=== PATIENT | male | born 1940 | race Caucasian/White ===

== ENCOUNTER 2022-08-07 09:10 | Outpatient (OUT) | payer MEDICARE, SELFPAY ==
--- NOTE | 2022-08-07 09:14 | CT_ITS ---
[address] [address] Patient Name: SUNNI JACKSON MRN: [id number] date: 1940 Sex: M Assigned Patient Location: CT Current Patient Location: CT Accession/Order Number: [id number] Exam Date: 08/07/2022 09:45 Report Date: 08/08/2022 07:39 At the request of: KATARINA RAMEY Procedure: CT chest wo con EXAMINATION: CT chest wo con HISTORY: Chronic Cough R05.3, Tobacco User Z72.0 COMPARISON: No relevant comparison available. TECHNIQUE: Multi-planar CT images were obtained without and/or with IV contrast as indicated by examination type. Axial, Coronal, and Sagittal images. Dose reduction techniques were achieved by using automated exposure control and/or adjustment of mA and/or kV according to patient size and/or use of iterative reconstruction technique. FINDINGS: LUNGS: Numerous blebs and small bulla throughout the lungs. Mild emphysematous changes. No acute infiltrates or mass. PLEURA: No mass, effusion, or pneumothorax. VASCULATURE: No abnormality. HERNAN: No mass or adenopathy. MEDIASTINUM: No mass or adenopathy. CARDIAC: No enlargement, pericardial thickening, or significant calcification. AORTA: No aneurysm or dissection. CHEST WALL: 8 mm hypodense nodule within right thyroid lobe. No axillary mass or lymphadenopathy. BONES: Marked degenerative disc disease of the visible lower cervical spine. L1 mild anterior wedging from remote compression fracture versus developmental, and mild grade 1 retrolisthesis of L1 on 2. LIMITED ABDOMEN: No suspicious findings Limited images of the upper abdomen. OTHER: Negative. IMPRESSION: 1. Mild emphysematous changes along with numerous chronic blebs and small bulla; grossly stable. 2. No acute infiltrates or mass. 3. Additional stable chronic changes detailed above. Electronically authenticated by: ARTEM MIRANDA Date: 08/08/2022 07:39
== END 2022-08-07 09:11 ==
LOC: CT 09:10
PROVIDERS: PCP Nurse Practitioner; Visit Provider Nurse Practitioner
DX: R05.3 Chronic cough (principal); Z72.0 Tobacco use
CPT/HCPCS: 71250

== ENCOUNTER 2022-09-21 08:59 | Outpatient (OUT) | payer MEDICARE, SELFPAY ==
[2022-09-21 09:07] LABS: Hemoglobin 11.9 g/dL (14.0-18.0)
--- NOTE | 2022-09-21 10:17 | RT_ITS ---
[facility] Test Date: 2022-09-21 Pat Name: SUNNI JACKSON Department: Room: - Gender: Male Mat Repairer: Cricket Dutta RRT : 1940 Requested By: KATARINA RAMEY Order Number: [id number] Reading MD: Salo England Interpretive Statements Pulmonary function testing was completed according to ATS criteria. Findings were considered accurate and reproducible. Both pre- and post-bronchodilator values utilized for spirometry. No prior studies available for comparison. Spirometry (based on pre-bronchodilator values): -FEV1/FVC: Reduced @ 66% -FEV1: Moderately reduced @ 75% -FVC: Reduced @ 78% -There is no significant bronchodilator response. Lung volumes by plethysmography (based on pre-bronchodilator values): -RV: Normal @ 112% -TLC: Normal @ 94% Diffusion capacity: -DLCO: Moderate reduction @ 69% when corrected for Hb 11.9g/dL Flow-volume loop: -Moderate obstructive pattern Impressions: -Moderate obstruction in spirometry without a bronchodilator response, normal lung volumes, moderate diffusion impairment. Overall study is compatible with COPD/emphysema. Clinical correlation required. Clinical correlation required. Electronically Signed On 09-21-2022 14:07:43 EDT by Salo England
[2022-09-21] MEDS: ALBUTEROL SULFATE 2.5 MG/3 ML VIAL NEB IH (10:18)
== END 2022-09-21 09:00 | disposition home or self-care (01) ==
LOC: CARD 08:59
PROVIDERS: PCP Nurse Practitioner; Visit Provider Nurse Practitioner
DX: J43.9 Emphysema, unspecified (principal); R94.2 Abnormal results of pulmonary function studies
CPT/HCPCS: 36415; 85018; 94060; 94726; 94729

== ENCOUNTER 2022-11-07 13:35 | Outpatient (OUT) | payer MEDICARE, SELFPAY ==
--- NOTE | 2022-11-07 13:49 | US_ITS ---
[place] [id number] Patient Name: SUNNI JACKSON MRN: [id number] date: 1940 Sex: M Assigned Patient Location: Current Patient Location: Accession/Order Number: [id number] Exam Date: 11/07/2022 13:45 Report Date: 11/08/2022 07:20 At the request of: KEITH DURHAM Procedure: US carotid duplex BI EXAMINATION: US carotid duplex BI HISTORY: Shortness Of Breath, Stenosis Of Carotid Artery COMPARISON: No relevant comparison available. TECHNIQUE: Duplex Doppler ultrasound analysis of carotid and vertebral arteries. . Bilateral carotid arterial duplex examination was performed using B-mode, color flow and spectral analysis. Carotid stenosis is reported according to validated velocity parameters, similar to NASCET criteria. FINDINGS: RIGHT CAROTID ARTERY Mild atherosclerotic plaque Subclavian: PSV: 197.6 cm/s cm/s EDV: 0.0 cm/s cm/s CCA: Prox: PSV: 70.8 cm/s cm/s EDV: 15.6 cm/s cm/s Mid: PSV: 52.9 cm/s cm/s EDV: 12.8 cm/s cm/s Distal: PSV: 47.8 cm/s cm/s EDV: 8.9 cm/s cm/s BULB: PSV: 42.6 cm/s cm/s EDV: 8.9 cm/s cm/s ICA: Prox: PSV: 63.3 cm/s cm/s EDV: 15.4 cm/s cm/s Mid: PSV: 69.7 cm/s cm/s EDV: 21.9 cm/s cm/s Distal: PSV: 95.0 cm/s cm/s EDV: 25.3 cm/s cm/s ECA: PSV: 155.4 cm/s cm/s EDV: 13.7 cm/s cm/s VERTEBRAL: PSV: 54.2 cm/s cm/s EDV: 15.4 cm/s cm/s, antegrade ICA/CCA ratio: PSV: 2.0 EDV: 2.8 LEFT CAROTID ARTERY Mild atherosclerotic plaque Subclavian: PSV: 91.8 cm/s cm/s EDV: 0.0 cm/s CCA: Prox: PSV: 59.4 cm/s cm/s EDV: 15.4 cm/s Mid: PSV: 52.9 cm/s cm/s EDV: 15.4 cm/s Distal: PSV: 54.2 cm/s cm/s EDV: 16.7 cm/s BULB: PSV: 41.3 cm/s cm/s EDV: 11.5 cm/s ICA: Prox: PSV: 92.7 cm/s cm/s EDV: 23.0 cm/s Mid: PSV: 92.7 cm/s cm/s EDV: 30.0 cm/s Distal: PSV: 88.1 cm/s cm/s EDV: 25.3 cm/s ECA: PSV: 82.2 cm/s cm/s EDV: 11.1 cm/s VERTEBRAL: PSV: 82.2 cm/s cm/s EDV: 22.5 cm/s antegrade ICA/CCA ratio: PSV: 1.7 EDV: 1.4 US/US carotid duplex BI IMPRESSION: 0-49% flow stenosis bilateral internal carotid arteries Spectral Doppler US Thresholds (Reference: Koby EG, et al. Radiology 2000; 214:247-252) Stenosis (%) PSV (cm/sec) VICA/VCCA 0-49 <150 <2.5 50-69 150-225 2.5-4.0 >70 >225 >4.0 Electronically authenticated by: SAVAGE OATES Date: 11/08/2022 07:20
== END 2022-11-07 13:36 | disposition home or self-care (01) ==
LOC: US 13:36
PROVIDERS: PCP Nurse Practitioner
DX: I73.9 Peripheral vascular disease, unspecified (principal); I65.29 Occlusion and stenosis of unspecified carotid artery; R06.02 Shortness of breath; R09.89 Other specified symptoms and signs involving the circulatory and respiratory systems
CPT/HCPCS: 93880

== ENCOUNTER 2022-11-10 08:29 | Outpatient (OUT) | payer MEDICARE, SELFPAY ==
--- NOTE | 2022-11-10 08:37 | MR_ITS ---
[address] [address] Patient Name: SUNNI JACKSON MRN: [id number] date: 1940 Sex: M Assigned Patient Location: MRI Current Patient Location: MRI Accession/Order Number: [id number] Exam Date: 11/10/2022 09:00 Report Date: 11/10/2022 14:55 At the request of: DELMY MENA Procedure: MR lumbar spine wo con EXAMINATION: MR lumbar spine wo con HISTORY: Spinal Stenosis M48.061 COMPARISON: No relevant comparison available. TECHNIQUE: A variety of imaging planes and parameters were utilized for visualization of suspected pathology. FINDINGS: For the purposes of numbering, sagittal T2 image # 8 extends from the T10-T11 vertebral body superiorly to the S3 level inferiorly. PARASPINAL AREA: Ectasia of the distal abdominal aorta measuring 2.5 cm in diameter BONES: Mild anterior wedging at T12 and L1 vertebral bodies, chronic. Moderate degenerative spondylosis. 2 mm retrolisthesis of L1 on L2 CORD/CAUDA EQUINA: Normal caliber, contour, and signal intensity. DISC LEVELS: 12-L1: Moderate degenerative disc disease is present without visible neural impingement. L1-L2: Moderate degenerative disc disease is present without visible neural impingement. L2-L3: Moderate degenerative disc disease is present without visible neural impingement. L3-L4: Disc desiccation. Left foraminal disc herniation the protrusion type extending posteriorly up to 3.5 mm sagittal image #6. No central or foraminal stenosis L4-L5: Early degenerative disc disease is present without focal protrusion or neural impingement. L5-S1: Moderate disc space narrowing and disc desiccation. Moderate diffuse disc bulge with right foraminal disc herniation of the protrusion type extending posteriorly up to 3 mm. No central canal or left foraminal stenosis. Moderate narrowing of the right neural foramen MR/MR lumbar spine wo con IMPRESSION: Degenerative changes most significant at L5-S1 where there is moderate right foraminal stenosis Electronically authenticated by: SAVAGE OATES Date: 11/10/2022 14:55
== END 2022-11-10 08:30 | disposition home or self-care (01) ==
LOC: MRI 08:29
PROVIDERS: PCP Nurse Practitioner; Visit Provider Psychiatry & Neurology Neurology
DX: M48.061 Spinal stenosis, lumbar region without neurogenic claudication (principal)
CPT/HCPCS: 72148

== ENCOUNTER 2022-12-26 07:15 | Outpatient (RCR) | payer MEDICARE, SELFPAY | END 2023-01-10 16:27 | disposition home or self-care (01) | LOC: PT 07:15 | PROVIDERS: PCP Nurse Practitioner; Visit Provider Psychiatry & Neurology Neurology | DX: M50.30 Other cervical disc degeneration, unspecified cervical region (principal); M48.02 Spinal stenosis, cervical region; R29.3 Abnormal posture | CPT/HCPCS: 97012; 97110; 97161 ==

== ENCOUNTER 2023-04-10 08:41 | Outpatient (OUT) | payer MEDICARE, SELFPAY ==
--- OUTSIDE RECORDS SUMMARY | 2023-04-10 08:50 | XMS_ITS | CCD ---
Author Name Unknown Address [address] [place] [address] Organization [facility] Care Team Providers Care [employer] Ramp Attendant Name Role Phone AICHHOLZ, WEAVING SUPERVISOR KATARINA Attending Unavailable AICHHOLZ, WEAVING SUPERVISOR KATARINA Consulting Unavailable AICHHOLZ, WEAVING SUPERVISOR KATARINA Primary Care Unavailable AICHHOLZ, WEAVING SUPERVISOR KATARINA Admitting Unavailable AICHHOLZ, WEAVING SUPERVISOR KATARINA Attending Unavailable AICHHOLZ, WEAVING SUPERVISOR KATARINA Consulting Unavailable AICHHOLZ, WEAVING SUPERVISOR KATARINA Primary Care Unavailable AICHHOLZ, WEAVING SUPERVISOR KATARINA Admitting Unavailable DR SAVAGE OATES V Consulting Unavailable ALINE, YULIYA Admitting Unavailable ALINE, YULIYA Attending Unavailable AICHHOLZ, WEAVING SUPERVISOR KATARINA Primary Care Unavailable ALINE, YULIYA Consulting Unavailable AICHHOLZ, WEAVING SUPERVISOR KATARINA Admitting Unavailable AICHHOLZ, WEAVING SUPERVISOR KATARINA Consulting Unavailable AICHHOLZ, WEAVING SUPERVISOR KATARINA Attending Unavailable AICHHOLZ, WEAVING SUPERVISOR KATARINA Primary Care Unavailable DR ARTEM MIRANDA Consulting Unavailable AICHHOLZ, WEAVING SUPERVISOR KATARINA Attending Unavailable AICHHOLZ, WEAVING SUPERVISOR KATARINA Consulting Unavailable AICHHOLZ, WEAVING SUPERVISOR KATARINA Primary Care Unavailable AICHHOLZ, WEAVING SUPERVISOR KATARINA Admitting Unavailable DR BART AL Admitting Unavailabl e SERVANDO, DR BART Craig Attending Unavailabl e DR BART AL Consulting Unavailabl e AICHHOLZ, WEAVING SUPERVISOR KATARINA Primary Care Unavailable CHRISTEN ARREDONDO Consulting Unavailable SOPHIE SLATER Consulting Unavailable GISELLE GORDILLO Consulting Unavailable DR SAVAGE OATES V Consulting Unavailable AICHHOLZ, WEAVING SUPERVISOR KATARINA Attending Unavailable AICHHOLZ, WEAVING SUPERVISOR KATARINA Primary Care Unavailable AICHHOLZ, WEAVING SUPERVISOR KATARINA Admitting Unavailable AICHHOLZ, WEAVING SUPERVISOR KATARINA Consulting Unavailable AICHHOLZ, WEAVING SUPERVISOR KATARINA Attending Unavailable AICHHOLZ, WEAVING SUPERVISOR KATARINA Consulting Unavailable AICHHOLZ, WEAVING SUPERVISOR KATARINA Primary Care Unavailable AICHHOLZ, WEAVING SUPERVISOR KATARINA Admitting Unavailable DELMY MENA Attending Unavailable KATARINA RAMEY Attending Unavailable Allergies Allergy Classification Reported Allergen(s) Allergy Type Date of Onset Reaction(s) Facility (1 source) Bacitracin / Neomycin / Polymyxin B Drug Allergy 09-23-2013 [facility] Repository (1 source) black walnut pollen extract Drug Allergy [facility] Problems Active Problems Problem Classification Problem Date Documented Da te Episodic/Chronic E Codes: Fall (1 source) Fall (on)(from) sidewalk curb, initial encounter; Translations: [FALL ON FROM SIDEWALK CURB INITIAL] Onset: 06-13-2022 Episodic Essential hypertension (4 sources) Essential (primary) hypertension; Translations: [ESSENTIAL PRIMARY HYPERTENSION] Onset: 07-20-2022 Chronic Occlusion or stenosis of precerebral arteries (4 sources) Occlusion and stenosis of left carotid artery; Translations: [OCCLUSION AND STENOSIS LT CAROTID ART] Onset: 10-29-2021 Chronic Other aftercare (1 source) long-term (current) use of aspirin; Translations: [LONG-TERM CURRENT USE OF ASPIRIN] Onset: 06-13-2022 Episodic Other aftercare (1 source) Other predatory animal exterminator (current) drug therapy; Translations: [OTH SOLAR ENERGY SALES SPECIALIST CURRENT DRUG THERAPY] Onset: 06-13-2022 Episodic Substance-related disorders (1 source) Nicotine dependence, cigarettes, uncomplicated; Translations: [NICOTINE DEPEND CIGARETTES UNCOMP] Onset: 06-13-2022 Chronic Superficial injury; contusion (4 sources) Contusion of other part of head, initial encounter; Translations: [Abrasion of other part of head, initial encounter] Onset: 06-11-2022 Episodic Thyroid disorders (5 sources) Nontoxic single thyroid nodule; Translations: [NONTOXIC SINGLE THYROID NODULE] Onset: 01-07-2022 Chronic Unclassified (3 sources) COUGH, UNSPECIFIED; Translations: [COUGH, UNSPECIFIED] Onset: 05-31-2022 Past or Other Problems Problem Classification Problem Date Documented Date Episodic/Chronic Deficiency and other anemia (5 sources) Anemia, unspecified; Translations: [ANEMIA UNSPECIFIED] Onset: 01-07-2022 Episodic Other screening for suspected conditions (not mental disorders or infectious disease) (6 sources) Abnormal finding of blood chemistry, unspecified; Translations: [Encounter for screening for malignant neoplasm of prostate] Onset: 01-07-2022 Episodic Residual codes; unclassified (1 source) Other specified postprocedural states; Translations: [OTH SPECIFIED POSTPROCEDURAL STATES] Onset: 11-01-2021 Episodic Unclassified (1 source) COUGH, UNSPECIFIED; Translations: [COUGH, UNSPECIFIED] Onset: 05-24-2022 Results Test Name Value Interpretation Reference Range Facil ity US THYROIDon 07-26-2022 US THYROID EXAMINATION: US THYROID HISTORY: Non-toxic uninodular goiter COMPARISON: Ultrasound thyroid 07/05/2021 FINDINGS: RIGHT LOBE: 1.1 x 0.8 x 0.7 cm TR 2 nodule within mid-inferior pole. 1.3 x 1.1 x 1.2 cm TR 1 nodular within inferior pole. Lobe size: 3.6 x 1.8 x 1.4 cm LEFT LOBE: 1.1 cm TR 4 nodule within mid body, and 0.7 cm TR 3 nodule within inferior pole. Lobe size: 3.9 x 2.0 x 1.2 cm ISTHMUS: Normal size and echotexture. Thickness: 3 mm IMPRESSION: 1. Grossly stable thyroid nodules. TR4 (moderately suspicious): If > 1.0 cm Follow-up ultrasound in 1, 2, 3, and 5 years. If > 1.5 cm fine needle aspiration (FNA). TR3 (mildly suspicious): > 1.5 cm, follow-up ultrasound in 1, 3, and 5 years. > 2.5 cm, fine needle aspiration. TI-RADS 1 and 2: Benign nodules. Noticeably benign pattern (0% risk of malignancy) Electronically authenticated by: ARTEM MIRANDA Date: 2022-07-26 09:12 Normal [facility] [place] [facility] PROF CHEM 8 (BAS METB)on Anion gap [Moles/Vol] 11.5 mmol/L Normal [facility] [place] [facility] Comment on above: Performed By: #### B MP #### [facility] [address], [place] [address] Dr. Bethany Killian Calcium [Mass/Vol] 8.5 mg/dL Normal 8.5-10.1 [facility] Comment on above: Performed By: #### B MP #### [facility] [address] [place] [address] [address] Bethany Killian Chloride [Moles/Vol] 109 mmol/L Critically high 98-107 [facility] Comment on above: Performed By: #### B MP #### [facility] [address] [address] [address] Bethany Killian CO2 [Moles/Vol] 26.2 mmol/L Normal 21.0-32.0 [facility] Comment on above: Performed By: #### B MP #### [facility] [address] [address] [address] Bethany Killian Creatinine [Mass/Vol] 1.06 mg/dL Normal 0.70-1.30 [facility] Comment on above: Performed By: #### B MP #### [facility] [address] [place] [address] Dr. Bethany Killian EGFR-AF NAURUAN >60 Normal >=60 [facility] Comment on above: Performed By: #### B MP #### [facility] [address] [address] [address] Bethany Killian EGFR-NON AF NAURUAN >60 Normal >=60 [facility] Comment on above: Performed By: #### B MP #### [facility] [address] [place] [address] Dr. Bethany Killian Glucose [Mass/Vol] 80 mg/dL Normal 74-106 [facility] Comment on above: Performed By: #### B MP #### [facility] [address] [place] [address] Dr. Bethany Killian Potassium [Moles/Vol] 4.7 mmol/L Normal 3.5-5.1 [facility] Comment on above: Performed By: #### B MP #### [facility] [address] [address] [address] Bethany Killian Sodium [Moles/Vol] 142 mmol/L Normal 136-145 [facility] Comment on above: Performed By: #### B MP #### [facility] [address] [address] [address] Bethany Killian Urea nitrogen [Mass/Vol] 26.0 mg/dL Critically high 7.0-18.0 [facility] [place] [facility] Comment on above: Performed By: #### B MP #### [facility] [address] [place], [place] [address] Dr. Bethany Killian Urea nitrogen/Creatinine [Mass ratio] 24.5 mg/mg Normal [facility] [place] [facility] Comment on above: Performed By: #### B MP #### [facility] [address], [place] [address] CSPINE WO CONon 3 CT CSPINE WO CON EXAMINATION: CT CSPINE WO CON HISTORY: UNSPECIFIED INJURY OF HEAD, INITIAL ENCOUNTER COMPARISON: None. TECHNIQUE: CT Cervical spine without IV contrast. Coronal and sagittal reformations were performed. Dose reduction techniques were achieved by using automated exposure control and/or adjustment of mA and/or kV according to patient size and/or use of iterative reconstruction technique. EXAMINATION: CT CSPINE WO CON HISTORY: UNSPECIFIED INJURY OF HEAD, INITIAL ENCOUNTER COMPARISON: None. TECHNIQUE: CT Cervical spine without IV contrast. Coronal and sagittal reformations were performed. Dose reduction techniques were achieved by using automated exposure control and/or adjustment of mA and/or kV according to patient size and/or use of iterative reconstruction technique. FINDINGS: CV JUNCTION: Normal foramen magnum with no Chiari malformation. PARASPINAL: Normal with no visible mass. BONES: No fracture, pars defect, or osseous lesion. OTHER: None. DISC LEVELS: C1-C2: Within normal limits for age. C2-C3: Early degenerative disc disease is present. The central canal and neural foramina are satisfactorily maintained. C3-C4: Early degenerative disc disease is present. The central canal is satisfactorily maintained. There is right foraminal stenosis by uncovertebral osteophytosis. The left foramen is satisfactorily maintained. C4-C5: Moderate degenerative disc disease is present. Mild central canal stenosis. There is bilateral foraminal stenosis by uncovertebral osteophytosis.. C5-C6: Moderate degenerative disc disease is present. The central canal is satisfactorily maintained. There is bilateral frontal stenosis by uncovertebral osteophytosis, greater on the left than on the right. C6-C7: Moderate degenerative disc disease is present. The central canal is satisfactorily maintained. There is mild bilateral foraminal stenosis by uncovertebral osteophytosis. C7-T1: Moderate degenerative disc disease is present. The central canal is satisfactorily maintained. There is mild bilateral foraminal stenosis. C7 shows a mild degenerative anterolisthesis upon T1. CONCLUSION: 1. Multilevel cervical spondylosis. 2. No evidence for acute fracture. Electronically authenticated by: Lam GORDILLO Date: 2022-06-11 19:49 Normal [facility] CT HEAD WO CONon 06-11-2022 CT HEAD WO CON EXAM: CT HEAD WO CON COMPARISON: 03/17/2021. CLINICAL INFORMATION: Trauma, pain. TECHNIQUE: Axial noncontrast images were obtained through the brain and reconstructed using brain and bone algorithms with sagittal and coronal reconstructions. Dose reduction techniques were achieved by using automated exposure control and/or adjustment of mA and/or kV according to patient size and/or use of iterative reconstruction technique. FINDINGS: BRAIN: No intracranial hemorrhage. No extra-axial collection. No mass or mass effect. No midline shift. Basurto-white matter differentiation is preserved. Low-lying cerebellar tonsils again noted. Mild chronic microvascular ischemic change better seen on prior brain MRI from 03/17/2021. CSF: Ventricles and sulci appropriate for age. Basal cisterns are patent. ORBITS: Prior cataract surgery. SINUSES AND MASTOID AIR CELLS: Paranasal sinuses are clear. Postsurgical change of bilateral mastoid. Bilateral mastoid/middle ears clear. BONES: No acute osseous abnormality. SOFT TISSUES: Unremarkable. IMPRESSION: No acute intracranial abnormality. Electronically authenticated by: CHRISTEN ARREDONDO Date: 2022-06-11 19:24 Normal [facility] XR CHEST 2 Von 05-25-2022 XR CHEST 2 V EXAMINATION: XR CHES T 2 V HISTORY: Cough COMPARISON: 04/04/2018 TECHNIQUE: PA and lateral FINDINGS: LUNGS: No significant pulmonary parenchymal abnormalities. VASCULATURE: No increased pulmonary vasculature. PLEURA: No pneumothorax, effusion, or pleural thickening. CARDIAC: No cardiomegaly or cardiac silhouette abnormality. MEDIASTINUM: No visible mass or adenopathy. Aortic atherosclerosis BONES: Moderate degenerative disc disease and spondylosis without visible acute abnormalities. OTHER: Negative. IMPRESSION: No acute disease. Electronically authenticated by: SAVAGE OATES Date: 2022-05-25 07:20 Normal [facility] PROF CHEM 8 (BAS METB)on 01- 19-2023 Anion gap [Moles/Vol] 12.2 mmol/L Normal [facility] Comment on above: Performed By: #### B MP ####[facility] [address] [address]Dr. Bethany Killian Calcium [Mass/Vol] 8.7 mg/dL Normal 8.5-10.1 [facility] Comment on above: Performed By: #### B MP ####[facility] [address] [address]Dr. Bethany Killian Chloride [Moles/Vol] 106 mmol/L Normal 98-107 [facility] Comment on above: Performed By: #### B MP ####[facility] [address] [place], [place] [address]Dr. Bethany Constantin CO2 [Moles/Vol] 26.0 mmol/L Normal 21.0-32.0 [facility] Comment on above: Performed By: #### B MP ####[facility] [address] [place], [place] [address]Dr. Bethany Constantin Creatinine [Mass/Vol] 1.04 mg/dL Normal 0.70-1.30 [facility] Comment on above: Performed By: #### B MP ####[facility] [address] [place], [place] [address]Dr. Bethany Constantin EGFR-AF NAURUAN >60 Normal >=60 [facility] Comment on above: Performed By: #### B MP ####[facility] [address] [place], [place] [address]Dr. Bethany Killian EGFR-NON AF NAURUAN >60 Normal >=60 [facility] Comment on above: Performed By: #### B MP ####[facility] [address] [place], [place] [address]Dr. Bethany Killian Glucose [Mass/Vol] 85 mg/dL Normal 74-106 [facility] Comment on above: Performed By: #### B MP ####[facility] [address] [place], [place] [address]Dr. Bethany Killian Potassium [Moles/Vol] 4.2 mmol/L Normal 3.5-5.1 [facility] Comment on above: Performed By: #### B MP ####[facility] [address] [id number] Killian Sodium [Moles/Vol] 140 mmol/L Normal 136-145 [facility] Comment on above: Performed By: #### B MP ####[facility] [address] [address]DrBhavin Killian Urea nitrogen [Mass/Vol] 29.0 mg/dL Critically high 7.0-18.0 [facility] [place] [facility] Comment on above: Performed By: #### B MP ####[facility] [address] [address]DrBhavin Killian Urea nitrogen/Creatinine [Mass ratio] 27.9 mg/mg Normal [facility] [place] [facility] Comment on above: Performed By: #### B MP ####[facility] [address] [address]DrBhavin Killian CBC AUTO DIFFon 02-24-2022 BASO # 0.0 103/ul Normal 0.0-0.1 [facility] [place] [facility] Comment on above: Performed By: #### C BC #### [facility] [address] [place] [address] [address] Bethany Killian Basophils/100 WBC (Bld) 0.3 % Normal 0.2-2.0 [facility] [place] [facility] Comment on above: Performed By: #### C BC #### [facility] [address] [address] [address] Bethany Killian EO # 0.2 103/ul Normal 0.0-0.7 [facility] [place] [facility] Comment on above: Performed By: #### C BC #### [facility] [address] [place] [address] [address] Bethany Killian Eosinophils/100 WBC (Bld) 1.8 % Normal 0.9-7.0 [facility] [place] [facility] Comment on above: Performed By: #### C BC #### [facility] [address] [address] [address] Bethany Killian Erythrocyte distribution width (RBC) [Ratio] 14.8 % Normal 11.0-15.0 [facility] [place] [facility] Comment on above: Performed By: #### C BC #### [facility] [address] [address] [address] Bethany Killian Hematocrit (Bld) [Volume fraction] 38.3 % Critically low 42.0-54.0 [facility] [place] [facility] Comment on above: Performed By: #### C BC #### [facility] [address] [place] [address] Dr. Bethany Killian Hemoglobin (Bld) [Mass/Vol] 12.6 g/dL Critically low 14.0-18.0 [facility] [place] [facility] Comment on above: Performed By: #### C BC #### [facility] [address] [place] [address] Dr. Bethany Killian IG # 0.05 10e3/ul Critically high 0.00-0.03 [facility] [place] Comment on above: Performed By: #### C BC #### [facility] [address] [place] [address] Dr. Bethany Killian IG % 0.6 % Critically high 0.0-0.5 [facility] Comment on above: Performed By: #### C BC #### [facility] [address] [place] [address] Dr. Bethany Killian LYMPH # 1.8 103/ul Normal 1.2-3.8 [facility] [place] [facility] Comment on above: Performed By: #### C BC #### [facility] [address] [place] [address] Dr. Bethany Killian Lymphocytes/100 WBC (Bld) 20.2 % Critically low 20.5-60.0 [facility] [place] [facility] Comment on above: Performed By: #### C BC #### [facility] [address] [place] [address] Dr. Bethany Killian MANUAL DIFF REQ NO Normal [facility] Comment on above: Performed By: #### C BC #### [facility] [address] [place] [address] Dr. Bethany Killian MCH (RBC) [Entitic mass] 29.9 pg Normal 25.9-34.0 [facility] [place] [facility] Comment on above: Performed By: #### C BC #### [facility] [address] [place] [address] [address] Bethany Killian MCHC (RBC) [Mass/Vol] 32.9 g/dL Normal 29.9-35.2 [facility] [place] [facility] Comment on above: Performed By: #### C BC #### [facility] [address] [place] [address] [address] Bethany Killian MCV (RBC) [Entitic vol] 90.8 fL Normal 80.0-94.0 [facility] [place] [facility] Comment on above: Performed By: #### C BC #### [facility] [address] [place] [address] [address] Bethany Killian MONO # 0.9 103/ul Critically high 0.3-0.8 [facility] Comment on above: Performed By: #### C BC #### [facility] [address] [place] [address] [address] Bethany Killian Monocytes/100 WBC (Bld) 9.9 % Normal 1.7-12.0 [facility] [place] [facility] Comment on above: Performed By: #### C BC #### [facility] [address] [place] [address] [address] Bethany Killian NEUT # 5.9 103/ul Normal 1.4-6.5 [facility] [place] [facility] Comment on above: Performed By: #### C BC #### [facility] [address] [place] [address] [address] Bethany Killian Neutrophils/100 WBC (Bld) 67.2 % Normal 43.0-75.0 [facility] Comment on above: Performed By: #### C BC #### [facility] [address] [place] [address] [address] Bethany Killian Platelet mean volume (Bld) [Entitic vol] 11.8 fL Normal 9.5-13.5 [facility] Comment on above: Performed By: #### C BC #### [facility] [address] [place] [address] [address] Bethany Killian PLT 242 103/ul Normal 150-450 [facility] Comment on above: Performed By: #### C BC #### [facility] [address] [place] [address] [address] Bethany Killian RBC 4.22 106/ul Critically low 4.70-6.10 [facility] Comment on above: Performed By: #### C BC #### [facility] [address] [place] [address] [address] Bethany Killian WBC 8.8 103/ul Normal 4.0-11.0 [facility] Comment on above: Performed By: #### C BC #### [facility] [address] [place] [address] [address] Bethany Killian FERRITINon 02-24-2022 Ferritin [Mass/Vol] 156.0 ng/mL Normal 26.0-388.0 [facility] [place] [facility] Comment on above: Performed By: #### I BRAYAN, FERR #### [facility] [address] [place] [address] Dr. Bethany Killian IRONon 02-24-2022 Iron [Mass/Vol] 99.0 ug/dL Normal 65.0-175.0 [facility] Comment on above: Performed By: #### I BRAYAN, FERR #### [facility] [address] [place] [address] [address] Bethany Killian PROF CHEM 8 (BAS METB)on Anion gap [Moles/Vol] 12.9 mmol/L Normal [facility] [place] [facility] Comment on above: Result Comment: Prev iously reported as: 0.3 On 02/24/2022 13:42 By DM9 Performed By: #### B MP ####[facility] [address] [address]Dr. Bethany Killian Calcium [Mass/Vol] 8.9 mg/dL Normal 8.5-10.1 [facility] Comment on above: Performed By: #### B MP ####[facility] [address] [address]Dr. Bethany Killian Chloride [Moles/Vol] 102 mmol/L Normal 98-107 [facility] Comment on above: Result Comment: Prev iously reported as: 108 On 02/24/2022 13:42 By DM9 Performed By: #### B MP ####[facility] [address] [place], [place] [address]Dr. Bethany Killian CO2 [Moles/Vol] 27.4 mmol/L Normal 21.0-32.0 [facility] Comment on above: Result Comment: Prev iously reported as: 27.8 On 02/24/2022 13:42 By DM9 Performed By: #### B MP ####[facility] [address] [place], [place] [address]Dr. Bethany Killian Creatinine [Mass/Vol] 1.21 mg/dL Normal 0.70-1.30 [facility] Comment on above: Performed By: #### B MP ####[facility] [address] [place], [place] [address]Dr. Bethany Killian EGFR-AF NAURUAN >60 Normal >=60 [facility] Comment on above: Performed By: #### B MP ####[facility] [address] [place], [place] [address]Dr. Bethany Killian EGFR-NON AF NAURUAN 58 mL/min/1.73m2 Critically low >=60 [facility] Comment on above: Performed By: #### B MP ####[facility] [address] [place], [place] [address]Dr. Bethany Killian Glucose [Mass/Vol] 98 mg/dL Normal 74-106 [facility] Comment on above: Performed By: #### B MP ####[facility] [address] [place], [place] [address]Dr. Bethany Killian Potassium [Moles/Vol] 4.3 mmol/L Normal 3.5-5.1 [facility] Comment on above: Result Comment: Prev iously reported as: 4.1 On 02/24/2022 13:42 By DM9 Performed By: #### B MP ####[facility] [address] [place], [place] [address]Dr. Bethany Killian Sodium [Moles/Vol] 138 mmol/L Normal 136-145 [facility] Comment on above: Result Comment: Prev iously reported as: 132 On 02/24/2022 13:42 By DM9 Performed By: #### B MP ####[facility] [address] [address]Dr. Bethany Killian Urea nitrogen [Mass/Vol] 37.0 mg/dL Critically high 7.0-18.0 [facility] [place] [facility] Comment on above: Performed By: #### B MP ####[facility] [address] [address]Dr. Bethany Killian Urea nitrogen/Creatinine [Mass ratio] 30.6 mg/mg Normal [facility] [place] [facility] Comment on above: Performed By: #### B MP ####[facility] [address] [address]Dr. Bethany Killian CBC AUTO DIFFon 01-02-2022 BASO # 0.0 103/ul Normal 0.0-0.1 [facility] [place] [facility] Comment on above: Performed By: #### C BC #### [facility] [address] [place] [address] Dr. Bethany Killian Basophils/100 WBC (Bld) 0.5 % Normal 0.2-2.0 [facility] [place] [facility] Comment on above: Performed By: #### C BC #### [facility] [address] [place] [address] Dr. Bethany Killian EO # 0.1 103/ul Normal 0.0-0.7 [facility] [place] [facility] Comment on above: Performed By: #### C BC #### [facility] [address] [place] [address] Dr. Bethany Killian Eosinophils/100 WBC (Bld) 1.7 % Normal 0.9-7.0 [facility] [place] [facility] Comment on above: Performed By: #### C BC #### [facility] [address] [place] [address] Dr. Bethany Killian Erythrocyte distribution width (RBC) [Ratio] 14.6 % Normal 11.0-15.0 [facility] [place] [facility] Comment on above: Performed By: #### C BC #### [facility] [address] [place] [address] Dr. Bethany Killian Hematocrit (Bld) [Volume fraction] 37.8 % Critically low 42.0-54.0 [facility] [place] [facility] Comment on above: Performed By: #### C BC #### [facility] [address] [place] [address] Dr. Bethany Killian Hemoglobin (Bld) [Mass/Vol] 12.0 g/dL Critically low 14.0-18.0 [facility] [place] [facility] Comment on above: Performed By: #### C BC #### [facility] [address] [place] [address] Dr. Bethany Killian IG # 0.04 10e3/ul Critically high 0.00-0.03 [facility] [place] Comment on above: Performed By: #### C BC #### [facility] [address] [place] [address] Dr. Bethany Killian IG % 0.5 % Normal 0.0-0.5 [facility] [place] [facility] Comment on above: Performed By: #### C BC #### [facility] [address] [place] [address] Dr. Bethany Killian LYMPH # 1.2 103/ul Normal 1.2-3.8 [facility] [place] [facility] Comment on above: Performed By: #### C BC #### [facility] [address] [place] [address] Dr. Bethany Killian Lymphocytes/100 WBC (Bld) 15.1 % Critically low 20.5-60.0 [facility] [place] [facility] Comment on above: Performed By: #### C BC #### [facility] [address] [place] [address] Dr. Bethany Killian MANUAL DIFF REQ NO Normal [facility] Comment on above: Performed By: #### C BC #### [facility] [address] [place] [address] Dr. Bethany Killian MCH (RBC) [Entitic mass] 29.8 pg Normal 25.9-34.0 [facility] [place] [facility] Comment on above: Performed By: #### C BC #### [facility] [address] [place] [address] Dr. Bethany Killian MCHC (RBC) [Mass/Vol] 31.7 g/dL Normal 29.9-35.2 [facility] [place] [facility] Comment on above: Performed By: #### C BC #### [facility] [address] [address] [address] Bethany Killian MCV (RBC) [Entitic vol] 93.8 fL Normal 80.0-94.0 [facility] [place] [facility] Comment on above: Performed By: #### C BC #### [facility] [address] [address] [address] Bethany Killian MONO # 0.8 103/ul Normal 0.3-0.8 [facility] [place] [facility] Comment on above: Performed By: #### C BC #### [facility] [address] [place] [address] Dr. Bethany Killian Monocytes/100 WBC (Bld) 10.3 % Normal 1.7-12.0 [facility] [place] [facility] Comment on above: Performed By: #### C BC #### [facility] [address] [place] [address] Dr. Bethany Killian NEUT # 5.8 103/ul Normal 1.4-6.5 [facility] [place] [facility] Comment on above: Performed By: #### C BC #### [facility] [address] [place] [address] Dr. Bethany Killian Neutrophils/100 WBC (Bld) 71.9 % Normal 43.0-75.0 [facility] [place] [facility] Comment on above: Performed By: #### C BC #### [facility] [address] [place] [address] Dr. Bethany Killian Platelet mean volume (Bld) [Entitic vol] 12.2 fL Normal 9.5-13.5 [facility] [place] [facility] Comment on above: Performed By: #### C BC #### [facility] [address] [place] [address] Dr. Bethany Killian PLT 241 103/ul Normal 150-450 [facility] Comment on above: Performed By: #### C BC #### [facility] [address] [place] [address] Dr. Bethany Killian RBC 4.03 106/ul Critically low 4.70-6.10 [facility] Comment on above: Performed By: #### C BC #### [facility] [address] [address] [address] Bethany Killian WBC 8.1 103/ul Normal 4.0-11.0 [facility] [place] [facility] Comment on above: Performed By: #### C BC #### [facility] [address] [address] [address] Bethany Killian FREE T4on 01-02-2022 Free T4 [Mass/Vol] 1.00 ng/dL Normal 0.76-1.46 [facility] Comment on above: Performed By: #### F T4, PSASC ####[facility] [address] [address]DrBhavin Killian PROF 14(COMP METB)on 022 Albumin [Mass/Vol] 3.1 g/dL Critically low 3.4-5.0 [facility] Comment on above: Performed By: #### C MP, TSH ####[facility] [address] [address]Dr. Bethany Killian Albumin/Globulin [Mass ratio] 0.9 {ratio} Normal [facility] [place] [facility] Comment on above: Performed By: #### C MP, TSH ####[facility] [address] [address]Dr. Bethany Killian ALP [Catalytic activity/Vol] 78 U/L Normal 46-116 [facility] [place] [facility] Comment on above: Performed By: #### C MP, TSH ####[facility] [address] [address]Dr. Bethany Killian ALT [Catalytic activity/Vol] 19 U/L Normal 16-63 [facility] [place] [facility] Comment on above: Performed By: #### C MP, TSH ####[facility] [address] [address]Dr. Bethany Killian Anion gap [Moles/Vol] 9.0 mmol/L Normal [facility] [place] [facility] Comment on above: Performed By: #### C MP, TSH ####[facility] [address] [address]Dr. Bethany Killian AST [Catalytic activity/Vol] 12 U/L Critically low 15-37 [facility] [place] [facility] Comment on above: Performed By: #### C MP, TSH ####[facility] [address] [place], [place] [address]Dr. Bethany Killian Bilirubin [Mass/Vol] 0.4 mg/dL Normal 0.2-1.0 [facility] [place] [facility] Comment on above: Performed By: #### C MP, TSH ####[facility] [address] [place], [place] [address]Dr. Bethany Killian Calcium [Mass/Vol] 8.6 mg/dL Normal 8.5-10.1 [facility] Comment on above: Performed By: #### C MP, TSH ####[facility] [address] [place], [place] [address]Dr. Bethany Killian Chloride [Moles/Vol] 105 mmol/L Normal 98-107 [facility] Comment on above: Performed By: #### C MP, TSH ####[facility] [address] [place], [place] [address]Dr. Bethany Killian CO2 [Moles/Vol] 28.6 mmol/L Normal 21.0-32.0 [facility] Comment on above: Performed By: #### C MP, TSH ####[facility] [address] [place], [place] [address]Dr. Bethany Killian Creatinine [Mass/Vol] 0.99 mg/dL Normal 0.70-1.30 [facility] Comment on above: Performed By: #### C MP, TSH ####[facility] [address] [place], [place] [address]Dr. Bethany Constantin EGFR-AF NAURUAN >60 Normal >=60 [facility] Comment on above: Performed By: #### C MP, TSH ####[facility] [address] [place], [place] [address]Dr. Felicitawalker Constantin EGFR-NON AF NAURUAN >60 Normal >=60 [facility] Comment on above: Performed By: #### C MP, TSH ####[facility] [address] [place], [place] [address]Dr. Bethany Killian Globulin (S) [Mass/Vol] 3.5 g/dL Normal [facility] [place] [facility] Comment on above: Performed By: #### C MP, TSH ####[facility] [address] [address]Dr. Bethany Killian Glucose [Mass/Vol] 85 mg/dL Normal 74-106 [facility] Comment on above: Performed By: #### C MP, TSH ####[facility] [address] [place], [place] [address]Dr. Bethany Killian Potassium [Moles/Vol] 4.6 mmol/L Normal 3.5-5.1 [facility] Comment on above: Performed By: #### C MP, TSH ####[facility] [address] [place], [place] [address]Dr. Bethany Killian Protein [Mass/Vol] 6.6 g/dL Normal 6.4-8.2 [facility] Comment on above: Performed By: #### C MP, TSH ####[facility] [address] [place], [place] [address]Dr. Bethany Killian Sodium [Moles/Vol] 138 mmol/L Normal 136-145 [facility] Comment on above: Performed By: #### C MP, TSH ####[facility] [address] [place], [place] [address]Dr. Bethany Killian Urea nitrogen [Mass/Vol] 30.0 mg/dL Critically high 7.0-18.0 [facility] [place] [facility] Comment on above: Performed By: #### C MP, TSH ####[facility] [address] [place], [place] [address]Dr. Bethany Killian Urea nitrogen/Creatinine [Mass ratio] 30.3 mg/mg Normal [facility] Comment on above: Performed By: #### C MP, TSH ####[facility] [address] [place], [place] [address]Dr. Bethany Killian TSHon 01-02-2022 TSH 1.411 uIU/mL Normal 0.358-3.740 [facility] Comment on above: Performed By: #### C MP, TSH ####[facility] [address] [address]Dr. Bethany Killian UA RANDOM W/MICROSCOPICon BACTERIA NONE SEEN Normal NONE SEEN [facility] Comment on above: Performed By: #### U AMIC #### [facility] [address] [address] [address] Bethany Killian Bilirubin Ql (U) Negative Normal NEGATIVE [facility] Comment on above: Performed By: #### U AMIC #### [facility] [address] [address] [address] Bethany Killian CAST NONE SEEN Normal NONE SEEN [facility] [place] [facility] Comment on above: Performed By: #### U AMIC #### [facility] [address] [address] [address] Bethany Killian Clarity (U) CLEAR Normal CLEAR [facility] Comment on above: Performed By: #### U AMIC #### [facility] [address] [address] [address] Bethany Killian Color (U) LT. YELLOW Normal YELLOW [facility] Comment on above: Performed By: #### U AMIC #### [facility] [address] [address] [address] Bethany Killian Crystals LM Nom (Urine sed) NONE SEEN Normal NONE SEEN [facility] [place] [facility] Comment on above: Performed By: #### U AMIC #### [facility] [address] [address] [address] Bethany Killian Epithelial cells LM Ql (Urine sed) NONE SEEN Normal NONE SEEN /RARE [facility] Comment on above: Performed By: #### U AMIC #### [facility] [address] [address] [address] Bethany Killian Glucose Ql (U) Negative Normal NEGATIVE [facility] Comment on above: Performed By: #### U AMIC #### [facility] [address] [address] [address] Bethany Killian Hemoglobin Ql (U) Negative Normal NEGATIVE [facility] Comment on above: Performed By: #### U AMIC #### [facility] [address] [address] [address] Bethany Killian Ketones Ql (U) Negative Normal NEGATIVE [facility] Comment on above: Performed By: #### U AMIC #### [facility] [address] [place] [address] Dr. Bethany Killian LEUKOCYTES Negative Normal NEGATIVE [facility] Comment on above: Performed By: #### U AMIC #### [facility] [address] [place] [address] Dr. Bethany Killian MUCOUS NONE SEEN Normal NONE SEEN [facility] Comment on above: Performed By: #### U AMIC #### [facility] [address] [place] [address] Dr. Bethany Killian Nitrite Ql (U) Negative Normal NEGATIVE [facility] Comment on above: Performed By: #### U AMIC #### [facility] [address] [place] [address] Dr. Bethany Killian pH (U) 6.5 [pH] Normal 5-9 [facility] Comment on above: Performed By: #### U AMIC #### [facility] [address] [place] [address] Dr. Bethany Killian RBC 0-2 Normal 0-2 [facility] Comment on above: Performed By: #### U AMIC #### [facility] [address] [place] [address] Dr. Bethany Killian SPEC GRAVITY 1.020 Normal 1.005-<=1.025 [facility] Comment on above: Performed By: #### U AMIC #### [facility] [address] [place] [address] Dr. Bethany Killian UA PROTEIN Negative Normal NEGATIVE/ TRACE [facility] Comment on above: Performed By: #### U AMIC #### [facility] [address] [place] [address] Dr. Bethany Killian Urobilinogen Qn (U) 0.2 {Ian'U}/dL Normal 0.2 - 1. 0 [facility] [place] [facility] Comment on above: Performed By: #### U AMIC #### [facility] [address] [place] [address] Dr. Bethany Killian WBC 0-2 Abnormal NONE SEEN [facility] Comment on above: Performed By: #### U [facility] #### [facility] [address] [address] [address] Bethany Killian US CAROTID ART BILon 022 US CAROTID ART MASTER EXAMINATION: US CAROTID ART MASTER HISTORY: Left carotid artery occlusion COMPARISON: No relevant comparison available. TECHNIQUE: Duplex Doppler ultrasound analysis of carotid and vertebral arteries. . Bilateral carotid arterial duplex examination was performed using B-mode, color flow and spectral analysis. Carotid stenosis is reported according to validated velocity parameters, similar to NASCET criteria. FINDINGS: RIGHT CAROTID ARTERY Mild atherosclerotic plaque Subclavian: PSV: 290.9 cm/s cm/s EDV: 0.0 cm/s cm/s CCA: Prox: PSV: 85.4 cm/s cm/s EDV: 19.2 cm/s cm/s Mid: PSV: 60.3 cm/s cm/s EDV: 16.3 cm/s cm/s Distal: PSV: 68.1 cm/s cm/s EDV: 18.9 cm/s cm/s BULB: PSV: 49.0 cm/s cm/s EDV: 14.1 cm/s cm/s ICA: Prox: PSV: 70.7 cm/s cm/s EDV: 18.9 cm/s cm/s Mid: PSV: 79.7 cm/s cm/s EDV: 24.1 cm/s cm/s Distal: PSV: 96.5 cm/s cm/s EDV: 31.8 cm/s cm/s ECA: PSV: 174.2 cm/s cm/s EDV: 10.0 cm/s cm/s VERTEBRAL: PSV: 55.1 cm/s cm/s EDV: 20.2 cm/s cm/s ICA/CCA ratio: PSV: 1.4 EDV: 1.7 LEFT CAROTID ARTERY Mild atherosclerotic plaque Subclavian: PSV: 136.8 cm/s cm/s EDV: 0.0 cm/s CCA: Prox: PSV: 78.4 cm/s cm/s EDV: 20.2 cm/s Mid: PSV: 74.5 cm/s cm/s EDV: 22.8 cm/s Distal: PSV: 84.9 cm/s cm/s EDV: 25.4 cm/s BULB: PSV: 71.9 cm/s cm/s EDV: 20.2 cm/s ICA: Prox: PSV: 88.7 cm/s cm/s EDV: 17.6 cm/s Mid: PSV: 136.1 cm/s cm/s EDV: 43.2 cm/s Distal: PSV: 108.2 cm/s cm/s EDV: 31.6 cm/s ECA: PSV: 103.5 cm/s cm/s EDV: 10.7 cm/s VERTEBRAL: PSV: 78.5 cm/s cm/s EDV: 22.0 cm/s ICA/CCA ratio: PSV: 1.6 EDV: 1.7 IMPRESSION: 0-49% flow stenosis in the internal carotid arteries Spectral Doppler US Thresholds (Reference: Christen EG, et al. Radiology 2000; 214:247-252) Stenosis (%) PSV (cm/sec) VICA/VCCA 0-49 <150 <2.5 50-69 150-225 2.5-4.0 >70 >225 >4.0 Electronically authenticated by: SAVAGE OATES Date: 2021-11-01 07:08 Normal [facility] [place]: SUNNI JACKSON LOCATION: [facility] BILL#: [id number] : 42 AGE: SEX: M ORDERED BY: DARNELL PELLETIER: [facility] [place]LECTED: 10/19/16 00:00ANTIBIOTICS AT [place]OR[place].: RECEIVED : 10/19/16 21:47SITE: R E S U L T S FUNGAL SMEAR FINAL 10/20/16 10:08 FLUORESCENT FUNGAL STAIN: NEGATIVE FUNGAL CULTURE/, [facility] [place] 11/06/16 10:46 NO FUNGI ISOLATED. Normal [facility] MISCELLANEOUS CULT./SM.BACT. on 10-19-2016 MISCELLANEOUS CULT./SM.BACT. PATIENT: SUNNI JACKSON LOCATION: [address] [place] [address]#: [id number] : 42 AGE: SEX: M ORDERED BY: DARNELL PELLETIER: IV[facility] COLLECTED: 10/19/16 00:00ANTIBIOTICS AT [place]ORNA.: RECEIVED : 10/19/16 22:24SITE: R E S U L T S GRAM STAIN FINAL 10/20/16 00:59 NO GRANULOCYTES OR ORGANISMS SEEN. MISCELLANEOUS CULT./SM.BACT. FINAL 10/22/16 11:43 2+ MIXED SKIN PAVITHRA Normal [facility] Encounters Encounter Date Encounter Type Care Provider Facility Start: 04-03-2023 End: 04-03-2023 ambulatory KATARINA RAMEY Not Available Start: 03-26-2023 End: 03-26-2023 ambulatory DELMY MENA Not Available Start: 07-25-2022 End: 07-26-2022 ambulatory VENITA RAMEY Facility:[facility] Start: 07-20-2022 End: 07-21-2022 ambulatory VENITA RAMEY Facility:[facility] Start: 06-11-2022 End: 06-11-[address] BART AL Facility:[facility] Start: 05-24-2022 End: 05-25-[address] SAVAGE OATES Facility:[facility] Start: 03-16-2022 End: 03-17-2022 ambulatory VENITA RAMEY Facility:[facility] Start: 02-24-2022 End: 02-25-2022 ambulatory VENITA RAMEY Facility:[facility] Start: 01-02-2022 End: 01-03-2022 ambulatory VENITA RAMEY Facility:[facility] Start: 10-29-2021 End: 10-30-[address] SAVAGE OATES Facility:[facility] Procedures Date Procedure Procedure Detail Performing Clinician Start: 01-02-2022 PSA screening VENITA RAMEY Comment on above: Performed By: #### F T4, PSASC ####[id number] [place], [place] [address]RuBhavin Killian Payers Date Payer Category Payer Medicare [id number] 1958 Unknown [id number] 1940 Unknown [id number] 2.16.84 [id number] 1940 Unknown [id number] 2.16.84 [id number] 1941 Unknown [id number] 2.16.84 [id number] 1941 Unknown [id number] 2.16.84 [id number] 1941 Unknown [id number] 2.16.84 [id number] 1941 Unknown [id number] 2.16.84 [id number] 1941 Unknown [id number] 2.16.84 [id number] 1941 Unknown [id number] 2.16.84 [id number] 1941 Unknown [id number] 2.16.84 [id number] 1941 Unknown [id number] 2.16.84 [id number] Summary Purpose Family History No Family History Records FoundNo Family History Records FoundNo Family History Records Found Advance Directives No Advanced Directives Records FoundNo Advanced Directives Records FoundNo Advanced Directives Records Found Additional Source Comments (unrecognized sect ion and content) No Status Records FoundNo Status Records FoundNo Status Records Found INFORMATION SOURCE (unrecogn ized section and content) DATE CREATED AUTHOR 08/22/2017 [facility] DATE CREATED AUTHOR AUTHOR'S ORGANIZ ATION 08/04/2022 [facility] DATE CREATED AUTHOR AUTHOR'S ORGANIZ ATION 04/04/2023 [facility] EPIC FOR RECORDS PERTAINING TO PATIENTS WHO ARE OR HAVE BEEN ENROLLED IN A CHEMICAL DEPENDENCY/SUBSTANCEABUSE PROGRAM, SOME INFORMATION MAY BE OMITTED. This clinical summary was aggregated from multiple sources. Caution should be exercised in using it in the provision of clinical care. This summary normalizes information from multiple sources, and as a consequence, information in this document may materially change the coding, format and clinical context of patient data. In addition, data may be omitted in some cases. CLINICAL DECISIONS SHOULD BE BASED ON THE PRIMARY CLINICAL RECORDS. [facility] [employer] [facility]. provides no warranty or guarantee of the accuracy or completeness of information in this document.
[2023-04-10 09:23] LABS: Basophils Absolute Auto 0.1 10^3/uL (0.0-0.1); Basophils Percent Auto 0.5 % (0.2-2.0); Eosinophils Absolute Auto 0.2 10^3/uL (0.0-0.7); Eosinophils Percent Auto 1.7 % (0.9-7.0); Hematocrit 37.2 % (42.0-54.0); Immature Granulocytes Abs Auto 0.25 10^3/uL (0.00-0.03); Immature Granulocytes Pct Auto 2.1 % (0.0-0.5); Lymphocytes Absolute Auto 2.5 10^3/uL (1.2-3.8); Lymphocytes Percent Auto 20.7 % (20.5-60.0); Mean Corpuscular HGB Conc 32.3 g/dL (29.9-35.2); Mean Corpuscular Hemoglobin 29.9 pg (25.9-34.0); Mean Corpuscular Volume 92.5 fL (80.0-94.0); Mean Platelet Volume 11.1 fL (9.5-13.5); Monocytes Percent Auto 8.6 % (1.7-12.0); Neutrophils Absolute Auto 7.8 10^3/uL (1.4-6.5); Neutrophils Percent Auto 66.4 % (43.0-75.0); Platelet Count 236 10^3/uL (150-450); Red Blood Count 4.02 10^6/uL (4.70-6.10); Red Cell Distribution Width 14.9 % (11.0-15.0); White Blood Count 11.8 10^3/uL (4.0-11.0)
[2023-04-10 10:18] LABS: Bilirubin Urine NEGATIVE (NEGATIVE); Blood Urine NEGATIVE (NEGATIVE); Clarity Urine CLEAR (CLEAR); Color Urine LT. YELLOW (YELLOW); Glucose Urine UA NEGATIVE (NEGATIVE); Ketones Urine NEGATIVE (NEGATIVE); Leukocyte Esterase Urine NEGATIVE (NEGATIVE); Nitrite Urine NEGATIVE (NEGATIVE); Protein Urine NEGATIVE (NEG/TRACE); Specific Gravity Urine >=1.030 (1.005-1.025); Urobilinogen Urine 0.2 EU/dL (0.2-1.0)
[2023-04-10 10:21] LABS: Urine Microscopic Indicated NO
[2023-04-10 10:24] LABS: Creatinine Urine Random 110.08 mg/dL (20.00-300.00); Microalbum Creatinine Ratio Ur 11.8 mg/g (0.0-29.9); Microalbumin Urine Random <1.3 mg/dL (<=30.0)
[2023-04-10 10:38] LABS: Alanine Aminotransferase 19 U/L (16-63); Albumin Globulin Ratio 0.8; Albumin Level 2.7 g/dL (3.4-5.0); Alkaline Phosphatase 83 U/L (46-116); Anion Gap 9.8; Aspartate Amino Transferase 9 U/L (15-37); BUN Creatinine Ratio 29.2; Bilirubin Total 0.3 mg/dL (0.2-1.0); Calcium 8.1 mg/dL (8.5-10.1); Carbon Dioxide 28.3 mmol/L (21.0-32.0); Chloride 108 mmol/L (98-107); Chol HDL Ratio 3.2; Cholesterol 204 mg/dL (<=200); Estimated GFR (African America >60 (>=60); Estimated GFR (Non-African Ame >60 (>=60); Globulin 3.3 g/dL; Glucose 87 mg/dL (74-106); HDL Cholesterol 64 mg/dL (40-60); Potassium 4.1 mmol/L (3.5-5.1); Sodium 142 mmol/L (136-145); TSH W/ REFLEX FT4 1.809 uIU/mL (0.358-3.740); Triglycerides 50 mg/dL (<=150)
[2023-04-10 11:04] LABS: Prostate Specific Antigen Dx 0.37 ng/mL (<=4.00)
== END 2023-04-10 08:42 | disposition home or self-care (01) ==
LOC: LAB 08:43
PROVIDERS: PCP Nurse Practitioner; Visit Provider Nurse Practitioner
DX: E04.1 Nontoxic single thyroid nodule (principal); I10 Essential (primary) hypertension; E78.2 Mixed hyperlipidemia; Z12.5 Encounter for screening for malignant neoplasm of prostate
CPT/HCPCS: 36415; 80053; 80061; 81003; 82043; 82570; 84153; 84443; 85025

== ENCOUNTER 2023-05-04 09:11 | Outpatient (OUT) | payer MEDICARE, SELFPAY ==
--- OUTSIDE RECORDS SUMMARY | 2023-05-04 09:19 | XMS_ITS | CCD ---
Author Name Unknown Address [id number] [place] [address] Organization [facility] Care Team Providers Care Leaf Sticker Name Role Phone AICHHOLZ, COUNTY OR CITY AUDITOR DEVI Attending Unavailable AICHHOLZ, COUNTY OR CITY AUDITOR DEVI Consulting Unavailable AICHHOLZ, [place] OR CITY AUDITOR DEVI Primary Care Unavailable AICHHOLZ, COUNTY OR CITY AUDITOR DEVI Admitting Unavailable AICHHOLZ, COUNTY OR CITY AUDITOR DEVI Attending Unavailable AICHHOLZ, COUNTY OR CITY AUDITOR DEVI Consulting Unavailable AICHHOLZ, COUNTY OR CITY AUDITOR DEVI Primary Care Unavailable AICHHOLZ, COUNTY OR CITY AUDITOR DEVI Admitting Unavailable DR SAVAGE OATES V Consulting Unavailable ALINE, YULIYA Admitting Unavailable ALINE, YULIYA Attending Unavailable AICHHOLZ, [place] OR CITY AUDITOR DEVI Primary Care Unavailable ALINE, YULIYA Consulting Unavailable AICHHOLZ, COUNTY OR CITY AUDITOR DEVI Admitting Unavailable AICHHOLZ, COUNTY OR CITY AUDITOR DEVI Consulting Unavailable AICHHOLZ, COUNTY OR CITY AUDITOR DEVI Attending Unavailable AICHHOLZ, COUNTY OR CITY AUDITOR DEVI Primary Care Unavailable DR ARTEM MIRANDA Consulting Unavailable AICHHOLZ, COUNTY OR CITY AUDITOR DEVI Attending Unavailable AICHHOLZ, COUNTY OR CITY AUDITOR DEVI Consulting Unavailable AICHHOLZ, COUNTY OR CITY AUDITOR DEVI Primary Care Unavailable AICHHOLZ, COUNTY OR CITY AUDITOR DEVI Admitting Unavailable DR BART AL Admitting Unavailabl e SERVANDO, DR BART Craig Attending Unavailabl e SERVANDO, DR BART Craig Consulting Unavailabl e AICHHOLZ, [place] OR CITY AUDITOR DEVI Primary Care Unavailable CHRISTEN ARREDONDO Consulting Unavailable SOPHIE SLATER Consulting Unavailable GISELLE GORDILLO Consulting Unavailable DR SAVAGE OATES V Consulting Unavailable AICHHOLZ, COUNTY OR CITY AUDITOR DEVI Attending Unavailable AICHHOLZ, COUNTY OR CITY AUDITOR DEVI Primary Care Unavailable AICHHOLZ, COUNTY OR CITY AUDITOR DEVI Admitting Unavailable AICHHOLZ, COUNTY OR CITY AUDITOR DEVI Consulting Unavailable AICHHOLZ, COUNTY OR CITY AUDITOR DEVI Attending Unavailable AICHHOLZ, COUNTY OR CITY AUDITOR DEVI Consulting Unavailable AICHHOLZ, VENITA QUINONEZ Primary Care Unavailable FÁTIMADARIN, VENITA QUINONEZ Admitting [facility] Unavailable DELMY MENA Attending Unavailable DEVI MONTEIRO Attending Unavailable DEVI MONTEIRO Attending Unavailable Allergies Allergy Classification Reported Allergen(s) Allergy Type Date of Onset Reaction(s) Facility (1 source) Bacitracin / Neomycin / Polymyxin B Drug Allergy 4 [facility] (1 source) black walnut pollen extract Drug Allergy [facility] (1 source) Amoxicillin Drug Allergy 3 Nausea Only [facility] (1 source) Bacitracin Drug Allergy 3 [facility] (1 source) Bacitracin / Polymyxin B Drug Allergy 3 Swelling [facility] (1 source) HMG-CoA reductase inhibitor Drug Intolerance 1 [facility] (1 source) montelukast Drug Allergy 3 [facility] (1 source) Neomycin Drug Allergy 3 [facility] (1 source) Polymyxin B Drug Allergy 3 [facility] (1 source) Amoxicillin-Pot Clavulanate Drug Allergy 3 GI intolerance [facility] (1 source) Other Propensity to adverse reactions 9 [facility] Medications Current Medications Medication Drug Class(es) Dates Sig (Normalized) Sig (Original) [id number] 200 actuat albuterol 0.09 mg/actuat metered dose inhaler (1 source) beta2-Adrenergic Agonist Start: 04-03-19 24 End: 05-03-19 24 take 2 puff(s) by inhalation every six hours for wheezing albuterol HFA 90 mcg/act inhaler Indications: COPD exacerbation ([facility]) Inhale 2 puffs every 6 (six) hours if needed for wheezing 18 g 1 04/03/2023 05/03/2023 Active amLODIPine 5 mg oral tablet (1 source) Dihydropyridine Calcium Channel Usama amLODIPine (Norvasc) 5 MG tablet 1 (one) time each day at the same time. 0 Active ascorbic acid 113 mg / copper gluconate 0.4 mg / docosahexaenoic acid 87.5 mg / eicosapentaenoic acid 163 mg / lutein 2.5 mg / tocopherol acetate 100 unt / zeaxanthin 0.5 mg / zinc oxide 17.4 mg oral capsule (1 source) Vitamin C Multiple Vitamins-Minerals (PreserVision AREDS 2) capsule as directed Orally 0 Active aspirin 81 mg delayed release oral tablet (1 source) Platelet Aggregation Inhibitor, Nonsteroidal Anti-inflammatory Drug take 1 tablet by mouth in the morning aspirin 81 MG EC tablet Take 81 mg by mouth in the morning. 0 Active 120 actuat budesonide 0.16 mg/actuat / formoterol fumarate 0.0048 mg/actuat / glycopyrrolate 0.009 mg/actuat metered dose inhaler (1 source) Corticosteroid, beta2-Adrenergic Agonist take 2 puff(s) by mouth in the morning Yaokdaq-Xeferylickb-Fn rmoterol (Breztri Aerosphere) 160-9-4.8 MCG/ACT aerosol Indications: Chronic Obstructive Pulmonary Disease Inhale 2 puffs in the morning and 2 puffs before bedtime. Rinse mouth after use. 0 Active doxycycline hyclate 100 mg oral tablet (1 source) Tetracycline-class Drug Start: 04-03-19 24 End: 04-13-19 24 doxycycline (Vibra-Tabs) 100 MG tablet Indications: COPD exacerbation (CMS/HCC) Take 1 tablet (100 mg) by mouth in the morning and 1 tablet (100 mg) before bedtime. Do all this for 10 days. Take with a full glass of water and do not lie down for at least 30 minutes after.. 20 tablet 0 04/03/2023 04/13/2023 Active hydroCHLOROthiazide 25 mg oral tablet (1 source) Thiazide Diuretic Start: 10-03-19 23 take 0.5 tablet by mouth in the morning hydroCHLOROthiazide (HYDRODiuril) 25 MG tablet Indications: HTN (hypertension), benign (CMS/HCC) Take 0.5 tablets (12.5 mg) by mouth in the morning. 15 tablet 3 10/02/2022 Active lisinopril 40 mg oral tablet (1 source) Angiotensin Converting Enzyme Inhibitor take 1 tablet by mouth in the morning lisinopril 40 MG tablet Take 40 mg by mouth in the morning. 0 Active montelukast 10 mg oral tablet (1 source) Leukotriene Receptor Antagonist Start: 11-28-19 23 End: 11-27-19 24 take 1 tablet by mouth at bedtime montelukast (Singulair) 10 MG tablet Indications: Bronchiectasis with acute exacerbation (CMS/HCC) Take 1 tablet (10 mg) by mouth at bedtime. 30 tablet 11 11/27/2022 11/27/2023 Active piroxicam 10 mg oral capsule (1 source) Nonsteroidal Anti-inflammatory Drug Start: 12-26-19 23 End: 12-25-19 24 take 1 capsule by mouth in the morning piroxicam (Feldene) 10 MG capsule Indications: Degenerative disc disease, cervical , Cervical spinal stenosis Take 1 capsule (10 mg) by mouth in the morning. 30 capsule 11 12/25/2022 12/25/2023 Active predniSONE 20 mg oral tablet (1 source) Start: 04-03-19 24 End: 04-13-19 24 take 1 tablet by mouth in the morning predniSONE (Deltasone) 20 MG tablet Indications: COPD exacerbation (CMS/HCC) Take 1 tablet (20 mg) by mouth in the morning for 10 days. 10 tablet 0 04/03/2023 04/13/2023 Active thiamine 100 mg oral tablet (1 source) Start: 11-28-19 End: 11-27-19 24 take 1 tablet by mouth in the morning thiamine (Vitamin B-1) 100 MG tablet Indications: Numbness and tingling Take 1 tablet (100 mg) by mouth in the morning. 30 tablet 11 11/27/2022 11/27/2023 Active triamcinolone acetonide 0.055 mg/actuat metered dose nasal spray (1 source) Corticosteroid Start: 04-09-19 End: 05-09-19 24 take 2 spray(s) nasal route in the morning triamcinolone (Nasacort) 55 MCG/ACT nasal inhaler Indications: Chronic rhinitis Administer 2 sprays into each nostril in the morning. 16.5 g 5 04/09/2023 05/09/2023 Active Problems Active Problems Problem Classification Problem Date Documented Date Episodic/Chronic Chronic obstructive pulmonary disease and bronchiectasis (3 sources) Bronchiectasis; Translations: [Bronchiectasis, uncomplicated] Onset: 10-31-2022 10-31-2022 Chronic Disorders of lipid metabolism (2 sources) Mixed hyperlipidemia; Translations: [Mixed hyperlipidemia] Onset: 07-27-2020 Resolved: 10-31-2022 04-03-2023 Chronic E Codes: Fall (1 source) Fall (on)(from) sidewalk curb, initial encounter; Translations: [FALL ON FROM SIDEWALK CURB INITIAL] Onset: 06-13-2022 Episodic Esophageal disorders (1 source) Laryngopharyngeal reflux; Translations: [Gastro-esophageal reflux disease without esophagitis] Onset: 10-31-2022 10-31-2022 Chronic Occlusion or stenosis of precerebral arteries (5 sources) Occlusion and stenosis of left carotid artery; Translations: [Carotid artery stenosis] Onset: 08-23-2020 Chronic Other aftercare (1 source) ad terminal makeup operator (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) use of aspirin; Translations: [SENIOR LIVING CURRENT USE OF ASPIRIN] Onset: 06-13-2022 Episodic Other aftercare (1 source) Other emt intermediate (current) drug therapy; Translations: [OTH SENIOR LIVING CURRENT DRUG THERAPY] Onset: 06-13-2022 Episodic Other ear and sense organ disorders (1 source) Decreased hearing ; Translations: [Unspecified hearing loss, bilateral] Onset: 09-05-2022 09-05-2022 Chronic Other ear and sense organ disorders (1 source) Chronic left myringitis; 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, left ear] Onset: 10-31-2022 Resolved: 10-31-2022 10-31-2022 Chronic Other male genital disorders (1 source) Balanitis xerotica obliterans; 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] Onset: 12-09-2018 10-31-2022 Chronic Other nutritional; endocrine; and metabolic disorders (1 source) Overweight in adulthood with body mass index of 25 or more but less than 30; Translations: [Body mass index (BMI) 29.0-29.9, adult] Onset: 04-03-2023 04-03-2023 Episodic Other screening for suspected conditions (not mental disorders or infectious disease) (7 sources) Abnormal finding of blood chemistry, unspecified; Translations: [Encounter for screening for malignant neoplasm of prostate] Onset: 01-07-2022 Episodic Other upper respiratory disease (1 source) Chronic rhinitis; Translations: [Chronic rhinitis] Onset: 04-09-2023 04-09-2023 Chronic Spondylosis; intervertebral disc disorders; other back problems (1 source) Degeneration of cervical intervertebral disc; Translations: [Other cervical disc degeneration, unspecified cervical region] Onset: 12-12-2022 12-12-2022 Chronic Substance-related disorders (1 source) Nicotine dependence, cigarettes, uncomplicated; Translations: [NICOTINE DEPEND CIGARETTES UNCOMP] Onset: 06-13-2022 Chronic Superficial injury; contusion (4 sources) Contusion of other part of head, initial encounter; Translations: [Abrasion of other part of head, initial encounter] Onset: 06-11-2022 Episodic Thyroid disorders (6 sources) Nontoxic single thyroid nodule; Translations: [Thyroid nodule] Onset: 01-07-2022 Chronic Unclassified (3 sources) COUGH, UNSPECIFIED; Translations: [COUGH, UNSPECIFIED] Onset: 05-31-2022 Past or Other Problems Problem Classification Problem Date Documented Da te Episodic/Chronic Deficiency and other anemia (5 sources) Anemia, unspecified; Translations: [ANEMIA UNSPECIFIED] Onset: 01-07-2022 Episodic Essential hypertension (5 sources) Essential (primary) hypertension; Translations: [Essential hypertension] Onset: 07-27-2020 Resolved: 10-31-2022 Chronic Immunizations and screening for infectious disease (1 source) 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; Translations: [Other specified abnormal immunological findings in serum] Onset: 10-31-2022 10-31-2022 Episodic Malaise and fatigue (1 source) Asthenia; Translations: [Weakness] Onset: 10-03-2022 10-03-2022 Episodic Other connective tissue disease (1 source) Bilateral trochanteric bursitis; Translations: [Trochanteric bursitis, right hip] Onset: 11-28-2022 11-28-2022 Episodic Other ear and sense organ disorders (1 source) Mixed conductive AND sensorineural hearing loss; Translations: [Mixed conductive and sensorineural hearing loss, unspecified] Onset: 10-31-2022 Resolved: 10-31-2022 10-31-2022 Chronic Other ear and sense organ disorders (1 source) Sudden hearing loss; Translations: [Sudden idiopathic hearing loss, left ear] Onset: 10-31-2022 Resolved: 10-31-2022 10-31-2022 Episodic Other lower respiratory disease (1 source) Dyspnea; Translations: [Shortness of breath] Onset: 07-27-2020 Resolved: 10-31-2022 10-31-2022 Episodic Other nervous system disorders (1 source) Numbness and tingling sensation of skin; Translations: [Anesthesia of skin] Onset: 10-03-2022 10-03-2022 Episodic Otitis media and related conditions (2 sources) Dysfunction of eustachian tube; Translations: [Unspecified Eustachian tube disorder, unspecified ear] Onset: 09-05-2022 Resolved: 10-31-2022 09-05-2022 Episodic Peripheral and visceral atherosclerosis (1 source) Peripheral vascular disease; Translations: [Peripheral vascular disease, unspecified] Onset: 07-27-2020 Resolved: 10-31-2022 10-31-2022 Chronic Residual codes; unclassified (1 source) Other specified postprocedural states; Translations: [OTH SPECIFIED POSTPROCEDURAL STATES] Onset: 11-01-2021 Episodic Spondylosis; intervertebral disc disorders; other back problems (2 sources) Spinal stenosis in cervical region; Translations: [Spinal stenosis, cervical region] Onset: 09-05-2022 09-05-2022 Episodic Unclassified (1 source) COUGH, UNSPECIFIED; Translations: [COUGH, UNSPECIFIED] Onset: 05-24-2022 Results Test Name Value Interpretation Reference Range Facility ALL CBC WITH AUTO DIFFon BASOPHILS ABSOLUTE AUTO 0.1 [facility] Basophils/100 WBC (Bld) 0.5 % 0.2 - 2.0 % [facility] Eosinophils/100 WBC (Bld) 1.7 % 0.9 - 7.0 % [facility] Erythrocyte distribution width (RBC) [Ratio] 14.9 % 11.0 - 15.0 % [facility] Hematocrit (Bld) [Volume fraction] 37.2 % Low 42.0 - 54.0 % [facility] ([facility] [Mass/Vol] 12.0 g/dL Low 14.0 - 18.0 g/dL [facility] IMMATURE GRANULOCYTES ABS AUTO 0.25 High [facility] Immature granulocytes/100 WBC (Bld) 2.1 % High 0.0 - 0.5 % [facility] Interpretation and review of laboratory results Abnormal [facility] LYMPHOCYTES ABSOLUTE AUTO 2.5 [facility] Lymphocytes/100 WBC (Bld) 20.7 % 20.5 - 60.0 % [facility] MCH (RBC) [Entitic mass] 29.9 pg 25.9 - 34.0 pg [facility] MCHC (RBC) [Mass/Vol] 32.3 g/dL 29.9 - 35.2 g/dL [facility] MCV (RBC) [Entitic vol] 92.5 fL 80.0 - 94.0 fL [facility] MONOCYTES ABSOLUTE AUTO 1.0 High [facility] Monocytes/100 WBC (Bld) 8.6 % 1.7 - 12.0 % [facility] NEUTROPHILS ABSOLUTE AUTO 7.8 High [facility] Neutrophils/100 WBC (Bld) 66.4 % 43.0 - 75.0 % [facility] Platelet mean volume (Bld) [Entitic vol] 11.1 fL 9.5 - 13.5 fL [facility] Healthc are [facility] EO # 0.2 [facility] PLT 236 [facility] RBC 4.02 Low [facility] WBC 11.8 High [facility] e [facility] US THYROIDon 07-26-2022 US THYROID EXAMINATION: US [...] by: ARTEM MIRANDA Date: 2022-07-26 09:12 Normal [facility] PROF CHEM 8 (BAS METB)on Anion gap [Moles/Vol] 11.5 mmol/L Normal [facility] Comment on above: Performed By: #### B MP #### [facility] [address] [address] [address] Bethany Killian Calcium [Mass/Vol] 8.5 mg/dL Normal 8.5-10.1 [facility] Comment on above: Performed By: #### B MP #### [facility] [address] [address] [address] Bethany Killian Chloride [Moles/Vol] 109 mmol/L Critically high 98-107 [facility] Comment on above: Performed By: #### B MP #### [facility] [address] [address] [address] Bethany Killian CO2 [Moles/Vol] 26.2 mmol/L Normal 21.0-32.0 [facility] Comment on above: Performed By: #### B MP #### [facility] [address] [address] [address] Bethany Killian Creatinine [Mass/Vol] 1.06 mg/dL Normal 0.70-1.30 [facility] Comment on above: Performed By: #### B MP #### [facility] [address] [place] [address] Dr. Bethany Killian EGFR-AF TRISTANIAN >60 Normal >=60 [facility] Comment on above: Performed By: #### B MP #### [facility] [address] [address] [address] Bethany Killian EGFR-NON AF TRISTANIAN >60 Normal >=60 [facility] Comment on above: Performed By: #### B MP #### [facility] [address] [address] [address] Bethany Killian Glucose [Mass/Vol] 80 mg/dL Normal 74-106 [facility] Comment on above: Performed By: #### B MP #### [facility] [address] [address] [address] Bethany Killian Potassium [Moles/Vol] 4.7 mmol/L Normal 3.5-5.1 [facility] Comment on above: Performed By: #### B MP #### [facility] [address] [address] [address] Bethany Killian Sodium [Moles/Vol] 142 mmol/L Normal 136-145 [facility] Comment on above: Performed By: #### B MP #### [facility] [address] [address] [address] Bethany Killian Urea nitrogen [Mass/Vol] 26.0 mg/dL Critically high 7.0-18.0 [facility] Comment on above: Performed By: #### B MP #### [facility] [address] [address] [address] Bethany Killian Urea nitrogen/Creatinine [Mass ratio] 24.5 mg/mg Normal [facility] Comment on above: Performed By: #### B MP #### [facility] [address] [address] [address] CSPINE WO CONon [...] by: Lam GORDILLO Date: 2022-06-11 19:49 Normal [facility] CT HEAD WO CONon 06-11-2022 CT HEAD [...] CHRISTEN ARREDONDO Date: 2022-06-11 19:24 Normal [facility] XR CHEST 2 Von 05-25-2022 XR CHEST 2 V EXAMINATION: XR CHEST 2 V HISTORY: Cough COMPARISON: 04/04/2018 TECHNIQUE: [...] SAVAGE OATES Date: 2022-05-25 07:20 Normal [facility] PROF CHEM 8 (BAS METB)on Anion gap [Moles/Vol] 12.2 mmol/L Normal [facility] Comment on above: Performed By: #### B MP ####[facility] [address] [place], [place] [address]Dr. Bethany Killian Calcium [Mass/Vol] 8.7 mg/dL Normal 8.5-10.1 [facility] Comment on above: Performed By: #### B MP ####[facility] [address] [place], [place] [address]Dr. Bethany Killian Chloride [Moles/Vol] 106 mmol/L Normal 98-107 [facility] Comment on above: Performed By: #### B MP ####[facility] [address] [place], [place] [address]Dr. Bethany Killian CO2 [Moles/Vol] 26.0 mmol/L Normal 21.0-32.0 [facility] Comment on above: Performed By: #### B MP ####[facility] [address] [place], [place] [address]Dr. Bethany Killian Creatinine [Mass/Vol] 1.04 mg/dL Normal 0.70-1.30 [facility] Comment on above: Performed By: #### B MP ####[facility] [address] [place], [place] [address]Dr. Bethany Killian EGFR-AF TRISTANIAN >60 Normal >=60 [facility] Comment on above: Performed By: #### B MP ####[facility] [address] [place], [place] [address]DrBhavin Killian EGFR-NON AF TRISTANIAN >60 Normal >=60 [facility] Comment on above: Performed By: #### B MP ####[facility] [address] [id number] Killian Glucose [Mass/Vol] 85 mg/dL Normal 74-106 [facility] Comment on above: Performed By: #### B MP ####[facility] [address] [address]DrBhavin Killian Potassium [Moles/Vol] 4.2 mmol/L Normal 3.5-5.1 [facility] Comment on above: Performed By: #### B MP ####[facility] [address] [place], [place] [address]DrBhavin Killian Sodium [Moles/Vol] 140 mmol/L Normal 136-145 [facility] Comment on above: Performed By: #### B MP ####[facility] [address] [place], [place] [address]Dr. Bethany Killian Urea nitrogen [Mass/Vol] 29.0 mg/dL Critically high 7.0-18.0 [facility] Comment on above: Performed By: #### B MP ####[facility] [address] [place], [place] [address]DrBhavin Killian Urea nitrogen/Creatinine [Mass ratio] 27.9 mg/mg Normal [facility] Comment on above: Performed By: #### B MP ####[facility] [address] [place], [place] [address]Dr. Bethany Killian CBC AUTO DIFFon 02-24-2022 BASO # 0.0 103/ul Normal 0.0-0.1 [facility] Comment on above: Performed By: #### C BC #### [facility] [address] [place] [address] Dr. Bethany Killian Basophils/100 WBC (Bld) 0.3 % Normal 0.2-2.0 [facility] Comment on above: Performed By: #### C BC #### [facility] [address] [place] [address] Dr. Bethany Killian EO # 0.2 103/ul Normal 0.0-0.7 [facility] Comment on above: Performed By: #### C BC #### [facility] [address] [place] [address] Dr. Bethany Killian Eosinophils/100 WBC (Bld) 1.8 % Normal 0.9-7.0 [facility] Comment on above: Performed By: #### C BC #### [facility] [address] [place] [address] Dr. Bethany Killian Erythrocyte distribution width (RBC) [Ratio] 14.8 % Normal 11.0-15.0 [facility] Comment on above: Performed By: #### C BC #### [facility] [address] [place] [address] Dr. Bethany Killian Hematocrit (Bld) [Volume fraction] 38.3 % Critically low 42.0-54.0 [facility] Comment on above: Performed By: #### C BC #### [facility] [address] [place] [address] Dr. Bethany Killian Hemoglobin (Bld) [Mass/Vol] 12.6 g/dL Critically low 14.0-18.0 [facility] Comment on above: Performed By: #### C BC #### [facility] [address] [place] [address] Dr. Bethany Killian IG # 0.05 10e3/ul Critically high 0.00-0.03 [facility] Comment on above: Performed By: #### C BC #### [facility] [address] [place] [address] Dr. Bethany Killian IG % 0.6 % Critically high 0.0-0.5 [facility] Comment on above: Performed By: #### C BC #### [facility] [address] [place] [address] Dr. Bethany Killian LYMPH # 1.8 103/ul Normal 1.2-3.8 [facility] Comment on above: Performed By: #### C BC #### [facility] [address] [place] [address] Dr. Bethany Killian Lymphocytes/100 WBC (Bld) 20.2 % Critically low 20.5-60.0 [facility] Comment on above: Performed By: #### C BC #### [facility] [address] [place] [address] Dr. Bethany Killian MANUAL DIFF REQ NO Normal [facility] Comment on above: Performed By: #### C BC #### [facility] [address] [place] [address] Dr. Bethany Killian MCH (RBC) [Entitic mass] 29.9 pg Normal 25.9-34.0 [facility] Comment on above: Performed By: #### C BC #### [facility] [address] [place] [address] Dr. Bethany Killian MCHC (RBC) [Mass/Vol] 32.9 g/dL Normal 29.9-35.2 [facility] Comment on above: Performed By: #### C BC #### [facility] [address] [place] [address] Dr. Bethany Killian MCV (RBC) [Entitic vol] 90.8 fL Normal 80.0-94.0 [facility] Comment on above: Performed By: #### C BC #### [facility] [address] [place] [address] Dr. Bethany Killian MONO # 0.9 103/ul Critically high 0.3-0.8 [facility] Comment on above: Performed By: #### C BC #### [facility] [address] [place] [address] Dr. Bethany Killian Monocytes/100 WBC (Bld) 9.9 % Normal 1.7-12.0 [facility] Comment on above: Performed By: #### C BC #### [facility] [address] [place] [address] Dr. Bethany Killian NEUT # 5.9 103/ul Normal 1.4-6.5 [facility] Comment on above: Performed By: #### C BC #### [facility] [address] [place] [address] Dr. Bethany Killian Neutrophils/100 WBC (Bld) 67.2 % Normal 43.0-75.0 [facility] Comment on above: Performed By: #### C BC #### [facility] [address] [place] [address] Dr. Bethany Killian Platelet mean volume (Bld) [Entitic vol] 11.8 fL Normal 9.5-13.5 [facility] Comment on above: Performed By: #### C BC #### [facility] [address] [place] [address] Dr. Bethany Killian PLT 242 103/ul Normal 150-450 [facility] Comment on above: Performed By: #### C BC #### [facility] [address] [place] [address] Dr. Bethany Killian RBC 4.22 106/ul Critically low 4.70-6.10 [facility] Comment on above: Performed By: #### C BC #### [facility] [address] [place] [address] Dr. Bethany Killian WBC 8.8 103/ul Normal 4.0-11.0 [facility] Comment on above: Performed By: #### C BC #### [facility] [address] [place] [address] Dr. Bethany Killian FERRITINon 02-24-2022 Ferritin [Mass/Vol] 156.0 ng/mL Normal 26.0-388.0 [facility] Comment on above: Performed By: #### I BRAYAN FERR #### [facility] [address] [place] [address] Dr. Bethany Killian IRONon 02-24-2022 Iron [Mass/Vol] 99.0 ug/dL Normal 65.0-175.0 [facility] Comment on above: Performed By: #### I BRAYAN FERR #### [facility] [address] [place] [address] Dr. Bethany Killian PROF CHEM 8 (BAS METB)on Anion gap [Moles/Vol] 12.9 mmol/L Normal [facility] Comment on above: Result Comment: Prev iously reported as: 0.3 On 02/24/2022 13:42 By DM9 Performed By: #### B MP ####[facility] [address] [place] [address]Dr. Bethany Killian Calcium [Mass/Vol] 8.9 mg/dL Normal 8.5-10.1 [facility] Comment on above: Performed By: #### B MP ####[facility] [address] [place] [address]Dr. Bethany Killian Chloride [Moles/Vol] 102 mmol/L Normal 98-107 [facility] Comment on above: Result Comment: Prev iously reported as: 108 On 02/24/2022 13:42 By DM9 Performed By: #### B MP ####[facility] [address] [place], [place] [address]Dr. Bethany Killian CO2 [Moles/Vol] 27.4 mmol/L Normal 21.0-32.0 [facility] Comment on above: Result Comment: Prev iously reported as: 27.8 On 02/24/2022 13:42 By DM9 Performed By: #### B MP ####[facility] [address] [place], [place] [address]Dr. Bethany Killian Creatinine [Mass/Vol] 1.21 mg/dL Normal 0.70-1.30 [facility] Comment on above: Performed By: #### B MP ####[facility] [address] [place], [place] [address]Dr. Bethany Constantin EGFR-AF TRISTANIAN >60 Normal >=60 [facility] Comment on above: Performed By: #### B MP ####[facility] [address] [place], [place] [address]Dr. Felicitawalker Constantin EGFR-NON AF TRISTANIAN 58 mL/min/1.73m2 Critically low >=60 [facility] Comment on above: Performed By: #### B MP ####[facility] [address] [place], [place] [address]Dr. Felicitawalker Killian Glucose [Mass/Vol] 98 mg/dL Normal 74-106 [facility] Comment on above: Performed By: #### B MP ####[facility] [address] [place] [address]Dr. Bethany Killian Potassium [Moles/Vol] 4.3 mmol/L Normal 3.5-5.1 [facility] Comment on above: Result Comment: Prev iously reported as: 4.1 On 02/24/2022 13:42 By DM9 Performed By: #### B MP ####[facility] [address] [place], [place] [address]Dr. Bethany Killian Sodium [Moles/Vol] 138 mmol/L Normal 136-145 [facility] Comment on above: Result Comment: Prev iously reported as: 132 On 02/24/2022 13:42 By DM9 Performed By: #### B MP ####[facility] [address] [place], [place] [address]Dr. Bethany Killian Urea nitrogen [Mass/Vol] 37.0 mg/dL Critically high 7.0-18.0 [facility] Comment on above: Performed By: #### B MP ####[facility] [address] [place], [place] [address]Dr. Bethany Killian Urea nitrogen/Creatinine [Mass ratio] 30.6 mg/mg Normal [facility] Comment on above: Performed By: #### B MP ####[facility] [address] [place], [place] [address]Dr. Bethany Killian CBC AUTO DIFFon 01-02-2022 BASO # 0.0 103/ul Normal 0.0-0.1 [facility] Comment on above: Performed By: #### C BC #### [facility] [address] [place] [address] Dr. Bethany Killian Basophils/100 WBC (Bld) 0.5 % Normal 0.2-2.0 [facility] Comment on above: Performed By: #### C BC #### [facility] [address] [place] [address] Dr. Bethany Killian EO # 0.1 103/ul Normal 0.0-0.7 [facility] Comment on above: Performed By: #### C BC #### [facility] [address] [place] [address] Dr. Bethany Killian Eosinophils/100 WBC (Bld) 1.7 % Normal 0.9-7.0 [facility] Comment on above: Performed By: #### C BC #### [facility] [address] [place] [address] Dr. Bethany Killian Erythrocyte distribution width (RBC) [Ratio] 14.6 % Normal 11.0-15.0 [facility] Comment on above: Performed By: #### C BC #### [facility] [address] [place] [address] Dr. Bethany Killian Hematocrit (Bld) [Volume fraction] 37.8 % Critically low 42.0-54.0 [facility] Comment on above: Performed By: #### C BC #### [facility] [address] [place] [address] Dr. Bethany Killian Hemoglobin (Bld) [Mass/Vol] 12.0 g/dL Critically low 14.0-18.0 [facility] Comment on above: Performed By: #### C BC #### [facility] [address] [place] [address] Dr. Bethany Killian IG # 0.04 10e3/ul Critically high 0.00-0.03 [facility] Comment on above: Performed By: #### C BC #### [facility] [address] [place] [address] Dr. Bethany Killian IG % 0.5 % Normal 0.0-0.5 [facility] Comment on above: Performed By: #### C BC #### [facility] [address] [place] [address] Dr. Bethany Killian LYMPH # 1.2 103/ul Normal 1.2-3.8 [facility] Comment on above: Performed By: #### C BC #### [facility] [address] [place] [address] Dr. Bethany Killian Lymphocytes/100 WBC (Bld) 15.1 % Critically low 20.5-60.0 [facility] Comment on above: Performed By: #### C BC #### [facility] [address] [place] [address] Dr. Bethany Killian MANUAL DIFF REQ NO Normal [facility] Comment on above: Performed By: #### C BC #### [facility] [address] [place] [address] Dr. Bethany Killian MCH (RBC) [Entitic mass] 29.8 pg Normal 25.9-34.0 [facility] Comment on above: Performed By: #### C BC #### [facility] [address] [place] [address] Dr. Bethany Killian MCHC (RBC) [Mass/Vol] 31.7 g/dL Normal 29.9-35.2 [facility] Comment on above: Performed By: #### C BC #### [facility] [address] [place] [address] Dr. Bethany Killian MCV (RBC) [Entitic vol] 93.8 fL Normal 80.0-94.0 [facility] Comment on above: Performed By: #### C BC #### [facility] [address] [place] [address] Dr. Bethany Killian MONO # 0.8 103/ul Normal 0.3-0.8 [facility] Comment on above: Performed By: #### C BC #### [facility] [address] [place] [address] Dr. Bethany Killian Monocytes/100 WBC (Bld) 10.3 % Normal 1.7-12.0 [facility] Comment on above: Performed By: #### C BC #### [facility] [address] [place] [address] Dr. Bethany Killian NEUT # 5.8 103/ul Normal 1.4-6.5 [facility] Comment on above: Performed By: #### C BC #### [facility] [address] [place] [address] Dr. Bethany Killian Neutrophils/100 WBC (Bld) 71.9 % Normal 43.0-75.0 [facility] Comment on above: Performed By: #### C BC #### [facility] [address] [place] [address] Dr. Bethany Killian Platelet mean volume (Bld) [Entitic vol] 12.2 fL Normal 9.5-13.5 [facility] Comment on above: Performed By: #### C BC #### [facility] [address] [address] [address] Bethany Killian PLT 241 103/ul Normal 150-450 [facility] Comment on above: Performed By: #### C BC #### [facility] [address] [address] [address] Bethany Killian RBC 4.03 106/ul Critically low 4.70-6.10 [facility] Comment on above: Performed By: #### C BC #### [facility] [address] [address] [address] Bethany Killian WBC 8.1 103/ul Normal 4.0-11.0 [facility] Comment on above: Performed By: #### C BC #### [facility] [address] [address] [address] Bethany Killian FREE T4on 01-02-2022 Free T4 [Mass/Vol] 1.00 ng/dL Normal 0.76-1.46 [facility] Comment on above: Performed By: #### F T4, PSASC ####[facility] [address] [place] [address]Dr. Bethany Killian PROF 14(COMP METB)on 022 Albumin [Mass/Vol] 3.1 g/dL Critically low 3.4-5.0 [facility] Comment on above: Performed By: #### C MP, TSH ####[facility] [address] [place] [address]DrBhavin Killian Albumin/Globulin [Mass ratio] 0.9 {ratio} Normal [facility] Comment on above: Performed By: #### C MP, TSH ####[facility] [address] [place] [address]DrBhavin Killian ALP [Catalytic activity/Vol] 78 U/L Normal 46-116 [facility] Comment on above: Performed By: #### C MP, TSH ####[facility] [address] [place] [address]Dr. Bethany Killian ALT [Catalytic activity/Vol] 19 U/L Normal 16-63 [facility] Comment on above: Performed By: #### C MP, TSH ####[facility] [address] [place], [place] [address]Dr. Bethany Killian Anion gap [Moles/Vol] 9.0 mmol/L Normal [facility] Comment on above: Performed By: #### C MP, TSH ####[facility] [address] [place], [place] [address]Dr. Bethany Killian AST [Catalytic activity/Vol] 12 U/L Critically low 15-37 [facility] Comment on above: Performed By: #### C SALEEM, TSH ####[facility] [address] [place], [place] [address]Dr. Bethany Killian Bilirubin [Mass/Vol] 0.4 mg/dL Normal 0.2-1.0 [facility] Comment on above: Performed By: #### C SALEEM, TSH ####[facility] [address] [place], [place] [address]Dr. Bethany Killian Calcium [Mass/Vol] 8.6 mg/dL Normal 8.5-10.1 [facility] Comment on above: Performed By: #### C SALEEM, TSH ####[facility] [address] [place], [place] [address]Dr. Bethany Killian Chloride [Moles/Vol] 105 mmol/L Normal 98-107 [facility] Comment on above: Performed By: #### C MP, TSH ####[facility] [address] [place], [place] [address]Dr. Bethany Killian CO2 [Moles/Vol] 28.6 mmol/L Normal 21.0-32.0 [facility] Comment on above: Performed By: #### C MP, TSH ####[facility] [address] [place], [place] [address]Dr. Bethany Killian Creatinine [Mass/Vol] 0.99 mg/dL Normal 0.70-1.30 [facility] Comment on above: Performed By: #### C MP, TSH ####[facility] [address] [place] [id number]. Yilan Killian EGFR-AF TRISTANIAN >60 Normal >=60 [facility] Comment on above: Performed By: #### C MP, TSH ####[facility] [address] [place] [id number]. Yilan Killian EGFR-NON AF TRISTANIAN >60 Normal >=60 [facility] Comment on above: Performed By: #### C MP, TSH ####[facility] [address] [place] [id number]. Felicitalan Killian Globulin (S) [Mass/Vol] 3.5 g/dL Normal [facility] Comment on above: Performed By: #### C MP, TSH ####[facility] [address] [place] [address]Dr. Felicitalan Killian Glucose [Mass/Vol] 85 mg/dL Normal 74-106 [facility] Comment on above: Performed By: #### C MP, TSH ####[facility] [address] [place] [address]Dr. Felicitalan Killian Potassium [Moles/Vol] 4.6 mmol/L Normal 3.5-5.1 [facility] Comment on above: Performed By: #### C MP, TSH ####[facility] [address] [place] [id number]. Felicitalan Killian Protein [Mass/Vol] 6.6 g/dL Normal 6.4-8.2 [facility] Comment on above: Performed By: #### C MP, TSH ####[facility] [address] [place] [address]Dr. Felicitalan Killian Sodium [Moles/Vol] 138 mmol/L Normal 136-145 [facility] Comment on above: Performed By: #### C MP, TSH ####[facility] [address] [place] [address]Dr. Felicitalan Killian Urea nitrogen [Mass/Vol] 30.0 mg/dL Critically high 7.0-18.0 [facility] Comment on above: Performed By: #### C MP, TSH ####[facility] [address] [place] [id number]. Bethany Killian Urea nitrogen/Creatinine [Mass ratio] 30.3 mg/mg Normal [facility] Comment on above: Performed By: #### C MP, TSH ####[facility] [address] [place] [id number]. Bethany Killian TSHon 01-02-2022 TSH 1.411 uIU/mL Normal 0.358-3.740 [facility] Comment on above: Performed By: #### C MP, TSH ####[facility] [address] [place] [id number] Killian UA RANDOM W/MICROSCOPICon BACTERIA NONE SEEN Normal NONE SEEN [facility] Comment on above: Performed By: #### U AMIC #### [facility] [address] [place] [address] Dr. Bethany Killian Bilirubin Ql (U) Negative Normal NEGATIVE [facility] Comment on above: Performed By: #### U AMIC #### [facility] [address] [place] [address] Dr. Bethany Killian CAST NONE SEEN Normal NONE SEEN [facility] Comment on above: Performed By: #### U AMIC #### [facility] [address] [place] [address] Dr. Bethany iKllian Clarity (U) CLEAR Normal CLEAR [facility] Comment on above: Performed By: #### U AMIC #### [facility] [address] [address] [address] Bethany Killian Color (U) LT. YELLOW Normal YELLOW [facility] Comment on above: Performed By: #### U AMIC #### [facility] [address] [place] [address] Dr. Bethany Killian Crystals LM Nom (Urine sed) NONE SEEN Normal NONE SEEN [facility] Comment on above: Performed By: #### U AMIC #### [facility] [address] [place] [address] Dr. Bethany Killian Epithelial cells LM Ql (Urine sed) NONE SEEN Normal NONE SEEN /RARE [facility] Comment on above: Performed By: #### U AMIC #### [facility] [address] [address] [address] Bethany Killian Glucose Ql (U) Negative Normal NEGATIVE [facility] Comment on above: Performed By: #### U AMIC #### [facility] [address] [address] [address] Bethany Killian Hemoglobin Ql (U) Negative Normal NEGATIVE [facility] Comment on above: Performed By: #### U AMIC #### [facility] [address] [address] [address] Bethany Killian Ketones Ql (U) Negative Normal NEGATIVE [facility] Comment on above: Performed By: #### U AMIC #### [facility] [address] [address] [address] Bethany Killian LEUKOCYTES Negative Normal NEGATIVE [facility] Comment on above: Performed By: #### U AMIC #### [facility] [address] [address] [address] Bethany Killian MUCOUS NONE SEEN Normal NONE SEEN [facility] Comment on above: Performed By: #### U AMIC #### [facility] [address] [address] [address] Bethany Killian Nitrite Ql (U) Negative Normal NEGATIVE [facility] Comment on above: Performed By: #### U AMIC #### [facility] [address] [address] [address] Bethany Killian pH (U) 6.5 [pH] Normal 5-9 [facility] Comment on above: Performed By: #### U AMIC #### [facility] [address] [address] [address] Bethany Killian RBC 0-2 Normal 0-2 [facility] Comment on above: Performed By: #### U AMIC #### [facility] [address] [address] [address] Bethany Killian SPEC GRAVITY 1.020 Normal 1.005-<=1.025 [facility] Comment on above: Performed By: #### U AMIC #### [facility] [address] [address] [address] Bethany Killian UA PROTEIN Negative Normal NEGATIVE/ TRACE [facility] Comment on above: Performed By: #### U AMIC #### [facility] [address] [address] [address] Bethany Killian Urobilinogen Qn (U) 0.2 {Ian'U}/dL Normal 0.2 - 1. 0 [facility] Comment on above: Performed By: #### U AMIC #### [facility] [address] [address] [address] Bethany Killian WBC 0-2 Abnormal NONE SEEN [facility] Comment on above: Performed By: #### U AMIC #### [facility] [address] [address] [address] Bethany Killian US CAROTID ART BILon [...] by: SAVAGE OATES Date: 2021-11-01 07:08 Normal [facility] FUNGAL CULTURE/SM, MISCon FUNGAL CULTURE/SM, [facility] PATIENT: SUNNI JACKSON LOCATION: [address] BILL#: [id number] : 42 AGE: SEX: M ORDERED BY: DARNELL PELLETIER: MISC COLLECTED: 10/19/16 00:00ANTIBIOTICS AT [place].: RECEIVED : 10/19/16 21:47SITE: R E S U L T S FUNGAL SMEAR FINAL 10/20/16 10:08 FLUORESCENT FUNGAL STAIN: NEGATIVE FUNGAL CULTURE/, MISC FINAL 11/06/16 10:46 NO FUNGI ISOLATED. Normal [facility] MISCELLANEOUS CULT./SM.BACT. on 10-19-2016 MISCELLANEOUS CULT./SM.BACT. PATIENT: SUNNI JACKSON LOCATION: [facility] BILL#: [id number] : 42 AGE: SEX: M ORDERED BY: DARNELL PELLETIER: [facility] COLLECTED: 10/19/16 00:00ANTIBIOTICS AT [place].: RECEIVED : 10/19/16 22:24SITE: R E S U L T S GRAM STAIN FINAL 10/20/16 00:59 NO GRANULOCYTES OR ORGANISMS SEEN. MISCELLANEOUS CULT./SM.BACT. FINAL 10/22/16 11:43 2+ MIXED SKIN PAVITHRA Normal [facility] Encounters Encounter Date Encounter Type Care Provider Facility Start: 04-18-2023 End: 04-18-2023 ambulatory DEVI THANIA Not Available Start: 04-10-2023 Clinisync Result Encounter Devi Thania 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 Work Phone: [facility] Unsolicited Start: 04-10-2023 Clinisync Result Encounter Devi Thania 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 Work Phone: [facility] Unsolicited Start: 04-03-2023 End: 04-03-2023 ambulatory DEVI THANIA Not Available Start: 03-26-2023 End: 03-26-2023 ambulatory DELMY MENA Not Available Start: 07-25-2022 End: 07-26-2022 ambulatory [place] [facility] DEVI THANIA Facility:[facility] Start: 07-20-2022 End: 07-21-2022 ambulatory [place] [employer] DEVI THANIA Facility:[facility] Start: 06-11-2022 End: 06-11-[address] BART AL Facility:[facility] Start: 05-24-2022 End: 05-25-[address] SAVAGE OATES Facility:[facility] Start: 03-16-2022 End: 03-17-2022 ambulatory VENITA QUINONEZ FÁTIMAChuyDARIN Facility:[facility] Start: 02-24-2022 End: 02-25-2022 ambulatory VENITA QUINONEZ FÁTIMAChuyDARIN Facility:[facility] Start: 01-02-2022 End: 01-03-2022 ambulatory VENITA QUINONEZ THANIA Facility:[facility] Start: 10-29-2021 End: 10-30-[address] SAVAGE OATES Facility:[facility] Start: 07-27-2020 End: 10-31-2022 Patient encounter status 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 Work 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: [facility] Healthcare Procedures Date Procedure Procedure Detail Performing Clinician Start: 04-10-2023 ALL CBC WITH AUTO DIFF 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 Work Phone: Start: 01-02-2022 PSA screening VENITA QUINONEZ FÁTIMAChuyDARIN Comment on above: Performed By: #### F T4, PSASC ####[place] [id number] Killian Plan of Treatment Date Care Activity Detail Author Start: 05-03-2023 End: 05-03-2023 Patient encounter procedure 05/03/2023 9:15 AM EST Office Visit [facility] [address] [place] [address] Jovany Mdcaniel S, DO [address] [place] [address] [facility] Immunizations Immunization Date Immunization Notes Care Provider Fa cility 08-15-2022 Pneumococcal Conjuga te PCV 20 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 Work Phone: [facility] 12-26-2021 Influenza, High-dose Seasonal, Quadrivalent, Preservative Free 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 Work Phone: [facility] 12-21-2020 influenza, injectabl e, quadrivalent, preservative free Devi Aichholz 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 Work Phone: [facility] 12-01-2020 Influenza, Seasonal, Quadrivalent, Adjuvanted Devi Aichholz 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 Work Phone: [facility] 11-16-2019 influenza, high dose seasonal, preservative-free Devi Aichholz 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 Work Phone: [facility] 09-06-2019 hepatitis A vaccine, adult dosage Devi Aichholz 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 Work Phone: [facility] 07-04-2019 zoster vaccine recombinant L evelia Aichholz 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 Work Phone: [facility] 04-08-2019 zoster vaccine recombinant L evelia Aichholz 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 Work Phone: [facility] 02-17-2019 hepatitis A vaccine, adult dosage Devi Aichholz 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 Work Phone: [facility] 02-17-2019 tetanus toxoid, redu renan diphtheria toxoid, and acellular pertussis vaccine, adsorbed Devi Aichholz 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 Work Phone: [facility] 12-03-2018 Seasonal trivalent influenza vaccine, adjuvanted, preservative free Devi Aichholz 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 Work Phone: [facility] 08-14-2016 tetanus toxoid, redu renan diphtheria toxoid, and acellular pertussis vaccine, adsorbed Devi Aichholz 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 Work Phone: [facility] 12-13-2015 pneumococcal polysaccharide vaccine, 23 valent Devi Aichholz 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 Work Phone: [facility] 12-08-2015 influenza, injectabl e, quadrivalent, preservative free Devi Aichholz 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 Work Phone: [facility] 12-09-2014 influenza, injectabl e, quadrivalent, preservative free Devi Aichholz 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 Work Phone: [facility] 10-07-2014 pneumococcal conjuga te vaccine, 13 valent Devi Aichholz 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 Work Phone: [facility] 08-11-2014 pneumococcal conjuga te vaccine, 13 valvarun Quinonez Fátimachuydarin 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 Work Phone: [facility] Healthcare Payers Date Payer Category Payer Unknown AARP AARP [id number] 2022-Present [address] [place] [address] [id number] 2006 Medicare MEDICARE MEDICAR E PART B [id number] 2006-[place] [address] [place] [address] Medicare [id number] 1959 Medicare [id number] 1959 Unknown [id number] 1941 Unknown [id number] 1941 Unknown [id number] 1941 Unknown [id number] 1941 Unknown [id number] 1941 Unknown [id number] 1941 Unknown [id number] 1941 Unknown [id number] 1941 Unknown [id number] 1941 Unknown [id number] 1941 Unknown [id number] 1941 Unknown [id number] Social History Date Type Detail Facility Start: 09[facility]19[facility]2022 [facility] History of tobacco use Cigarette Smoker [facility] Start: 09-19-2022 End: 04-03-2023 Cigarettes smoked current (pack per day) - Reported 0.5 [facility] Start: 09-19-2022 Tobacco use and exposure Smoke less tobacco non-user [facility] Start: 03-26-2023 Alcohol intake Lifetime non-d jad (finding) [facility] Start: 03-26-2023 End: 04-03-2023 Tobacco use panel [facility] Start: 09-19-2022 Tobacco Comment 11-20 cigarettes/day [facility] Start: 09-19-2022 Alcohol Comment Caffeine 3-4 cups pe r day [facility] Start: 1940 Sex Assigned At Male [facility] Start: 08-30-2022 Gender identity Identifies as male gender (finding) [facility] Summary Purpose Family History No Family History Records FoundNo Family History Records FoundNo Family History Records Found Advance Directives No Advanced Directives Records FoundNo Advanced Directives Records FoundNo Advanced Directives Records Found Additional Source Comments (unrecognized sect ion and content) No Status Records FoundNo Status Records FoundNo Status Records Found INFORMATION SOURCE (unrecogn ized section and content) DATE CREATED AUTHOR 08/22/2017 [facility] DATE CREATED AUTHOR AUTHOR'S ORGANIZ ATION 08/04/2022 [facility] DATE CREATED AUTHOR AUTHOR'S ORGANIZ ATION 04/26/2023 [facility] EPIC Care Teams (unrecognized sec tion and content) Leaf Sticker Relationship Specialty Start Date End Date 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 NP [address] [facility] [place] [address] Nurse Practitioner Family Medicine 02/26/22 FOR RECORDS PERTAINING TO PATIENTS WHO ARE [...] BE BASED ON THE PRIMARY CLINICAL RECORDS. [facility] provides no warranty or guarantee of the accuracy or completeness of information in this document.
[2023-05-04 11:17] LABS: Alanine Aminotransferase 21 U/L (16-63); Albumin Globulin Ratio 0.8; Albumin Level 2.8 g/dL (3.4-5.0); Alkaline Phosphatase 83 U/L (46-116); Aspartate Amino Transferase 12 U/L (15-37); BUN Creatinine Ratio 22.7; Bilirubin Total 0.4 mg/dL (0.2-1.0); Calcium 8.5 mg/dL (8.5-10.1); Chloride 102 mmol/L (98-107); Estimated GFR (African America >60 (>=60); Estimated GFR (Non-African Ame 59 (>=60); Globulin 3.7 g/dL; Glucose 87 mg/dL (74-106); Sodium 136 mmol/L (136-145); Total Protein 6.5 g/dL (6.4-8.2)
== END 2023-05-04 09:12 | disposition home or self-care (01) ==
LOC: LAB 09:12
PROVIDERS: PCP Nurse Practitioner; Visit Provider Nurse Practitioner
DX: E83.51 Hypocalcemia (principal)
CPT/HCPCS: 36415; 80053; 82306

== ENCOUNTER 2023-05-18 09:17 | Outpatient (OUT) | payer MEDICARE, SELFPAY ==
--- NOTE | 2023-05-18 09:21 | MR_ITS ---
The [address] [address] Patient Name: SUNNI JACKSON MRN: [facility]:[id number] date: 1940 Sex: M Assigned Patient Location: MRI Current Patient Location: MRI Accession/Order Number: [id number] Exam Date: 05/18/2023 09:35 Report Date: 05/18/2023 12:26 At the request of: KATARINA RAMEY Procedure: MR cervical spine wo con EXAM: MR cervical spine wo con REASON FOR EXAM: Cervical Spinal Stenosis. TECHNIQUE: Multiplanar, multisequence imaging of the cervical spine was performed without contrast COMPARISON: CT scan 06/11/2022. FINDINGS: Study mildly dated by motion. Limited evaluation the posterior fossa is without acute or suspicious abnormality. Mild low-lying cerebellar tonsils. The visualized spinal cord demonstrates normal caliber. Signal abnormality within the spinal cord at the C4-C5 and C5-C6 level with overlying stenosis favors to represent myelomalacia. Unchanged alignment of the cervical spine. Unchanged mild anterolisthesis of C3-C4. Vertebral body heights and facet alignments are maintained. No acute or aggressive osseous abnormality identified. Limited evaluation of the paravertebral soft tissues is unremarkable. C2-C3: No focal disc herniation identified. No severe spinal canal stenosis. Mild bilateral neural foraminal stenosis secondary to uncovertebral degeneration and facet arthropathy. C3-C4: Broad-based disc bulge without severe spinal canal stenosis. Moderate bilateral neural foraminal stenosis, right greater than left secondary to disc osteophyte complex, uncovertebral degeneration and facet arthropathy. C4-C5: Diffuse broad-based disc bulge with severe spinal canal stenosis. Severe bilateral neural foraminal stenosis secondary to disc osteophyte complex, uncovertebral degeneration and facet arthropathy. C5-C6: Broad-based disc bulge with severe spinal canal stenosis. Severe bilateral neural foraminal stenosis secondary to disc osteophyte complex, uncovertebral degeneration and facet arthropathy. C6-C7: Broad-based disc bulge with moderate spinal canal stenosis. Moderate to severe bilateral neural foraminal stenosis secondary to disc osteophyte complex, uncovertebral degeneration and facet arthropathy. C7-T1: No focal disc herniation identified. No significant spinal canal stenosis. Mild to moderate bilateral neural foraminal stenosis, right greater than left secondary to uncovertebral degeneration and facet arthropathy. MR/MR cervical spine wo con IMPRESSION: 1. Moderate to severe multilevel degenerative disc disease and facet arthropathy, most significant at the C4-C5 through C6-C7 levels as described above. 2. 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 Electronically authenticated by: AYSE FRIEDMAN Date: 05/18/2023 12:26
--- OUTSIDE RECORDS SUMMARY | 2023-05-18 09:21 | XMS_ITS | CCD ---
Author Organization [facility] Care Team Providers Care Stations Superintendent Name Role Phone AICHHOLZ, WIRE WHEELER DEVI Attending Unavailable AICHHOLZ, WIRE WHEELER DEVI Consulting Unavailable AICHHOLZ, WIRE WHEELER DEVI Primary Care Unavailable AICHHOLZ, WIRE WHEELER DEVI Admitting Unavailable AICHHOLZ, WIRE WHEELER DEVI Attending Unavailable AICHHOLZ, WIRE WHEELER DEVI Consulting Unavailable AICHHOLZ, WIRE WHEELER DEVI Primary Care Unavailable AICHHOLZ, WIRE WHEELER DEVI Admitting Unavailable DR SAVAGE OATES V Consulting Unavailable ALINE, YULIYA Admitting Unavailable YULIYA MIRELES Attending Unavailable AICHHOLZ, WIRE WHEELER DEVI Primary Care Unavailable ALINE, YULIYA Consulting Unavailable AICHHOLZ, WIRE WHEELER DEVI Admitting Unavailable AICHHOLZ, WIRE WHEELER DEVI Consulting Unavailable AICHHOLZ, WIRE WHEELER DEVI Attending Unavailable AICHHOLZ, WIRE WHEELER DEVI Primary Care Unavailable DR ARTEM MIRANDA Consulting Unavailable AICHHOLZ, WIRE WHEELER DEVI Attending Unavailable AICHHOLZ, WIRE WHEELER DEVI Consulting Unavailable AICHHOLZ, WIRE WHEELER DEVI Primary Care Unavailable AICHHOLZ, WIRE WHEELER DEVI Admitting Unavailable DR BART AL Admitting Unavailabl e SERVANDO, DR BART Craig Attending Unavailabl e REINANAMARIA, DR BART Craig Consulting Unavailabl e AICHHOLZ, WIRE WHEELER DEVI Primary Care Unavailable CHRISTEN ARREDONDO Consulting Unavailable SOPHIE SLATER Consulting Unavailable GISELLE GORDILLO Consulting Unavailable DR SAVAGE OATES V Consulting Unavailable AICHHOLZ, WIRE WHEELER DEVI Attending Unavailable AICHHOLZ, WIRE WHEELER DEVI Primary Care Unavailable AICHHOLZ, WIRE WHEELER DEVI Admitting Unavailable AICHHOLZ, WIRE WHEELER DEVI Consulting Unavailable AICHHOLZ, WIRE WHEELER DEVI Attending Unavailable AICHHOLZ, WIRE WHEELER DEVI Consulting Unavailable AICHHOLZ, WIRE WHEELER DEVI Primary Care Unavailable AICHHOLZ, WIRE WHEELER DEVI Admitting Unavailable Aichholz Jessica ORTEGAa Unavailable DELMY MENA Attending Unavailable DEVI MONTEIRO Attending Unavailable DEVI MONTEIRO Attending Unavailable JOVANY OVALLE Attending Unavailable DEVI MONTEIRO Attending Unavailable Allergies Allergy Classification Reported Allergen(s) Allergy Type Date of Onset Reaction(s) Facility (1 source) Bacitracin / Neomycin / Polymyxin B Drug Allergy 4 [facility] Repository (1 source) black walnut pollen extract Drug Allergy [facility]ository (1 source) Amoxicillin Drug Allergy 3 Nausea Only [facility] (1 source) Bacitracin Drug Allergy 3 [facility] (1 source) Bacitracin / Polymyxin B Drug Allergy 3 Swelling [facility] (1 source) HMG-CoA reductase inhibitor Drug Intolerance 1 [facility] (1 source) montelukast Drug Allergy 3 [facility] (1 source) Neomycin Drug Allergy 3 [facility] (1 source) Polymyxin B Drug Allergy 3 [facility] (1 source) Amoxicillin-Pot Clavulanate Drug Allergy 3 GI intolerance [facility] (1 source) Other Propensity to adverse reactions 9 [facility] Medications Current Medications Medication Drug Class(es) Dates Sig (Normalized) Sig (Original) [id number] actuat albuterol 0.09 mg/actuat metered dose inhaler (1 source) beta2-Adrenergic Agonist Start: 04-03-19 24 End: 05-03-19 24 take 2 puff(s) by inhalation every six hours for wheezing albuterol HFA 90 mcg/act inhaler Indications: COPD exacerbation ([facility]) Inhale 2 puffs every 6 (six) hours [...] 2 puff(s) by mouth in the morning Yolrkzn-Okxnwinvpka-Um rmoterol (Breztri Aerosphere) 160-9-4.8 MCG/ACT aerosol Indications: [...] (1 source) Nonsteroidal Anti-inflammatory Drug Start: 12-26-19 End: 12-25-19 24 take 1 capsule by mouth in the morning piroxicam (Feldene) 10 MG capsule Indications: Degenerative disc disease, cervical , Cervical spinal stenosis Take 1 capsule (10 mg) by mouth in the morning. 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] Onset: 06-13-2022 Episodic Other [...] and screening for infectious disease (1 source) [employer] OFFICER antibody positive; Translations: [Other specified abnormal immunological [...] WITH AUTO DIFFon BASOPHILS ABSOLUTE AUTO 0.1 [facility] Basophils/100 WBC (Bld) 0.5 % 0.2 - 2.0 % [facility] Eosinophils/100 WBC (Bld) 1.7 % 0.9 - 7.0 % [facility] Erythrocyte distribution width (RBC) [Ratio] 14.9 % 11.0 - 15.0 % [facility] Hematocrit (Bld) [Volume fraction] 37.2 % Low 42.0 - 54.0 % [facility] [Mass/Vol] 12.0 g/dL Low 14.0 - 18.0 g/dL [facility] IMMATURE GRANULOCYTES ABS AUTO 0.25 High [facility] Immature granulocytes/100 WBC (Bld) 2.1 % High 0.0 - 0.5 % [facility] Interpretation and review of laboratory results Abnormal [facility] LYMPHOCYTES ABSOLUTE AUTO 2.5 [facility] Lymphocytes/100 WBC (Bld) 20.7 % 20.5 - 60.0 % [facility] MCH (RBC) [Entitic mass] 29.9 pg 25.9 - 34.0 pg [facility] MCHC (RBC) [Mass/Vol] 32.3 g/dL 29.9 - 35.2 g/dL [facility] MCV (RBC) [Entitic vol] 92.5 fL 80.0 - 94.0 fL [facility] MONOCYTES ABSOLUTE AUTO 1.0 High [facility] Monocytes/100 WBC (Bld) 8.6 % 1.7 - 12.0 % [facility] NEUTROPHILS ABSOLUTE AUTO 7.8 High [facility] Neutrophils/100 WBC (Bld) 66.4 % 43.0 - 75.0 % [facility] Platelet mean volume (Bld) [Entitic vol] 11.1 [...] ARTEM MIRANDA Date: 2022-07-26 09:12 Normal [facility] PROF CHEM 8 (BAS METB)on Anion gap [Moles/Vol] 11.5 mmol/L Normal [facility] Comment on above: Performed By: #### B MP #### [facility] [address] [address] [address] Bethany Killian Calcium [Mass/Vol] 8.5 mg/dL Normal 8.5-10.[address] [facility] Comment on above: Performed By: #### B MP #### [facility] [address] [address] [address] Bethany Killian Chloride [Moles/Vol] 109 mmol/L Critically high 98-107 [facility] Comment on above: Performed By: #### B MP #### [facility] [address] [address] [address] Bethany Killian CO2 [Moles/Vol] 26.2 mmol/L Normal 21.0-32.0 [facility] Comment on above: Performed By: #### B MP #### [facility] [address] [address] [address] Bethany Killian Creatinine [Mass/Vol] 1.06 mg/dL Normal 0.70-1.30 [facility] Comment on above: Performed By: #### B MP #### [facility] [address] [place] [address] Dr. Bethany Killian EGFR-AF CUBAN >60 Normal >=60 [facility] Comment on above: Performed By: #### B MP #### [facility] [address] [address] [address] Bethany Killian EGFR-NON AF CUBAN >60 Normal >=60 [facility] Comment on above: Performed By: #### B MP #### [facility] [address] [address] [address] Bethany Killian Glucose [Mass/Vol] 80 mg/dL Normal 74-[address] [facility] Comment on above: Performed By: #### B MP #### [facility] [address] [address] [address] Bethany Killian Potassium [Moles/Vol] 4.7 mmol/L Normal 3.5-5.[address] [facility] Comment on above: Performed By: #### B MP #### [facility] [address] [address] [address] Bethany Killian Sodium [Moles/Vol] 142 mmol/L Normal 136-145 [facility] Comment on above: Performed By: #### B MP #### [facility] [address] [address] [address] Bethany Killian Urea nitrogen [Mass/Vol] 26.0 mg/dL Critically high 7.0-18.[address] [facility] Comment on above: Performed By: #### B MP #### [facility] [address] [address] [address] Bethany Killian Urea nitrogen/Creatinine [Mass ratio] 24.5 mg/mg Normal [facility] Comment on above: Performed By: #### B MP #### [facility] [address] [place] [address] CSPINE WO CONon [...] Lam GORDILLO Date: 2022-06-11 19:49 Normal [facility] CT HEAD WO CONon 06-11-2022 CT HEAD [...] CHRISTEN ARREDONDO Date: 2022-06-11 19:24 Normal [facility] XR CHEST 2 Von 05-25-2022 XR CHEST [...] SAVAGE OATES Date: 2022-05-25 07:20 Normal [facility] PROF CHEM 8 (BAS METB)on Anion gap [Moles/Vol] 12.2 mmol/L Normal [facility] Comment on above: Performed By: #### B MP ####[facility] [address] [place], [place] [address]Dr. Bethany Killian Calcium [Mass/Vol] 8.7 mg/dL Normal 8.5-10.1 [facility] Comment on above: Performed By: #### B MP ####[facility] [address] [place], [place] [address]Dr. Bethany Killian Chloride [Moles/Vol] 106 mmol/L Normal 98-107 [facility] Comment on above: Performed By: #### B MP ####[facility] [address] [place], [place] [address]Dr. Bethany Killian CO2 [Moles/Vol] 26.0 mmol/L Normal 21.0-32.0 [facility] Comment on above: Performed By: #### B MP ####[facility] [address] [place], [place] [address]Dr. Bethany Killian Creatinine [Mass/Vol] 1.04 mg/dL Normal 0.70-1.30 [facility] Comment on above: Performed By: #### B MP ####[facility] [address] [place], [place] [address]Dr. Bethany Killian EGFR-AF CUBAN >60 Normal >=60 [facility] Comment on above: Performed By: #### B MP ####[facility] [address] [place], [place] [address]Dr. Bethany Killian EGFR-NON AF CUBAN >60 Normal >=[address] [facility] Comment on above: Performed By: #### B MP ####[facility] [address] [address]Dr. Bethany Killian Glucose [Mass/Vol] 85 mg/dL Normal 74-[address] [facility] Comment on above: Performed By: #### B MP ####[facility] [address] [id number][address] Bethany Killian Potassium [Moles/Vol] 4.2 mmol/L Normal 3.5-5.[address] [facility] Comment on above: Performed By: #### B MP ####[facility] [address] [address]Dr. Bethany Killian Sodium [Moles/Vol] 140 mmol/L Normal 136-[address] [facility] Comment on above: Performed By: #### B MP ####[facility] [address] [address]Dr. Bethany Killian Urea nitrogen [Mass/Vol] 29.0 mg/dL Critically high 7.0-18.[address] [facility] Comment on above: Performed By: #### B MP ####[facility] [address] [address]Dr. Bethany Killian Urea nitrogen/Creatinine [Mass ratio] 27.9 mg/mg Normal [facility] Comment on above: Performed By: #### B MP ####[facility] [address] [address]DrBhavin Killian CBC AUTO DIFFon 02-24-2022 BASO # 0.0 103/ul Normal 0.0-0.[address] [facility] Comment on above: Performed By: #### C BC #### [facility] [address] [address] [address] Bethany Killian Basophils/100 WBC (Bld) 0.3 % Normal 0.2-2.[address] [facility] Comment on above: Performed By: #### C BC #### [facility] [address] [address] [address] Bethany Killian EO # 0.2 103/ul Normal 0.0-0.[address] [facility] Comment on above: Performed By: #### C BC #### [facility] [address] [place] [address] Dr. Bethany Killian Eosinophils/100 WBC (Bld) 1.8 % Normal 0.9-7.[address] [facility] Comment on above: Performed By: #### C BC #### [facility] [address] [place] [address] Dr. Bethany Killian Erythrocyte distribution width (RBC) [Ratio] 14.8 % Normal 11.0-15.[address] [facility] Comment on above: Performed By: #### C BC #### [facility] [address] [place] [address] Dr. Bethany Killian Hematocrit (Bld) [Volume fraction] 38.3 % Critically low 42.0-54.[address] [facility] Comment on above: Performed By: #### C BC #### [facility] [address] [place] [address] Dr. Bethany Killian Hemoglobin (Bld) [Mass/Vol] 12.6 g/dL Critically low 14.0-18.[address] [facility] Comment on above: Performed By: #### C BC #### [facility] [address] [place] [address] Dr. Bethany Killian IG # 0.05 10e3/ul Critically high 0.00-0.03 [facility] Comment on above: Performed By: #### C BC #### [facility] [address] [place] [address] Dr. Bethany Killian IG % 0.6 % Critically high 0.0-0.5 [facility] Comment on above: Performed By: #### C BC #### [facility] [address] [place] [address] Dr. Bethany Killian LYMPH # 1.8 103/ul Normal 1.2-3.[address] [facility] Comment on above: Performed By: #### C BC #### [facility] [address] [place] [address] Dr. Bethany Killian Lymphocytes/100 WBC (Bld) 20.2 % Critically low 20.5-60.[address] [facility] Comment on above: Performed By: #### C BC #### [facility] [address] [place] [address] Dr. Bethany Killian MANUAL DIFF REQ NO Normal [facility] Comment on above: Performed By: #### C BC #### [facility] [address] [place] [address] Dr. Bethany Killian MCH (RBC) [Entitic mass] 29.9 pg Normal 25.9-34.[address] [facility] Comment on above: Performed By: #### C BC #### [facility] [address] [place] [address] Dr. Bethany Killian MCHC (RBC) [Mass/Vol] 32.9 g/dL Normal 29.9-35.[address] [facility] Comment on above: Performed By: #### C BC #### [facility] [address] [place] [address] Dr. Bethany Killian MCV (RBC) [Entitic vol] 90.8 fL Normal 80.0-94.[address] [facility] Comment on above: Performed By: #### C BC #### [facility] [address] [place] [address] Dr. Bethany Killian MONO # 0.9 103/ul Critically high 0.3-0.8 [facility] Comment on above: Performed By: #### C BC #### [facility] [address] [place] [address] Dr. Bethany Killian Monocytes/100 WBC (Bld) 9.9 % Normal 1.7-12.[address] [facility] Comment on above: Performed By: #### C BC #### [facility] [address] [place] [address] Dr. Bethany Killian NEUT # 5.9 103/ul Normal 1.4-6.5 [facility] Comment on above: Performed By: #### C BC #### [facility] [address] [place] [address] Dr. Bethany Killian Neutrophils/100 WBC (Bld) 67.2 % Normal 43.0-75.0 [facility] Comment on above: Performed By: #### C BC #### [facility] [address] [place] [address] Dr. Bethany Killian Platelet mean volume (Bld) [Entitic vol] 11.8 fL Normal 9.5-13.[address] [facility] Comment on above: Performed By: #### C BC #### [facility] [address] [place] [address] Dr. Bethany Killian PLT 242 103/ul Normal 150-450 [facility] Comment on above: Performed By: #### C BC #### [facility] [address] [place] [address] Dr. Bethany Killian RBC 4.22 106/ul Critically low 4.70-6.10 [facility] Comment on above: Performed By: #### C BC #### [facility] [address] [place] [address] Dr. Bethany Killian WBC 8.8 103/ul Normal 4.0-11.0 [facility] Comment on above: Performed By: #### C BC #### [facility] [address] [place] [address] Dr. Bethany Killian FERRITINon 02-24-2022 Ferritin [Mass/Vol] 156.0 ng/mL Normal 26.0-388.[address] [facility] Comment on above: Performed By: #### I BRAYAN FERR #### [facility] [address] [place] [address] Dr. Bethany Killian IRONon 02-24-2022 Iron [Mass/Vol] 99.0 ug/dL Normal 65.0-175.0 [facility] Comment on above: Performed By: #### I BRAYAN FERR #### [facility] [address] [place] [address] Dr. Bethany Killian PROF CHEM 8 (BAS METB)on Anion gap [Moles/Vol] 12.9 mmol/L Normal [facility] Comment on above: Result Comment: Prev iously reported as: 0.3 On 02/24/2022 13:42 By DM9 Performed By: #### B MP ####[facility] [address] [address]Dr. Bethany Killian Calcium [Mass/Vol] 8.9 mg/dL Normal 8.5-10.[address] [facility] Comment on above: Performed By: #### B MP ####[facility] [address] [address]Dr. Bethany Killian Chloride [Moles/Vol] 102 mmol/L Normal 98-107 [facility] Comment on above: Result Comment: Prev iously reported as: 108 On 02/24/2022 13:42 By DM9 Performed By: #### B MP ####[facility] [address] [address]Dr. Bethany Killian CO2 [Moles/Vol] 27.4 mmol/L Normal 21.0-32.0 [facility] Comment on above: Result Comment: Prev iously reported as: 27.8 On 02/24/2022 13:42 By DM9 Performed By: #### B MP ####[facility] [address] [place], [place] [address]Dr. Bethany Killian Creatinine [Mass/Vol] 1.21 mg/dL Normal 0.70-1.30 [facility] Comment on above: Performed By: #### B MP ####[facility] [address] [place], [place] [address]Dr. Felicitawalker Constantin EGFR-AF CUBAN >60 Normal >=60 [facility] Comment on above: Performed By: #### B MP ####[facility] [address] [address]Dr. Felicitawalker Constantin EGFR-NON AF CUBAN 58 mL/min/1.73m2 Critically low >=60 [facility] Comment on above: Performed By: #### B MP ####[facility] [address] [place], [place] [address]Dr. Felicitawalker Killian Glucose [Mass/Vol] 98 mg/dL Normal 74-[address] [facility] Comment on above: Performed By: #### B MP ####[facility] [address] [place], [place] [address]Dr. Bethany Killian Potassium [Moles/Vol] 4.3 mmol/L Normal 3.5-5.1 [facility] Comment on above: Result Comment: Prev iously reported as: 4.1 On 02/24/2022 13:42 By DM9 Performed By: #### B MP ####[facility] [address] [address]Dr. Bethany Killian Sodium [Moles/Vol] 138 mmol/L Normal 136-[address] [facility] Comment on above: Result Comment: Prev iously reported as: 132 On 02/24/2022 13:42 By DM9 Performed By: #### B MP ####[facility] [address] [place], [place] [address]Dr. Bethany Killian Urea nitrogen [Mass/Vol] 37.0 mg/dL Critically high 7.0-18.[address] [facility] Comment on above: Performed By: #### B MP ####[facility] [address] [place], [place] [address]DrBhavin Killian Urea nitrogen/Creatinine [Mass ratio] 30.6 mg/mg Normal [facility] Comment on above: Performed By: #### B MP ####[facility] [address] [place], [place] [address]Dr. Bethany Killian CBC AUTO DIFFon 01-02-2022 BASO # 0.0 103/ul Normal 0.0-0.[address] [facility] Comment on above: Performed By: #### C BC #### [facility] [address] [place] [address] Dr. Bethany Killian Basophils/100 WBC (Bld) 0.5 % Normal 0.2-2.0 [facility] Comment on above: Performed By: #### C BC #### [facility] [address] [place] [address] Dr. Bethany Killian EO # 0.1 103/ul Normal 0.0-0.[address] [facility] Comment on above: Performed By: #### C BC #### [facility] [address] [place] [address] Dr. Bethany Killian Eosinophils/100 WBC (Bld) 1.7 % Normal 0.9-7.[address] [facility] Comment on above: Performed By: #### C BC #### [facility] [address] [place] [address] Dr. Bethany Killian Erythrocyte distribution width (RBC) [Ratio] 14.6 % Normal 11.0-15.[address] [facility] Comment on above: Performed By: #### C BC #### [facility] [address] [place] [address] Dr. Bethany Killian Hematocrit (Bld) [Volume fraction] 37.8 % Critically low 42.0-54.[address] [facility] Comment on above: Performed By: #### C BC #### [facility] [address] [place] [address] Dr. Bethany Killian Hemoglobin (Bld) [Mass/Vol] 12.0 g/dL Critically low 14.0-18.[address] [facility] Comment on above: Performed By: #### C BC #### [facility] [address] [place] [address] Dr. Bethany Killian IG # 0.04 10e3/ul Critically high 0.00-0.03 [facility] Comment on above: Performed By: #### C BC #### [facility] [address] [place] [address] Dr. Bethany Killian IG % 0.5 % Normal 0.0-0.[address] [facility] Comment on above: Performed By: #### C BC #### [facility] [address] [place] [address] Dr. Bethany Killian LYMPH # 1.2 103/ul Normal 1.2-3.8 [facility] Comment on above: Performed By: #### C BC #### [facility] [address] [place] [address] Dr. Bethany Killian Lymphocytes/100 WBC (Bld) 15.1 % Critically low 20.5-60.[address] [facility] Comment on above: Performed By: #### C BC #### [facility] [address] [place] [address] Dr. Bethany Killian MANUAL DIFF REQ NO Normal [facility] Comment on above: Performed By: #### C BC #### [facility] [address] [place] [address] Dr. Bethany Killian MCH (RBC) [Entitic mass] 29.8 pg Normal 25.9-34.[address] [facility] Comment on above: Performed By: #### C BC #### [facility] [address] [place] [address] Dr. Bethany Killian MCHC (RBC) [Mass/Vol] 31.7 g/dL Normal 29.9-35.[address] [facility] Comment on above: Performed By: #### C BC #### [facility] [address] [place] [address] Dr. Bethany Killian MCV (RBC) [Entitic vol] 93.8 fL Normal 80.0-94.[address] [facility] Comment on above: Performed By: #### C BC #### [facility] [address] [place] [address] Dr. Bethany Killian MONO # 0.8 103/ul Normal 0.3-0.[address] [facility] Comment on above: Performed By: #### C BC #### [facility] [address] [place] [address] Dr. Bethany Killian Monocytes/100 WBC (Bld) 10.3 % Normal 1.7-12.[address] [facility] Comment on above: Performed By: #### C BC #### [facility] [address] [place] [address] Dr. Bethany Killian NEUT # 5.8 103/ul Normal 1.4-6.5 [facility] Comment on above: Performed By: #### C BC #### [facility] [address] [place] [address] Dr. Bethany Killian Neutrophils/100 WBC (Bld) 71.9 % Normal 43.0-75.[address] [facility] Comment on above: Performed By: #### C BC #### [facility] [address] [place] [address] Dr. Bethany Killian Platelet mean volume (Bld) [Entitic vol] 12.2 fL Normal 9.5-13.[address] [facility] Comment on above: Performed By: #### C BC #### [facility] [address] [address] [address] Bethany Killian PLT 241 103/ul Normal 150-[address] [facility] Comment on above: Performed By: #### C BC #### [facility] [address] [address] [address] Bethany Killian RBC 4.03 106/ul Critically low 4.70-6.10 [facility] [facility] Comment on above: Performed By: #### C BC #### [facility] [address] [address] [address] Bethany Killian WBC 8.1 103/ul Normal 4.0-11.[address] [facility] Comment on above: Performed By: #### C BC #### [facility] [address] [address] [address] Bethany Killian FREE T4on 01-02-2022 Free T4 [Mass/Vol] 1.00 ng/dL Normal 0.76-1.46 [facility] Comment on above: Performed By: #### F T4, PSASC ####[facility] [address] [place], [place] [address]Dr. Bethany Killian PROF 14(COMP METB)on 022 Albumin [Mass/Vol] 3.1 g/dL Critically low 3.4-5.0 [facility] Comment on above: Performed By: #### C MP, TSH ####[facility] [address] [address]DrBhavin Killian Albumin/Globulin [Mass ratio] 0.9 {ratio} Normal [facility] Comment on above: Performed By: #### C MP, TSH ####[facility] [address] [address]DrBhavin Killian ALP [Catalytic activity/Vol] 78 U/L Normal 46-[address] [facility] Comment on above: Performed By: #### C MP, TSH ####[facility] [address] [address]Dr. Bethany Killian ALT [Catalytic activity/Vol] 19 U/L Normal 16-63 [facility] Comment on above: Performed By: #### C MP, TSH ####[facility] [address] [address]Dr. Bethany Killian Anion gap [Moles/Vol] 9.0 mmol/L Normal [facility] Comment on above: Performed By: #### C MP, TSH ####[facility] [address] [address]Dr. Bethany Killian AST [Catalytic activity/Vol] 12 U/L Critically low 15-37 [facility] Comment on above: Performed By: #### C SALEEM, TSH ####[facility] [address] [place], [place] [address]Dr. Bethany Killian Bilirubin [Mass/Vol] 0.4 mg/dL Normal 0.2-1.[address] [facility] Comment on above: Performed By: #### C SALEEM, TSH ####[facility] [address] [place], [place] [address]Dr. Bethany Killian Calcium [Mass/Vol] 8.6 mg/dL Normal 8.5-10.1 [facility] Comment on above: Performed By: #### C SALEEM, TSH ####[facility] [address] [place], [place] [address]Dr. Bethany Killian Chloride [Moles/Vol] 105 mmol/L Normal 98-107 [facility] Comment on above: Performed By: #### C SALEEM, TSH ####[facility] [address] [address]Dr. Bethany Killian CO2 [Moles/Vol] 28.6 mmol/L Normal 21.0-32.0 [facility] Comment on above: Performed By: #### C MP, TSH ####[facility] [address] [address]Dr. Bethany Killian Creatinine [Mass/Vol] 0.99 mg/dL Normal 0.70-1.[address] [facility] Comment on above: Performed By: #### C SALEEM, TSH ####[facility] [address] [id number]. Bethany Killian EGFR-AF CUBAN >60 Normal >=60 [facility] Comment on above: Performed By: #### C MP, TSH ####[facility] [address] [address]Dr. Bethany Killian EGFR-NON AF CUBAN >60 Normal >=60 [facility] Comment on above: Performed By: #### C MP, TSH ####[facility] [address] [address]Dr. Bethany Killian Globulin (S) [Mass/Vol] 3.5 g/dL Normal [facility] Comment on above: Performed By: #### C MP, TSH ####[facility] [address] [address]Dr. Bethany Killian Glucose [Mass/Vol] 85 mg/dL Normal 74-[address] [facility] Comment on above: Performed By: #### C MP, TSH ####[facility] [address] [place], [place] [address]Dr. Bethany Killian Potassium [Moles/Vol] 4.6 mmol/L Normal 3.5-5.1 [facility] Comment on above: Performed By: #### C MP, TSH ####[facility] [address] [place], [place] [address]Dr. Bethany Killian Protein [Mass/Vol] 6.6 g/dL Normal 6.4-8.[address] [facility] Comment on above: Performed By: #### C MP, TSH ####[facility] [address] [address]Dr. Bethany Killian Sodium [Moles/Vol] 138 mmol/L Normal 136-[address] [facility] Comment on above: Performed By: #### C MP, TSH ####[facility] [address] [address]Dr. Bethany Killian Urea nitrogen [Mass/Vol] 30.0 mg/dL Critically high 7.0-18.0 [facility] Comment on above: Performed By: #### C MP, TSH ####[facility] [address] [id number]. Bethany Killian Urea nitrogen/Creatinine [Mass ratio] 30.3 mg/mg Normal [facility] Comment on above: Performed By: #### C MP, TSH ####[facility] [address] [id number]. Bethany Killian TSHon 01-02-2022 TSH 1.411 uIU/mL Normal 0.358-3.740 [facility] Comment on above: Performed By: #### C MP, TSH ####[facility] [address] [id number] Killian UA RANDOM W/MICROSCOPICon BACTERIA NONE SEEN Normal NONE SEEN [facility] Comment on above: Performed By: #### U AMIC #### [facility] [address] [place] [address] Dr. Bethany Killian Bilirubin Ql (U) Negative Normal NEGATIVE [facility] Comment on above: Performed By: #### U AMIC #### [facility] [address] [place] [address] Dr. Bethany Killian CAST NONE SEEN Normal NONE SEEN [facility] Comment on above: Performed By: #### U AMIC #### [facility] [address] [place] [address] Dr. Bethany Killian Clarity (U) CLEAR Normal CLEAR [facility] Comment on above: Performed By: #### U AMIC #### [facility] [address] [place] [address] Dr. Bethany Killian Color (U) LT. YELLOW Normal YELLOW [facility] Comment on above: Performed By: #### U AMIC #### [facility] [address] [address] [address] Bethany Killian Crystals LM Nom (Urine sed) NONE SEEN Normal NONE SEEN [facility] Comment on above: Performed By: #### U AMIC #### [facility] [address] [place] [address] Dr. Bethany Killian Epithelial cells LM Ql (Urine sed) NONE SEEN Normal NONE SEEN /RARE [facility] Comment on above: Performed By: #### U AMIC #### [facility] [address] [address] [address] Bethany Killian Glucose Ql (U) Negative Normal NEGATIVE [facility] Comment on above: Performed By: #### U AMIC #### [facility] [address] [address] [address] Bethany Killian Hemoglobin Ql (U) Negative Normal NEGATIVE [facility] Comment on above: Performed By: #### U AMIC #### [facility] [address] [address] [address] Bethany Killian Ketones Ql (U) Negative Normal NEGATIVE [facility] Comment on above: Performed By: #### U AMIC #### [facility] [address] [address] [address] Bethany Killian LEUKOCYTES Negative Normal NEGATIVE [facility] Comment on above: Performed By: #### U AMIC #### [facility] [address] [address] [address] Bethany Killian MUCOUS NONE SEEN Normal NONE SEEN [facility] Comment on above: Performed By: #### U AMIC #### [facility] [address] [address] [address] Bethany Killian Nitrite Ql (U) Negative Normal NEGATIVE [facility] Comment on above: Performed By: #### U AMIC #### [facility] [address] [address] [address] Bethany Killian pH (U) 6.5 [pH] Normal 5-[address] [facility] Comment on above: Performed By: #### U AMIC #### [facility] [address] [address] [address] Bethany Killian RBC 0-2 Normal 0-2 [facility] Comment on above: Performed By: #### U AMIC #### [facility] [address] [address] [address] Bethany Killian SPEC GRAVITY 1.020 Normal 1.005-<=1.025 [facility] Comment on above: Performed By: #### U AMIC #### [facility] [address] [place] [address] Dr. Bethany Killian UA PROTEIN Negative Normal NEGATIVE/ TRACE [facility] Comment on above: Performed By: #### U AMIC #### [facility] [address] [place] [address] Dr. Bethany Killian Urobilinogen Qn (U) 0.2 {Ian'U}/dL Normal 0.2 - 1. [address] [facility] Comment on above: Performed By: #### U AMIC #### [facility] [address] [place] [address] Dr. Bethany Killian WBC 0-2 Abnormal NONE SEEN [facility] Comment on above: Performed By: #### U AMIC #### [facility] [address] [place] [address] Dr. Bethany Killian US CAROTID ART BILon [...] by: SAVAGE OATES Date: 2021-11-01 07:[address] [facility] FUNGAL CULTURE/SM, MISCon FUNGAL CULTURE/SM, [facility] PATIENT: SUNNI JACKSON LOCATION: [address] BILL#: [id number] : 42 AGE: SEX: M ORDERED BY: DARNELL [facility]TI[facility]: 10/19/16 00:00ANTIBIOTICS AT [place]OR[place].: RECEIVED : 10/19/16 21:47SITE: R E S U L T S FUNGAL SMEAR FINAL 10/20/16 10:08 FLUORESCENT FUNGAL STAIN: NEGATIVE FUNGAL CULTURE/, MISC FINAL 11/06/16 10:46 NO FUNGI ISOLATED. Normal [facility] MISCELLANEOUS CULT./SM.BACT. on 10-19-2016 MISCELLANEOUS CULT./SM.BACT. PATIENT: SUNNI JACKSON LOCATION: [facility] BILL#: [id number] : 42 AGE: SEX: M ORDERED BY: DARNELL PELLETIER: [facility] COLLECTED: 10/19/16 00:00ANTIBIOTICS AT [place]OR[place].: RECEIVED : 10/19/16 22:24SITE: R E S U L T S GRAM STAIN FINAL 10/20/16 00:59 NO GRANULOCYTES OR ORGANISMS SEEN. MISCELLANEOUS CULT./SM.BACT. FINAL 10/22/16 11:43 2+ MIXED SKIN PAVITHRA Normal [facility] Encounters Encounter Date Encounter Type Care Provider Facility Start: 05-14-2023 End: 05-14-2023 ambulatory DEVI THANIA Not Available Start: 05-03-2023 End: 05-03-2023 ambulatory JOVANY OVALLE Not Available Start: 04-18-2023 End: 04-18-2023 ambulatory DEVI THANIA Not Available Start: 04-10-2023 Clinisync Result Encounter Devi Thania [employer] DESK WORKER Work Phone: [facility] Unsolicited Start: 04-10-2023 Clinisync Result Encounter Devi Thania [employer] DES[employer] WORKER Work Phone: [facility] Unsolicited Start: 04-03-2023 End: 04-03-2023 ambulatory DEVI AIMEEZ Not Available Start: 03-26-2023 End: 03-26-2023 ambulatory DELMY MENA Not Available Start: 07-25-2022 End: 07-26-2022 ambulatory VENITA VIEYRADARIN Facility:[facility] Start: 07-20-2022 End: 07-21-2022 ambulatory VENITA MONTEIRO Facility:[facility] Start: 06-11-2022 End: 06-11-[address] BART AL Facility:[facility] Start: 05-24-2022 End: 05-25-[address] SAVAGE OATES Facility:[facility] Start: 03-16-2022 End: 03-17-2022 ambulatory VENITA VIEYRADARIN Facility:[facility] Start: 02-24-2022 End: 02-25-2022 ambulatory VENITA VIEYRASUSANNAClau Facility:[facility] Start: 01-02-2022 End: 01-03-2022 ambulatory VENITA VIEYRASUSANNAClau Facility:[facility] Start: 10-29-2021 End: 10-30-[address] SAVAGE OATES Facility:[facility] Start: 07-27-2020 End: 10-31-2022 Patient encounter status Devi Vieyradarin [employer] DESK WORKER Work Phone: [facility] Procedures Date Procedure Procedure Detail Performing Clinician Start: 04-10-2023 ALL CBC WITH AUTO DIFF Devi Vieyrasusannaclau [employer] DESK WORKER Work Phone: Start: 01-02-2022 PSA screening VENITA VIEYRASUSANNAClau Comment on above: Performed By: #### F T4, PSASC ####[facility] [address] [address]DrBhavin Killian Plan of Treatment Date Care Activity Detail Author Start: 05-03-2023 End: 05-03-2023 Patient encounter procedure 05/03/2023 9:15 AM EST Office Visit [facility] [place] [address] [place] [id number] Jovany Ovalle S, DO [address] [place] [address] [facility] [place] Immunizations Immunization Date Immunization Notes Care Provider Fa cility 08-15-2022 Pneumococcal Conjuga te PCV 20 Devi Thania FR[employer] DESK WORKER Work Phone: [facility] 12-26-2021 Influenza, High-dose Seasonal, Quadrivalent, Preservative Free Devi Aichholz [employer] DESK WORKER Work Phone: [facility] 12-21-2020 influenza, injectabl e, quadrivalent, preservative free Devi Aichholz [employer] DESK WORKER Work Phone: [facility] 12-01-2020 Influenza, Seasonal, Quadrivalent, Adjuvanted Devi Aichholz FR[employer] DESK WORKER Work Phone: [facility] 11-16-2019 influenza, high dose seasonal, preservative-free Devi Aichholz [employer] DESK WORKER Work Phone: [facility] 09-06-2019 hepatitis A vaccine, adult dosage Devi Aichholz [employer] DESK WORKER Work Phone: [facility] 07-04-2019 zoster vaccine recombinant L evelia Aichholz FR[employer] DESK WORKER Work Phone: [facility] 04-08-2019 zoster vaccine recombinant L evelia Aichholz FR[employer] DESK WORKER Work Phone: [facility] 02-17-2019 hepatitis A vaccine, adult dosage Devi Aichholz [employer] DESK WORKER Work Phone: [facility] 02-17-2019 tetanus toxoid, redu renan diphtheria toxoid, and acellular pertussis vaccine, adsorbed Devi Aichholz [employer] DESK WORKER Work Phone: [facility] 12-03-2018 Seasonal trivalent influenza vaccine, adjuvanted, preservative free Devi Aichholz FR[employer] DESK WORKER Work Phone: [facility] 08-14-2016 tetanus toxoid, redu renan diphtheria toxoid, and acellular pertussis vaccine, adsorbed Devi Aichholz [employer] DES[employer] WORKER Work Phone: [facility] 12-13-2015 pneumococcal polysaccharide vaccine, 23 valent Devi Aichholz [employer] DESK WORKER Work Phone: [facility] 12-08-2015 influenza, injectabl e, quadrivalent, preservative free Devi Aichholz [employer] DESK WORKER Work Phone: [facility] 12-09-2014 influenza, injectabl e, quadrivalent, preservative free Deiv Aichholz FR[employer] DESK WORKER Work Phone: [facility] 10-07-2014 pneumococcal conjuga te vaccine, 13 valent Devi Aichholz [employer] DESK WORKER Work Phone: [facility] 08-11-2014 pneumococcal conjuga te vaccine, 13 valent Devi Aichholz FR[employer] DESK WORKER Work Phone: [facility] Healthcare Payers Date Payer Category Payer Unknown AARP AARP [id number] 2022-Present [address] [place] [address] [id number] 2006 Medicare MEDICARE MEDICAR E PART B [id number] 2006-Present [address] [address] [place] [address] Medicare [id number] 1959 Medicare [id number] 1959 Unknown [id number] 1941 Unknown [id number] 1941 Unknown [id number] 2.16.840.1.952645.3.579.2.59 1941 Unknown [id number] 2.16.840.1.570341.3.579.2.59 1941 Unknown [id number] 2.16.840.1.136680.3.579.2.593 1941 Unknown [id number] 2.16.840.1.907955.3.579.2.593 1941 Unknown [id number] 2.16.840.1.828697.3.579.2.593 1941 Unknown [id number] 2.16.840.1.387266.3.579.2.593 1941 Unknown [id number] 2.16.840.1.385610.3.579.2.593 1941 Unknown [id number] 2.16.840.1.421958.3.579.2.1259 1941 Unknown [id number] 2.16.840.1.394296.3.579.2.9 1941 Unknown [id number] 2.16.840.1.248979.3.579.2.9 1941 Unknown [id number] 2.16.840.1.760467.3.579.2.9 1941 Unknown [id number] 2.16.840.1.036726.3.579.2.1259 Social History Date Type Detail Facility Start: 09-19-2022 Tobacco smoking stat [facility] Smokes tobacco daily [facility] History of tobacco use [facility]igarette [facility] Start: 09-19-2022 End: 04-03-2023 Cigarettes smoked [...] Start: 1940 Sex Assigned At Male [facility] Start: 08-30-2022 Gender identity Identifies as [...] section and content) DATE CREATED AUTHOR 08/22/2017 [facility] DATE CREATED AUTHOR AUTHOR'S ORGANIZ ATION 08/04/2022 [facility] DATE CREATED AUTHOR AUTHOR'S ORGANIZ ATION 05/15/2023 [facility] Care Teams (unrecognized sec tion and content) Stations Superintendent Relationship Specialty Start Date End Date 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 NP [address] [place] [address] Nurse Practitioner Family Medicine 02/26/22 FOR RECORDS [...] BE BASED ON THE PRIMARY CLINICAL RECORDS. [employer] provides no warranty or guarantee of the accuracy or completeness of information in this document.
== END 2023-05-18 09:18 | disposition home or self-care (01) ==
LOC: MRI 09:17
PROVIDERS: PCP Nurse Practitioner; Visit Provider Nurse Practitioner
DX: M48.02 Spinal stenosis, cervical region (principal); M50.321 Other cervical disc degeneration at C4-C5 level; M50.323 Other cervical disc degeneration at C6-C7 level; M50.322 Other cervical disc degeneration at C5-C6 level
CPT/HCPCS: 72141

== ENCOUNTER 2023-09-03 12:35 | Outpatient (RCR) | payer MEDICARE, SELFPAY | END 2023-09-11 11:52 | disposition home or self-care (01) | LOC: PT 12:35 | PROVIDERS: PCP Nurse Practitioner | DX: M43.22 Fusion of spine, cervical region (principal); R29.3 Abnormal posture | CPT/HCPCS: 97110; 97112; 97161 ==

== ENCOUNTER 2023-09-13 16:19 | Outpatient (RCR) | payer MEDICARE, SELFPAY | END 2023-10-03 17:18 | disposition home or self-care (01) | LOC: ST 16:19 | PROVIDERS: PCP Nurse Practitioner; Visit Provider Nurse Practitioner | DX: R13.10 Dysphagia, unspecified (principal) | CPT/HCPCS: 92526; 92610 ==

== ENCOUNTER 2023-12-11 09:41 | Outpatient (OUT) | payer MEDICARE, SELFPAY ==
--- OUTSIDE RECORDS SUMMARY | 2023-12-11 09:54 | XMS_ITS | CCD ---
Author Organization [facility] Care Team Providers Care Lean Sensei Name Role Phone AICHHOLZ, HOME CARE SCHEDULER DEVI Attending Unavailable AICHHOLZ, HOME CARE SCHEDULER DEVI Consulting Unavailable AICHHOLZ, HOME CARE SCHEDULER DEVI Primary Care Unavailable AICHHOLZ, HOME CARE SCHEDULER DEVI Admitting Unavailable AICHHOLZ, HOME CARE SCHEDULER DEVI Attending Unavailable AICHHOLZ, HOME CARE SCHEDULER DEVI Consulting Unavailable AICHHOLZ, HOME CARE SCHEDULER DEVI Primary Care Unavailable AICHHOLZ, HOME CARE SCHEDULER DEVI Admitting Unavailable DR SAVAGE OATES V Consulting Unavailable ALINE, YULIYA Admitting Unavailable ALINE, YULIYA Attending Unavailable AICHHOLZ, HOME CARE SCHEDULER DEVI Primary Care Unavailable ALINE, YULIYA Consulting Unavailable AICHHOLZ, HOME CARE SCHEDULER DEVI Admitting Unavailable AICHHOLZ, HOME CARE SCHEDULER DEVI Consulting Unavailable AICHHOLZ, HOME CARE SCHEDULER DEVI Attending Unavailable AICHHOLZ, HOME CARE SCHEDULER DEVI Primary Care Unavailable DR ARTEM MIRANDA Consulting Unavailable AICHHOLZ, HOME CARE SCHEDULER DEVI Attending Unavailable AICHHOLZ, HOME CARE SCHEDULER DEVI Consulting Unavailable AICHHOLZ, HOME CARE SCHEDULER DEVI Primary Care Unavailable AICHHOLZ, HOME CARE SCHEDULER DEVI Admitting Unavailable DR BART AL Admitting Unavailramon e SERVANDO, DR BART Craig Attending Unavailabl e REINDR BART CONRAD Consulting Unavailabl e AICHHOLZ, HOME CARE SCHEDULER DEVI Primary Care Unavailable CHRISTEN ARREDONDO Consulting Unavailable SOPHIE SLATER Consulting Unavailable GISELLE GORDILLO Consulting Unavailable DR SAVAGE OATES V Consulting Unavailable AICHHOLZ, HOME CARE SCHEDULER DEVI Attending Unavailable AICHHOLZ, HOME CARE SCHEDULER DEVI Primary Care Unavailable AICHHOLZ, HOME CARE SCHEDULER DEVI Admitting Unavailable AICHHOLZ, HOME CARE SCHEDULER DEVI Consulting Unavailable AICHHOLZ, HOME CARE SCHEDULER DEVI Attending Unavailable AICHHOLZ, HOME CARE SCHEDULER DEVI Consulting Unavailable AICHHOLZ, HOME CARE SCHEDULER DEVI Primary Care Unavailable AICHHOLZ, HOME CARE SCHEDULER DEVI Admitting Unavailable Aichholz DIAGNOSTIC TECHNOLOGIST, Devi Unavailable Aichholz HOME CARE SCHEDULERDevi Jess Unavailable Aichholz VENITA Devi Mercado Primary Care Provider MICHELLE, GANDHIVARMA Attending Unavail able AICHHOLDEVI Olguin Primary Care Unavailable AICHHOLDEVI Olguin Primary Care Unavailable CLOVIS DONIS Referring Unavailable AICHHOLZDEVI Primary Care Unavailable MICHELLE, GANDHIVARMA Referring Unavail able MICHELLE, GANDHIVARMA Attending Unavail able AICHHOLClau, DEVI JESS Referring Unavailable MICHELLE, GANDHIVARMA Referring Unavail able DELMY MENA Attending Unavailable AICHHOLZ, DEVI Attending Unavailable AICHHOLZ, DEVI Attending Unavailable BIEDJOVANY FLOWERS Attending Unavailable AICHHOLZ, DEVI Attending Unavailable AICHHOLZ, DEVI Attending Unavailable AICHHOLZ, DEVI Attending Unavailable AICHHOLZ, DEVI Attending Unavailable JOÃOEDJOVANY FLOWERS Attending Unavailable AICHHOLZ, DEVI Referring Unavailable Allergies Allergy Classification Reported Allergen(s) Allergy Type Date of Onset Reaction(s) Facility Benzalkonium (1 source) Benzalkonium Drug Allergy 4 Rash [facility] (1 source) Bacitracin / Neomycin / Polymyxin B Drug Allergy 4 [facility] (1 source) black walnut pollen extract Drug Allergy [facility] (1 source) Amoxicillin Drug Allergy 3 Nausea Only [facility] (2 sources) Bacitracin Drug Allergy 1 rash, swelling [facility] (1 source) Bacitracin / Polymyxin B Drug Allergy 3 Swelling [facility] (1 source) HMG-CoA reductase inhibitor Drug Intolerance 1 [facility] (1 source) montelukast Drug Allergy 3 [facility] (2 sources) Neomycin Drug Allergy 1 rash, swelling [facility] (2 sources) Polymyxin B Drug Allergy 1 rash, swelling [facility] (1 source) Amoxicillin-Pot Clavulanate Drug Allergy 3 GI intolerance [facility] (1 source) Other Propensity to adverse reactions 10-14-201 9 [facility] (7 sources) Benzalkonium; Translations: [BENZALKONIUM CHLORIDE] Drug Allergy 4 Rash [facility] Medications Current Medications Medication Drug Class(es) Dates Sig (Normalized) Sig (Original) [id number] 200 actuat albuterol 0.09 mg/actuat metered dose inhaler (11 sources) beta2-Adrenergic Agonist Start: 04-03-2023 take 2 puff(s) by mouth every six hours for wheezing albuterol HFA (PROVENTIL HFA, VENTOLIN HFA) 90 mcg/actuation inhaler inhale 2 puffs by mouth and INTO THE LUNGS every 6 hours if needed for wheezing 04/03/2023 Active Start: 04-03-2023 End: 05-03-2023 take 2 puff(s) by inhalation every six hours for wheezing albuterol HFA 90 mcg/act inhaler Indications: COPD exacerbation (CMS/[facility]) Inhale 2 puffs every 6 (six) hours if needed for wheezing 18 g 1 04/03/2023 05/03/2023 Active ascorbic acid 113 mg / beta carotene 7160 mg / cuprous oxide 0.4 mg / dl-alpha tocopheryl acetate 100 unt / zinc oxide 17.4 mg oral tablet (6 sources) Vitamin C take 1 tablet by mouth once daily at breakfast vit A,C,S-Aoeo-Fetkix (PRESERVISION AREDS) 2,148 mcg-113 mg-45 mg-17.4mg tab Take 1 tablet by mouth daily with breakfast. Active ascorbic acid 113 mg / copper gluconate 0.4 mg / docosahexaenoic acid 87.5 mg / eicosapentaenoic acid 163 mg / lutein 2.5 mg / tocopherol acetate 100 unt / zeaxanthin 0.5 mg / zinc oxide 17.4 mg oral capsule (1 source) Vitamin C Multiple Vitamins-Minerals (PreserVision AREDS 2) capsule as directed Orally 0 Active aspirin 81 mg delayed release oral tablet (11 sources) Platelet Aggregation Inhibitor, Nonsteroidal Anti-inflammatory Drug aspirin, enteric coa marcie (ASPIRIN, ENTERIC COATED) 81 mg EC tablet Take 81 mg by mouth. Active 120 actuat budesonide 0.16 mg/actuat / formoterol fumarate 0.0048 mg/actuat / glycopyrrolate 0.009 mg/actuat metered dose inhaler (11 sources) Corticosteroid, beta2-Adrenergic Agonist budesonide-glycopyr- for moterol (BREZTRI AEROSPHERE) 160-9-4.8 mcg/actuation HFA aerosol inhaler Inhale 2 Puffs as instructed. Active doxycycline hyclate 100 mg oral tablet (1 source) Tetracycline-class Drug Start : 04-03 End: 04-13 doxycycline (Vibra-Tabs) 100 MG tablet Indications: COPD [...] mg oral tablet (1 source) Thiazide Diuretic Start : 10-02 take 0.5 tablet by mouth in the morning hydroCHLOROthiazide (HYDRODiuril) 25 MG tablet Indications: HTN (hypertension), benign (CMS/HCC) Take 0.5 tablets (12.5 mg) by mouth in the morning. 15 tablet 3 10/02/2022 Active hydrOXYzine hydrochloride 25 mg oral tablet (1 source) Antihistamine Start : 10-18 take 25 mg by mouth twice daily Hydroxyzine Hcl Active 25 MG PO Twice daily 14 October 19, 2023 12:00am lisinopril 40 mg oral tablet (11 sources) Angiotensin Converting Enzyme Inhibitor Start : 10-10 End: 08-25 lisinopril (ZESTRIL) 40 mg tablet Take 40 mg by mouth. 10/10/2018 Active mupirocin 0.02 mg/mg topical ointment (4 sources) RNA Synthetase Inhibitor Antibacterial Start : 06-18 End: 08-05 mupirocin (BACTROBAN) 2 % ointment Apply 1/2 ointment with a cotton swab in each nostril 2x daily for five days preop 22 g 0 06/19/2023 08/06/2023 Active piroxicam 10 mg oral capsule (1 source) Nonsteroidal Anti-inflammatory Drug Start : 12-25 End: 12-24 take 1 capsule by mouth in the morning piroxicam (Feldene) 10 MG capsule Indications: Degenerative disc disease, cervical , Cervical spinal stenosis Take 1 capsule (10 mg) by mouth in the morning. 30 capsule 11 12/25/2022 12/25/2023 Active predniSONE 20 mg oral tablet (1 source) Start : 04-03 End: 04-13 take 1 tablet by mouth in the morning predniSONE (Deltasone) 20 MG tablet Indications: COPD exacerbation (CMS/HCC) Take 1 tablet (20 mg) by mouth in the morning for 10 days. 10 tablet 0 04/03/2023 04/13/2023 Active triamcinolone acetonide 0.001 mg/mg topical ointment (6 sources) Corticosteroid Start : 10-18 Triamcinolone Acetonide Active 1 APPLIC TOPICAL Twice daily October 19, 2023 12:00am Start: 04-09-2023 End: 07-12-2023 take 2 spray(s) nasal route in the morning NASACORT 55 mcg nasal inhaler INSTILL 2 SPRAYS INTO EACH NOSTRIL IN THE MORNING 0 04/09/2023 07/12/2023 Discontinued (Course of therapy completed) Start: 04-09-2023 End: 05-09-2023 take 2 spray(s) nasal route in the morning triamcinolone (Nasacort) 55 MCG/ACT nasal inhaler Indications: Chronic rhinitis Administer 2 sprays into each nostril in the morning. 16.5 g 5 04/09/2023 05/09/2023 Active Completed/Discontinued Medications Medication Drug Class(es) Dates Sig (Normalized) Sig (Original) amLODIPine 5 mg oral tablet (11 sources) Dihydropyridine Calcium Channel Usama Start: 03-25-2023 End: 07-12-2023 take 1 tablet by mouth once amLODIPine (NORVASC) 5 mg tablet Take 1 tablet by mouth every afternoon. 0 03/25/2023 07/12/2023 Discontinued (Dosage adjustment) take 1 tablet by mouth once edy y amLODIPine (NORVASC) 10 mg tablet Take 10 mg by mouth once daily. Active montelukast 10 mg oral tablet (5 sources) Leukotriene Receptor Antagonist Start: 11-27-2022 End: 11-27-2023 montelukast (SINGULAIR) 10 mg tablet Take 10 mg by mouth. 0 11/27/2022 07/12/2023 Discontinued (Course of therapy completed) thiamine 100 mg oral tablet (5 sources) Start: 11-27-2022 End: 11-27-2023 take 1 tablet by mouth once daily in the morning thiamine (VITAMIN B1) 100 mg tablet Take 100 mg by mouth every morning. 0 03/25/2023 07/12/2023 Discontinued (Course of therapy completed) Problems Active Problems Problem Classification Problem Date Documented Date Episodic/Chronic Chronic kidney disease (2 sources) Chronic kidney disease; Translations: [Chronic kidney disease, unspecified] Onset: 4 07-04-2023 Chronic Chronic obstructive pulmonary disease and bronchiectasis (14 sources) Bronchiectasis; Translations: [Bronchiectasis, uncomplicated] Onset: 3 10-31-2022 Chronic Deficiency and other anemia (6 sources) Anemia, unspecified; Translations: [ANEMIA UNSPECIFIED] Onset: 2 Episodic Disorders of lipid metabolism (2 sources) Mixed hyperlipidemia; Translations: [Mixed hyperlipidemia] Onset: 1 Resolved: 3 04-03-2023 Chronic E Codes: Fall (1 source) Fall (on)(from) sidewalk curb, initial encounter; Translations: [FALL ON FROM SIDEWALK CURB INITIAL] Onset: 3 Episodic Esophageal disorders (1 source) Laryngopharyngeal reflux; Translations: [Gastro-esophageal reflux disease without esophagitis] Onset: 3 10-31-2022 Chronic Essential hypertension (16 sources) Essential (primary) hypertension; Translations: [Essential hypertension] Onset: 1 Resolved: 3 Chronic Occlusion or stenosis of precerebral arteries (14 sources) Occlusion and stenosis of left carotid artery; Translations: [Carotid artery stenosis] Onset: 1 Chronic Other aftercare (1 source) terminologist (current) use of aspirin; Translations: [LAYER UP CURRENT USE OF ASPIRIN] Onset: 3 Episodic Other aftercare (1 source) Other terminal block assembler (current) drug therapy; Translations: [OTH USP CURRENT DRUG THERAPY] Onset: 3 Episodic Other ear and sense organ disorders (1 source) Decreased hearing ; Translations: [Unspecified hearing loss, bilateral] Onset: 3 09-05-2022 Chronic Other ear and sense organ disorders (1 source) Chronic left myringitis; 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, left ear] Onset: 3 Resolved: 3 10-31-2022 Chronic Other male genital disorders (1 source) Balanitis xerotica obliterans; 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] Onset: 9 10-31-2022 Chronic Other nervous system disorders (11 sources) Myelomalacia; Translations: [Other specified diseases of spinal cord] Onset: 4 06-19-2023 Chronic Other nervous system disorders (1 source) Other specified diseases of spinal cord; Translations: [Cervical cord myelomalacia (HCC)] Onset: 4 Chronic Other nutritional; endocrine; and metabolic disorders (1 source) Other obesity due to excess calories; Translations: [Class 1 obesity due to excess calories with serious comorbidity and body mass index (BMI) of 30.0 to 30.9 in adult] Onset: 4 Chronic Other nutritional; endocrine; and metabolic disorders (1 source) Body mass index (BMI) 30.0-30.9, adult; Translations: [Class 1 obesity due to excess calories with serious comorbidity and body mass index (BMI) of 30.0 to 30.9 in adult] Onset: 4 Chronic Other nutritional; endocrine; and metabolic disorders (1 source) Overweight in adulthood with body mass index of 25 or more but less than 30; Translations: [Body mass index (BMI) 29.0-29.9, adult] Onset: 4 04-03-2023 Episodic Other screening for suspected conditions (not mental disorders or infectious disease) (7 sources) Abnormal finding of blood chemistry, unspecified; Translations: [Encounter for screening for malignant neoplasm of prostate] Onset: 2 Episodic Other upper respiratory disease (1 source) Chronic rhinitis; Translations: [Chronic rhinitis] Onset: 4 04-09-2023 Chronic Peripheral and visceral atherosclerosis (10 sources) Peripheral vascular disease; Translations: [Peripheral vascular disease, unspecified] Onset: 1 Resolved: 3 10-31-2022 Chronic Residual codes; unclassified (4 sources) H/O Spinal surgery; Translations: [Other specified postprocedural states] Onset: 4 08-06-2023 Episodic Residual codes; unclassified (1 source) Tobacco use; Translations: [Tobacco user] Onset: 4 Episodic Spondylosis; intervertebral disc disorders; other back problems (5 sources) Degeneration of cervical intervertebral disc; Translations: [Other cervical disc degeneration, unspecified cervical region] Onset: 3 12-12-2022 Chronic Spondylosis; intervertebral disc disorders; other back problems (3 sources) Spinal stenosis in cervical region; Translations: [Spinal stenosis, cervical region] Onset: 3 09-05-2022 Episodic Substance-related disorders (1 source) Nicotine dependence, cigarettes, uncomplicated; Translations: [NICOTINE DEPEND CIGARETTES UNCOMP] Onset: 3 Chronic Superficial injury; contusion (4 sources) Contusion of other part of head, initial encounter; Translations: [Abrasion of other part of head, initial encounter] Onset: 3 Episodic Thyroid disorders (6 sources) Nontoxic single thyroid nodule; Translations: [Thyroid nodule] Onset: 2 Chronic Unclassified (3 sources) COUGH, UNSPECIFIED; Translations: [COUGH, UNSPECIFIED] Onset: 3 Past or Other Problems Problem Classification Problem Date Documented Date Episodic/Chronic Deficiency and other anemia (8 sources) Anemia; Translations: [Anemia, unspecified] Onset: 05-14-2023 07-12-2023 Episodic Immunizations and screening for infectious disease (1 source) 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; Translations: [Other specified abnormal immunological [...] ear] Onset: 09-05-2022 Resolved: 10-31-2022 09-05-2022 Episodic Residual codes; unclassified (1 source) Other specified postprocedural states; Translations: [OTH SPECIFIED POSTPROCEDURAL STATES] Onset: 11-01-2021 Episodic Residual codes; unclassified (8 sources) Tobacco user; Translations: [Tobacco use] Onset: 05-14-2023 07-12-2023 Episodic Unclassified (1 source) COUGH, UNSPECIFIED; Translations: [COUGH, UNSPECIFIED] Onset: 05-24-2022 Results Test Name Value Interpretation Reference Range Facility [facility] 10-18-2023 [facility] Telephone (NSFRVW) SUNNI JACKSON ([id number]) 1940 M Date Time Provider Department 10/18/23 REBECA MARTINEZ [facility] During your visit today, we recorded the following information about you: Isaías Bonilla 10/18/2023 11:22 AM Signed Received outside medical records from [facility], discharge notes, in chart for review. Jerry George RN 10/18/2023 11:41 AM Signed noted Allergies As of Date: 10/18/2023 Noted Allergy Reaction NEOSPORIN (BENZALKONIUM CHLORIDE) 07/12/2023 2 - Rash Comments: Blisters/scarring on skin. Date Reviewed: 08/23/2023 Reviewed by: Nilsa Nguyen OCCA - Fully Assessed Reason for Visit: Received Outside Medical Records [[id number]] Prescriptions as of 10/18/2023 - vit A,C,C-Hvxp-Pcwbxg (PRESERVISION AREDS) 2,148 mcg-113 mg-45 mg-17.4mg tab Take 1 tablet by mouth daily with breakfast. - amLODIPine (NORVASC) 10 mg tablet Take 10 mg by mouth once daily. - albuterol HFA (PROVENTIL HFA, VENTOLIN HFA) 90 mcg/actuation inhaler inhale 2 puffs by mouth and INTO THE LUNGS every 6 hours if needed for wheezing - aspirin, enteric coated (ASPIRIN, ENTERIC COATED) 81 mg EC tablet Take 81 mg by mouth. - budesonide-glycopyr- formoterol (BREZTRI AEROSPHERE) 160-9-4.8 mcg/actuation HFA aerosol inhaler Inhale 2 Puffs as instructed. - lisinopril (ZESTRIL) 40 mg tablet Take 40 mg by mouth. 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] 06/19/2023 Anemia [D64.9] 05/14/2023 Carotid stenosis [I65.29] 08/23/2020 Essential (primary) hypertension [I10] 07/27/2020 Tobacco user [Z72.0] 05/14/2023 COPD (chronic obstructive pulmonary disease) (H*04/03/2023 Peripheral vascular disease (HCC) [I73.9] 07/27/2020 S/P spinal surgery [Z98.890] 08/06/2023 Encounter Status:Closed by JERRY GEORGE on 10/18/23 [facility] 09-03-2023 CNPN Telephone (NEADFV) RENETTASUNNI WALTERS ([id number]) 1940 M Date Time Provider Department 09/03/23 REBECA MARTINEZ [facility] During your visit today, we recorded the following information about you: Danay Rayo 09/03/2023 2:42 PM Signed [facility] PT Initial Exam report scanned to [employer] for review and completion Jerry George RN 09/03/2023 2:49 PM Signed Printed for review AND signature Allergies As of Date: 09/03/2023 Noted Allergy Reaction NEOSPORIN (BENZALKONIUM CHLORIDE) 07/12/2023 2 - Rash Comments: Blisters/scarring on skin. 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 - amLODIPine (NORVASC) 10 mg tablet Take 10 mg by mouth once daily. - albuterol HFA (PROVENTIL HFA, VENTOLIN HFA) 90 mcg/actuation inhaler inhale 2 puffs by mouth and INTO THE LUNGS every 6 hours if needed for wheezing - aspirin, enteric coated (ASPIRIN, ENTERIC COATED) 81 mg EC tablet Take 81 mg by mouth. - budesonide-glycopyr- formoterol (BREZTRI AEROSPHERE) 160-9-4.8 mcg/actuation HFA aerosol inhaler Inhale 2 Puffs as instructed. - lisinopril (ZESTRIL) 40 mg tablet Take 40 mg by mouth. 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] 06/19/2023 Anemia [D64.9] 05/14/2023 Carotid stenosis [I65.29] 08/23/2020 Essential (primary) hypertension [I10] 07/27/2020 Tobacco user [Z72.0] 05/14/2023 COPD (chronic obstructive pulmonary disease) (H*04/03/2023 Peripheral vascular disease (HCC) [I73.9] 07/27/2020 S/P spinal surgery [Z98.890] 08/06/2023 Encounter Status:Closed by JERRY GEORGE on 09/03/23 [facility] 08-27-2023 CNPN Telephone (NEADFV) SUNNI JACKSON ([id number]) 1940 M Date Time Provider Department 08/27/23 REBECA MARTINEZ [facility] During your visit today, we recorded the following information about you: Danay Rayo 08/27/2023 8:38 AM Signed Pt phoned asking if there were any restrictions he should follow. Please call and advise Pt phone [phone] Jermaine Granado, ARIEL 08/27/2023 9:46 AM Signed Called and spoke with patient. Answered all questions. Patient stated he was unaware that PT was ordered for him. [facility]. PT fax number [phone]. Faxed to number with confirmation fax. Allergies As of Date: 08/27/2023 Noted Allergy Reaction NEOSPORIN (BENZALKONIUM CHLORIDE) 07/12/2023 2 - Rash Comments: Blisters/scarring on skin. Date Reviewed: 08/23/2023 Reviewed by: Nilsa Nguyen OCCA - Fully Assessed Reason for Visit: Patient Question [2265] Prescriptions as of 08/27/2023 - vit A,C,U-Pnbq-Rdmdxi (PRESERVISION AREDS) 2,148 mcg-113 mg-45 mg-17.4mg tab Take 1 tablet by mouth daily with breakfast. - amLODIPine (NORVASC) 10 mg tablet Take 10 mg by mouth once daily. - albuterol HFA (PROVENTIL HFA, VENTOLIN HFA) 90 mcg/actuation inhaler inhale 2 puffs by mouth and INTO THE LUNGS every 6 hours if needed for wheezing - aspirin, enteric coated (ASPIRIN, ENTERIC COATED) 81 mg EC tablet Take 81 mg by mouth. - budesonide-glycopyr- formoterol (BREZTRI AEROSPHERE) 160-9-4.8 mcg/actuation HFA aerosol inhaler Inhale 2 Puffs as instructed. - lisinopril (ZESTRIL) 40 mg tablet Take 40 mg by mouth. 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] 06/19/2023 Anemia [D64.9] 05/14/2023 Carotid stenosis [I65.29] 08/23/2020 Essential (primary) hypertension [I10] 07/27/2020 Tobacco user [Z72.0] 05/14/2023 COPD (chronic obstructive pulmonary disease) (H*04/03/2023 Peripheral vascular disease (HCC) [I73.9] 07/27/2020 S/P spinal surgery [Z98.890] 08/06/2023 Encounter Status:[facility] Office Visit (SPSNAV) SUNNI JACKSON ([id number]) 1940 M Date Time Provider Department 08/23/23 11:40 AM REBECA MARTINEZ SPSNAV During your visit today, we recorded the following information about you: Rebeca Martinez MD 08/23/2023 11:42 AM Signed SPINE SURGERY FOLLOW UP This is an in-person visit. SERVICE DATE: 08/23/2023 SURGERY DATE: 08/06/2023 Sunni Jackson is a pleasant 89-year-old gentleman is here in spine surgery clinic for 2 weeks postoperative follow-up visit. He underwent a C4-5, C5-6 anterior cervical discectomy, allograft and instrumented fusion on 08/06/2023. Prior to surgery he was complaining of shocklike sensation in bilateral upper extremity for a year. He also noticed diffuse sensory disturbance up to fingers. 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 Since surgery his shocklike sensation is significantly improved. Numbness is improving. Imbalance is improving. He notices swallowing difficulty after surgery which is significantly improved with the steroid. He was also evaluated with a barium swallow during postoperative time. Still has minimal swallowing problem for big pills. Denies drainage from the incision. Denies hoarseness of voice. Denies fever PAIN EVALUATION No data found in the last 1 encounters. ANTIPLATELET OR ANTICOAGULATION STATUS: No Patient Entered Questionnaires PROMIS Score Percentiles Percentiles provide an indication of how the patient's score ranks in relation to the general population. Higher percentile rankings indicate better function/quality of life. 50th percentile is the average of the general population and indicates half of respondents had a worse score. Depression Screening: PHQ-9 Self-Harm (Item 9) response options: 0 Not at all 1 Several days 2 More than half the days 3 Nearly every day PHQ-9 Levels: 0-4 No to mild depression 5-9 Mild depression 10-14 Moderate depression 15-19 Moderately severe depression 20-27 Severe depression PHYSICAL EXAM: There were no vitals taken for this visit. GENERAL APPEARANCE: Well nourished, well developed, and no apparent distress. NEURO PSYCH: Patient oriented to person, place, and time. Mood pleasant. Benign affect. MUSCULOSKELETAL VISUAL INSPECTION CERVICAL: Anterior cervical incision is healing well. No signs of infection. THORACIC: WNL LUMBAR: WNL MOTOR: 5/5 in all muscle groups. SENSORY: Normal sensory exam GAIT: Stable gait. REFLEXES: +2 to bilateral U/L extremities. PROPRIOCEPTION: Normal. LONG TRACT SIGNS: No clonus. No Hoffmans. STRAIGHT LEG TEST: Ipsilateral: Negative. Contralateral: Negative. L'HERMITTES SIGN: Negative. SPURLING'S TEST: Not tested. DATA REVIEW [facility] records independently reviewed Images independently reviewed with the patient ASSESSMENT/PLAN Sunni Jackson is a pleasant 89-year-old gentleman is here in spine surgery clinic for 2 weeks postoperative follow-up visit. He underwent a C4-5, C5-6 anterior cervical discectomy, allograft and instrumented fusion on 08/06/2023. Prior to surgery he was complaining of shocklike sensation in bilateral upper extremity for a year. He also noticed diffuse sensory disturbance up to fingers. 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 Since surgery his shocklike sensation is significantly improved. Numbness is improving. Imbalance is improving. He notices swallowing difficulty after surgery which is significantly improved with the steroid. He was also evaluated with a barium swallow during postoperative time. Still has minimal swallowing problem for big pills. Denies drainage from the incision. Denies hoarseness of voice. Denies fever Examination showed well-healing anterior cervical incision, no signs of infection. No motor weakness. Stable gait. Discussed clinical finding. Recommended physical therapy, which is ordered. Recommended to increase his activities as tolerated, avoid lifting weight more than 15 to 20 pounds for another 4 weeks. Follow-up in spine surgery clinic at 6 months with x-ray cervical spine. X-ray cervical spine ordered for follow-up visit. The majority of the visit was spent counseling and/or coordinating care for the patient. The patient was counseled regarding shocklike sensation in upper extremity, cervical spondylosis, cervical myelopathy, cervical discectomy and fusion, swallowing difficulty, neck exercises, physical therapy. Total face to face time was 20 minutes. SIGNATURE: Rebeca Martinez MD PATIENT NAME: Sunni Jackson DATE: August 23, 2023 TIME: 11:32 AM PAGER: Allergies As of Date: 08/23/2023 Noted Allergy Reaction NEOSPORIN (BENZALKONIUM CHLORIDE) 07/12/2023 2 - Rash Comments: Blisters/scarring on skin. Date Reviewed: 08/23/2023 Reviewed by: Nilsa Nguyen OCC (more content not included)... [facility] Telephone (ORS[place]) SUNNI JACKSON ([id number]) 1940 M Date Time Provider Department 07/13/23 CLOVIS DONIS During your visit today, we recorded the following information about you: Clovis Donis APRN.CNP 07/13/2023 7:58 AM Signed Patient was seen 07/11 in [facility] regarding upcoming surgery C4-5, C5-6 ACDF / C5 corpectomy scheduled on 08/05. Patient is currently on ASA for left carotid endarterectomy, he follows with [facility] and carotids are stable at this time. He was recently taken off of Plavix, would you prefer he go off of ASA for surgery, or is patient ok to stay on ASA 81 mg for surgery. Thank you Clovis Donis DIAGNOSTIC TECHNOLOGIST-C Allergies As of Date: 07/13/2023 Noted Allergy Reaction NEOSPORIN (BENZALKONIUM CHLORIDE) 07/12/2023 2 - Rash Comments: Blisters/scarring on skin. Date Reviewed: 07/12/2023 Reviewed by: Clovis Donis, KAT.HOME CARE SCHEDULER - Fully Assessed Reason for Visit: Medication Problem [65] Prescriptions as of 07/13/2023 - vit A,C,F-Yhza-Gklgol (PRESERVISION AREDS) 2,148 mcg-113 mg-45 mg-17.4mg tab Take 1 tablet by mouth daily with breakfast. - amLODIPine (NORVASC) 10 mg tablet Take 10 mg by mouth once daily. - albuterol HFA (PROVENTIL HFA, VENTOLIN HFA) 90 mcg/actuation inhaler inhale 2 puffs by mouth and INTO THE LUNGS every 6 hours if needed for wheezing - aspirin, enteric coated (ASPIRIN, ENTERIC COATED) 81 mg EC tablet Take 81 mg by mouth. - budesonide-glycopyr- formoterol (BREZTRI AEROSPHERE) 160-9-4.8 mcg/actuation HFA aerosol inhaler Inhale 2 Puffs as instructed. - lisinopril (ZESTRIL) 40 mg tablet Take 40 mg by mouth. 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] 06/19/2023 Anemia [D64.9] 05/14/2023 Carotid stenosis [I65.29] 08/23/2020 Essential (primary) hypertension [I10] 07/27/2020 Tobacco user [Z72.0] 05/14/2023 COPD exacerbation (HCC) [J44.1] 04/03/2023 Peripheral vascular disease (HCC) [I73.9] 07/27/2020 Encounter Status:Closed by CLOVIS DONIS on 07/13/23 Normal [facility] ACTIVATED PARTIAL THROMBOPLA STIN TIMEOrdered By: Cata Miranda on 07-12-2023 aPTT Coag (PPP) [Time] 31.9 s [facility] Comment on above: Frozen Plasma Aliquo t CBC W Auto Differential pane l (Bld)on 07-12-2023 Basophils (Bld) [#/Vol] 0.04 10*3/uL [facility] Basophils/100 WBC (Bld) 0.5 % [facility] Differential cell count method Nom (Bld) Auto [facility] Eosinophils (Bld) [#/Vol] 0.21 10*3/uL [facility] Eosinophils/100 WBC (Bld) 2.4 % [facility] Erythrocyte distribution width (RBC) [Ratio] 15.0 % 11.5 - 15.0 % [facility] Hematocrit (Bld) [Volume fraction] 41.3 % 39.0 - 51.0 % [facility] Hemoglobin (Bld) [Mass/Vol] 13.5 g/dL 13.0 - 17.0 g/dL [facility] Immature granulocytes (Bld) [#/Vol] 0.05 10*3/uL [facility] Immature granulocytes/100 WBC (Bld) 0.6 % [facility] Lymphocytes (Bld) [#/Vol] 1.53 10*3/uL [facility] Lymphocytes/100 WBC (Bld) 17.4 % [facility] MCH (RBC) [Entitic mass] 30.1 pg 26.0 - 34.0 pg [facility] MCHC (RBC) [Mass/Vol] 32.7 g/dL 30.5 - 36.0 g/dL [facility] MCV (RBC) [Entitic vol] 92.0 fL 80.0 - 100.0 fL [facility] Monocytes (Bld) [#/Vol] 0.63 10*3/uL [facility] Monocytes/100 WBC (Bld) 7.2 % [facility] Neutrophils (Bld) [#/Vol] 6.33 10*3/uL [facility] Neutrophils/100 WBC (Bld) 71.9 % [facility] Nucleated RBC (Bld) [#/Vol] NINF [facility] Nucleated RBC/100 WBC (Bld) [Ratio] 0.0 % /100 WBC [facility] Platelet mean volume (Bld) [Entitic vol] 12.2 fL 9.0 - 12.7 fL [facility] Platelets (Bld) [#/Vol] 230 10*3/uL [facility] RBC (Bld) [#/Vol] 4.49 10*6/uL 4.20 - 6.0 0 m/uL [facility] WBC (Bld) [#/Vol] 8.79 10*3/uL [facility] Basophils (Bld) [#/Vol] 0.04 10*3/uL Normal <0.11 [facility] Comment on above: Order Comment: Speci men Type: BLOOD SPECIMEN Ordering Facility: [facility] Address: [address] [place] [address] Performed By: #### 3 4528-0, 75959-7 #### [facility] CLIA [id number] [address] [place] [address] [place] Basophils/100 WBC (Bld) 0.5 % Normal [facility] Comment on above: Order Comment: Speci men Type: BLOOD SPECIMEN Ordering Facility: [facility] Address: [address] [place], [place] [id number] Performed By: #### 3 4528-0, 73052-7 #### [facility] CLIA [id number] [address] [place] [address] [place] Differential cell count method Nom (Bld) Auto Normal [facility] Comment on above: Order Comment: Speci men Type: BLOOD SPECIMEN Ordering Facility: [facility] Address: [address] [place] [address] Performed By: #### 3 4528-0, 17510-7 #### [facility] CLIA [id number] [address] [place] [address] [place] Eosinophils (Bld) [#/Vol] 0.21 10*3/uL Normal <0.46 [facility] Comment on above: Order Comment: Speci men Type: BLOOD SPECIMEN Ordering Facility: [facility] Address: [address] [place] [address] Performed By: #### 3 4528-0, 84643-1 #### [facility] CLIA [id number] [address] [place] [address] [place] Eosinophils/100 WBC (Bld) 2.4 % Normal [facility] Comment on above: Order Comment: Speci men Type: BLOOD SPECIMEN Ordering Facility: [facility] Address: [address] [place] [address] Performed By: #### 3 4528-0, 75185-5 #### [facility] CLIA [id number] [address] [place] [address] [place] Erythrocyte distribution width (RBC) [Ratio] 15.0 % Normal 11.5-15.0 [facility] Comment on above: Order Comment: Speci men Type: BLOOD SPECIMEN Ordering Facility: [facility] Address: [address] [place] [address] Performed By: #### 3 4528-0, 44992-5 #### [facility] CLIA [id number] [address] [place] [address] [place] Hematocrit (Bld) [Volume fraction] 41.3 % Normal 39.0-51.0 [facility] Comment on above: Order Comment: Speci men Type: BLOOD SPECIMEN Ordering Facility: [facility] Address: [address] [place] [address] Performed By: #### 3 4528-0, 66196-6 #### [facility] CLIA [id number] [address] [place] [address] [place] Hemoglobin (Bld) [Mass/Vol] 13.5 g/dL Normal 13.0-17.0 [facility] Comment on above: Order Comment: Speci men Type: BLOOD SPECIMEN Ordering Facility: [facility] Address: [address] [place] [address] Performed By: #### 3 4528-0, 43927-9 #### [facility] CLIA [id number] [address] [place] [address] [place] Immature granulocytes (Bld) [#/Vol] 0.05 10*3/uL Normal <0.10 [facility] Comment on above: Order Comment: Speci men Type: BLOOD SPECIMEN Ordering Facility: [facility] Address: [address] [place] [address] Performed By: #### 3 4528-0, 84270-7 #### [facility] CLIA [id number] [address] [place] [address] [place] Immature granulocytes/100 WBC (Bld) 0.6 % Normal [facility] Comment on above: Order Comment: Speci men Type: BLOOD SPECIMEN Ordering Facility: [facility] Address: [address] [place] [address] Performed By: #### 3 4528-0, 70336-3 #### [facility] CLIA [id number] [address] [place] [address] [place] Lymphocytes (Bld) [#/Vol] 1.53 10*3/uL Normal 1.00-4.00 [facility] Comment on above: Order Comment: Speci men Type: BLOOD SPECIMEN Ordering Facility: [facility] Address: [address] [place] [address] Performed By: #### 3 4528-0, 93897-5 #### [facility] CLIA [id number] [address] [place] [address] [place] Lymphocytes/100 WBC (Bld) 17.4 % Normal [facility] Comment on above: Order Comment: Speci men Type: BLOOD SPECIMEN Ordering Facility: [facility] Address: [address] [place] [address] Performed By: #### 3 4528-0, 70917-7 #### [facility] CLIA [id number] [address] [place] [address] [place] MCH (RBC) [Entitic mass] 30.1 pg Normal 26.0-34.0 [facility] Comment on above: Order Comment: Speci men Type: BLOOD SPECIMEN Ordering Facility: [facility] Address: [address] [place] [address] Performed By: #### 3 4528-0, 52304-3 #### [facility] CLIA [id number] [address] [place] [address] [place] MCHC (RBC) [Mass/Vol] 32.7 g/dL Normal 30.5-36.0 [facility] Comment on above: Order Comment: Speci men Type: BLOOD SPECIMEN Ordering Facility: [facility] Address: [address] [place] [address] Performed By: #### 3 4528-0, 22445-0 #### [facility] CLIA [id number] [address] [place] [address] [place] MCV (RBC) [Entitic vol] 92.0 fL Normal 80.0-100.0 [facility] Comment on above: Order Comment: Speci men Type: BLOOD SPECIMEN Ordering Facility: [facility] Address: [address] [place] [address] Performed By: #### 3 4528-0, 93009-6 #### [facility] CLIA [id number] [address] [place] [address] [place] Monocytes (Bld) [#/Vol] 0.63 10*3/uL Normal <0.87 [facility] Comment on above: Order Comment: Speci men Type: BLOOD SPECIMEN Ordering Facility: [facility] Address: [address] [place] [address] Performed By: #### 3 4528-0, 45313-5 #### [facility] CLIA [id number] [address] [place] [address] [place] Monocytes/100 WBC (Bld) 7.2 % Normal [facility] Comment on above: Order Comment: Speci men Type: BLOOD SPECIMEN Ordering Facility: [facility] Address: [address] [place] [address] Performed By: #### 3 4528-0, 80564-8 #### [facility] CLIA [id number] [address] [place] [address] [place] Neutrophils (Bld) [#/Vol] 6.33 10*3/uL Normal 1.45-7.50 [facility] Comment on above: Order Comment: Speci men Type: BLOOD SPECIMEN Ordering Facility: [facility] Address: [address] [place] [address] Performed By: #### 3 4528-0, 61830-6 #### [facility] CLIA [id number] [address] [place] [address] [place] Neutrophils/100 WBC (Bld) 71.9 % Normal [facility] Comment on above: Order Comment: Speci men Type: BLOOD SPECIMEN Ordering Facility: [facility] Address: [address] [place] [address] Performed By: #### 3 4528-0, 26737-0 #### [facility] CLIA [id number] [address] [place] [address] [place] Nucleated RBC (Bld) [#/Vol] 10*3/uL Normal <0.01 [facility] Comment on above: Order Comment: Speci men Type: BLOOD SPECIMEN Ordering Facility: [facility] Address: [address] [place] [address] Performed By: #### 3 4528-0, 26730-9 #### [facility] CLIA [id number] [address] [place] [address] [place] Nucleated RBC/100 WBC (Bld) [Ratio] 0.0 /100 WBC Normal [facility] Comment on above: Order Comment: Speci men Type: BLOOD SPECIMEN Ordering Facility: [facility] Address: [address] [place] [address] Performed By: #### 3 4528-0, 45013-1 #### [facility] CLIA [id number] [address] [place] [address] [place] Platelet mean volume (Bld) [Entitic vol] 12.2 fL Normal 9.0-12.7 [facility] Comment on above: Order Comment: Speci men Type: BLOOD SPECIMEN Ordering Facility: [facility] Address: [address] [place] [address] Performed By: #### 3 4528-0, 19057-7 #### [facility] CLIA [id number] [address] [place] [address] [place] Platelets (Bld) [#/Vol] 230 10*3/uL Normal 150-400 [facility] Comment on above: Order Comment: Speci men Type: BLOOD SPECIMEN Ordering Facility: [facility] Address: [address] [place] [address] Performed By: #### 3 4528-0, 80613-2 #### [facility] CLIA [id number] [address] [place] [address] [place] RBC (Bld) [#/Vol] 4.49 10*6/uL Normal 4.20-6.[address] [facility] Comment on above: Order Comment: Speci men Type: BLOOD SPECIMEN Ordering Facility: [facility] Address: [address] [place] [address] Performed By: #### 3 4528-0, 06013-7 #### [facility] CLIA [id number] [address] [place] [address] [place] WBC (Bld) [#/Vol] 8.79 10*3/uL Normal 3.70-11.[address] [facility] Comment on above: Order Comment: Speci men Type: BLOOD SPECIMEN Ordering Facility: [facility] Address: [address] [place] [address] Performed By: #### 3 4528-0, 24568-5 #### [facility] CLIA [id number] [address] [place] [address] [place] CONFIRM BLOOD TYPEon 024 ABO group Nom (Bld) A [facility] Rh Nom (Bld) Positive [facility] ABO A Normal [facility] Comment on above: Order Comment: Speci men Type: BLOOD SPECIMEN Ordering Facility: [facility] Address: [address] [place] [address] Performed By: #### 3 4528-0, 67855-4 #### [facility] CLIA [id number] [address] [place] [address] [place] Rh Nom (Bld) Positive Normal [facility] Comment on above: Order Comment: Speci men Type: BLOOD SPECIMEN Ordering Facility: [facility] Address: [address] [place] [address] Performed By: #### 3 4528-0, 29532-4 #### [facility] CLIA [id number] [address] [place] [address] [place] Comprehensive metabolic 2000 panelon 07-12-2023 Albumin [Mass/Vol] 3.9 g/dL 3.9 - 4.9 g/dL [facility] ALP [Catalytic activity/Vol] 90 U/L 38 - 113 U/L [facility] ALT [Catalytic activity/Vol] 12 U/L 10 - 54 U/L [facility] Anion gap [Moles/Vol] 11 mmol/L 9 - 18 mmol/L [facility] AST [Catalytic activity/Vol] 17 U/L 14 - 40 U/L [facility] Bilirubin [Mass/Vol] 0.2 mg/dL 0.2 - 1 .3 mg/dL [facility] Calcium [Mass/Vol] 9.0 mg/dL 8.5 - 10. 2 mg/dL [facility] Chloride [Moles/Vol] 106 mmol/L High 97 - 10 5 mmol/L [facility] CO2 [Moles/Vol] 23 mmol/L 22 - 30 mmol/L [facility] Creatinine [Mass/Vol] 0.90 mg/dL 0.73 - 1.22 mg/dL [facility] GFR/1.73 sq M.predicted among non-blacks MDRD (S/P/Bld) [Vol rate/Area] 85 mL/min/{1.73_m2} - PINF [facility] Comment on above: Estimated Glomerular Filtration Rate (eGFR) is calculated using the 2020 CKD-EPI creatinine equation. This equation utilizes serum creatinine, sex, and age as parameters. The creatinine assay has traceable calibration to isotope dilution-mass spectrometry. Refer to KDIGO guidelines for clinical interpretation. In patients with unstable renal function, e.g. those with acute kidney injury, the eGFR may not accurately reflect actual GFR. Glucose [Mass/Vol] 99 mg/dL 74 - 99 mg/dL [facility] Comment on above: The [place] Di[employer] Association (ADA) provides guidance for cutoff values for fasting glucose and random glucose. The ADA defines fasting as no caloric intake for at least 8 hours. Fasting plasma glucose results between 100 to 125 mg/dL indicate increased risk for diabetes (prediabetes). Fasting plasma glucose results greater than or equal to 126 mg/dL meet the criteria for diagnosis of diabetes. In the absence of unequivocal hyperglycemia, results should be confirmed by repeat testing. In a patient with classic symptoms of hyperglycemia or hyperglycemic crisis, random plasma glucose results greater than or equal to 200 mg/dL meet the criteria for diagnosis of diabetes. Reference: Standards of Medical Care in Diabetes 2016, [place] [employer]. Diabetes Care. 2016.39(Suppl 1). Interpretation and review of laboratory results Abnormal [facility] Potassium [Moles/Vol] 4.3 mmol/L 3.7 - 5.1 mmol/L [facility] Protein [Mass/Vol] 6.5 g/dL 6.3 - 8.0 g/dL [facility] Sodium [Moles/Vol] 140 mmol/L 136 - 144 mmol/L [facility] Urea nitrogen [Mass/Vol] 24 mg/dL 9 - 24 mg/dL [facility] Albumin [Mass/Vol] 3.9 g/dL Normal 3.9-4.9 [facility] Comment on above: Order Comment: [place] duke Type: BLOOD SPECIMEN Ordering Facility: [facility] Address: [address] [place] [address] Performed By: #### 5 0190-8, 51861-1, 2275-4 #### [facility] CLIA [id number] [address] [place] [address] [place] ALP [Catalytic activity/Vol] 90 U/L Normal 38-113 [facility] Comment on above: Order Comment: [place] duke Type: BLOOD SPECIMEN Ordering Facility: [facility] Address: [address] [place] [address] Performed By: #### 5 0190-8, 74061-7, 2275-4 #### [facility] CLIA [id number] [address] [place] [address] [place] ALT [Catalytic activity/Vol] 12 U/L Normal 10-54 [facility] Comment on above: Order Comment: [place] duke Type: BLOOD SPECIMEN Ordering Facility: [facility] Address: [address] [place] [address] Performed By: #### 5 0190-8, 35139-7, 2275-4 #### [facility] CLIA [id number] [address] [address] [place] Anion gap [Moles/Vol] 11 mmol/L Normal 9-18 [facility] Comment on above: Order Comment: Speci men Type: BLOOD SPECIMEN Ordering Facility: [facility] Address: [address] [place] [address] Performed By: #### 5 0190-8, 37565-4, 2275-4 #### [facility] CLIA [id number] [address] [place] [address] [place] AST [Catalytic activity/Vol] 17 U/L Normal 14-40 [facility] Comment on above: Order Comment: Speci men Type: BLOOD SPECIMEN Ordering Facility: [facility] Address: [address] [place] [address] Performed By: #### 5 0190-8, 04915-7, 4 #### [facility] CLIA [id number] [address] [place] [address] [place] Bilirubin [Mass/Vol] 0.2 mg/dL Normal 0.2-1.3 [facility] Comment on above: Order Comment: Speci men Type: BLOOD SPECIMEN Ordering Facility: [facility] Address: [address] [place] [address] Performed By: #### 5 0190-8, 67601-3, 4 #### [facility] CLIA [id number] [address] [place] [address] [place] Calcium [Mass/Vol] 9.0 mg/dL Normal 8.5-10.2 [facility] Comment on above: Order Comment: Speci men Type: BLOOD SPECIMEN Ordering Facility: [facility] Address: [address] [place] [address] Performed By: #### 5 0190-8, 47438-7, 2275-4 #### [facility] CLIA [id number] [address] [place], [place] [address] [place] Chloride [Moles/Vol] 106 mmol/L High 97-105 [facility] Comment on above: Order Comment: Speci men Type: BLOOD SPECIMEN Ordering Facility: [facility] Address: [address] [place] [address] Performed By: #### 5 0190-8, 78951-5, 2275-4 #### [facility] CLIA [id number] [address] [place] [address] [place] CO2 [Moles/Vol] 23 mmol/L Normal 22-30 [facility] Comment on above: Order Comment: Speci men Type: BLOOD SPECIMEN Ordering Facility: [facility] Address: [address] [place] [address] Performed By: #### 5 0190-8, 41786-7, 4 #### [facility] CLIA [id number] [address] [place] [address] [place] Creatinine [Mass/Vol] 0.90 mg/dL Normal 0.73-1.22 [facility] Comment on above: Order Comment: Speci men Type: BLOOD SPECIMEN Ordering Facility: [facility] Address: [address] [place] [address] Performed By: #### 5 0190-8, 84011-2, 4 #### [facility] CLIA [id number] [address] [place] [address] [place] Creatinine and Glomerular filtration rate.predicted panel (S/P/Bld) 85 mL/min/1.73m??? Normal >=60 [facility] Comment on above: Order Comment: Speci men Type: BLOOD SPECIMEN Ordering Facility: [facility] Address: [address] [place] [address] Result Comment: Kirsty mated Glomerular Filtration Rate (eGFR) is calculated using the 2020 CKD-EPI creatinine equation. This equation utilizes serum creatinine, sex, and age as parameters. The creatinine assay has traceable calibration to isotope dilution-mass spectrometry. Refer to KDIGO guidelines for clinical interpretation. In patients with unstable renal function, e.g. those with acute kidney injury, the eGFR may not accurately reflect actual GFR. Performed By: #### 5 0190-8, 00294-9, 2275-05 #### [facility] CLIA [id number] [address] [place] [address] [place] Glucose [Mass/Vol] 99 mg/dL Normal 74-99 [facility] Comment on above: Order Comment: Juana duke Type: BLOOD SPECIMEN Ordering Facility: [facility] Address: [address] [place] [address] Result Comment: The [place] [employer] (ADA) provides guidance for cutoff values for fasting glucose and random glucose. The ADA defines fasting as no caloric intake for at least 8 hours. Fasting plasma glucose results between 100 to 125 mg/dL indicate increased risk for diabetes (prediabetes). Fasting plasma glucose results greater than or equal to 126 mg/dL meet the criteria for diagnosis of diabetes. In the absence of unequivocal hyperglycemia, results should be confirmed by repeat testing. In a patient with classic symptoms of hyperglycemia or hyperglycemic crisis, random plasma glucose results greater than or equal to 200 mg/dL meet the criteria for diagnosis of diabetes. Reference: Standards of Medical Care in Diabetes 2016, [place] [employer]. Diabetes Care. 2016.39(Suppl 1). Performed By: #### 5 0190-8, 52528-4, 2275-05 #### [facility] CLIA [id number] [address] [place] [address] [place] Potassium [Moles/Vol] 4.3 mmol/L Normal 3.7-5.1 [facility] Comment on above: Order Comment: Juana duke Type: BLOOD SPECIMEN Ordering Facility: [facility] Address: [address] [place] [address] Performed By: #### 5 0190-8, 92582-7, 2275-05 #### [facility] CLIA [id number] [address] [place] [address] [place] Protein [Mass/Vol] 6.5 g/dL Normal 6.3-8.0 [facility] Comment on above: Order Comment: Juana duke Type: BLOOD SPECIMEN Ordering Facility: [facility] Address: [address] [place] [address] Performed By: #### 5 0190-8, 47962-5, 2276-4 #### [facility] CLIA [id number] [address] [place] [address] [place] Sodium [Moles/Vol] 140 mmol/L Normal 136-144 [facility] Comment on above: Order Comment: Speci men Type: BLOOD SPECIMEN Ordering Facility: [facility] Address: [address] [place] [address] Performed By: #### 5 0190-8, 81424-2, 2276-4 #### [facility] CLIA [id number] [address] [place] [address] [place] Urea nitrogen [Mass/Vol] 24 mg/dL Normal 9-24 [facility] Comment on above: Order Comment: Speci men Type: BLOOD SPECIMEN Ordering Facility: [facility] Address: [address] [place] [address] Performed By: #### 5 0190-8, 32538-7, 2276-4 #### [facility] CLIA [id number] [address] [place] [address] [place] ECG COMPLETEon 07-12-2023 Atrial Rate 69 BPM [facility] Calculated P Voltaire 68 degrees [facility] Calculated R Voltaire 29 degrees [facility] Calculated T Voltaire 42 degrees [facility] P-R Interval 172 ms [facility] QRS Duration 82 ms [facility] QT Interval 420 ms [facility] QTC Calculation (Bazett) 450 ms [facility] Ventricular Rate 69 BPM [facility] NORMAL SINUS RHYTHM NORMAL ECG Confirmed by EUNICE COYLE M.D. ([id number]) on 07/12/2023 9:12:33 PM [facility] NAME : SUNNI JACKSON PID : [id number] : 1940 Gender : Male Race : ORD : [id number] Procedure Date : Jul 12 2023 10:37:29 Edit Date : Jul 12 2023 21:12:34 Diagnosis: NORMAL SINUS RHYTHM NORMAL ECG Confirmed by EUNICE COYLE M.D. ([id number]) on 07/12/2023 9:12:33 PM Test Reason : Location : 145 : [place] Overread By : EUNICE COYLE M.D. Edited By : EUNICE COYLE M.D. Referred By : CAROLYN MARTINEZ Acquired by : santosh, [facility] ECG COMPLETE Ventricular Rate : 69 BPM Atrial Rate : 69 BPM P-R Interval : 172 ms QRS Duration : 82 ms Q-T Interval : 420 ms QTC Calculation(Bazett) : 450 ms Calculated P Voltaire : 68 degrees Calculated R Voltaire : 29 degrees Calculated T Voltaire : 42 degrees NORMAL SINUS RHYTHM NORMAL ECG Confirmed by EUNICE COYLE M.D. ([id number]) on 07/12/2023 9:12:33 PM NAME : SUNNI JACKSON PID : [id number] : 1940 Gender : Male Race : ORD : [id number] Procedure Date : Jul 12 2023 10:37:29 Edit Date : Jul 12 2023 21:12:34 Diagnosis: NORMAL SINUS RHYTHM NORMAL ECG Confirmed by EUNICE COYLE M.D. ([id number]) on 07/12/2023 9:12:33 PM Test Reason : Location : 145 : [place] Overread By : EUNICE COYLE M.D. Edited By : EUNICE COYLE M.D. Referred By : CAROLYN MARTINEZ Acquired by : santosh, Normal [facility] FERRITINon 07-12-2023 Ferritin [Mass/Vol] 151.0 ng/mL 30.3 - 5 65.7 ng/mL [facility] Ferritin SerPl-mCncon 2023 Ferritin [Mass/Vol] 151.0 ng/mL Normal 30.3-565.7 [facility] Comment on above: Order Comment: Speci men Type: BLOOD SPECIMEN Ordering Facility: [facility] Address: [address] [place] [address] Performed By: #### 5 0190-8, 59451-6, 2276-4 #### [facility] CLIA [id number] [address] [place], [place] [address] [place] Ferritin [Mass/Vol]on 2023 Interpretation and review of laboratory results Normal [facility] HISTORY PHYSICALon HISTORY PHYSICAL HNO ID: [id number] Author: CLOVIS DONIS APRN.HOME CARE SCHEDULER Service: ? Author Type: Nurse Practitioner Type: H&P Filed: 07/26/2023 07:55 Note Text: HISTORY AND PHYSICAL EXAMINATION SERVICE DATE: 07/12/2023 SERVICE TIME: 10:10 AM PRIMARY CARE PHYSICIAN: No primary care provider on file. REASON FOR VISIT: Sunni Jackson is a 83 year old male who is scheduled for ARTHRODESIS ANTERIOR DISC PREP DISCECTOMY OSTEOPHYTECTOMY AND DECOMPRESS NERVE ROOTS C' BELOW C2 ARTHRODESIS ANT DISC PREP DISCECTOMY OSTEOPHYTECTOMY DECOM S CORD/NERVE ROOTS C' BELOW C2 EACH + ANTERIOR INSTRUMENTATION 2 VERTEBRAL SEGMENTS SPINE ALLOGRAFT CERVICAL CORPECTOMY ANT. APPROACH W/ DECOMPRESSION SPINAL CORD, 1 SEGMENT at the request of Dr. Rebeca Martinez for consultation. My final recommendation will be communicated back to the requesting physician by way of shared medical record or letter. Assessment Patient has the following medical conditions which may affect mariano-operative course: Essential (primary) hypertension Assessment: Stable on medication Today BP: 156/73 Amlodipine was recently increased by PCP To take medication morning of surgery Tobacco user Assessment: Current Smoker 0.5 ppd x 50 years Carotid stenosis Assessment: History of Left Carotid Enterectomy in 2020 Follows with vascular most recent OV 10/2022 Patient has what appears to be stable claudications. He is on aspirin and Plavix. I reviewed his carotid duplex that was done recently. Patient has no significant disease in the carotid arteries that would require intervention at this point. Continue with following him up. I will see him back in 1 year with a follow-up carotid duplex and arterial Dopplers. Continue with antiplatelets therapy and statins. Anemia Assessment: stable to get updated labs COPD exacerbation (HCC) Assessment: stable following with PCP rBunilda ocampo, gave him a spacer to trial To use inhaler morning of surgery Per note on 06/21/2023 Peripheral vascular disease (HCC) Assessment: stable per Vascular OV note Patient has what appears to be stable claudications. He is on aspirin and Plavix. I reviewed his carotid duplex that was done recently. Patient has no significant disease in the carotid arteries that would require intervention at this point. Continue with following him up. I will see him back in 1 year with a follow-up carotid duplex and arterial Dopplers. Continue with antiplatelets therapy and statins. Essential (primary) hypertension Assessment: Stable on medication Today BP: 156/73 Amlodipine was recently increased by PCP To take medication morning of surgery Tobacco user Assessment: Current Smoker 0.5 ppd x 50 years Carotid stenosis Assessment: History of Left Carotid Enterectomy in 2020 Follows with vascular most recent OV 10/2022 Patient has what appears to be stable claudications. He is on aspirin and Plavix. I reviewed his carotid duplex that was done recently. Patient has no significant disease in the carotid arteries that would require intervention at this point. Continue with following him up. I will see him back in 1 year with a follow-up carotid duplex and arterial Dopplers. Continue with antiplatelets therapy and statins. Anemia Assessment: stable to get updated labs COPD exacerbation (HCC) Assessment: stable following with PCP Brunilda ocampo, gave him a spacer to trial To use inhaler morning of surgery Per note on 06/21/2023 Peripheral vascular disease (HCC) Assessment: stable per Vascular OV note Patient has what appears to be stable claudications. He is on aspirin and Plavix. I reviewed his carotid duplex that was done recently. Patient has no significant disease in the carotid arteries that would require intervention at this point. Continue with following him up. I will see him back in 1 year with a follow-up carotid duplex and arterial Dopplers. Continue with antiplatelets therapy and statins. Barragan Activity Status Index: METS: Walk indoors, such as around the house (1.75 METs) Do light work around the house, such as dusting or washing dishes (2.70 METs) Take care of self; that is eating, dressing, bathing, using the toilet (2.75 METs) Walk a block or two on level ground (2.75 METs) Do moderate work around the house, such as vacuuming, sweeping floors, or carrying in groceries (3.50 METs) Do yardwork, such as raking leaves, weeding, or pushing a power mower (4.50 METs) Climb a flight of stairs or walk up a hill (5.50 METs) Do heavy work around the house, such as scrubbing floors, lifting or moving heavy furniture (8.00 METs) DASI Score: 31.45 Patient denies any chest pain or undue shortness of breath with the above physical activity. Patient is totally dependent. Clinical Frailty Scale: 3. Well, with treated comorbid disease STOP-Bang Score: Has or is being treated for high blood pressure Patient over 50 (more content not included)... Normal [facility] Iron and Iron binding capaci ty panelon 07-12-2023 Interpretation and review of laboratory results Normal [facility] Iron [Mass/Vol] 88 ug/dL 41 - 186 ug/dL [facility] Iron binding capacity [Mass/Vol] 237 ug/dL 232 - 386 ug/dL [facility] Iron/TIBC [Molar ratio] 37.1 % 15.0 - 57.0 % [facility] Iron [Mass/Vol] 88 ug/dL Normal 41-186 [facility] Comment on above: Order Comment: Margareti leilani Type: BLOOD SPECIMEN Ordering Facility: [facility] Address: [address] [place] [address] Performed By: #### 5 0190-8, 50844-3, 2275-05 #### [facility] CLIA [id number] [address] [place] [address] [place] Iron binding capacity [Mass/Vol] 237 ug/dL Normal 232-386 [facility] Comment on above: Order Comment: Margareti leilani Type: BLOOD SPECIMEN Ordering Facility: [facility] Address: [address] [place] [address] Performed By: #### 5 0190-8, 44783-3, 2275-05 #### [facility] CLIA [id number] [address] [place] [address] [place] Iron/TIBC [Molar ratio] 37.1 % Normal 15.0-57.0 [facility] Comment on above: Order Comment: Margareti men Type: BLOOD SPECIMEN Ordering Facility: [facility] Address: [address] [place] [address] Performed By: #### 5 0190-8, 35272-4, 2275-4 #### [facility] CLIA [id number] [address] [place] [address] [id number] [place] [address] [place] No Panel Informationon 07-11 [facility] No Panel InformationOrdered By: Cata Miranda on 07-12-2023 Interpretation and review of laboratory results Normal [facility] PT panel Coag (PPP)on 2023 INR Coag (PPP) [Relative time] 1.0 {INR} 0.9 - 1.3 [facility] Comment on above: Vitamin K Antagonist (VKA) Therapeutic Range: INR 2 to 3 (Target INR of 2.5) Note: For patients treated with VKA drugs, such as warfarin, the [place] [employer] 2012 Guideline recommends a therapeutic INR range of 2 to 3 (target INR of 2.5). This recommendation includes high-risk patients with antiphospholipid syndrome with previous arterial or venous thromboembolism, current-generation mechanical or bioprosthetic aortic heart valve replacement. Note: Patients with mechanical aortic valve replacement and additional risk factors for thromboembolic events (atrial fibrillation, previous thromboembolism, LV dysfunction, hypercoagulable conditions) or an older generation mechanical AVR (i.e., ball in-Cage) or any mechanical MVR should have a INR therapeutic range of 2.5 to 3.5 (target INR of 3). Andria GH, et al. Chest 2012, 141:7S-47S Alicia RA, et al. [facility] 2017, 70: 252-289 PT Coag (PPP) [Time] 10.5 s [facility] INR Coag (PPP) [Relative time] 1.0 {INR} Normal 0.9-1.3 [facility] Comment on above: Order Comment: Speci men Type: BLOOD SPECIMEN Ordering Facility: [facility] Address: [address] [place] [address] Result Comment: Ronit min K Antagonist (VKA) Therapeutic Range: INR 2 to 3 (Target INR of 2.5) Note: For patients treated with VKA drugs, such as warfarin, the [place] [employer] 2012 Guideline recommends a therapeutic INR range of 2 to 3 (target INR of 2.5). This recommendation includes high-risk patients with antiphospholipid syndrome with previous arterial or venous thromboembolism, current-generation mechanical or bioprosthetic aortic heart valve replacement. Note: Patients with mechanical aortic valve replacement and additional risk factors for thromboembolic events (atrial fibrillation, previous thromboembolism, LV dysfunction, hypercoagulable conditions) or an older generation mechanical AVR (i.e., ball in-Cage) or any mechanical MVR should have a INR therapeutic range of 2.5 to 3.5 (target INR of 3). Andria GH, et al. Chest 2012, 141:7S-47S Alicia RA, et al. [facility] 2017, 70: 252-289 Performed By: #### 3 4528-0, 25952-6 #### [facility] CLIA [id number] [address] [place] [address] [place] PT Coag (PPP) [Time] 10.5 s Normal 9.7-13.0 [facility] Comment on above: Order Comment: Speci men Type: BLOOD SPECIMEN Ordering Facility: [facility] Address: [address] [place] [address] Performed By: #### 3 4528-0, 67025-8 #### [facility] CLIA [id number] [address] [place] [address] [place] TYPE AND SCREEN,30 DAYon ABO A Normal [facility] Comment on above: Order Comment: Juana duke Type: BLOOD SPECIMEN Ordering Facility: [facility] Address: [address] [place] [address] Performed By: #### 3 4528-0, 12135-0 #### [facility] CLIA [id number] [address] [place] [address] [place] HISTORICAL AB SCR STATUS Negative Normal [facility] Comment on above: Order Comment: Speci men Type: BLOOD SPECIMEN Ordering Facility: [facility] Address: [address] [place] [address] Performed By: #### 3 4528-0, 94902-0 #### [facility] CLIA [id number] [address] [place] [address] [place] Rh Nom (Bld) Positive Normal [facility] Comment on above: Order Comment: Juana duke Type: BLOOD SPECIMEN Ordering Facility: [facility] Address: [address] [place] [address] Performed By: #### 3 4528-0, 64584-9 #### [facility] CLIA [id number] [address] [place] [address] OF [facility] aPTT Coag (PPP) [Time]Ordere d By: Cata Miranda on 07-12-2023 Unfractionated Heparin Therapeutic Ranges: Standard Heparin Nomogram: 53 to 78 seconds (anti-Xa level of 0.3 to 0.7 U/ml) Low Dose/ACS Nomogram: 49 to 67 seconds (anti-Xa level of 0.2 to 0.5 U/ml) Stroke Treatment Nomogram: 49 to 67 seconds (anti-Xa level of 0.2 to 0.5 U/ml) Note: The APTT therapeutic range has been determined for the current lot of laboratory APTT reagent in use throughout the [facility]. [facility] aPTT PPPon 07-12-2023 aPTT Coag (PPP) [Time] 31.9 s Normal 23.0-32.4 Cl [facility] Comment on above: Order Comment: Juana duke Type: BLOOD SPECIMEN Ordering Facility: [facility] Address: [address] [place] [address] Result Comment: Samia en Plasma Aliquot Performed By: #### 3 4528-0, 57434-5 #### [facility] CLIA [id number] [address] [place] [address] [place] CNPKalpana 06-20-2023 VENITAN Telephone (SRINIVASAN) SUNNI JACKSON ([id number]) 1940 M Date Time Provider Department 06/20/23 REBECA MARTINEZ During your visit today, we recorded the following information about you: Liliam Pichardo 06/20/2023 9:50 AM Signed Received Ultrasound of the Carotid report by fax from [facility]. Scanned fax to chart for review. Allergies As of Date: 06/20/2023 (Not on File) Date Reviewed: 06/19/2023 Reviewed by: Kala Horta MA - Fully Assessed Reason for Visit: Received Outside Medical Records [[id number]] Prescriptions as of 07/24/2023 - vit A,C,T-Brmp-Cosnbs (PRESERVISION AREDS) 2,148 mcg-113 mg-45 mg-17.4mg tab Take 1 tablet by mouth daily with breakfast. - amLODIPine (NORVASC) 10 mg tablet Take 10 mg by mouth once daily. - albuterol HFA (PROVENTIL HFA, VENTOLIN HFA) 90 mcg/actuation inhaler inhale 2 puffs by mouth and INTO THE LUNGS every 6 hours if needed for wheezing - aspirin, enteric coated (ASPIRIN, ENTERIC COATED) 81 mg EC tablet Take 81 mg by mouth. - budesonide-glycopyr- formoterol (BREZTRI AEROSPHERE) 160-9-4.8 mcg/actuation HFA aerosol inhaler Inhale 2 Puffs as instructed. - lisinopril (ZESTRIL) 40 mg tablet Take 40 mg by mouth. 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 CNOVon 06-19-2023 CNOV Office Visit (NSFRVW) SUNNI JACKSON ([id number]) 1940 M Date Time Provider Department 06/19/23 9:00 AM REBECA MATRINEZ NSFRVW During your visit today, we recorded the following information about you: Temperature Pulse Blood pressure Weight 98 degrees 101/minute 178/77 85.7 kg Height 1.676 m Rebeca Martinez MD 06/19/2023 9:48 AM Signed SPINE SURGERY NEW PATIENT This is an in-person visit. PCP: No primary care provider on file. 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 Mr. Jackson is a pleasant 82-year-old gentleman is in surgery clinic with a history of shocklike sensation in bilateral upper extremity for the past 1 year. Shocklike sensation happen sporadically. Occasionally associated with neck movements. Sensation radiates up to all fingers. Mild posterior neck soreness. Denies sharp pain in upper extremity. He also noticed numbness over bilateral hand. 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 Noticed minimal imbalance while walking. Also complains of diffuse lower extremity subjective weakness. Denies frequent falls. Denies bowel or bladder dysfunction. Known hypertension. On aspirin 81 mg. Underwent left-sided carotid endarterectomy in the past. He is following with vascular surgery. Not taking regular pain medications. No recent cervical epidural injections No previous spine surgeries PRECIPITATING EVENT: None DURATION OF SYMPTOMS: Greater Than 1 Year PAIN EVALUATION No data found in the last 1 encounters. Pain Radiation: Shocklike sensation in bilateral upper extremity up to fingers Aggravating Factors: None Alleviating Factors: None Pain Ratio: Pain in the arm is greater than in the neck DERMATOMAL DISTRIBUTION: Not applicable AMBULATORY STATUS: Independent Community Distances ANTIPLATELET OR ANTICOAGULATION STATUS: Aspirin 81 mg PREVIOUS CONSERVATIVE TREATMENTS: Pain medication as needed PREVIOUS SPINAL SURGERY: None There is no problem list on file for this patient. No past medical history on file. No past surgical history on file. No family history on file. Social History Tobacco Use Smoking status: Every Day Types: Cigarettes Smokeless tobacco: Never ALLERGIES Not on File MEDICATIONS: lisinopril (ZESTRIL) 40 mg tablet Take 40 mg by mouth. montelukast (SINGULAIR) 10 mg tablet Take 10 mg by mouth. albuterol HFA (PROVENTIL HFA, VENTOLIN HFA) 90 mcg/actuation inhaler inhale 2 puffs by mouth and INTO THE LUNGS every 6 hours if needed for wheezing amLODIPine (NORVASC) 5 mg tablet Take 1 tablet by mouth every afternoon. aspirin, enteric coated (ASPIRIN, ENTERIC COATED) 81 mg EC tablet Take 81 mg by mouth. budesonide-glycopyr- formoterol (BREZTRI AEROSPHERE) 160-9-4.8 mcg/actuation HFA aerosol inhaler Inhale 2 Puffs as instructed. thiamine (VITAMIN B1) 100 mg tablet Take 100 mg by mouth every morning. NASACORT 55 mcg nasal inhaler INSTILL 2 SPRAYS INTO EACH NOSTRIL IN THE MORNING REVIEW OF SYSTEMS: PAIN ASSESSMENT: See HPI. GENERAL: Denies fever, chills malaise and weight loss. HEENT: No recent change in vision or hearing. CARDIOVASCULAR: Denies chest pain, history of A-fib, valvular disease, or pacemaker/ICD. RESPIRATORY: Denies SOB, sputum production, and hemoptysis. GI: Denies GI ulcers, inflammatory disease, or liver disease. : Denies change in frequency or urgency, kidney disease, and burning with urination. MUSCULOSKELETAL: Negative for joint pain or swelling, back pain or muscle pain. SKIN: Denies rash or itching. PSYCHOLOGICAL: Denies uncontrolled depression or anxiety. NEURO: Denies CVA, seizures, headaches. ENDOCRINE: Denies diabetes, thyroid disease. HEMATOLOGY/LYMPHOLOG Y: Denies cancer, bleeding or clotting disorders, anemia,and DVT's. ALLERGIC/IMMUNOLOGIC AL: Denies risks for infection, or recent MRSA infections. Patient Entered Questionnaires PROMIS Score Percentiles Percentiles provide an indication of how the patient's score ranks in relation to the general population. Higher percentile rankings indicate better function/quality of life. 50th percentile is the average of the general population and indicates half of respondents had a worse score. Depression Screening: PHQ-9 Self-Harm (Item 9) response options: 0 Not at all 1 Several days 2 More than half the days 3 Nearly every day PHQ-9 Levels: 0-4 No to mild depression 5-9 Mild depression 10-14 Moderate depression 15-19 Moderately severe depression 20-27 Severe depression OBJECTIVE: PHYSICAL EXAM BP 178/77 Pulse 101 Temp 36.7 ?C (98 ?F) Ht 167.6 cm (5' 6 ) Wt 85.7 kg (189 lb) SpO2 99% (more content not included)... [facility] XR CERVICAL 4V AP/LAT/FLX/EX Ton 06-19-2023 XR CERVICAL 4V AP/LAT/FLX/EXT * * *Final Report* * * DATE OF EXAM: Jun 19 2023 10:19AM FVX [id number] - XR CERVICAL 4V AP/LAT/FLX/EXT / PROCEDURE REASON: Cervical disc disorder with myelopathy of mid-cervical region * * * * Physician Interpretation * * * * EXAMINATION: XR CERVICAL 4V AP/LAT/FLX/EXT CLINICAL HISTORY: Cervical disc disorder Technique: XR CERVICAL 4V AP/LAT/FLX/EXT -- with 4 views on 4 images Comparison: None RESULT: Vertebral body heights are maintained without acute fracture. Mild retrolisthesis of C4 on C5 and C5 on C6. No significant change with flexion or extension Moderate-severe degenerative changes at the C4-C5, C5-C6, and C6-C7 levels with disc height loss and osteophyte formation. Facet arthropathy. IMPRESSION: 1. No acute fracture 2. Degenerative changes. Change Management Administrator: GREER Transcribe Date/Time: Jun 21 2023 3:35P Dictated by : DAKOTA CORONA MD This examination was interpreted and the report reviewed and electronically signed by: DAKOTA CORONA MD on Jun 21 2023 3:38PM EST [id number] CN [facility] ALL CBC WITH AUTO DIFFon BASOPHILS ABSOLUTE AUTO 0.1 [facility] Basophils/100 WBC (Bld) 0.5 % 0.2 - 2.0 % [facility] Eosinophils/100 WBC (Bld) 1.7 % 0.9 - 7.0 % [facility] Erythrocyte distribution width (RBC) [Ratio] 14.9 % 11.0 - 15.0 % [facility] Hematocrit (Bld) [Volume fraction] 37.2 % Low 42.0 - 54.0 % [facility] Hemoglobin (Bld) [Mass/Vol] 12.0 g/dL Low 14.0 - 18.0 g/dL [facility] IMMATURE GRANULOCYTES ABS AUTO 0.25 High [facility] Immature granulocytes/100 WBC (Bld) 2.1 % High 0.0 - 0.5 % [facility] Interpretation and review of laboratory results Abnormal [facility] LYMPHOCYTES ABSOLUTE AUTO 2.5 [facility] Lymphocytes/100 WBC (Bld) 20.7 % 20.5 - 60.0 % [facility] MCH (RBC) [Entitic mass] 29.9 pg 25.9 - 34.0 pg [facility] MCHC (RBC) [Mass/Vol] 32.3 g/dL 29.9 - 35.2 g/dL [facility] MCV (RBC) [Entitic vol] 92.5 fL 80.0 - 94.0 fL [facility] MONOCYTES ABSOLUTE AUTO 1.0 High [facility] Monocytes/100 WBC (Bld) 8.6 % 1.7 - 12.0 % [facility] NEUTROPHILS ABSOLUTE AUTO 7.8 High [facility] Neutrophils/100 WBC (Bld) 66.4 % 43.0 - 75.0 % [facility] Platelet mean volume (Bld) [Entitic vol] 11.1 fL 9.5 - 13.5 fL [facility] TBH EO # 0.2 [facility] PLT 236 [facility] RBC 4.02 Low [facility] WBC 11.8 High [facility] US THYROIDon 07-26-2022 US THYROID EXAMINATION: US [...] by: ARTEM MIRANDA Date: 2022-07-26 09:12 Normal [facility] PROF CHEM 8 (BAS METB)on Anion gap [Moles/Vol] 11.5 mmol/L Normal [facility] Comment on above: Performed By: #### B MP #### [facility] [address] [place] [address] Dr. Bethany Killian Calcium [Mass/Vol] 8.5 mg/dL Normal 8.5-10.1 [facility] Comment on above: Performed By: #### B MP #### [facility] [address] [place] [address] Dr. Bethany Killian Chloride [Moles/Vol] 109 mmol/L Critically high 98-107 [facility] Comment on above: Performed By: #### B MP #### [facility] [address] [place] [address] Dr. Bethany Killian CO2 [Moles/Vol] 26.2 mmol/L Normal 21.0-32.0 [facility] Comment on above: Performed By: #### B MP #### [facility] [address] [address] [address] Bethany Killian Creatinine [Mass/Vol] 1.06 mg/dL Normal 0.70-1.30 [facility] Comment on above: Performed By: #### B MP #### [facility] [address] [place] [address] Dr. Bethany Killian EGFR-AF PAPUA NEW GUINEAN >60 Normal >=60 [facility] Comment on above: Performed By: #### B MP #### [facility] [address] [place] [address] Dr. Bethany Killian EGFR-NON AF PAPUA NEW GUINEAN >60 Normal >=60 [facility] Comment on above: Performed By: #### B MP #### [facility] [address] [address] [address] Bethany Killian Glucose [Mass/Vol] 80 mg/dL Normal 74-106 [facility] Comment on above: Performed By: #### B MP #### [facility] [address] [address] [address] Bethany Killian Potassium [Moles/Vol] 4.7 mmol/L Normal 3.5-5.1 [facility] Comment on above: Performed By: #### B MP #### [facility] [address] [address] [address] Bethany Killian Sodium [Moles/Vol] 142 mmol/L Normal 136-145 [facility] Comment on above: Performed By: #### B MP #### [facility] [address] [address] [address] Bethany Killian Urea nitrogen [Mass/Vol] 26.0 mg/dL Critically high 7.0-18.0 [facility] Comment on above: Performed By: #### B MP #### [facility] [address] [address] [address] Bethany Killian Urea nitrogen/Creatinine [Mass ratio] 24.5 mg/mg Normal [facility] Comment on above: Performed By: #### B MP #### [facility] [address] [address] [address] CSPINE WO CONon [...] by: Lam GORDILLO Date: 2022-06-11 19:49 Normal [facility] CT HEAD WO CONon 06-11-2022 CT HEAD [...] by: CHRISTEN ARREDONDO Date: 2022-06-11 19:24 Normal [facility] XR CHEST 2 Von 05-25-2022 XR CHEST [...] SAVAGE OATES Date: 2022-05-25 07:20 Normal [facility] PROF CHEM 8 (BAS METB)on Anion gap [Moles/Vol] 12.2 mmol/L Normal [facility] Comment on above: Performed By: #### B MP ####[facility] [address] [address]Dr. Bethany Killian Calcium [Mass/Vol] 8.7 mg/dL Normal 8.5-10.1 [facility] Comment on above: Performed By: #### B MP ####[facility] [address] [address]Dr. Bethany Killian Chloride [Moles/Vol] 106 mmol/L Normal 98-107 [facility] Comment on above: Performed By: #### B MP ####[facility] [address] [id number]. Bethany Killian CO2 [Moles/Vol] 26.0 mmol/L Normal 21.0-32.0 [facility] Comment on above: Performed By: #### B MP ####[facility] [address] [id number]. Bethany Killian Creatinine [Mass/Vol] 1.04 mg/dL Normal 0.70-1.30 [facility] Comment on above: Performed By: #### B MP ####[facility] [address] [address]Dr. Felicitawalker Constantin EGFR-AF PAPUA NEW GUINEAN >60 Normal >=60 [facility] Comment on above: Performed By: #### B MP ####[facility] [address] [address]Dr. Felicitawalker Constantin EGFR-NON AF PAPUA NEW GUINEAN >60 Normal >=60 [facility] Comment on above: Performed By: #### B MP ####[facility] [address] [address]Dr. Bethany Killian Glucose [Mass/Vol] 85 mg/dL Normal 74-106 [facility] Comment on above: Performed By: #### B MP ####[facility] [address] [place], [place] [address]Dr. Bethany Killian Potassium [Moles/Vol] 4.2 mmol/L Normal 3.5-5.1 [facility] Comment on above: Performed By: #### B MP ####[facility] [address] [place], [place] [address]Dr. Bethany Killian Sodium [Moles/Vol] 140 mmol/L Normal 136-145 [facility] Comment on above: Performed By: #### B MP ####[facility] [address] [address]Dr. Bethany Killian Urea nitrogen [Mass/Vol] 29.0 mg/dL Critically high 7.0-18.0 [facility] Comment on above: Performed By: #### B MP ####[facility] [address] [address]Dr. Bethany Killian Urea nitrogen/Creatinine [Mass ratio] 27.9 mg/mg Normal [facility] Comment on above: Performed By: #### B MP ####[facility] [address] [address]Dr. Bethany Killian CBC AUTO DIFFon 02-24-2022 BASO # 0.0 103/ul Normal 0.0-0.1 [facility] Comment on above: Performed By: #### C BC #### [facility] [address] [address] [address] Bethany Killian Basophils/100 WBC (Bld) 0.3 % Normal 0.2-2.0 [facility] Comment on above: Performed By: #### C BC #### [facility] [address] [address] [address] Bethany Killian EO # 0.2 103/ul Normal 0.0-0.7 [facility] Comment on above: Performed By: #### C BC #### [facility] [address] [address] [address] Bethany Killian Eosinophils/100 WBC (Bld) 1.8 % Normal 0.9-7.0 [facility] Comment on above: Performed By: #### C BC #### [facility] [address] [address] [address] Bethany Killian Erythrocyte distribution width (RBC) [Ratio] 14.8 % Normal 11.0-15.0 [facility] Comment on above: Performed By: #### C BC #### [facility] [address] [address] [address] Bethany Killian Hematocrit (Bld) [Volume fraction] 38.3 % Critically low 42.0-54.0 [facility] Comment on above: Performed By: #### C BC #### [facility] [address] [address] [address] Bethany Killian Hemoglobin (Bld) [Mass/Vol] 12.6 g/dL Critically low 14.0-18.0 [facility] Comment on above: Performed By: #### C BC #### [facility] [address] [address] [address] Bethany Killian IG # 0.05 10e3/ul Critically high 0.00-0.03 [facility] Comment on above: Performed By: #### C BC #### [facility] [address] [address] [address] Bethany Killian IG % 0.6 % Critically high 0.0-0.5 [facility] Comment on above: Performed By: #### C BC #### [facility] [address] [address] [address] Bethany Killian LYMPH # 1.8 103/ul Normal 1.2-3.8 [facility] Comment on above: Performed By: #### C BC #### [facility] [address] [place] [address] Dr. Bethany Killian Lymphocytes/100 WBC (Bld) 20.2 % Critically low 20.5-60.0 [facility] Comment on above: Performed By: #### C BC #### [facility] [address] [place] [address] Dr. Bethany Killian MANUAL DIFF REQ NO Normal [facility] Comment on above: Performed By: #### C BC #### [facility] [address] [place] [address] Dr. Bethany Killian MCH (RBC) [Entitic mass] 29.9 pg Normal 25.9-34.0 [facility] Comment on above: Performed By: #### C BC #### [facility] [address] [place] [address] Dr. Bethany Killian MCHC (RBC) [Mass/Vol] 32.9 g/dL Normal 29.9-35.2 [facility] Comment on above: Performed By: #### C BC #### [facility] [address] [place] [address] Dr. Bethany Killian MCV (RBC) [Entitic vol] 90.8 fL Normal 80.0-94.0 [facility] Comment on above: Performed By: #### C BC #### [facility] [address] [place] [address] Dr. Bethany Killian MONO # 0.9 103/ul Critically high 0.3-0.8 [facility] Comment on above: Performed By: #### C BC #### [facility] [address] [place] [address] Dr. Bethany Killian Monocytes/100 WBC (Bld) 9.9 % Normal 1.7-12.0 [facility] Comment on above: Performed By: #### C BC #### [facility] [address] [place] [address] Dr. Bethany Killian NEUT # 5.9 103/ul Normal 1.4-6.5 [facility] Comment on above: Performed By: #### C BC #### [facility] [address] [place] [address] Dr. Bethany Killian Neutrophils/100 WBC (Bld) 67.2 % Normal 43.0-75.0 [facility] Comment on above: Performed By: #### C BC #### [facility] [address] [place] [address] Dr. Bethany Killian Platelet mean volume (Bld) [Entitic vol] 11.8 fL Normal 9.5-13.5 [facility] Comment on above: Performed By: #### C BC #### [facility] [address] [place] [address] Dr. Bethany Killian PLT 242 103/ul Normal 150-450 [facility] Comment on above: Performed By: #### C BC #### [facility] [address] [place] [address] Dr. Bethany Killian RBC 4.22 106/ul Critically low 4.70-6.10 [facility] Comment on above: Performed By: #### C BC #### [facility] [address] [place] [address] Dr. Bethany Killian WBC 8.8 103/ul Normal 4.0-11.0 [facility] Comment on above: Performed By: #### C BC #### [facility] [address] [place] [address] Dr. Bethany Killian FERRITINon 02-24-2022 Ferritin [Mass/Vol] 156.0 ng/mL Normal 26.0-388.0 [facility] Comment on above: Performed By: #### I BRAYAN, FERR #### [facility] [address] [place] [address] Dr. Bethany Killian IRONon 02-24-2022 Iron [Mass/Vol] 99.0 ug/dL Normal 65.0-175.0 [facility] Comment on above: Performed By: #### I BRAYAN, FERR #### [facility] [address] [address] [address] Bethany Killian PROF CHEM 8 (BAS METB)on Anion gap [Moles/Vol] 12.9 mmol/L Normal [facility] Comment on above: Result Comment: Prev iously reported as: 0.3 On 02/24/2022 13:42 By DM9 Performed By: #### B MP ####[facility] [address] [address]Dr. Bethany Killian Calcium [Mass/Vol] 8.9 mg/dL Normal 8.5-10.1 [facility] Comment on above: Performed By: #### B MP ####[facility] [address] [address]DrBhavin Killian Chloride [Moles/Vol] 102 mmol/L Normal 98-107 [facility] Comment on above: Result Comment: Prev iously reported as: 108 On 02/24/2022 13:42 By DM9 Performed By: #### B MP ####[facility] [address] [place], [place] [address]DrBhavin Killian CO2 [Moles/Vol] 27.4 mmol/L Normal 21.0-32.0 [facility] Comment on above: Result Comment: Prev iously reported as: 27.8 On 02/24/2022 13:42 By DM9 Performed By: #### B MP ####[facility] [address] [address]DrBhavin Killian Creatinine [Mass/Vol] 1.21 mg/dL Normal 0.70-1.30 [facility] Comment on above: Performed By: #### B MP ####[facility] [address] [address]DrBhavin Killian EGFR-AF PAPUA NEW GUINEAN >60 Normal >=60 [facility] Comment on above: Performed By: #### B MP ####[facility] [address] [address]DrBhavin Killian EGFR-NON AF PAPUA NEW GUINEAN 58 mL/min/1.73m2 Critically low >=60 [facility] Comment on above: Performed By: #### B MP ####[facility] [address] [address]DrBhavin Killian Glucose [Mass/Vol] 98 mg/dL Normal 74-106 [facility] Comment on above: Performed By: #### B MP ####[facility] [address] [address]DrBhavin Killian Potassium [Moles/Vol] 4.3 mmol/L Normal 3.5-5.1 [facility] Comment on above: Result Comment: Prev iously reported as: 4.1 On 02/24/2022 13:42 By DM9 Performed By: #### B MP ####[facility] [address] [address]Dr. Bethany Killian Sodium [Moles/Vol] 138 mmol/L Normal 136-145 [facility] Comment on above: Result Comment: Prev iously reported as: 132 On 02/24/2022 13:42 By DM9 Performed By: #### B MP ####[facility] [address] [address]Dr. Bethany Killian Urea nitrogen [Mass/Vol] 37.0 mg/dL Critically high 7.0-18.0 [facility] Comment on above: Performed By: #### B MP ####[facility] [address] [address]DrBhavin Killian Urea nitrogen/Creatinine [Mass ratio] 30.6 mg/mg Normal [facility] Comment on above: Performed By: #### B MP ####[facility] [address] [id number]. Bethany Killian CBC AUTO DIFFon 01-02-2022 BASO # 0.0 103/ul Normal 0.0-0.1 [facility] Comment on above: Performed By: #### C BC #### [facility] [address] [address] [address] Bethany Killian Basophils/100 WBC (Bld) 0.5 % Normal 0.2-2.0 [facility] Comment on above: Performed By: #### C BC #### [facility] [address] [place] [address] Dr. Bethany Killian EO # 0.1 103/ul Normal 0.0-0.7 [facility] Comment on above: Performed By: #### C BC #### [facility] [address] [place] [address] Dr. Bethany Killian Eosinophils/100 WBC (Bld) 1.7 % Normal 0.9-7.0 [facility] Comment on above: Performed By: #### C BC #### [facility] [address] [place] [address] Dr. Bethany Killian Erythrocyte distribution width (RBC) [Ratio] 14.6 % Normal 11.0-15.0 [facility] Comment on above: Performed By: #### C BC #### [facility] [address] [place] [address] Dr. Bethany Killian Hematocrit (Bld) [Volume fraction] 37.8 % Critically low 42.0-54.0 [facility] Comment on above: Performed By: #### C BC #### [facility] [address] [place] [address] Dr. Bethany Killian Hemoglobin (Bld) [Mass/Vol] 12.0 g/dL Critically low 14.0-18.0 [facility] Comment on above: Performed By: #### C BC #### [facility] [address] [place] [address] Dr. Bethany Killian IG # 0.04 10e3/ul Critically high 0.00-0.03 [facility] Comment on above: Performed By: #### C BC #### [facility] [address] [place] [address] Dr. Bethany Killian IG % 0.5 % Normal 0.0-0.5 [facility] Comment on above: Performed By: #### C BC #### [facility] [address] [place] [address] Dr. Bethany Killian LYMPH # 1.2 103/ul Normal 1.2-3.8 [facility] Comment on above: Performed By: #### C BC #### [facility] [address] [place] [address] Dr. Bethany Killian Lymphocytes/100 WBC (Bld) 15.1 % Critically low 20.5-60.0 [facility] Comment on above: Performed By: #### C BC #### [facility] [address] [place] [address] Dr. Bethany Killian MANUAL DIFF REQ NO Normal [facility] Comment on above: Performed By: #### C BC #### [facility] [address] [place] [address] Dr. Bethany Killian MCH (RBC) [Entitic mass] 29.8 pg Normal 25.9-34.0 [facility] Comment on above: Performed By: #### C BC #### [facility] [address] [place] [address] Dr. Bethany Killian MCHC (RBC) [Mass/Vol] 31.7 g/dL Normal 29.9-35.2 [facility] Comment on above: Performed By: #### C BC #### [facility] [address] [place] [address] Dr. Bethany Killian MCV (RBC) [Entitic vol] 93.8 fL Normal 80.0-94.0 [facility] Comment on above: Performed By: #### C BC #### [facility] [address] [place] [address] Dr. Bethany Killian MONO # 0.8 103/ul Normal 0.3-0.8 [facility] Comment on above: Performed By: #### C BC #### [facility] [address] [place] [address] Dr. Bethany Killian Monocytes/100 WBC (Bld) 10.3 % Normal 1.7-12.0 [facility] Comment on above: Performed By: #### C BC #### [facility] [address] [place] [address] Dr. Bethany Killian NEUT # 5.8 103/ul Normal 1.4-6.5 [facility] Comment on above: Performed By: #### C BC #### [facility] [address] [place], [place] [address] Dr. Bethany Killian Neutrophils/100 WBC (Bld) 71.9 % Normal 43.0-75.0 [facility] Comment on above: Performed By: #### C BC #### [facility] [address] [address] [address] Bethany Killian Platelet mean volume (Bld) [Entitic vol] 12.2 fL Normal 9.5-13.5 [facility] Comment on above: Performed By: #### C BC #### [facility] [address] [address] [address] Bethany Killian PLT 241 103/ul Normal 150-450 [facility] Comment on above: Performed By: #### C BC #### [facility] [address] [address] [address] Bethany Killian RBC 4.03 106/ul Critically low 4.70-6.10 [facility] Comment on above: Performed By: #### C BC #### [facility] [address] [place], [place] [address] Dr. Bethany Killian WBC 8.1 103/ul Normal 4.0-11.0 [facility] Comment on above: Performed By: #### C BC #### [facility] [id number] Bethany Killian FREE T4on 01-02-2022 Free T4 [Mass/Vol] 1.00 ng/dL Normal 0.76-1.46 [facility] Comment on above: Performed By: #### F T4, PSASC ####[facility] [address] [id number]. Bethany Killian PROF 14(COMP METB)on 022 Albumin [Mass/Vol] 3.1 g/dL Critically low 3.4-5.0 [facility] Comment on above: Performed By: #### C MP, TSH ####[facility] [address] [id number]. Bethany Killian Albumin/Globulin [Mass ratio] 0.9 {ratio} Normal [facility] Comment on above: Performed By: #### C MP, TSH ####[facility] [address] [address]Dr. Bethany Constantin ALP [Catalytic activity/Vol] 78 U/L Normal 46-116 [facility] Comment on above: Performed By: #### C MP, TSH ####[facility] [address] [address]Dr. Bethany Killian ALT [Catalytic activity/Vol] 19 U/L Normal 16-63 [facility] Comment on above: Performed By: #### C MP, TSH ####[facility] [address] [address]Dr. Bethany Killian Anion gap [Moles/Vol] 9.0 mmol/L Normal [facility] Comment on above: Performed By: #### C MP, TSH ####[facility] [address] [place], [place] [address]Dr. Bethany Killian AST [Catalytic activity/Vol] 12 U/L Critically low 15-37 [facility] Comment on above: Performed By: #### C MP, TSH ####[facility] [address] [place], [place] [address]Dr. Bethany Killian Bilirubin [Mass/Vol] 0.4 mg/dL Normal 0.2-1.0 [facility] Comment on above: Performed By: #### C MP, TSH ####[facility] [address] [place], [place] [address]Dr. Bethany Killian Calcium [Mass/Vol] 8.6 mg/dL Normal 8.5-10.1 [facility] Comment on above: Performed By: #### C MP, TSH ####[facility] [address] [address]Dr. Bethany Killian Chloride [Moles/Vol] 105 mmol/L Normal 98-107 [facility] Comment on above: Performed By: #### C MP, TSH ####[facility] [address] [place], [place] [address]Dr. Bethany Killian CO2 [Moles/Vol] 28.6 mmol/L Normal 21.0-32.0 [facility] Comment on above: Performed By: #### C MP, TSH ####[facility] [address] [address]Dr. Felicitawalker Killian Creatinine [Mass/Vol] 0.99 mg/dL Normal 0.70-1.30 [facility] Comment on above: Performed By: #### C MP, TSH ####[facility] [address] [id number]. Bethany Constantin EGFR-AF PAPUA NEW GUINEAN >60 Normal >=60 [facility] Comment on above: Performed By: #### C MP, TSH ####[facility] [address] [address]Dr. Bethany Killian EGFR-NON AF PAPUA NEW GUINEAN >60 Normal >=60 [facility] Comment on above: Performed By: #### C MP, TSH ####[facility] [address] [address]Dr. Bethany Killian Globulin (S) [Mass/Vol] 3.5 g/dL Normal [facility] Comment on above: Performed By: #### C MP, TSH ####[facility] [address] [place], [place] [address]Dr. Bethany Killian Glucose [Mass/Vol] 85 mg/dL Normal 74-106 [facility] Comment on above: Performed By: #### C MP, TSH ####[facility] [address] [address]Dr. Bethany Killian Potassium [Moles/Vol] 4.6 mmol/L Normal 3.5-5.1 [facility] Comment on above: Performed By: #### C MP, TSH ####[facility] [address] [address]Dr. Bethany Killian Protein [Mass/Vol] 6.6 g/dL Normal 6.4-8.2 [facility] Comment on above: Performed By: #### C MP, TSH ####[facility] [address] [address]DrBhavin Killian Sodium [Moles/Vol] 138 mmol/L Normal 136-145 [facility] Comment on above: Performed By: #### C SALEEM, TSH ####[facility] [address] [address]DrBhavin Killian Urea nitrogen [Mass/Vol] 30.0 mg/dL Critically high 7.0-18.0 [facility] Comment on above: Performed By: #### C SALEEM, TSH ####[facility] [address] [address]DrBhavin Killian Urea nitrogen/Creatinine [Mass ratio] 30.3 mg/mg Normal [facility] Comment on above: Performed By: #### C SALEEM, TSH ####[facility] [address] [address]Dr. Bethany Killian TSHon 01-02-2022 TSH 1.411 uIU/mL Normal 0.358-3.740 [facility] Comment on above: Performed By: #### C SALEEM, TSH ####[facility] [address] [place] [address]DrBhavin Killian UA RANDOM W/MICROSCOPICon BACTERIA NONE SEEN Normal NONE SEEN [facility] Comment on above: Performed By: #### U AMIC #### [facility] [address] [place] [address] Dr. Bethany Killian Bilirubin Ql (U) Negative Normal NEGATIVE [facility] Comment on above: Performed By: #### U AMIC #### [facility] [address] [address] [address] Bethany Killian CAST NONE SEEN Normal NONE SEEN [facility] Comment on above: Performed By: #### U AMIC #### [facility] [address] [address] [address] Bethany Killian Clarity (U) CLEAR Normal CLEAR [facility] Comment on above: Performed By: #### U AMIC #### [facility] [address] [place] [address] Dr. Bethany Killian Color (U) LT. YELLOW Normal YELLOW [facility] Comment on above: Performed By: #### U AMIC #### [facility] [address] [address] [address] Bethany Killian Crystals LM Nom (Urine sed) NONE SEEN Normal NONE SEEN [facility] Comment on above: Performed By: #### U AMIC #### [facility] [address] [address] [address] Bethany Killian Epithelial cells LM Ql (Urine sed) NONE SEEN Normal NONE SEEN /RARE [facility] Comment on above: Performed By: #### U AMIC #### [facility] [address] [address] [address] Bethany Killian Glucose Ql (U) Negative Normal NEGATIVE [facility] Comment on above: Performed By: #### U AMIC #### [facility] [address] [place] [address] Dr. Bethany Killian Hemoglobin Ql (U) Negative Normal NEGATIVE [facility] Comment on above: Performed By: #### U AMIC #### [facility] [address] [address] [address] Bethany Killian Ketones Ql (U) Negative Normal NEGATIVE [facility] Comment on above: Performed By: #### U AMIC #### [facility] [address] [address] [address] Bethany Killian LEUKOCYTES Negative Normal NEGATIVE [facility] Comment on above: Performed By: #### U AMIC #### [facility] [address] [address] [address] Bethany Killian MUCOUS NONE SEEN Normal NONE SEEN [facility] Comment on above: Performed By: #### U AMIC #### [facility] [address] [address] [address] Bethany Killian Nitrite Ql (U) Negative Normal NEGATIVE [facility] Comment on above: Performed By: #### U AMIC #### [facility] [address] [place] [address] Dr. Bethany Killian pH (U) 6.5 [pH] Normal 5-9 [facility] Comment on above: Performed By: #### U AMIC #### [facility] [address] [place] [address] Dr. Bethany Killian RBC 0-2 Normal 0-2 [facility] Comment on above: Performed By: #### U AMIC #### [facility] [address] [place] [address] Dr. Bethany Killian SPEC GRAVITY 1.020 Normal 1.005-<=1.025 [facility] Comment on above: Performed By: #### U AMIC #### [facility] [address] [place] [address] Dr. Bethany Killian UA PROTEIN Negative Normal NEGATIVE/ TRACE [facility] Comment on above: Performed By: #### U AMIC #### [facility] [address] [place] [address] Dr. Bethany Killian Urobilinogen Qn (U) 0.2 {Ian'U}/dL Normal 0.2 - 1. 0 [facility] Comment on above: Performed By: #### U AMIC #### [facility] [address] [place] [address] Dr. Bethany Killian WBC 0-2 Abnormal NONE SEEN [facility] Comment on above: Performed By: #### U AMIC #### [facility] [address] [place] [address] Dr. Bethany Killian US CAROTID ART BILon [...] by: SAVAGE OATES Date: 2021-11-01 07:08 Normal [facility] PATIENT: SUNNI JACKSON LOCATION: [address] BILL#: [id number] : 42 AGE: SEX: M ORDERED BY: DARNELL PELLETIER: [facility] COLLECTED: 10/19/16 00:00ANTIBIOTICS AT LORNA.: RECEIVED : 10/19/16 21:47SITE: R E S U L T S FUNGAL SMEAR FINAL 10/20/16 10:08 FLUORESCENT FUNGAL STAIN: NEGATIVE FUNGAL CULTURE/, MIS FINAL 11/06/16 10:46 NO FUNGI ISOLATED. Normal [facility] MISCELLANEOUS CULT./SM.BACT. on 10-19-2016 MISCELLANEOUS CULT./SM.BACT. PATIENT: SUNNI JACKSON LOCATION: [address] BILL#: [id number] : 42 AGE: SEX: M ORDERED BY: DARNELL PELLETIER: [facility] COLLECTED: 10/19/16 00:00ANTIBIOTICS AT LORNA.: RECEIVED : 10/19/16 22:24SITE: R E S U L T S GRAM STAIN FINAL 10/20/16 00:59 NO GRANULOCYTES OR ORGANISMS SEEN. MISCELLANEOUS CULT./SM.BACT. FINAL 10/22/16 11:43 2+ MIXED SKIN PAVITHRA Normal [facility] Vital Signs Date Time Vital Sign Value Performing Clinician Faci lity 10-19-2023 11:060400 Body height 168.91 cm [facility] 10-19-2023 11:060400 Body mass index (BMI) [Ratio] 28.6 kg/m2 [facility] 10-19-2023 11:060400 Body temperature 97.7 [degF] [facility] 10-19-2023 11:06040 Body weight 81.7 kg [facility] 10-19-2023 11:06-0400 Diastolic blood pressure 81 mm[Hg] [facility] 10-19-2023 11:06-0400 Heart rate 68 /min [facility] 10-19-2023 11:06-0400 Respiratory rate 16 /min [facility] 10-19-2023 11:06-0400 SaO2% (BldA) [Mass fraction] 95 % [facility] 10-19-2023 11:06-0400 Systolic blood pressure 132 mm[Hg] [facility] 07-12-2023 10:20-0400 Body height 167.6 cm Pacc 2 Work Phone: [facility] 07-12-2023 10:20-0400 Body mass index (BMI) [Ratio] 29.53 kg/m2 Pacc 2 Work Phone: [facility] 07-12-2023 10:20-0400 Body temperature 97.39 [degF] Pacc 2 Work Phone: [facility] 07-12-2023 10:20-0400 Body weight 83 kg Pacc 2 Work Phone: [facility] 07-12-2023 10:20-0400 Diastolic blood pressure 73 mm[Hg] Pacc 2 Work Phone: [facility] 07-12-2023 10:20-0400 Heart rate 75 /min Pacc 2 Work Phone: [facility] 07-12-2023 10:20-0400 Respiratory rate 16 /min Pacc 2 Work Phone: [facility] 07-12-2023 10:20-0400 SaO2% (BldA) [Mass fraction] 99 % Pacc 2 Work Phone: [facility] 07-12-2023 10:20-0400 Systolic blood pressure 156 mm[Hg] Pacc 2 Work Phone: [facility] 06-19-2023 08:23-0400 Body height 167.6 cm Rebeca Martinez MD Work Phone: [facility] 06-19-2023 08:23-0400 Body mass index (BMI) [Ratio] 30.51 kg/m2 Rebeca Martinez MD Work Phone: [facility] 06-19-2023 08:23-0400 Body temperature 98.01 [degF] Rebeca Martinez MD Work Phone: [facility] 06-19-2023 08:23-0400 Body weight 85.73 kg Rebeca Martinez MD Work Phone: [facility] 06-19-2023 08:23-0400 Diastolic blood pressure 77 mm[Hg] Rebeca Martinez MD Work Phone: [facility] 06-19-2023 08:23-0400 Heart rate 101 /min Rebeca Martinez MD Work Phone: [facility] 06-19-2023 08:23-0400 SaO2% (BldA) [Mass fraction] 99 % Rebeca Martinez MD Work Phone: [facility] 06-19-2023 08:23-0400 Systolic blood pressure 178 mm[Hg] Rebeca Martinez MD Work Phone: [facility] Encounters Encounter Date Encounter Type Care Provider Facility Start: 11-08-2023 End: 11-08-2023 ambulatory JOVANY OVALLE Not Available Start: 10-19-2023 End: 10-19-2023 ambulatory [facility] Work Phone: Start: 10-19-2023 End: 10-19-2023 Patient encounter procedure [facility] Work Phone: Start: 10-18-2023 End: 10-18-2023 Telephone encounter Rebeca Martinez MD Work Phone: Neurosurgery Comment on above: Received Outside Med [facility] Records Start: 09-03-2023 Telephone encounter Berny Martinez MD Work Phone: Neurology Comment on above: [employer] Start: 08-27-2023 Telephone encounter Berny Martinez MD Work Phone: Neurology Comment on above: Patient Question Start: 08-23-2023 End: 08-23-2023 ambulatory REBECA MARTINEZ Facility:[facility] Start: 08-23-2023 End: 08-23-2023 Patient encounter procedure Rebeca Martinez MD Work Phone: [facility] Comment on above: Cervical vertebral f usion (Primary Dx) Start: 07-30-2023 End: 07-30-2023 ambulatory DEVI JESS YUZ Facility:[facility] Start: 07-24-2023 End: 07-24-2023 ambulatory DEVI AICHHOLZ Not Available Start: 07-16-2023 End: 07-16-2023 ambulatory DEVI AICHHOLZ Not Available Start: 07-13-2023 Telephone encounter Clovis Donis APRN.CNP Work Phone: Ambulatory Surgery Comment on above: Medication Problem Start: 07-12-2023 End: 07-12-2023 Admission to establishment [facility] Work Phone: Pre Anesthesia Start: 07-12-2023 End: 07-12-2023 ambulatory CLOVIS DONIS Facility:[facility] Start: 07-12-2023 End: 07-12-2023 Anesthesia consultation [facility] Work Phone: Pre Anesthesia Comment on above: Pre-op examination ( Primary Dx); Chronic obstructive pulmonary disease, unspecified COPD type (HCC); Primary hypertension; Chronic kidney disease, unspecified CKD stage; Essential (primary) hypertension; Tobacco user; Stenosis of left carotid artery; Anemia, unspecified type; COPD exacerbation (HCC); Peripheral vascular disease (HCC) Start: 07-12-2023 Encounter for other preprocedural examination REBECA MARTINEZ [facility] Start: 07-12-2023 End: 07-12-2023 Preprocedural examination done P[facility] 2 Work Phone: [facility] Work Phone: Start: 06-21-2023 End: 06-21-2023 ambulatory DEVI MONTEIRO Not Available Start: 06-20-2023 Telephone encounter Berny Martinez MD Work Phone: Neurology Comment on above: Received Outside Med ical Records Start: 06-19-2023 Admission to [facility] Rebeca Martinez MD Work Phone: Neurosurgery Start: 06-19-2023 End: 06-19-2023 ambulatory Rebeca Martinez MD Work Phone: Neurosurgery Start: 06-19-2023 Patient encounter status Satya Martinez MD Work Phone: [facility] Start: 06-19-2023 End: 06-19-2023 Subsequent hospital visit by physician Marit[facility] Radiology Comment on above: 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] Start: 06-19-2023 End: 06-19-2023 Patient encounter procedure Rebeca Martinez MD Work Phone: Neurosurgery Comment on above: 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 (Primary Dx); Cervical cord myelomalacia (HCC) Start: 05-14-2023 End: 05-14-2023 ambulatory DEVI VLADIMIRHHOLZ Not Available Start: 05-03-2023 End: 05-03-2023 ambulatory JOVANY OVALLE Not Available Start: 04-18-2023 End: 04-18-2023 ambulatory DEVI AICHHOLZ Not Available Start: 04-10-2023 Clinisync Result Encounter 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 DIAGNOSTIC TECHNOLOGIST Work Phone: [facility] Unsolicited Start: 04-10-2023 Clinisync Result Encounter 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 DIAGNOSTIC TECHNOLOGIST Work Phone: [facility] Unsolicited Start: 04-03-2023 End: 04-03-2023 ambulatory DEVI TANVIR Not Available Start: 03-26-2023 End: 03-26-2023 ambulatory DELMY MENA Not Available Start: 07-25-2022 End: 07-26-2022 ambulatory VENITA MCCORMACKLizz MONTEIRO Facility:[facility] Start: 07-20-2022 End: 07-21-2022 ambulatory VENITA MONTEIRO Facility:[facility] Start: 06-11-2022 End: 06-11-[address] BART AL Facility:[facility] Start: 05-24-2022 End: 05-25-[address] SAVAGE OATES Facility:[facility] Start: 03-16-2022 End: 03-17-2022 ambulatory VENITA MONTEIRO Facility:[facility] Start: 02-24-2022 End: 02-25-2022 ambulatory VENITA MONTEIRO Facility:[facility] Start: 01-02-2022 End: 01-03-2022 ambulatory VENITA MONTEIRO Facility:[facility] Start: 10-29-2021 End: 10-30-[address] SAVAGE OATES Facility:[facility] Start: 07-27-2020 End: 10-31-2022 Patient encounter status 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 DIAGNOSTIC TECHNOLOGIST Work Phone: [facility] Procedures Date Procedure Procedure Detail Performing Clinician Start: 07-12-2023 Antibody screen DIXON MARTINEZ Comment on above: Order Comment: Speci men Type: BLOOD SPECIMEN Ordering Facility: [facility] Address: [address] [place] [address] Performed By: #### 3 [id number], [id number] #### [facility] CLIA [id number] [address] [place] [address] [place] Start: 07-12-2023 Ecg routine ecg w/le ast 12 lds i&r only Clovis Donis APRN.HOME CARE SCHEDULER Work Phone: Start: 04-10-2023 ALL CBC WITH AUTO DIFF Devilizz Monteiro DIAGNOSTIC TECHNOLOGIST Work Phone: Start: 01-02-2022 PSA screening VENITA MONTEIRO Comment on above: Performed By: #### F T4, PSASC ####[facility] [address] [place], [place] [address]PtBhavin Bethany Constantin Plan of Treatment Date Care Activity Detail Author Start: 02-17-2029 Urine microalbumin profile DTaP,Tdap,Td Vaccine (3 - Td or Tdap) [facility] Start: 08-07-2026 Diabetes Screening Diabetes Screenin [facility] Start: 07-11-2026 Diabetes Screening Diabetes Screenin [facility] Start: 02-21-2024 End: 02-21-2024 Patient encounter procedure [facility] Radiology General Comment on above: Cervical vertebral f usion [M43.22] 6 MONTH FOLLOW UP Start: 10-28-2023 Influenza vaccination Influenza Vacc ine (#1) [facility] Start: 08-25-2023 [facility] Start: 08-23-2023 End: 08-23-2023 Patient encounter procedure 08/23/2023 11:40 AM EDT Office Visit [facility] [address] [place] [address] [place] [address] [place] [address] post op- 6/10 ARTHRODESIS ANTERIOR DISC PREP DISCECTOMY OSTEOPHYTECTOMY & DECOMPRESS NERVE ROOTS C' BELOW C2 [facility] Comment on above: post op- 6/10 ARTHRO DESIS ANTERIOR DISC PREP DISCECTOMY OSTEOPHYTECTOMY & DECOMPRESS NERVE ROOTS C' BELOW C2 Start: 08-06-2023 End: 08-06-2023 Admission to same day surgery center 08/06/2023 1:00 PM EDT - 08/06/2023 4:25 PM EDT Surgery [facility] Operating Room [address] [address] [place] [address] [place] [address] ARTHRODESIS ANTERIOR DISC PREP DISCECTOMY OSTEOPHYTECTOMY & DECOMPRESS NERVE ROOTS C' BELOW C2 [facility] Operating Room Comment on above: ARTHRODESIS ANTERIOR DISC PREP DISCECTOMY OSTEOPHYTECTOMY & DECOMPRESS NERVE ROOTS C' BELOW C2 Start: 08-06-2023 End: 08-06-2023 Allograft for spine surgery only structural [facility] Cervical disc disorder with myelopathy of mid-cervical region 08/06/2023 1:00 PM EDT [facility] Start: 08-06-2023 End: 08-06-2023 Anterior instrumentation 2-3 vertebral segments ANTERIOR INSTRUMENTATION 2 VERTEBRAL SEGMENTS Cervical disc disorder with myelopathy of mid-cervical region 08/06/2023 1:00 PM EDT [facility] Start: 08-06-2023 End: 08-06-2023 Arthrd ant interbody decompress cervical belw c2 ARTHRODESIS ANTERIOR DISC PREP DISCECTOMY OSTEOPHYTECTOMY & DECOMPRESS NERVE ROOTS C' BELOW C2 Cervical disc disorder with myelopathy of mid-cervical region 08/06/2023 1:00 PM EDT [facility] Start: 08-06-2023 End: 08-06-2023 Arthrd ant interdy cervcl belw c2 ea addl ntrspc ARTHRODESIS ANT DISC PREP DISCECTOMY OSTEOPHYTECTOMY DECOM S CORD/NERVE ROOTS C' BELOW C2 EACH + Cervical disc disorder with myelopathy of mid-cervical region 08/06/2023 1:00 PM EDT [facility] Start: 08-06-2023 Subsequent hospital visit by physician 08/06/2023 1:00 PM EDT Hospital Encounter [facility] Operating Room [address] [address] [place] [address] [place] [address] 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.020] [facility] Operating Room Comment on above: 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] Start: 08-06-2023 End: 08-06-2023 Vertebral corpectomy ant dcmprn cervical 1 seg CERVICAL CORPECTOMY ANT. APPROACH W/ DECOMPRESSION SPINAL CORD, 1 SEGMENT Cervical disc disorder with myelopathy of mid-cervical region 08/06/2023 1:00 PM EDT [facility] Start: 07-30-2023 End: 07-30-2023 Patient encounter procedure 07/30/2023 9:00 AM EDT Office [place] [address] SURGICAL REGISTRATION APPT [phone] [facility] Comment on above: SURGICAL REGISTRATIO N APPT [phone] Start: 07-12-2023 End: 10-11-2023 TYPE AND SCREEN,30 DAY [facility] Work Phone: Comment on above: Expected: 07/12/2023 , Expires: 10/11/2023 Start: 07-12-2023 End: 07-12-2023 Admission to establishment 07/12/2023 11:00 AM EDT PAT Pre [facility] [address] [place] [address] 2, [facility] [address] [place] [address] Pre admission testing surgery 08/05 Pre Anesthesia Comment on above: Pre admission testin g surgery 08/05 Start: 05-03-2023 End: 05-03-2023 Patient encounter procedure 05/03/2023 9:15 AM EST Office Visit [facility] [address] [place] [id number] Jovany Ovalle S, DO [address] [place] [address] [facility] Start: 04-24-2023 Covid-19 Vaccine () Covid-19 Vaccine () [facility] Start: 02-26-2023 Advance Directive Discussion Advance Directive Discussion [facility] Start: 02-26-2023 Behavioral Health Screening Behavioral Health Screening [facility] Start: 2001 RSV Vaccine (1 - 1-d ose 60+ series) RSV Vaccine (1 - 1-dose 60+ series) [facility] Start: 07-09-1959 Anxiety Screening Anxiety Screening [facility] Start: 07-09-1959 Depression Screening Depression Scre ening [facility] Start: 07-09-1959 Spirometry Spirometry [facility] ECG COMPLETE ECG COMPLETE ECG 07/12/2023 10:37 AM EDT [facility] End: 07-18-2024 XR CERV OTHER 4V AP/LAT/FLX/EXT XR CERV OTHER 4V AP/LAT/FLX/EXT Radiology Routine Cervical disc disorder with myelopathy of mid-cervical region 1 Occurrences starting 06/19/2023 until 07/18/2024 [facility] Work Phone: Comment on above: 1 Occurrences starti ng 06/19/2023 until 07/18/2024 XR CERV OTHER 4V AP/LAT/FLX/EXT XR CERV OTHER 4V AP/LAT/FLX/EXT Radiology Routine Cervical disc disorder with myelopathy of mid-cervical region 06/19/2023 10:23 AM EDT [facility] End: 09-21-2024 XR Cervical spine AP and Lateral XR CERV GENERAL 2V AP/LAT Radiology Routine Cervical vertebral fusion 1 Occurrences starting 08/23/2023 until 09/21/2024 [facility] Work Phone: Comment on above: 1 Occurrences starti ng 08/23/2023 until 09/21/2024 Immunizations Immunization Date Immunization Notes Care Provider [facility] 12-22-2022 influenza virus vacc ine, unspecified formulation Rebeca Martinez MD Work Phone: [facility] 08-15-2022 Pneumococcal Conjuga te PCV 20 Devi Aichholz DIAGNOSTIC TECHNOLOGIST Work Phone: [facility] 12-26-2021 Influenza, High-dose Seasonal, Quadrivalent, Preservative Free Devi Aichholz DIAGNOSTIC TECHNOLOGIST Work Phone: [facility] 12-21-2020 influenza, injectabl e, quadrivalent, preservative free Devi Aichholz DIAGNOSTIC TECHNOLOGIST Work Phone: [facility] 12-01-2020 Influenza, Seasonal, Quadrivalent, Adjuvanted Devi Aichholz DIAGNOSTIC TECHNOLOGIST Work Phone: [facility] 11-16-2019 influenza, high dose seasonal, preservative-free Devi Aichholz DIAGNOSTIC TECHNOLOGIST Work Phone: [facility] 09-06-2019 hepatitis A vaccine, adult dosage Devi Aichholz DIAGNOSTIC TECHNOLOGIST Work Phone: [facility] 07-04-2019 zoster vaccine recombinant Devi Aichholz DIAGNOSTIC TECHNOLOGIST Work Phone: [facility] 04-08-2019 zoster vaccine recombinant Devi Aichholz DIAGNOSTIC TECHNOLOGIST Work Phone: [facility] 02-17-2019 hepatitis A vaccine, adult dosage Devi Aichholz DIAGNOSTIC TECHNOLOGIST Work Phone: [facility] 02-17-2019 tetanus toxoid, redu renan diphtheria toxoid, and acellular pertussis vaccine, adsorbed Devi Aichholz DIAGNOSTIC TECHNOLOGIST Work Phone: [facility] 12-03-2018 Seasonal trivalent influenza vaccine, adjuvanted, preservative free Devi Aichholz DIAGNOSTIC TECHNOLOGIST Work Phone: [facility] 08-14-2016 tetanus toxoid, redu renan diphtheria toxoid, and acellular pertussis vaccine, adsorbed Devi Aichholz DIAGNOSTIC TECHNOLOGIST Work Phone: [facility] 12-13-2015 pneumococcal polysaccharide vaccine, 23 valent Devi Aichholz DIAGNOSTIC TECHNOLOGIST Work Phone: [facility] 12-08-2015 influenza, injectabl e, quadrivalent, preservative free Devi Aichholz DIAGNOSTIC TECHNOLOGIST Work Phone: [facility] 12-09-2014 influenza, injectabl e, quadrivalent, preservative free Devi Aichholz DIAGNOSTIC TECHNOLOGIST Work Phone: [facility] 10-07-2014 pneumococcal conjuga te vaccine, 13 valent Devi Aichholz DIAGNOSTIC TECHNOLOGIST Work Phone: [facility] 08-11-2014 pneumococcal conjuga te vaccine, 13 valent Devi Aichholz DIAGNOSTIC TECHNOLOGIST Work Phone: [facility] Payers Date Payer Category Payer Private Health Insurance [facility] AARP SUPPLEMENT [id number] 2023-Present [phone] [address] [place] [address] [facility] [id number] 2022 Unknown AARP AARP [id number] 2022-Present [address] [place] [address] [id number] 2006 Medicare [id number] 1959 Medicare [id number] 1959 Unknown [id number] 1941 Unknown [id number] 2.16.840.1.393018.3.579.2 .593 1941 Unknown [id number] 2.16.840.1.440001.3.579.2 .593 1941 Unknown [id number] 2.16.840.1.203041.3.579.2 .593 1941 Unknown [id number] 2.16.840.1.870066.3.579.2 .593 1941 Unknown [id number] 2.16.840.1.693421.3.579.2 .593 1941 Unknown [id number] 2.16.840.1.072484.3.579.2 .593 1941 Unknown [id number] 2.16.840.1.487797.3.579.2 .593 1941 Unknown [id number] 2.16.840.1.111847.3.579.2 .593 1941 Unknown [id number] 2.16.840.1.186997.3.579.2 .1259 1941 Unknown [id number] 2.16.840.1.288297.3.579.2 .1259 1941 Unknown [id number] 2.16.840.1.789410.3.579.2 .1259 1941 Unknown [id number] 2.16.840.1.369269.3.579.2 .1259 1941 Unknown [id number] 2.16.840.1.360862.3.579.2 .9 1941 Unknown [id number] 2.16.840.1.124731.3.579.2 .9 1941 Unknown [id number] 2.16.840.1.273066.3.579.2 .9 1941 Unknown [id number] 2.16.840.1.262672.3.579.2 .9 1941 Unknown [id number] 2.16.840.1.791913.3.579.2 .1259 Social History Date Type Detail Facility Start: 02-26-1957 End: 07-12-2023 Tobacco smoking status PAIS Smokes tobacco daily [facility] Start: 02-26-1957 History of tobacco use Cigarette Smo ker [facility] Start: 09-19-2022 End: 06-19-2023 Cigarettes smoked current (pack per day) - Reported 0.5 [facility] Start: 09-19-2022 End: 07-12-2023 Tobacco use and exposure Smokeless tobacco non-user [facility] Start: 03-26-2023 Alcohol intake Lifetime non-d ajd (finding) [facility] Start: 03-26-2023 End: 06-19-2023 Tobacco use panel [facility] Start: 09-19-2022 Tobacco Comment 11-20 cigarettes/day [facility] Start: 09-19-2022 Alcohol Comment Caffeine 3-4 cups pe r day [facility] Start: 1940 Sex Assigned At Male N [facility] Start: 08-30-2022 Gender identity Identifies as male gender (finding) [facility] National Score (1-10 0), lower number is lower risk 63 [facility] Start: 1940 Sex Assigned At Not on file [facility] Start: 07-12-2023 End: 08-23-2023 Alcohol intake Ex-drinker (finding) [facility] Medical Equipment Procedure Code Equipment Code Equipment Origin al Text Equipment Identifier Dates Spacer Avs 4d 7m m Spinal Bone Plug - [id number] Start: 08-06-2023 Spacer Avs 4d 7m m Spinal Bone Plug - [id number] Start: 08-06-2023 Plate Aviator Titanium 28x17.4x2.5mm Bone Level 2 Automatic Lock System - [id number] Start: 08-06-2023 Screw Aviator 4m m Titanium 14mm Bone Variable Angle Self Drill Nonsterile - [id number] Start: 08-06-2023 Clinical Notes 05-17-2023 to 10-18-2023 Telephone Encounter - Jerry George RN - 10/18/2023 11:41 AM EDTTelephone Encounter - Jerry George RN - 10/18/2023 11:41 AM EDTTelephone Encounter - Jerry George RN - 09/03/2023 2:49 PM EDT Note Date & Type Note Facility 10-18-2023 Telephone encounter Note noted [facility] 10-18-2023 Miscellaneous Notes noted Received outside medical records from [facility], discharge notes, in chart for review. documented in this encounter [facility] 10-18-2023 Telephone encounter Note Received outside medical records from [facility], discharge notes, in chart for review. [facility] 09-03-2023 Telephone encounter Note Printed for review & signature [facility] 09-03-2023 Miscellaneous Notes Printed for review & signature [facility] PT Initial Exam report scanned to [facility] for review and completion documented in this encounter [facility] 09-03-2023 Telephone encounter Note [facility] PT Initial Exam report scanned to [facility] for review and completion [facility] 08-27-2023 Miscellaneous Notes Called and spoke with patient. Answered all questions. Patient stated he was unaware that PT was ordered for him. Wants to complete PT at [facility]. PT fax number [phone]. Faxed to number with confirmation fax. Pt phoned asking if there were any restrictions he should follow. Please call and advise Pt phone [phone] documented in this encounter [facility] 08-27-2023 Telephone encounter Note Called and spoke with patient. Answered all questions. Patient stated he was unaware that PT was ordered for him. Wants to complete PT at [facility]. PT fax number [phone]. Faxed to number with confirmation fax. [facility] 08-27-2023 Telephone encounter Note Pt phoned asking if there were any restrictions he should follow. Please call and advise Pt phone [phone] [facility] 08-23-2023 Note HNO ID: [id number] Author: REBECA MARTINEZ MD Service: ? Author Type: Physician Type: Progress Notes Filed: 08/23/2023 11:42 Note Text: SPINE SURGERY FOLLOW UP This is an in-person visit. SERVICE DATE: 08/23/2023 SURGERY DATE: 08/06/2023 Sunni Jackson is a pleasant 89-year-old gentleman is here in spine surgery clinic for 2 weeks postoperative follow-up visit. He underwent a C4-5, C5-6 anterior cervical discectomy, allograft and instrumented fusion on 08/06/2023. Prior to surgery he was complaining of shocklike sensation in bilateral upper extremity for a year. He also noticed diffuse sensory disturbance up to fingers. 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 Since surgery his shocklike sensation is significantly improved. Numbness is improving. Imbalance is improving. He notices swallowing difficulty after surgery which is significantly improved with the steroid. He was also evaluated with a barium swallow during postoperative time. Still has minimal swallowing problem for big pills. Denies drainage from the incision. Denies hoarseness of voice. Denies fever PAIN EVALUATION No data found in the last 1 encounters. ANTIPLATELET OR ANTICOAGULATION STATUS: No Patient Entered Questionnaires PROMIS Score Percentiles Percentiles provide an indication of how the patient's score ranks in relation to the general population. Higher percentile rankings indicate better function/quality of life. 50th percentile is the average of the general population and indicates half of respondents had a worse score. Depression Screening: PHQ-9 Self-Harm (Item 9) response options: 0 Not at all 1 Several days 2 More than half the days 3 Nearly every day PHQ-9 Levels: 0-4 No to mild depression 5-9 Mild depression 10-14 Moderate depression 15-19 Moderately severe depression 20-27 Severe depression PHYSICAL EXAM: There were no vitals taken for this visit. GENERAL APPEARANCE: Well nourished, well developed, and no apparent distress. NEURO PSYCH: Patient oriented to person, place, and time. Mood pleasant. Benign affect. MUSCULOSKELETAL VISUAL INSPECTION CERVICAL: Anterior cervical incision is healing well. No signs of infection. THORACIC: WNL LUMBAR: WNL MOTOR: 5/5 in all muscle groups. SENSORY: Normal sensory exam GAIT: Stable gait. REFLEXES: +2 to bilateral U/L extremities. PROPRIOCEPTION: Normal. LONG TRACT SIGNS: No clonus. No Hoffmans. STRAIGHT LEG TEST: Ipsilateral: Negative. Contralateral: Negative. L'HERMITTES SIGN: Negative. SPURLING'S TEST: Not tested. DATA REVIEW [facility] records independently reviewed Images independently reviewed with the patient ASSESSMENT/PLAN Sunni Jackson is a pleasant 89-year-old gentleman is here in spine surgery clinic for 2 weeks postoperative follow-up visit. He underwent a C4-5, C5-6 anterior cervical discectomy, allograft and instrumented fusion on 08/06/2023. Prior to surgery he was complaining of shocklike sensation in bilateral upper extremity for a year. He also noticed diffuse sensory disturbance up to fingers. 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 Since surgery his shocklike sensation is significantly improved. Numbness is improving. Imbalance is improving. He notices swallowing difficulty after surgery which is significantly improved with the steroid. He was also evaluated with a barium swallow during postoperative time. Still has minimal swallowing problem for big pills. Denies drainage from the incision. Denies hoarseness of voice. Denies fever Examination showed well-healing anterior cervical incision, no signs of infection. No motor weakness. Stable gait. Discussed clinical finding. Recommended physical therapy, which is ordered. Recommended to increase his activities as tolerated, avoid lifting weight more than 15 to 20 pounds for another 4 weeks. Follow-up in spine surgery clinic at 6 months with x-ray cervical spine. X-ray cervical spine ordered for follow-up visit. The majority of the visit was spent counseling and/or coordinating care for the patient. The patient was counseled regarding shocklike sensation in upper extremity, cervical spondylosis, cervical myelopathy, cervical discectomy and fusion, swallowing difficulty, neck exercises, physical therapy. Total face to face time was 20 minutes. SIGNATURE: Rebeca Martinez MD PATIENT NAME: Sunni Jackson DATE: August 23, 2023 TIME: 11:32 AM PAGER: [facility] 08-23-2023 History of Presen t illness Narrative SPINE SURGERY FOLLOW UP This is an in-person visit. SERVICE DATE: 08/23/2023 SURGERY DATE: 08/06/2023 Sunni Jackson is a pleasant 89-year-old gentleman is here in spine surgery clinic for 2 weeks postoperative follow-up visit. He underwent a C4-5, C5-6 anterior cervical discectomy, allograft and instrumented fusion on 08/06/2023. Prior to surgery he was complaining of shocklike sensation in bilateral upper extremity for a year. He also noticed diffuse sensory disturbance up to fingers. 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 Since surgery his shocklike sensation is significantly improved. Numbness is improving. Imbalance is improving. He notices swallowing difficulty after surgery which is significantly improved with the steroid. He was also evaluated with a barium swallow during postoperative time. Still has minimal swallowing problem for big pills. Denies drainage from the incision. Denies hoarseness of voice. Denies fever PAIN EVALUATION No data found in the last 1 encounters. ANTIPLATELET OR ANTICOAGULATION STATUS: No Patient Entered Questionnaires PROMIS Score Percentiles Percentiles provide an indication of how the patient's score ranks in relation to the general population. Higher percentile rankings indicate better function/quality of life. 50th percentile is the average of the general population and indicates half of respondents had a worse score. Depression Screening: PHQ-9 Self-Harm (Item 9) response options: 0 Not at all 1 Several days 2 More than half the days 3 Nearly every day PHQ-9 Levels: 0-4 No to mild depression 5-9 Mild depression 10-14 Moderate depression 15-19 Moderately severe depression 20-27 Severe depression PHYSICAL EXAM: There were no vitals taken for this visit. GENERAL APPEARANCE: Well nourished, well developed, and no apparent distress. NEURO PSYCH: Patient oriented to person, place, and time. Mood pleasant. Benign affect. MUSCULOSKELETAL VISUAL INSPECTION CERVICAL: Anterior cervical incision is healing well. No signs of infection. THORACIC: WNL LUMBAR: WNL MOTOR: 5/5 in all muscle groups. SENSORY: Normal sensory exam GAIT: Stable gait. REFLEXES: +2 to bilateral U/L extremities. PROPRIOCEPTION: Normal. LONG TRACT SIGNS: No clonus. No Hoffmans. STRAIGHT LEG TEST: Ipsilateral: Negative. Contralateral: Negative. L'HERMITTES SIGN: Negative. SPURLING'S TEST: Not tested. DATA REVIEW [facility] records independently reviewed Images independently reviewed with the patient ASSESSMENT/PLAN Sunni Jackson is a pleasant 89-year-old gentleman is here in spine surgery clinic for 2 weeks postoperative follow-up visit. He underwent a C4-5, C5-6 anterior cervical discectomy, allograft and instrumented fusion on 08/06/2023. Prior to surgery he was complaining of shocklike sensation in bilateral upper extremity for a year. He also noticed diffuse sensory disturbance up to fingers. 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 Since surgery his shocklike sensation is significantly improved. Numbness is improving. Imbalance is improving. He notices swallowing difficulty after surgery which is significantly improved with the steroid. He was also evaluated with a barium swallow during postoperative time. Still has minimal swallowing problem for big pills. Denies drainage from the incision. Denies hoarseness of voice. Denies fever Examination showed well-healing anterior cervical incision, no signs of infection. No motor weakness. Stable gait. Discussed clinical finding. Recommended physical therapy, which is ordered. Recommended to increase his activities as tolerated, avoid lifting weight more than 15 to 20 pounds for another 4 weeks. Follow-up in spine surgery clinic at 6 months with x-ray cervical spine. X-ray cervical spine ordered for follow-up visit. The majority of the visit was spent counseling and/or coordinating care for the patient. The patient was counseled regarding shocklike sensation in upper extremity, cervical spondylosis, cervical myelopathy, cervical discectomy and fusion, swallowing difficulty, neck exercises, physical therapy. Total face to face time was 20 minutes. SIGNATURE: Rebeca Martinez MD PATIENT NAME: Sunni Jackson DATE: August 23, 2023 TIME: 11:32 AM PAGER: documented in this encounter [facility] 07-13-2023 Telephone encounter Note Patient was seen 07/11 in [facility] regarding upcoming surgery C4-5, C5-6 ACDF / C5 corpectomy scheduled on 08/05. Patient is currently on ASA for left carotid endarterectomy, he follows with Vascular and carotids are stable at this time. He was recently taken off of Plavix, would you prefer he go off of ASA for surgery, or is patient ok to stay on ASA 81 mg for surgery. Thank you Clovis Donis DIAGNOSTIC TECHNOLOGIST-C [facility] 07-13-2023 Miscellaneous Notes Patient was seen 07/11 in [facility] regarding upcoming surgery C4-5, C5-6 ACDF / C5 corpectomy scheduled on 08/05. Patient is currently on ASA for left carotid endarterectomy, he follows with [facility]ascular and carotids are stable at this time. He was recently taken off of Plavix, would you prefer he go off of ASA for surgery, or is patient ok to stay on ASA 81 mg for surgery. Thank you Clovis Donis DIAGNOSTIC TECHNOLOGISTLondonC documented in this encounter [facility] 07-12-2023 History and physical note Images from the original note were not included. HISTORY AND PHYSICAL EXAMINATION SERVICE DATE: 07/12/2023 SERVICE TIME: 10:10 AM PRIMARY CARE PHYSICIAN: No primary care provider on file. REASON FOR VISIT: Sunni Jackson is a 83 year old male who is scheduled for ARTHRODESIS ANTERIOR DISC PREP DISCECTOMY OSTEOPHYTECTOMY & DECOMPRESS NERVE ROOTS C' BELOW C2 ARTHRODESIS ANT DISC PREP DISCECTOMY OSTEOPHYTECTOMY DECOM S CORD/NERVE ROOTS C' BELOW C2 EACH + ANTERIOR INSTRUMENTATION 2 VERTEBRAL SEGMENTS SPINE ALLOGRAFT CERVICAL CORPECTOMY ANT. APPROACH W/ DECOMPRESSION SPINAL CORD, 1 SEGMENT at the request of Dr. Rebcea Martinez for consultation. My final recommendation will be communicated back to the requesting physician by way of shared medical record or letter. Assessment Patient has the following medical conditions which may affect mariano-operative course: Essential (primary) hypertension Assessment: Stable on medication Today BP: 156/73 Amlodipine was recently increased by PCP To take medication morning of surgery Tobacco user Assessment: Current Smoker 0.5 ppd x 50 years Carotid stenosis Assessment: History of Left Carotid Enterectomy in 2020 Follows with vascular most recent OV 10/2022 Patient has what appears to be stable claudications. He is on aspirin and Plavix. I reviewed his carotid duplex that was done recently. Patient has no significant disease in the carotid arteries that would require intervention at this point. Continue with following him up. I will see him back in 1 year with a follow-up carotid duplex and arterial Dopplers. Continue with antiplatelets therapy and statins. Anemia Assessment: stable to get updated labs COPD exacerbation (HCC) Assessment: stable following with PCP Continue terrence, gave him a spacer to trial To use inhaler morning of surgery Per note on 06/21/2023 Peripheral vascular disease (HCC) Assessment: stable per Vascular OV note Patient has what appears to be stable claudications. He is on aspirin and Plavix. I reviewed his carotid duplex that was done recently. Patient has no significant disease in the carotid arteries that would require intervention at this point. Continue with following him up. I will see him back in 1 year with a follow-up carotid duplex and arterial Dopplers. Continue with antiplatelets therapy and statins. Essential (primary) hypertension Assessment: Stable on medication Today BP: 156/73 Amlodipine was recently increased by PCP To take medication morning of surgery Tobacco user Assessment: Current Smoker 0.5 ppd x 50 years Carotid stenosis Assessment: History of Left Carotid Enterectomy in 2020 Follows with vascular most recent OV 10/2022 Patient has what appears to be stable claudications. He is on aspirin and Plavix. I reviewed his carotid duplex that was done recently. Patient has no significant disease in the carotid arteries that would require intervention at this point. Continue with following him up. I will see him back in 1 year with a follow-up carotid duplex and arterial Dopplers. Continue with antiplatelets therapy and statins. Anemia Assessment: stable to get updated labs COPD exacerbation (HCC) Assessment: stable following with PCP Continue terrence, gave him a spacer to trial To use inhaler morning of surgery Per note on 06/21/2023 Peripheral vascular disease (HCC) Assessment: stable per [facility] OV note Patient has what appears to be stable claudications. He is on aspirin and Plavix. I reviewed his carotid duplex that was done recently. Patient has no significant disease in the carotid arteries that would require intervention at this point. Continue with following him up. I will see him back in 1 year with a follow-up carotid duplex and arterial Dopplers. Continue with antiplatelets therapy and statins. Barragan Activity Status Index: METS: Walk indoors, such as around the house (1.75 METs) Do light work around the house, such as dusting or washing dishes (2.70 METs) Take care of self; that is eating, dressing, bathing, using the toilet (2.75 METs) Walk a block or two on level ground (2.75 METs) Do moderate work around the house, such as vacuuming, sweeping floors, or carrying in groceries (3.50 METs) Do yardwork, such as raking leaves, weeding, or pushing a power mower (4.50 METs) Climb a flight of stairs or walk up a hill (5.50 METs) Do heavy work around the house, such as scrubbing floors, lifting or moving heavy furniture (8.00 METs) DASI Score: 31.45 Patient denies any chest pain or undue shortness of breath with the above physical activity. Patient is totally dependent. Clinical Frailty Scale: 3. Well, with treated comorbid disease STOP-Bang Score: Has or is being treated for high blood pressure Patient over 50 years old Male patient Denies snoring loudly Denies feeling tired, fatigued, or sleepy during the daytime Has not been observed to stop breathing or choking/gasping during sleep BMI less than or equal to 35 kg/m^2 Does not have a large neck STOP-Bang Score: 3 [id number] Score: Age: >=75 Sex: male CHF history: No Hypertension history: Yes Stroke/TIA/thromboembolism history: No Vascular disease history: Yes Diabetes history: No [id number] Score: 4 ARISCAT Score: Age: >80 Preoperative SpO2: >=96% Preoperative anemia: Yes Duration of surgery: >3 hrs Emergency procedure: No ARISCAT Score: ANESTHESIA FINDINGS: Intubation History: No history of difficult intubation. No abnormal airway history Significant Anesthesia Considerations: none Airway History: No history of difficult airway No abnormal airway history I - PHYSICAL EVALUATION AIRWAY Patient intubated: No. Tracheostomy tube not present Mallampati: III. TM distance: >3 FB. Neck ROM: full ROM without neurological symptoms. Mouth opening: adequate. Short neck: no. Thick neck: no Duran present: no Lip Bite Test: II Microretrognathia/Micronagthia/R ecessed Chin: No DENTAL Dentures, upper: complete. Dentures, lower: complete. II - ANESTHESIA PLAN Anesthetic plan additional comments: *[facility]/TCI - anesthesia choice. Beta Usama Monitoring Plan Post Procedure Analgesic Plan Prepared for surgery: This patient is optimally prepared for surgery pending LABS and EKG. CONSULTS: Patient does not require consults for optimization at this time. The Following Tests/Procedures Have Been Initiated: Orders Placed This Encounter Comprehensive Metabolic Panel Standing Status: Future Standing Expiration Date: 10/11/2023 Complete Blood Count and Differential Standing Status: Future Standing Expiration Date: 10/11/2023 Iron and TIBC Standing Status: Future Standing Expiration Date: 10/11/2023 Ferritin Standing Status: Future Standing Expiration Date: 10/11/2023 PTT Standing Status: Future Standing Expiration Date: 10/11/2023 Prothrombin Time Standing Status: Future Standing Expiration Date: 10/11/2023 Confirm Blood Type Standing Status: Future Standing Expiration Date: 10/11/2023 Order Specific Question: Did Blood Bank direct you to place this order: Answer: No - Presurgical Workflow Type and Screen, 30 day Standing Status: Future Standing Expiration Date: 10/11/2023 vit A,C,J-Lkjm-Cryion (PRESERVISION AREDS) 2,148 mcg-113 mg-45 mg-17.4mg tab Sig: Take 1 tablet by mouth daily with breakfast. amLODIPine (NORVASC) 10 mg tablet Sig: Take 10 mg by mouth once daily. ECG (IN OFFICE) Planned Anesthetic: Per anesthesia choice Subjective CHIEF COMPLAINT: bilateral upper extremity shocklike sensations HPI: 82-year-old gentleman is in surgery clinic with a history of shocklike sensation in bilateral upper extremity for the past 1 year. Shocklike sensation happen sporadically. Occasionally associated with neck movements. Sensation radiates up to all fingers. Mild posterior neck soreness. Denies sharp pain in upper extremity. He also noticed numbness over bilateral hand. 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 Noticed minimal imbalance while walking. Also complains of diffuse lower extremity subjective weakness. Denies frequent falls. Denies bowel or bladder dysfunction. PAST MEDICAL HISTORY Diagnosis Date Carotid stenosis COPD (chronic obstructive pulmonary disease) (HCC) Hypertension PAST SURGICAL HISTORY Procedure Laterality Date CAROTID ENDARTERECTOMY Left 2020 EAR SURGERY HX 1989 cysts removed from ear EAR SURGERY HX 2016 MASTOIDECTOMY x2 TYPANOPLASTY W/OTOENDOSCOPES FAMILY HISTORY Problem Relation Age of Onset Prostate Cancer Father Hyperlipidemia Father Heart Attack Father Diabetes Brother Heart Attack Brother SOCIAL HISTORY: Social History Tobacco Use Smoking status: Every Day Packs/day: .5 Types: Cigarettes Start date: 1957 Smokeless tobacco: Never Substance Use Topics Alcohol use: Not Currently Drug use: Not Currently Prior to Admission medications as of 07/12/23 1024 Medication Sig Last Dose Taking vit A,C,M-Lavc-Bwfnti (PRESERVISION AREDS) 2,148 mcg-113 mg-45 mg-17.4mg tab Take 1 tablet by mouth daily with breakfast. Yes amLODIPine (NORVASC) 10 mg tablet Take 10 mg by mouth once daily. Yes albuterol HFA (PROVENTIL HFA, VENTOLIN HFA) 90 mcg/actuation inhaler inhale 2 puffs by mouth and INTO THE LUNGS every 6 hours if needed for wheezing Yes aspirin, enteric coated (ASPIRIN, ENTERIC COATED) 81 mg EC tablet Take 81 mg by mouth. Yes zkmsgrlxpf-asbndepj-arhlldstua (BREZTRI AEROSPHERE) 160-9-4.8 mcg/actuation HFA aerosol inhaler Inhale 2 Puffs as instructed. Yes lisinopril (ZESTRIL) 40 mg tablet Take 40 mg by mouth. Yes mupirocin (BACTROBAN) 2 % ointment Apply 1/2 ointment with a cotton swab in each nostril 2x daily for five days preop Yes No medication comments found. ALLERGIES Allergen Reactions Neosporin [Benzalko* Rash Blisters/scarring on skin. Covid Immunization Dates Overdue - Covid-19 Vaccine (2022- season) Overdue since 04/24/2023 12/22/2022 Imm Admin: COVID-19 vaccine, age 12+ yr, season (PFIZER-BIONTECH) 12/30/2021 Imm Admin: COVID-19 vaccine, age 12+ yr, bivalent (PFIZER-BIONTECH) 09/13/2021 Imm Admin: COVID-19 original vaccine, age 12+ yr, monovalent (Awareness Card-[employer] - LOUISE TOP) 02/12/2021 Imm Admin: COVID-19 original vaccine, age 12+ yr, monovalent (PFIZER-BIONTECH - PURPLE TOP) 05/13/2020 Imm Admin: COVID-19 original vaccine, age 12+ yr, monovalent ([employer] - PURPLE TOP) Only the first 5 history entries have been loaded, but more history exists. REVIEW OF SYSTEMS: PAIN ASSESSMENT: Pain Pain Location: Generalized Description: Other: See comment ( shocking feeling in fingertips, feet, leg weakness. ) Duration Amount of Time: 1 Duration Units: Years Frequency: Continuous Intervention/Comfort measure: Declined General: No weight loss, malaise or fevers. Neuro: No history of TIA's, stroke, BUSINESS SERVICES ANALYST tumor, impaired sensorium, hemiplegia, paraplegia or quadraplegia. No neurological symptoms or problems. Respiratory: Positive for Moderate COPD, Daily bronchodilator use for previous 3 months, Tobacco Use Current Smoker 0.5 ppd , Negative for No history of current cough or dyspnea, or pneumonia in the past 6 weeks. No history of respiratory/pulmonary symptoms or problems Cardiovascular: Positive for: HLD, Hypertension + History of Carotid Stenosis s/p LeftCarotid Enterectomy no history of angina, CHF, [place], cardiac surgery or stents. Denies rest pain, gangrene or revascularization/amputation for PVD GI: No history of GI symptoms or problems. No history of esophageal varices, recent ascites, or ETOH greater than 2 drinks per day. : No history of dysuria, frequency or incontinence,, stones or chronic kidney disease, No difficulty urinating, nocturia > 1 time per night or hematuria Endocrine: No history of diabetes. Has not taken steroids within the past 30 days. No history of endocrinological symptoms or problems. Hematology: Chronic anti-coagulation / platelet meds (Aspirin), Iron deficiency anemia stable no supplement Oncology: No history of CA metastasis, chemo within 30 days, or radiotherapy within 90 days. Has not lost 10% of body wt in 6 months. No history of oncological symptoms or problems. Psych: No history of psychiatric symptoms or problems. Musculoskeletal: See HPI Skin: Negative for lesions, rash and itching. Objective PHYSICAL EXAM: VITALS: BP 156/73 Pulse 75 Temp (Src) 97.4 (Temporal) Resp 16 Ht 5' 6 (1.68m) Wt 182 lb 15.7 oz (83.0kg) SpO2 99% BMI 29.55 kg/(m^2). General: Alert and oriented, No acute distress, Healthy appearance Skin: Normal color, no rash, no lesions. HEENT: EOM, pupils equal, round and reactive. Cardiovascular: Normal S1 & S2, no rubs, murmurs or gallops. No JVD. Pulse regular. Lungs: Normal breath sounds, no wheezes or crackles. Abdomen: Soft, non-tender, no rigidity., Positive bowel sounds Extremities: No deformity, no edema or tenderness, no joint swelling or clubbing. Neurological: Normal cognition and motor skills. Gait normal. No weakness or sensory deficit. Pulses: Carotid and radial pulses normal +2. Diagnostic tests reviewed for today's visit: Lab Value Units Date High Low HB No results within date range. HCT No results within date range. WBC No results within date range. PLT No results within date range. NA No results within date range. K No results within date range. GLUC No results within date range. BUN No results within date range. CREAT No results within date range. PTSEC No results within date range. INR No results within date range. APTT No results within date range. ALT No results within date range. AST No results within date range. TBILI No results within date range. TSH No results within date range. Lab Value Units Date High Low HCGQT No results within date range. UHCG No results within date range. HCG, BODY* No results within date range. Lab Value Units Date High Low ABORHD No results within date range. ABSCREEN No results within date range. No results found for: HBA1C Nuc stress Lexiscan 08/05/2020 Anatomical Region Laterality Modality Chest -- Nuclear Medicine -- -- Nuclear Medicine Narrative 1. Lexiscan nuclear stress study was performed. 2. No significant ECG changes noted with stress. 3. Normal left ventricular ejection fraction and wall motion on gated images. Calculated LVEF more than 70%. 4. Mild transient ischemic dilatation calculated at 1.38. 5. There is a perfusion defect noted on both rest and stress images with no associated wall motion abnormality in the inferior wall which suggest subdiaphragmatic attenuation artifact. No significant reversible defects noted. 6. Overall, low risk for cardiovascular events. However, mild transient ischemic dilatation may represent significant coronary artery disease versus longstanding hypertensive heart disease. Please correlate clinically. Stress Findings A pharmacological stress test was performed using regadenoson. Patient achieved a maximal heart rate of 80 bpm (57% of maximum predicted heart rate). Patient achieved 1.00 METS. The patient experienced no angina during the test. The patient reached the end of the protocol. The patient reported dizziness and nausea during the stress test. Onset of symptoms occurred at stage 1 of the protocol. Symptoms began at minute 1 during stress and ended at minute 4 during recovery. The one minute heart rate recovery was 80 bpm. The two minute heart rate recovery was 78 bpm. Isotope Administration Time between isotope injection and imaging was 45 minutes. Imaging was performed at rest after an injection on 08/05/2020 at 08:45 EDT of 10.4 mCi. Imaging was performed at peak stress after an injection on 08/05/2020 at 10:03 EDT of 30.4 mCi. Perfusion Defect Conclusion TID ratio is 1.38. Stress Function Comments Post-stress ejection fraction is 75 %. All Measurements Exam End: 08/05/20 11:13 AM Last Resulted: 08/05/20 1:51 PM Received From: [employer] Result Received: 05/17/23 9:43 AM Most recent labs All in Epic Instructions Given to Patient: Instructions located in the after visit summary. Patient given verbal and written preop instructions and voices comprehension and compliance. SIGNATURE: Clovis Donis APRN.CNP PATIENT NAME: Sunni Jackson DATE: 07/12/2023 TIME: 11:06 AM [facility] 07-12-2023 History and physical note Images from the original note were not included. HISTORY AND PHYSICAL EXAMINATION SERVICE DATE: 07/12/2023 SERVICE TIME: 10:10 AM PRIMARY CARE PHYSICIAN: No primary care provider on file. REASON FOR VISIT: Sunni Jackson is a 83 year old male who is scheduled for ARTHRODESIS ANTERIOR DISC PREP DISCECTOMY OSTEOPHYTECTOMY & DECOMPRESS NERVE ROOTS C' BELOW C2 ARTHRODESIS ANT DISC PREP DISCECTOMY OSTEOPHYTECTOMY DECOM S CORD/NERVE ROOTS C' BELOW C2 EACH + ANTERIOR INSTRUMENTATION 2 VERTEBRAL SEGMENTS SPINE ALLOGRAFT CERVICAL CORPECTOMY ANT. APPROACH W/ DECOMPRESSION SPINAL CORD, 1 SEGMENT at the request of Dr. Rebeca Martinez for consultation. My final recommendation will be communicated back to the requesting physician by way of shared medical record or letter. Assessment Patient has the following medical conditions which may affect mariano-operative course: Essential (primary) hypertension Assessment: Stable on medication Today BP: 156/73 Amlodipine was recently increased by PCP To take medication morning of surgery Tobacco user Assessment: Current Smoker 0.5 ppd x 50 years Carotid stenosis Assessment: History of Left Carotid Enterectomy in 2020 Follows with vascular most recent OV 10/2022 Patient has what appears to be stable claudications. He is on aspirin and Plavix. I reviewed his carotid duplex that was done recently. Patient has no significant disease in the carotid arteries that would require intervention at this point. Continue with following him up. I will see him back in 1 year with a follow-up carotid duplex and arterial Dopplers. Continue with antiplatelets therapy and statins. Anemia Assessment: stable to get updated labs COPD exacerbation (HCC) Assessment: stable following with PCP Brunilda ocampo, gave him a spacer to trial To use inhaler morning of surgery Per note on 06/21/2023 Peripheral vascular disease (HCC) Assessment: stable per Vascular OV note Patient has what appears to be stable claudications. He is on aspirin and Plavix. I reviewed his carotid duplex that was done recently. Patient has no significant disease in the carotid arteries that would require intervention at this point. Continue with following him up. I will see him back in 1 year with a follow-up carotid duplex and arterial Dopplers. Continue with antiplatelets therapy and statins. Essential (primary) hypertension Assessment: Stable on medication Today BP: 156/73 Amlodipine was recently increased by PCP To take medication morning of surgery Tobacco user Assessment: Current Smoker 0.5 ppd x 50 years Carotid stenosis Assessment: History of Left Carotid Enterectomy in 2020 Follows with vascular most recent OV 10/2022 Patient has what appears to be stable claudications. He is on aspirin and Plavix. I reviewed his carotid duplex that was done recently. Patient has no significant disease in the carotid arteries that would require intervention at this point. Continue with following him up. I will see him back in 1 year with a follow-up carotid duplex and arterial Dopplers. Continue with antiplatelets therapy and statins. Anemia Assessment: stable to get updated labs COPD exacerbation (HCC) Assessment: stable following with PCP Brunilda carpiotrru, gave him a spacer to trial To use inhaler morning of surgery Per note on 06/21/2023 Peripheral vascular disease (HCC) Assessment: stable per Vascular OV note Patient has what appears to be stable claudications. He is on aspirin and Plavix. I reviewed his carotid duplex that was done recently. Patient has no significant disease in the carotid arteries that would require intervention at this point. Continue with following him up. I will see him back in 1 year with a follow-up carotid duplex and arterial Dopplers. Continue with antiplatelets therapy and statins. Barragan Activity Status Index: METS: Walk indoors, such as around the house (1.75 METs) Do light work around the house, such as dusting or washing dishes (2.70 METs) Take care of self; that is eating, dressing, bathing, using the toilet (2.75 METs) Walk a block or two on level ground (2.75 METs) Do moderate work around the house, such as vacuuming, sweeping floors, or carrying in groceries (3.50 METs) Do yardwork, such as raking leaves, weeding, or pushing a power mower (4.50 METs) Climb a flight of stairs or walk up a hill (5.50 METs) Do heavy work around the house, such as scrubbing floors, lifting or moving heavy furniture (8.00 METs) DASI Score: 31.45 Patient denies any chest pain or undue shortness of breath with the above physical activity. Patient is totally dependent. Clinical Frailty Scale: 3. Well, with treated comorbid disease STOP-Bang Score: Has or is being treated for high blood pressure Patient over 50 years old Male patient Denies snoring loudly Denies feeling tired, fatigued, or sleepy during the daytime Has not been observed to stop breathing or choking/gasping during sleep BMI less than or equal to 35 kg/m^2 Does not have a large neck STOP-Bang Score: 3 [id number] Score: Age: >=75 Sex: male CHF history: No Hypertension history: Yes Stroke/TIA/thromboembolism history: No Vascular disease history: Yes Diabetes history: No [id number] Score: 4 ARISCAT Score: Age: >80 Preoperative SpO2: >=96% Preoperative anemia: Yes Duration of surgery: >3 hrs Emergency procedure: No ARISCAT Score: ANESTHESIA FINDINGS: Intubation History: No history of difficult intubation. No abnormal airway history Significant Anesthesia Considerations: none Airway History: No history of difficult airway No abnormal airway history I - PHYSICAL EVALUATION AIRWAY Patient intubated: No. Tracheostomy tube not present Mallampati: III. TM distance: >3 FB. Neck ROM: full ROM without neurological symptoms. Mouth opening: adequate. Short neck: no. Thick neck: no Duran present: no Lip Bite Test: II Microretrognathia/Micronagthia/R ecessed Chin: No DENTAL Dentures, upper: complete. Dentures, lower: complete. II - ANESTHESIA PLAN Anesthetic plan additional comments: *PACC/TCI - anesthesia choice. Beta Usama Monitoring Plan Post Procedure Analgesic Plan Prepared for surgery: This patient is optimally prepared for surgery pending LABS and EKG. CONSULTS: Patient does not require consults for optimization at this time. The Following Tests/Procedures Have Been Initiated: Orders Placed This Encounter Comprehensive Metabolic Panel Standing Status: Future Standing Expiration Date: 10/11/2023 Complete Blood Count and Differential Standing Status: Future Standing Expiration Date: 10/11/2023 Iron and TIBC Standing Status: Future Standing Expiration Date: 10/11/2023 Ferritin Standing Status: Future Standing Expiration Date: 10/11/2023 PTT Standing Status: Future Standing Expiration Date: 10/11/2023 Prothrombin Time Standing Status: Future Standing Expiration Date: 10/11/2023 Confirm Blood Type Standing Status: Future Standing Expiration Date: 10/11/2023 Order Specific Question: Did Blood Bank direct you to place this order: Answer: No - Presurgical Workflow Type and Screen, 30 day Standing Status: Future Standing Expiration Date: 10/11/2023 vit A,C,Y-Ckho-Mltoal (PRESERVISION AREDS) 2,148 mcg-113 mg-45 mg-17.4mg tab Sig: Take 1 tablet by mouth daily with breakfast. amLODIPine (NORVASC) 10 mg tablet Sig: Take 10 mg by mouth once daily. ECG (IN OFFICE) Planned Anesthetic: Per anesthesia choice Subjective CHIEF COMPLAINT: bilateral upper extremity shocklike sensations HPI: 82-year-old gentleman is in surgery clinic with a history of shocklike sensation in bilateral upper extremity for the past 1 year. Shocklike sensation happen sporadically. Occasionally associated with neck movements. Sensation radiates up to all fingers. Mild posterior neck soreness. Denies sharp pain in upper extremity. He also noticed numbness over bilateral hand. 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 Noticed minimal imbalance while walking. Also complains of diffuse lower extremity subjective weakness. Denies frequent falls. Denies bowel or bladder dysfunction. PAST MEDICAL HISTORY Diagnosis Date Carotid stenosis COPD (chronic obstructive pulmonary disease) (HCC) Hypertension PAST SURGICAL HISTORY Procedure Laterality Date CAROTID ENDARTERECTOMY Left 2020 EAR SURGERY HX 1989 cysts removed from ear EAR SURGERY HX 2015 MASTOIDECTOMY x2 TYPANOPLASTY W/OTOENDOSCOPES FAMILY HISTORY Problem Relation Age of Onset Prostate Cancer Father Hyperlipidemia Father Heart Attack Father Diabetes Brother Heart Attack Brother SOCIAL HISTORY: Social History Tobacco Use Smoking status: Every Day Packs/day: .5 Types: Cigarettes Start date: 1957 Smokeless tobacco: Never Substance Use Topics Alcohol use: Not Currently Drug use: Not Currently Prior to Admission medications as of 07/12/23 1024 Medication Sig Last Dose Taking vit A,C,I-Xhns-Auzmgl (PRESERVISION AREDS) 2,148 mcg-113 mg-45 mg-17.4mg tab Take 1 tablet by mouth daily with breakfast. Yes amLODIPine (NORVASC) 10 mg tablet Take 10 mg by mouth once daily. Yes albuterol HFA (PROVENTIL HFA, VENTOLIN HFA) 90 mcg/actuation inhaler inhale 2 puffs by mouth and INTO THE LUNGS every 6 hours if needed for wheezing Yes aspirin, enteric coated (ASPIRIN, ENTERIC COATED) 81 mg EC tablet Take 81 mg by mouth. Yes vclzevpnkg-iuaupixl-pyubnebsfv (BREZTRI AEROSPHERE) 160-9-4.8 mcg/actuation HFA aerosol inhaler Inhale 2 Puffs as instructed. Yes lisinopril (ZESTRIL) 40 mg tablet Take 40 mg by mouth. Yes mupirocin (BACTROBAN) 2 % ointment Apply 1/2 ointment with a cotton swab in each nostril 2x daily for five days preop Yes No medication comments found. ALLERGIES Allergen Reactions Neosporin [Benzalko* Rash Blisters/scarring on skin. Covid Immunization Dates Overdue - Covid-19 Vaccine ( season) Overdue since 04/24/2023 12/22/2022 Imm Admin: COVID-19 vaccine, age 12+ yr, season (PFIZER-BIONTECH) 12/30/2021 Imm Admin: COVID-19 vaccine, age 12+ yr, bivalent (PFIZER-BIONTECH) 09/13/2021 Imm Admin: COVID-19 original vaccine, age 12+ yr, monovalent (PFIZER-BIONTECH - LOUISE TOP) 02/12/2021 Imm Admin: COVID-19 original vaccine, age 12+ yr, monovalent (PFIZER-BIONTECH - PURPLE TOP) 05/13/2020 Imm Admin: COVID-19 original vaccine, age 12+ yr, monovalent (PFIZER-BIONTECH - PURPLE TOP) Only the first 5 history entries have been loaded, but more history exists. REVIEW OF SYSTEMS: PAIN ASSESSMENT: Pain Pain Location: Generalized Description: Other: See comment ( shocking feeling in fingertips, feet, leg weakness. ) Duration Amount of Time: 1 Duration Units: Years Frequency: Continuous Intervention/Comfort measure: Declined General: No weight loss, malaise or fevers. Neuro: No history of TIA's, stroke, BUSINESS SERVICES ANALYST tumor, impaired sensorium, hemiplegia, paraplegia or quadraplegia. No neurological symptoms or problems. Respiratory: Positive for Moderate COPD, Daily bronchodilator use for previous 3 months, Tobacco Use Current Smoker 0.5 ppd , Negative for No history of current cough or dyspnea, or pneumonia in the past 6 weeks. No history of respiratory/pulmonary symptoms or problems Cardiovascular: Positive for: HLD, Hypertension + History of Carotid Stenosis s/p LeftCarotid Enterectomy no history of angina, CHF, IN, cardiac surgery or stents. Denies rest pain, gangrene or revascularization/amputation for PVD GI: No history of GI symptoms or problems. No history of esophageal varices, recent ascites, or ETOH greater than 2 drinks per day. : No history of dysuria, frequency or incontinence,, stones or chronic kidney disease, No difficulty urinating, nocturia > 1 time per night or hematuria Endocrine: No history of diabetes. Has not taken steroids within the past 30 days. No history of endocrinological symptoms or problems. Hematology: Chronic anti-coagulation / platelet meds (Aspirin), Iron deficiency anemia stable no supplement Oncology: No history of CA metastasis, chemo within 30 days, or radiotherapy within 90 days. Has not lost 10% of body wt in 6 months. No history of oncological symptoms or problems. Psych: No history of psychiatric symptoms or problems. Musculoskeletal: See HPI Skin: Negative for lesions, rash and itching. Objective PHYSICAL EXAM: VITALS: BP 156/73 Pulse 75 Temp (Src) 97.4 (Temporal) Resp 16 Ht 5' 6 (1.68m) Wt 182 lb 15.7 oz (83.0kg) SpO2 99% BMI 29.55 kg/(m^2). General: Alert and oriented, No acute distress, Healthy appearance Skin: Normal color, no rash, no lesions. HEENT: EOM, pupils equal, round and reactive. Cardiovascular: Normal S1 & S2, no rubs, murmurs or gallops. No JVD. Pulse regular. Lungs: Normal breath sounds, no wheezes or crackles. Abdomen: Soft, non-tender, no rigidity., Positive bowel sounds Extremities: No deformity, no edema or tenderness, no joint swelling or clubbing. Neurological: Normal cognition and motor skills. Gait normal. No weakness or sensory deficit. Pulses: Carotid and radial pulses normal +2. Diagnostic tests reviewed for today's visit: Lab Value Units Date High Low HB No results within date range. HCT No results within date range. WBC No results within date range. PLT No results within date range. NA No results within date range. K No results within date range. GLUC No results within date range. BUN No results within date range. CREAT No results within date range. PTSEC No results within date range. INR No results within date range. APTT No results within date range. ALT No results within date range. AST No results within date range. TBILI No results within date range. TSH No results within date range. Lab Value Units Date High Low HCGQT No results within date range. UHCG No results within date range. HCG, BODY* No results within date range. Lab Value Units Date High Low ABORHD No results within date range. ABSCREEN No results within date range. No results found for: HBA1C Nuc stress Lexiscan 08/05/2020 Anatomical Region Laterality Modality Chest -- Nuclear Medicine -- -- Nuclear Medicine Narrative 1. Lexiscan nuclear stress study was performed. 2. No significant ECG changes noted with stress. 3. Normal left ventricular ejection fraction and wall motion on gated images. Calculated LVEF more than 70%. 4. Mild transient ischemic dilatation calculated at 1.38. 5. There is a perfusion defect noted on both rest and stress images with no associated wall motion abnormality in the inferior wall which suggest subdiaphragmatic attenuation artifact. No significant reversible defects noted. 6. Overall, low risk for cardiovascular events. However, mild transient ischemic dilatation may represent significant coronary artery disease versus longstanding hypertensive heart disease. Please correlate clinically. Stress Findings A pharmacological stress test was performed using regadenoson. Patient achieved a maximal heart rate of 80 bpm (57% of maximum predicted heart rate). Patient achieved 1.00 METS. The patient experienced no angina during the test. The patient reached the end of the protocol. The patient reported dizziness and nausea during the stress test. Onset of symptoms occurred at stage 1 of the protocol. Symptoms began at minute 1 during stress and ended at minute 4 during recovery. The one minute heart rate recovery was 80 bpm. The two minute heart rate recovery was 78 bpm. Isotope Administration Time between isotope injection and imaging was 45 minutes. Imaging was performed at rest after an injection on 08/05/2020 at 08:45 EDT of 10.4 mCi. Imaging was performed at peak stress after an injection on 08/05/2020 at 10:03 EDT of 30.4 mCi. Perfusion Defect Conclusion TID ratio is 1.38. Stress Function Comments Post-stress ejection fraction is 75 %. All Measurements Exam End: 08/05/20 11:13 AM Last Resulted: 08/05/20 1:51 PM Received From: [employer] Result Received: 05/17/23 9:43 AM Most recent labs All in [facility] Instructions Given to Patient: Instructions located in the after visit summary. Patient given verbal and written preop instructions and voices comprehension and compliance. SIGNATURE: Clovis Donis APRN.CNP PATIENT NAME: Sunni Jackson DATE: 07/12/2023 TIME: 11:06 AM documented in this encounter [facility] 07-04-2023 Instructions Clovis Donis APRN.CNP - 07/04/2023 12:47 PM EDT PATIENT PREOPERATIVE INSTRUCTIONS Berny Martinez* has scheduled you for your procedure at this surgery center: [facility]: [phone] --[address] [place] [address]. On your scheduled day of surgery, please report to Patient Registration, ground floor - Start using your Mupirocin nasal ointment twice daily for 5 days prior to surgery including the morning of surgery. Arrival Time for Surgery: - The Surgery Center or hospital where you are having surgery will call the afternoon before surgery (or Sunday for Sunday surgery) with a scheduled arrival time. - If you have not heard by 4 pm, please contact the surgery center above. Please be aware that emergency situations arise, which may delay or change your surgical time. If this happens, we will notify you as soon as possible and regret any inconvenience. Please read below carefully for your personalized instructions. Dietary Restrictions: - No solid food after midnight. - You may have 12 ounces of clear liquids (water, clear juices such as apple juice or gatorade, carbonated beverages, clear tea, black coffee, jello) until 2 hours before scheduled arrival at facility. - Do not drink any alcohol after midnight the night before your surgery. - No Milk/Dairy - No Pulp Juices Medications: Bactroban Ointment (Mupirocin Calcium 2%) Please Apply using a cotton tipped applicator to bilateral nares, twice daily for five days prior to surgery Remember to: 1. Avoid contact of the medication with your eyes. 2. Once the ointment has been instilled into the nostrils, press the sides of your nose together and gently massage after application of the ointment. This will help to spread the ointment throughout the inside of the nostrils. 3. If you develop a rash, itching or irritation of the nostrils please discontinue using and notify your surgeon. 4. Do not use any other intranasal medications while using this ointment. - If you are prescribed inhalers for breathing, continue using them. Unless instructed differently below, stay on all of your medications until your surgery. Approved medications to take the morning of surgery with a sip of water: NONE DO NOT TAKE YOUR LISINOPRIL THE NIGHT BEFORE OR MORNING OF SURGERY If you take any medications for erectile dysfunction-Cialis (Tadalafil), Levitra, Staxyn (Vardenafil) Viagra (Sildenenafil please do not take these for 48 hours before surgery. If you start any new medications after today's visit, please contact the surgeon's office. Blood Thinning Medications: - Stop NSAIDS (Ibuprofen, Advil, Aleve, Motrin, Celebrex, Mobic, etc.) 7 days before surgery, as directed by your surgeon. - Stop Aspirin 7 days before surgery, as directed by your surgeon. - Stop Vitamin E, ALL multi-vitamins, herbals and dietary supplements 14 days before surgery. - You may take Tylenol (Acetaminophen) or any of your pain medications that do not contain aspirin or NSAIDS as needed. Important Reminders: - If you use CPAP/BIPAP, and will be staying over night, bring the machine with you to the surgery center. - Candy, mints, and tobacco products are NOT permitted the morning of surgery. - Hearing aids, dentures and glasses may be worn the morning of surgery. - NO jewelry, body piercings, makeup, hairpins or contacts are to be worn the day of surgery. If you develop symptoms such as a fever, cold, or flu, or have other changes to your health within TWO DAYS of scheduled surgery or the morning of surgery, please contact the surgery center above. Personal Belongings: -Please have photo ID and insurance cards. -If you do not have a copy of advance directives on file with us, please bring a copy with you on the day of surgery. - Leave ALL valuables and money at home or with family members. For Outpatient Procedures: - YOU MUST HAVE A RESPONSIBLE INSTRUMENT/CONTROL TECHNICIAN TAKE YOU HOME. A ROLLER PRINTING SUPERVISOR OR SENIOR INVESTMENT MANAGER CANNOT BE MADE A RESPONSIBLE INSTRUMENT/CONTROL TECHNICIAN. - We recommend that a responsible person stays with you overnight to take care of you. - You cannot stay in a hotel alone after outpatient surgery. You will not be permitted to have your surgery, if you do not have someone to take care of you. If you already have an Advance Directive, please fax a copy to [phone] or email to for it to be added to your chart. If you do not have an Advance Directive, you can find the appropriate form and more information at [email or web address]. We recommend that you complete the Advance Directive form found on the website and bring it with you the day of your surgery. It can be witnessed and scanned into your chart that day. Clovis Donis DIAGNOSTIC TECHNOLOGISTLondonC documented in this encounter [facility] 06-20-2023 Telephone encounter Note Received Ultrasound of the Carotid report by fax from [facility]. Scanned fax to chart for review. [facility] 06-20-2023 Miscellaneous Notes Received Ultrasound of the Carotid report by fax from [facility]. Scanned fax to chart for review. documented in this encounter [facility] 06-19-2023 History of Presen t illness Narrative Radiology Service Progress Note PATIENT NAME: Sunni Jackson DATE OF SERVICE: June 19, 2023 TIME: 10:16 AM PATIENT IDENTITY VERIFICATION COMPLETED USING TWO (2) IDENTIFIERS: Name and Date of confirmed by patient verbally and Name and Date of confirmed by identification band. FALL SCREENING: Has the patient had 2 falls in the last year or 1 fall with injury or currently using an Ambulatory Assistive Device (Walker, Cane, Wheelchair, Crutches, etc.)? Yes, Patient High Risk for Falls What interventions were put in place to prevent falls during this visit? Yellow Falls Risk Wristband Applied PATIENT GENDER DATA: Male PATIENT RELEVANT IMPLANT DATA REVIEWED: Not Applicable PATIENT PRESENTS WITH AN IMPLANTABLE OR ATTACHED ASSEMBLER ADJUSTER: No RADIOLOGY DEPARTMENT: General X-ray: Exam(s) Completed: Spine X-Ray(s): Cervical AP / LAT / FLEX-EXT PERIPHERAL IV DATA: Not applicable SIGNED BY: RT Jacob(R) June 19, 2023 10:16 AM documented in this encounter [facility] 06-19-2023 Note HNO ID: [id number] Author: MITRA PAL RT(R) Service: ? Author Type: Technologist Type: Progress Notes Filed: 06/19/2023 10:16 Note Text: Radiology Service Progress Note PATIENT NAME: Sunni Jackson DATE OF SERVICE: June 19, 2023 TIME: 10:16 AM PATIENT IDENTITY VERIFICATION COMPLETED USING TWO (2) IDENTIFIERS: Name and Date of confirmed by patient verbally and Name and Date of confirmed by identification band. FALL SCREENING: Has the patient had 2 falls in the last year or 1 fall with injury or currently using an Ambulatory Assistive Device (Walker, Cane, Wheelchair, Crutches, etc.)? Yes, Patient High Risk for Falls What interventions were put in place to prevent falls during this visit? Yellow Falls Risk Wristband Applied PATIENT GENDER DATA: Male PATIENT RELEVANT IMPLANT DATA REVIEWED: Not Applicable PATIENT PRESENTS WITH AN IMPLANTABLE OR ATTACHED ASSEMBLER ADJUSTER: No RADIOLOGY DEPARTMENT: General X-ray: Exam(s) Completed: Spine X-Ray(s): Cervical AP / LAT / FLEX-EXT PERIPHERAL IV DATA: Not applicable SIGNED BY: RT Jacob(R) June 19, 2023 10:16 AM [facility] 06-19-2023 Note HNO ID: [id number] Author: JERRY GEORGE RN Service: ? Author Type: Registered Nurse Type: Progress Notes Filed: 06/19/2023 10:26 Note Text: Neuro SPINE CARE COORDINATION PRE-OP VISIT Met with patient in office for pre op education. Given both written and verbal instructions re : Skin prep, wound care, pain management and post op restrictions. Provided to patient: [facility] Surgery Guide, skin prep supplies, Spine Surgery Pre/post op education packet. Yes Reviewed with patient to report to desk for surgery ? Yes. Reviewed with the patient to call [phone] the day before to get surgery report time? Yes. Patient aware eat nothing after midnight prior to surgery, clear liquids only until 2 hours before report time. Yes. Patient aware surgery will be OUTPATIENT: extended recovery. Discussed care post discharge : Self care. Does patient have transportation to and from surgery ? Yes. Falls Education provided ? Yes Nasal swab obtained ? Yes. Patient instructed in mupirocin treatment : Prescription called to pharmacy. Questions answered and patient did voice(s) understanding via teach back. Physical Therapy : YES Additional Comments : Post -op Support yes Spoke to Dr Newton office(vascular) received carotid ultrasound. Copy to onbase. Jerry George RN [facility] 06-19-2023 History of Presen t illness Narrative Neuro SPINE CARE COORDINATION PRE-OP VISIT Met with patient in office for pre op education. Given both written and verbal instructions re : Skin prep, wound care, pain management and post op restrictions. Provided to patient: [facility] Surgery Guide, skin prep supplies, Spine Surgery Pre/post op education packet. Yes Reviewed with patient to report to desk for surgery ? Yes. Reviewed with the patient to call [phone] the day before to get surgery report time? Yes. Patient aware eat nothing after midnight prior to surgery, clear liquids only until 2 hours before report time. Yes. Patient aware surgery will be OUTPATIENT: extended recovery. Discussed care post discharge : Self care. Does patient have transportation to and from surgery ? Yes. Falls Education provided ? Yes Nasal swab obtained ? Yes. Patient instructed in mupirocin treatment : Prescription called to pharmacy. Questions answered and patient did voice(s) understanding via teach back. Physical Therapy : YES Additional Comments : Post -op Support yes Spoke to Dr Newton office(vascular) received carotid ultrasound. Copy to onbase. Jerry George RN SPINE SURGERY NEW PATIENT This is an in-person visit. PCP: No primary care provider on file. 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 Mr. Jackson is a pleasant 82-year-old gentleman is in surgery clinic with a history of shocklike sensation in bilateral upper extremity for the past 1 year. Shocklike sensation happen sporadically. Occasionally associated with neck movements. Sensation radiates up to all fingers. Mild posterior neck soreness. Denies sharp pain in upper extremity. He also noticed numbness over bilateral hand. 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 Noticed minimal imbalance while walking. Also complains of diffuse lower extremity subjective weakness. Denies frequent falls. Denies bowel or bladder dysfunction. Known hypertension. On aspirin 81 mg. Underwent left-sided carotid endarterectomy in the past. He is following with vascular surgery. Not taking regular pain medications. No recent cervical epidural injections No previous spine surgeries PRECIPITATING EVENT: None DURATION OF SYMPTOMS: Greater Than 1 Year PAIN EVALUATION No data found in the last 1 encounters. Pain Radiation: Shocklike sensation in bilateral upper extremity up to fingers Aggravating Factors: None Alleviating Factors: None Pain Ratio: Pain in the arm is greater than in the neck DERMATOMAL DISTRIBUTION: Not applicable AMBULATORY STATUS: [facility] ANTIPLATELET OR ANTICOAGULATION STATUS: Aspirin 81 mg PREVIOUS CONSERVATIVE TREATMENTS: Pain medication as needed PREVIOUS SPINAL SURGERY: None There is no problem list on file for this patient. No past medical history on file. No past surgical history on file. No family history on file. Social History Tobacco Use Smoking status: Every Day Types: Cigarettes Smokeless tobacco: Never ALLERGIES Not on File MEDICATIONS: lisinopril (ZESTRIL) 40 mg tablet Take 40 mg by mouth. montelukast (SINGULAIR) 10 mg tablet Take 10 mg by mouth. albuterol HFA (PROVENTIL HFA, VENTOLIN HFA) 90 mcg/actuation inhaler inhale 2 puffs by mouth and INTO THE LUNGS every 6 hours if needed for wheezing amLODIPine (NORVASC) 5 mg tablet Take 1 tablet by mouth every afternoon. aspirin, enteric coated (ASPIRIN, ENTERIC COATED) 81 mg EC tablet Take 81 mg by mouth. exfvhsqxxs-utustbkr-fruwrgguga (BREZTRI AEROSPHERE) 160-9-4.8 mcg/actuation HFA aerosol inhaler Inhale 2 Puffs as instructed. thiamine (VITAMIN B1) 100 mg tablet Take 100 mg by mouth every morning. NASACORT 55 mcg nasal inhaler INSTILL 2 SPRAYS INTO EACH NOSTRIL IN THE MORNING REVIEW OF SYSTEMS: PAIN ASSESSMENT: See HPI. GENERAL: Denies fever, chills malaise and weight loss. HEENT: No recent change in vision or hearing. CARDIOVASCULAR: Denies chest pain, history of A-fib, valvular disease, or pacemaker/ICD. RESPIRATORY: Denies SOB, sputum production, and hemoptysis. GI: Denies GI ulcers, inflammatory disease, or liver disease. : Denies change in frequency or urgency, kidney disease, and burning with urination. MUSCULOSKELETAL: Negative for joint pain or swelling, back pain or muscle pain. SKIN: Denies rash or itching. PSYCHOLOGICAL: Denies uncontrolled depression or anxiety. NEURO: Denies CVA, seizures, headaches. ENDOCRINE: Denies diabetes, thyroid disease. HEMATOLOGY/LYMPHOLOGY: Denies cancer, bleeding or clotting disorders, anemia,and DVT's. ALLERGIC/IMMUNOLOGICAL: Denies risks for infection, or recent MRSA infections. Patient Entered Questionnaires PROMIS Score Percentiles Percentiles provide an indication of how the patient's score ranks in relation to the general population. Higher percentile rankings indicate better function/quality of life. 50th percentile is the average of the general population and indicates half of respondents had a worse score. Depression Screening: PHQ-9 Self-Harm (Item 9) response options: 0 Not at all 1 Several days 2 More than half the days 3 Nearly every day PHQ-9 Levels: 0-4 No to mild depression 5-9 Mild depression 10-14 Moderate depression 15-19 Moderately severe depression 20-27 Severe depression OBJECTIVE: PHYSICAL EXAM BP 178/77 Pulse 101 Temp 36.7 C (98 F) Ht 167.6 cm (5' 6 ) Wt 85.7 kg (189 lb) SpO2 99% BMI 30.51 kg/m GENERAL APPEARANCE: Well nourished, well developed, and no apparent distress. NEURO PSYCH: Patient oriented to person, place, and time. Mood pleasant. Benign affect. CARDIOVASCULAR: Palpable pulses. No edema noted. No varicosities. SKIN: Head, neck, trunk, and extremities dry, intact and without lesions. LYMPHATICS: No palpable nodes in cervical or axillae areas. Groin exam deferred. MUSCULOSKELETAL VISUAL INSPECTION CERVICAL: WNL THORACIC: WNL LUMBAR: WNL PALPATION: SPINOUS PROCESS: No pain. PARASPINALS: No pain. MUSCLE BULK: Normal and symmetrical in the upper & lower extremities. MUSCLE TONE: Normal. MOTOR: 5/5 in all muscle groups. Except right hand analyst sales weakness SENSORY: Normal sensory exam GAIT: Stable gait, tandem walk is difficult REFLEXES: +3 to bilateral U/L extremities. PROPRIOCEPTION: Not tested. LONG TRACT SIGNS: Guevara's present bilaterally. Ill sustained ankle clonus is present STRAIGHT LEG TEST: Ipsilateral: Negative. Contralateral: Negative. L'HERMITTES SIGN: Not tested. SPURLING'S TEST: Not tested. NEURO TESTS: Cranial Nerves: Normal mood and affect. CNII-XII grossly intact. DATA REVIEW [facility] records independently reviewed Images independently reviewed with the patient EXAM: MR cervical spine wo con REASON FOR EXAM: Cervical Spinal Stenosis. TECHNIQUE: Multiplanar, multisequence imaging of the cervical spine was performed without contrast COMPARISON: CT scan 06/11/2022. FINDINGS: Study mildly dated by motion. Limited evaluation the posterior fossa is without acute or suspicious abnormality. Mild low-lying cerebellar tonsils. The visualized spinal cord demonstrates normal caliber. Signal abnormality within the spinal cord at the C4-C5 and C5-C6 level with overlying stenosis favors to represent myelomalacia. Unchanged alignment of the cervical spine. Unchanged mild anterolisthesis of C3-C4. Vertebral body heights and facet alignments are maintained. No acute or aggressive osseous abnormality identified. Limited evaluation of the paravertebral soft tissues is unremarkable. C2-C3: No focal disc herniation identified. No severe spinal canal stenosis. Mild bilateral neural foraminal stenosis secondary to uncovertebral degeneration and facet arthropathy. C3-C4: Broad-based disc bulge without severe spinal canal stenosis. Moderate bilateral neural foraminal stenosis, right greater than left secondary to disc osteophyte complex, uncovertebral degeneration and facet arthropathy. C4-C5: Diffuse broad-based disc bulge with severe spinal canal stenosis. Severe bilateral neural foraminal stenosis secondary to disc osteophyte complex, uncovertebral degeneration and facet arthropathy. C5-C6: Broad-based disc bulge with severe spinal canal stenosis. Severe bilateral neural foraminal stenosis secondary to disc osteophyte complex, uncovertebral degeneration and facet arthropathy. C6-C7: Broad-based disc bulge with moderate spinal canal stenosis. Moderate to severe bilateral neural foraminal stenosis secondary to disc osteophyte complex, uncovertebral degeneration and facet arthropathy. C7-T1: No focal disc herniation identified. No significant spinal canal stenosis. Mild to moderate bilateral neural foraminal stenosis, right greater than left secondary to uncovertebral degeneration and facet arthropathy. MR/MR cervical spine wo con IMPRESSION: 1. Moderate to severe multilevel degenerative disc disease and facet arthropathy, most significant at the C4-C5 through C6-C7 levels as described above. 2. 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 Procedure: MR lumbar spine wo con EXAMINATION: MR lumbar spine wo con HISTORY: Spinal Stenosis M48.061 COMPARISON: No relevant comparison available. TECHNIQUE: A variety of imaging planes and parameters were utilized for visualization of suspected pathology. FINDINGS: For the purposes of numbering, sagittal T2 image # 8 extends from the T10-T11 vertebral body superiorly to the S3 level inferiorly. PARASPINAL AREA: Ectasia of the distal abdominal aorta measuring 2.5 cm in diameter BONES: Mild anterior wedging at T12 and L1 vertebral bodies, chronic. Moderate degenerative spondylosis. 2 mm retrolisthesis of L1 on L2 CORD/CAUDA EQUINA: Normal caliber, contour, and signal intensity. DISC LEVELS: 12-L1: Moderate degenerative disc disease is present without visible neural impingement. L1-L2: Moderate degenerative disc disease is present without visible neural impingement. L2-L3: Moderate degenerative disc disease is present without visible neural impingement. L3-L4: Disc desiccation. Left foraminal disc herniation the protrusion type extending posteriorly up to 3.5 mm sagittal image #6. No central or foraminal stenosis L4-L5: Early degenerative disc disease is present without focal protrusion or neural impingement. L5-S1: Moderate disc space narrowing and disc desiccation. Moderate diffuse disc bulge with right foraminal disc herniation of the protrusion type extending posteriorly up to 3 mm. No central canal or left foraminal stenosis. Moderate narrowing of the right neural foramen ASSESSMENT/PLAN Mr. Jackson is a pleasant 82-year-old gentleman is in surgery clinic with a history of shocklike sensation in bilateral upper extremity for the past 1 year. Shocklike sensation happen sporadically. Occasionally associated with neck movements. Sensation radiates up to all fingers. Mild posterior neck soreness. Denies sharp pain in upper extremity. He also noticed numbness over bilateral hand. 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 Noticed minimal imbalance while walking. Also complains of diffuse lower extremity subjective weakness. Denies frequent falls. Denies bowel or bladder dysfunction. Known hypertension. On aspirin 81 mg. Underwent left-sided carotid endarterectomy in the past. He is following with vascular surgery. Not taking regular pain medications. No recent cervical epidural injections No previous spine surgeries Neurological examination showed stable gait, tandem walk is a difficulty. Right hand analyst sales is weak. No sensory deficit. Guevara's present bilaterally. Ill sustained ankle clonus is present. CT cervical spine done on May 2022 showed loss of disc height at the C4-5, C5-6, C6-7 levels with posterior osteophyte. MRI cervical spine done on 05/18/2023 showed loss of disc height at the C4-5, C5-6 level with posterior osteophyte/disc herniation causing significant compression of the cord. Myelomalacia change at C4-5, C5-6 levels. MRI lumbar spine showed degenerative changes without significant canal stenosis. Varying degree of foraminal stenosis. Discussed clinical, imaging finding. Showed images and explained detail. Discussed treatment options for cervical spondylosis with myelopathy which includes continued conservative treatment with neck exercise, physical therapy, pain medication, membrane stabilizers, epidural injection and surgical intervention. Considering myelopathy, I think surgery is a better option. Discussed in detail about C4-5, C5-6 anterior cervical discectomy/C5 corpectomy surgical procedure, its advantages and risks. Risks of surgery includes infection, bleeding, hematoma formation, nonhealing of wound, wound dehiscence, superficial wound infection, CSF leak, nerve damage, nonimprovement of her pain, nonimprovement of numbness, bowel/bladder dysfunction, screw malposition, vertebral body fracture, screw loosening, screw pullout, screw fracture, pseudoarthrosis/nonhealing of bone graft, adjacent segment disc disease, requirement of further surgery in the future, swallowing difficulty, hoarseness of voice, carotid injury, tracheoesophageal injury, stroke, visual dysfunction, vision loss, vocal cord paralysis, pneumonia, DVT, heart attack, pulmonary embolism and . All his questions were answered. He underwent carotid endarterectomy on the left side in the past. He is following with vascular surgeon. He underwent carotid Doppler on October 2022. We will review carotid Doppler results prior to scheduling for surgical intervention. If there is significant carotid disease on the right side, we will plan surgical intervention through a posterior approach. Sunni Jackson is clinically indicated and wishes to pursue C4-5, C5-6 anterior cervical discectomy/C5 corpectomy The risks, benefits, and anticipated outcomes of the procedure/treatment/test, the alternatives to the procedure/treatment/test and their risks and benefits, and the roles and tasks of the personnel to be involved were discussed with the patient or the patient s personal uniforms sales representative. The patient has elected to schedule surgery at this time or intends to call the office with a surgical date. Shared decision making occurred while obtaining informed consent. The majority of the visit was spent counseling and/or coordinating care for the patient. The patient was counseled regarding shocklike sensation bilateral upper extremity, hand numbness, walking difficulty, imbalance, cervical spondylosis, cervical myelopathy, cervical discectomy and fusion. Total face to face time was 45 minutes. SIGNATURE: Rebeca Martinez MD PATIENT NAME: Sunni Jackson DATE: June 19, 2023 TIME: 8:50 AM PAGER: documented in this encounter [facility] 06-19-2023 Note HNO ID: [id number] Author: REBECA MARTINEZ MD Service: ? Author Type: Physician Type: Progress Notes Filed: 06/19/2023 09:48 Note Text: SPINE SURGERY NEW PATIENT This is an in-person visit. PCP: No primary care provider on file. 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 Mr. Jackson is a pleasant 82-year-old gentleman is in surgery clinic with a history of shocklike sensation in bilateral upper extremity for the past 1 year. Shocklike sensation happen sporadically. Occasionally associated with neck movements. Sensation radiates up to all fingers. Mild posterior neck soreness. Denies sharp pain in upper extremity. He also noticed numbness over bilateral hand. 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 Noticed minimal imbalance while walking. Also complains of diffuse lower extremity subjective weakness. Denies frequent falls. Denies bowel or bladder dysfunction. Known hypertension. On aspirin 81 mg. Underwent left-sided carotid endarterectomy in the past. He is following with vascular surgery. Not taking regular pain medications. No recent cervical epidural injections No previous spine surgeries PRECIPITATING EVENT: None DURATION OF SYMPTOMS: Greater Than 1 Year PAIN EVALUATION No data found in the last 1 encounters. Pain Radiation: Shocklike sensation in bilateral upper extremity up to fingers Aggravating Factors: None Alleviating Factors: None Pain Ratio: Pain in the arm is greater than in the neck DERMATOMAL DISTRIBUTION: Not applicable AMBULATORY STATUS: [facility] ANTIPLATELET OR ANTICOAGULATION STATUS: Aspirin 81 mg PREVIOUS CONSERVATIVE TREATMENTS: Pain medication as needed PREVIOUS SPINAL SURGERY: None There is no problem list on file for this patient. No past medical history on file. No past surgical history on file. No family history on file. Social History Tobacco Use Smoking status: Every Day Types: Cigarettes Smokeless tobacco: Never ALLERGIES Not on File MEDICATIONS: lisinopril (ZESTRIL) 40 mg tablet Take 40 mg by mouth. montelukast (SINGULAIR) 10 mg tablet Take 10 mg by mouth. albuterol HFA (PROVENTIL HFA, VENTOLIN HFA) 90 mcg/actuation inhaler inhale 2 puffs by mouth and INTO THE LUNGS every 6 hours if needed for wheezing amLODIPine (NORVASC) 5 mg tablet Take 1 tablet by mouth every afternoon. aspirin, enteric coated (ASPIRIN, ENTERIC COATED) 81 mg EC tablet Take 81 mg by mouth. psjfzoxbve-ahqbfcwe-kvpskzxckx (BREZTRI AEROSPHERE) 160-9-4.8 mcg/actuation HFA aerosol inhaler Inhale 2 Puffs as instructed. thiamine (VITAMIN B1) 100 mg tablet Take 100 mg by mouth every morning. NASACORT 55 mcg nasal inhaler INSTILL 2 SPRAYS INTO EACH NOSTRIL IN THE MORNING REVIEW OF SYSTEMS: PAIN ASSESSMENT: See HPI. GENERAL: Denies fever, chills malaise and weight loss. HEENT: No recent change in vision or hearing. CARDIOVASCULAR: Denies chest pain, history of A-fib, valvular disease, or pacemaker/ICD. RESPIRATORY: Denies SOB, sputum production, and hemoptysis. GI: Denies GI ulcers, inflammatory disease, or liver disease. : Denies change in frequency or urgency, kidney disease, and burning with urination. MUSCULOSKELETAL: Negative for joint pain or swelling, back pain or muscle pain. SKIN: Denies rash or itching. PSYCHOLOGICAL: Denies uncontrolled depression or anxiety. NEURO: Denies CVA, seizures, headaches. ENDOCRINE: Denies diabetes, thyroid disease. HEMATOLOGY/LYMPHOLOGY: Denies cancer, bleeding or clotting disorders, anemia,and DVT's. ALLERGIC/IMMUNOLOGICAL: Denies risks for infection, or recent MRSA infections. Patient Entered Questionnaires PROMIS Score Percentiles Percentiles provide an indication of how the patient's score ranks in relation to the general population. Higher percentile rankings indicate better function/quality of life. 50th percentile is the average of the general population and indicates half of respondents had a worse score. Depression Screening: PHQ-9 Self-Harm (Item 9) response options: 0 Not at all 1 Several days 2 More than half the days 3 Nearly every day PHQ-9 Levels: 0-4 No to mild depression 5-9 Mild depression 10-14 Moderate depression 15-19 Moderately severe depression 20-27 Severe depression OBJECTIVE: PHYSICAL EXAM BP 178/77 Pulse 101 Temp 36.7 ?C (98 ?F) Ht 167.6 cm (5' 6 ) Wt 85.7 kg (189 lb) SpO2 99% BMI 30.51 kg/m? GENERAL APPEARANCE: Well nourished, well developed, and no apparent distress. NEURO PSYCH: Patient oriented to person, place, and time. Mood pleasant. Benign affect. CARDIOVASCULAR: Palpable pulses. No edema noted. No varicosities. SKIN: Head, neck, trunk, and extremities dry, in (more content not included)... [facility] 05-23-2023 Note HNO ID: [id number] Author: NIKKIE NG APRN.HOME CARE SCHEDULER Service: ? Author Type: Nurse Practitioner Type: Progress Notes Filed: 05/23/2023 16:15 Note Text: Per Triage: Sunni Jackson is a 82 year old male that reports symptoms of leg pain when crossing legs, difficulty walking at times, tingling in hands and feet, as well as subjective weakness in the legs. Out of state: No BMI: 29.57 A1C: n/a Previous Spine Surgery: No CMT: Physical therapy NSAIDs Studies (Reports unless indicated) MRI Cervical 05/18/23: -Moderate to severe multilevel degenerative disc disease and facet arthropathy, most significant at the C4-C5 through C6-C7 - Severe BL foraminal stenosis at C4-C5, C5-C6 - Diffuse broad-based disc bulge with severe spinal canal stenosis @ C4-C5, C5-C6 - Moderate central canal stenosis and moderate foraminal stenosis at C6-C7 - Probable myelomalacia of the spinal cord at the C4-C5 and C5-C6 levels. XR Cervical 09/04/2022: - Cervical vertebral bodies normal in height. 2.2 mm anterolisthesis C3 on C4. 2.3 mm retrolisthesis C4 on C5. 1.8 mm retrolisthesis C5 on C6. 1.7 mm retrolisthesis C6 on C7. 3.2 mm anterolisthesis C7 on T1. Diffuse disc space narrowing C4-5 C5-6 and C6-7. Anterior osteophytes C4-C6. MRI Lumbar 11/10/2022: - Degenerative changes most significant at L5-S1 where there is moderate right foraminal stenosis Disposition: Please schedule in person with first available cervical spine surgeon, in the setting of severe central canal and foraminal stenosis at 2 levels and reported symptoms. Patient should hand carry imaging disc. [facility] 05-17-2023 Note HNO ID: [id number] Author: ?, ?, ? Service: ? Author Type: ? Type: Progress Notes Filed: 05/23/2023 16:15 Note Text: Patient name: Sunni Jackson Are you being referred by a [facility] Spine Health Provider or Pain Management Provider at [facility]? No If answer is YES please schedule directly with surgeon, triage does not need to be completed. Is this a self-referral No If not, who is the Referring Provider 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 NP Is this a 2nd opinion from another spine surgeon? No Were you offered surgery? No MRI/CT/myelogram within 12 months? Yes If NO , please refer to medical spine or PCP to complete above imaging, triage does not need to be completed If YES,? please ask for the name/address of the facility where the MRI/CT/myelogram was completed: [place] [address] MRI/CT/myelogram viewable in Epic: No If not, please provide [phone] to fax in imaging reports for review. Also, please inform patient to hand carry imaging disc to appointment. XR (spine) within 12 months: Yes If YES,? please ask for the name/address of the facility where the XR was completed: [place] [address] Dr. Ramirez's patients: Have you had previous EMG/Nerve Conduction Study, Ultrasound, or MRI for these same symptoms? If YES,? please ask for the name/address of the facility where they were completed: Requested provider (First and Last name): andrea Are you interested in a virtual visit if offered? 1. Where are you having symptoms related to this visit? Cervical/lumbar spine Back pain No Leg pain No pain when I cross my legs Arm pain No Neck pain No 2. Are you having any of the following symptoms: Difficulty walking Yes at times Numbness Yes tingling hands and feet Weakness Yes legs Trouble using your hands? No 3. Have you had any injections or physical therapy in the last 12 months? Yes If YES then please ask for the name/address of the facility where the injections and/or physical therapy was completed Injections [facility] [address] [place] [address] PT [facility] [address] [place] [address] Have you tried any other kinds of non-surgical treatments in the last 12 months? (For example: NSAIDS, muscle relaxants, analgesics, oral steroids, Chiropractor, Acupuncture): NSAIDS 4. Are you currently taking daily prescribed narcotic medications for your current symptoms (For example Oxycodone, Hydrocodone, Tramadol, Morphine, Other)? No 5. Have you had previous spinal surgery for this same symptoms? No If YES? please ask for the name of facility/address of where the surgery was completed: Additional Comments [phone] [facility] Evaluation note Diagnosis Cervical disc disorder with myelopathy of mid-cervical region- Primary Intervertebral cervical disc disorder with myelopathy, cervical region Cervical cord myelomalacia (HCC) Other myelopathy 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, cervical region [facility] Pre-op testing- Primary Preoperative examination, unspecified 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, 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, cervical region [facility] Diagnosis 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, 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, cervical region [facility] Diagnosis Pre-op examination- Primary Preoperative examination, unspecified Chronic obstructive pulmonary disease, unspecified COPD type (HCC) Primary hypertension Unspecified essential hypertension Chronic kidney disease, unspecified CKD stage Essential (primary) hypertension Unspecified essential hypertension Tobacco user Tobacco use disorder Stenosis of left carotid artery Occlusion and stenosis of carotid artery without mention of cerebral infarction Anemia, unspecified type COPD exacerbation (HCC) Obstructive chronic bronchitis with exacerbation Peripheral vascular disease (HCC) Peripheral vascular disease, unspecified 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 He is on aspirin and Plavix. I reviewed his carotid duplex that was done recently. Patient has no significant disease in the carotid arteries that would require intervention at this point. Continue with following him up. I will see him back in 1year with a follow-up carotid duplex and arterial Dopplers. Continue with antiplatelets therapy andstatins. * Assessment & Plan Note - Clovis Donis APRN.CNP - 07/12/2023 10:32 AM EDTAssociated Problem(s): COPD exacerbation (HCC) Assessment: stable following with PCP Brunilda ocampo, gave him a spacer to trial To use inhaler morning of surgery Per note on 06/21/2023 * Assessment & Plan Note - Clovis Donis APRN.CNP - 07/12/2023 10:30 AM EDTAssociated Problem(s): Anemia Assessment: stable to get updated labs * Assessment & Plan Note - Clovis Donis APRN.CNP - 07/12/2023 10:30 AM EDTAssociated Problem(s): Carotid stenosis Assessment: History of Left Carotid Enterectomy in 2020 Follows with vascular most recent OV 10/2022 Patient has what appears to be stable claudications. He is on aspirin and Plavix. I reviewed his carotid duplex that was done recently. Patient has no significant disease in the carotid arteries thatwould require intervention at this point. Continue with following him up. I will see him back in 1 year with a follow-up carotid duplex and arterial Dopplers. Continue with antiplatelets therapy and statins. * Assessment & Plan Note - Clovis Donis APRN.CNP - 07/12/2023 10:30 AM EDTAssociated Problem(s): Tobacco user Assessment: Current Smoker 0.5 ppd x 50 years * Assessment & Plan Note - Clovis Donis APRN.CNP - 07/12/2023 10:17 AM EDTAssociated Problem(s): Essential (primary) hypertension Assessment: Stable on medication Today BP: 156/73 Amlodipine was recently increased by PCP To take medication morning of surgery [facility] Diagnosis Cervical vertebral fusion- Primary Other unspecified back disorder documented in this [facility] [place] noteNo assessment information availableAs[facility]ab[facility] Work Phone: Reason for referral (narrative)* Diagnostic Procedure Only (Routine) - Closed Specialty Diagnoses / Procedures Referred By Contac t Referred To Contact XR IMAGING Diagnoses Cervical disc disorder with myelopathy of mid-cervical region Procedures XR CERV OTHER 4V AP/LAT/FLX/EXT RADEX SPINE CERVICAL 4 [place] [address] [place] [address] [place] [address] Referral ID Status Reason Start Date Expiration Date V isits Requested Visits Authorized [id number] Closed Auto-Generate d Referral 06/19/2023 07/18/2024 1 1 [facility] for referral (narrative)* Outpatient Procedure (Routine) - Pending Review Specialty Diagnoses / Procedures Referred By Contac t Referred To Contact [facility] Diagnoses Pre-op examination Chronic obstructive pulmonary disease, unspecified COPD type (HCC) Primary hypertension Chronic kidney disease, unspecified CKD stage Essential (primary) hypertension Tobacco user Stenosis of left carotid artery Anemia, unspecified type COPD exacerbation (HCC) Peripheral vascular disease (HCC) Procedures ECG COMPLETE ECG ROUTINE ECG W/LEAST 12 LDS W/I&R Clovis Donis APRN.HOME CARE SCHEDULER [address] [place] [address] [facility] [place] [address] [place] [address] Referral ID Status Reason Start Date Expiration Date Visits Requested Visits Authorized [id number] Pending Review Auto-Generat ed Referral 07/12/2023 07/11/2024 1 1 [facility] for referral (narrative)* Diagnostic Procedure Only (Routine) - Authorized Specialty Diagnoses / Procedures Referred By Contac t Referred To Contact XR IMAGING Diagnoses Cervical vertebral fusion Procedures XR CERV GENERAL 2V AP/LAT RADEX SPINE CERVICAL 2 OR 3 [place] [address] [place] [address] [place] [address] Referral ID Status Reason Start Date Expiration Date Visits Requested Visits Authorized [id number] Authorized Auto-Generat ed Referral 08/23/2023 09/21/2024 1 1 * Physical Therapy (Routine) - Authorized Specialty Diagnoses / Procedures Referred By Contac t Referred To Contact [facility] Diagnoses Cervical vertebral fusion Procedures CONSULT TO PHYSICAL THERAPY PHYSICAL THERAPY EVALUATION HIGH COMPLEX [address] [place] [address] [place] [address] [facility] [place] [address] [place] [address] Referral ID Status Reason Start Date Expiration Date Visits Requested Visits Authorized [id number] Authorized PCP Requested Referral Auto-Generate d Referral 08/23/2023 08/22/2024 99 99 [facility] for visit Narrative* Diagnostic Procedure Only (Routine) - Closed Specialty Diagnoses / Procedures Referred By Contac t Referred To Contact XR IMAGING Diagnoses Cervical disc disorder with myelopathy of mid-cervical region Procedures XR CERV OTHER 4V AP/LAT/FLX/EXT RADEX SPINE CERVICAL 4 [place] [address] [facility] [place] [id number] [place] [address] Referral ID Status Reason Start Date Expiration Date V isits Requested Visits Authorized [id number] Closed Auto-Generate d Referral 06/19/2023 07/18/2024 1 1 [facility] Summary Purpose Family History No Family History Records Found Relationship Condition Age at Onset Recorded Date/T kiarra father Unknown Heart disease Unknown mother Unknown Advance Directives No Advanced Directives Records Found Advance Directive Response Recorded Date/ Time Advance Directives No October 19, 2023 10:58am Reason for Referral Specialty Diagnoses / Procedures Referred By Contac t Referred To Contact Diagnoses Pre-op testing Procedures REFER TO PACC - PRE ANESTHESIA CONSULTATION CLINIC OFFICE/OUTPATIENT [facility] 60 MINUTES Rufina Wiggins PA-C [id number] [place] [address] Referral ID Status Reason Start Date Expiration Date Visits Requested Visits Authorized [id number] Authorized PCP Requested Referral 06/19/2023 06/18/2024 1 1 Chief Complaint and Reason for Visit Chief Complaint Skin irritation Additional Source Comments (unrecognized sect ion and content) No Status Records FoundNo Status Records FoundNo Status Records FoundNo Status Records FoundNo Status Records Found INFORMATION SOURCE (unrecogn ized section and content) DATE CREATED AUTHOR 08/22/2017 [facility] DATE CREATED AUTHOR AUTHOR'S ORGANIZ ATION 08/04/2022 [facility] DATE CREATED AUTHOR AUTHOR'S ORGANIZ ATION 08/24/2023 [facility] DATE CREATED AUTHOR AUTHOR'S ORGANIZ ATION 10/20/2023 [facility] DATE CREATED AUTHOR AUTHOR'S ORGANIZ ATION 11/10/2023 [facility] dical Specialists [facility] Care Teams (unrecognized sec tion and content) Lean Sensei Relationship Specialty Start Date End Date 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 NP [address] [place] [address] Nurse Practitioner Family Medicine 02/26/22 Lean Sensei Relationship Specialty Start Date End Date 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 CNP [address] [place] [address] Family Medicine 05/17/23 Lean Sensei Relationship Specialty Start Date End Date 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 CNP [address] [place] [address] Family Medicine 05/17/23 Lean Sensei Relationship Specialty Start Date End Date 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 CNP [address] [place] [address] Family Medicine 05/17/23 Lean Sensei Relationship Specialty Start Date End Date 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 HOME CARE SCHEDULER [address] [place] [address] PCP - General Family Medicine 07/12/23 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, HOME CARE SCHEDULER [address] [place] [address] Family Medicine 05/17/23 Lean Sensei Relationship Specialty Start Date End Date 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, HOME CARE SCHEDULER [address] [place] [address] PCP - General Family Medicine 07/12/23 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, HOME CARE SCHEDULER [address] [place] [address] Family Medicine 05/17/23 Lean Sensei Relationship Specialty Start Date End Date 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, HOME CARE SCHEDULER [address] [place] [address] PCP - General Family Medicine 07/12/23 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, HOME CARE SCHEDULER [address] [place] [address] Family Medicine 05/17/23 Lean Sensei Relationship Specialty Start Date End Date 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, HOME CARE SCHEDULER [address] [place] [address] PCP - General Family Medicine 07/12/23 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, HOME CARE SCHEDULER [address] [place] [address] Family Medicine 05/17/23 Lean Sensei Relationship Specialty Start Date End Date 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, HOME CARE SCHEDULER [address] [place] [address] PCP - General Family Medicine 07/12/23 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, HOME CARE SCHEDULER [address] [place] [address] Family Medicine 05/17/23 Lean Sensei Relationship Specialty Start Date End Date 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 HOME CARE SCHEDULER [address] [place] [address] PCP - General Family Medicine 07/12/23 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, HOME CARE SCHEDULER [address] [place] [address] Family [facility] 05/17/23 Team Status: Active Member Role Status Dates Nannette Long APRN DIAGNOSTIC TECHNOLOGIST-C Primary Care Provider Active Team Status: Inactive Member Role Status Dates Nannette Long APRN DIAGNOSTIC TECHNOLOGIST-C Primary Care Provider Active Start: October 19, 2023 End: October 19, 2023 Jyoti Mendoza APRN Attending Provider Active Start: October 19, 2023 End: October 19, 2023 Source Comments (unrecognize d section and content) In the event this informatio n is protected by the Federal Confidentiality of Alcohol and Drug Abuse Patient Records regulations: The Federal rules restrict any use of the information to criminally investigate or prosecute any alcohol or drug abuse patient.[facility] the event this information is protected by the Federal Confidentiality of Alcohol and Drug Abuse Patient Records regulations: The Federal rules restrict any use of the information to criminally investigate or prosecute any alcohol or drug abuse patient.[facility] the event this information is protected by the Federal Confidentiality of Alcohol and Drug Abuse Patient Records regulations: The Federal rules restrict any use of the information to criminally investigate or prosecute any alcohol or drug abuse patient.[facility] the event this information is protected by the Federal Confidentiality of Alcohol and Drug Abuse Patient Records regulations: The Federal rules restrict any use of the information to criminally investigate or prosecute any alcohol or drug abuse patient.[facility] the event this information is protected by the Federal Confidentiality of Alcohol and Drug Abuse Patient Records regulations: The Federal rules restrict any use of the information to criminally investigate or prosecute any alcohol or drug abuse patient.[facility] the event this information is protected by the Federal Confidentiality of Alcohol and Drug Abuse Patient Records regulations: The Federal rules restrict any use of the information to criminally investigate or prosecute any alcohol or drug abuse patient.[facility] the event this information is protected by the Federal Confidentiality of Alcohol and Drug Abuse Patient Records regulations: The Federal rules restrict any use of the information to criminally investigate or prosecute any alcohol or drug abuse patient.[facility] the event this information is protected by the Federal Confidentiality of Alcohol and Drug Abuse Patient Records regulations: The Federal rules restrict any use of the information to criminally investigate or prosecute any alcohol or drug abuse patient.[facility] the event this information is protected by the Federal Confidentiality of Alcohol and Drug Abuse Patient Records regulations: The Federal rules restrict any use of the information to criminally investigate or prosecute any alcohol or drug abuse patient.[facility] the event this information is protected by the Federal Confidentiality of Alcohol and Drug Abuse Patient Records regulations: The Federal rules restrict any use of the information to criminally investigate or prosecute any alcohol or drug abuse patient.[facility] Reason for Visit (unrecogniz ed section and content) Reason Comments New Patient Numbness/Tingling Numbness Tingling kaur nds and feet Specialty Diagnoses / Procedures Referred By Contac t Referred To Contact [facility] Diagnoses Spinal stenosis at L4-L5 level Cervical spinal stenosis Procedures AMB REFERRAL TO NEUROSURGERY 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, HOME CARE SCHEDULER [address] [id number] Lewis Hernandez MD [facility] [address] [place] [address] Referral ID Status Reason Start Date Expiration Date V isits Requested Visits Authorized [id number] Outside PCP 05/14/2023 11/10/2023 1 1 Specialty Diagnoses / Procedures Referred By Contac t Referred To Contact Diagnoses Pre-op testing Procedures REFER TO PACC - PRE ANESTHESIA CONSULTATION CLINIC OFFICE/OUTPATIENT [facility] 60 MINUTES Rufina Wiggins PA-C [address] 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 [facility] [employer] [facility]. provides no warranty or guarantee of the accuracy or completeness of information in this document.
[2023-12-11 10:09] LABS: Basophils Percent Auto 0.4 % (0.2-2.0); Eosinophils Absolute Auto 0.2 10^3/uL (0.0-0.7); Eosinophils Percent Auto 1.7 % (0.9-7.0); Hematocrit 41.5 % (42.0-54.0); Hemoglobin 13.4 g/dL (14.0-18.0); Immature Granulocytes Abs Auto 0.04 10^3/uL (0.00-0.03); Immature Granulocytes Pct Auto 0.4 % (0.0-0.5); Lymphocytes Absolute Auto 0.7 10^3/uL (1.2-3.8); Lymphocytes Percent Auto 7.7 % (20.5-60.0); Mean Corpuscular HGB Conc 32.3 g/dL (29.9-35.2); Mean Corpuscular Hemoglobin 30.2 pg (25.9-34.0); Mean Corpuscular Volume 93.5 fL (80.0-94.0); Mean Platelet Volume 11.1 fL (9.5-13.5); Monocytes Absolute Auto 0.6 10^3/uL (0.3-0.8); Monocytes Percent Auto 6.9 % (1.7-12.0); Neutrophils Absolute Auto 7.5 10^3/uL (1.4-6.5); Neutrophils Percent Auto 82.9 % (43.0-75.0); Platelet Count 216 10^3/uL (150-450); Red Blood Count 4.44 10^6/uL (4.70-6.10); Red Cell Distribution Width 14.6 % (11.0-15.0); White Blood Count 9.1 10^3/uL (4.0-11.0)
[2023-12-11 11:33] LABS: Anion Gap 15.5; BUN Creatinine Ratio 19.8; Calcium 9.1 mg/dL (8.5-10.1); Chloride 106 mmol/L (98-107); Estimated GFR (African America >60 (>=60 mL/min/1.73m^2); Estimated GFR (Non-African Ame 57 (>=60 mL/min/1.73m^2); Glucose 93 mg/dL (74-106); Potassium 4.5 mmol/L (3.5-5.1); Sodium 142 mmol/L (136-145)
[2023-12-11 12:22] LABS: Percent Iron Saturation 20.2 %
[2023-12-12 05:07] LABS: Transferrin 202 mg/dL (149-313)
== END 2023-12-11 09:42 | disposition home or self-care (01) ==
LOC: LAB 09:44
PROVIDERS: PCP Nurse Practitioner; Visit Provider Nurse Practitioner
DX: D64.9 Anemia, unspecified (principal); I10 Essential (primary) hypertension
CPT/HCPCS: 36415; 80048; 83540; 83550; 84466; 85025

== ENCOUNTER 2023-12-24 07:31 | Outpatient (RCR) | payer MEDICARE, SELFPAY ==
[2023-12-24 07:55] VITALS: BP 166/71; PULSE 73; TEMP 36.6
[2023-12-24] MEDS: IRON SUCROSE COMPLEX 200 MG in 0.9 % SODIUM CHLORIDE 100 ML 220 MG IV (08:00)
== END 2023-12-27 23:59 | disposition home or self-care (01) ==
LOC: INF 07:31
PROVIDERS: PCP Nurse Practitioner; Visit Provider Nurse Practitioner
DX: D50.9 Iron deficiency anemia, unspecified (principal)
CPT/HCPCS: 96365; J1756

== ENCOUNTER 2024-02-13 10:29 | Outpatient (OUT) | payer MEDICARE, SELFPAY ==
--- NOTE | 2024-02-13 10:32 | VEIN_ITS ---
The [place] [id number] Patient Name: SUNNI JACKSON MRN: [id number] date: 1940 Sex: M Assigned Patient Location: Current Patient Location: Accession/Order Number: [id number] Exam Date: 02/13/2024 10:35 Report Date: 02/14/2024 09:52 At the request of: BERENICE HERRING Procedure: VC US Carotid EXAM: VC US Carotid HISTORY: I65.23 COMPARISON: None. TECHNIQUE: Grayscale, color and Doppler FINDINGS: Right carotid PSV/EDV centimeters per second CCA: 73/93 ICA: 106/22 Bulb: 45/9 ECA: 204/33 with maximum area reduction measured 57% Vertebral: 27/10, antegrade ICA/CCA ratio: 1.5 Left carotid PSV/EDV centimeters per second: CCA: 102/22 ICA: 119/27 Bulb: 63/40 ECA: 121/13 Vertebral: 84/21, antegrade ICA/CCA ratio: 1.2 VEIN/VC US Carotid IMPRESSION: 0-49% flow stenosis bilateral internal carotid arteries 57% flow stenosis identified in the right external carotid artery. Electronically authenticated by: SAVAGE OATES Date: 02/14/2024 09:52
--- NOTE | 2024-02-13 10:32 | VEIN_ITS ---
The [address] [address] Patient Name: SUNNI JACKSON MRN: [id number] date: 1940 Sex: M Assigned Patient Location: Current Patient Location: Accession/Order Number: [id number] Exam Date: 02/13/2024 10:35 Report Date: 02/13/2024 18:47 At the request of: BERENICE HERRING Procedure: VC SEGMENTAL PRESSURES EXAM: VC SEGMENTAL PRESSURES HISTORY: I73.9 History of carotid endarterectomy. Peripheral vascular disease. COMPARISON: None. TECHNIQUE: Resting ABIs and segmental pressures were obtained. FINDINGS: Right resting NASIR 0.7. Left resting NASIR 0.76. On the right there is a pressure gradient from the brachial cuff to the upper thigh cuff suggesting iliac disease. On the left there is a pressure gradient from the distal thigh cuff to the proximal calf cuff suggesting distal superficial femoral artery/popliteal arterial disease. 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 Electronically authenticated by: Jessica GOODMAN Date: 02/13/2024 18:47
--- OUTSIDE RECORDS SUMMARY | 2024-02-13 10:50 | XMS_ITS | CCD ---
Author Organization [facility] Care Team Providers Care Science Education Professor Name Role Phone AICHHOLZ, GRAVEL INSPECTOR DEVI Attending Unavailable AICHHOLZ, GRAVEL INSPECTOR DEVI Consulting Unavailable AICHHOLZ, GRAVEL INSPECTOR DEVI Primary Care Unavailable AICHHOLZ, GRAVEL INSPECTOR DEVI Admitting Unavailable AICHHOLZ, GRAVEL INSPECTOR DEVI Attending Unavailable AICHHOLZ, GRAVEL INSPECTOR DEVI Consulting Unavailable AICHHOLZ, GRAVEL INSPECTOR DEVI Primary Care Unavailable AICHHOLZ, GRAVEL INSPECTOR DEVI Admitting Unavailable DR SAVAGE OATES V Consulting Unavailable ALINE, YULIYA Admitting Unavailable ALINE, YULIYA Attending Unavailable AICHHOLZ, GRAVEL INSPECTOR DEVI Primary Care Unavailable ALINE, YULIYA Consulting Unavailable AICHHOLZ, GRAVEL INSPECTOR DEVI Admitting Unavailable AICHHOLZ, GRAVEL INSPECTOR DEVI Consulting Unavailable AICHHOLZ, GRAVEL INSPECTOR DEVI Attending Unavailable AICHHOLZ, GRAVEL INSPECTOR DEVI Primary Care Unavailable DR ARTEM MIRANDA Consulting Unavailable AICHHOLZ, GRAVEL INSPECTOR DEVI Attending Unavailable AICHHOLZ, GRAVEL INSPECTOR DEVI Consulting Unavailable AICHHOLZ, GRAVEL INSPECTOR DEVI Primary Care Unavailable AICHHOLZ, GRAVEL INSPECTOR DEVI Admitting Unavailable DR BART AL Admitting Unavailabl e SERVANDO, DR BART Craig Attending Unavailabl e DR BART AL Consulting Unavailabl e AICHHOLZ, GRAVEL INSPECTOR DEVI Primary Care Unavailable CHRISTEN ARREDONDO Consulting Unavailable SOPHIE SLATER Consulting Unavailable GISELLE GORDILLO Consulting Unavailable DR SAVAGE OATES V Consulting Unavailable AICHHOLZ, GRAVEL INSPECTOR DEVI Attending Unavailable AICHHOLZ, GRAVEL INSPECTOR DEVI Primary Care Unavailable AICHHOLZ, GRAVEL INSPECTOR DEVI Admitting Unavailable AICHHOLZ, GRAVEL INSPECTOR DEVI Consulting Unavailable AICHHOLZ, GRAVEL INSPECTOR DEVI Attending Unavailable AICHHOLZ, GRAVEL INSPECTOR DEVI Consulting Unavailable AICHHOLZ, GRAVEL INSPECTOR DEVI Primary Care Unavailable AICHHOLZ, GRAVEL INSPECTOR DEVI Admitting Unavailable Aichholz INFORMATION SYSTEMS COORDINATOR, Devi Unavailable Aichholz GRAVEL INSPECTOR, Devi Jess Unavailable Aichholz GRAVEL INSPECTOR, Devi Jess Primary Care Provider MICHELLE, GANDHIVARMA Attending Unavail able AICHHOLZ, DEVI JESS Primary Care Unavailable AICHHOLZ, DEVI JESS Primary Care Unavailable CLOVIS GUNDERSON Referring Unavailable AICHHOLZ, DEVI JESS Primary Care Unavailable MICHELLE, GANDHIVARMA Referring Unavail able MICHELLE, GANDHIVARMA Attending Unavail able AICHHOLZ, DEVI JESS Referring Unavailable MICHELLE, GANDHIVARMA Referring Unavail able Aichholz INFORMATION SYSTEMS COORDINATOR, Devi Unavailable Netta GONZALES, Víctor Primary Care Provider Jovany Ovalle DO Unavailable [phone] Víctor Chadwick MD Primary Care Provider Jovany Ovalle DO Attending Provider [phone] 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 Primary Care Provider Jovany Ovalle Attending Unavailable Jovany Ovalle Admitting Unavailable Aichholz, Devi Lopez Primary Care Unavailable Mercedes KEITH, Nannette Cooper Primary Care Provider DELMY MENA Attending Unavailable AICHHOLZ, DEVI Attending Unavailable AICHHOLZ, DEVI Attending Unavailable BIJOVANY PAREDES S Attending Unavailable AICHHOLZ, DEVI Attending Unavailable AICHHOLZ, DEVI Attending Unavailable AICHHOLZ, DEVI Attending Unavailable AICHHOLZ, DEVI Attending Unavailable BIEDENZANDRA, JOVANY S Attending Unavailable AICHHOLZ, DEVI Referring Unavailable AICHHOLZ, DEVI Attending Unavailable BIEDENZANDRA, JOVANY S Attending Unavailable AICHHOLZ, DEVI Referring Unavailable BIEDENBACH, JOVANY S Attending Unavailable AICHHOLZ, DEVI Referring Unavailable BIEDENBACHJOVANY S Attending Unavailable Allergies Allergy Classification Reported Allergen(s) Allergy Type Date of Onset Reaction(s) Facility Benzalkonium (1 source) Benzalkonium Drug Allergy 4 Rash [facility] (1 source) Bacitracin / Neomycin / Polymyxin B Drug Allergy 4 [facility] (1 source) black walnut pollen extract Drug Allergy [facility] (16 sources) Amoxicillin Drug Allergy 3 Nausea Only [facility] (18 sources) Bacitracin Drug Allergy 1 rash, swelling [facility] (16 sources) Bacitracin / Polymyxin B Drug Allergy 3 Swelling [facility] (16 sources) HMG-CoA reductase inhibitor Drug Intolerance 1 [facility] (16 sources) montelukast Drug Allergy 3 [facility] (18 sources) Neomycin Drug Allergy 1 rash, swelling [facility] (18 sources) Polymyxin B Drug Allergy 1 rash, swelling [facility] (16 sources) Amoxicillin-Pot Clavulanate Drug Allergy 3 GI intolerance [facility] (16 sources) Other Propensity to adverse reactions 9 [facility] (7 sources) Benzalkonium; Translations: [BENZALKONIUM CHLORIDE] Drug Allergy 4 Rash [facility] (15 sources) Benzalkonium Drug Allergy 4 Rash [facility] (1 source) Bacitracin Drug Allergy 1 [facility] (1 source) Neomycin Drug Allergy 1 [facility] (1 source) polymyxin B Drug allergy (disorder) 1 [facility] (1 source) bacitracin / neomycin / polymyxin b Drug Allergy 9 [facility] (1 source) HMG-CoA reductase inhibitor Propensity to adverse reactions to drug 1 [facility] Medications Current Medications Medication Drug Class(es) Dates Sig (Normalized) Sig (Original) [id number] 200 actuat albuterol 0.09 mg/actuat metered dose inhaler (20 sources) beta2-Adrenergic Agonist Start: 04-03-2023 End: 05-03-2023 take 2 puff(s) by inhalation every six hours for wheezing albuterol HFA 90 mcg/act inhaler Indications: COPD exacerbation (CMS/HCC) Inhale 2 puffs every 6 (six) hours if needed for wheezing 18 g 1 04/03/2023 Active Start: 04-03-2023 take 2 puff(s) by mo uth every six hours for wheezing albuterol HFA (PROVENTIL HFA, VENTOLIN HFA) 90 mcg/actuation inhaler inhale 2 puffs by mouth and INTO THE LUNGS every 6 hours if needed for wheezing 04/03/2023 Active amLODIPine 10 mg oral tablet (20 sources) Dihydropyridine Calcium Channel Usama Start: 09-24-2023 End: 03-17-2024 take 1 tablet by mouth once daily amLODIPine (Norvasc) 10 MG tablet Indications: Primary hypertension (CMS/HCC) Take 1 tablet (10 mg) by mouth Daily 90 tablet 1 12/18/2023 03/17/2024 Active Start: 12-02-2018 End: 07-12-2023 take 1 tablet by mouth once amLODIPine (NORVASC) 5 mg tablet Take 1 tablet by mouth every afternoon. 0 03/25/2023 07/12/2023 Discontinued (Dosage adjustment) ascorbic acid 113 mg / beta carotene 7160 mg / cuprous oxide 0.4 mg / dl-alpha tocopheryl acetate 100 unt / zinc oxide 17.4 mg oral tablet (6 sources) Vitamin C take 1 tablet by mouth once daily at breakfast vit A,C,F-Vcoj-Xsueeo (PRESERVISION AREDS) 2,148 mcg-113 mg-45 mg-17.4mg tab Take 1 tablet by mouth daily with breakfast. Active ascorbic acid 113 mg / copper gluconate 0.4 mg / docosahexaenoic acid 87.5 mg / eicosapentaenoic acid 163 mg / lutein 2.5 mg / tocopherol acetate 100 unt / zeaxanthin 0.5 mg / zinc oxide 17.4 mg oral capsule (16 sources) Vitamin C Multiple Vitamins-Minerals (PreserVision AREDS 2) capsule as directed Orally Active aspirin 81 mg delayed release oral tablet (20 sources) Platelet Aggregation Inhibitor, Nonsteroidal Anti-inflammatory Drug Start : 09-23 End: 12-22 take 1 tablet by mouth in the morning aspirin 81 MG EC tablet Indications: Primary hypertension (CMS/HCC) Take 1 tablet (81 mg) by mouth in the morning. 90 tablet 1 09/24/2023 12/23/2023 Active benzonatate 200 mg oral capsule (8 sources) Non-narcotic Antitussive Start : 09-10 End: 12-17 take 1 capsule by mouth three times daily for cough benzonatate (Tessalon) 200 MG capsule TAKE 1 CAPSULE BY MOUTH THREE TIMES DAILY FOR COUGH FOR 30 DAYS 09/11/2023 12/18/2023 Discontinued (Therapy completed) 120 actuat budesonide 0.16 mg/actuat / formoterol fumarate 0.0048 mg/actuat / glycopyrrolate 0.009 mg/actuat metered dose inhaler (11 sources) Corticosteroid, beta2-Adrenergic Agonist budesonide-glycopyr- form oterol (BREZTRI AEROSPHERE) 160-9-4.8 mcg/actuation HFA aerosol inhaler Inhale 2 Puffs as instructed. Active clopidogrel 75 mg oral tablet (1 source) P2Y12 Platelet Inhibitor Start : 07-22 take 1 tablet by mouth in the morning clopidogreL (PLAVIX) 75 mg tablet Take 1 tablet (75 mg total) by mouth in the morning. 07/22/2020 Active cyclobenzaprine hydrochloride 10 mg oral tablet (8 sources) Muscle Relaxant Start : 08-06 End: 12-17 take 1 tablet by mouth every eight hours as needed cyclobenzaprine (Flexeril) 10 MG tablet Take 10 mg by mouth every 8 (eight) hours if needed 08/07/2023 12/18/2023 Discontinued (Therapy completed) docusate sodium 100 mg oral capsule (8 sources) Start : 08-06 End: 12-17 take 1 capsule by mouth in the morning docusate sodium (Colace) 100 MG capsule Take 100 mg by mouth in the morning and 100 mg before bedtime. 08/07/2023 12/18/2023 Discontinued (Therapy completed) doxycycline hyclate 100 mg oral tablet (1 source) Tetracycline-clas s Drug Start : 04-03 End: 04-13 doxycycline (Vibra-Tabs) 100 MG tablet Indications: COPD exacerbation (CMS/HCC) Take 1 tablet (100 mg) by mouth in the morning and 1 tablet (100 mg) before bedtime. Do all this for 10 days. Take with a full glass of water and do not lie down for at least 30 minutes after.. 20 tablet 0 04/03/2023 04/13/2023 Active fluorouracil 50 mg/ml topical cream (15 sources) Nucleoside Metabolic Inhibitor Start : 04-05 fluorouracil (Efudex) 5 % cream Apply 1 application topically at bedtime HS to Forehead ,temples, scalp and part line 3 times a week. 04/05/2023 Active hydroCHLOROthiazide 25 mg oral tablet (2 sources) Thiazide Diuretic Start : 10-02 take 0.5 tablet by mouth in the morning hydroCHLOROthiazide (HYDRODiuril) 25 MG tablet Indications: HTN (hypertension), benign (CMS/HCC) Take 0.5 tablets (12.5 mg) by mouth in the morning. 15 tablet 3 10/02/2022 Active Start: 10-10-2018 take 1 capsule by mo [facility] once daily hydroCHLOROthiazide (MICROZIDE) 12.5 mg capsule Take 1 capsule (12.5 mg total) by mouth daily. 0 10/10/2018 Active hydrOXYzine hydrochloride 25 mg oral tablet (10 sources) Antihistamine Start: 10-19-2023 End: 12-18-2023 hydrOXYzine HCl (Atarax) 25 MG tablet Twice daily 10/19/2023 Active lisinopril 40 mg oral tablet (20 sources) Angiotensin Converting Enzyme Inhibitor Start: 10-10-2018 End: 03-17-2024 take 1 tablet by mouth once daily lisinopril 40 MG tablet Indications: Primary hypertension (CMS/HCC) Take 1 tablet (40 mg) by mouth Daily 90 tablet 1 12/18/2023 03/17/2024 Active mupirocin 0.02 mg/mg topical ointment (4 sources) RNA Synthetase Inhibitor Antibacterial Start: 06-19-2023 End: 08-06-2023 mupirocin (BACTROBAN) 2 % ointment Apply 1/2 ointment with a cotton swab in each nostril 2x daily for five days preop 22 g 0 06/19/2023 08/06/2023 Active omeprazole 40 mg delayed release oral capsule (3 sources) Proton Pump Inhibitor Start: 01-18-2024 End: 01-17-2025 take 1 capsule by mouth before mealtime omeprazole (PriLOSEC) [address] capsule Indications: Dysphagia, unspecified type Take 1 capsule (40 mg) by mouth in the morning. Take before meals. Do not crush or chew.. 30 capsule 1 01/18/2024 01/17/2025 Active oxyCODONE hydrochloride 5 mg oral tablet (8 sources) Opioid Agonist Start: 08-07-2023 End: 12-18-2023 take 1 tablet by mouth every six hours as needed oxyCODONE (Roxicodone) 5 MG immediate release tablet Take 5 mg by mouth every 6 (six) hours if needed 08/07/2023 12/18/2023 Discontinued (Therapy completed) piroxicam 10 mg oral capsule (1 source) Nonsteroidal Anti-inflammatory Drug Start: 12-25-2022 End: 12-25-2023 take 1 capsule by mouth in the morning piroxicam (Feldene) 10 MG capsule Indications: Degenerative disc disease, cervical , Cervical spinal stenosis Take 1 capsule (10 mg) by mouth in the morning. 30 capsule 11 12/25/2022 12/25/2023 Active predniSONE 20 mg oral tablet (1 source) Start: 04-03-2023 End: 04-13-2023 take 1 tablet by mouth in the morning predniSONE (Deltasone) 20 MG tablet Indications: COPD exacerbation (CMS/HCC) Take 1 tablet (20 mg) by mouth in the morning for 10 days. 10 tablet 0 04/03/2023 04/13/2023 Active triamcinolone acetonide 0.001 mg/mg topical ointment (7 sources) Corticosteroid Start: 10-19-2023 Triamcinolone Acetonide 0.1 % ointment Active 1 APPLIC TOPICAL Twice daily October 18, 2023 11:00pm Start: 04-09-2023 End: 07-12-2023 take 2 spray(s) [...] morning. 16.5 g 5 04/09/2023 05/09/2023 Active vit C/E/Zn/coppr/lutein/zeax an (PRESERVISION AREDS-2 ORAL) (1 source) take 1 tablet by mouth once daily vit C/E/Zn/coppr/lutein/zeaxan (PRESERVISION AREDS-2 ORAL) Take 1 tablet by mouth daily. Active Completed/Discontinued Medications Medication Drug Class(es) Dates Sig (Normalized) Sig (Original) montelukast 10 mg oral tablet (5 sources) [...] Classification Problem Date Documented Da te Episodic/Chronic Chronic kidney disease (2 sources) Chronic kidney disease; Translations: [Chronic kidney disease, unspecified] Onset: 4 07-04-2023 Chronic Chronic obstructive pulmonary disease and bronchiectasis (20 sources) Bronchiectasis; Translations: [Bronchiectasis, uncomplicated] Onset: 3 10-31-2022 Chronic Deficiency and other anemia (6 sources) Anemia, unspecified; Translations: [ANEMIA UNSPECIFIED] Onset: 2 Episodic Deficiency and other anemia (11 sources) Iron deficiency anemia; Translations: [Iron deficiency anemia, unspecified] Onset: 4 12-18-2023 Episodic Disorders of lipid metabolism (20 sources) Mixed hyperlipidemia; Translations: [Mixed hyperlipidemia] Onset: 1 Resolved: 3 04-03-2023 Chronic E Codes: Fall (1 source) Fall (on)(from) sidewalk curb, initial encounter; Translations: [FALL ON FROM SIDEWALK CURB INITIAL] Onset: 3 Episodic Esophageal disorders (18 sources) Laryngopharyngeal reflux; Translations: [Gastro-esophageal reflux disease without esophagitis] Onset: 3 10-31-2022 Chronic Essential hypertension (20 sources) Essential (primary) hypertension; Translations: [Essential hypertension] Onset: 1 Resolved: 3 Chronic Occlusion or stenosis of precerebral arteries (20 sources) Occlusion and stenosis of left carotid artery; Translations: [Carotid artery stenosis] Onset: 1 Chronic Other aftercare (1 source) detention (current) use of aspirin; Translations: [LONG-TERM CURRENT USE OF ASPIRIN] Onset: 3 Episodic Other aftercare (1 source) Other intermediate (current) drug therapy; Translations: [OTH LONG-TERM CURRENT DRUG THERAPY] Onset: 3 Episodic Other ear and sense organ disorders (18 sources) Decreased hearing ; Translations: [Unspecified hearing loss, bilateral] Onset: 3 09-05-2022 Chronic Other ear and sense organ disorders (16 sources) Chronic left myringitis; 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, left ear] Onset: 3 Resolved: 3 10-31-2022 Chronic Other gastrointestinal disorders (1 source) Dysphagia, unspecified; Translations: [Dysphagia, unspecified] Onset: 4 Episodic Other male genital disorders (17 sources) Balanitis xerotica obliterans; 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] Onset: 9 10-31-2022 Chronic Other nervous system disorders (20 sources) Myelomalacia; Translations: [Other specified diseases of [...] Chronic Other nutritional; endocrine; and metabolic disorders (15 sources) Hypocalcemia; Translations: [Hypocalcemia] Onset: 4 04-10-2023 Chronic Other upper respiratory disease (16 sources) Chronic rhinitis; Translations: [Chronic rhinitis] Onset: 4 04-09-2023 Chronic Other upper respiratory disease (15 sources) Allergic rhinitis; Translations: [Allergic rhinitis, unspecified] Onset: 4 05-14-2023 Chronic Residual codes; unclassified (1 source) Tobacco use; Translations: [Tobacco user] Onset: 4 Episodic Spondylosis; intervertebral disc disorders; other back problems (20 sources) Degeneration of cervical intervertebral disc; Translations: [Other cervical disc degeneration, unspecified cervical region] Onset: 3 12-12-2022 Chronic Substance-related disorders (6 sources) Nicotine dependence, cigarettes, uncomplicated; Translations: [Cigarette smoker ] Onset: 3 01-31-2024 Chronic Superficial injury; contusion (4 sources) Contusion of other part of head, initial encounter; Translations: [Abrasion of other part of head, initial encounter] Onset: 3 Episodic Thyroid disorders (20 sources) Nontoxic single thyroid nodule; Translations: [Thyroid nodule] Onset: 2 Chronic Unclassified (3 sources) COUGH, UNSPECIFIED; Translations: [COUGH, UNSPECIFIED] Onset: 3 Past or Other Problems Problem Classification Problem Date Documented Da te Episodic/Chronic Allergic reactions (5 sources) Inflammatory dermatosis; Translations: [Dermatitis, unspecified] Onset: 01-18-2024 Resolved: 01-18-2024 10-19-2023 Episodic Deficiency and other anemia (20 sources) Anemia; Translations: [Anemia, unspecified] Onset: 05-14-2023 07-12-2023 Episodic Immunizations and screening for infectious disease (16 sources) [employer] antibody positive; Translations: [Other specified abnormal immunological findings in serum] Onset: 10-31-2022 10-31-2022 Episodic Malaise and fatigue (16 sources) Asthenia; Translations: [Weakness] Onset: 10-03-2022 10-03-2022 Episodic Mood disorders (9 sources) Mood disorders Onset: 12-18-2023 12-18-2023 Other connective tissue disease (16 sources) Bilateral trochanteric bursitis; Translations: [Trochanteric bursitis, right hip] Onset: 11-28-2022 11-28-2022 Episodic Other ear and sense organ disorders (16 sources) Mixed conductive AND sensorineural hearing loss; Translations: [Mixed conductive and sensorineural hearing loss, unspecified] Onset: 10-31-2022 Resolved: 10-31-2022 10-31-2022 Chronic Other ear and sense organ disorders (16 sources) Sudden hearing loss; Translations: [Sudden idiopathic hearing loss, left ear] Onset: 10-31-2022 Resolved: 10-31-2022 10-31-2022 Episodic Other gastrointestinal disorders (20 sources) Dysphagia; Translations: [Dysphagia, unspecified] Onset: 08-16-2023 08-16-2023 Episodic Other lower respiratory disease (17 sources) Dyspnea; Translations: [Shortness of breath] Onset: 07-27-2020 Resolved: 10-31-2022 10-31-2022 Episodic Other nervous system disorders (16 sources) Numbness and tingling sensation of skin; Translations: [Anesthesia of skin] Onset: 10-03-2022 10-03-2022 Episodic Other nervous system disorders (15 sources) H/O: ear disorder; Translations: [Personal history of other diseases of the nervous system and sense organs] Onset: 05-14-2023 05-14-2023 Episodic Other nutritional; endocrine; and metabolic disorders (16 sources) Overweight in adulthood with body mass index of 25 or more but less than 30; Translations: [Body mass index (BMI) 29.0-29.9, adult] Onset: 04-03-2023 04-03-2023 Episodic Other screening for suspected conditions (not mental disorders or infectious disease) (20 sources) Abnormal finding of blood chemistry, unspecified; Translations: [Encounter for screening for malignant neoplasm of prostate] Onset: 01-07-2022 Episodic Otitis media and related conditions (20 sources) Dysfunction of eustachian tube; Translations: [Unspecified Eustachian tube disorder, unspecified ear] Onset: 09-05-2022 Resolved: 10-31-2022 09-05-2022 Episodic Peripheral and visceral atherosclerosis (20 sources) Peripheral vascular disease; Translations: [Peripheral vascular disease, unspecified] Onset: 07-27-2020 Resolved: 10-31-2022 10-31-2022 Chronic Residual codes; unclassified (1 source) Other specified postprocedural states; Translations: [OTH SPECIFIED POSTPROCEDURAL STATES] Onset: 11-01-2021 Episodic Residual codes; unclassified (20 sources) Tobacco user; Translations: [Tobacco use] Onset: 05-14-2023 07-12-2023 Episodic Residual codes; unclassified (19 sources) H/O Spinal surgery; Translations: [Other specified postprocedural states] Onset: 08-06-2023 08-06-2023 Episodic Spondylosis; intervertebral disc disorders; other back problems (20 sources) Spinal stenosis in cervical region; Translations: [Spinal stenosis, cervical region] Onset: 09-05-2022 09-05-2022 Episodic Unclassified (1 source) COUGH, UNSPECIFIED; Translations: [COUGH, UNSPECIFIED] Onset: 05-24-2022 Results Test Name Value Interpretation Reference Range Facility [place] esophaguson 01-10-2024 FL esophagus [facility] [place] [address] Fluoroscopy Report Signed Patient: Sunni Blackburn MR#: [id number] : 1940 Acct:[id number] Age/Sex: 83 / M ADM Date: 01/10/24 Loc: XD Room: Type: [facility] Attending Dr: Jovany Ovalle DO Copies to: Jovany Ovalle DO Ordering Provider: Jovany Ovalle DO Date of Service: 01/10/24 FL/FL esophagus: dysphagia FL esophagus 01/10/2024 8:27 AM SIGNS AND SYMPTOMS: Dysphagia after cervical fusion PROTOCOL: Fluoroscopic images of the esophagus were obtained after oral gas crystals administration and moderate dilatation. There is contrast material. COMPARISON: None FINDINGS: Similar to the modified barium swallow study foramen on the same date there is stasis within the vallecula. There is otherwise adequate transit of contrast through the esophagus with tertiary contractions in the distal third of the esophagus suggesting esophageal dysmotility. Mild mucosal thickening is noted in the distal esophagus suggesting reflux esophagitis. Active gastroesophageal reflux is demonstrated during the exam. There is no evidence of hiatal hernia. No evidence of mass, stricture, or occlusion. Cumulative Air Kerma in mGy: 85.80 mGy FL/FL esophagus IMPRESSION: Esophageal dysmotility is noted. Mild mucosal thickening is noted in the distal esophagus with active gastroesophageal reflux suggesting reflux esophagitis. No evidence of mass, stricture, ulceration, or diverticula. Impression dictated by: Jonah Edmonds M.D.01/10/2024 10:38 AM Dictation Location: [facility]-- Transcribed By: [facility] 01/10/24 1038 Dictated By: Jonah Edmonds II, MD 01/10/24 1035 Signed By: 01/10/24 1038 Normal [facility] Fluoroscopy reportOrdered By : Jonah Edmonds on 01-10-2024 RF Unspecified body region Views [facility] Main [place] [address] [place] [address] Fluoroscopy Report Signed Patient: Sunni Blackburn MR#: [id number] : 1940 Acct:[id number] Age/Sex: 83 / M ADM Date: 4 Loc: XD Room: Type: [facility] Attending Dr: Jovany Ovalle DO Copies to: Jovany Ovalle DO~ Ordering Provider: Jovany Ovalle DO Date of Service: 01/10/24 FL/FL esophagus: dysphagia [place] esophagus 01/10/2024 8:27 AM SIGNS AND SYMPTOMS: Dysphagia after cervical fusion PROTOCOL: Fluoroscopic images of the esophagus were obtained after oral gas crystals administration and moderate dilatation. There is contrast material. COMPARISON: None FINDINGS: Similar to the modified barium swallow study foramen on the same date there is stasis within the vallecula. There is otherwise adequate transit of contrast through the esophagus with tertiary contractions in the distal third of the esophagus suggesting esophageal dysmotility. Mild mucosal thickening is noted in the distal esophagus suggesting reflux esophagitis. Active gastroesophageal reflux is demonstrated during the exam. There is no evidence of hiatal hernia. No evidence of mass, stricture, or occlusion. Cumulative Air Kerma in mGy: 85.80 mGy FL/FL esophagus IMPRESSION: Esophageal dysmotility is noted. Mild mucosal thickening is noted in the distal esophagus with active gastroesophageal reflux suggesting reflux esophagitis. No evidence of mass, stricture, ulceration, or diverticula. Impression dictated by: Jonah Edmonds M.D.01/10/2024 10:38 AM Dictation Location: [facility]-24 Transcribed By: [facility] 01/10/24 1038 Dictated By: Jonah Edmonds II, MD 01/10/24 1035 Signed By: 01/10/24 1038 [facility] Work Phone: ALL CBC WITH AUTO DIFFon BASOPHILS ABSOLUTE AUTO 0 [facility] Basophils/100 WBC (Bld) 0.4 % 0.2 - 2.0 % [facility] Eosinophils/100 WBC (Bld) 1.7 % 0.9 - 7.0 % [facility] Erythrocyte distribution width (RBC) [Ratio] 14.6 % 11.0 - 15.0 % [facility] Hematocrit (Bld) [Volume fraction] 41.5 % Low 42.0 - 54.0 % [facility] Hemoglobin (Bld) [Mass/Vol] 13.4 g/dL Low 14.0 - 18.0 g/dL [facility] IMMATURE GRANULOCYTES ABS AUTO 0.04 High [facility] Immature granulocytes/100 WBC (Bld) 0.4 % 0.0 - 0.5 % [facility] Interpretation and review of laboratory results Abnormal [facility] LYMPHOCYTES ABSOLUTE AUTO 0.7 Low [facility] Lymphocytes/100 WBC (Bld) 7.7 % Low 20.5 - 60.0 % [facility] MCH (RBC) [Entitic mass] 30.2 pg 25.9 - 34.0 pg [facility] MCHC (RBC) [Mass/Vol] 32.3 g/dL 29.9 - 35.2 g/dL [facility] MCV (RBC) [Entitic vol] 93.5 fL 80.0 - 94.0 fL [facility] MONOCYTES ABSOLUTE AUTO 0.6 [facility] Monocytes/100 WBC (Bld) 6.9 % 1.7 - 12.0 % [facility] NEUTROPHILS ABSOLUTE AUTO 7.5 High [facility] Neutrophils/100 WBC (Bld) 82.9 % High 43.0 - 75.0 % [facility] Platelet mean volume (Bld) [Entitic vol] 11.1 fL 9.5 - 13.5 fL [facility] [facility] PLT [address] [facility] RBC 4.[address] [facility] WBC 9.1 [facility] CNPNon 10-18-2023 CNPN Telephone (NSFRVW) SUNNI BLACKBURN ([id number]) 1940 M Date Time Provider Department 10/18/23 REBECA MARTINEZ NSFRVW During your visit today, we recorded the following information about you: Isaías Bonilla 10/18/2023 11:22 AM Signed Received outside medical records from [facility], discharge notes, in chart for review. Jerry Delvalle, ARIEL 10/18/2023 11:41 AM Signed noted Allergies As of Date: 10/18/2023 Noted Allergy Reaction NEOSPORIN (BENZALKONIUM CHLORIDE) 07/12/2023 2 - Rash Comments: Blisters/scarring on skin. Date Reviewed: 08/23/2023 Reviewed by: Nilsa Nguyen OCCA - Fully Assessed Reason for Visit: Received Outside Medical Records [8566] Prescriptions as of 10/18/2023 - vit A,C,A-Sdqi-Dozaod (PRESERVISION AREDS) 2,148 mcg-113 mg-45 mg-17.4mg tab [...] surgery [Z98.890] 08/06/2023 Encounter Status:Closed by JERRY DELVALLE on 10/18/23 [facility] 09-03-2023 [facility] Telephone (NENewsrepsFV) SUNNI BLACKBURN ([id number]) 1940 M Date Time Provider Department 09/03/23 REBECA MARTINEZ [facility] During your visit today, we recorded the following information about you: Danay Rayo 09/03/2023 2:42 PM Signed [facility] PT Initial Exam report scanned to ORDISSIMO for review and completion Jerry Delvalle RN 09/03/2023 2:49 PM Signed Printed for review AND signature Allergies As of Date: 09/03/2023 Noted Allergy Reaction NEOSPORIN (BENZALKONIUM CHLORIDE) 07/12/2023 2 - Rash Comments: Blisters/scarring on skin. 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 Please call and advise Pt phone [phone] Jermaine Granado, RN 08/27/2023 9:46 AM Signed Called and spoke with patient. Answered all questions. Patient stated he was unaware that PT was ordered for him. Wants to complete PT at [facility]. PT fax number [phone]. Faxed to number with confirmation fax. Allergies As of Date: 08/27/2023 Noted Allergy Reaction NEOSPORIN (BENZALKONIUM CHLORIDE) 07/12/2023 2 - Rash Comments: Blisters/scarring on skin. Date Reviewed: 08/23/2023 Reviewed by: Nilsa Nguyen OCCA - Fully Assessed Reason for Visit: Patient Question [5171] Prescriptions as of 08/27/2023 - vit A,C,G-Fuur-Mxcplr (PRESERVISION AREDS) 2,148 mcg-113 mg-45 mg-17.4mg tab [...] Encounter Status:Closed by JERMAINE GRANADO on 08/27/23 [facility] CNOVon 08-23-2023 CNOV Office Visit (SPSNAV) RENETTASUNNI WALTERS ([id number]) 1940 M Date Time Provider Department 08/23/23 11:40 AM REBECA MARTINEZ SPSNAV During your visit today, we recorded the following information about you: Rebeca Martinez MD 08/23/2023 11:42 AM Signed SPINE SURGERY FOLLOW UP This is an in-person visit. SERVICE DATE: 08/23/2023 SURGERY DATE: 08/06/2023 Sunni Blackburn is a pleasant 89-year-old gentleman is here in spine surgery clinic for 2 weeks postoperative follow-up visit. He underwent a C4-5, C5-6 anterior cervical discectomy, allograft and instrumented fusion on 08/06/2023. Prior to surgery he was complaining of shocklike sensation in bilateral upper extremity for a year. He also noticed diffuse sensory disturbance up to fingers. 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 Since surgery [...] independently reviewed with the patient ASSESSMENT/PLAN Sunni Blackburn is a pleasant 89-year-old gentleman is here in spine surgery clinic for 2 weeks postoperative follow-up visit. He underwent a C4-5, C5-6 anterior cervical discectomy, allograft and instrumented fusion on 08/06/2023. Prior to surgery he was complaining of shocklike sensation in bilateral upper extremity for a year. He also noticed diffuse sensory disturbance up to fingers. 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 Since surgery [...] SIGNATURE: Rebeca Martinez MD PATIENT NAME: Sunni Blackburn DATE: August 23, 2023 TIME: 11:32 AM PAGER: Allergies As of Date: 08/23/2023 Noted Allergy Reaction NEOSPORIN (BENZALKONIUM CHLORIDE) 07/12/2023 2 - Rash Comments: Blisters/scarring on skin. Date Reviewed: 08/23/2023 Reviewed by: iNlsa Nguyen OCC (more content not included)... Normal [facility] RENETTASUNNI Trejo ([id number]) 1940 M Date Time Provider Department 07/13/23 CLOVIS GUNDERSON During your visit today, we recorded the following information about you: Clovis Gunderson, KAT.GRAVEL INSPECTOR 07/13/2023 7:58 AM Signed Patient was seen [...] 81 mg for surgery. Thank you Clovis Gunderson INFORMATION SYSTEMS COORDINATOR-C Allergies As of Date: 07/13/2023 Noted Allergy Reaction NEOSPORIN (BENZALKONIUM CHLORIDE) 07/12/2023 2 - Rash Comments: Blisters/scarring on skin. Date Reviewed: 07/12/2023 Reviewed by: Clovis Gunderson APRN.GRAVEL INSPECTOR - Fully Assessed Reason for Visit: Medication Problem [65] Prescriptions as of 07/13/2023 - vit A,C,A-Zahj-Mwzsjt (PRESERVISION AREDS) 2,148 mcg-113 mg-45 mg-17.4mg tab [...] (HCC) [I73.9] 07/27/2020 Encounter Status:Closed by CLOVIS GUNDERSON on 07/13/23 Normal [facility] ACTIVATED PARTIAL THROMBOPLA STIN TIMEOrdered By: Cata Miranda on 07-12-2023 aPTT Coag (PPP) [Time] 31.9 s [facility] Comment on above: Frozen Plasma Aliquo t CBC W Auto Differential pane l (Bld)on 07-12-2023 Basophils (Bld) [#/Vol] 0.04 10*3/uL [facility] Basophils/100 WBC (Bld) 0.5 % [facility] Differential cell count method Nom (Bld) Auto [facility] Eosinophils (Bld) [#/Vol] 0.21 10*3/uL [facility] Eosinophils/100 WBC (Bld) 2.4 % [facility] Erythrocyte distribution width (RBC) [Ratio] 15.0 % 11.5 - 15.0 % [facility] Hematocrit (Bld) [Volume fraction] 41.3 % 39.0 - 51.0 % [facility] Hemoglobin (Bld) [Mass/Vol] 13.5 g/dL 13.0 - 17.0 g/dL [facility] Immature granulocytes (Bld) [#/Vol] 0.05 10*3/uL [facility] Immature granulocytes/100 WBC (Bld) 0.6 % [facility] Lymphocytes (Bld) [#/Vol] 1.53 10*3/uL [facility] Lymphocytes/100 WBC (Bld) 17.4 % [facility] MCH (RBC) [Entitic mass] 30.1 pg 26.0 - 34.0 pg [facility] MCHC (RBC) [Mass/Vol] 32.7 g/dL 30.5 - 36.0 g/dL [facility] MCV (RBC) [Entitic vol] 92.0 fL 80.0 - 100.0 fL [facility] Monocytes (Bld) [#/Vol] 0.63 10*3/uL [facility] Monocytes/100 WBC (Bld) 7.2 % [facility] Neutrophils (Bld) [#/Vol] 6.33 10*3/uL [facility] Neutrophils/100 WBC (Bld) 71.9 % [facility] Nucleated RBC (Bld) [#/Vol] [facility] Nucleated RBC/100 WBC (Bld) [Ratio] 0.0 % /100 WBC [facility] Platelet mean volume (Bld) [Entitic vol] 12.2 fL 9.0 - 12.7 fL [facility] Platelets (Bld) [#/Vol] 230 10*3/uL [facility] RBC (Bld) [#/Vol] 4.49 10*6/uL 4.20 - 6.0 0 m/uL [facility] WBC (Bld) [#/Vol] 8.79 10*3/uL [facility] Basophils (Bld) [#/Vol] 0.04 10*3/uL Normal <0.11 [facility] Comment on above: Order Comment: Speci men Type: BLOOD SPECIMEN Ordering Facility: [facility] Address: [address] [place] [address] Performed By: #### 3 4528-0, 43554-0 #### [facility] CLIA [id number] [address] [place] [address] [place] Basophils/100 WBC (Bld) 0.5 % Normal [facility] Comment on above: Order Comment: Speci men Type: BLOOD SPECIMEN Ordering Facility: [facility] Address: [address] [place] [address] Performed By: #### 3 4528-0, 61674-9 #### [facility] CLIA [id number] [address] [place] [address] [place] Differential cell count method Nom (Bld) Auto Normal [facility] Comment on above: Order Comment: Speci men Type: BLOOD SPECIMEN Ordering Facility: [facility] Address: [address] [place] [address] Performed By: #### 3 4528-0, 86226-9 #### [facility] CLIA [id number] [address] [place] [address] [place] Eosinophils (Bld) [#/Vol] 0.21 10*3/uL Normal <0.46 [facility] Comment on above: Order Comment: Speci men Type: BLOOD SPECIMEN Ordering Facility: [facility] Address: [address] [place] [address] Performed By: #### 3 4528-0, 00183-1 #### [facility] CLIA [id number] [address] [place] [address] [place] Eosinophils/100 WBC (Bld) 2.4 % Normal [facility] Comment on above: Order Comment: Speci men Type: BLOOD SPECIMEN Ordering Facility: [facility] Address: [address] [place] [address] Performed By: #### 3 4528-0, 47885-3 #### [facility] CLIA [id number] [address] [place] [address] [place] Erythrocyte distribution width (RBC) [Ratio] 15.0 % Normal 11.5-15.0 [facility] Comment on above: Order Comment: Speci men Type: BLOOD SPECIMEN Ordering Facility: [facility] Address: [address] [place] [address] Performed By: #### 3 4528-0, 53161-7 #### [facility] CLIA [id number] [address] [place] [address] [place] Hematocrit (Bld) [Volume fraction] 41.3 % Normal 39.0-51.0 [facility] Comment on above: Order Comment: Speci men Type: BLOOD SPECIMEN Ordering Facility: [facility] Address: [address] [place] [address] Performed By: #### 3 4528-0, 02353-6 #### [facility] CLIA [id number] [address] [place] [address] [place] Hemoglobin (Bld) [Mass/Vol] 13.5 g/dL Normal 13.0-17.0 [facility] Comment on above: Order Comment: Speci men Type: BLOOD SPECIMEN Ordering Facility: [facility] Address: [address] [place] [address] Performed By: #### 3 4528-0, 08106-8 #### [facility] CLIA [id number] [address] [place] [address] [place] Immature granulocytes (Bld) [#/Vol] 0.05 10*3/uL Normal <0.10 [facility] Comment on above: Order Comment: Speci men Type: BLOOD SPECIMEN Ordering Facility: [facility] Address: [address] [place] [address] Performed By: #### 3 4528-0, 90623-6 #### [facility] CLIA [id number] [address] [place] [address] [place] Immature granulocytes/100 WBC (Bld) 0.6 % Normal [facility] Comment on above: Order Comment: Speci men Type: BLOOD SPECIMEN Ordering Facility: [facility] Address: [address] [place] [address] Performed By: #### 3 4528-0, 96630-3 #### [facility] CLIA [id number] [address] [place] [address] [place] Lymphocytes (Bld) [#/Vol] 1.53 10*3/uL Normal 1.00-4.00 [facility] Comment on above: Order Comment: Speci men Type: BLOOD SPECIMEN Ordering Facility: [facility] Address: [address] [place] [address] Performed By: #### 3 4528-0, 92691-1 #### [facility] CLIA [id number] [address] [place] [address] [place] Lymphocytes/100 WBC (Bld) 17.4 % Normal [facility] Comment on above: Order Comment: Speci men Type: BLOOD SPECIMEN Ordering Facility: [facility] Address: [address] [place] [address] Performed By: #### 3 4528-0, 36645-9 #### [facility] CLIA [id number] [address] [place] [address] [place] MCH (RBC) [Entitic mass] 30.1 pg Normal 26.0-34.0 [facility] Comment on above: Order Comment: Speci men Type: BLOOD SPECIMEN Ordering Facility: [facility] Address: [address] [place] [address] Performed By: #### 3 4528-0, 72436-3 #### [facility] CLIA [id number] [address] [place] [address] [place] MCHC (RBC) [Mass/Vol] 32.7 g/dL Normal 30.5-36.0 [facility] Comment on above: Order Comment: Speci men Type: BLOOD SPECIMEN Ordering Facility: [facility] Address: [address] [place] [address] Performed By: #### 3 4528-0, 64960-0 #### [facility] CLIA [id number] [address] [place] [address] [place] MCV (RBC) [Entitic vol] 92.0 fL Normal 80.0-100.0 [facility] Comment on above: Order Comment: Speci men Type: BLOOD SPECIMEN Ordering Facility: [facility] Address: [address] [place] [address] Performed By: #### 3 4528-0, 33793-7 #### [facility] CLIA [id number] [address] [place] [address] [place] Monocytes (Bld) [#/Vol] 0.63 10*3/uL Normal <0.87 [facility] Comment on above: Order Comment: Speci men Type: BLOOD SPECIMEN Ordering Facility: [facility] Address: [address] [place] [address] Performed By: #### 3 4528-0, 39461-0 #### [facility] CLIA [id number] [address] [place] [address] [place] Monocytes/100 WBC (Bld) 7.2 % Normal [facility] Comment on above: Order Comment: Speci men Type: BLOOD SPECIMEN Ordering Facility: [facility] Address: [address] [place] [address] Performed By: #### 3 4528-0, 78621-8 #### [facility] CLIA [id number] [address] [place] [address] [place] Neutrophils (Bld) [#/Vol] 6.33 10*3/uL Normal 1.45-7.50 [facility] Comment on above: Order Comment: Speci men Type: BLOOD SPECIMEN Ordering Facility: [facility] Address: [address] [place] [address] Performed By: #### 3 4528-0, 18634-9 #### [facility] CLIA [id number] [address] [place] [address] [place] Neutrophils/100 WBC (Bld) 71.9 % Normal [facility] Comment on above: Order Comment: Speci men Type: BLOOD SPECIMEN Ordering Facility: [facility] Address: [address] [place] [address] Performed By: #### 3 4528-0, 22850-5 #### [facility] CLIA [id number] [address] [place] [address] [place] Nucleated RBC (Bld) [#/Vol] 10*3/uL Normal <0.01 [facility] Comment on above: Order Comment: Speci men Type: BLOOD SPECIMEN Ordering Facility: [facility] Address: [address] [place] [address] Performed By: #### 3 4528-0, 07074-6 #### [facility] CLIA [id number] [address] [place] [address] [place] Nucleated RBC/100 WBC (Bld) [Ratio] 0.0 /100 WBC Normal [facility] Comment on above: Order Comment: Speci men Type: BLOOD SPECIMEN Ordering Facility: [facility] Address: [address] [place] [address] Performed By: #### 3 4528-0, 50805-0 #### [facility] CLIA [id number] [address] [place] [address] [place] Platelet mean volume (Bld) [Entitic vol] 12.2 fL Normal 9.0-12.7 [facility] Comment on above: Order Comment: Speci men Type: BLOOD SPECIMEN Ordering Facility: [facility] Address: [address] [place] [address] Performed By: #### 3 4528-0, 44409-0 #### [facility] CLIA [id number] [address] [place] [address] [place] Platelets (Bld) [#/Vol] 230 10*3/uL Normal 150-400 [facility] Comment on above: Order Comment: Speci men Type: BLOOD SPECIMEN Ordering Facility: [facility] Address: [address] [place] [address] Performed By: #### 3 4528-0, 29282-9 #### [facility] CLIA [id number] [address] [place] [address] [place] RBC (Bld) [#/Vol] 4.49 10*6/uL Normal 4.20-6.00 [facility] Comment on above: Order Comment: Speci men Type: BLOOD SPECIMEN Ordering Facility: [facility] Address: [address] [place] [address] Performed By: #### 3 4528-0, 79258-6 #### [facility] CLIA [id number] [address] [place] [address] [place] WBC (Bld) [#/Vol] 8.79 10*3/uL Normal 3.70-11.00 [facility] Comment on above: Order Comment: Speci men Type: BLOOD SPECIMEN Ordering Facility: [facility] Address: [address] [place] [address] Performed By: #### 3 4528-0, 36906-9 #### [facility] CLIA [id number] [address] [place] CONFIRM BLOOD TYPEon 024 ABO group Nom (Bld) A [facility] Rh Nom (Bld) Positive [facility] ABO A Normal [facility] Comment on above: Order Comment: Speci men Type: BLOOD SPECIMEN Ordering Facility: [facility] Address: [address] [place] [address] Performed By: #### 3 4528-0, 12378-9 #### [facility] CLIA [id number] [address] [place] [address] [place] [facility] Rh Nom (Bld) Positive Normal [facility] Comment on above: Order Comment: Speci men Type: BLOOD SPECIMEN Ordering Facility: [facility] Address: [address] [place] [address] Performed By: #### 3 4528-0, 32428-9 #### [facility] CLIA [id number] [address] [place] [address] [place] Comprehensive metabolic 2000 panelon 07-12-2023 Albumin [Mass/Vol] 3.9 g/dL 3.9 - 4.9 g/dL [facility] ALP [Catalytic activity/Vol] 90 U/L 38 - 113 U/L [facility] ALT [Catalytic activity/Vol] 12 U/L 10 - 54 U/L [facility] Anion gap [Moles/Vol] 11 mmol/L 9 - 18 mmol/L [facility] AST [Catalytic activity/Vol] 17 U/L 14 - 40 U/L [facility] Bilirubin [Mass/Vol] 0.2 mg/dL 0.2 - 1 .3 mg/dL [facility] Calcium [Mass/Vol] 9.0 mg/dL 8.5 - 10. 2 mg/dL [facility] Chloride [Moles/Vol] 106 mmol/L High 97 - 10 5 mmol/L [facility] CO2 [Moles/Vol] 23 mmol/L 22 - 30 mmol/L [facility] Creatinine [Mass/Vol] 0.90 mg/dL 0.73 - 1.22 mg/dL [facility] GFR/1.73 sq M.predicted among non-blacks MDRD (S/P/Bld) [Vol rate/Area] 85 mL/min/{1.73_m2} - PINF [facility] Comment on above: Estimated Glomerular Filtration [...] [Mass/Vol] 99 mg/dL 74 - 99 mg/dL [facility] Comment on above: The [place] Diab[employer] Association (ADA) provides guidance for [...] Standards of Medical Care in Diabetes 2016, [place] [employer] Association. Diabetes Care. 2016.39(Suppl 1). Interpretation and review of laboratory results Abnormal [facility] Potassium [Moles/Vol] 4.3 mmol/L 3.7 - 5.1 mmol/L [facility] Protein [Mass/Vol] 6.5 g/dL 6.3 - 8.0 g/dL [facility] Sodium [Moles/Vol] 140 mmol/L 136 - 144 mmol/L [facility] Urea nitrogen [Mass/Vol] 24 mg/dL 9 - 24 mg/dL [facility] Albumin [Mass/Vol] 3.9 g/dL Normal 3.9-4.9 [facility] Comment on above: Order Comment: Speci men Type: BLOOD SPECIMEN Ordering Facility: [facility] Address: [address] [place] [address] Performed By: #### 5 0190-8, 23923-4, 2276-4 #### [facility] CLIA [id number] [address] [place] [address] [place] ALP [Catalytic activity/Vol] 90 U/L Normal 38-113 [facility] Comment on above: Order Comment: Speci men Type: BLOOD SPECIMEN Ordering Facility: [facility] Address: [address] [place] [address] Performed By: #### 5 0190-8, 54779-1, 2275-4 #### [facility] CLIA [id number] [address] [place] [address] [place] ALT [Catalytic activity/Vol] 12 U/L Normal 10-54 [facility] Comment on above: Order Comment: Speci men Type: BLOOD SPECIMEN Ordering Facility: [facility] Address: [address] [place] [address] Performed By: #### 5 0190-8, 79035-9, 2275-4 #### [facility] CLIA [id number] [address] [place] [address] [place] Anion gap [Moles/Vol] 11 mmol/L Normal 9-18 [facility] Comment on above: Order Comment: Speci men Type: BLOOD SPECIMEN Ordering Facility: [facility] Address: [address] [place] [address] Performed By: #### 5 0190-8, 15670-2, 2275-4 #### [facility] CLIA [id number] [address] [place] [address] [place] AST [Catalytic activity/Vol] 17 U/L Normal 14-40 [facility] Comment on above: Order Comment: Speci men Type: BLOOD SPECIMEN Ordering Facility: [facility] Address: [address] [place] [address] Performed By: #### 5 0190-8, 53405-2, 2275-4 #### [facility] CLIA [id number] [address] [place] [address] [place] Bilirubin [Mass/Vol] 0.2 mg/dL Normal 0.2-1.3 [facility] Comment on above: Order Comment: Speci men Type: BLOOD SPECIMEN Ordering Facility: [facility] Address: [address] [place] [address] Performed By: #### 5 0190-8, 81857-6, 2275-05 #### [facility] CLIA [id number] [address] [place] [address] [place] [place] Calcium [Mass/Vol] 9.0 mg/dL Normal 8.5-10.2 [facility] Comment on above: Order Comment: Speci men Type: BLOOD SPECIMEN Ordering Facility: [facility] Address: [address] [place] [address] Performed By: #### 5 0190-8, 90270-0, 2275-05 #### [facility] CLIA [id number] [address] [place] [address] [place] Chloride [Moles/Vol] 106 mmol/L High 97-105 [facility] Comment on above: Order Comment: Speci men Type: BLOOD SPECIMEN Ordering Facility: [facility] Address: [address] [place] [address] Performed By: #### 5 0190-8, 91054-4, 2275-05 #### [facility] CLIA [id number] [address] [place] [address] [place] CO2 [Moles/Vol] 23 mmol/L Normal 22-30 [facility] Comment on above: Order Comment: Speci men Type: BLOOD SPECIMEN Ordering Facility: [facility] Address: [address] [place] [address] Performed By: #### 5 0190-8, 42261-5, 2275-05 #### [facility] CLIA [id number] [address] [place], [place] [id number] [place] Creatinine [Mass/Vol] 0.90 mg/dL Normal 0.73-1.22 [facility] Comment on above: Order Comment: Juana duke Type: BLOOD SPECIMEN Ordering Facility: [facility] Address: [address] [place] [address] Performed By: #### 5 0190-8, 30874-5, 2276-4 #### [facility] CLIA [id number] [address] [place] [address] [place] Creatinine and Glomerular filtration rate.predicted panel (S/P/Bld) 85 mL/min/1.73m??? Normal >=60 [facility] Comment on above: Order Comment: Juana duke Type: BLOOD SPECIMEN Ordering Facility: [facility] Address: [address] [place] [address] Result Comment: Kirsty mated Glomerular Filtration Rate [...] actual GFR. Performed By: #### 5 0190-8, 25901-4, 2276-4 #### [facility] CLIA [id number] [address] [place] [address] [place] Glucose [Mass/Vol] 99 mg/dL Normal 74-99 [facility] Comment on above: Order Comment: Juana duke Type: BLOOD SPECIMEN Ordering Facility: [facility] Address: [address] [place] [address] Result Comment: The [place] Diabetes Association (ADA) provides guidance for cutoff [...] Standards of Medical Care in Diabetes 2016, [place] [employer]. Diabetes Care. 2016.39(Suppl 1). Performed By: #### 5 0190-8, 93971-4, 6-4 #### [facility] CLIA [id number] [address] [place] [address] [place] Potassium [Moles/Vol] 4.3 mmol/L Normal 3.7-5.1 [facility] Comment on above: Order Comment: Speci men Type: BLOOD SPECIMEN Ordering Facility: [facility] Address: [address] [place] [address] Performed By: #### 5 0190-8, 61144-9, 2275-4 #### [facility] CLIA [id number] [address] [place] [address] [place] Protein [Mass/Vol] 6.5 g/dL Normal 6.3-8.0 [facility] Comment on above: Order Comment: Speci men Type: BLOOD SPECIMEN Ordering Facility: [facility] Address: [address] [place] [address] Performed By: #### 5 0190-8, 07951-0, 2275-4 #### [facility] CLIA [id number] [address] [place] [address] [place] Sodium [Moles/Vol] 140 mmol/L Normal 136-144 [facility] Comment on above: Order Comment: Speci men Type: BLOOD SPECIMEN Ordering Facility: [facility] Address: [address] [place] [address] Performed By: #### 5 0190-8, 94669-2, 2275-4 #### [facility] CLIA [id number] [address] [place] [address] [place] Urea nitrogen [Mass/Vol] 24 mg/dL Normal 9-24 [facility] Comment on above: Order Comment: Speci men Type: BLOOD SPECIMEN Ordering Facility: [facility] Address: [address] [place] [address] Performed By: #### 5 0190-8, 25758-4, 2276-4 #### [facility] CLIA [id number] [address] [facility] [place] [address] [place] ECG COMPLETEon 07-12-2023 Atrial Rate 69 BPM [facility] Calculated P [place] 68 degrees [facility] Calculated R [place] 29 degrees [facility] Calculated T [place] 42 degrees [facility] P-R Interval 172 ms [facility] QRS Duration 82 ms [facility] QT Interval 420 ms [facility] QTC Calculation (Bazett) 450 ms [facility] Ventricular Rate 69 BPM [facility] NORMAL SINUS RHYTHM NORMAL ECG Confirmed by ENUICE COYLE M.D. ([id number]) on 07/12/2023 9:12:33 PM [facility] NAME : RENETTASUNNI PID : [id number] : 1940 Gender : Male Race : ORD : [id number] Procedure Date : Jul 12 2023 10:37:29 Edit Date : Jul 12 2023 21:12:34 Diagnosis: NORMAL SINUS RHYTHM NORMAL ECG Confirmed by EUNICE COYLE M.D. ([id number]) on 07/12/2023 9:12:33 PM Test Reason : Location : 145 : [place] Overread By : EUNICE COYLE M.D. Edited By : EUNICE COYLE M.D. Referred By : CAROLYN MARTINEZ Acquired by : , HEART AND VASCULAR [facility] ECG COMPLETE Ventricular Rate : 69 BPM Atrial Rate : 69 BPM P-R Interval : 172 ms QRS Duration : 82 ms Q-T Interval : 420 ms QTC Calculation(Bazett) : 450 ms Calculated P [place] : 68 degrees Calculated R [place] : 29 degrees Calculated T [place] : 42 degrees NORMAL SINUS RHYTHM NORMAL ECG Confirmed by EUNICE COYLE M.D. ([id number]) on 07/12/2023 9:12:33 PM NAME : SUNNI BLACKBURN PID : [id number] : 1940 Gender : Male Race : ORD : [id number] Procedure Date : Jul 12 2023 10:37:29 Edit Date : Jul 12 2023 21:12:34 Diagnosis: NORMAL SINUS RHYTHM NORMAL ECG Confirmed by EUNICE COYLE M.D. ([id number]) on 07/12/2023 9:12:33 PM Test Reason : Location : 145 : [place] Overread By : EUNICE COYLE M.D. Edited By : EUNICE COYLE M.D. Referred By : CAROLYN MARTINEZ Acquired by : am, Normal [facility] FERRITINon 07-12-2023 Ferritin [Mass/Vol] 151.0 ng/mL 30.3 - 5 65.7 ng/mL [facility] Ferritin SerPl-mCncon 2023 Ferritin [Mass/Vol] 151.0 ng/mL Normal 30.3-565.7 [facility] Comment on above: Order Comment: Speci men Type: BLOOD SPECIMEN Ordering Facility: [facility] Address: [address] [place] [address] Performed By: #### 5 0190-8, 66540-3, 2276-4 #### [facility] CLIA [id number] [address] [place] [address] [place] Ferritin [Mass/Vol]on 2023 Interpretation and review of laboratory results Normal [facility] [place] [facility] HISTORY PHYSICALon HISTORY PHYSICAL HNO ID: [id number] Author: CLOVIS GUNDERSON APRN.GRAVEL INSPECTOR Service: ? Author Type: Nurse Practitioner Type: H&P Filed: 07/26/2023 07:55 Note Text: HISTORY AND PHYSICAL EXAMINATION SERVICE DATE: 07/12/2023 SERVICE TIME: 10:10 AM PRIMARY CARE PHYSICIAN: No primary care provider on file. REASON FOR VISIT: Sunni Blackburn is a 83 year old male who [...] (HCC) Assessment: stable following with PCP Continue shirintrru, gave him a spacer to trial To [...] (HCC) Assessment: stable following with PCP Continue shirintri, gave him a spacer to trial To [...] over 50 (more content not included)... Normal [facility] Iron and Iron binding capaci ty panelon 07-12-2023 Interpretation and review of laboratory results Normal [facility] Iron [Mass/Vol] 88 ug/dL 41 - 186 ug/dL [facility] Iron binding capacity [Mass/Vol] 237 ug/dL 232 - 386 ug/dL [facility] Iron/TIBC [Molar ratio] 37.1 % 15.0 - 57.0 % [facility] Iron [Mass/Vol] 88 ug/dL Normal 41-186 [facility] Comment on above: Order Comment: Speci men Type: BLOOD SPECIMEN Ordering Facility: [facility] Address: [address] [place] [address] Performed By: #### 5 0190-8, 93915-8, 2276-4 #### [facility] CLIA [id number] [address] [place] [address] [place] Iron binding capacity [Mass/Vol] 237 ug/dL Normal 232-386 [facility] Comment on above: Order Comment: Speci men Type: BLOOD SPECIMEN Ordering Facility: [facility] Address: [address] [place] [address] Performed By: #### 5 0190-8, 46511-7, 2276-4 #### [facility] CLIA [id number] [address] [place] [address] [place] Iron/TIBC [Molar ratio] 37.1 % Normal 15.0-57.0 [facility] Comment on above: Order Comment: Speci men Type: BLOOD SPECIMEN Ordering Facility: [facility] Address: [address] [place] [address] Performed By: #### 5 0190-8, 09429-7, 2276-4 #### [facility] CLIA [id number] [address] [place] [address] [place] No Panel Informationon 07-11 [facility] No Panel InformationOrdered By: Cata Miranda on 07-12-2023 Interpretation and review of laboratory results Normal [facility] [place] [facility] PT panel Coag (PPP)on 2023 INR Coag (PPP) [Relative time] 1.0 {INR} 0.9 - 1.3 [facility] Comment on above: Vitamin K Antagonist (VKA) Therapeutic Range: INR 2 to 3 (Target INR of 2.5) Note: For patients treated with VKA drugs, such as warfarin, the [place] [employer] 2012 Guideline recommends [...] to 3.5 (target INR of 3). Andria JAMES et al. Chest 2012, 141:7S-47S Alicia ENAMORADO et dav. [facility] 2017, 70: 252-289 PT Coag (PPP) [Time] 10.[address] [facility] INR Coag (PPP) [Relative time] 1.0 {INR} Normal 0.9-1.3 [facility] Comment on above: Order Comment: Speci men Type: BLOOD SPECIMEN Ordering Facility: [facility] Address: [address] [place] [address] Result Comment: Ronit min K Antagonist (VKA) Therapeutic Range: INR 2 to 3 (Target INR of 2.5) Note: For patients treated with VKA drugs, such as warfarin, the [place] [employer] 2012 Guideline recommends [...] to 3.5 (target INR of 3). Andria JAMES et al. Chest 2012, 141:7S-47S Alicia ENAMORADO et al. [facility] 2017, 70: 252-289 Performed By: #### 3 4528-0, 47300-9 #### [facility] CLIA [id number] [address] [place], [place] [address] [id number] [place] [id number] [place] [address] [place] PT Coag (PPP) [Time] 10.5 s Normal 9.7-13.0 [facility] Comment on above: Order Comment: Juana men Type: BLOOD SPECIMEN Ordering Facility: [facility] Address: [address] [place] [address] Performed By: #### 3 4528-0, 66651-5 #### [facility] CLIA [id number] [address] [place] [address] [place] TYPE AND SCREEN,30 DAYon ABO A Normal [facility] Comment on above: Order Comment: Speci men Type: BLOOD SPECIMEN Ordering Facility: [facility] Address: [address] [place] [address] Performed By: #### 3 4528-0, 35222-3 #### [facility] CLIA [id number] [address] [place] [address] [place] HISTORICAL AB SCR STATUS Negative Normal [facility] Comment on above: Order Comment: Speci men Type: BLOOD SPECIMEN Ordering Facility: [facility] Address: [address] [place] [address] Performed By: #### 3 4528-0, 56805-5 #### [facility] CLIA [id number] [address] [place] [address] [place] Rh Nom (Bld) Positive Normal [facility] Comment on above: Order Comment: Speci men Type: BLOOD SPECIMEN Ordering Facility: [facility] Address: [address] [place] [address] Performed By: #### 3 4528-0, 79547-9 #### [facility] CLIA [id number] [address] [place] [address] [place] aPTT Coag (PPP) [Time]Ordere d By: Cata [...] laboratory APTT reagent in use throughout the [facility]. [facility] aPTT PPPon 07-12-2023 aPTT Coag (PPP) [Time] 31.9 s Normal 23.0-32.4 [facility] Comment on above: Order Comment: Speci men Type: BLOOD SPECIMEN Ordering Facility: [facility] Address: [address] [place] [address] Result Comment: Froz en Plasma Aliquot Performed By: #### 3 4528-0, 41556-5 #### [facility] CLIA [id number] [address] [place] [address] STATES OF [facility] CNPNon 06-20-2023 CNPN Telephone (NIQ) SUNNI BLACKBURN ([id number]) 1940 M Date Time Provider Department 06/20/23 REBECA MARTINEZ During your visit today, we recorded the following information about you: Liliam Clayton 06/20/2023 9:50 AM Signed Received Ultrasound of the Carotid report by fax from [facility]. Scanned fax to chart for review. Allergies As of Date: 06/20/2023 (Not on File) Date Reviewed: 06/19/2023 Reviewed by: Kala Horta MA - Fully Assessed Reason for Visit: Received Outside Medical Records [8200] Prescriptions as of 07/24/2023 - vit A,C,H-Jpjf-Qfyjlf (PRESERVISION AREDS) 2,148 mcg-113 mg-45 mg-17.4mg tab [...] (HCC) [G95.89] 06/19/2023 Encounter Status:Closed by LILIAM CLAYTON on 07/24/23 [facility] CNOVon 06-19-2023 CNOV Office Visit (NSFRVW) SUNNI BLACKBURN ([id number]) 1940 M Date Time Provider Department 06/19/23 9:00 AM REBECA MARTINEZ NSFRVW During your visit today, we recorded [...] in bilateral upper extremity Walking difficulty 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 Mr. Blackburn is a pleasant 82-year-old gentleman is in surgery clinic with a history of shocklike sensation in bilateral upper extremity for the past 1 year. Shocklike sensation happen sporadically. Occasionally associated with neck movements. Sensation radiates up to all fingers. Mild posterior neck soreness. Denies sharp pain in upper extremity. He also noticed numbness over bilateral hand. 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 Noticed minimal imbalance [...] lb) SpO2 99% (more content not included)... Normal [facility] XR CERVICAL 4V AP/LAT/FLX/EX Ton 06-19-2023 [...] 1. No acute fracture 2. Degenerative changes. Division Chair: GREER Transcribe Date/Time: Jun 21 2023 3:35P Dictated by : DAKOTA CORONA MD This examination was interpreted and the report reviewed and electronically signed by: DAKOTA CORONA MD on Jun 21 2023 3:38PM EST [id number] CN Normal [facility] ALL CBC WITH AUTO DIFFon BASOPHILS ABSOLUTE AUTO 0.1 [facility] Basophils/100 WBC (Bld) 0.5 % 0.2 - 2.0 % [facility] Eosinophils/100 WBC (Bld) 1.7 % 0.9 - 7.0 % [facility] Erythrocyte distribution width (RBC) [Ratio] 14.9 % 11.0 - 15.0 % [facility] Hematocrit (Bld) [Volume fraction] 37.2 % Low 42.0 - 54.0 % [facility] Hemoglobin (Bld) [Mass/Vol] 12.0 g/dL Low 14.0 - 18.0 g/dL [facility] IMMATURE GRANULOCYTES ABS AUTO 0.25 High [facility] Immature granulocytes/100 WBC (Bld) 2.1 % High 0.0 - 0.5 % [facility] Interpretation and review of laboratory results Abnormal [facility] LYMPHOCYTES ABSOLUTE AUTO 2.5 [facility] Lymphocytes/100 WBC (Bld) 20.7 % 20.5 - 60.0 % [facility] MCH (RBC) [Entitic mass] 29.9 pg 25.9 - 34.0 pg [facility] MCHC (RBC) [Mass/Vol] 32.3 g/dL 29.9 - 35.2 g/dL [facility] MCV (RBC) [Entitic vol] 92.5 fL 80.0 - 94.0 fL [facility] MONOCYTES ABSOLUTE AUTO 1.0 High [facility] Monocytes/100 WBC (Bld) 8.6 % 1.7 - 12.0 % [facility] NEUTROPHILS ABSOLUTE AUTO 7.8 High [facility] Neutrophils/100 WBC (Bld) 66.4 % 43.0 - 75.0 % [facility] Platelet mean volume (Bld) [Entitic vol] 11.1 fL 9.5 - 13.5 fL [facility] TB EO # 0.2 [facility] TB PLT [address] [facility] RBC 4.[address] [facility] WBC 11.8 High [facility] US THYROIDon 07-26-2022 US THYROID EXAMINATION: US [...] by: ARTEM MIRANDA Date: 2022-07-26 09:12 Normal [facility] PROF CHEM 8 (BAS METB)on Anion gap [Moles/Vol] 11.5 mmol/L Normal [facility] Comment on above: Performed By: #### B MP #### [facility] [address] [address] [address] Bethany Killian Calcium [Mass/Vol] 8.5 mg/dL Normal 8.5-10.1 [facility] Comment on above: Performed By: #### B MP #### [facility] [address] [place], [place] [address] Dr. Bethany Killian Chloride [Moles/Vol] 109 mmol/L Critically high 98-107 [facility] Comment on above: Performed By: #### B MP #### [facility] [address] [address] [address] Bethany Killian CO2 [Moles/Vol] 26.2 mmol/L Normal 21.0-32.0 [facility] Comment on above: Performed By: #### B MP #### [facility] [address] [address] [address] Bethany Killian Creatinine [Mass/Vol] 1.06 mg/dL Normal 0.70-1.30 [facility] Comment on above: Performed By: #### B MP #### [facility] [address] [place] [address] Dr. Bethany Killian EGFR-AF AUSTRALIAN >60 Normal >=60 [facility] Comment on above: Performed By: #### B MP #### [facility] [address] [address] [address] Bethany Killian EGFR-NON AF AUSTRALIAN >60 Normal >=60 [facility] Comment on above: Performed By: #### B MP #### [facility] [address] [place] [address] Dr. Bethany Killian Glucose [Mass/Vol] 80 mg/dL Normal 74-106 [facility] Comment on above: Performed By: #### B MP #### [facility] [address] [address] [address] Bethany Killian Potassium [Moles/Vol] 4.7 mmol/L Normal 3.5-5.1 [facility] Comment on above: Performed By: #### B MP #### [facility] [address] [address] [address] Bethany Killian Sodium [Moles/Vol] 142 mmol/L Normal 136-145 [facility] Comment on above: Performed By: #### B MP #### [facility] [address] [address] [address] Bethany Killian Urea nitrogen [Mass/Vol] 26.0 mg/dL Critically high 7.0-18.0 [facility] Comment on above: Performed By: #### B MP #### [facility] [address] [place], [place] [address] Dr. Bethany Killian Urea nitrogen/Creatinine [Mass ratio] 24.5 mg/mg Normal [facility] Comment on above: Performed By: #### B MP #### [facility] [address] [place], [place] [address] CSPINE WO CONon [...] Lam GORDILLO Date: 2022-06-11 19:49 Normal [facility] CT HEAD WO CONon 06-11-2022 CT HEAD [...] CHRISTEN ARREDONDO Date: 2022-06-11 19:24 Normal [facility] XR CHEST 2 Von 05-25-2022 XR CHEST [...] SAVAGE OATES Date: 2022-05-25 07:20 Normal [facility] PROF CHEM 8 (BAS METB)on Anion gap [Moles/Vol] 12.2 mmol/L Normal [facility] Comment on above: Performed By: #### B MP ####[facility] [address] [address]Dr[address] Bethany Killian Calcium [Mass/Vol] 8.7 mg/dL Normal 8.5-10.1 [facility] Comment on above: Performed By: #### B MP ####[facility] [address] [address]Dr[address] Bethany Killian Chloride [Moles/Vol] 106 mmol/L Normal 98-107 [facility] Comment on above: Performed By: #### B MP ####[facility] [address] [place], [place] [address]Dr. Bethany Killian CO2 [Moles/Vol] 26.0 mmol/L Normal 21.0-32.0 [facility] Comment on above: Performed By: #### B MP ####[facility] [address] [place], [place] [address]Dr. Bethany Killian Creatinine [Mass/Vol] 1.04 mg/dL Normal 0.70-1.30 [facility] Comment on above: Performed By: #### B MP ####[facility] [address] [place], [place] [address]Dr. Bethany Killian EGFR-AF AUSTRALIAN >60 Normal >=60 [facility] Comment on above: Performed By: #### B MP ####[facility] [address] [place], [place] [address]Dr. Bethany Killian EGFR-NON AF AUSTRALIAN >60 Normal >=60 [facility] Comment on above: Performed By: #### B MP ####[facility] [address] [place], [place] [address]Dr. Bethany Killian Glucose [Mass/Vol] 85 mg/dL Normal 74-106 [facility] Comment on above: Performed By: #### B MP ####[facility] [address] [place], [place] [address]Dr. Felicitawalker Killian Potassium [Moles/Vol] 4.2 mmol/L Normal 3.5-5.1 [facility] Comment on above: Performed By: #### B MP ####[facility] [address] [address]DrBhavin Killian Sodium [Moles/Vol] 140 mmol/L Normal 136-145 [facility] Comment on above: Performed By: #### B MP ####[facility] [address] [address]Dr[address] Bethany Killian Urea nitrogen [Mass/Vol] 29.0 mg/dL Critically high 7.0-18.0 [facility] Comment on above: Performed By: #### B MP ####[facility] [address] [address]Dr. Bethany Killian Urea nitrogen/Creatinine [Mass ratio] 27.9 mg/mg Normal [facility] Comment on above: Performed By: #### B MP ####[facility] [address] [address]DrBhavin Killian CBC AUTO DIFFon 02-24-2022 BASO # 0.0 103/ul Normal 0.0-0.1 [facility] Comment on above: Performed By: #### C BC #### [facility] [address] [address] [address] Bethany Killian Basophils/100 WBC (Bld) 0.3 % Normal 0.2-2.0 [facility] Comment on above: Performed By: #### C BC #### [facility] [address] [address] [address] Bethany Killian EO # 0.2 103/ul Normal 0.0-0.7 [facility] Comment on above: Performed By: #### C BC #### [facility] [address] [address] [address] Bethany Killian Eosinophils/100 WBC (Bld) 1.8 % Normal 0.9-7.0 [facility] Comment on above: Performed By: #### C BC #### [facility] [address] [address] [address] Bethany Killian Erythrocyte distribution width (RBC) [Ratio] 14.8 % Normal 11.0-15.0 [facility] Comment on above: Performed By: #### C BC #### [facility] [address] [address] [address] Bethany Killian Hematocrit (Bld) [Volume fraction] 38.3 % Critically low 42.0-54.0 [facility] Comment on above: Performed By: #### C BC #### [facility] [address] [address] [address] Bethany Killian Hemoglobin (Bld) [Mass/Vol] 12.6 g/dL Critically low 14.0-18.0 [facility] Comment on above: Performed By: #### C BC #### [facility] [address] [address] [address] Bethany Killian IG # 0.05 10e3/ul Critically high 0.00-0.03 [facility] Comment on above: Performed By: #### C BC #### [facility] [address] [address] [address] Bethany Killian IG % 0.6 % Critically high 0.0-0.5 [facility] Comment on above: Performed By: #### C BC #### [facility] [address] [address] [address] Bethany Killian LYMPH # 1.8 103/ul Normal 1.2-3.8 [facility] Comment on above: Performed By: #### C BC #### [facility] [address] [address] [address] Bethany Killian Lymphocytes/100 WBC (Bld) 20.2 % Critically low 20.5-60.0 [facility] Comment on above: Performed By: #### C BC #### [facility] [address] [address] [address] Bethany Killian MANUAL DIFF REQ NO Normal [facility] Comment on above: Performed By: #### C BC #### [facility] [address] [place] [address] Dr. Bethany Killian MCH (RBC) [Entitic mass] 29.9 pg Normal 25.9-34.0 [facility] Comment on above: Performed By: #### C BC #### [facility] [address] [address] [address] Bethany Killian MCHC (RBC) [Mass/Vol] 32.9 g/dL Normal 29.9-35.2 [facility] Comment on above: Performed By: #### C BC #### [facility] [address] [address] [address] Bethany Killian MCV (RBC) [Entitic vol] 90.8 fL Normal 80.0-94.0 [facility] Comment on above: Performed By: #### C BC #### [facility] [address] [address] [address] Bethany Killian MONO # 0.9 103/ul Critically high 0.3-0.8 [facility] Comment on above: Performed By: #### C BC #### [facility] [address] [place] [address] Dr. Bethany Killian Monocytes/100 WBC (Bld) 9.9 % Normal 1.7-12.0 [facility] Comment on above: Performed By: #### C BC #### [facility] [address] [address] [address] Bethany Killian NEUT # 5.9 103/ul Normal 1.4-6.5 [facility] Comment on above: Performed By: #### C BC #### [facility] [address] [place] [address] Dr. Bethany Killian Neutrophils/100 WBC (Bld) 67.2 % Normal 43.0-75.0 [facility] Comment on above: Performed By: #### C BC #### [facility] [address] [address] [address] Bethany Killian Platelet mean volume (Bld) [Entitic vol] 11.8 fL Normal 9.5-13.5 [facility] Comment on above: Performed By: #### C BC #### [facility] [address] [address] [address] Bethany Killian PLT 242 103/ul Normal 150-450 [facility] Comment on above: Performed By: #### C BC #### [facility] [address] [address] [address] Bethany Killian RBC 4.22 106/ul Critically low 4.70-6.10 [facility] Comment on above: Performed By: #### C BC #### [facility] [address] [address] [address] Bethany Killian WBC 8.8 103/ul Normal 4.0-11.0 [facility] Comment on above: Performed By: #### C BC #### [facility] [address] [address] [address] Bethany Killian FERRITINon 02-24-2022 Ferritin [Mass/Vol] 156.0 ng/mL Normal 26.0-388.0 [facility] Comment on above: Performed By: #### I BRAYAN, FERR #### [facility] [address] [place] [address] Dr. Bethany Killian IRONon 02-24-2022 Iron [Mass/Vol] 99.0 ug/dL Normal 65.0-175.0 [facility] Comment on above: Performed By: #### I BRAYAN, FERR #### [facility] [address] [address] [address] Bethany Killian PROF CHEM 8 (BAS METB)on Anion gap [Moles/Vol] 12.9 mmol/L Normal [facility] Comment on above: Result Comment: Prev iously reported as: 0.3 On 02/24/2022 13:42 By DM9 Performed By: #### B MP ####[facility] [address] [address]Dr. Bethany Killian Calcium [Mass/Vol] 8.9 mg/dL Normal 8.5-10.1 [facility] Comment on above: Performed By: #### B MP ####[facility] [address] [address]Dr. Bethany Killian Chloride [Moles/Vol] 102 mmol/L Normal 98-107 [facility] Comment on above: Result Comment: Prev iously reported as: 108 On 02/24/2022 13:42 By DM9 Performed By: #### B MP ####[facility] [address] [address]Dr. Bethany Killian CO2 [Moles/Vol] 27.4 mmol/L Normal 21.0-32.0 [facility] Comment on above: Result Comment: Prev iously reported as: 27.8 On 02/24/2022 13:42 By DM9 Performed By: #### B MP ####[facility] [address] [place], [place] [address]Dr. Bethany Killian Creatinine [Mass/Vol] 1.21 mg/dL Normal 0.70-1.30 [facility] Comment on above: Performed By: #### B MP ####[facility] [address] [place], [place] [address]Dr. Bethany Killian EGFR-AF AUSTRALIAN >60 Normal >=60 [facility] Comment on above: Performed By: #### B MP ####[facility] [address] [place], [place] [address]Dr. Bethany Killian EGFR-NON AF AUSTRALIAN 58 mL/min/1.73m2 Critically low >=60 [facility] Comment on above: Performed By: #### B MP ####[facility] [address] [place], [place] [address]Dr. Bethany Killian Glucose [Mass/Vol] 98 mg/dL Normal 74-106 [facility] Comment on above: Performed By: #### B MP ####[facility] [address] [place], [place] [address]Dr. Bethany Killian Potassium [Moles/Vol] 4.3 mmol/L Normal 3.5-5.1 [facility] Comment on above: Result Comment: Prev iously reported as: 4.1 On 02/24/2022 13:42 By DM9 Performed By: #### B MP ####[facility] [address] [place], [place] [address]Dr. Bethany Killian Sodium [Moles/Vol] 138 mmol/L Normal 136-145 [facility] Comment on above: Result Comment: Prev iously reported as: 132 On 02/24/2022 13:42 By DM9 Performed By: #### B MP ####[facility] [address] [id number]. Bethany Killian Urea nitrogen [Mass/Vol] 37.0 mg/dL Critically high 7.0-18.0 [facility] Comment on above: Performed By: #### B MP ####[facility] [address] [id number]. Bethany Killian Urea nitrogen/Creatinine [Mass ratio] 30.6 mg/mg Normal [facility] Comment on above: Performed By: #### B MP ####[facility] [address] [address]Dr. Bethany Killian CBC AUTO DIFFon 01-02-2022 BASO # 0.0 103/ul Normal 0.0-0.1 [facility] Comment on above: Performed By: #### C BC #### [facility] [address] [place] [address] Dr. Bethany Killian Basophils/100 WBC (Bld) 0.5 % Normal 0.2-2.0 [facility] Comment on above: Performed By: #### C BC #### [facility] [address] [place] [address] Dr. Bethany Killian EO # 0.1 103/ul Normal 0.0-0.7 [facility] Comment on above: Performed By: #### C BC #### [facility] [address] [place] [address] Dr. Bethany Killian Eosinophils/100 WBC (Bld) 1.7 % Normal 0.9-7.0 [facility] Comment on above: Performed By: #### C BC #### [facility] [address] [place] [address] Dr. Bethany Killian Erythrocyte distribution width (RBC) [Ratio] 14.6 % Normal 11.0-15.0 [facility] Comment on above: Performed By: #### C BC #### [facility] [address] [place] [address] Dr. Bethany Killian Hematocrit (Bld) [Volume fraction] 37.8 % Critically low 42.0-54.0 [facility] Comment on above: Performed By: #### C BC #### [facility] [address] [place] [address] Dr. Bethany Killian Hemoglobin (Bld) [Mass/Vol] 12.0 g/dL Critically low 14.0-18.0 [facility] Comment on above: Performed By: #### C BC #### [facility] [address] [place] [address] Dr. Bethany Killian IG # 0.04 10e3/ul Critically high 0.00-0.03 [facility] Comment on above: Performed By: #### C BC #### [facility] [address] [place] [address] Dr. Bethany Killian IG % 0.5 % Normal 0.0-0.5 [facility] Comment on above: Performed By: #### C BC #### [facility] [address] [place] [address] Dr. Bethany Killian LYMPH # 1.2 103/ul Normal 1.2-3.8 [facility] Comment on above: Performed By: #### C BC #### [facility] [address] [place] [address] Dr. Bethany Killian Lymphocytes/100 WBC (Bld) 15.1 % Critically low 20.5-60.0 [facility] Comment on above: Performed By: #### C BC #### [facility] [address] [place] [address] Dr. Bethany Killian MANUAL DIFF REQ NO Normal [facility] Comment on above: Performed By: #### C BC #### [facility] [address] [place] [address] Dr. Bethany Killian MCH (RBC) [Entitic mass] 29.8 pg Normal 25.9-34.0 [facility] Comment on above: Performed By: #### C BC #### [facility] [address] [place] [address] Dr. Bethany Killian MCHC (RBC) [Mass/Vol] 31.7 g/dL Normal 29.9-35.2 [facility] Comment on above: Performed By: #### C BC #### [facility] [address] [address] [address] Bethany Killian MCV (RBC) [Entitic vol] 93.8 fL Normal 80.0-94.0 [facility] Comment on above: Performed By: #### C BC #### [facility] [address] [address] [address] Bethany Killian MONO # 0.8 103/ul Normal 0.3-0.8 [facility] Comment on above: Performed By: #### C BC #### [facility] [address] [address] [address] Bethany Killian Monocytes/100 WBC (Bld) 10.3 % Normal 1.7-12.0 [facility] Comment on above: Performed By: #### C BC #### [facility] [address] [address] [address] Bethany Killian NEUT # 5.8 103/ul Normal 1.4-6.5 [facility] Comment on above: Performed By: #### C BC #### [facility] [address] [address] [address] Bethany Killian Neutrophils/100 WBC (Bld) 71.9 % Normal 43.0-75.0 [facility] Comment on above: Performed By: #### C BC #### [facility] [address] [address] [address] Bethany Killian Platelet mean volume (Bld) [Entitic vol] 12.2 fL Normal 9.5-13.5 [facility] Comment on above: Performed By: #### C BC #### [facility] [address] [address] [address] Bethany Killian PLT 241 103/ul Normal 150-450 [facility] Comment on above: Performed By: #### C BC #### [facility] [address] [address] [address] Bethany Killian RBC 4.03 106/ul Critically low 4.70-6.10 [facility] Comment on above: Performed By: #### C BC #### [facility] [address] [address] [address] Bethany Killian WBC 8.1 103/ul Normal 4.0-11.0 [facility] Comment on above: Performed By: #### C BC #### [facility] [address] [address] [address] Bethany Killian FREE T4on 01-02-2022 Free T4 [Mass/Vol] 1.00 ng/dL Normal 0.76-1.46 [facility] Comment on above: Performed By: #### F T4, PSASC ####[facility] [address] [address]DrBhavin Killian PROF 14(COMP METB)on 022 Albumin [Mass/Vol] 3.1 g/dL Critically low 3.4-5.0 [facility] Comment on above: Performed By: #### C MP, TSH ####[facility] [address] [address]Dr. Bethany Killian Albumin/Globulin [Mass ratio] 0.9 {ratio} Normal [facility] Comment on above: Performed By: #### C MP, TSH ####[facility] [address] [address]Dr. Bethany Killian ALP [Catalytic activity/Vol] 78 U/L Normal 46-116 [facility] Comment on above: Performed By: #### C MP, TSH ####[facility] [address] [address]Dr. Bethany Killian ALT [Catalytic activity/Vol] 19 U/L Normal 16-63 [facility] Comment on above: Performed By: #### C MP, TSH ####[facility] [address] [address]Dr. Bethany Killian Anion gap [Moles/Vol] 9.0 mmol/L Normal [facility] Comment on above: Performed By: #### C MP, TSH ####[facility] [address] [address]Dr. Bethany Killian AST [Catalytic activity/Vol] 12 U/L Critically low 15-37 [facility] Comment on above: Performed By: #### C MP, TSH ####[facility] [address] [place], [place] [address]Dr. Bethany Killian Bilirubin [Mass/Vol] 0.4 mg/dL Normal 0.2-1.0 [facility] Comment on above: Performed By: #### C MP, TSH ####[facility] [address] [place], [place] [address]Dr. Bethany Killian Calcium [Mass/Vol] 8.6 mg/dL Normal 8.5-10.1 [facility] Comment on above: Performed By: #### C MP, TSH ####[facility] [address] [place], [place] [address]Dr. Bethany Killian Chloride [Moles/Vol] 105 mmol/L Normal 98-107 [facility] Comment on above: Performed By: #### C MP, TSH ####[facility] [address] [place], [place] [address]Dr. Bethany Killian CO2 [Moles/Vol] 28.6 mmol/L Normal 21.0-32.0 [facility] Comment on above: Performed By: #### C MP, TSH ####[facility] [address] [place], [place] [address]Dr. Bethany Killian Creatinine [Mass/Vol] 0.99 mg/dL Normal 0.70-1.30 [facility] Comment on above: Performed By: #### C MP, TSH ####[facility] [address] [place], [place] [address]Dr. Bethany Constantin EGFR-AF AUSTRALIAN >60 Normal >=60 [facility] Comment on above: Performed By: #### C MP, TSH ####[facility] [address] [place], [place] [address]Dr. Felicitawalker Constantin EGFR-NON AF AUSTRALIAN >60 Normal >=60 [facility] Comment on above: Performed By: #### C MP, TSH ####[facility] [address] [place], [place] [address]Dr. Bethany Killian Globulin (S) [Mass/Vol] 3.5 g/dL Normal [facility] Comment on above: Performed By: #### C MP, TSH ####[facility] [address] [address]Dr. Bethany Killian Glucose [Mass/Vol] 85 mg/dL Normal 74-106 [facility] Comment on above: Performed By: #### C MP, TSH ####[facility] [address] [address]Dr. Bethany Killian Potassium [Moles/Vol] 4.6 mmol/L Normal 3.5-5.1 [facility] Comment on above: Performed By: #### C SALEEM, TSH ####[facility] [address] [place], [place] [address]Dr. Bethany Killian Protein [Mass/Vol] 6.6 g/dL Normal 6.4-8.2 [facility] Comment on above: Performed By: #### C SALEEM, TSH ####[facility] [address] [place], [place] [address]Dr. Bethany Killian Sodium [Moles/Vol] 138 mmol/L Normal 136-145 [facility] Comment on above: Performed By: #### C MP, TSH ####[facility] [address] [place], [place] [address]Dr. Bethany Killian Urea nitrogen [Mass/Vol] 30.0 mg/dL Critically high 7.0-18.0 [facility] Comment on above: Performed By: #### C MP, TSH ####[facility] [address] [place], [place] [address]Dr. Bethany Killian Urea nitrogen/Creatinine [Mass ratio] 30.3 mg/mg Normal [facility] Comment on above: Performed By: #### C MP, TSH ####[facility] [address] [place], [place] [address]Dr. Bethany Killian TSHon 01-02-2022 TSH 1.411 uIU/mL Normal 0.358-3.740 [facility] Comment on above: Performed By: #### C MP, TSH ####[facility] [address] [address]Dr. Bethany Killian UA RANDOM W/MICROSCOPICon BACTERIA NONE SEEN Normal NONE SEEN [facility] Comment on above: Performed By: #### U AMIC #### [facility] [address] [address] [address] Bethany Killian Bilirubin Ql (U) Negative Normal NEGATIVE [facility] Comment on above: Performed By: #### U AMIC #### [facility] [address] [address] [address] Bethany Killian CAST NONE SEEN Normal NONE SEEN [facility] Comment on above: Performed By: #### U AMIC #### [facility] [address] [address] [address] Bethany Killian Clarity (U) CLEAR Normal CLEAR [facility] Comment on above: Performed By: #### U AMIC #### [facility] [address] [address] [address] Bethany Killian Color (U) LT. YELLOW Normal YELLOW [facility] Comment on above: Performed By: #### U AMIC #### [facility] [address] [address] [address] Bethany Killian Crystals LM Nom (Urine sed) NONE SEEN Normal NONE SEEN [facility] Comment on above: Performed By: #### U AMIC #### [facility] [address] [address] [address] Bethany Killian Epithelial cells LM Ql (Urine sed) NONE SEEN Normal NONE SEEN /RARE [facility] Comment on above: Performed By: #### U AMIC #### [facility] [address] [address] [address] Bethany Killian Glucose Ql (U) Negative Normal NEGATIVE [facility] Comment on above: Performed By: #### U AMIC #### [facility] [address] [address] [address] Bethany Killian Hemoglobin Ql (U) Negative Normal NEGATIVE [facility] Comment on above: Performed By: #### U AMIC #### [facility] [address] [address] [address] Bethany Killian Ketones Ql (U) Negative Normal NEGATIVE [facility] Comment on above: Performed By: #### U AMIC #### [facility] [address] [place] [address] Dr. Bethany Killian LEUKOCYTES Negative Normal NEGATIVE [facility] Comment on above: Performed By: #### U AMIC #### [facility] [address] [place] [address] Dr. Bethany Killian MUCOUS NONE SEEN Normal NONE SEEN [facility] Comment on above: Performed By: #### U AMIC #### [facility] [address] [place] [address] Dr. Bethany Killian Nitrite Ql (U) Negative Normal NEGATIVE [facility] Comment on above: Performed By: #### U AMIC #### [facility] [address] [place] [address] Dr. Bethany Killian pH (U) 6.5 [pH] Normal 5-9 [facility] Comment on above: Performed By: #### U AMIC #### [facility] [address] [place] [address] Dr. Bethany Killian RBC 0-2 Normal 0-2 [facility] Comment on above: Performed By: #### U AMIC #### [facility] [address] [place] [address] Dr. Bethany Killian SPEC GRAVITY 1.020 Normal 1.005-<=1.025 [facility] Comment on above: Performed By: #### U AMIC #### [facility] [address] [place] [address] Dr. Bethany Killian UA PROTEIN Negative Normal NEGATIVE/ TRACE [facility] Comment on above: Performed By: #### U AMIC #### [facility] [address] [place] [address] Dr. Bethany Killian Urobilinogen Qn (U) 0.2 {Ian'U}/dL Normal 0.2 - 1. 0 [facility] Comment on above: Performed By: #### U AMIC #### [facility] [address] [place] [address] Dr. Bethany Killian WBC 0-2 Abnormal NONE SEEN [facility] Comment on above: Performed By: #### U [facility] #### [facility] [address] [address] [address] Bethany Killian US CAROTID ART BILon [...] by: SAVAGE OATES Date: 2021-11-01 07:08 Normal [facility] FUNGAL CULTURE/SM, MISPending Sale To [facility] FUNGAL CULTURE/SM, [facility] [place] PATIENT: SUNNI BLACKBURN LOCATION: [id number] BILL#: [id number] : 42 AGE: SEX: M ORDERED BY: DARNELL PELLETIER: [facility] [place] COLLECTED: 10/19/16 00:00ANTIBIOTICS AT [place].: RECEIVED : 10/19/16 21:47SITE: R E S U L T S FUNGAL SMEAR FINAL 10/20/16 10:08 FLUORESCENT FUNGAL STAIN: NEGATIVE FUNGAL CULTURE/SM, MIS FINAL 11/06/16 10:46 NO FUNGI ISOLATED. Normal [facility] MISCELLANEOUS CULT./SM.BACT. on 10-19-2016 MISCELLANEOUS CULT./SM.BACT. PATIENT: SUNNI BLACKBURN LOCATION: [facility] BILL#: [id number] : 42 AGE: SEX: M ORDERED BY: DARNELL PELLETIER: MIS COLLECTED: 10/19/16 00:00ANTIBIOTICS AT [place].: RECEIVED : 10/19/16 22:24SITE: R E S U L T S GRAM STAIN FINAL 10/20/16 00:59 NO GRANULOCYTES OR ORGANISMS SEEN. MISCELLANEOUS CULT./SM.BACT. FINAL 10/22/16 11:43 2+ MIXED SKIN PAVITHRA Normal [facility] Vital Signs Date Time Vital Sign Value Performing Clinician Faci lity 01-31-2024 11:25-0500 Body height 170.2 cm Erlinda Chopra MD Work Phone: [facility] 01-31-2024 11:25-0500 Body mass index (BMI) [Ratio] 28.5 kg/m2 Erlinda Chopra MD Work Phone: [facility] 01-31-2024 11:25-0500 Body temperature 98.01 [degF] Erlinda Chopra MD Work Phone: [facility] 01-31-2024 11:25-0500 Body weight 82.56 kg Erlinda Chopra MD Work Phone: [facility] 01-31-2024 11:25-0500 Diastolic blood pressure 72 mm[Hg] Erlinda Chopra MD Work Phone: [facility] 01-31-2024 11:25-0500 Heart rate 67 /min Erlinda Chopra MD Work Phone: [facility] 01-31-2024 11:25-0500 Respiratory rate 18 /min Erlinda Chopra MD Work Phone: [facility] 01-31-2024 11:25-0500 SaO2% (BldA) [Mass fraction] 93 % Erlinda Chopra MD Work Phone: [facility] 01-31-2024 11:25-0500 Systolic blood pressure 172 mm[Hg] Erlinda Chopra MD Work Phone: [facility] 01-18-2024 13:41-0500 Body height 168.3 cm Jovany Biedenbach DO Work Phone: [facility] 01-18-2024 13:41-0500 Body mass index (BMI) [Ratio] 28.67 kg/m2 Jovany Biedenbach DO Work Phone: [facility] 01-18-2024 13:41-0500 Body weight 81.19 kg Jovany Biedenbach DO Work Phone: [facility] 01-04-2024 13:51-0500 Body height 168.3 cm Jovany Biedenbach DO Work Phone: [facility] 01-04-2024 13:51-0500 Body mass index (BMI) [Ratio] 28.67 kg/m2 Jovany Biedenbach DO Work Phone: [facility] 01-04-2024 13:51-0500 Body weight 81.19 kg Jovany Biedenbach DO Work Phone: [facility] 12-18-2023 10:53-0400 Body height 168.3 cm 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 INFORMATION SYSTEMS COORDINATOR Work Phone: [facility] 12-18-2023 10:53-0400 Body mass index (BMI) [Ratio] 28.8 kg/m2 Devi Thania INFORMATION SYSTEMS COORDINATOR Work Phone: [facility] 12-18-2023 10:53-0400 Body temperature 97.11 [degF] Devi Thania INFORMATION SYSTEMS COORDINATOR Work Phone: [facility] 12-18-2023 10:53-0400 Body weight 81.56 kg Devi Thania INFORMATION SYSTEMS COORDINATOR Work Phone: [facility] 12-18-2023 10:53-0400 Diastolic blood pressure 72 mm[Hg] Devi Thania INFORMATION SYSTEMS COORDINATOR Work Phone: [facility] 12-18-2023 10:53-0400 Heart rate 71 /min Devi Thania INFORMATION SYSTEMS COORDINATOR Work Phone: [facility] 12-18-2023 10:53-0400 Respiratory rate 18 /min 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 INFORMATION SYSTEMS COORDINATOR Work Phone: [facility] 12-18-2023 10:53-0400 SaO2% (BldA) [Mass fraction] 99 % 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 INFORMATION SYSTEMS COORDINATOR Work Phone: [facility] 12-18-2023 10:53-0400 Systolic blood pressure 132 mm[Hg] 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 INFORMATION SYSTEMS COORDINATOR Work Phone: [facility] 11-08-2023 10:19-0400 Body height 168.3 cm Jovany [employer] DO Work Phone: [facility] 11-08-2023 10:19-0400 Body mass index (BMI) [Ratio] 29.31 kg/m2 Jovany [employer] DO Work Phone: [facility] 11-08-2023 10:19-0400 Body weight 83.01 kg Jovany Tailoredzandra DO Work Phone: [facility] 10-19-2023 11:06-0400 Body height 168.91 cm [facility] 10-19-2023 11:06-0400 Body mass index (BMI) [Ratio] 28.6 kg/m2 [facility] 10-19-2023 11:06-0400 Body temperature 97.7 [degF] [facility] 10-19-2023 11:06-0400 Body weight 81.7 kg [facility] 10-19-2023 11:06-0400 Diastolic blood pressure 81 mm[Hg] [facility] 10-19-2023 11:06-0400 Heart rate 68 /min [facility] 10-19-2023 11:06-0400 Respiratory rate 16 /min [facility] 10-19-2023 11:06-0400 SaO2% (BldA) [Mass fraction] 95 % [facility] 10-19-2023 11:06-0400 Systolic blood pressure 132 mm[Hg] [facility] 07-12-2023 10:20-0400 Body height 167.6 cm Pacc 2 Work Phone: [facility] 07-12-2023 10:20-0400 Body mass index (BMI) [Ratio] 29.53 kg/m2 Pacc 2 Work Phone: [facility] 07-12-2023 10:20-0400 Body temperature 97.39 [degF] Pacc 2 Work Phone: [facility] 07-12-2023 10:20-0400 Body weight 83 kg Pacc 2 Work Phone: [facility] 07-12-2023 10:20-0400 Diastolic blood pressure 73 mm[Hg] Pacc 2 Work Phone: [facility] 07-12-2023 10:20-0400 Heart rate 75 /min Pacc 2 Work Phone: [facility] 07-12-2023 10:20-0400 Respiratory rate 16 /min Pacc 2 Work Phone: [facility] 07-12-2023 10:20-0400 SaO2% (BldA) [Mass fraction] 99 % Pacc 2 Work Phone: [facility] 07-12-2023 10:20-0400 Systolic blood pressure 156 mm[Hg] Pacc 2 Work Phone: [facility] 06-19-2023 08:23-0400 Body height 167.6 cm Rebeca Martinez MD Work Phone: [facility] 06-19-2023 08:23-0400 Body mass index (BMI) [Ratio] 30.51 kg/m2 Rebeca Martinez MD Work Phone: [facility] 06-19-2023 08:23-0400 Body temperature 98.01 [degF] Rebeca Martinez MD Work Phone: [facility] 06-19-2023 08:23-0400 Body weight 85.73 kg Rebeca Martinez MD Work Phone: [facility] 06-19-2023 08:23-0400 Diastolic blood pressure 77 mm[Hg] Rebeca Martinez MD Work Phone: [facility] 06-19-2023 08:23-0400 Heart rate 101 /min Rebeca Martinez MD Work Phone: [facility] 06-19-2023 08:23-0400 SaO2% (BldA) [Mass fraction] 99 % Rebeca Martinez MD Work Phone: [facility] 06-19-2023 08:23-0400 Systolic blood pressure 178 mm[Hg] Rebeca Martinez MD Work Phone: [facility] Encounters Encounter Date Encounter Type Care Provider Facility Start: 02-08-2024 End: 02-08-2024 Bamboo flowsheet Jovany Ovalle DO Work Phone: [facility] Start: 02-08-2024 End: 02-08-2024 Bamboo flowsheet Jovany Ovalle DO Work Phone: [facility] Start: 02-08-2024 End: 02-08-2024 ambulatory JOVANY OVALLE Not Available Start: 01-31-2024 End: 01-31-2024 Office outpatient visit 25 minutes [facility] MD [facility] Comment on above: Peripheral vascular disease ([facility]) (Primary Dx); Bilateral carotid artery stenosis; Cigarette smoker Start: 01-18-2024 End: 01-18-2024 Bamboo flowsheet Jovany Ovalle DO Work Phone: [facility] Start: 01-18-2024 End: 01-18-2024 Bamboo flowsheet Jovany Ovalle DO Work Phone: [facility] Start: 01-18-2024 End: 01-18-2024 Office outpatient visit 25 minutes Jovany Maya Biedenbach DO Work Phone: [facility] Comment on above: Gastroesophageal ref lux disease with esophagitis, unspecified whether hemorrhage (Primary Dx); Dysphagia, unspecified type Start: 01-18-2024 End: 01-18-2024 ambulatory JOVANY Trejo BIEDENBACH Not Available Start: 01-10-2024 End: 01-10-2024 Patient encounter procedure 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 Work Phone: [facility] Work Phone: Start: 01-10-2024 End: 01-10-2024 ambulatory 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 Work Phone: [facility] Work Phone: Start: 01-04-2024 End: 01-04-2024 Bamboo flowsheet Jovany Trejo Biedenbach DO Work Phone: [facility] Start: 01-04-2024 End: 01-04-2024 Bamboo flowsheet Jovany S Biedenbach DO Work Phone: [facility] Start: 01-04-2024 End: 01-04-2024 Office outpatient visit 15 minutes Jovany S Biedenbach DO Work Phone: [facility] Comment on above: Dysphagia, unspecifi ed type (Primary Dx); History of mastoidectomy Start: 01-04-2024 End: 01-04-2024 ambulatory JOVANY S BIEDENBACH Not Available Start: 12-18-2023 End: 12-18-2023 Bamboo flowsheet 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 INFORMATION SYSTEMS COORDINATOR Work Phone: [facility] Start: 12-18-2023 End: 12-18-2023 Bamboo flowsheet 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 INFORMATION SYSTEMS COORDINATOR Work Phone: [facility] Start: 12-18-2023 End: 12-18-2023 Patient encounter procedure 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 INFORMATION SYSTEMS COORDINATOR Work Phone: [facility] Comment on above: Encounter for subseq uent annual wellness visit (AWV) in Medicare patient (Primary Dx); Tobacco user; Primary hypertension (CMS/HCC); Pulmonary emphysema, unspecified emphysema type (CMS/HCC); Asymptomatic bilateral carotid artery stenosis; Dysphagia, unspecified type; Iron deficiency anemia, unspecified iron deficiency anemia type Start: 12-18-2023 End: 12-18-2023 ambulatory DEVI MONTEIRO Not Available Start: 12-11-2023 End: 12-11-2023 Clinisync Result Encounter 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 INFORMATION SYSTEMS COORDINATOR Work Phone: [facility] Unsolicited Start: 12-11-2023 End: 12-11-2023 Clinisync Result Encounter Devi Thania INFORMATION SYSTEMS COORDINATOR Work Phone: [facility] Unsolicited Start: 12-10-2023 End: 12-10-2023 Orders Only 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 INFORMATION SYSTEMS COORDINATOR Work Phone: [facility] Comment on above: Primary hypertension (CMS/HCC) (Primary Dx); Anemia, unspecified type Start: 11-08-2023 End: 11-08-2023 Bamboo flowsheet Jovany Ovalle DO Work Phone: [facility] Start: 11-08-2023 End: 11-08-2023 Bamboo flowsheet Jovany Ovalle DO Work Phone: [facility] Start: 11-08-2023 End: 11-08-2023 Office outpatient visit 25 minutes Jovany Ovalle DO Work Phone: [facility] Comment on above: History of mastoidec michael (Primary Dx); Decreased hearing of both ears; Dysfunction of Eustachian tube, unspecified laterality; Tobacco abuse Start: 11-08-2023 End: 11-08-2023 ambulatory JOVANY OVALLE Not Available Start: 10-19-2023 End: 10-19-2023 ambulatory [facility] Work Phone: Start: 10-19-2023 End: 10-19-2023 Patient encounter procedure [facility] Work Phone: Start: 10-18-2023 End: 10-18-2023 Telephone encounter Rebeca Martinez MD Work Phone: Neurosurgery Comment on above: Received Outside Med ical Records Start: 09-03-2023 Telephone encounter Berny Martinez MD Work Phone: Neurology Comment on above: 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 Start: 08-27-2023 Telephone encounter Berny Martinez MD Work Phone: Neurology Comment on above: Patient Question Start: 08-23-2023 End: 08-23-2023 ambulatory REBECA MARTINEZ Facility:[facility] Start: 08-23-2023 End: 08-23-2023 Patient encounter procedure Rebeca Martinez MD Work Phone: [facility] Comment on above: Cervical vertebral f usion (Primary Dx) Start: 07-30-2023 End: 07-30-2023 ambulatory DEVI JESS AICHHOLZ Facility:[facility] Start: 07-24-2023 End: 07-24-2023 ambulatory DEVI AICHHOLZ Not Available Start: 07-16-2023 End: 07-16-2023 ambulatory DEVI AICHHOLZ Not Available Start: 07-13-2023 Telephone encounter Clovis Gunderson APRN.CNP Work Phone: Ambulatory Surgery Comment on above: Medication Problem Start: 07-12-2023 End: 07-12-2023 Admission to establishment [facility] [place] [facility] Work Phone: Pre Anesthesia Start: 07-12-2023 End: 07-12-2023 ambulatory CLOVIS GUNDERSON Facility:[facility] Start: 07-12-2023 End: 07-12-2023 Anesthesia consultation [facility] [place] [facility] Work Phone: Pre Anesthesia Comment on above: Pre-op examination ( Primary Dx); Chronic obstructive pulmonary disease, unspecified COPD type (HCC); Primary hypertension; Chronic kidney disease, unspecified CKD stage; Essential (primary) hypertension; Tobacco user; Stenosis of left carotid artery; Anemia, unspecified type; COPD exacerbation (HCC); Peripheral vascular disease (HCC) Start: 07-12-2023 Encounter for other preprocedural examination REBECA MARTINEZ [facility] Start: 07-12-2023 End: 07-12-2023 Preprocedural examination done [place] [address] Work Phone: [facility] Work Phone: Start: 06-21-2023 End: 06-21-2023 ambulatory DEVI AICHHOLZ Not Available Start: 06-20-2023 Telephone encounter Berny Martinez MD Work Phone: Neurology Comment on above: Received Outside Med ical Records Start: 06-19-2023 Admission to [facility] Rebeca Martinez MD Work Phone: Neurosurgery Start: 06-19-2023 End: 06-19-2023 ambulatory Rebeca Martinez MD Work Phone: Neurosurgery Start: 06-19-2023 Patient encounter status Satya Martinez MD Work Phone: [facility] Start: 06-19-2023 End: 06-19-2023 Subsequent hospital visit by physician [facility] Radiology Comment on above: 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] Start: 06-19-2023 End: 06-19-2023 Patient encounter procedure Rebeca Martinez MD Work Phone: Neurosurgery Comment on above: 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 (Primary Dx); Cervical cord myelomalacia (HCC) Start: 05-14-2023 End: 05-14-2023 ambulatory DEVI AICHHOLZ Not Available Start: 05-03-2023 End: 05-03-2023 ambulatory JOVANY OVALLE Not Available Start: 04-18-2023 End: 04-18-2023 ambulatory DEVI AICHHOLZ Not Available Start: 04-10-2023 Clinisync Result Encounter Jessica Monteiro INFORMATION SYSTEMS COORDINATOR Work Phone: [facility] Unsolicited Start: 04-10-2023 Clinisync Result Encounter Jessica Monteiro INFORMATION SYSTEMS COORDINATOR Work Phone: [facility] Unsolicited Start: 04-03-2023 End: 04-03-2023 ambulatory DEVI FÁTIMAGavinoVASILEClau Not Available Start: 03-26-2023 End: 03-26-2023 ambulatory DELMY Maryam CALDWELLMENA Not Available Start: 07-25-2022 End: 07-26-2022 ambulatory GRAVEL INSPECTOR DEVI THANIA Facility:[facility] Start: 07-20-2022 End: 07-21-2022 ambulatory GRAVEL INSPECTOR DEVI THANIA Facility:[facility] Start: 06-11-2022 End: 06-11-[address] BART AL Facility:[facility] Start: 05-24-2022 End: 05-25-[address] SAVAGE OATES Facility:[facility] Start: 03-16-2022 End: 03-17-2022 ambulatory GRAVEL INSPECTOR DEVI THANIA Facility:[facility] Start: 02-24-2022 End: 02-25-2022 ambulatory GRAVEL INSPECTOR DEVI THANIA Facility:[facility] Start: 01-02-2022 End: 01-03-2022 ambulatory GRAVEL INSPECTOR DEVI THANIA Facility:[facility] Start: 10-29-2021 End: 10-30-[address] SAVAGE OATES Facility:[facility] Start: 07-27-2020 End: 10-31-2022 Patient encounter status 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 INFORMATION SYSTEMS COORDINATOR Work Phone: [facility] Procedures Date Procedure Procedure Detail Performing Clinician Start: 12-11-2023 ALL CBC WITH AUTO DIFF Devi Fátimagavinodarin INFORMATION SYSTEMS COORDINATOR Work Phone: Start: 07-12-2023 Antibody screen DIXON MARTINEZ Comment on above: Order Comment: Speci men Type: BLOOD SPECIMEN Ordering Facility: [facility] Address: [address] [place] [address] Performed By: #### 3 [id number], [id number] #### [facility] CLIA [id number] [address] [place] [address] [place] Start: 07-12-2023 Ecg routine ecg w/least 12 lds i&r only Clovismani Hydethea BROWNEGRAVEL INSPECTOR Work Phone: Start: 04-10-2023 ALL CBC WITH AUTO DIFF 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 INFORMATION SYSTEMS COORDINATOR Work Phone: Start: 01-02-2022 PSA screening VENITA MONTEIRO Comment on above: Performed By: #### F T4, PSASC ####[place] [address]Dr. Bethany Killian H/O: surgery History of mastoidectomy Linda Ovalle DO Work Phone: H/O: surgery History of mastoidectomy Linda Ovalle DO Work Phone: Plan of Treatment Date Care Activity Detail Author Start: 02-17-2029 DTaP,Tdap and Td Vac cines (3 - Td or Tdap) DTaP,Tdap and Td Vaccines (3 - Td or Tdap) [employer] Start: 02-17-2029 Urine microalbumin profile DTaP,Tdap,Td Vaccine (3 - Td or Tdap) [facility] Start: 08-07-2026 Diabetes Screening Diabetes Screenin [facility] Start: 07-11-2026 Diabetes Screening Diabetes Screenin [facility] Start: 01-30-2025 End: 01-30-2025 US Carotid arteries - bilateral Vas carotid duplex bilateral Vascular Ultrasound Routine Peripheral vascular disease ([facility]) Bilateral carotid artery stenosis Cigarette smoker Expected: 01/30/2025 (Approximate), Expires: 01/30/2025 [employer] Work Phone: Comment on above: Expected: 01/30/2025 (Approximate), Expires: 01/30/2025 Start: 05-09-2024 End: 05-09-2024 Patient encounter procedure [facility] Start: 03-18-2024 End: 03-18-2024 Patient encounter procedure 03/18/2024 9:20 AM EST Office Visit [facility] [address] [place] [address] 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 NP [address] [place] [address] [facility] Start: 02-21-2024 End: 02-21-2024 Patient encounter procedure [facility] General Comment on above: Cervical vertebral f usion [M43.22] 6 MONTH FOLLOW UP Start: 02-08-2024 End: 02-08-2024 Patient encounter procedure [facility] Comment on above: Arrived Start: 01-31-2024 End: 01-30-2025 US.doppler Extremity arteries - bilateral for physiologic artery study Vas art doppler lwr bilat mult lev/PVR Vascular Ultrasound Routine Peripheral vascular disease ([facility]) Bilateral carotid artery stenosis Cigarette smoker Expected: 01/31/2024, Expires: 01/30/2025 [facility] Comment on above: Expected: 01/31/2024 , Expires: 01/30/2025 Start: 01-18-2024 End: 01-18-2024 Patient encounter procedure [facility] Comment on above: Arrived Start: 01-05-2024 Tobacco Screening Tobacco Screening [facility] Start: 01-04-2024 End: 01-04-2024 Patient encounter procedure 01/04/2024 2:00 PM EST Office Visit [facility] [address] [place] [address] Jovany Ovalle DO [address] [place] [address] Dysphagia, unspecified type [facility] Comment on above: Dysphagia, unspecifi ed type Start: 01-04-2024 End: 01-03-2025 RF Esophagus Views W barium contrast PO FL MODIFIED BARIUM SWALLOW Imaging STAT Dysphagia, unspecified type Expected: 01/04/2024, Expires: 01/03/2025 [facility] Comment on above: Expected: 01/04/2024 , Expires: 01/03/2025 Start: 01-04-2024 End: 01-03-2025 RF Pharynx and Cervical esophagus Views W barium contrast PO FL esophagus pharynx Imaging STAT Dysphagia, unspecified type Expected: 01/04/2024 (Approximate), Expires: 01/03/2025 [facility] Work Phone: Comment on above: Expected: 01/04/2024 (Approximate), Expires: 01/03/2025 Start: 12-18-2023 End: 12-18-2023 Patient encounter procedure [facility] Comment on above: Tobacco user (Primar y Dx) Start: 12-10-2023 End: 12-09-2024 Basic metabolic 1998 panel - Serum or Plasma Basic metabolic panel Lab Routine Primary hypertension (CMS/HCC) Expected: 12/10/2023 (Approximate), Expires: 12/09/2024 [facility] Comment on above: Expected: 12/10/2023 (Approximate), Expires: 12/09/2024 Start: 12-10-2023 End: 12-09-2024 CBC W Auto Differential panel - Blood CBC and differential Lab Routine Anemia, unspecified type Expected: 12/10/2023 (Approximate), Expires: 12/09/2024 [facility] Work Phone: Comment on above: Expected: 12/10/2023 (Approximate), Expires: 12/09/2024 Start: 12-10-2023 End: 12-09-2024 Iron + transferrin + TIBC Iron + transferrin + TIBC Lab Routine Anemia, unspecified type Expected: 12/10/2023 (Approximate), Expires: 12/09/2024 [facility] Comment on above: Expected: 12/10/2023 (Approximate), Expires: 12/09/2024 Start: 11-08-2023 End: 11-08-2023 Patient encounter procedure 11/08/2023 10:15 AM EDT Office Visit [facility] [address] [place] [id number] Jovany Ovalle DO [address] [place] [address] Arrived [facility] Comment on above: Arrived Start: 10-28-2023 Influenza vaccination Influenza Vacc ine (#1) [facility] Start: 08-25-2023 Diabetes Screening Diabetes Screenin g [facility] Start: 08-23-2023 End: 08-23-2023 Patient encounter procedure 08/23/2023 11:40 AM EDT Office Visit [facility] [address] [place] [address] [place] [address] [place] [address] post op- 10 ARTHRODESIS ANTERIOR DISC PREP DISCECTOMY OSTEOPHYTECTOMY & DECOMPRESS NERVE ROOTS C' BELOW C2 [facility] Comment on above: post op- /10 ARTHRO DESIS ANTERIOR DISC PREP DISCECTOMY OSTEOPHYTECTOMY & DECOMPRESS NERVE ROOTS C' BELOW C2 Start: 08-06-2023 End: 08-06-2023 Admission to same day surgery center 08/06/2023 1:00 PM EDT - 08/06/2023 4:25 PM EDT Surgery [facility] Operating Room [address] [address] [place] [address] [place] [address] ARTHRODESIS ANTERIOR DISC PREP DISCECTOMY OSTEOPHYTECTOMY & DECOMPRESS NERVE ROOTS C' BELOW C2 [facility] Operating Room Comment on above: ARTHRODESIS ANTERIOR [...] physician 08/06/2023 1:00 PM EDT Hospital Encounter [facility] Operating Room [address] [address] [place] [address] [place] [place] [id number] 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.020] [facility] Operating Room Comment on above: Cervical disc [...] EDT Office [place] [address] SURGICAL REGISTRATION APPT [phone] [facility] Scre[facility] Comment on above: SURGICAL REGISTRATIO N APPT [phone] Start: 07-12-2023 End: 10-11-2023 TYPE AND SCREEN,30 DAY [facility] Work Phone: Comment on above: Expected: 07/12/2023 , Expires: 10/11/2023 Start: 07-12-2023 End: 07-12-2023 Admission to establishment 07/12/2023 11:00 AM EDT PAT Pre Anesthesia [address] [place] [address] 2, [facility] [place] [address] [place] [address] Pre admission testing surgery 08/05 Pre Anesthesia Comment on above: Pre admission testin g surgery 08/05 Start: 05-03-2023 End: 05-03-2023 Patient encounter procedure 05/03/2023 9:15 AM EST Office Visit [facility] [address] [place] [address] Jovany Ovalle, [address] [place] [address] [facility] Start: 04-24-2023 Covid-19 Vaccine () Covid-19 Vaccine () [facility] Start: 02-26-2023 Advance Directive Discussion Advance Directive Discussion [facility] Start: 02-26-2023 Behavioral Health Screening Behavioral Health Screening [facility] Start: 2006 Fall Risk Screening Fall Risk Screen [facility] Start: 2001 RSV Vaccine (1 - 1-d ose 60+ series) RSV Vaccine (1 - 1-dose 60+ series) [facility] Start: 07-09-1959 Anxiety Screening Anxiety Screening [facility] Start: 07-09-1959 Depression Screening Depression Scre ing [facility] Start: 07-09-1959 Spirometry Spirometry [facility] Start: 1953 Depression Screening Depression Scre [facility] ECG COMPLETE ECG COMPLETE ECG 07/12/2023 10:37 AM EDT [facility] End: 07-18-2024 XR CERV OTHER 4V AP/LAT/FLX/EXT XR CERV OTHER 4V AP/LAT/FLX/EXT Radiology Routine Cervical disc disorder with myelopathy of mid-cervical region 1 Occurrences starting 06/19/2023 until 07/18/2024 [facility] Work Phone: Comment on above: 1 Occurrences starti ng 06/19/2023 until 07/18/2024 XR CERV OTHER 4V AP/LAT/FLX/EXT XR CERV OTHER 4V AP/LAT/FLX/EXT Radiology Routine Cervical disc disorder with myelopathy of mid-cervical region 06/19/2023 10:23 AM EDT [facility] End: 09-21-2024 XR Cervical spine AP and Lateral XR CERV GENERAL 2V AP/LAT Radiology Routine Cervical vertebral fusion 1 Occurrences starting 08/23/2023 until 09/21/2024 [facility] Work Phone: Comment on above: 1 Occurrences starti ng 08/23/2023 until 09/21/2024 Immunizations Immunization Date Immunization Notes Care Provider [facility] 12-10-2023 influenza, high dose seasonal, preservative-free Jovany Biedenbach DO Work Phone: [facility] 12-10-2023 influenza virus vacc ine, unspecified formulation Devi Aichholz INFORMATION SYSTEMS COORDINATOR Work Phone: [facility] 12-22-2022 Influenza, Seasonal, Quadrivalent, Adjuvanted Jovany Bigreggenzandra DO Work Phone: [facility] 12-22-2022 influenza virus vacc ine, unspecified formulation Rebeca Martinez MD Work Phone: [facility] 08-15-2022 Pneumococcal Conjuga te PCV 20 Devi Aichholz INFORMATION SYSTEMS COORDINATOR Work Phone: [facility] 12-26-2021 Influenza, High-dose Seasonal, Quadrivalent, Preservative Free Devi Aichholz INFORMATION SYSTEMS COORDINATOR Work Phone: [facility] 12-21-2020 influenza, injectabl e, quadrivalent, preservative free Devi Aichholz INFORMATION SYSTEMS COORDINATOR Work Phone: [facility] 12-01-2020 Influenza, Seasonal, Quadrivalent, Adjuvanted Devi Aichholz INFORMATION SYSTEMS COORDINATOR Work Phone: [facility] 11-16-2019 influenza, high dose seasonal, preservative-free Devi Aichholz INFORMATION SYSTEMS COORDINATOR Work Phone: [facility] 09-06-2019 hepatitis A vaccine, adult dosage Devi Aichholz INFORMATION SYSTEMS COORDINATOR Work Phone: [facility] 07-04-2019 zoster vaccine recombinant Devi Aichholz INFORMATION SYSTEMS COORDINATOR Work Phone: [facility] 04-08-2019 zoster vaccine recombinant Devi Aichholz INFORMATION SYSTEMS COORDINATOR Work Phone: [facility] 02-17-2019 hepatitis A vaccine, adult dosage Devi Aichholz INFORMATION SYSTEMS COORDINATOR Work Phone: [facility] [facility] tetanus toxoid, redu renan diphtheria toxoid, and acellular pertussis vaccine, adsorbed Devi Aichholz INFORMATION SYSTEMS COORDINATOR Work Phone: [facility] 12-03-2018 Seasonal trivalent influenza vaccine, adjuvanted, preservative free Devi Aichholz INFORMATION SYSTEMS COORDINATOR Work Phone: [facility] 08-14-2016 tetanus toxoid, redu renan diphtheria toxoid, and acellular pertussis vaccine, adsorbed Devi Aichholz INFORMATION SYSTEMS COORDINATOR Work Phone: [facility] 12-13-2015 pneumococcal polysaccharide vaccine, 23 valent Devi Aichholz INFORMATION SYSTEMS COORDINATOR Work Phone: [facility] 12-08-2015 influenza, injectabl e, quadrivalent, preservative free Devi Aichholz INFORMATION SYSTEMS COORDINATOR Work Phone: [facility] 12-09-2014 influenza, injectabl e, quadrivalent, preservative free Devi Aichholz INFORMATION SYSTEMS COORDINATOR Work Phone: [facility] 10-07-2014 pneumococcal conjuga te vaccine, 13 valent Devi Aichholz INFORMATION SYSTEMS COORDINATOR Work Phone: [facility] 08-11-2014 pneumococcal conjuga te vaccine, 13 valent Devi Aichholz INFORMATION SYSTEMS COORDINATOR Work Phone: [facility] Payers Date Payer Category Payer Self-pay 2022 Private Health Insurance [id number] 2022 Unknown AARP AARP [id number] 2022-Present [address] [place] [address] [id number] 2018 Managed Care Other (unspecified) [place] [id number] 2006 Medicare [id number] .[id number] 1959 Medicare [id number] 1959 Unknown [id number] 1941 Unknown [id number] 2.16.840.1.780888.3.579.2 .593 1941 Unknown [id number] 2.16.840.1.158123.3.579.2 .59 1941 Unknown [id number] 2.16.840.1.583820.3.579.2 .593 1941 Unknown [id number] 2.16.840.1.770849.3.579.2 .59 1941 Unknown [id number] 2.16.840.1.899353.3.579.2 .593 1941 Unknown [id number] 2.16.840.1.950676.3.579.2 .59 1941 Unknown [id number] 2.16.840.1.326561.3.579.2 .593 1941 Unknown [id number] 2.16.840.1.480190.3.579.2 .593 1941 Unknown [id number] 2.16.840.1.331731.3.579.2 .1258 1941 Unknown [id number] 2.16.840.1.707707.3.579.2 .125 1941 Unknown [id number] 2.16.840.1.123761.3.579.2 .1258 1941 Unknown [id number] 2.16.840.1.325144.3.579.2 .1258 1941 Unknown [id number] 2.16.840.1.801559.3.579.2 .1258 1941 Unknown [id number] 2.16.840.1.922127.3.579.2 .1258 1941 Unknown [id number] 2.16.840.1.758852.3.579.2 .1258 1941 Unknown [id number] 2.16.840.1.760948.3.579.2 .1258 1941 Unknown [id number] 2.16.840.1.397191.3.579.2 .1258 1941 Unknown [id number] 2.16.840.1.509812.3.579.2 .1258 1941 Unknown [id number] 2.16.840.1.869999.3.579.2 .1258 1941 Unknown [id number] 2.16.840.1.768870.3.579.2 .1258 1941 Unknown [id number] 2.16.840.1.882715.3.579.2 .1259 Unknown [id number] 2.16.840.1.888838.3.579.2 .531 Social History Date Type Detail Facility Start: 09-19-2022 End: 11-08-2023 Tobacco smoking status NHIS Smokes tobacco daily [facility] Start: 02-26-1957 History of tobacco use Cigarette Smo ker [facility] Start: 09-19-2022 End: 12-18-2023 Cigarettes smoked current (pack per day) - Reported 0.5 [facility] Start: 09-19-2022 End: 11-08-2023 Tobacco use and exposure Smokeless tobacco non-user [facility] Start: 03-26-2023 End: 02-07-2024 Alcohol intake Lifetime non-drinker (finding) [facility] Start: 03-26-2023 End: 12-18-2023 Tobacco use panel [facility] Start: 09-19-2022 Tobacco Comment 11-20 cigarettes/day [facility] Start: 09-19-2022 Alcohol Comment Caffeine 3-4 c ups per day [facility] Start: 1940 Sex Assigned At Male [facility] Start: 08-30-2022 Gender identity Identifies as male gender (finding) [facility] National Score (1-10 0), lower number is lower risk [facility] Start: 1940 Sex Assigned At Not on file [facility] Start: 07-12-2023 End: 08-23-2023 Alcohol intake Ex-drinker (finding) [facility] Work Phone: Start: 10-01-2014 End: 01-11-2024 Sex Male (finding) [facility] Start: 11-18-2020 [facility]asional tobacco smoker [facility] Start: 11-18-2020 Tobacco Comment half pack a day [facility] Medical Equipment Procedure Code Equipment Code Equipment Origin al Text Equipment Identifier Dates Spacer Avs 4d 7m m Spinal Bone Plug - [id number] Start: 08-06-2023 Spacer Avs 4d 7m m Spinal Bone Plug - [id number] Start: 08-06-2023 Plate Aviator Titanium 28x17.4x2.5mm Bone Level 2 Automatic Lock System - [id number] Start: 08-06-2023 Screw Aviator 4m m Titanium 14mm Bone Variable Angle Self Drill Nonsterile - [id number] Start: 08-06-2023 Ptc Photofix 0.8x8cm [facility] [id number] - [id number] Start: 08-23-2020 Comment on above: Description: LEFT CA ROTID ARTERY Clinical Notes 05-17-2023 to 01-31-2024 Assessment & Plan Note - Erlinda Chopra MD - 01/31/2024 11:49 AM ESTAssessment & Plan Note - Erlinda Chopra MD - 01/31/2024 11:49 AM ESTMootmasz Chopra MD - 01/31/2024 11:30 AM EST Note Date & Type Note Facility 01-31-2024 Evaluation + Plan note Associated Problem(s): Cigarette smoker Counseled him smoking cessation for 3 minutes. [facility] 01-31-2024 Miscellaneous Notes Associated Problem(s): Cigarette smoker Counseled him smoking cessation for 3 minutes. Associated Problem(s): Peripheral vascular disease (CMS-HCC) We will get PVR. Aspirin and Plavix. Counseled him on smoking cessation as well. Associated Problem(s): Carotid stenosis Carotid duplex ultrasound. Continue aspirin Plavix and statin. documented in this encounter [facility] 01-31-2024 Evaluation + Plan note Associated Problem(s): Peripheral vascular disease (CMS-HCC) We will get PVR. Aspirin and Plavix. Counseled him on smoking cessation as well. [facility] 01-31-2024 Evaluation + Plan note Associated Problem(s): Carotid stenosis Carotid duplex ultrasound. Continue aspirin Plavix and statin. [facility] 01-31-2024 History of Presen t illness Narrative Images from the original note were not included. To: Nannette Long, TICKET TAKER FERRYBOAT-GRAVEL INSPECTOR HPI: Sunni Blackburn is a 83 y.o. male with Known history of carotid stenosis status post left carotid endarterectomy. No recent testing. No stroke or mini stroke. He has bilateral lower extremity claudication with no recent lower extremity testing. There is concern about rest pain he says at night he feels discomfort in his leg he wakes up walks a little bit and that helps with his leg. It seems like there is improvement with dependency.. Review of Systems: Review of Systems Constitutional: Negative. HENT: Negative. Respiratory: Negative. Cardiovascular: Negative. Gastrointestinal: Negative. Endocrine: Negative. Genitourinary: Negative. Musculoskeletal: Negative. Skin: Negative. Neurological: Negative. Hematological: Negative. Medications: Current Outpatient Medications on File Prior to Visit Medication Sig Dispense Refill amLODIPine (NORVASC) 5 mg tablet Take 1 tablet (5 mg total) by mouth in the morning. 0 aspirin 81 mg Take 1 tablet (81 mg total) by mouth in the morning. lisinopril (PRINIVIL,ZESTRIL) 40 mg tablet Take 1 tablet (40 mg total) by mouth in the morning. 0 vit C/E/Zn/coppr/lutein/zeaxan (PRESERVISION AREDS-2 ORAL) Take 1 tablet by mouth daily. clopidogreL (PLAVIX) 75 mg tablet Take 1 tablet (75 mg total) by mouth in the morning. (Patient not taking: Reported on 01/31/2024) hydroCHLOROthiazide (MICROZIDE) 12.5 mg capsule Take 1 capsule (12.5 mg total) by mouth daily. (Patient not taking: Reported on 01/31/2024) 0 No current facility-administered medications on file prior to visit. Past Medical History: Past Medical History: Diagnosis Date Cataracts, bilateral Hearing loss Hyperlipidemia Hypertension Past Surgical History: Past Surgical History: Procedure Laterality Date COLONOSCOPY ENDARTERECTOMY CAROTID Left 08/23/2020 Performed by Jamie Newton MD at [facility] EXTERNAL EAR SURGERY 2 EYE SURGERY PATCH ANGIOPLASTY CAROTID Left 08/23/2020 Performed by Jamie Newton MD at [facility] TONSILLECTOMY VASECTOMY Social and Family History: Social History Socioeconomic History Marital status: Spouse name: Not on file Number of children: Not on file Years of education: Not on file Highest education level: Not on file Occupational History Not on file Tobacco Use Smoking status: Some Days Current packs/day: 0.50 Types: Cigarettes Smokeless tobacco: Never Tobacco comments: half pack a day Vaping Use Vaping status: Never Used Substance and Sexual Activity Alcohol use: Never Drug use: Never Sexual activity: Not Currently Other Topics Concern Caffeine Use Yes Comment: 3 cups of coffee daily Social History Narrative Not on file Social Drivers of Health Financial Resource Strain: Not on file Food Insecurity: Not on file Transportation Needs: Not on file Physical Activity: Not on file Stress: Not on file Social Connections: Not on file Interpersonal Safety: Not on file Housing Instability: Not on file Family History Problem Relation Age of Onset Hyperlipidemia Father Prostate cancer Father Hyperlipidemia Mother No Known Problems Sister Recent Labs: Recent and relative labs were reviewed and interpreted and contributed to the assessment and plan below. Vitals: BP 172/72 (BP Site: Left Arm, BP Postition: Sitting, BP CUFF SIZE: M (9-13 inches)) Pulse 67 Temp 36.7 C (98 F) (Temporal) Resp 18 Ht 170.2 cm (5' 7.01 ) Wt 82.6 kg (182 lb) SpO2 93% BMI 28.50 kg/m Body mass index is 28.5 kg/m . Physical Exam: Physical Exam Constitutional: Appearance: Normal appearance. HENT: Head: Normocephalic and atraumatic. Mouth/Throat: Mouth: Mucous membranes are moist. Eyes: Extraocular Movements: Extraocular movements intact. Pupils: Pupils are equal, round, and reactive to light. Cardiovascular: Rate and Rhythm: Normal rate and regular rhythm. Pulmonary: Effort: Pulmonary effort is normal. Breath sounds: Normal breath sounds. Abdominal: General: Abdomen is flat. Bowel sounds are normal. Palpations: Abdomen is soft. Musculoskeletal: General: Normal range of motion. Cervical back: Normal range of motion. Skin: General: Skin is warm and dry. Neurological: General: No focal deficit present. Mental Status: He is alert and oriented to person, place, and time. Mental status is at baseline. Psychiatric: Mood and Affect: Mood normal. Behavior: Behavior normal. Thought Content: Thought content normal. Judgment: Judgment normal. Recent testing: Assessment and Plan: Problem List Peripheral vascular disease (CMS-HCC) - Primary Current Assessment & Plan We will get PVR. Aspirin and Plavix. Counseled him on smoking cessation as well. Carotid stenosis Current Assessment & Plan Carotid duplex ultrasound. Continue aspirin Plavix and statin. Cigarette smoker Current Assessment & Plan Counseled him smoking cessation for 3 minutes. Sunni was seen today for 1year follow up testing vas art doppler lwr bilat ashlie lev/. Diagnoses and all orders for this visit: Peripheral vascular disease ([facility]-HCC) Bilateral carotid artery stenosis Cigarette smoker Erlinda Chopra MD, FLY, RPVI, FSVS, FACS [facility] [employer] [facility] This note was created with the assistance of a speech recognition program. While intending to generate a timely document that accurately reflects the content of the visit, no guarantee can be provided that every grammatical or spelling mistake has been or will be identified or corrected. Thank you for your understanding. documented in this encounter [facility] 01-31-2024 Instructions Erlinda Chopra MD - 01/31/2024 11:30 AM EST Are You Ready To Kick The Habit? Free Tobacco Cessation Resources [facility] Services [facility] Centers provide all employees with free tobacco cessation services that include: Counseling to understand nicotine addiction Education about medications that can help you successfully quit Assistance with developing a plan to quit Call to set up an individual appointment or find out when group classes will be held: [facility]: [phone] [facility]: [phone] [facility]: [phone] [facility]: [phone] Quit Smoking Action Plan and Resources [facility] offers an eight-week, online smoking cessation plan to all [facility] employees, regardless of whether [place] is your medical insurance provider. Go to www.SafeTool.org/employeewell ness and click the Health Risk Assessment and Resources link to get started. In the Hbopz1Xkgdjb menu, click Action Plans instead of Health Risk Assessment to access the Quit Smoking Action Plan. Additional smoking cessation resources are also available to all [facility] employees on the Tdrra5Vvwtcr web page at www.YooLotto/quit smoking. [place] Tobacco Cessation Program If [place] is your medical insurance provider, there are more free resources available to you, including: No copays or deductibles on local tobacco cessation counseling services to help you quit Prescription assistance for tobacco cessation medications to help you quit For details about the tobacco cessation program available to [place] members, go to www.[employer]ooLotto (Search: Tobacco Cessation Program). [place] Tobacco Quit Line 5-249-XDSO-NOW ( ) is a toll-free, telephonic service that helps [place] residents quit smoking and using tobacco. It is staffed by experts who tailor a quit plan for you and provide you with advice. [place] Tobacco Quit Line 3-844-OUMX-NOW ( ) is a toll-free, telephonic service that helps [place] residents quit smoking and using tobacco. It is staffed by experts who tailor a quit plan for you and provide you with advice. Two weeks of nicotine replacement therapy may be provided at no charge, if needed. Additional Resources These national organizations also offer free information and resources to help you quit tobacco: [place] [employer]--www.cancer.org/healthy/ stayawayfromtobacco [place] [employer]--www.heart.org (Search: Quit Smoking) Centers for Disease Control and Prevention--www.cdc.gov/tobacco [place] [employer]--www.lungusa.org documented in this encounter [facility] 01-18-2024 History of Presen t illness Narrative Subjective Patient ID: Sunni Blackburn is a 83 y.o. male who presents for Dysphagia (MBS / Esoph results) HPI This patient presents for recheck of dysphagia. Patient has had symptoms with solid foods and pills getting stuck in his throat ever since undergoing cervical fusion surgery. Recently underwent modified barium swallow. Continues to have symptoms. Able to drink without difficulties. Review of Systems Patient denies any pain or fever. Continues to have difficulties with food getting stuck in his throat. The rest of his review of systems is negative. 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 Dermatitis 01/18/2024 Dyslipidemia ([facility]) 07/27/2020 Elevated BUN Elevated serum creatinine Emphysema/COPD ([facility]) 05/14/2023 Essential hypertension ([facility]) 07/27/2020 Hand injury right History of cholesteatoma 05/14/2023 Hx R cholesteatoma Leg cramps Mixed hearing loss 10/31/2022 Peripheral vascular disease ([facility]) 07/27/2020 Sudden left hearing loss 10/31/2022 Thyroid nodule ([facility]) 07/19/20=reviewed findings with pt./benign, follow up 1 year. 07/17: stable nodules Tobacco user 05/14/2023 Current Outpatient Medications: amLODIPine (Norvasc) 10 MG tablet, Take 1 tablet (10 mg) by mouth Daily, Disp: 90 tablet, Rfl: 1 fluorouracil (Efudex) 5 % cream, Apply 1 application topically at bedtime HS to Forehead ,temples, scalp and part line 3 times a week., Disp: , Rfl: lisinopril 40 MG tablet, Take 1 tablet (40 mg) by mouth Daily, Disp: 90 tablet, Rfl: 1 Multiple Vitamins-Minerals (PreserVision AREDS 2) capsule, as directed Orally, Disp: , Rfl: albuterol HFA 90 mcg/act inhaler, Inhale 2 puffs every 6 (six) hours if needed for wheezing, Disp: 18 g, Rfl: 1 omeprazole (PriLOSEC) [address] capsule, Take 1 capsule (40 mg) by mouth in the morning. Take before meals. Do not crush or chew.., Disp: 30 capsule, Rfl: 1 Past Surgical History: Procedure Laterality Date CAROTID ENDARTERECTOMY Left 08/23/2020 CERVICAL FUSION 08/06/2023 INNER EAR SURGERY 1989 had two inner ear surgeries cysts inside INNER EAR SURGERY 2015 eardrum repair MASTOID SURGERY Right Right mastoidectomy x 2 - Dr Granados TYMPANOPLASTY Left 10/2015 Dr Oswald Social History Socioeconomic History Marital status: Spouse name: Not on file Number of children: Not on file Years of education: Not on file Highest education level: Not on file Occupational History Not on file Tobacco Use Smoking status: Every Day Current packs/day: 0.50 Types: Cigarettes Smokeless tobacco: Never Tobacco comments: 11-20 cigarettes/day Substance and Sexual Activity Alcohol use: Never Comment: Caffeine 3-4 cups per day Drug use: Never Sexual activity: Defer Other Topics Concern Not on file Social History Narrative Not on file Social Drivers of Health Financial Resource Strain: Not on file Food Insecurity: Not on file Transportation Needs: Not on file Physical Activity: Not on file Stress: Not on file Social Connections: Not on file Intimate Partner Violence: Not on file Housing Stability: Not on file Objective ENT Physical Exam General Examination: General overview: Normal, age-appropriate, no evidence of distress Head: Normocephalic, atraumatic Eyes: Pupils are equally round and reactive to light and accommodation, extraocular muscles are intact Ears: External ear architecture within normal limits, ear canals are patent, tympanic membranes are intact. Nose: External nose unremarkable, nares patent, septum intact, no evidence of congestion. Oral cavity: Mucosa moist, no evidence of ulcer, mass, or lesion Throat: Clear, review of his modified barium swallow does reveal evidence of esophageal spasms with evidence of reflux. No evidence of physical occlusion. Neck/thyroid: Neck supple, decreased range of motion, no cervical lymphadenopathy, no evidence of thyromegaly Lymph nodes: No cervical lymphadenopathy Skin: Warm and dry, no evidence of suspicious lesions, no rash Heart: No jugular venous distention, point of maximal impulse normal Lungs: Good air movement, no audible wheezing, no shortness of breath Chest: Normal shape and expansion Abdomen: Normal, soft, nontender, nondistended Musculoskeletal: Cervical spine normal, full range of motion Extremities: No clubbing, cyanosis, or edema Peripheral pulses: 2+ radial, 2+ carotid Neurologic: Alert and oriented, cranial nerves 2-12 are grossly intact Psych: Alert and oriented, normal affect, no evidence of distress Assessment/Plan Diagnoses and all orders for this visit: Gastroesophageal reflux disease with esophagitis, unspecified whether hemorrhage Comments: We will start this patient on omeprazole for treatment of his evidence of reflux esophagitis. Observe for improvement Dysphagia, unspecified type Comments: Do recommend direct esophagoscopy with dilation to look for improvement of his swallowing difficulties. Orders: - omeprazole (PriLOSEC) [address] capsule; Take 1 capsule (40 mg) by mouth in the morning. Take before meals. Do not crush or chew.. Esophagoscopy with/ without biopsy and or dilation is recommended. All of the risks, aspects, options, indications and reasonable expectations are reviewed. Risks include but are not limited to bleeding, infection, perforation, injury to the esophagus, need for further surgery, breathing difficulty, dental injury, poor healing, serous disability and . documented in this encounter [facility] 01-04-2024 History of Presen t illness Narrative Subjective Patient ID: Sunni Blackburn is a 83 y.o. male who presents for Dysphagia (New Problem : Dysphagia) HPI 83-year-old white male presents today for evaluation of dysphagia. Patient has had significant difficulty since undergoing anterior cervical fusion surgery. Was told that he was having some difficulties as result of postoperative swelling. This has not improved. Surgery was in July of this year. Review of Systems Patient denies any fever or pain. Does describe significant difficulties with swallowing. Most significant when trying to swallow a large pill. Denies any difficulties with voice. The rest of his review of systems is negative. 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 10/31/2022 Chronic myringitis of left ear 10/31/2022 Dyslipidemia ([facility]) 07/27/2020 Elevated BUN Elevated serum creatinine Emphysema/COPD ([facility]) 05/14/2023 Essential hypertension ([facility]) 07/27/2020 Hand injury right History of cholesteatoma 05/14/2023 Hx R cholesteatoma Leg cramps Mixed hearing loss 10/31/2022 Peripheral vascular disease ([facility]) 07/27/2020 Sudden left hearing loss 10/31/2022 Thyroid nodule ([facility]) 07/19/20=reviewed findings with pt./benign, follow up 1 year. 07/17: stable nodules Tobacco user 05/14/2023 Current Outpatient Medications: amLODIPine (Norvasc) 10 MG tablet, Take 1 tablet (10 mg) by mouth Daily, Disp: 90 tablet, Rfl: 1 fluorouracil (Efudex) 5 % cream, Apply 1 application topically at bedtime HS to Forehead ,temples, scalp and part line 3 times a week., Disp: , Rfl: lisinopril 40 MG tablet, Take 1 tablet (40 mg) by mouth Daily, Disp: 90 tablet, Rfl: 1 Multiple Vitamins-Minerals (PreserVision AREDS 2) capsule, as directed Orally, Disp: , Rfl: albuterol HFA 90 mcg/act inhaler, Inhale 2 puffs every 6 (six) hours if needed for wheezing, Disp: 18 g, Rfl: 1 Past Surgical History: Procedure Laterality Date CAROTID ENDARTERECTOMY Left 08/23/2020 CERVICAL FUSION 08/06/2023 INNER EAR SURGERY 1989 had two inner ear surgeries cysts inside INNER EAR SURGERY 2015 eardrum repair MASTOID SURGERY Right Right mastoidectomy x 2 - Dr Granados TYMPANOPLASTY Left 10/2015 Dr Oswald Social History Socioeconomic History Marital status: Spouse name: Not on file Number of children: Not on file Years of education: Not on file Highest education level: Not on file Occupational History Not on file Tobacco Use Smoking status: Every Day Current packs/day: 0.50 Types: Cigarettes Smokeless tobacco: Never Tobacco comments: 11-20 cigarettes/day Substance and Sexual Activity Alcohol use: Never Comment: Caffeine 3-4 cups per day Drug use: Never Sexual activity: Defer Other Topics Concern Not on file Social History Narrative Not on file Social Drivers of Health Financial Resource Strain: Not on file Food Insecurity: Not on file Transportation Needs: Not on file Physical Activity: Not on file Stress: Not on file Social Connections: Not on file Intimate Partner Violence: Not on file Housing Stability: Not on file Objective ENT Physical Exam General Examination: General overview: Normal, age-appropriate, no evidence of distress Head: Normocephalic, atraumatic Eyes: Pupils are equally round and reactive to light and accommodation, extraocular muscles are intact Ears: External ear architecture within normal limits, ear canals are patent, tympanic membranes are intact. Obvious evidence of prior ear surgery. Nose: External nose unremarkable, nares patent, septum intact, no evidence of congestion. Oral cavity: Mucosa moist, no evidence of ulcer, mass, or lesion Throat: Clear Neck/thyroid: Neck supple, full range of motion, no cervical lymphadenopathy, no evidence of thyromegaly Evidence of prior surgical intervention. Lymph nodes: No cervical lymphadenopathy Skin: Warm and dry, no evidence of suspicious lesions, no rash Heart: No jugular venous distention, point of maximal impulse normal Lungs: Good air movement, no audible wheezing, no shortness of breath Chest: Normal shape and expansion Abdomen: Normal, soft, nontender, nondistended Musculoskeletal: Cervical spine normal, full range of motion Extremities: No clubbing, cyanosis, or edema Peripheral pulses: 2+ radial, 2+ carotid Neurologic: Alert and oriented, cranial nerves 2-12 are grossly intact Psych: Alert and oriented, normal affect, no evidence of distress Assessment/Plan Diagnoses and all orders for this visit: Dysphagia, unspecified type Comments: will check modified barium swallow and esophagram Orders: - Ambulatory referral to ENT - FL esophagus pharynx; Future - [place] MODIFIED BARIUM SWALLOW; Future History of mastoidectomy Comments: recommend mastoid cavity care on a regular basis documented in this encounter [facility] 12-18-2023 History of Presen t illness Narrative Associated Problem(s): DONNA (iron deficiency anemia) Pt does report that he does have fatigue, is unable to tolerate oral iron supplement He would like to trial an IV iron infusion Associated Problem(s): Dysphagia, unspecified Will refer to ENT Associated Problem(s): Asymptomatic bilateral carotid artery stenosis Cont with vascular Associated Problem(s): Primary hypertension (CMS/HCC) Stable no dose changes Associated Problem(s): Emphysema/COPD (CMS/HCC) Stable Associated Problem(s): Encounter for subsequent annual wellness visit (AWV) in Medicare patient Reviewed Ht/Wt/BMI Recommend eye exam yearly Recommend dental exams twice a year Balance work/leisure activities Exercises is recommended most days of the week (appropriate as chronic conditions allow) Follow up yearly and prn Images from the original note were not included. Britzak Blackburn is a 83 y.o. male presents with chief complaint of No chief complaint on file. 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 The current episode started more than 1 year ago. The problem is unchanged. The problem is controlled. Pertinent negatives include no blurred vision, chest pain, headaches, neck pain, orthopnea, palpitations, peripheral edema or shortness of breath. There are no associated agents to hypertension. Risk factors for coronary artery disease include obesity. Past treatments include calcium channel blockers and MONIKA inhibitors. The current treatment provides significant improvement. There are no compliance problems. SUBJECTIVE: MEDICATIONS: Current Outpatient Medications Medication Instructions albuterol HFA 90 mcg/act inhaler 2 puffs, Inhalation, Every 6 hours PRN amLODIPine (NORVASC) 10 mg, Oral, Daily aspirin 81 mg, Oral, Daily RT benzonatate (Tessalon) 200 MG capsule TAKE 1 CAPSULE BY MOUTH THREE TIMES DAILY FOR COUGH FOR 30 DAYS cyclobenzaprine (FLEXERIL) 10 mg, Oral, Every 8 hours PRN docusate sodium (COLACE) 100 mg, Oral, 2 times daily fluorouracil (Efudex) 5 % cream 1 application , Topical, Nightly, HS to Forehead ,temples, scalp and part line 3 times a week. hydrOXYzine HCl (Atarax) 25 MG tablet Twice daily lisinopril 40 mg, Oral, Daily Multiple Vitamins-Minerals (PreserVision AREDS 2) capsule as directed Orally oxyCODONE (ROXICODONE) 5 mg, Oral, Every 6 hours PRN ALLERGIES: Allergies Allergen Reactions Amoxicillin Nausea Only Amoxicillin-Pot Clavulanate GI intolerance Bacitracin Other Reaction(s): Unknown Bacitracin-Polymyxin B Swelling Montelukast Other Reaction(s): facial swelling Neomycin Other Reaction(s): Unknown Other other Polymyxin B Other Reaction(s): Unknown Statins MUSCLE WEAKNESS Benzalkonium Chloride Rash Blisters/scarring on skin. REVIEW OF SYMPTOMS: Review of Systems Constitutional: Negative for activity change, appetite change and unexpected weight change. HENT: Negative for ear pain, nosebleeds, sneezing, trouble swallowing and voice change. Dysphagia Eyes: Negative for blurred vision, pain, discharge and visual disturbance. Respiratory: Positive for cough. Negative for apnea, chest tightness, shortness of breath and wheezing. Cardiovascular: Negative for chest pain, palpitations, orthopnea and leg swelling. Gastrointestinal: Negative for abdominal distention, blood in stool, constipation and diarrhea. Genitourinary: Negative for decreased urine volume, difficulty urinating, dysuria and hematuria. Musculoskeletal: Positive for arthralgias and back pain. Negative for neck pain. Skin: Negative for color change. Neurological: Negative for dizziness, tremors, seizures and headaches. Psychiatric/Behavioral: Negative for agitation, decreased concentration, hallucinations, self-injury and suicidal ideas. The patient is not nervous/anxious. Hematological: Negative for adenopathy. Does not bruise/bleed easily. Endocrine: Negative for cold intolerance, heat intolerance, polydipsia and polyuria. Allergic/Immunologic: Negative for environmental allergies and food allergies. 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 10/31/2022 Dyslipidemia ([facility]) 07/27/2020 Elevated BUN Elevated serum creatinine Emphysema/COPD ([facility]) 05/14/2023 Essential hypertension ([facility]) 07/27/2020 Hand injury right History of cholesteatoma 05/14/2023 Hx R cholesteatoma Leg cramps Mixed hearing loss 10/31/2022 Peripheral vascular disease ([facility]) 07/27/2020 Sudden left hearing loss 10/31/2022 Thyroid nodule ([facility]) 07/19/20=reviewed findings with pt./benign, follow up 1 year. 07/17: stable nodules Tobacco user 05/14/2023 Past Surgical History: Procedure Laterality Date CAROTID ENDARTERECTOMY Left 08/23/2020 CERVICAL FUSION 08/06/2023 INNER EAR SURGERY 1989 had two inner ear surgeries cysts inside INNER EAR SURGERY 2016 eardrum repair MASTOID SURGERY Right Right mastoidectomy x 2 - Dr Granados TYMPANOPLASTY Left 10/2015 Dr Oswald family history includes Cancer in his father; Diabetes in his brother; Heart attack in his brother and father; Heart disease in his father, mother, and sister; Hyperlipidemia in his sister; Hypertension in his father and sister; Pancreatic cancer in his brother; Prostate cancer in his father; brain tumor in his brother. OBJECTIVE: Visit Vitals BP 132/72 (BP Location: Left arm, Patient Position: Sitting, BP Cuff Size: Adult long) Pulse 71 Temp 97.1 F (Temporal) Resp 18 Ht 5' 6.25 Wt 179 lb 12.8 oz SpO2 99% BMI 28.80 kg/m Smoking Status Every Day BSA 1.95 m Physical Exam Vitals and nursing note reviewed. Constitutional: General: He is not in acute distress. Appearance: Normal appearance. He is not ill-appearing or toxic-appearing. HENT: Head: Normocephalic. Right Ear: Tympanic membrane, ear canal and external ear normal. Left Ear: Tympanic membrane, ear canal and external ear normal. Nose: Nose normal. No congestion or rhinorrhea. Mouth/Throat: Mouth: Mucous membranes are moist. Pharynx: Oropharynx is clear. No oropharyngeal exudate or posterior oropharyngeal erythema. Eyes: General: No scleral icterus. Extraocular Movements: Extraocular movements intact. Conjunctiva/sclera: Conjunctivae normal. Neck: Vascular: No carotid bruit. Cardiovascular: Rate and Rhythm: Normal rate and regular rhythm. Pulses: Normal pulses. Heart sounds: Normal heart sounds. Pulmonary: Effort: Pulmonary effort is normal. No respiratory distress. Breath sounds: Normal breath sounds. No stridor. No wheezing, rhonchi or rales. Abdominal: General: Bowel sounds are normal. There is no distension. Palpations: Abdomen is soft. There is no mass. Tenderness: There is no abdominal tenderness. There is no guarding or rebound. Hernia: No hernia is present. Musculoskeletal: Cervical back: Neck supple. Right lower leg: No edema. Left lower leg: No edema. Lymphadenopathy: Cervical: No cervical adenopathy. Skin: General: Skin is warm and dry. Capillary Refill: Capillary refill takes 2 to 3 seconds. Neurological: General: No focal deficit present. Mental Status: He is alert. Psychiatric: Mood and Affect: Mood normal. Behavior: Behavior normal. Thought Content: Thought content normal. Judgment: Judgment normal. ASSESSMENT AND PLAN: No follow-ups on file. Problem List Items Addressed This Visit Tobacco user The patient has been advised of the risks of continued smoking: stroke, AK, all forms of cancer, lung disease, and . Options for quitting smoking include: cold turkey, hypnosis, acupuncture, nicotine replacement meds (gum, lozenges, and patches), Buproprion, and Varenicline. At this time pt is encouraged to evaluate their goals for wanting to quit smoking, and reach out to provider when ready to start this process Asymptomatic bilateral carotid artery stenosis Cont with vascular Emphysema/COPD (CMS/HCC) Stable Primary hypertension (CMS/HCC) Stable no dose changes Relevant Medications amLODIPine (Norvasc) 10 MG tablet lisinopril 40 MG tablet Dysphagia, unspecified Will refer to ENT Relevant Orders Ambulatory referral to ENT Encounter for subsequent annual wellness visit (AWV) in Medicare patient - Primary Reviewed Ht/Wt/BMI Recommend eye exam yearly Recommend dental exams twice a year Balance work/leisure activities Exercises is recommended most days of the week (appropriate as chronic conditions allow) Follow up yearly and prn DONNA (iron deficiency anemia) Pt does report that he does have fatigue, is unable to tolerate oral iron supplement He would like to trial an IV iron infusion Associated Problem(s): Tobacco user The patient has been advised of the risks of continued smoking: stroke, AK, all forms of cancer, lung disease, and . Options for quitting smoking include: cold turkey, hypnosis, acupuncture, nicotine replacement meds (gum, lozenges, and patches), Buproprion, and Varenicline. At this time pt is encouraged to evaluate their goals for wanting to quit smoking, and reach out to provider when ready to start this process documented in this encounter [facility] 11-08-2023 History of Presen t illness Narrative Subjective Patient ID: Sunni Blackburn is a 83 y.o. male who presents for Mastoid Cleaning (6 month evelyne ) HPI This patient presents for recheck of his ears. He is status post canal wall down mastoidectomy on the right and tympanoplasty on the left. Does describe occasional popping of his left ear with improvement of hearing. Denies any pain. Does describe occasional watery drainage from his left ear. Review of Systems Patient denies any dizziness. Continues have decreased hearing in both ears. Has noticed some occasional watery drainage on the left. Denies any difficulties with nasal congestion. Does continue to smoke cigarettes. The rest of his review of systems is unchanged. Objective ENT Physical Exam General Examination: General overview: Normal, age-appropriate, no evidence of distress Head: Normocephalic, atraumatic Eyes: Pupils are equally round and reactive to light and accommodation, extraocular muscles are intact Ears: External ear architecture within normal limits, Ear canal and mastoid cavity are cleaned on the right side under binocular microscopy. Examination of the left ear does reveal evidence of some mild retraction. No evidence of infection. Nose: External nose unremarkable, nares patent, septum intact, There is evidence of smoking. Oral cavity: Mucosa moist, no evidence of ulcer, mass, or lesion Throat: Clear Neck/thyroid: Neck supple, full range of motion, no cervical lymphadenopathy, no evidence of thyromegaly Lymph nodes: No cervical lymphadenopathy Skin: Warm and dry, no evidence of suspicious lesions, no rash Heart: No jugular venous distention, point of maximal impulse normal Lungs: Good air movement, no audible wheezing, no shortness of breath Chest: Normal shape and expansion Abdomen: Normal, soft, nontender, nondistended Musculoskeletal: Cervical spine normal, full range of motion Extremities: No clubbing, cyanosis, or edema Peripheral pulses: 2+ radial, 2+ carotid Neurologic: Alert and oriented, cranial nerves 2-12 are grossly intact Psych: Alert and oriented, normal affect, no evidence of distress Assessment/Plan Diagnoses and all orders for this visit: History of mastoidectomy Comments: recheck in 6 months for mastoid cleaning Decreased hearing of both ears Comments: do not recommend any surgical intervention. Continue hearing aids Dysfunction of Eustachian tube, unspecified laterality Tobacco abuse Comments: patient is encouraged to quit smoking. documented in this encounter [facility] 10-19-2023 Evaluation note Diagnosis Onset Date Resolution Dermatitis acute October 18, 2 024 11:00am [facility] Work Phone: 1(265) 591-347608-22-2024 Telephone encounter Note* Telephone Encounter - Jerry Delvalle RN - 10/18/2023 11:41 AM EDT noted [facility]08-22-2024 Miscellaneous Notes* Telephone Encounter - Jerry Delvalle RN - 10/18/2023 11:41 AM EDT noted * Telephone Encounter - Isaías Bonilla - 10/18/2023 11:20 AM EDT Received outside medical records from [facility], discharge notes, in chart for review. [facility] Telephone encounter Note * Telephone Encounter - Isaías Bonilla - 10/18/2023 11:20 AM EDT Received outside medical records from [facility], discharge notes, in chart for review. [facility]2024 Telephone encounter Note* Telephone Encounter - Jerry Delvalle RN - 09/03/2023 2:49 PM EDT Printed for review & signature [facility]2024 Miscellaneous Notes* Telephone Encounter - Jerry Delvalle RN - 09/03/2023 2:49 PM EDT Printed for review & signature * Telephone Encounter - Danay Rayo - 09/03/2023 2:42 PM EDT [facility] PT Initial Exam report scanned to [facility] for review and completion [facility] * Telephone Encounter - Danay Rayo - 09/03/2023 2:42 PM EDT [facility] PT Initial Exam report scanned to [facility] for review and completion [facility]07-01-2024 Miscellaneous Notes* Telephone Encounter - Jermaine Granado RN - 08/27/2023 9:45 AM EDT Called and spoke with patient. Answered all questions. Patient stated he was unaware that PT was ordered for him. Wants to complete PT at [facility]. PT fax number [phone]. Faxed to number with confirmation fax. * Telephone Encounter - Danay Rayo - 08/27/2023 8:36 AM EDT Pt phoned asking if there were any restrictions he should follow. Please call and advise Pt phone [phone] [facility] Telephone encounter Note * Telephone Encounter - Jermaine Granado RN - 08/27/2023 9:45 AM EDT Called and spoke with patient. Answered all questions. Patient stated he was unaware that PT was ordered for him. Wants to complete PT at [facility]. PT fax number [phone]. Faxed to number with confirmation fax. [facility]07-01-2024 Telephone encounter Note* Telephone Encounter - Pau Danay - 08/27/2023 8:36 AM EDT Pt phoned asking if there were any restrictions he should follow. Please call and advise Pt phone [phone] [facility]06-27-2024 NoteHNO ID: [id number] Author: REBECA MARTINEZ MD Service: ? Author Type: Physician Type: Progress Notes Filed: 08/23/2023 11:42 Note Text: SPINE SURGERY FOLLOW UP This is an in-person visit. SERVICE DATE: 08/23/2023 SURGERY DATE: 08/06/2023 Sunni Blackburn is a pleasant 89-year-old gentleman is here in spine surgery clinic for 2 weeks postoperative follow-up visit. He underwent a C4-5, C5-6 anterior cervical discectomy, allograft and instrumented fusion on 08/06/2023. Prior to surgery he was complaining of shocklike sensation in bilateral upper extremity for a year. He also noticed diffuse sensory disturbance up to fingers. 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 Since surgery [...] independently reviewed with the patient ASSESSMENT/PLAN Sunni Blackburn is a pleasant 89-year-old gentleman is here in spine surgery clinic for 2 weeks postoperative follow-up visit. He underwent a C4-5, C5-6 anterior cervical discectomy, allograft and instrumented fusion on 08/06/2023. Prior to surgery he was complaining of shocklike sensation in bilateral upper extremity for a year. He also noticed diffuse sensory disturbance up to fingers. 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 Since surgery [...] SIGNATURE: Rebeca Martinez MD PATIENT NAME: Sunni Blackburn DATE: August 23, 2023 TIME: 11:32 AM PAGER:[facility]06-27-2024 History of Present illness Narrative* Rebeca Martinez MD - 08/23/2023 11:32 AM EDT SPINE SURGERY FOLLOW UP This is an in-person visit. SERVICE DATE: 08/23/2023 SURGERY DATE: 08/06/2023 Sunni Blackburn is a pleasant 89-year-old gentleman is here in spine surgery clinic for 2 weeks postoperative follow-up visit. He underwent a C4-5, C5-6 anterior cervical discectomy, allograft andinstrumented fusion on 08/06/2023. Prior to surgery he was complaining of shocklike sensation in bilateral upper extremity for a year. He also noticed diffuse sensory disturbance up to fingers. 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 Since surgery his shocklike sensation is significantly improved. Numbness is improving. Imbalance is improving. He notices swallowing difficulty after surgery which is significantly improved with thesteroid. He was also evaluated with a barium [...] independently reviewed with the patient ASSESSMENT/PLAN Sunni Blackburn is a pleasant 89-year-old gentleman is here in spine surgery clinic for 2 weeks postoperative follow-up visit. He underwent a C4-5, C5-6 anterior cervical discectomy, allograft andinstrumented fusion on 08/06/2023. Prior to surgery he was complaining of shocklike sensation in bilateral upper extremity for a year. He also noticed diffuse sensory disturbance up to fingers. 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 Since surgery his shocklike sensation is significantly improved. Numbness is improving. Imbalance is improving. He notices swallowing difficulty after surgery which is significantly improved with thesteroid. He was also evaluated with a barium swallow during postoperative time. Still has minimal swallowing problem for big pills. Denies drainage from the incision. Denies hoarseness of voice. Denies fever Examination showed well-healing anterior cervical incision, no signs of infection. No motor weakness. Stable gait. Discussed clinical finding. Recommended physical therapy, which is ordered. Recommended to increasehis activities as tolerated, avoid lifting weight more [...] SIGNATURE: Rebeca Martinez MD PATIENT NAME: Sunni Blackburn DATE: August 23, 2023 TIME: 11:32 AM PAGER: [facility] Telephone encounter Note * Telephone Encounter - Clovis Gunderson APRN.CNP - 07/13/2023 7:53 AM EDT Patient was seen 07/11 in [facility] regarding [...] 81 mg for surgery. Thank you Clovis VELASCO [facility]05-17-2024 Miscellaneous Notes* Telephone Encounter - Clovis Gunderson APRN.CNP - 07/13/2023 7:53 AM EDT Patient was seen 07/11 in [facility] regarding [...] 81 mg for surgery. Thank you Clovis VEALSCO documented in this encounterPro[facility]05-16-2024 History and physical note * Clovis Gunderson APRN.CNP - 07/12/2023 11:00 AM EDT Images from the original note were not included. HISTORY AND PHYSICAL EXAMINATION SERVICE DATE: 07/12/2023 SERVICE TIME: 10:10 AM PRIMARY CARE PHYSICIAN: No primary care provider on file. REASON FOR VISIT: Sunni Blackburn is a 83 year old male who [...] arterial Dopplers. Continue with antiplatelets therapy andstatins. Essential (primary) hypertension Assessment: Stable on medication [...] arterial Dopplers. Continue with antiplatelets therapy andstatins. [place] Activity Status Index: METS: Walk indoors, [...] have a large neck STOP-Bang Score: 3 [id number] Score: Age: >=75 Sex: male CHF history: No Hypertension history: Yes Stroke/TIA/thromboembolism history: No Vascular disease history: Yes Diabetes history: No [id number] Score: 4 ARISCAT Score: Age: >80 Preoperative [...] Duran present: no Lip Bite Test: II Microretrognathia/Micronagthia/Recessed Chin: No DENTAL Dentures, upper: complete. Dentures, [...] Status: Future Standing Expiration Date: 10/11/2023 vit A,C,Y-Pvwk-Whuyuq (PRESERVISION AREDS) 2,148 mcg-113 mg-45 mg-17.4mg tab [...] over bilateral hand. 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 Noticed minimal imbalance [...] 1024 Medication Sig Last Dose Taking vit A,C,C-Jvsi-Tgmusd (PRESERVISION AREDS) 2,148 mcg-113 mg-45 mg-17.4mg tab Take 1 tablet by mouthdaily with breakfast. Yes amLODIPine (NORVASC) 10 mg tablet Take 10 mg by mouth once daily. Yes albuterol HFA (PROVENTIL HFA, VENTOLIN HFA) 90 mcg/actuation inhaler inhale 2 puffs by mouth and INTO THE LUNGS every 6 hours if needed for wheezing Yes aspirin, enteric coated (ASPIRIN, ENTERIC COATED) 81 mg EC tablet Take 81 mg by mouth. Yes ykveouqdcg-rinnfxtj-oevxnxhxtf (BREZTRI AEROSPHERE) 160-9-4.8 mcg/actuation HFA aerosol inhaler [...] COVID-19 original vaccine, age 12+ yr, monovalent (PFIZER- BIONTECH - LOUISE TOP) 02/12/2021 Imm Admin: COVID-19 original vaccine, age 12+ yr, monovalent (PFIZER- BIONTECH - PURPLE TOP) 05/13/2020 Imm Admin: COVID-19 original vaccine, age 12+ yr, monovalent (PFIZER- BIONTECH - PURPLE TOP) Only the first 5 [...] fevers. Neuro: No history of TIA's, stroke, MERCHANDISE PRESENTATION MANAGER tumor, impaired sensorium, hemiplegia, paraplegia or quadraplegia. [...] LeftCarotid Enterectomy no history of angina, CHF, [place], cardiac surgery or stents. Denies rest pain, [...] Last Resulted: 08/05/20 1:51 PM Received From: [employer] Result Received: 05/17/23 9:43 AM Most recent labs All in Epic Instructions Given to Patient: Instructions located in the after visit summary. Patient given verbal and written preop instructions and voices comprehension and compliance. SIGNATURE: Clovis Gunderson APRN.CNP PATIENT NAME: Sunni Blackburn DATE: 07/12/2023 TIME: 11:06 AM [facility]05-16-2024 History and physical note* Clovis Gunderson APRN.CNP - 07/12/2023 11:00 AM EDT Images from the original note were not included. HISTORY AND PHYSICAL EXAMINATION SERVICE DATE: 07/12/2023 SERVICE TIME: 10:10 AM PRIMARY CARE PHYSICIAN: No primary care provider on file. REASON FOR VISIT: Sunni Blackburn is a 83 year old male who [...] arterial Dopplers. Continue with antiplatelets therapy andstatins. Essential (primary) hypertension Assessment: Stable on medication [...] arterial Dopplers. Continue with antiplatelets therapy andstatins. Barragan Activity Status Index: METS: Walk indoors, [...] have a large neck STOP-Bang Score: 3 [id number] Score: Age: >=75 Sex: male CHF history: No Hypertension history: Yes Stroke/TIA/thromboembolism history: No Vascular disease history: Yes Diabetes history: No [id number] Score: 4 ARISCAT Score: Age: >80 Preoperative [...] Duran present: no Lip Bite Test: II Microretrognathia/Micronagthia/Recessed Chin: No DENTAL Dentures, upper: complete. Dentures, [...] Status: Future Standing Expiration Date: 10/11/2023 vit A,C,U-Jbqu-Cajscb (PRESERVISION AREDS) 2,148 mcg-113 mg-45 mg-17.4mg tab [...] over bilateral hand. 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 Noticed minimal imbalance [...] 1024 Medication Sig Last Dose Taking vit A,C,R-Toia-Gisqae (PRESERVISION AREDS) 2,148 mcg-113 mg-45 mg-17.4mg tab Take 1 tablet by mouthdaily with breakfast. Yes amLODIPine (NORVASC) 10 mg tablet Take 10 mg by mouth once daily. Yes albuterol HFA (PROVENTIL HFA, VENTOLIN HFA) 90 mcg/actuation inhaler inhale 2 puffs by mouth and INTO THE LUNGS every 6 hours if needed for wheezing Yes aspirin, enteric coated (ASPIRIN, ENTERIC COATED) 81 mg EC tablet Take 81 mg by mouth. Yes jbuoqahnnc-abeqcrxq-xmpkdkdwkf (BREZTRI AEROSPHERE) 160-9-4.8 mcg/actuation HFA aerosol inhaler [...] COVID-19 original vaccine, age 12+ yr, monovalent (PFIZER- BIONTECH - LOUISE TOP) 02/12/2021 Imm Admin: COVID-19 original vaccine, age 12+ yr, monovalent (PFIZER- BIONTECH - PURPLE TOP) 05/13/2020 Imm Admin: COVID-19 original vaccine, age 12+ yr, monovalent (PFIZER- BIONTECH - PURPLE TOP) Only the first 5 [...] fevers. Neuro: No history of TIA's, stroke, MERCHANDISE PRESENTATION MANAGER tumor, impaired sensorium, hemiplegia, paraplegia or quadraplegia. [...] LeftCarotid Enterectomy no history of angina, CHF, AK, cardiac surgery or stents. Denies rest pain, [...] Last Resulted: 08/05/20 1:51 PM Received From: [employer] Result Received: 05/17/23 9:43 AM Most recent labs All in Epic Instructions Given to Patient: Instructions located in the after visit summary. Patient given verbal and written preop instructions and voices comprehension and compliance. SIGNATURE: Clovis Gunderson APRN.CNP PATIENT NAME: Sunni Blackburn DATE: 07/12/2023 TIME: 11:06 AM [facility] Instructions* Patient Instructions* Clovis Gunderson APRN.CNP - 07/04/2023 12:47 PM EDT PATIENT PREOPERATIVE INSTRUCTIONS Berny Martinez* has scheduled you for your procedure at this surgery center: [facility]: [phone] --[address] [place] [address]. On your scheduled day of surgery, please [...] This will help to spread the ointment throughoutthe inside of the nostrils. 3. If you develop a rash, itching or irritation of the nostrils please discontinue using and notifyyour surgeon. 4. Do not use any other [...] Procedures: - YOU MUST HAVE A RESPONSIBLE TV PRODUCTION ASSISTANT TAKE YOU HOME. A MEDICAL RECORD TRANSCRIBER OR CHIEF ENGINEER PRODUCTION CANNOT BE MADE A RESPONSIBLE TV PRODUCTION ASSISTANT. - We recommend that a responsible person stays with you overnight to take care of you. - You cannot stay in a hotel alone after outpatient surgery. You will not be permitted to have yoursurgery, if you do not have someone to take care of you. If you already have an Advance Directive, please fax a copy to [phone] or email to for it to be added to your chart. If you do not have an Advance Directive, you can find the appropriate form and more information at [email or web address]. We recommend that youcomplete the Advance Directive form found on the website and bring it with you the day of your surgery. It can be witnessed and scanned into your chart that day. Clovis VELASCO documented in this encounter[facility]04[facility] Telephone encounter Note * Telephone Encounter - Liliam Clayton - 06/20/2023 9:49 AM EDT Received Ultrasound of the Carotid report by fax from [facility]. Scanned fax to chart for review. [facility]04-24-2024 Miscellaneous Notes* Telephone Encounter - Liliam Clayton - 06/20/2023 9:49 AM EDT Received Ultrasound of the Carotid report by fax from [facility]. Scanned fax to chart for review. documented in this encounterProtestant Hospital04-23-2024 History of Present illness Narrative* Mitra Pal RT(R) - 06/19/2023 4:20 PM EDT Radiology Service Progress Note PATIENT NAME: Sunni Blackburn DATE OF SERVICE: June 19, 2023 TIME: 10:16 AM PATIENT IDENTITY VERIFICATION COMPLETED USING TWO (2) IDENTIFIERS: Name and Date of confirmedby patient verbally and Name and Date of confirmed by identification band. FALL SCREENING: Has the patient had 2 falls in the last year or 1 fall with injury or currently using an Ambulatory Assistive Device (Walker, Cane, Wheelchair, Crutches, etc.)? Yes, Patient High Riskfor Falls What interventions were put in place to prevent falls during this visit? Yellow Falls Risk Wristband Applied PATIENT GENDER DATA: Male PATIENT RELEVANT IMPLANT DATA REVIEWED: Not Applicable PATIENT PRESENTS WITH AN IMPLANTABLE OR ATTACHED MOSAIC FLOOR LAYER: No RADIOLOGY DEPARTMENT: General X-ray: Exam(s) Completed: Spine X-Ray(s): Cervical AP / LAT / FLEX-EXT PERIPHERAL IV DATA: Not applicable SIGNED BY: RT Jacob(Allison) June 19, 2023 10:16 AM documented in this encounterProtestant Hospital04-23-2024 NoteHNO ID: [id number] Author: MITRA PAL RT(R) Service: ? Author Type: Technologist Type: Progress Notes Filed: 06/19/2023 10:16 Note Text: Radiology Service Progress Note PATIENT NAME: Sunni Blackburn DATE OF SERVICE: June 19, 2023 TIME: [...] PATIENT PRESENTS WITH AN IMPLANTABLE OR ATTACHED MOSAIC FLOOR LAYER: No RADIOLOGY DEPARTMENT: General X-ray: Exam(s) Completed: Spine X-Ray(s): Cervical AP / LAT / FLEX-EXT PERIPHERAL IV DATA: Not applicable SIGNED BY: RT Jacob(R) June 19, 2023 10:16 [facility]04-23-2024 NoteHNO ID: [id number] Author: JERRY DELVALLE RN Service: ? Author Type: Registered Nurse Type: Progress Notes Filed: 06/19/2023 10:26 Note Text: Neuro SPINE CARE COORDINATION PRE-OP VISIT Met with patient in office for pre op education. Given both written and verbal instructions re : Skin prep, wound care, pain management and post op restrictions. Provided to patient: [facility] Surgery Guide, skin prep supplies, Spine Surgery Pre/post op education packet. Yes Reviewed with patient to report to desk for surgery ? Yes. Reviewed with the patient to call [phone] the day before to get surgery report [...] received carotid ultrasound. Copy to onbase. Jerry Delvalle, [facility]04-23-2024 History of Present illness Narrative* Jerry Delvalle, RN - 06/19/2023 9:49 AM EDT Neuro SPINE CARE COORDINATION PRE-OP VISIT Met with patient in office for pre op education. Given both written and verbal instructions re : Skin prep, wound care, pain management and post op restrictions. Provided to patient: [facility] Surgery Guide, skin prep supplies, Spine Surgery Pre/post op education packet. Yes Reviewed with patient to report to desk for surgery ? Yes. Reviewed with the patient to call [phone] the day before to get surgery report [...] Post -op Support yes Spoke to Dr Nweton office(vascular) received carotid ultrasound. Copy to onbase. Jerry Delvalle RN * Rebeca Martinez MD - 06/19/2023 8:50 AM EDT SPINE SURGERY NEW PATIENT This is an in-person visit. PCP: No primary care provider on file. REFERRING PROVIDER: Ms.Pacenta STEPHENS SUBJECTIVE CHIEF COMPLAINT: Shocklike sensation in bilateral upper extremity Walking difficulty 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 Mr. Blackburn is a pleasant 82-year-old gentleman is in surgery clinic with a history of shocklike sensation in bilateral upper extremity for the past 1 year. Shocklike sensation happen sporadically.Occasionally associated with neck movements. Sensation radiates up to all fingers. Mild posterior neck soreness. Denies sharp pain in upper extremity. He also noticed numbness over bilateral hand. 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 Noticed minimal imbalance while walking.Also complains of diffuse lower extremity subjective weakness. [...] DISTRIBUTION: Not applicable AMBULATORY STATUS: [facility] ANTIPLATELET OR ANTICOAGULATION STATUS: Aspirin 81 mg [...] EC tablet Take 81 mg by mouth. ssvesxjgud-uclzdolq-zjfokwvehb (BREZTRI AEROSPHERE) 160-9-4.8 mcg/actuation HFA aerosol inhaler [...] in all muscle groups. Except right hand animation artist weakness SENSORY: Normal sensory exam GAIT: Stable [...] of the right neural foramen ASSESSMENT/PLAN Mr. Blackburn is a pleasant 82-year-old gentleman is in surgery clinic with a history of shocklike sensation in bilateral upper extremity for the past 1 year. Shocklike sensation happen sporadically.Occasionally associated with neck movements. Sensation radiates up to all fingers. Mild posterior neck soreness. Denies sharp pain in upper extremity. He also noticed numbness over bilateral hand. 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 Noticed minimal imbalance while walking.Also complains of diffuse lower extremity subjective weakness. Denies frequent falls. Denies bowel or bladder dysfunction. Known hypertension. On aspirin 81 mg. Underwent left-sided carotid endarterectomy in the past. He is following with vascular surgery. Not taking regular pain medications. No recent cervical epidural injections No previous spine surgeries Neurological examination showed stable gait, tandem walk is a difficulty. Right hand animation artist is weak. No sensory deficit. Guevara's present bilaterally. Ill sustained ankle clonus is present. CT cervical spine done on May 2022 showed loss of disc height at the C4-5, C5- 6, C6-7 levels withposterior osteophyte. MRI cervical spine done on 05/18/2023 showed loss of disc height at the C4-5, C5-6 level with posterior osteophyte/disc herniation causing significant compression of the cord. Mye lomalacia change at C4-5, C5-6 levels. MRI lumbar spine showed degenerative changes without significant canal stenosis. Varying degree of foraminal stenosis. Discussed clinical, imaging finding. Showed images and explained detail. Discussed treatment options for cervical spondylosis with myelopathy which includes continued conservative treatment with neckexercise, physical therapy, pain medication, membrane stabilizers, epidural injection and surgical i ntervention. Considering myelopathy, I think surgery is a [...] surgical intervention through a posterior approach. Sunni Blackburn is clinically indicated and wishes to pursue C4-5, C5-6 anterior cervical discectomy/C5 corpectomy The risks, benefits, and anticipated outcomes of the procedure/treatment/test, the alternatives to the procedure/treatment/test and their risks and benefits, and the roles and tasks of the personnel to be involved were discussed with the patient or the patient s personal medical detail representative. The patient has elected to schedule [...] SIGNATURE: Rebeca Martinez MD PATIENT NAME: Sunni Blackburn DATE: June 19, 2023 TIME: 8:50 AM PAGER: documented in this encounterProtestant Hospital04-23-2024 NoteHNO ID: [id number] Author: REBECA MARTINEZ MD Service: ? Author Type: Physician Type: Progress Notes Filed: 06/19/2023 09:48 Note Text: SPINE SURGERY NEW PATIENT This is an in-person visit. PCP: No primary care provider on file. REFERRING PROVIDER: Ms.Pacenta STEPHENS SUBJECTIVE CHIEF COMPLAINT: Shocklike sensation in bilateral upper extremity Walking difficulty 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 Mr. Blackburn is a pleasant 82-year-old gentleman is in surgery clinic with a history of shocklike sensation in bilateral upper extremity for the past 1 year. Shocklike sensation happen sporadically. Occasionally associated with neck movements. Sensation radiates up to all fingers. Mild posterior neck soreness. Denies sharp pain in upper extremity. He also noticed numbness over bilateral hand. 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 Noticed minimal imbalance [...] EC tablet Take 81 mg by mouth. vbjjeqokzb-iowucvjw-jgacnqumne (BREZTRI AEROSPHERE) 160-9-4.8 mcg/actuation HFA aerosol inhaler [...] extremities dry, in (more content not included)... [id number] NoteHNO ID: [id number] Author: NIKKIE NG APRN.GRAVEL INSPECTOR Service: ? Author Type: Nurse Practitioner Type: Progress Notes Filed: 05/23/2023 16:15 Note Text: Per Triage: Sunni Blackburn is a 82 year old male that [...] reported symptoms. Patient should hand carry imaging disc.[facility]03-21-2024 NoteHNO ID: [id number] Author: ?, ?, ? Service: ? Author Type: ? Type: Progress Notes Filed: 05/23/2023 16:15 Note Text: Patient name: Sunni Blackburn Are you being referred by a Lane for Spine Health Provider or Pain Management Provider at [facility]? No If answer is YES [...] where the MRI/CT/myelogram was completed: [place] [address] MRI/CT/myelogram viewable in Epic: No If not, please provide [phone] to fax in imaging reports for review. Also, please inform patient to hand carry imaging disc to appointment. XR (spine) within 12 months: Yes If YES,? please ask for the name/address of the facility where the XR was completed: [facility] [address] [place] [address] Dr. Ramirez's patients: Have you had previous EMG/Nerve Conduction Study, Ultrasound, or MRI for these same symptoms? If YES,? 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 Intervertebral cervical disc disorder with myelopathy, cervical region Cervical cord myelomalacia (HCC) Other myelopathy 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, cervical region documented [facility]* Diagnosis Pre-op testing- Primary Preoperative examination, unspecified 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, 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, cervical region documented [facility] this encounter [facility]* Diagnosis 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, 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, cervical region [facility]* Diagnosis Pre-op examination- Primary Preoperative examination, [...] * Assessment & Plan Note - Clovis Gunderson APRN.CNP - 07/12/2023 10:34 AM EDTAssociated Problem(s): [...] * Assessment & Plan Note - Clovis Gunderson APRN.CNP - 07/12/2023 10:32 AM EDTAssociated Problem(s): COPD exacerbation (HCC) Assessment: stable following with PCP Brunilda ocampo, gave him a spacer to trial To use inhaler morning of surgery Per note on 06/21/2023 * Assessment & Plan Note - Clovis Gunderson APRN.CNP - 07/12/2023 10:30 AM EDTAssociated Problem(s): Anemia Assessment: stable to get updated labs * Assessment & Plan Note - Clovis Gunderson APRN.CNP - 07/12/2023 10:30 AM EDTAssociated Problem(s): [...] * Assessment & Plan Note - Clovis Gunderson APRN.CNP - 07/12/2023 10:30 AM EDTAssociated Problem(s): Tobacco user Assessment: Current Smoker 0.5 ppd x 50 years * Assessment & Plan Note - Clovis Gunderson APRN.CNP - 07/12/2023 10:17 AM EDTAssociated Problem(s): Essential (primary) hypertension Assessment: Stable on medication Today BP: 156/73 Amlodipine was recently increased by PCP To take medication morning of surgery documented in this [facility]* Diagnosis Cervical vertebral fusion- Primary Other unspecified back disorder documented in this encounter [facility] healthcare noteNo assessment information availableWadsworth-Rittman Hospital Work Phone: Evaluation note* Diagnosis COPD exacerbation (CMS/HCC)- Primary Obstructive chronic bronchitis with exacerbation Centrilobular emphysema (CMS/HCC) Cervical spinal stenosis- Primary Spinal stenosis in cervical region Centrilobular emphysema (CMS/HCC) Tobacco user Tobacco use disorder Spinal stenosis at L4-L5 level Chronic rhinitis Primary hypertension (CMS/HCC)- Primary Unspecified essential hypertension Cervical cord myelomalacia (CMS/HCC) Cervical spinal stenosis Spinal stenosis in cervical region Numbness and tingling Disturbance of skin sensation Pulmonary emphysema, unspecified emphysema type (CMS/HCC) BMI 29.0-29.9,adult Tobacco user Tobacco use disorder COPD exacerbation (CMS/HCC)- Primary Obstructive chronic bronchitis with exacerbation Pulmonary emphysema, unspecified emphysema type (CMS/HCC) Tobacco user Tobacco use disorder BMI 29.0-29.9,adult COPD exacerbation (CMS/HCC)- Primary Obstructive chronic bronchitis with exacerbation BMI 29.0-29.9,adult Tobacco user Tobacco use disorder Primary hypertension (CMS/HCC)- Primary Unspecified essential hypertension Anemia, unspecified type [facility]* Diagnosis COPD exacerbation (CMS/HCC)- Primary Obstructive chronic bronchitis with exacerbation Centrilobular emphysema (CMS/HCC) Cervical spinal stenosis- Primary Spinal stenosis in cervical region Centrilobular emphysema (CMS/HCC) Tobacco user Tobacco use disorder Spinal stenosis at L4-L5 level Chronic rhinitis Primary hypertension (CMS/HCC)- Primary Unspecified essential hypertension Cervical cord myelomalacia (CMS/HCC) Cervical spinal stenosis Spinal stenosis in cervical region Numbness and tingling Disturbance of skin sensation Pulmonary emphysema, unspecified emphysema type (CMS/HCC) BMI 29.0-29.9,adult Tobacco user Tobacco use disorder COPD exacerbation ([facility]/HCC)- Primary Obstructive chronic bronchitis with exacerbation Pulmonary emphysema, unspecified emphysema type (CMS/HCC) Tobacco user Tobacco use disorder BMI 29.0-29.9,adult COPD exacerbation (CMS/HCC)- Primary Obstructive chronic bronchitis with exacerbation BMI 29.0-29.9,adult Tobacco user Tobacco use disorder Encounter for subsequent annual wellness visit (AWV) in Medicare patient- Primary Tobacco user Tobacco use disorder Primary hypertension ([facility]) Unspecified essential hypertension Pulmonary emphysema, unspecified emphysema type (CMS/HCC) Asymptomatic bilateral carotid artery stenosis Dysphagia, unspecified type Iron deficiency anemia, unspecified iron deficiency anemia type [facility]* Diagnosis COPD exacerbation (CMS/HCC)- Primary Obstructive chronic bronchitis with exacerbation Centrilobular emphysema (CMS/HCC) Cervical spinal stenosis- Primary Spinal stenosis in cervical region Centrilobular emphysema (CMS/HCC) Tobacco user Tobacco use disorder Spinal stenosis at L4-L5 level Chronic rhinitis Primary hypertension (CMS/HCC)- Primary Unspecified essential hypertension Cervical cord myelomalacia (CMS/HCC) Cervical spinal stenosis Spinal stenosis in cervical region Numbness and tingling Disturbance of skin sensation Pulmonary emphysema, unspecified emphysema type (CMS/HCC) BMI 29.0-29.9,adult Tobacco user Tobacco use disorder COPD exacerbation (CMS/HCC)- Primary Obstructive chronic bronchitis with exacerbation Pulmonary emphysema, unspecified emphysema type (CMS/HCC) Tobacco user Tobacco use disorder BMI 29.0-29.9,adult COPD exacerbation ([facility])- Primary Obstructive chronic bronchitis with exacerbation BMI 29.0-29.9,adult Tobacco user Tobacco use disorder Encounter for subsequent annual wellness visit (AWV) in Medicare patient- Primary Tobacco user Tobacco use disorder Primary hypertension ([facility]) Unspecified essential hypertension Pulmonary emphysema, unspecified emphysema type ([facility]) Asymptomatic bilateral carotid artery stenosis Dysphagia, unspecified type Iron deficiency anemia, unspecified iron deficiency anemia type Dysphagia, unspecified type- Primary History of mastoidectomy Other postprocedural status documented in [facility] encounter [facility]* Diagnosis COPD exacerbation ([facility])- Primary Obstructive chronic bronchitis with exacerbation Centrilobular emphysema ([facility]) Cervical spinal stenosis- Primary Spinal stenosis in cervical region Centrilobular emphysema ([facility]) Tobacco user Tobacco use disorder Spinal stenosis at L4-L5 level Chronic rhinitis Primary hypertension ([facility])- Primary Unspecified essential hypertension Cervical cord myelomalacia ([facility]) Cervical spinal stenosis Spinal stenosis in cervical region Numbness and tingling Disturbance of skin sensation Pulmonary emphysema, unspecified emphysema type ([facility]/HCC) BMI 29.0-29.9,adult Tobacco user Tobacco use disorder COPD exacerbation ([facility])- Primary Obstructive chronic bronchitis with exacerbation Pulmonary emphysema, unspecified emphysema type ([facility]) Tobacco user Tobacco use disorder BMI 29.0-29.9,adult COPD exacerbation ([facility])- Primary Obstructive chronic bronchitis with exacerbation BMI 29.0-29.9,adult Tobacco user Tobacco use disorder Encounter for subsequent annual wellness visit (AWV) in Medicare patient- Primary Tobacco user Tobacco use disorder Primary hypertension ([facility]) Unspecified essential hypertension Pulmonary emphysema, unspecified emphysema type ([facility] Asymptomatic bilateral carotid artery stenosis Dysphagia, unspecified type Iron deficiency anemia, unspecified iron deficiency anemia type Gastroesophageal reflux disease with esophagitis, unspecified whether hemorrhage- Primary Dysphagia, unspecified type documented in this encounter [facility] HealthcareEvaluation note* Diagnosis Peripheral vascular disease ([facility])- Primary Unspecified peripheral vascular disease Bilateral carotid artery stenosis Occlusion and stenosis of carotid artery without mention of cerebral infarction Cigarette smoker Tobacco use disorder documented in this [facility] Diagnosis History of mastoidectomy- Primary Other postprocedural status Decreased hearing of both ears Dysfunction of Eustachian tube, unspecified laterality Tobacco abuse Tobacco use disorder documented in this encounter [facility] Diagnostic Procedure Only (Routine) - Closed Specialty Diagnoses / Procedures Referred By Contac t Referred To Contact XR IMAGING Diagnoses Cervical disc disorder with myelopathy of mid-cervical region Procedures XR CERV OTHER 4V AP/LAT/FLX/EXT RADEX SPINE CERVICAL 4 [place] [address] [place] [address] [address] Referral ID Status Reason Start Date Expiration Date V isits Requested Visits Authorized [id number] Closed Auto-Generate d Referral 06/19/2023 07/18/2024 1 1 [facility] for referral (narrative)* Outpatient Procedure (Routine) - [...] ROUTINE ECG W/LEAST 12 LDS W/I&R Clovis Gunderson TICKET TAKER FERRYBOAT.GRAVEL INSPECTOR [address] [place] [address] [facility] [address] [place] [address] Referral ID Status Reason Start Date Expiration Date Visits Requested Visits Authorized [id number] Pending Review Auto-Generat ed Referral 07/12/2023 07/11/2024 1 1 T [facility] for referral (narrative)* Diagnostic Procedure Only (Routine) - Authorized Specialty Diagnoses / Procedures Referred By Contac t Referred To Contact XR IMAGING Diagnoses Cervical vertebral fusion Procedures XR CERV GENERAL 2V AP/LAT RADEX SPINE CERVICAL 2 OR 3 [place] [address] [place] [id number] Xr Imaging [id number] Referral ID Status Reason Start Date Expiration Date Visits Requested Visits Authorized [id number] Authorized Auto-Generat ed Referral 08/23/2023 09/21/2024 1 1 * Physical Therapy (Routine) - Authorized Specialty Diagnoses / Procedures Referred By Ayanna t Referred To Contact [facility] Diagnoses Cervical vertebral fusion Procedures CONSULT TO PHYSICAL THERAPY PHYSICAL THERAPY EVALUATION HIGH COMPLEX [address] [place] [address] [place] [id number] [facility] [place] [address] [place] [id number] Referral ID Status Reason Start Date Expiration Date Visits Requested Visits Authorized [id number] Authorized PCP Requested Referral Auto-Generate d Referral 08/23/2023 08/22/2024 99 99 [facility] for visit Narrative* Diagnostic Procedure Only (Routine) - Closed Specialty Diagnoses / Procedures Referred By Ayanna t Referred To Contact XR IMAGING Diagnoses Cervical disc disorder with myelopathy of mid-cervical region Procedures XR CERV OTHER 4V AP/LAT/FLX/EXT RADEX SPINE CERVICAL 4 [place] [address] [place] [id number] Xr Imaging [id number] Referral ID Status Reason Start Date Expiration Date V isits Requested Visits Authorized [id number] Closed Auto-Generate d Referral 06/19/2023 07/18/2024 1 1 [facility] Summary Purpose Family History No Family History Records Found Relationship Condition Age at Onset Recorded Date/T kiarra father Unknown Heart disease Unknown mother Unknown Advance Directives No Advanced Directives Records Found Advance Directive Response Recorded Date/ Time Advance Directives No October 19, 2023 10:58am Advance Directive Response Recorded Date/ Time Advance Directives No December 10:44am Reason for Referral Specialty Diagnoses / Procedures Referred By Contac t Referred To Contact Diagnoses Pre-op testing Procedures REFER TO PACC - PRE ANESTHESIA CONSULTATION CLINIC OFFICE/OUTPATIENT [facility] 60 MINUTES Rufina Wiggins PA-C [phone] [place] [address] Referral ID Status Reason Start Date Expiration Date Visits Requested Visits Authorized [id number] Authorized PCP Requested Referral 06/19/2023 06/18/2024 1 1 Chief Complaint and Reason for Visit Chief Complaint Skin irritation Chief Complaint Admit Date Skin irritation October 19, 2023 11 :00am r13.10 January 10, 2024 8:25am Reason for Visit Admit Date Dermatitis October 19, 2023 11 :00am Additional Source Comments (unrecognized sect ion and content) No Status Records FoundNo Status Records FoundNo Status Records FoundNo Status Records FoundNo Status Records FoundNo Status Records Found INFORMATION SOURCE (unrecogn ized section and content) DATE CREATED AUTHOR 08/22/2017 [facility] DATE CREATED AUTHOR AUTHOR'S ORGANIZ ATION 08/04/2022 [facility] DATE CREATED AUTHOR AUTHOR'S ORGANIZ ATION 08/24/2023 [facility] DATE CREATED AUTHOR AUTHOR'S ORGANIZ ATION 10/20/2023 [facility] DATE CREATED AUTHOR AUTHOR'S ORGANIZ ATION 01/15/2024 [facility] DATE CREATED AUTHOR AUTHOR'S ORGANIZ ATION 02/11/2024 [facility] EPIC Care Teams (unrecognized sec tion and content) Science Education Professor Relationship Specialty Start Date End Date 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 NP [address] [place] [address] Nurse Practitioner Family Medicine 02/26/22 Science Education Professor Relationship Specialty Start Date End Date 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, GRAVEL INSPECTOR [address] [place] [address] Family Medicine 05/17/23 Science Education Professor Relationship Specialty Start Date End Date 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 CNP [address] [place] [address] Family Medicine 05/17/23 Science Education Professor Relationship Specialty Start Date End Date 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 GRAVEL INSPECTOR [address] [place] [address] Family Medicine 05/17/23 Science Education Professor Relationship Specialty Start Date End Date 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 CNP [address] [place] [address] PCP - General Family Medicine 07/12/23 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 GRAVEL INSPECTOR [address] [place] [address] Family Medicine 05/17/23 Science Education Professor Relationship Specialty Start Date End Date 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 GRAVEL INSPECTOR [address] [place] [address] PCP - General Family Medicine 07/12/23 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, GRAVEL INSPECTOR [address] [place] [address] Family Medicine 05/17/23 Science Education Professor Relationship Specialty Start Date End Date 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, GRAVEL INSPECTOR [address] [place] [address] PCP - General Family Medicine 07/12/23 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, GRAVEL INSPECTOR [address] [place] [address] Family Medicine 05/17/23 Science Education Professor Relationship Specialty Start Date End Date 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, GRAVEL INSPECTOR [address] [place] [address] PCP - General Family Medicine 07/12/23 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, GRAVEL INSPECTOR [address] [place] [address] Family Medicine 05/17/23 Science Education Professor Relationship Specialty Start Date End Date 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, GRAVEL INSPECTOR [address] [place] [address] PCP - General Family Medicine 07/12/23 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, GRAVEL INSPECTOR [address] [place] [address] Family Medicine 05/17/23 Science Education Professor Relationship Specialty Start Date End Date 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, GRAVEL INSPECTOR [address] [place] [address] PCP - General Family Medicine 07/12/23 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, GRAVEL INSPECTOR [address] [place] [address] Family Medicine 05/17/23 Team Status: Active Member Role Status Dates Nannette Long APRN INFORMATION SYSTEMS COORDINATOR-C Primary Care Provider Active Team Status: Inactive Member Role Status Dates Nannette Long APRN INFORMATION SYSTEMS COORDINATOR-C Primary Care Provider Active Start: October 19, 2023 End: October 19, 2023 Jyoti Mendoza , TICKET TAKER FERRYBOAT Attending Provider Active Start: October 19, 2023 End: October 19, 2023 Science Education Professor Relationship Specialty Start Date End Date Víctor Chadwick MD [address] [place] [address] PCP - General Family Medicine 04/16/23 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 NP [address] [place] [address] Nurse Practitioner Family Medicine 02/26/22 Jovany Ovalle DO [address] [place] [address] Otolaryngology 11/08/23 Science Education Professor Relationship Specialty Start Date End Date Víctor Chadwick MD [address] [place] [address] PCP - General Family Medicine 04/16/23 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 NP [address] [place] [address] Nurse Practitioner Family Medicine 02/26/22 Jovany Ovalle DO [address] [place] [address] Otolaryngology 11/08/23 Science Education Professor Relationship Specialty Start Date End Date Víctor Chadwick MD [address] [place] [address] PCP - General Family Medicine 04/16/23 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 NP [address] [place] [address] Nurse Practitioner Family Medicine 02/26/22 Jovany Ovalle DO [address] [place] [address] Otolaryngology 11/08/23 Science Education Professor Relationship Specialty Start Date End Date Víctor Chadwick MD [address] [place] [address] PCP - General Family Medicine 04/16/23 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 NP [address] [place] [address] Nurse Practitioner Family Medicine 02/26/22 Jovany Ovalle DO [address] [place] [address] Otolaryngology 11/08/23 Science Education Professor Relationship Specialty Start Date End Date Víctor Chadwick MD [address] [place] [address] PCP - General Family Medicine 12/27/23 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 NP [address] [place] [address] Nurse Practitioner Family Medicine 02/26/22 Jovany Ovalle DO [address] [place] [address] Otolaryngology 11/08/23 Science Education Professor Relationship Specialty Start Date End Date Víctor Chadwick MD [address] [place] [address] PCP - General Family Medicine 12/27/23 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 NP [address] [place] [address] Nurse Practitioner Family Medicine 02/26/22 Jovany Ovalle DO [address] [place] [address] Otolaryngology 11/08/23 Team Status: Active Member Role Status Dates 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 Primary Care Provider Active Team Status: Inactive Member Role Status Dates Jovany Ovalle DO Attending Provider Active S tart: January 10, 2024 End: January 10, 2024 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 Primary Care Provider Active Sta rt: January 10, 2024 End: January 10, 2024 Science Education Professor Relationship Specialty Start Date End Date Víctor Chadwick MD [address] [place] [address] PCP - General Family Medicine 12/27/23 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 NP [address] [place] [address] Nurse Practitioner Family Medicine 02/26/22 Jovany Ovalle DO [address] [place] [address] Otolaryngology 11/08/23 Science Education Professor Relationship Specialty Start Date End Date Víctor Chadwick MD [address] [place] [address] PCP - General Family Medicine 12/27/23 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, SHANNON [address] [place] [address] Nurse Practitioner Family Medicine 02/26/22 Jovany Ovalle DO [address] [place] [address] Otolaryngology 11/08/23 Science Education Professor Relationship Specialty Start Date End Date Nannette Long, TICKET TAKER FERRYBOAT-GRAVEL INSPECTOR PCP - General Nurse Practitioner 12/09/18 Science Education Professor Relationship Specialty Start Date End Date Víctor Chadwick MD [address] [place] [address] PCP - General Family Medicine 04/16/23 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, SHANNON [address] [place] [address] Nurse Practitioner Family Medicine 02/26/22 Jovany Ovalle DO [address] [place] [address] Otolaryngology 11/08/23 Science Education Professor Relationship Specialty Start Date End Date Víctor Chadwick MD [address] [place] [address] PCP - General Family Medicine 04/16/23 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 NP [address] [place] [address] Nurse Practitioner Family Medicine 02/26/22 Jovany Ovalle DO [address] [place] [place] [address] Otolaryngology 11/08/23 Science Education Professor Relationship Specialty Start Date End Date Víctor Chadwick MD [address] [place] [address] PCP - General Family Medicine 12/27/23 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 NP [address] [place] [address] Nurse Practitioner Family Medicine 02/26/22 Jovany Ovalle DO [address] [place] [address] Otolaryngology 11/08/23 Source Comments (unrecognize d section and content) In the event this informatio n is protected by the Federal Confidentiality of Alcohol and Drug Abuse Patient Records regulations: The Federal rules restrict any use of the information to criminally investigate or prosecute any alcohol or drug abuse patient.[facility] the event this information is protected by the Federal Confidentiality of Alcohol and Drug Abuse Patient Records regulations: The Federal rules restrict any use of the information to criminally investigate or prosecute any alcohol or drug abuse patient.[facility] the event this information is protected by the Federal Confidentiality of Alcohol and Drug Abuse Patient Records regulations: The Federal rules restrict any use of the information to criminally investigate or prosecute any alcohol or drug abuse patient.[facility] the event this information is protected by the Federal Confidentiality of Alcohol and Drug Abuse Patient Records regulations: The Federal rules restrict any use of the information to criminally investigate or prosecute any alcohol or drug abuse patient.[facility] the event this information is protected by the Federal Confidentiality of Alcohol and Drug Abuse Patient Records regulations: The Federal rules restrict any use of the information to criminally investigate or prosecute any alcohol or drug abuse patient.[facility] the event this information is protected by the Federal Confidentiality of Alcohol and Drug Abuse Patient Records regulations: The Federal rules restrict any use of the information to criminally investigate or prosecute any alcohol or drug abuse patient.[facility] the event this information is protected by the Federal Confidentiality of Alcohol and Drug Abuse Patient Records regulations: The Federal rules restrict any use of the information to criminally investigate or prosecute any alcohol or drug abuse patient.[facility] Hospital[facility] the event this information is protected by the Federal Confidentiality of Alcohol and Drug Abuse Patient Records regulations: The Federal rules restrict any use of the information to criminally investigate or prosecute any alcohol or drug abuse patient.[facility] the event this information is protected by the Federal Confidentiality of Alcohol and Drug Abuse Patient Records regulations: The Federal rules restrict any use of the information to criminally investigate or prosecute any alcohol or drug abuse patient.[facility] the event this information is protected by the Federal Confidentiality of Alcohol and Drug Abuse Patient Records regulations: The Federal rules restrict any use of the information to criminally investigate or prosecute any alcohol or drug abuse patient.[facility] Reason for Visit (unrecogniz ed section and content) Reason Comments New Patient Numbness/Tingling Numbness Tingling kaur nds and feet Specialty Diagnoses / Procedures Referred By Contac t Referred To Contact [facility] Diagnoses Spinal stenosis at L4-L5 level Cervical spinal stenosis Procedures AMB REFERRAL TO NEUROSURGERY 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, GRAVEL INSPECTOR [address] [place] [address] Lewis Hernandez MD [facility] [address] [place] [address] Referral ID Status Reason Start Date Expiration Date V isits Requested Visits Authorized [id number] Outside PCP 05/14/2023 11/10/2023 1 1 Specialty Diagnoses / Procedures Referred By Contac t Referred To Contact Diagnoses Pre-op testing Procedures REFER TO PACC - PRE ANESTHESIA CONSULTATION CLINIC OFFICE/OUTPATIENT [facility] 60 MINUTES Rufina Wiggins PA-C [id number] 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 - Other Reason Comments Dysphagia New Problem : Dyspha airam Specialty Diagnoses / Procedures Referred By Contac t Referred To Contact Otolaryngology Diagnoses Dysphagia, unspecified type Procedures [place] OFFICE/OUTPATIENT NEW HIGH MDM 60 MINUTES 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, SHANNON [address] [place] [address] Phone: tel: fax: Jovany Ovalle, DO [address] [place] [address] Phone: tel: fax: Referral ID Status Reason Start Date Expiration Date V isits Requested Visits Authorized [id number] Closed Specialty Services Required 12/18/2023 06/15/2024 1 0 Reason Comments Dysphagia MBS / Esoph results Reason Comments 1year follow up testing Vas art doppler lwr bilat mult lev/ No testing done prior to appointment. Denies any problems today Reason Comments Mastoid Cleaning 6 month evelyne Goals (unrecognized section and content) Goals may be documented in a n alternate sectionGoals may be documented in an alternate sectionNot on filedocumented as of this encounter FOR RECORDS PERTAINING TO PATIENTS WHO ARE [...] BE BASED ON THE PRIMARY CLINICAL RECORDS. [employer] provides no warranty or guarantee of the accuracy or completeness of information in this document.
== END 2024-02-13 10:30 | disposition home or self-care (01) ==
LOC: VC 10:30
PROVIDERS: PCP Nurse Practitioner; Visit Provider Student in an Organized Health Care Education/Training Program
DX: I73.9 Peripheral vascular disease, unspecified (principal); I65.23 Occlusion and stenosis of bilateral carotid arteries; F17.210 Nicotine dependence, cigarettes, uncomplicated
CPT/HCPCS: 93880; 93923

== ENCOUNTER 2024-03-20 08:05 | Outpatient (OUT) | payer MEDICARE, SELFPAY ==
--- OUTSIDE RECORDS SUMMARY | 2024-03-20 08:10 | XMS_ITS | CCD ---
Author Organization [facility] Care Team Providers Care Custom Clothier Name Role Phone AICHHOLZ, BIOPHARMACEUTICAL REP DEVI Attending Unavailable AICHHOLZ, BIOPHARMACEUTICAL REP DEVI Consulting Unavailable AICHHOLZ, BIOPHARMACEUTICAL REP DEVI Primary Care Unavailable AICHHOLZ, BIOPHARMACEUTICAL REP DEVI Admitting Unavailable AICHHOLZ, BIOPHARMACEUTICAL REP DEVI Attending Unavailable AICHHOLZ, BIOPHARMACEUTICAL REP DEVI Consulting Unavailable AICHHOLZ, BIOPHARMACEUTICAL REP DEVI Primary Care Unavailable AICHHOLZ, BIOPHARMACEUTICAL REP DEVI Admitting Unavailable DR SAVAGE OATES V Consulting Unavailable ALINE, YULIYA Admitting Unavailable ALINE, YULIYA Attending Unavailable AICHHOLZ, BIOPHARMACEUTICAL REP DEVI Primary Care Unavailable ALINE, YULIYA Consulting Unavailable AICHHOLZ, BIOPHARMACEUTICAL REP DEVI Admitting Unavailable AICHHOLZ, BIOPHARMACEUTICAL REP DEVI Consulting Unavailable AICHHOLZ, BIOPHARMACEUTICAL REP DEVI Attending Unavailable AICHHOLZ, BIOPHARMACEUTICAL REP DVEI Primary Care Unavailable DR ARTEM MIRANDA Consulting Unavailable AICHHOLZ, BIOPHARMACEUTICAL REP DEVI Attending Unavailable AICHHOLZ, BIOPHARMACEUTICAL REP DEVI Consulting Unavailable AICHHOLZ, BIOPHARMACEUTICAL REP DEVI Primary Care Unavailable AICHHOLZ, BIOPHARMACEUTICAL REP DEVI Admitting Unavailable DR BART AL Admitting Unavailabl e SERVANDO, DR BART Craig Attending Unavailabl e DR BART AL Consulting Unavailabl e AICHHOLZ, BIOPHARMACEUTICAL REP DEVI Primary Care Unavailable CHRISTEN ARREDONDO Consulting Unavailable SOPHIE SLATER Consulting Unavailable GISELLE GORDILLO Consulting Unavailable DR SAVAGE OATES V Consulting Unavailable AICHHOLZ, BIOPHARMACEUTICAL REP DEVI Attending Unavailable AICHHOLZ, BIOPHARMACEUTICAL REP DEVI Primary Care Unavailable AICHHOLZ, BIOPHARMACEUTICAL REP DEVI Admitting Unavailable AICHHOLZ, BIOPHARMACEUTICAL REP DEVI Consulting Unavailable AICHHOLZ, BIOPHARMACEUTICAL REP DEVI Attending Unavailable AICHHOLZ, BIOPHARMACEUTICAL REP DEVI Consulting Unavailable AICHHOLZ, BIOPHARMACEUTICAL REP DEVI Primary Care Unavailable AICHHOLZ, BIOPHARMACEUTICAL REP DEVI Admitting Unavailable Aichholz REFERRAL RN, Devi Unavailable Aichholz BIOPHARMACEUTICAL REP, Devi Jess Unavailable Aichholz BIOPHARMACEUTICAL REP, Devi Jess Primary Care Provider MICHELLE, GANDHIVARMA Attending Unavail able AICHHOLZ, DEVI JESS Primary Care Unavailable AICHHOLZ, DEVI JESS Primary Care Unavailable CLOVIS GUNDERSON Referring Unavailable AICHHOLZ, DEVI JESS Primary Care Unavailable MICHELLE, GANDHIVARMA Referring Unavail able MICHELLE, GANDHIVARMA Attending Unavail able AICHHOLZ, DEVI JESS Referring Unavailable MICHELLE, GANDHIVARMA Referring Unavail able Aichholz REFERRAL RN, Devi Unavailable Netta GONZALES, Víctor Primary Care Provider Jovany Ovalle DO Unavailable Víctor Chadwick MD Primary Care Provider Jovany Ovalle DO Attending Provider 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 Primary Care Provider [phone] Jovany Ovalle Attending Unavailable Jovany Ovalle Admitting Unavailable Aichholz, Devi Lopez Primary Care Unavailable Mercedes KEITH, Nannette Cooper Primary Care Provider [phone] DELYM MENA Attending Unavailable AICHHOLZ, DEVI Attending Unavailable AICHHOLZ, DEVI Attending Unavailable BIJOVANY PAREDES S Attending Unavailable AICHHOLZ, DEVI Attending Unavailable AICHHOLZ, DEVI Attending Unavailable AICHHOLZ, DEVI Attending Unavailable AICHHOLZ, DEVI Attending Unavailable BIEDENZANDRA, JOVANY S Attending Unavailable AICHHOLZ, DEVI Referring Unavailable AICHHOLZ, DEVI Attending Unavailable BIEDENBACH, JOVANY S Attending Unavailable AICHHOLZ, DEVI Referring Unavailable BIEDENBACH, JOVANY S Attending Unavailable AICHHOLZ, DEVI Referring Unavailable BIEDENBACH, JOVANY S Attending Unavailable AICHHOLZ, DEVI Attending Unavailable Allergies Allergy Classification Reported Allergen(s) Allergy Type Date of Onset Reaction(s) Facility Benzalkonium (1 source) Benzalkonium Drug Allergy 4 Rash [facility] (1 source) Bacitracin / Neomycin / Polymyxin B Drug Allergy 4 [facility] (1 source) black walnut pollen extract Drug Allergy [facility] (20 sources) Amoxicillin Drug Allergy 3 Nausea Only [facility] (20 sources) Bacitracin Drug Allergy 1 rash, swelling [facility] (20 sources) Bacitracin / Polymyxin B Drug Allergy 3 Swelling [facility] (20 sources) HMG-CoA reductase inhibitor Drug Intolerance 1 [facility] (20 sources) montelukast Drug Allergy 3 [facility] (20 sources) Neomycin Drug Allergy 1 rash, swelling [facility] (20 sources) Polymyxin B Drug Allergy 1 rash, swelling [facility] (20 sources) Amoxicillin-Pot Clavulanate Drug Allergy 3 GI intolerance [facility] (20 sources) Other Propensity to adverse reactions 9 [facility] (7 sources) Benzalkonium; Translations: [BENZALKONIUM CHLORIDE] Drug Allergy 4 Rash [facility] (20 sources) Benzalkonium Drug Allergy 4 Rash [facility] (1 source) Bacitracin Drug Allergy 1 [facility] (1 source) Neomycin Drug Allergy 1 [facility] (1 source) polymyxin B Drug allergy (disorder) 1 [facility] (1 source) bacitracin / neomycin / polymyxin b Drug Allergy 9 [facility] (1 source) HMG-CoA reductase inhibitor Propensity to adverse reactions to drug 1 [facility] Medications Current Medications Medication Drug Class(es) Dates Sig (Normalized) Sig (Original) [id number] 200 actuat albuterol 0.09 mg/actuat metered dose inhaler (20 sources) beta2-Adrenergic Agonist Start: 04-03-2023 End: 05-03-2023 take 2 puff(s) by inhalation every six hours for wheezing albuterol HFA 90 mcg/act inhaler Indications: COPD exacerbation ([facility]) Inhale 2 puffs every 6 (six) hours [...] Dihydropyridine Calcium Channel Usama Start: 09-24-2023 End: 06-17-2024 take 1 tablet by mouth once daily amLODIPine (Norvasc) 10 MG tablet Indications: Primary hypertension (CMS/HCC) Take 1 tablet (10 mg) by mouth Daily 90 tablet 1 03/19/2024 06/17/2024 Active Start: 12-02-2018 End: 07-12-2023 take 1 [...] by mouth once daily at breakfast vit A,C,K-Jgrl-Qsxmqn (PRESERVISION AREDS) 2,148 mcg-113 mg-45 mg-17.4mg tab Take 1 tablet by mouth daily with breakfast. Active ascorbic acid 113 mg / copper gluconate 0.4 mg / docosahexaenoic acid 87.5 mg / eicosapentaenoic acid 163 mg / lutein 2.5 mg / tocopherol acetate 100 unt / zeaxanthin 0.5 mg / zinc oxide 17.4 mg oral capsule (20 sources) Vitamin C Multiple Vitamins-Minerals (PreserVision AREDS 2) capsule as directed Orally Active aspirin 81 mg delayed release oral tablet (20 sources) Platelet Aggregation Inhibitor, Nonsteroidal Anti-inflammatory Drug Start: 2023 End: 2023 take 1 tablet by mouth in the morning aspirin 81 MG EC tablet Indications: Primary hypertension (CMS/HCC) Take 1 tablet (81 mg) by mouth in the morning. 90 tablet 1 09/24/2023 12/23/2023 Active benzonatate 200 mg oral capsule (10 sources) Non-narcotic Antitussive Start: 2023 End: 2024 take 1 capsule by mouth three times daily as needed for cough benzonatate (Tessalon) 200 MG capsule Indications: COPD exacerbation (CMS/HCC) , Acute non-recurrent frontal sinusitis Take 1 capsule (200 mg) by mouth 3 (three) times a day as needed for cough for up to 7 days Do not crush or chew. 21 capsule 02/25/2024 03/03/2024 Active Start: 09-11-2023 End: 12-18-2023 take 1 capsule by mouth three times daily for cough benzonatate (Tessalon) 200 MG capsule TAKE 1 CAPSULE BY MOUTH THREE TIMES DAILY FOR COUGH FOR 30 DAYS 09/11/2023 12/18/2023 Discontinued (Therapy completed) 120 actuat budesonide 0.16 mg/actuat / formoterol fumarate 0.0048 mg/actuat / glycopyrrolate 0.009 mg/actuat metered dose inhaler (16 sources) Corticosteroid, beta2-Adrenergic Agonist Start: 02-25-2024 End: 03-26-2024 take 2 puff(s) by inhalation in the morning Figebcb-Khdhcxncjpf-Daqkisxjws (Breztri Aerosphere) 160-9-4.8 MCG/ACT aerosol Indications: Pulmonary emphysema, unspecified emphysema type (CMS/HCC) Inhale 2 puffs in the morning and 2 puffs before bedtime. 10.7 g 5 02/25/2024 03/26/2024 Active budesonide-glyco pyr-formoterol (BREZTRI AEROSPHERE) 160-9-4.8 mcg/actuation HFA aerosol inhaler Inhale 2 Puffs as instructed. Active clopidogrel 75 mg oral tablet (1 source) P2Y12 Platelet Inhibitor Start: 07-22-2020 take 1 tablet by mouth in the morning clopidogreL (PLAVIX) 75 mg tablet Take 1 tablet (75 mg total) by mouth in the morning. 07/22/2020 Active cyclobenzaprine hydrochloride 10 mg oral tablet (8 sources) Muscle Relaxant Start: 08-07-2023 End: 12-18-2023 take 1 tablet by mouth every eight hours as needed cyclobenzaprine (Flexeril) 10 MG tablet Take 10 mg by mouth every 8 (eight) hours if needed 08/07/2023 12/18/2023 Discontinued (Therapy completed) docusate sodium 100 mg oral capsule (8 sources) Start: 08-07-2023 End: 12-18-2023 take 1 capsule by mouth in the morning docusate sodium (Colace) 100 MG capsule Take 100 mg by mouth in the morning and 100 mg before bedtime. 08/07/2023 12/18/2023 Discontinued (Therapy completed) doxycycline hyclate 100 mg oral tablet (3 sources) Tetracycline-cl ass Drug Start: 02-25-2024 End: 03-06-2024 doxycycline (Vibra-Tabs) 100 MG tablet Indications: COPD exacerbation (CMS/HCC) , Acute non-recurrent frontal sinusitis Take 1 tablet (100 mg) by mouth in the morning and 1 tablet (100 mg) before bedtime. Do all this for 10 days. Take with a full glass of water and do not lie down for at least 30 minutes after.. 20 tablet 02/25/2024 03/06/2024 Active Start: 04-03-2023 End: 04-13-2023 doxycycline (Vibra-Tabs) 100 MG tablet Indications: COPD exacerbation (CMS/HCC) Take 1 tablet (100 mg) by mouth in the morning and 1 tablet (100 mg) before bedtime. Do all this for 10 days. Take with a full glass of water and do not lie down for at least 30 minutes after.. 20 tablet 0 04/03/2023 04/13/2023 Active fluorouracil 50 mg/ml topical cream (20 sources) Nucleoside Metabolic Inhibitor Start: 04-05-2023 fluorouracil (Efudex) 5 % cream Apply 1 application topically at bedtime HS to Forehead ,temples, scalp and part line 3 times a week. 04/05/2023 Active hydroCHLOROthiazide 25 mg oral tablet (2 sources) Thiazide Diuretic Start: 10-02-2022 take 0.5 tablet by mouth in the morning hydroCHLOROthiazide (HYDRODiuril) 25 MG tablet Indications: HTN (hypertension), benign (CMS/HCC) Take 0.5 tablets (12.5 mg) by mouth in the morning. 15 tablet 3 10/02/2022 Active Start: 10-10-2018 take 1 capsule by mo uth once daily hydroCHLOROthiazide (MICROZIDE) 12.5 mg capsule Take 1 capsule (12.5 mg total) by mouth daily. 0 10/10/2018 Active hydrOXYzine hydrochloride 25 mg oral tablet (10 sources) Antihistamine Start: 10-19-2023 End: 12-18-2023 hydrOXYzine HCl (Atarax) 25 MG tablet Twice daily 10/19/2023 Active lisinopril 40 mg oral tablet (20 sources) Angiotensin Converting Enzyme Inhibitor Start: 10-10-2018 End: 06-17-2024 take 1 tablet by mouth once daily lisinopril 40 MG tablet Indications: Primary hypertension (CMS/HCC) Take 1 tablet (40 mg) by mouth Daily 90 tablet 1 03/19/2024 06/17/2024 Active mupirocin 0.02 mg/mg topical ointment (4 sources) RNA Synthetase Inhibitor Antibacterial Start: 06-19-2023 End: 08-06-2023 mupirocin (BACTROBAN) 2 % ointment Apply 1/2 ointment with a cotton swab in each nostril 2x daily for five days preop 22 g 0 06/19/2023 08/06/2023 Active omeprazole 40 mg delayed release oral capsule (9 sources) Proton Pump Inhibitor Start: 01-18-2024 End: [...] 12/25/2023 Active predniSONE 20 mg oral tablet (3 sources) Start: 02-25-2024 End: 03-01-2024 take 1 tablet by mouth in the morning predniSONE (Deltasone) 20 MG tablet Indications: COPD exacerbation (CMS/HCC) Take 1 tablet (20 mg) by mouth in the morning and 1 tablet (20 mg) in the evening. Take with meals. Do all this for 5 days. 10 tablet 02/25/2024 03/01/2024 Active Start: 04-03-2023 End: 04-13-2023 take 1 tablet [...] sources) Bronchiectasis; Translations: [Bronchiectasis, uncomplicated] Onset: 3 Resolved: 5 10-31-2022 Chronic Deficiency and other anemia (6 sources) Anemia, unspecified; Translations: [ANEMIA UNSPECIFIED] Onset: 2 Episodic Deficiency and other anemia (19 sources) Iron deficiency anemia; Translations: [Iron deficiency anemia, unspecified] Onset: 4 12-18-2023 Episodic Disorders of lipid metabolism (20 sources) Mixed hyperlipidemia; Translations: [Mixed hyperlipidemia] Onset: 1 Resolved: 3 04-03-2023 Chronic E Codes: Fall (1 source) Fall (on)(from) sidewalk curb, initial encounter; Translations: [FALL ON FROM SIDEWALK CURB INITIAL] Onset: 3 Episodic Esophageal disorders (20 sources) Laryngopharyngeal reflux; Translations: [Gastro-esophageal reflux disease without esophagitis] Onset: 3 10-31-2022 Chronic Essential hypertension (20 sources) Essential (primary) hypertension; Translations: [Essential hypertension] Onset: 1 Resolved: 3 Chronic Occlusion or stenosis of precerebral arteries (20 sources) Occlusion and stenosis of left carotid artery; Translations: [Carotid artery stenosis] Onset: 1 Resolved: 5 Chronic Other aftercare (1 source) medical terminologist (current) use of aspirin; Translations: [METERMAN CURRENT USE OF ASPIRIN] Onset: 3 Episodic Other aftercare (1 source) Other assisted (current) drug therapy; Translations: [OTH SKILLED NURSING CURRENT DRUG THERAPY] Onset: 3 Episodic Other ear and sense organ disorders (20 sources) Decreased hearing ; Translations: [Unspecified hearing loss, bilateral] Onset: 3 09-05-2022 Chronic Other ear and sense organ disorders (20 sources) Chronic left myringitis; 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, left ear] Onset: 3 Resolved: 3 10-31-2022 Chronic Other gastrointestinal disorders (20 sources) Dysphagia; Translations: [Dysphagia, unspecified] Onset: 4 08-16-2023 Episodic Other gastrointestinal disorders (1 source) Dysphagia, unspecified; Translations: [Dysphagia, unspecified] Onset: 4 Episodic Other male genital disorders (20 sources) Balanitis xerotica obliterans; 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 [...] Chronic Other nutritional; endocrine; and metabolic disorders (20 sources) Hypocalcemia; Translations: [Hypocalcemia] Onset: 4 04-10-2023 Chronic Other nutritional; endocrine; and metabolic disorders (20 sources) Overweight in adulthood with body mass index of 25 or more but less than 30; Translations: [Body mass index (BMI) 29.0-29.9, adult] Onset: 4 04-03-2023 Episodic Other skin disorders (7 sources) Eruption; Translations: [Rash and other nonspecific skin eruption] Onset: 4 02-25-2024 Episodic Other upper respiratory disease (20 sources) Chronic rhinitis; Translations: [Chronic rhinitis] Onset: 4 04-09-2023 Chronic Other upper respiratory disease (20 sources) Allergic rhinitis; Translations: [Allergic rhinitis, unspecified] Onset: 4 05-14-2023 Chronic Other upper respiratory infections (12 sources) Acute frontal sinusitis; Translations: [Acute frontal sinusitis, unspecified] Onset: 4 Resolved: 4 02-25-2024 Episodic Residual codes; unclassified (1 source) Tobacco use; Translations: [Tobacco user] Onset: 4 Episodic Residual codes; unclassified (4 sources) Other specified health status; Translations: [Other drug allergy] Onset: 5 03-19-2024 Episodic Spondylosis; intervertebral disc disorders; other back problems (20 sources) Degeneration of cervical intervertebral disc; Translations: [Other cervical disc degeneration, unspecified cervical region] Onset: 3 12-12-2022 Chronic Substance-related disorders (14 sources) Nicotine dependence, cigarettes, uncomplicated; Translations: [Cigarette smoker ] Onset: 3 01-31-2024 Chronic Superficial injury; contusion (4 sources) Contusion of other part of head, initial encounter; Translations: [Abrasion of other part of head, initial encounter] Onset: 3 Episodic Thyroid disorders (20 sources) Nontoxic single thyroid nodule; Translations: [Thyroid nodule] Onset: 2 Chronic Unclassified (3 sources) COUGH, UNSPECIFIED; Translations: [COUGH, UNSPECIFIED] Onset: 04-05-202 3 Past or Other Problems Problem Classification Problem Date Documented Da te Episodic/Chronic Allergic reactions (11 sources) Inflammatory dermatosis; Translations: [Dermatitis, unspecified] Onset: 01-18-2024 Resolved: 01-18-2024 10-19-2023 Episodic Deficiency and other anemia (20 sources) Anemia; Translations: [Anemia, unspecified] Onset: 05-14-2023 07-12-2023 Episodic Immunizations and screening for infectious disease (20 sources) [employer] antibody positive; Translations: [Other specified abnormal immunological findings in serum] Onset: 10-31-2022 10-31-2022 Episodic Malaise and fatigue (20 sources) Asthenia; Translations: [Weakness] Onset: 10-03-2022 10-03-2022 Episodic Mood disorders (15 sources) Mood disorders Onset: 12-18-2023 12-18-2023 Other connective tissue disease (20 sources) Bilateral trochanteric bursitis; Translations: [Trochanteric bursitis, right hip] Onset: 11-28-2022 11-28-2022 Episodic Other ear and sense organ disorders (20 sources) Mixed conductive AND sensorineural hearing loss; Translations: [Mixed conductive and sensorineural hearing loss, unspecified] Onset: 10-31-2022 Resolved: 10-31-2022 10-31-2022 Chronic Other ear and sense organ disorders (20 sources) Sudden hearing loss; Translations: [Sudden idiopathic hearing loss, left ear] Onset: 10-31-2022 Resolved: 10-31-2022 10-31-2022 Episodic Other lower respiratory disease (20 sources) Dyspnea; Translations: [Shortness of breath] Onset: 07-27-2020 Resolved: 10-31-2022 10-31-2022 Episodic Other nervous system disorders (20 sources) Numbness and tingling sensation of skin; Translations: [Anesthesia of skin] Onset: 10-03-2022 10-03-2022 Episodic Other nervous system disorders (20 sources) H/O: ear disorder; Translations: [Personal history of other diseases of the nervous system and sense organs] Onset: 05-14-2023 05-14-2023 Episodic Other screening for suspected conditions (not [...] Onset: 05-14-2023 07-12-2023 Episodic Residual codes; unclassified (20 sources) H/O Spinal surgery; Translations: [Other specified postprocedural states] Onset: 08-06-2023 Resolved: 03-19-2024 08-06-2023 Episodic Spondylosis; intervertebral disc disorders; other back problems (20 sources) Spinal stenosis in cervical region; Translations: [Spinal stenosis, cervical region] Onset: 09-05-2022 09-05-2022 Episodic Unclassified (1 source) COUGH, UNSPECIFIED; Translations: [COUGH, UNSPECIFIED] Onset: 05-24-2022 Results Test Name Value Interpretation Reference Range Facility [place] esophaguson 01-10-2024 [place] esophagus [facility] [place] [address] Fluoroscopy Report Signed Patient: Sunni Blackburn MR#: [id number] : 1940 Acct:[id number] Age/Sex: 83 / M ADM Date: 01/10/24 Loc: XD Room: Type: [facility] Attending Dr: Jovany Ovalle DO Copies to: [...] Jonah Edmonds M.D.01/10/2024 10:38 AM Dictation Location: [place] [address] Transcribed By: [facility] 01/10/24 1038 Dictated By: Jonah Edmonds II, MD 01/10/24 1035 Signed By: 01/10/24 1038 Normal [facility] Fluoroscopy reportOrdered By : Jonah Edmonds on 01-10-2024 RF Unspecified body region Views [facility] Main [place] [address] [place] [address] Fluoroscopy Report Signed Patient: Sunni Blackburn MR#: [id number] : 1940 Acct:[id number] Age/Sex: 83 / M ADM Date: 4 Loc: XD Room: Type: [facility] Attending Dr: Jovany Ovalle DO Copies to: [...] Jonah Edmonds M.D.01/10/2024 10:38 AM Dictation Location: [place] [address] Transcribed By: [facility] 01/10/24 1038 Dictated By: Jonah Edmonds II, MD 01/10/24 1035 Signed By: 01/10/24 1038 [facility] Work Phone: ALL CBC WITH AUTO DIFFon BASOPHILS ABSOLUTE AUTO 0 [facility] Basophils/100 WBC (Bld) 0.4 % 0.2 - 2.0 % [facility] Eosinophils/100 WBC (Bld) 1.7 % 0.9 - 7.0 % [facility] Erythrocyte distribution width (RBC) [Ratio] 14.6 % 11.0 - 15.0 % [facility] Hematocrit (Bld) [Volume fraction] 41.5 % Low 42.0 - 54.0 % [facility] Hemoglobin (Bld) [Mass/Vol] 13.4 g/dL Low 14.0 - 18.0 g/dL [facility] IMMATURE GRANULOCYTES ABS AUTO 0.04 High [facility] Immature granulocytes/100 WBC (Bld) 0.4 % 0.0 - 0.5 % [facility] Interpretation and review of laboratory results Abnormal [facility] LYMPHOCYTES ABSOLUTE AUTO 0.7 Low [facility] Lymphocytes/100 WBC (Bld) 7.7 % Low 20.5 - 60.0 % [facility] MCH (RBC) [Entitic mass] 30.2 pg 25.9 - 34.0 pg [facility] MCHC (RBC) [Mass/Vol] 32.3 g/dL 29.9 - 35.2 g/dL [facility] MCV (RBC) [Entitic vol] 93.5 fL 80.0 - 94.0 fL [facility] MONOCYTES ABSOLUTE AUTO 0.6 [facility] Monocytes/100 WBC (Bld) 6.9 % 1.7 - 12.0 % [facility] NEUTROPHILS ABSOLUTE AUTO 7.5 High [facility] Neutrophils/100 WBC (Bld) 82.9 % High 43.0 - 75.0 % [facility] Platelet mean volume (Bld) [Entitic vol] 11.1 fL 9.5 - 13.5 fL [facility] EO # 0.2 [facility] PLT 216 [facility] RBC 4.44 Low [facility] WBC 9.1 [facility] CNPNon 10-18-2023 CNPN Telephone (NSFRVW) SUNNI BLACKBURN ([id number]) 1940 M Date Time Provider Department 10/18/23 REBECA MARTINEZ NSFRVW During your visit today, we recorded the following information about you: Isaías Bonilla 10/18/2023 11:22 AM Signed Received outside medical records from [facility], discharge notes, in chart for review. Jerry Delvalle, ARIEL 10/18/2023 11:41 AM Signed noted Allergies As of Date: 10/18/2023 Noted Allergy Reaction NEOSPORIN (BENZALKONIUM CHLORIDE) 07/12/2023 2 - Rash Comments: Blisters/scarring on skin. Date Reviewed: 08/23/2023 Reviewed by: Nilsa Nguyen OCCA - Fully Assessed Reason for Visit: Received Outside Medical Records [[id number]] Prescriptions as of 10/18/2023 - vit A,C,S-Wlce-Vdigin (PRESERVISION AREDS) 2,148 mcg-113 mg-45 mg-17.4mg tab [...] Encounter Status:Closed by [facility] Telephone (NEdateIITiansFV) SUNNI BLACKBURN ([id number]) 1940 M Date Time Provider Department 09/03/23 REBECA MARTINEZ During your visit today, we recorded the following information about you: Danay Rayo 09/03/2023 2:42 PM Signed [facility] PT Initial Exam report scanned to [facility] for review and completion Jerry Delvalle RN 09/03/2023 2:49 PM Signed Printed for review AND signature Allergies As of Date: 09/03/2023 Noted Allergy Reaction NEOSPORIN (BENZALKONIUM CHLORIDE) 07/12/2023 2 - Rash Comments: Blisters/scarring on skin. Date Reviewed: 08/23/2023 Reviewed by: Nilsa Nguyen OCCA - Fully Assessed Reason for Visit: Rivet Catcher - Other [[id number]] Prescriptions as of 09/03/2023 - vit A,C,W-Ermx-Zfyxpp (PRESERVISION AREDS) 2,148 mcg-113 mg-45 mg-17.4mg tab [...] Encounter Status:Closed by JERRY DELVALLE on 09/03/23 [facility] 08-27-2023 [facility] Telephone (NEADFV) SUNNI BLACKBURN ([id number]) 1940 M Date Time Provider Department 08/27/23 REBECA MARTINEZ During your visit today, we recorded the following information about you: Danay Rayo 08/27/2023 8:38 AM Signed Pt phoned asking if there were any restrictions he should follow. Please call and advise Pt phone [phone] Jermaine Granado, ARIEL 08/27/2023 9:46 AM Signed Called and spoke with patient. Answered all questions. Patient stated he was unaware that PT was ordered for him. Wants to complete PT at [facility]. PT fax number [phone]. Faxed to number with confirmation fax. Allergies As of Date: 08/27/2023 Noted Allergy Reaction NEOSPORIN (BENZALKONIUM CHLORIDE) 07/12/2023 2 - Rash Comments: Blisters/scarring on skin. Date Reviewed: 08/23/2023 Reviewed by: Nilsa Nguyen OCCA - Fully Assessed Reason for Visit: Patient Question [9907] Prescriptions as of 08/27/2023 - vit A,C,O-Epwu-Ewsyby (PRESERVISION AREDS) 2,148 mcg-113 mg-45 mg-17.4mg tab [...] Encounter Status:Closed by JERMAINE [facility]RANADO [facility]27/23 [facility] SUNNI BLACKBURN ([id number]) 1940 M Date Time Provider Department 08/23/23 11:40 AM REBECA MARTINEZ SPSNAV During your visit today, we recorded the following information about you: Rebeca Martinez MD 08/23/2023 11:42 AM Signed SPINE SURGERY FOLLOW UP This is an in-person visit. SERVICE DATE: 08/23/2023 SURGERY DATE: 08/06/2023 Britzak Dominguez Alexey is a pleasant 89-year-old gentleman is here in spine surgery clinic for 2 weeks postoperative follow-up visit. He underwent a C4-5, C5-6 anterior cervical discectomy, allograft and instrumented fusion on 08/06/2023. Prior to surgery he was complaining of shocklike sensation in bilateral upper extremity for a year. He also noticed diffuse sensory disturbance up to fingers. 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 Since surgery [...] to fingers. 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 Since surgery [...] Nguyen OCC (more content not included)... Normal [facility] 07-13[facility]2023 [facility] ALEXEYSUNNI Trejo ([id number]) 1940 M Date Time Provider Department 07/13/23 CLOVIS GUNDERSON During your visit today, we recorded the following information about you: Clovis Gunderson APRN.BIOPHARMACEUTICAL REP 07/13/2023 7:58 AM Signed Patient was seen [...] mg for surgery. Thank you Clovis Gunderson REFERRAL RN-C Allergies As of Date: 07/13/2023 Noted Allergy Reaction NEOSPORIN (BENZALKONIUM CHLORIDE) 07/12/2023 2 - Rash Comments: Blisters/scarring on skin. Date Reviewed: 07/12/2023 Reviewed by: Clovis Gunderson APRN.BIOPHARMACEUTICAL REP - Fully Assessed Reason for Visit: Medication Problem [65] Prescriptions as of 07/13/2023 - vit A,C,Z-Rqdg-Ymdqfc (PRESERVISION AREDS) 2,148 mcg-113 mg-45 mg-17.4mg tab [...] Status:Closed by CLOVIS GUNDERSON on 07/13/23 Normal [facility] ACTIVATED PARTIAL THROMBOPLA STIN TIMEOrdered By: Cata Miranda on 07-12-2023 aPTT Coag (PPP) [Time] 31.9 s [facility] Comment on above: Frozen Plasma Aliquo t CBC W Auto Differential pane l (Bld)on 07-12-2023 Basophils (Bld) [#/Vol] 0.04 10*3/uL [facility] Basophils/100 WBC (Bld) 0.5 % [facility] Differential cell count method Nom (Bld) Auto [facility] Eosinophils (Bld) [#/Vol] 0.21 10*3/uL [facility] Eosinophils/100 WBC (Bld) 2.4 % [facility] Erythrocyte distribution width (RBC) [Ratio] 15.0 % 11.5 - 15.0 % [facility] Hematocrit (Bld) [Volume fraction] 41.3 % 39.0 - 51.0 % [facility] Hemoglobin (Bld) [Mass/Vol] 13.5 g/dL 13.0 - 17.0 g/dL [facility] Immature granulocytes (Bld) [#/Vol] 0.05 10*3/uL [facility] Immature granulocytes/100 WBC (Bld) 0.6 % [facility] Lymphocytes (Bld) [#/Vol] 1.53 10*3/uL [facility] Lymphocytes/100 WBC (Bld) 17.4 % [facility] MCH (RBC) [Entitic mass] 30.1 pg 26.0 - 34.0 pg [facility] MCHC (RBC) [Mass/Vol] 32.7 g/dL 30.5 - 36.0 g/dL [facility] MCV (RBC) [Entitic vol] 92.0 fL 80.0 - 100.0 fL [facility] Monocytes (Bld) [#/Vol] 0.63 10*3/uL [facility] Monocytes/100 WBC (Bld) 7.2 % [facility] Neutrophils (Bld) [#/Vol] 6.33 10*3/uL [facility] Neutrophils/100 WBC (Bld) 71.9 % [facility] Nucleated RBC (Bld) [#/Vol] NINF [facility] Nucleated RBC/100 WBC (Bld) [Ratio] 0.0 % /100 WBC [facility] Platelet mean volume (Bld) [Entitic vol] 12.2 fL 9.0 - 12.7 fL [facility] Platelets (Bld) [#/Vol] 230 10*3/uL [facility] RBC (Bld) [#/Vol] 4.49 10*6/uL 4.20 - 6.0 0 m/uL [facility] WBC (Bld) [#/Vol] 8.79 10*3/uL [facility] Basophils (Bld) [#/Vol] 0.04 10*3/uL Normal <0.11 [facility] Comment on above: Order Comment: Speci men Type: BLOOD SPECIMEN Ordering Facility: [facility] Address: [address] [place] [address] Performed By: #### 3 4528-0, 91697-2 #### [facility] CLIA [id number] [address] [place] [address] [place] Basophils/100 WBC (Bld) 0.5 % Normal [facility] Comment on above: Order Comment: Speci men Type: BLOOD SPECIMEN Ordering Facility: [facility] Address: [address] [place] [address] Performed By: #### 3 4528-0, 29346-3 #### [facility] CLIA [id number] [address] [place] [address] [place] Differential cell count method Nom (Bld) Auto Normal [facility] Comment on above: Order Comment: Speci men Type: BLOOD SPECIMEN Ordering Facility: [facility] Address: [address] [place] [address] Performed By: #### 3 4528-0, 55756-0 #### [facility] CLIA [id number] [address] [place] [address] [place] Eosinophils (Bld) [#/Vol] 0.21 10*3/uL Normal <0.46 [facility] Comment on above: Order Comment: Speci men Type: BLOOD SPECIMEN Ordering Facility: [facility] Address: [address] [place] [address] Performed By: #### 3 4528-0, 60143-8 #### [facility] CLIA [id number] [address] [place] [address] [place] Eosinophils/100 WBC (Bld) 2.4 % Normal [facility] Comment on above: Order Comment: Speci men Type: BLOOD SPECIMEN Ordering Facility: [facility] Address: [address] [place] [address] Performed By: #### 3 4528-0, 05780-4 #### [facility] CLIA [id number] [address] [place] [address] [place] Erythrocyte distribution width (RBC) [Ratio] 15.0 % Normal 11.5-15.0 [facility] Comment on above: Order Comment: Speci men Type: BLOOD SPECIMEN Ordering Facility: [facility] Address: [address] [place] [address] Performed By: #### 3 4528-0, 88912-7 #### [facility] CLIA [id number] [address] [place] [address] [place] Hematocrit (Bld) [Volume fraction] 41.3 % Normal 39.0-51.0 [facility] Comment on above: Order Comment: Speci men Type: BLOOD SPECIMEN Ordering Facility: [facility] Address: [address] [place] [address] Performed By: #### 3 4528-0, 52692-7 #### [facility] CLIA [id number] [address] [place] [address] [place] Hemoglobin (Bld) [Mass/Vol] 13.5 g/dL Normal 13.0-17.0 [facility] Comment on above: Order Comment: Speci men Type: BLOOD SPECIMEN Ordering Facility: [facility] Address: [address] [place] [address] Performed By: #### 3 4528-0, 24166-8 #### [facility] CLIA [id number] [address] [place] [address] [place] Immature granulocytes (Bld) [#/Vol] 0.05 10*3/uL Normal <0.10 [facility] Comment on above: Order Comment: Speci men Type: BLOOD SPECIMEN Ordering Facility: [facility] Address: [address] [place] [address] Performed By: #### 3 4528-0, 85525-9 #### [facility] CLIA [id number] [address] [place] [address] [place] Immature granulocytes/100 WBC (Bld) 0.6 % Normal [facility] Comment on above: Order Comment: Speci men Type: BLOOD SPECIMEN Ordering Facility: [facility] Address: [address] [place] [address] Performed By: #### 3 4528-0, 75246-1 #### [facility] CLIA [id number] [address] [place] [address] [place] Lymphocytes (Bld) [#/Vol] 1.53 10*3/uL Normal 1.00-4.00 [facility] Comment on above: Order Comment: Speci men Type: BLOOD SPECIMEN Ordering Facility: [facility] Address: [address] [place] [address] Performed By: #### 3 4528-0, 25227-8 #### [facility] CLIA [id number] [address] [place] [address] [place] Lymphocytes/100 WBC (Bld) 17.4 % Normal [facility] Comment on above: Order Comment: Speci men Type: BLOOD SPECIMEN Ordering Facility: [facility] Address: [address] [place] [address] Performed By: #### 3 4528-0, 17096-1 #### [facility] CLIA [id number] [address] [place] [address] [place] MCH (RBC) [Entitic mass] 30.1 pg Normal 26.0-34.0 [facility] Comment on above: Order Comment: Speci men Type: BLOOD SPECIMEN Ordering Facility: [facility] Address: [address] [place] [address] Performed By: #### 3 4528-0, 67052-8 #### [facility] CLIA [id number] [address] [place] [address] [place] MCHC (RBC) [Mass/Vol] 32.7 g/dL Normal 30.5-36.0 [facility] Comment on above: Order Comment: Speci men Type: BLOOD SPECIMEN Ordering Facility: [facility] Address: [address] [place] [address] Performed By: #### 3 4528-0, 40247-6 #### [facility] [place] [id number] [address] [place] [address] [place] MCV (RBC) [Entitic vol] 92.0 fL Normal 80.0-100.0 [facility] Comment on above: Order Comment: Speci men Type: BLOOD SPECIMEN Ordering Facility: [facility] Address: [address] [place] [address] Performed By: #### 3 4528-0, 55902-2 #### [facility] [place] [id number] [address] [place] [address] [place] Monocytes (Bld) [#/Vol] 0.63 10*3/uL Normal <0.87 [facility] Comment on above: Order Comment: Speci men Type: BLOOD SPECIMEN Ordering Facility: [facility] Address: [address] [place] [address] Performed By: #### 3 4528-0, 99067-5 #### [facility] [place] [id number] [address] [place] [address] [place] Monocytes/100 WBC (Bld) 7.2 % Normal [facility] Comment on above: Order Comment: Speci men Type: BLOOD SPECIMEN Ordering Facility: [facility] Address: [address] [place] [address] Performed By: #### 3 4528-0, 36778-9 #### [facility] CLIA [id number] [address] [place] [address] [place] Neutrophils (Bld) [#/Vol] 6.33 10*3/uL Normal 1.45-7.50 [facility] Comment on above: Order Comment: Speci men Type: BLOOD SPECIMEN Ordering Facility: [facility] Address: [address] [place] [address] Performed By: #### 3 4528-0, 49144-5 #### [facility] CLIA [id number] [address] [place] [address] [place] Neutrophils/100 WBC (Bld) 71.9 % Normal [facility] Comment on above: Order Comment: Speci men Type: BLOOD SPECIMEN Ordering Facility: [facility] Address: [address] [place] [address] Performed By: #### 3 4528-0, 36454-1 #### [facility] CLIA [id number] [address] [place] [address] [place] Nucleated RBC (Bld) [#/Vol] 10*3/uL Normal <0.01 [facility] Comment on above: Order Comment: Speci men Type: BLOOD SPECIMEN Ordering Facility: [facility] Address: [address] [place] [address] Performed By: #### 3 4528-0, 25374-7 #### [facility] CLIA [id number] [address] [place] [address] [place] Nucleated RBC/100 WBC (Bld) [Ratio] 0.0 /100 WBC Normal [facility] Comment on above: Order Comment: Speci men Type: BLOOD SPECIMEN Ordering Facility: [facility] Address: [address] [place] [address] Performed By: #### 3 4528-0, 25931-3 #### [facility] CLIA [id number] [address] [place] [address] [place] Platelet mean volume (Bld) [Entitic vol] 12.2 fL Normal 9.0-12.7 [facility] Comment on above: Order Comment: Speci men Type: BLOOD SPECIMEN Ordering Facility: [facility] Address: [address] [place] [address] Performed By: #### 3 4528-0, 39668-3 #### [facility] CLIA [id number] [address] [place] [address] [place] Platelets (Bld) [#/Vol] 230 10*3/uL Normal 150-400 [facility] Comment on above: Order Comment: Speci men Type: BLOOD SPECIMEN Ordering Facility: [facility] Address: [address] [place] [address] Performed By: #### 3 4528-0, 79220-2 #### [facility] CLIA [id number] [address] [place] [address] [place] RBC (Bld) [#/Vol] 4.49 10*6/uL Normal 4.20-6.00 [facility] Comment on above: Order Comment: Speci men Type: BLOOD SPECIMEN Ordering Facility: [facility] Address: [address] [place] [address] Performed By: #### 3 4528-0, 22688-4 #### [facility] CLIA [id number] [address] [place] [address] [place] WBC (Bld) [#/Vol] 8.79 10*3/uL Normal 3.70-11.00 [facility] Comment on above: Order Comment: Speci men Type: BLOOD SPECIMEN Ordering Facility: [facility] Address: [address] [place] [address] Performed By: #### 3 4528-0, 45181-5 #### [facility] CLIA [id number] [address] [place] [address] [place] CONFIRM BLOOD TYPEon 024 ABO group Nom (Bld) A [facility] Rh Nom (Bld) Positive [facility] ABO A Normal [facility] Comment on above: Order Comment: Speci men Type: BLOOD SPECIMEN Ordering Facility: [facility] Address: [address] [place] [address] Performed By: #### 3 4528-0, 64423-5 #### [facility] CLIA [id number] [address] [place] [address] [place] Rh Nom (Bld) Positive Normal [facility] Comment on above: Order Comment: Speci men Type: BLOOD SPECIMEN Ordering Facility: [facility] Address: [address] [place] [address] Performed By: #### 3 4528-0, 02065-1 #### [facility] CLIA [id number] [address] [place] [address] [place] Comprehensive metabolic 2000 panelon 07-12-2023 Albumin [Mass/Vol] 3.9 g/dL 3.9 - 4.9 g/dL [facility] ALP [Catalytic activity/Vol] 90 U/L 38 - 113 U/L [facility] ALT [Catalytic activity/Vol] 12 U/L 10 - 54 U/L [facility] Anion gap [Moles/Vol] 11 mmol/L 9 - 18 mmol/L [facility] AST [Catalytic activity/Vol] 17 U/L 14 - 40 U/L [facility] Bilirubin [Mass/Vol] 0.2 mg/dL 0.2 - 1 .3 mg/dL [facility] Calcium [Mass/Vol] 9.0 mg/dL 8.5 - 10. 2 mg/dL [facility] Chloride [Moles/Vol] 106 mmol/L High 97 - 10 5 mmol/L [facility] CO2 [Moles/Vol] 23 mmol/L 22 - 30 mmol/L [facility] Creatinine [Mass/Vol] 0.90 mg/dL 0.73 - 1.22 mg/dL [facility] GFR/1.73 sq M.predicted among non-blacks MDRD (S/P/Bld) [Vol rate/Area] 85 mL/min/{1.73_m2} - PINF [facility] Comment on above: Estimated Glomerular Filtration [...] [Mass/Vol] 99 mg/dL 74 - 99 mg/dL [facility] Comment on above: The [place] Diab[employer] Association (ADA) provides guidance for [...] Standards of Medical Care in Diabetes 2016, [place] [employer]. Diabetes Care. 2016.39(Suppl 1). Interpretation and review of laboratory results Abnormal [facility] Potassium [Moles/Vol] 4.3 mmol/L 3.7 - 5.1 mmol/L [facility] Protein [Mass/Vol] 6.5 g/dL 6.3 - 8.0 g/dL [facility] Sodium [Moles/Vol] 140 mmol/L 136 - 144 mmol/L [facility] Urea nitrogen [Mass/Vol] 24 mg/dL 9 - 24 mg/dL [facility] Albumin [Mass/Vol] 3.9 g/dL Normal 3.9-4.9 [facility] Comment on above: Order Comment: Speci men Type: BLOOD SPECIMEN Ordering Facility: [facility] Address: [address] [place] [address] Performed By: #### 5 0190-8, 72848-2, 2275-4 #### [facility] CLIA [id number] [address] [place] [address] [place] ALP [Catalytic activity/Vol] 90 U/L Normal 38-113 [facility] Comment on above: Order Comment: Speci men Type: BLOOD SPECIMEN Ordering Facility: [facility] Address: [address] [place] [address] Performed By: #### 5 0190-8, 75127-3, 2275-4 #### [facility] CLIA [id number] [address] [place] [address] [place] ALT [Catalytic activity/Vol] 12 U/L Normal 10-54 [facility] Comment on above: Order Comment: Speci men Type: BLOOD SPECIMEN Ordering Facility: [facility] Address: [address] [place] [address] Performed By: #### 5 0190-8, 13059-3, 2275-4 #### [facility] CLIA [id number] [address] [place] [address] [place] Anion gap [Moles/Vol] 11 mmol/L Normal 9-18 [facility] Comment on above: Order Comment: Speci men Type: BLOOD SPECIMEN Ordering Facility: [facility] Address: [address] [place] [address] Performed By: #### 5 0190-8, 94003-9, 2275-4 #### [facility] CLIA [id number] [address] [place] [address] [place] AST [Catalytic activity/Vol] 17 U/L Normal 14-40 [facility] Comment on above: Order Comment: Speci men Type: BLOOD SPECIMEN Ordering Facility: [facility] Address: [address] [place] [address] Performed By: #### 5 0190-8, 11268-2, 2275-05 #### [facility] CLIA [id number] [address] [place] [address] [place] Bilirubin [Mass/Vol] 0.2 mg/dL Normal 0.2-1.3 [facility] Comment on above: Order Comment: Speci men Type: BLOOD SPECIMEN Ordering Facility: [facility] Address: [address] [place] [address] Performed By: #### 5 0190-8, 21754-4, 2275-05 #### [facility] CLIA [id number] [address] [place] [address] [place] Calcium [Mass/Vol] 9.0 mg/dL Normal 8.5-10.2 [facility] Comment on above: Order Comment: Speci men Type: BLOOD SPECIMEN Ordering Facility: [facility] Address: [address] [place] [address] Performed By: #### 5 0190-8, 35448-7, 2275-05 #### [facility] CLIA [id number] [address] [place] [address] [place] Chloride [Moles/Vol] 106 mmol/L High 97-105 [facility] Comment on above: Order Comment: Speci men Type: BLOOD SPECIMEN Ordering Facility: [facility] Address: [address] [place] [address] Performed By: #### 5 0190-8, 60875-9, 2275-05 #### [facility] CLIA [id number] [address] [place] [address] [place] CO2 [Moles/Vol] 23 mmol/L Normal 22-30 [facility] Comment on above: Order Comment: Speci men Type: BLOOD SPECIMEN Ordering Facility: [facility] Address: [address] [place] [address] Performed By: #### 5 0190-8, 09253-7, 2275-05 #### [facility] CLIA [id number] [address] [place] [address] [place] Creatinine [Mass/Vol] 0.90 mg/dL Normal 0.73-1.22 [facility] Comment on above: Order Comment: [place] Type: BLOOD SPECIMEN Ordering Facility: [facility] Address: [address] [place] [address] Performed By: #### 5 0190-8, 38445-7, 2276-4 #### [facility] CLIA [id number] [address] [place] [address] [place] Creatinine and Glomerular filtration rate.predicted panel (S/P/Bld) 85 mL/min/1.73m??? Normal >=60 [facility] Comment on above: Order Comment: [place] Type: BLOOD SPECIMEN Ordering Facility: [facility] Address: [address] [place] [address] Result Comment: Kirsty mated Glomerular Filtration Rate [...] actual GFR. Performed By: #### 5 0190-8, 65863-0, 6-4 #### [facility] CLIA [id number] [address] [place] [address] [place] Glucose [Mass/Vol] 99 mg/dL Normal 74-99 [facility] Comment on above: Order Comment: [place] duke Type: BLOOD SPECIMEN Ordering Facility: [facility] Address: [address] [place] [address] Result Comment: The [place] Diabetes Association (ADA) provides guidance for cutoff [...] Standards of Medical Care in Diabetes 2016, [place] [employer]. Diabetes Care. 2016.39(Suppl 1). Performed By: #### 5 0190-8, 05462-2, 2275-4 #### [facility] CLIA [id number] [address] [place] [address] [place] Potassium [Moles/Vol] 4.3 mmol/L Normal 3.7-5.1 [facility] Comment on above: Order Comment: Speci men Type: BLOOD SPECIMEN Ordering Facility: [facility] Address: [address] [place] [address] Performed By: #### 5 0190-8, 75170-8, 2275-05 #### [facility] CLIA [id number] [address] [place] [address] [place] Protein [Mass/Vol] 6.5 g/dL Normal 6.3-8.0 [facility] Comment on above: Order Comment: Speci men Type: BLOOD SPECIMEN Ordering Facility: [facility] Address: [address] [place] [address] Performed By: #### 5 0190-8, 01531-6, 2275-05 #### [facility] CLIA [id number] [address] [place] [address] [place] Sodium [Moles/Vol] 140 mmol/L Normal 136-144 [facility] Comment on above: Order Comment: Speci men Type: BLOOD SPECIMEN Ordering Facility: [facility] Address: [address] [place] [address] Performed By: #### 5 0190-8, 18082-7, 2275-4 #### [facility] CLIA [id number] [address] [place] [address] [place] Urea nitrogen [Mass/Vol] 24 mg/dL Normal 9-24 [facility] Comment on above: Order Comment: Speci men Type: BLOOD SPECIMEN Ordering Facility: [facility] Address: [address] [place] [address] Performed By: #### 5 0190-8, 80214-6, 2276-4 #### [facility] CLIA [id number] [address] [place] [address] [place] ECG COMPLETEon 07-12-2023 Atrial Rate 69 BPM [facility] Calculated P [place] 68 degrees [facility] Calculated R [place] 29 degrees [facility] Calculated T [place] 42 degrees [facility] P-R Interval 172 ms [facility] QRS Duration 82 ms [facility] QT Interval 420 ms [facility] QTC Calculation (Bazett) 450 ms [facility] Ventricular Rate 69 BPM [facility] NORMAL SINUS RHYTHM NORMAL ECG Confirmed by EUNICE COYLE M.D. ([id number]) on 07/12/2023 9:12:33 PM [facility] NAME : SUNNI BLACKBURN PID : [id number] : 1940 Gender : Male Race : ORD : [id number] Procedure Date : Jul 12 2023 10:37:29 Edit Date : Jul 12 2023 21:12:34 Diagnosis: NORMAL SINUS RHYTHM NORMAL ECG Confirmed by EUNICE COYLE M.D. ([id number]) on 07/12/2023 9:12:33 PM Test Reason : Location : 145 : [facility] Overread By : EUNICE COYLE M.D. Edited By : EUNICE COYLE M.D. Referred By : CAROLYN MARTINEZ Acquired by : , [facility] ECG COMPLETE Ventricular Rate : 69 BPM Atrial Rate : 69 BPM P-R Interval : 172 ms QRS Duration : 82 ms Q-T Interval : 420 ms QTC Calculation(Bazett) : 450 ms Calculated P [place] : 68 degrees Calculated R [place] : 29 degrees Calculated T [place] : 42 degrees NORMAL SINUS RHYTHM NORMAL ECG Confirmed by EUNICE COYLE M.D. ([id number]) on 07/12/2023 9:12:33 PM NAME : SUNNI BLACKBURN PID : [id number] : 1940 Gender : Male Race : ORD : [id number] Procedure Date : Jul 12 2023 10:37:29 Edit Date : Jul 12 2023 21:12:34 Diagnosis: NORMAL SINUS RHYTHM NORMAL ECG Confirmed by EUNICE COYLE M.D. ([id number]) on 07/12/2023 9:12:33 PM Test Reason : Location : 145 : [facility] Overread By : EUNICE COYLE M.D. Edited By : EUNICE COYLE M.D. Referred By : CAROLYN MARTINEZ RMA Acquired by : am, Normal [facility] FERRITINon 07-12-2023 Ferritin [Mass/Vol] 151.0 ng/mL 30.3 - 5 65.7 ng/mL [facility] Ferritin SerPl-mCncon 2023 Ferritin [Mass/Vol] 151.0 ng/mL Normal 30.3-565.7 [facility] Comment on above: Order Comment: Speci men Type: BLOOD SPECIMEN Ordering Facility: [facility] Address: [address] [place] [address] Performed By: #### 5 0190-8, 94574-2, 2276-4 #### [facility] CLIA [id number] [address] [place] [address] [place] Ferritin [Mass/Vol]on 2023 Interpretation and review of laboratory results Normal [facility] HISTORY PHYSICALon HISTORY PHYSICAL HNO ID: [id number] Author: CLOVIS GUNDERSON APRN.BIOPHARMACEUTICAL REP Service: ? Author Type: Nurse Practitioner Type: [...] Interpretation and review of laboratory results Normal [facility] Iron [Mass/Vol] 88 ug/dL 41 - 186 ug/dL [facility] Iron binding capacity [Mass/Vol] 237 ug/dL 232 - 386 ug/dL [facility] Iron/TIBC [Molar ratio] 37.1 % 15.0 - 57.0 % [facility] Iron [Mass/Vol] 88 ug/dL Normal 41-186 [facility] Comment on above: Order Comment: Speci men Type: BLOOD SPECIMEN Ordering Facility: [facility] Address: [address] [place] [address] Performed By: #### 5 0190-8, 21948-7, 2276-4 #### [facility] CLIA [id number] [address] [place] [address] [place] Iron binding capacity [Mass/Vol] 237 ug/dL Normal 232-386 [facility] Comment on above: Order Comment: Speci men Type: BLOOD SPECIMEN Ordering Facility: [facility] Address: [address] [place] [address] Performed By: #### 5 0190-8, 53645-4, 6-4 #### [facility] CLIA [id number] [address] [place] [address] [place] Iron/TIBC [Molar ratio] 37.1 % Normal 15.0-57.0 [facility] Comment on above: Order Comment: Speci men Type: BLOOD SPECIMEN Ordering Facility: [facility] Address: [address] [place] [address] Performed By: #### 5 0190-8, 65416-3, 6-4 #### [facility] CLIA [id number] [address] [place] [address] [place] No Panel Informationon 07-11 [facility] No Panel InformationOrdered By: Cata Miranda on 07-12-2023 Interpretation and review of laboratory results Normal [facility] PT panel Coag (PPP)on 2023 INR Coag (PPP) [Relative time] 1.0 {INR} 0.9 - 1.3 [facility] Comment on above: Vitamin K Antagonist (VKA) Therapeutic Range: INR 2 to 3 (Target INR of 2.5) Note: For patients treated with VKA drugs, such as warfarin, the [employer] 2012 Guideline recommends [...] 2.5 to 3.5 (target INR of 3). jered Navarro. Chest 2012, 141:7S-47S Alicia ENAMORADO et dav. [facility] 2017, 70: 252-289 PT Coag (PPP) [Time] 10.5 s [facility] INR Coag (PPP) [Relative time] 1.0 {INR} Normal 0.9-1.3 [facility] Comment on above: Order Comment: Speci men Type: BLOOD SPECIMEN Ordering Facility: [facility] Address: [address] [place] [address] Result Comment: Ronit min K Antagonist (VKA) Therapeutic Range: INR 2 to 3 (Target INR of 2.5) Note: For patients treated with VKA drugs, such as warfarin, the [employer] 2012 Guideline recommends [...] 2.5 to 3.5 (target INR of 3). jered Navarro. Chest 2012, 141:7S-47S Alicia ENAMORADO et al. [facility] 2017, 70: 252-289 Performed By: #### 3 4528-0, 36079-1 #### [facility] CLIA [id number] [address] [place] [address] [place] PT Coag (PPP) [Time] 10.5 s Normal 9.7-13.0 [facility] Comment on above: Order Comment: Speci men Type: BLOOD SPECIMEN Ordering Facility: [facility] Address: [address] [place] [address] Performed By: #### 3 4528-0, 03582-3 #### [facility] CLIA [id number] [address] [place] [address] [place] TYPE AND SCREEN,30 DAYon ABO A Normal [facility] Comment on above: Order Comment: Speci men Type: BLOOD SPECIMEN Ordering Facility: [facility] Address: [address] [place] [address] Performed By: #### 3 4528-0, 50541-6 #### [facility] CLIA [id number] [address] [place] [address] [place] HISTORICAL AB SCR STATUS Negative Normal [facility] Comment on above: Order Comment: Speci men Type: BLOOD SPECIMEN Ordering Facility: [facility] Address: [address] [place] [address] Performed By: #### 3 4528-0, 23962-5 #### [facility] CLIA [id number] [address] [place] [address] [place] Rh Nom (Bld) Positive Normal [facility] Comment on above: Order Comment: Speci men Type: BLOOD SPECIMEN Ordering Facility: [facility] Address: [address] [place] [address] Performed By: #### 3 4528-0, 56762-0 #### [facility] CLIA [id number] [address] [place] [address] [place] aPTT Coag (PPP) [...] laboratory APTT reagent in use throughout the [facility]. [facility] aPTT PPPon 07-12-2023 aPTT Coag (PPP) [Time] 31.9 s Normal 23.0-32.4 Cl [facility] Comment on above: Order Comment: Speci men Type: BLOOD SPECIMEN Ordering Facility: [facility] Address: [address] [place] [address] Result Comment: Samia en Plasma Aliquot Performed By: #### 3 4528-0, 29595-8 #### [facility] CLIA [id number] [address] [place] [address] STATES OF [facility] Monica 06-20-2023 CNPN Telephone (NIQ) SUNNI BLACKBURN ([id number]) 1940 M Date Time Provider Department 06/20/23 REBECA MARTINEZ During your visit today, we recorded the following information about you: Liliam Clayton 06/20/2023 9:50 AM Signed Received Ultrasound of the Carotid report by fax from [facility]. Scanned fax to chart for review. Allergies As of Date: 06/20/2023 (Not on File) Date Reviewed: 06/19/2023 Reviewed by: Kala Horta MA - Fully Assessed Reason for Visit: Received Outside Medical Records [[id number]] Prescriptions as of 07/24/2023 - vit A,C,L-Spds-Bprvwh (PRESERVISION AREDS) 2,148 mcg-113 mg-45 mg-17.4mg tab [...] Encounter Status:Closed by LILIAM CLAYTON on 07/24/23 [facility] Radha 06-19-2023 CNOV Office Visit (NSFRVW) SUNNI BLACKBURN ([id number]) 1940 M Date Time Provider Department 06/19/23 [...] in bilateral upper extremity Walking difficulty Hand satellite project site monitor weakness HISTORY OF PRESENT ILLNESS: Sunni Blackburn [...] over bilateral hand. Noticed minimal right hand satellite project site monitor weakness and dropping things. Noticed minimal imbalance [...] SpO2 99% (more content not included)... Normal [facility] XR CERVICAL 4V AP/LAT/FLX/EX Ton 06-19-2023 [...] 1. No acute fracture 2. Degenerative changes. Photonics Engineer: PSCB Transcribe Date/Time: Jun 21 2023 3:35P Dictated by : DAKOTA CORONA MD This examination was interpreted and the report reviewed and electronically signed by: DAKOTA CORONA MD on Jun 21 2023 3:38PM EST [id number] CN Normal [facility] ALL CBC WITH AUTO DIFFon BASOPHILS ABSOLUTE AUTO 0.1 [facility] Basophils/100 WBC (Bld) 0.5 % 0.2 - 2.0 % [facility] Eosinophils/100 WBC (Bld) 1.7 % 0.9 - 7.0 % [facility] Erythrocyte distribution width (RBC) [Ratio] 14.9 % 11.0 - 15.0 % [facility] Hematocrit (Bld) [Volume fraction] 37.2 % Low 42.0 - 54.0 % [facility] Hemoglobin (Bld) [Mass/Vol] 12.0 g/dL Low 14.0 - 18.0 g/dL [facility] IMMATURE GRANULOCYTES ABS AUTO 0.25 High [facility] Immature granulocytes/100 WBC (Bld) 2.1 % High 0.0 - 0.5 % [facility] Interpretation and review of laboratory results Abnormal [facility] LYMPHOCYTES ABSOLUTE AUTO 2.5 [facility] Lymphocytes/100 WBC (Bld) 20.7 % 20.5 - 60.0 % [facility] MCH (RBC) [Entitic mass] 29.9 pg 25.9 - 34.0 pg [facility] MCHC (RBC) [Mass/Vol] 32.3 g/dL 29.9 - 35.2 g/dL [facility] MCV (RBC) [Entitic vol] 92.5 fL 80.0 - 94.0 fL [facility] MONOCYTES ABSOLUTE AUTO 1.0 High [facility] Monocytes/100 WBC (Bld) 8.6 % 1.7 - 12.0 % [facility] NEUTROPHILS ABSOLUTE AUTO 7.8 High [facility] Neutrophils/100 WBC (Bld) 66.4 % 43.0 - 75.0 % [facility] Platelet mean volume (Bld) [Entitic vol] 11.1 fL 9.5 - 13.5 fL [facility] TBH EO # 0.2 [facility] TB PLT [address] [facility] RBC 4.02 Low [facility] WBC 11.8 High [facility]IS[facility] US THYROIDon 07-26-2022 US THYROID EXAMINATION: US [...] ARTEM MIRANDA Date: 2022-07-26 09:12 Normal [facility] PROF CHEM 8 (BAS METB)on Anion gap [Moles/Vol] 11.5 mmol/L Normal e [facility] Comment on above: Performed By: #### B MP #### [facility] [address] [place] [address] Dr. Bethany Killian Calcium [Mass/Vol] 8.5 mg/dL Normal 8.5-10.1 [facility] Comment on above: Performed By: #### B MP #### [facility] [address] [address] [address] Bethany Killian Chloride [Moles/Vol] 109 mmol/L Critically high 98-107 [facility] Comment on above: Performed By: #### B MP #### [facility] [address] [address] [address] Bethany Killian CO2 [Moles/Vol] 26.2 mmol/L Normal 21.0-32.0 [facility] Comment on above: Performed By: #### B MP #### [facility] [address] [place] [address] Dr. Bethany Killian Creatinine [Mass/Vol] 1.06 mg/dL Normal 0.70-1.30 [facility] Comment on above: Performed By: #### B MP #### [facility] [address] [place] [address] Dr. Bethany Killian EGFR-AF YEMENI >60 Normal >=60 [facility] Comment on above: Performed By: #### B MP #### [facility] [address] [address] [address] Bethany Killian EGFR-NON AF YEMENI >60 Normal >=60 [facility] Comment on above: Performed By: #### B MP #### [facility] [address] [address] [address] Bethany Killian Glucose [Mass/Vol] 80 mg/dL Normal 74-106 [facility] Comment on above: Performed By: #### B MP #### [facility] [address] [address] [address] Bethany Killian Potassium [Moles/Vol] 4.7 mmol/L Normal 3.5-5.1 [facility] Comment on above: Performed By: #### B MP #### [facility] [address] [place] [address] Dr. Bethany Killian Sodium [Moles/Vol] 142 mmol/L Normal 136-145 [facility] Comment on above: Performed By: #### B MP #### [facility] [address] [place], [place] [address] Dr. Bethany Killian Urea nitrogen [Mass/Vol] 26.0 mg/dL Critically high 7.0-18.0 [facility] Comment on above: Performed By: #### B MP #### [facility] [address] [place], [place] [address] Dr. Bethany Killian Urea nitrogen/Creatinine [Mass ratio] 24.5 mg/mg [facility] Comment on above: Performed By: #### B MP #### [facility] [address] [place], [place] [address] CSPINE WO CONon [...] by: Lam GORDILLO Date: 2022-06-11 19:49 Normal [facility] CT HEAD WO CONon 06-11-2022 [...] CHRISTEN ARREDONDO Date: 2022-06-11 19:24 Normal [facility] XR CHEST 2 Von 05-25-2022 XR [...] SAVAGE OATES Date: 2022-05-25 07:20 Normal [facility] PROF CHEM 8 (BAS METB)on Anion gap [Moles/Vol] 12.2 mmol/L Normal [facility] Comment on above: Performed By: #### B MP ####[facility] [address] [address]Dr[address] Bethany Killian Calcium [Mass/Vol] 8.7 mg/dL Normal 8.5-10.1 [facility] Comment on above: Performed By: #### B MP ####[facility] [address] [place], [place] [address]Dr. Bethany Killian Chloride [Moles/Vol] 106 mmol/L Normal 98-107 [facility] Comment on above: Performed By: #### B MP ####[facility] [address] [place], [place] [address]Dr. Bethany Killian CO2 [Moles/Vol] 26.0 mmol/L Normal 21.0-32.0 [facility] Comment on above: Performed By: #### B MP ####[facility] [address] [place], [place] [address]Dr. Bethany Killian Creatinine [Mass/Vol] 1.04 mg/dL Normal 0.70-1.30 [facility] Comment on above: Performed By: #### B MP ####[facility] [address] [place], [place] [address]Dr. Felicitawalker Constantin EGFR-AF YEMENI >60 Normal >=60 [facility] Comment on above: Performed By: #### B MP ####[facility] [address] [place], [place] [address]Dr. Felicitawalker Constantin EGFR-NON AF YEMENI >60 Normal >=60 [facility] Comment on above: Performed By: #### B MP ####[facility] [address] [place], [place] [address]Dr. Betahny Killian Glucose [Mass/Vol] 85 mg/dL Normal 74-106 [facility] Comment on above: Performed By: #### B MP ####[facility] [address] [address]Dr. Bethany Killian Potassium [Moles/Vol] 4.2 mmol/L Normal 3.5-5.1 [facility] Comment on above: Performed By: #### B MP ####[facility] [address] [address]Dr. Bethany Killian Sodium [Moles/Vol] 140 mmol/L Normal 136-145 [facility] Comment on above: Performed By: #### B MP ####[facility] [address] [address]Dr. Bethany Killian Urea nitrogen [Mass/Vol] 29.0 mg/dL Critically high 7.0-18.0 [facility] Comment on above: Performed By: #### B MP ####[facility] [address] [place], [place] [address]Dr. Bethany Killian Urea nitrogen/Creatinine [Mass ratio] 27.9 mg/mg Normal [facility] Comment on above: Performed By: #### B MP ####[facility] [address] [address]Dr. Bethany Killian CBC AUTO DIFFon 02-24-2022 BASO # 0.0 103/ul Normal 0.0-0.1 [facility] Comment on above: Performed By: #### C BC #### [facility] [address] [address] [address] Bethany Killian Basophils/100 WBC (Bld) 0.3 % Normal 0.2-2.0 [facility] Comment on above: Performed By: #### C BC #### [facility] [address] [address] [address] Bethany Killian EO # 0.2 103/ul Normal 0.0-0.7 [facility] Comment on above: Performed By: #### C BC #### [facility] [address] [address] [address] Bethany Killian Eosinophils/100 WBC (Bld) 1.8 % Normal 0.9-7.0 [facility] Comment on above: Performed By: #### C BC #### [facility] [address] [address] [address] Bethany Killian Erythrocyte distribution width (RBC) [Ratio] 14.8 % Normal 11.0-15.0 [facility] Comment on above: Performed By: #### C BC #### [facility] [address] [place] [address] Dr. Bethany Killian Hematocrit (Bld) [Volume fraction] 38.3 % Critically low 42.0-54.0 [facility] Comment on above: Performed By: #### C BC #### [facility] [address] [place] [address] Dr. Bethany Killian Hemoglobin (Bld) [Mass/Vol] 12.6 g/dL Critically low 14.0-18.0 [facility] Comment on above: Performed By: #### C BC #### [facility] [address] [place] [address] Dr. Bethany Killian IG # 0.05 10e3/ul Critically high 0.00-0.03 [facility] Comment on above: Performed By: #### C BC #### [facility] [address] [place] [address] Dr. Bethany Killian IG % 0.6 % Critically high 0.0-0.5 [facility] Comment on above: Performed By: #### C BC #### [facility] [address] [place] [address] Dr. Bethany Killian LYMPH # 1.8 103/ul Normal 1.2-3.8 [facility] Comment on above: Performed By: #### C BC #### [facility] [address] [place] [address] Dr. Bethany Killian Lymphocytes/100 WBC (Bld) 20.2 % Critically low 20.5-60.0 [facility] Comment on above: Performed By: #### C BC #### [facility] [address] [place] [address] Dr. Bethany Killian MANUAL DIFF REQ NO Normal [facility] Comment on above: Performed By: #### C BC #### [facility] [address] [address] [address] Bethany Killian MCH (RBC) [Entitic mass] 29.9 pg Normal 25.9-34.0 [facility] Comment on above: Performed By: #### C BC #### [facility] [address] [place] [address] Dr. Bethany Killian MCHC (RBC) [Mass/Vol] 32.9 g/dL Normal 29.9-35.2 [facility] Comment on above: Performed By: #### C BC #### [facility] [address] [place] [address] Dr. Bethany Killian MCV (RBC) [Entitic vol] 90.8 fL Normal 80.0-94.0 [facility] Comment on above: Performed By: #### C BC #### [facility] [address] [place] [address] Dr. Bethany Killian MONO # 0.9 103/ul Critically high 0.3-0.8 [facility] Comment on above: Performed By: #### C BC #### [facility] [address] [place] [address] Dr. Bethany Killian Monocytes/100 WBC (Bld) 9.9 % Normal 1.7-12.0 [facility] Comment on above: Performed By: #### C BC #### [facility] [address] [place] [address] Dr. Bethany Killian NEUT # 5.9 103/ul Normal 1.4-6.5 [facility] Comment on above: Performed By: #### C BC #### [facility] [address] [place] [address] Dr. Bethany Killian Neutrophils/100 WBC (Bld) 67.2 % Normal 43.0-75.0 [facility] Comment on above: Performed By: #### C BC #### [facility] [address] [place] [address] Dr. Bethany Killian Platelet mean volume (Bld) [Entitic vol] 11.8 fL Normal 9.5-13.5 [facility] Comment on above: Performed By: #### C BC #### [facility] [address] [address] [address] Bethany Killian PLT 242 103/ul Normal 150-450 [facility] Comment on above: Performed By: #### C BC #### [facility] [address] [address] [address] Bethany Killian RBC 4.22 106/ul Critically low 4.70-6.10 [facility] Comment on above: Performed By: #### C BC #### [facility] [address] [address] [address] Bethany Killian WBC 8.8 103/ul Normal 4.0-11.0 [facility] Comment on above: Performed By: #### C BC #### [facility] [address] [address] [address] Bethany Killian FERRITINon 02-24-2022 Ferritin [Mass/Vol] 156.0 ng/mL Normal 26.0-388.0 [facility] Comment on above: Performed By: #### I BRAYAN FERR #### [facility] [address] [address] [address] Bethany Killian IRONon 02-24-2022 Iron [Mass/Vol] 99.0 ug/dL Normal 65.0-175.0 [facility] Comment on above: Performed By: #### I BRAYAN FERR #### [facility] [address] [address] [address] Bethany Killian PROF CHEM 8 (BAS METB)on Anion gap [Moles/Vol] 12.9 mmol/L Normal [facility] Comment on above: Result Comment: Prev iously reported as: 0.3 On 02/24/2022 13:42 By DM9 Performed By: #### B MP ####[facility] [address] [address]Dr. Bethany Killian Calcium [Mass/Vol] 8.9 mg/dL Normal 8.5-10.1 [facility] Comment on above: Performed By: #### B MP ####[facility] [address] [address]Dr. Bethany Killian Chloride [Moles/Vol] 102 mmol/L Normal 98-107 [facility] Comment on above: Result Comment: Prev iously reported as: 108 On 02/24/2022 13:42 By DM9 Performed By: #### B MP ####[facility] [address] [address]Dr. Bethany Killian CO2 [Moles/Vol] 27.4 mmol/L Normal 21.0-32.0 [facility] Comment on above: Result Comment: Prev iously reported as: 27.8 On 02/24/2022 13:42 By DM9 Performed By: #### B MP ####[facility] [address] [place], [place] [address]Dr. Bethany Killian Creatinine [Mass/Vol] 1.21 mg/dL Normal 0.70-1.30 [facility] Comment on above: Performed By: #### B MP ####[facility] [address] [place], [place] [address]Dr. Bethany Killian EGFR-AF YEMENI >60 Normal >=60 [facility] Comment on above: Performed By: #### B MP ####[facility] [address] [place], [place] [address]Dr. Bethany Killian EGFR-NON AF YEMENI 58 mL/min/1.73m2 Critically low >=60 [facility] Comment on above: Performed By: #### B MP ####[facility] [address] [place], [place] [address]Dr. Bethany Killian Glucose [Mass/Vol] 98 mg/dL Normal 74-106 [facility] [facility] Comment on above: Performed By: #### B MP ####[facility] [address] [place], [place] [address]Dr. Bethany Killian Potassium [Moles/Vol] 4.3 mmol/L Normal 3.5-5.1 [facility] Comment on above: Result Comment: Prev iously reported as: 4.1 On 02/24/2022 13:42 By DM9 Performed By: #### B MP ####[facility] [address] [id number]. Bethany Killian Sodium [Moles/Vol] 138 mmol/L Normal 136-145 [facility] Comment on above: Result Comment: Prev iously reported as: 132 On 02/24/2022 13:42 By DM9 Performed By: #### B MP ####[facility] [address] [address]Dr. Bethany Killian Urea nitrogen [Mass/Vol] 37.0 mg/dL Critically high 7.0-18.0 [facility] Comment on above: Performed By: #### B MP ####[facility] [address] [address]Dr. Bethany Killian Urea nitrogen/Creatinine [Mass ratio] 30.6 mg/mg Normal [facility] Comment on above: Performed By: #### B MP ####[facility] [address] [address]DrBhavin Killian CBC AUTO DIFFon 01-02-2022 BASO # 0.0 103/ul Normal 0.0-0.1 [facility] Comment on above: Performed By: #### C BC #### [facility] [address] [address] [address] Bethany Killian Basophils/100 WBC (Bld) 0.5 % Normal 0.2-2.0 [facility] Comment on above: Performed By: #### C BC #### [facility] [address] [address] [address] Bethany Killian EO # 0.1 103/ul Normal 0.0-0.7 [facility] Comment on above: Performed By: #### C BC #### [facility] [address] [address] [address] Bethany Killian Eosinophils/100 WBC (Bld) 1.7 % Normal 0.9-7.0 [facility] Comment on above: Performed By: #### C BC #### [facility] [address] [address] [address] Bethany Killian Erythrocyte distribution width (RBC) [Ratio] 14.6 % Normal 11.0-15.0 [facility] Comment on above: Performed By: #### C BC #### [facility] [address] [place] [address] Dr. Bethany Killian Hematocrit (Bld) [Volume fraction] 37.8 % Critically low 42.0-54.0 [facility] Comment on above: Performed By: #### C BC #### [facility] [address] [place] [address] Dr. Bethany Killian Hemoglobin (Bld) [Mass/Vol] 12.0 g/dL Critically low 14.0-18.0 [facility] Comment on above: Performed By: #### C BC #### [facility] [address] [place] [address] Dr. Bethany Killian IG # 0.04 10e3/ul Critically high 0.00-0.03 [facility] Comment on above: Performed By: #### C BC #### [facility] [address] [place] [address] Dr. Bethany Killian IG % 0.5 % Normal 0.0-0.5 [facility] Comment on above: Performed By: #### C BC #### [facility] [address] [place] [address] Dr. Bethany Killian LYMPH # 1.2 103/ul Normal 1.2-3.8 [facility] Comment on above: Performed By: #### C BC #### [facility] [address] [place] [address] Dr. Bethany Killian Lymphocytes/100 WBC (Bld) 15.1 % Critically low 20.5-60.0 [facility] Comment on above: Performed By: #### C BC #### [facility] [address] [place] [address] Dr. Bethany Killian MANUAL DIFF REQ NO Normal [facility] Comment on above: Performed By: #### C BC #### [facility] [address] [place] [address] Dr. Bethany Killian MCH (RBC) [Entitic mass] 29.8 pg Normal 25.9-34.0 [facility] Comment on above: Performed By: #### C BC #### [facility] [address] [address] [address] Bethany Killian MCHC (RBC) [Mass/Vol] 31.7 g/dL Normal 29.9-35.2 [facility] Comment on above: Performed By: #### C BC #### [facility] [address] [address] [address] Bethany Killian MCV (RBC) [Entitic vol] 93.8 fL Normal 80.0-94.0 [facility] Comment on above: Performed By: #### C BC #### [facility] [address] [place] [address] Dr. Bethany Killian MONO # 0.8 103/ul Normal 0.3-0.8 [facility] Comment on above: Performed By: #### C BC #### [facility] [address] [place] [address] Dr. Bethany Killian Monocytes/100 WBC (Bld) 10.3 % Normal 1.7-12.0 [facility] Comment on above: Performed By: #### C BC #### [facility] [address] [place] [address] Dr. Bethany Killian NEUT # 5.8 103/ul Normal 1.4-6.5 [facility] Comment on above: Performed By: #### C BC #### [facility] [address] [place] [address] Dr. Bethany Killian Neutrophils/100 WBC (Bld) 71.9 % Normal 43.0-75.0 [facility] Comment on above: Performed By: #### C BC #### [facility] [address] [address] [address] Bethany Killian Platelet mean volume (Bld) [Entitic vol] 12.2 fL Normal 9.5-13.5 [facility] Comment on above: Performed By: #### C BC #### [facility] [address] [place] [address] Dr. Bethany Killian PLT 241 103/ul Normal 150-450 [facility] Comment on above: Performed By: #### C BC #### [facility] [address] [address] [address] Bethany Killian RBC 4.03 106/ul Critically low 4.70-6.10 [facility] Comment on above: Performed By: #### C BC #### [facility] [address] [address] [address] Bethany Killian WBC 8.1 103/ul Normal 4.0-11.0 [facility] Comment on above: Performed By: #### C BC #### [facility] [address] [address] [address] Bethany Killian FREE T4on 01-02-2022 Free T4 [Mass/Vol] 1.00 ng/dL Normal 0.76-1.46 [facility] Comment on above: Performed By: #### F T4, PSASC ####[facility] [address] [address]DrBhavin Killian PROF 14(COMP METB)on 022 Albumin [Mass/Vol] 3.1 g/dL Critically low 3.4-5.0 [facility] Comment on above: Performed By: #### C MP, TSH ####[facility] [address] [address]DrBhavin Killian Albumin/Globulin [Mass ratio] 0.9 {ratio} Normal [facility] Comment on above: Performed By: #### C MP, TSH ####[facility] [address] [address]Dr. Bethany Killian ALP [Catalytic activity/Vol] 78 U/L Normal 46-116 [facility] Comment on above: Performed By: #### C MP, TSH ####[facility] [address] [address]Dr. Bethany Killian ALT [Catalytic activity/Vol] 19 U/L Normal 16-63 [facility] Comment on above: Performed By: #### C MP, TSH ####[facility] [address] [address]Dr. Bethany Killian Anion gap [Moles/Vol] 9.0 mmol/L Normal [facility] Comment on above: Performed By: #### C MP, TSH ####[facility] [address] [place], [place] [address]Dr. Bethany Killian AST [Catalytic activity/Vol] 12 U/L Critically low 15-37 [facility] Comment on above: Performed By: #### C MP, TSH ####[facility] [address] [place], [place] [address]Dr. Bethany Constantin Bilirubin [Mass/Vol] 0.4 mg/dL Normal 0.2-1.0 [facility] Comment on above: Performed By: #### C MP, TSH ####[facility] [address] [place], [place] [address]Dr. Bethany Killian Calcium [Mass/Vol] 8.6 mg/dL Normal 8.5-10.1 [facility] Comment on above: Performed By: #### C MP, TSH ####[facility] [address] [place], [place] [address]Dr. Bethany Killian Chloride [Moles/Vol] 105 mmol/L Normal 98-107 [facility] Comment on above: Performed By: #### C MP, TSH ####[facility] [address] [place], [place] [address]Dr. Bethany Killian CO2 [Moles/Vol] 28.6 mmol/L Normal 21.0-32.0 [facility] Comment on above: Performed By: #### C MP, TSH ####[facility] [address] [place], [place] [address]Dr. Bethany Constantin Creatinine [Mass/Vol] 0.99 mg/dL Normal 0.70-1.30 [facility] Comment on above: Performed By: #### C MP, TSH ####[facility] [address] [place], [place] [address]Dr. Felicitawalker Constantin EGFR-AF YEMENI >60 Normal >=60 [facility] Comment on above: Performed By: #### C MP, TSH ####[facility] [address] [place], [place] [address]Dr. Bethany Killian EGFR-NON AF YEMENI >60 Normal >=60 [facility] Comment on above: Performed By: #### C MP, TSH ####[facility] [address] [address]Dr. Bethany Constantin Globulin (S) [Mass/Vol] 3.5 g/dL Normal [facility] Comment on above: Performed By: #### C MP, TSH ####[facility] [address] [address]Dr. Felicitawalker Constantin Glucose [Mass/Vol] 85 mg/dL Normal 74-106 [facility] Comment on above: Performed By: #### C MP, TSH ####[facility] [address] [place], [place] [address]Dr. Bethany Killian Potassium [Moles/Vol] 4.6 mmol/L Normal 3.5-5.1 [facility] Comment on above: Performed By: #### C MP, TSH ####[facility] [address] [place], [place] [address]Dr. Bethany Killian Protein [Mass/Vol] 6.6 g/dL Normal 6.4-8.2 [facility] Comment on above: Performed By: #### C MP, TSH ####[facility] [address] [place], [place] [address]Dr. Bethany Killian Sodium [Moles/Vol] 138 mmol/L Normal 136-145 [facility] Comment on above: Performed By: #### C MP, TSH ####[facility] [address] [place], [place] [address]Dr. Bethany Constantin Urea nitrogen [Mass/Vol] 30.0 mg/dL Critically high 7.0-18.0 [facility] Comment on above: Performed By: #### C MP, TSH ####[facility] [address] [place], [place] [address]Dr. Bethany Killian Urea nitrogen/Creatinine [Mass ratio] 30.3 mg/mg Normal [facility] Comment on above: Performed By: #### C MP, TSH ####[facility] [address] [place], [place] [address]Dr. Bethany Killian TSHon 01-02-2022 TSH 1.411 uIU/mL Normal 0.358-3.740 [facility] Comment on above: Performed By: #### C MP, TSH ####[facility] [address] [address]Dr. Bethany Killian UA RANDOM W/MICROSCOPICon BACTERIA NONE SEEN Normal NONE SEEN [facility] Comment on above: Performed By: #### U AMIC #### [facility] [address] [place] [address] Dr. Bethany Killian Bilirubin Ql (U) Negative Normal NEGATIVE [facility] Comment on above: Performed By: #### U AMIC #### [facility] [address] [place] [address] Dr. Bethany Killian CAST NONE SEEN Normal NONE SEEN [facility] Comment on above: Performed By: #### U AMIC #### [facility] [address] [place] [address] Dr. Bethany Killian Clarity (U) CLEAR Normal CLEAR [facility] Comment on above: Performed By: #### U AMIC #### [facility] [address] [place] [address] Dr. Bethany Killian Color (U) LT. YELLOW Normal YELLOW [facility] Comment on above: Performed By: #### U AMIC #### [facility] [address] [place] [address] Dr. Bethany Killian Crystals LM Nom (Urine sed) NONE SEEN Normal NONE SEEN [facility] Comment on above: Performed By: #### U AMIC #### [facility] [address] [place] [address] Dr. Bethany Killian Epithelial cells LM Ql (Urine sed) NONE SEEN Normal NONE SEEN /RARE [facility] Comment on above: Performed By: #### U AMIC #### [facility] [address] [place] [address] Dr. Bethany Killian Glucose Ql (U) Negative Normal NEGATIVE [facility] Comment on above: Performed By: #### U AMIC #### [facility] [address] [address] [address] Bethany Killian Hemoglobin Ql (U) Negative Normal NEGATIVE [facility] Comment on above: Performed By: #### U AMIC #### [facility] [address] [address] [address] Bethany Killian Ketones Ql (U) Negative Normal NEGATIVE [facility] Comment on above: Performed By: #### U AMIC #### [facility] [address] [address] [address] Bethany Killian LEUKOCYTES Negative Normal NEGATIVE [facility] Comment on above: Performed By: #### U AMIC #### [facility] [address] [address] [address] Bethany Killian MUCOUS NONE SEEN Normal NONE SEEN [facility] Comment on above: Performed By: #### U AMIC #### [facility] [address] [place] [address] Dr. Bethany Killian Nitrite Ql (U) Negative Normal NEGATIVE [facility] Comment on above: Performed By: #### U AMIC #### [facility] [address] [place] [address] Dr. Bethany Killian pH (U) 6.5 [pH] Normal 5-9 [facility] Comment on above: Performed By: #### U AMIC #### [facility] [address] [place] [address] Dr. Bethany Killian RBC 0-2 Normal 0-2 [facility] Comment on above: Performed By: #### U AMIC #### [facility] [address] [address] [address] Bethany Killian SPEC GRAVITY 1.020 Normal 1.005-<=1.025 [facility] Comment on above: Performed By: #### U AMIC #### [facility] [address] [place] [address] Dr. Bethany Killian UA PROTEIN Negative Normal NEGATIVE/ TRACE [facility] Comment on above: Performed By: #### U AMIC #### [facility] [address] [address] [address] Bethany Killian Urobilinogen Qn (U) 0.2 {Ian'U}/dL Normal 0.2 - 1. 0 [facility] Comment on above: Performed By: #### U AMIC #### [facility] [address] [place], [place] [address] Dr. Bethany Killian WBC 0-2 Abnormal NONE SEEN [facility] Comment on above: Performed By: #### U AMIC #### [facility] [id number] Bethany Killian US CAROTID ART BILon [...] by: SAVAGE OATES Date: 2021-11-01 07:08 Normal [facility] FUNGAL CULTURE/SM, [facility] FUNGAL CULTURE/, [facility] PATIENT: SUNNI BLACKBURN LOCATION: [id number] BILL#: [id number] : 42 AGE: SEX: M ORDERED BY: DARNELL PELLETIER: [facility] COLLECTED: 10/19/16 00:00ANTIBIOTICS AT LORNA.: RECEIVED : 10/19/16 21:47SITE: R E S U L T S FUNGAL SMEAR FINAL 10/20/16 10:08 FLUORESCENT FUNGAL STAIN: NEGATIVE FUNGAL CULTURE/SM, MISC FINAL 11/06/16 10:46 NO FUNGI ISOLATED. Normal [facility] MISCELLANEOUS CULT./SM.BACT. on 10-19-2016 MISCELLANEOUS CULT./SM.BACT. PATIENT: SUNNI BLACKBURN LOCATION: [facility] BILL#: [id number] : 42 AGE: SEX: M ORDERED BY: DARNELL PELLETIER: MISC COLLECTED: 10/19/16 00:00ANTIBIOTICS AT LORNA.: RECEIVED : 10/19/16 22:24SITE: R E S U L T S GRAM STAIN FINAL 10/20/16 00:59 NO GRANULOCYTES OR ORGANISMS SEEN. MISCELLANEOUS CULT./SM.BACT. FINAL 10/22/16 11:43 2+ MIXED SKIN PAVITHRA Normal [facility] Vital Signs Date Time Vital Sign Value Performing Clinician Faci lity 03-19-2024 10:08-0500 Body mass index (BMI) [Ratio] 29.15 kg/m2 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 REFERRAL RN Work Phone: [facility] 03-19-2024 10:08-0500 Body temperature 98.49 [degF] 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 REFERRAL RN Work Phone: [facility] 03-19-2024 10:08-0500 Body weight 82.56 kg 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 REFERRAL RN Work Phone: [facility] 03-19-2024 10:08-0500 Diastolic blood pressure 74 mm[Hg] 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 REFERRAL RN Work Phone: [facility] 03-19-2024 10:08-0500 Heart rate 71 /min 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 REFERRAL RN Work Phone: [facility] 03-19-2024 10:08-0500 Respiratory rate 19 /min 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 REFERRAL RN Work Phone: [facility] 03-19-2024 10:08-0500 SaO2% (BldA) [Mass fraction] 99 % 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 REFERRAL RN Work Phone: [facility] 03-19-2024 10:08-0500 Systolic blood pressure 128 mm[Hg] Devi Azaliaholz REFERRAL RN Work Phone: [facility] 02-25-2024 12:04-0500 Body height 168.3 cm Devi Fátimahholz REFERRAL RN Work Phone: [facility] 02-25-2024 12:04-0500 Body mass index (BMI) [Ratio] 29.38 kg/m2 Devi Azaliaholz REFERRAL RN Work Phone: [facility] 02-25-2024 12:04-0500 Body temperature 98.49 [degF] Devi Fátimahholz REFERRAL RN Work Phone: [facility] 02-25-2024 12:04-0500 Body weight 83.19 kg Devi Azaliaholz REFERRAL RN Work Phone: [facility] 02-25-2024 12:04-0500 Diastolic blood pressure 76 mm[Hg] Devi Aichholz REFERRAL RN Work Phone: [facility] 02-25-2024 12:04-0500 Heart rate 67 /min Devi Aichholz REFERRAL RN Work Phone: [facility] 02-25-2024 12:04-0500 Respiratory rate 19 /min Devi Azaliaholz REFERRAL RN Work Phone: [facility] 02-25-2024 12:04-0500 SaO2% (BldA) [Mass fraction] 100 % Devi Azaliaholz REFERRAL RN Work Phone: [facility] 02-25-2024 12:04-0500 Systolic blood pressure 152 mm[Hg] Devi Aichholz REFERRAL RN Work Phone: [facility] 01-31-2024 11:25-0500 Body height 170.2 cm Erlinda Chopra MD Work Phone: [facility] 01-31-2024 11:25-0500 Body mass index (BMI) [Ratio] 28.5 kg/m2 Erlinda Chopra MD Work Phone: [facility] 01-31-2024 11:25-0500 Body temperature 98.01 [degF] Erlinda Chopra MD Work Phone: [facility] 01-31-2024 11:25-0500 Body weight 82.56 kg Erlinda Chopra MD Work Phone: [facility] 01-31-2024 11:25-0500 Diastolic blood pressure 72 mm[Hg] Erlinda Chopra MD Work Phone: [facility] 01-31-2024 11:25-0500 Heart rate 67 /min Erlinda Chopra MD Work Phone: [facility] 01-31-2024 11:25-0500 Respiratory rate 18 /min Erlinda Chopra MD Work Phone: [facility] 01-31-2024 11:25-0500 SaO2% (BldA) [Mass fraction] 93 % Erlinda Chopra MD Work Phone: [facility] 01-31-2024 11:25-0500 Systolic blood pressure 172 mm[Hg] Erlidna Chopra MD Work Phone: [facility] 01-18-2024 13:41-0500 Body height 168.3 cm Jovany Ovalle DO Work Phone: [facility] 01-18-2024 13:41-0500 Body mass index (BMI) [Ratio] 28.67 kg/m2 Jovany Ovalle DO Work Phone: [facility] 01-18-2024 13:41-0500 Body weight 81.19 kg Jovany Ovalle DO Work Phone: [facility] 01-04-2024 13:51-0500 Body height 168.3 cm Jovany Ovalle DO Work Phone: [facility] 01-04-2024 13:51-0500 Body mass index (BMI) [Ratio] 28.67 kg/m2 Jovany Ovalle DO Work Phone: [facility] 01-04-2024 13:51-0500 Body weight 81.19 kg Jovany Ovalle DO Work Phone: [facility] 12-18-2023 10:53-0400 Body height 168.3 cm Devi Davisz REFERRAL RN Work Phone: [facility] 12-18-2023 10:53-0400 Body mass index (BMI) [Ratio] 28.8 kg/m2 Devidudley Davisz REFERRAL RN Work Phone: [facility] 12-18-2023 10:53-0400 Body temperature 97.11 [degF] Devidudley Shinehsusannaz REFERRAL RN Work Phone: [facility] 12-18-2023 10:53-0400 Body weight 81.56 kg Devidudley Davisz REFERRAL RN Work Phone: [facility] 12-18-2023 10:53-0400 Diastolic blood pressure 72 mm[Hg] Devi Susanz REFERRAL RN Work Phone: [facility] 12-18-2023 10:53-0400 Heart rate 71 /min Devi Fátimahholz REFERRAL RN Work Phone: [facility] 12-18-2023 10:53-0400 Respiratory rate 18 /min Devi Azaliaholz REFERRAL RN Work Phone: [facility] 12-18-2023 10:53-0400 SaO2% (BldA) [Mass fraction] 99 % Devi Azaliaholz REFERRAL RN Work Phone: [facility] 12-18-2023 10:53-0400 Systolic blood pressure 132 mm[Hg] Devi Fátimahholz REFERRAL RN Work Phone: [facility] 11-08-2023 10:19-0400 Body height 168.3 cm Jovany Ovalle DO Work Phone: [facility] 11-08-2023 10:19-0400 Body mass index (BMI) [Ratio] 29.31 kg/m2 Jovany Ovalle DO Work Phone: [facility] 11-08-2023 10:19-0400 Body weight 83.01 kg Jovany Ovalle DO Work Phone: [facility] 10-19-2023 11:06-0400 Body height 168.91 cm [facility] 10-19-2023 11:06-0400 Body mass index (BMI) [Ratio] 28.6 kg/m2 [facility] 10-19-2023 11:06-0400 Body temperature 97.7 [degF] [facility] 10-19-2023 11:06-0400 Body weight 81.7 kg [facility] 10-19-2023 11:06-0400 Diastolic blood pressure 81 mm[Hg] [facility] 10-19-2023 11:06-0400 Heart rate 68 /min [facility] 10-19-2023 11:06-0400 Respiratory rate 16 /min [facility] 10-19-2023 11:06-0400 SaO2% (BldA) [Mass fraction] 95 % [facility] 10-19-2023 11:06-0400 Systolic blood pressure 132 mm[Hg] [facility] 07-12-2023 10:20-0400 Body height 167.6 cm Pacc 2 Work Phone: [facility] 07-12-2023 10:20-0400 Body mass index (BMI) [Ratio] 29.53 kg/m2 Pacc 2 Work Phone: [facility] 07-12-2023 10:20-0400 Body temperature 97.39 [degF] Pacc 2 Work Phone: [facility] 07-12-2023 10:20-0400 Body weight 83 kg Pacc 2 Work Phone: [facility] 07-12-2023 10:20-0400 Diastolic blood pressure 73 mm[Hg] Pacc 2 Work Phone: [facility] 07-12-2023 10:20-0400 Heart rate 75 /min Pacc 2 Work Phone: [facility] 07-12-2023 10:20-0400 Respiratory rate 16 /min Pacc 2 Work Phone: [facility] 07-12-2023 10:20-0400 SaO2% (BldA) [Mass fraction] 99 % Pacc 2 Work Phone: [facility] 07-12-2023 10:20-0400 Systolic blood pressure 156 mm[Hg] Pacc 2 Work Phone: [facility] 06-19-2023 08:23-0400 Body height 167.6 cm Rebeca Martinez MD Work Phone: [facility] 06-19-2023 08:23-0400 Body mass index (BMI) [Ratio] 30.51 kg/m2 Rebeca Martinez MD Work Phone: [facility] 06-19-2023 08:23-0400 Body temperature 98.01 [degF] Rebeca Martinez MD Work Phone: [facility] 06-19-2023 08:23-0400 Body weight 85.73 kg Rebeca Martinez MD Work Phone: [facility] 06-19-2023 08:23-0400 Diastolic blood pressure 77 mm[Hg] Rebeca Martinez MD Work Phone: [facility] 06-19-2023 08:23-0400 Heart rate 101 /min Rebeca Martinez MD Work Phone: [facility] 06-19-2023 08:23-0400 SaO2% (BldA) [Mass fraction] 99 % Rebeca Martinez MD Work Phone: [facility] 06-19-2023 08:23-0400 Systolic blood pressure 178 mm[Hg] Rebeca Martinez MD Work Phone: [facility] Encounters Encounter Date Encounter Type Care Provider Facility Start: 03-19-2024 End: 03-19-2024 Bamboo flowsheet Devi Vieyraarnulfo REFERRAL RN Work Phone: [facility] Start: 03-19-2024 End: 03-19-2024 Bamboo flowsheet Devi Vieyraarnulfo REFERRAL RN Work Phone: [facility] Start: 03-19-2024 End: 03-19-2024 Office outpatient visit 25 minutes Devi Vieyraarnulfo REFERRAL RN Work Phone: [facility] Comment on above: Primary hypertension (CMS/HCC) (Primary Dx); Centrilobular emphysema (CMS/HCC); Asymptomatic bilateral carotid artery stenosis; Dysphagia, unspecified type; BMI 29.0-29.9,adult; Iron deficiency anemia, unspecified iron deficiency anemia type; Cigarette smoker; Thyroid nodule (CMS/HCC); Statin intolerance Start: 02-25-2024 End: 02-25-2024 Bamboo flowsheet Devi Vieyraarnulfo REFERRAL RN Work Phone: [facility] Start: 02-25-2024 End: 02-25-2024 Bamboo flowsheet Devi Vieyraarnulfo REFERRAL RN Work Phone: [facility] Start: 02-25-2024 End: 02-25-2024 Office outpatient visit 15 minutes Devi Fátimagavinoarnulfo REFERRAL RN Work Phone: [facility] Comment on above: Acute non-recurrent frontal sinusitis (Primary Dx); COPD exacerbation (CMS/HCC); Tobacco user; Pulmonary emphysema, unspecified emphysema type (CMS/HCC); Rash Start: 02-25-2024 End: 02-25-2024 ambulatory DEVI THANIA Not Available Start: 02-08-2024 End: 02-08-2024 Bamboo flowsheet Jovany Ovalle DO Work Phone: [facility] Start: 02-08-2024 End: 02-08-2024 Bamboo flowsheet Jovany Ovalle DO Work Phone: [facility] Start: 02-08-2024 End: 02-08-2024 ambulatory JOVANY OVALLE Not Available Start: 01-31-2024 End: 01-31-2024 Office outpatient visit 25 minutes Erlinda Chopra MD Work Phone: [facility] Comment on above: Peripheral vascular disease ([facility]-HCC) (Primary Dx); Bilateral carotid artery stenosis; Cigarette smoker Start: 01-18-2024 End: 01-18-2024 Bamboo flowsheet Jovany Ovalle DO Work Phone: [facility] Start: 01-18-2024 End: 01-18-2024 Bamboo flowsheet Jovany Trejo Bistephen DO Work Phone: [facility] Start: 01-18-2024 End: 01-18-2024 Office outpatient visit 25 minutes Jovany Ovalle DO Work Phone: [facility] Comment on above: Gastroesophageal ref lux disease with esophagitis, unspecified whether hemorrhage (Primary Dx); Dysphagia, unspecified type Start: 01-18-2024 End: 01-18-2024 ambulatory JOVANY OVALLE Not Available Start: 01-10-2024 End: 01-10-2024 Patient encounter procedure 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 Work Phone: [facility] Work Phone: Start: 01-10-2024 End: 01-10-2024 ambulatory 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 Work Phone: [facility] Work Phone: Start: 01-04-2024 End: 01-04-2024 Bamboo flowsheet Jovany Ovalle DO Work Phone: [facility] Start: 01-04-2024 End: 01-04-2024 Bamboo flowsheet Jovany Ovalle DO Work Phone: [facility] Start: 01-04-2024 End: 01-04-2024 Office outpatient visit 15 minutes Jovany Ovalle DO Work Phone: [facility] Comment on above: Dysphagia, unspecifi ed type (Primary Dx); History of mastoidectomy Start: 01-04-2024 End: 01-04-2024 ambulatory JOVANY OVALLE Not Available Start: 12-18-2023 End: 12-18-2023 Bamboo flowsheet Devi Thania REFERRAL RN Work Phone: [facility] Start: 12-18-2023 End: 12-18-2023 Bamboo flowsheet Devi Thania REFERRAL RN Work Phone: [facility] Start: 12-18-2023 End: 12-18-2023 Patient encounter procedure Devi Thania REFERRAL RN Work Phone: [facility] Comment on above: Encounter for subseq uent annual wellness visit (AWV) in Medicare patient (Primary Dx); Tobacco user; Primary hypertension (CMS/HCC); Pulmonary emphysema, unspecified emphysema type (CMS/HCC); Asymptomatic bilateral carotid artery stenosis; Dysphagia, unspecified type; Iron deficiency anemia, unspecified iron deficiency anemia type Start: 12-18-2023 End: 12-18-2023 ambulatory DEVI FÁTIMAGavinoARNULFO Not Available Start: 12-11-2023 End: 12-11-2023 Clinisync Result Encounter Devi Thania REFERRAL RN Work Phone: [facility] Unsolicited Start: 12-11-2023 End: 12-11-2023 Clinisync Result Encounter Devi Fátimagavinoarnulfo REFERRAL RN Work Phone: [facility] Unsolicited Start: 12-10-2023 End: 12-10-2023 Orders Only 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 REFERRAL RN Work Phone: [facility] Comment on above: Primary hypertension (CMS/HCC) (Primary Dx); Anemia, unspecified type Start: 11-08-2023 End: 11-08-2023 Bamboo flowsheet Jovany Ovalle DO Work Phone: [facility] Start: 11-08-2023 End: 11-08-2023 Bamboo flowsheet Jovany Ovalle DO Work Phone: [facility] Start: 11-08-2023 End: 11-08-2023 Office outpatient visit 25 minutes Jovany Ovalle DO Work Phone: [facility] Comment on above: History of mastoidec michael (Primary Dx); Decreased hearing of both ears; Dysfunction of Eustachian tube, unspecified laterality; Tobacco abuse Start: 11-08-2023 End: 11-08-2023 ambulatory JOVANY OVALLE Not Available Start: 10-19-2023 End: 10-19-2023 ambulatory [facility] Work Phone: Start: 10-19-2023 End: 10-19-2023 Patient encounter procedure [facility] Work Phone: Start: 10-18-2023 End: 10-18-2023 Telephone encounter Rebeca Martinez MD Work Phone: Neurosurgery Comment on above: Received Outside Med ical Records Start: 09-03-2023 Telephone encounter Berny Martinez MD Work Phone: Neurology Comment on above: Rivet Catcher - O ther Start: 08-27-2023 Telephone encounter Berny Martinez MD Work Phone: Neurology Comment on above: Patient Question Start: 08-23-2023 End: 08-23-2023 ambulatory REBECA MARTINEZ Facility:[facility] Start: 08-23-2023 End: 08-23-2023 Patient encounter procedure Rebeca Martinez MD Work Phone: [facility] Comment on above: Cervical vertebral f usion (Primary Dx) Start: 07-30-2023 End: 07-30-2023 ambulatory DEVI MONTEIRO Facility:[facility] Start: 07-24-2023 End: 07-24-2023 ambulatory DEVI MONTEIRO Not Available Start: 07-16-2023 End: 07-16-2023 ambulatory DEVI AZALIAHOLZ Not Available Start: 07-13-2023 Telephone encounter Clovis Gunderson APRN.CNP Work Phone: Ambulatory Surgery Comment on above: Medication Problem Start: 07-12-2023 End: 07-12-2023 Admission to establishment [facility] [place] [facility] Work Phone: Pre Anesthesia Start: 07-12-2023 End: 07-12-2023 ambulatory CLOVIS GUNDERSON Facility:[facility] Start: 07-12-2023 End: 07-12-2023 Anesthesia consultation [facility] Work Phone: Pre Anesthesia Comment on [...] Start: 07-12-2023 End: 07-12-2023 Preprocedural examination done [facility] Work Phone: [facility] Work Phone: Start: 06-21-2023 End: 06-21-2023 ambulatory DEVI MONTEIRO Not Available Start: 06-20-2023 Telephone encounter Berny Martinez MD Work Phone: Neurology Comment on above: Received Outside Med ical Records Start: 06-19-[address] 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 (Primary Dx); Cervical cord myelomalacia (HCC) Start: 05-14-2023 End: 05-14-2023 ambulatory DEVI SUSANZ Not Available Start: 05-03-2023 End: 05-03-2023 ambulatory JOVANY OVALLE Not Available Start: 04-18-2023 End: 04-18-2023 ambulatory DEVI AICHHOLZ Not Available Start: 04-10-2023 Clinisync Result Encounter Lis a Aichholz REFERRAL RN Work Phone: [facility] Unsolicited Start: 04-10-2023 Clinisync Result Encounter Lis a Aichholz REFERRAL RN Work Phone: [facility] Unsolicited Start: 04-03-2023 End: 04-03-2023 ambulatory DEVI AICHHOLZ Not Available Start: 03-26-2023 End: 03-26-2023 ambulatory DELMY MENA Not Available Start: 07-25-2022 End: 07-26-2022 ambulatory BIOPHARMACEUTICAL REP DEVI AICHHOLZ Facility:[facility] Start: 07-20-2022 End: 07-21-2022 ambulatory BIOPHARMACEUTICAL REP DEVI AICHHOLZ Facility:[facility] Start: 06-11-2022 End: 06-11-[address] BART AL Facility:[facility] Start: 05-24-2022 End: 05-25-[address] SAVAGE OATES Facility:[facility] Start: 03-16-2022 End: 03-17-2022 ambulatory BIOPHARMACEUTICAL REP DEVI AICHSUSANNAZ Facility:[facility] Start: 02-24-2022 End: 02-25-2022 ambulatory BIOPHARMACEUTICAL REP DEVI AICHHOLZ Facility:[facility] Start: 01-02-2022 End: 01-03-2022 ambulatory VENITA MONTEIRO Facility:[facility] Start: 10-29-2021 End: 10-30-[address] SAVAGE OATES Facility:[facility] Start: 07-27-2020 End: 10-31-2022 Patient encounter status Devi Thania REFERRAL RN Work Phone: [facility] Procedures Date Procedure Procedure Detail Performing Clinician Start: 12-11-2023 ALL CBC WITH AUTO DIFF 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 REFERRAL RN Work Phone: Start: 07-12-2023 Antibody screen DIXON MARTINEZ Comment on above: Order Comment: Speci men Type: BLOOD SPECIMEN Ordering Facility: [facility] Address: [address] [place] [address] Performed By: #### 3 [id number], [id number] #### [facility] CLIA [id number] [address] [place] [address] [place] Start: 07-12-2023 Ecg routine ecg w/least 12 lds i&r only Clovis Gunderson MEDICAL ADMINISTRATOR.BIOPHARMACEUTICAL REP Work Phone: Start: 04-10-2023 ALL CBC WITH AUTO DIFF 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 REFERRAL RN Work Phone: Start: 01-02-2022 PSA screening VENITA MONTEIRO Comment on above: Performed By: #### F T4, PSASC ####[place] [id number]. Bethany Killian H/O: surgery History of mastoidectomy Linda Ovalle DO Work Phone: H/O: surgery History of mastoidectomy Linda Ovalle DO Work Phone: Plan of Treatment Date Care Activity Detail Author Start: 02-17-2029 DTaP,Tdap and Td Vac cines (3 - Td or Tdap) DTaP,Tdap and Td Vaccines (3 - Td or Tdap) [facility] Start: 02-17-2029 Urine microalbumin profile DTaP,Tdap,Td Vaccine (3 - Td or Tdap) [facility] Start: 08-07-2026 Diabetes Screening Diabetes Screenin g [facility] Start: 07-11-2026 Diabetes Screening Diabetes Screenin g [facility] Start: 01-30-2025 End: 01-30-2025 US Carotid arteries - bilateral Vas carotid duplex bilateral Vascular Ultrasound Routine Peripheral vascular disease ([facility]) Bilateral carotid artery stenosis Cigarette smoker Expected: 01/30/2025 (Approximate), Expires: 01/30/2025 [facility] Work Phone: Comment on above: Expected: 01/30/2025 (Approximate), Expires: 01/30/2025 Start: 06-19-2024 End: 06-19-2024 Patient encounter procedure 06/19/2024 9:40 AM EDT Office Visit [facility] [address] [place] [phone] 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 NP [address] [place] [id number] [facility] Start: 05-09-2024 End: 05-09-2024 [facility] Start: 03-19-2024 End: 03-19-2025 CBC W Auto Differential panel - Blood CBC and differential Lab Routine Iron deficiency anemia, unspecified iron deficiency anemia type Expected: 03/19/2024 (Approximate), Expires: 03/19/2025 [facility] Work Phone: Comment on above: Expected: 03/19/2024 (Approximate), Expires: 03/19/2025 Start: 03-19-2024 End: 03-19-2025 Comprehensive metabolic 2000 panel - Serum or Plasma Comprehensive metabolic panel Lab Routine Primary hypertension ([facility]/HCC) Expected: 03/19/2024 (Approximate), Expires: 03/19/2025 [facility] Comment on above: Expected: 03/19/2024 (Approximate), Expires: 03/19/2025 Start: 03-19-2024 End: 03-19-2025 Ferritin [Mass/volume] in Serum or Plasma Ferritin Lab Routine Iron deficiency anemia, unspecified iron deficiency anemia type Expected: 03/19/2024 (Approximate), Expires: 03/19/2025 [facility] Comment on above: Expected: 03/19/2024 (Approximate), Expires: 03/19/2025 Start: 03-19-2024 End: 03-19-2025 Iron + transferrin + TIBC Iron + transferrin + TIBC Lab Routine Iron deficiency anemia, unspecified iron deficiency anemia type Expected: 03/19/2024 (Approximate), Expires: 03/19/2025 [facility] Comment on above: Expected: 03/19/2024 (Approximate), Expires: 03/19/2025 Start: 03-19-2024 End: 03-19-2025 Lipid 1996 panel - Serum or Plasma Lipid panel Lab Routine Asymptomatic bilateral carotid artery stenosis Expected: 03/19/2024 (Approximate), Expires: 03/19/2025 [facility] Comment on above: Expected: 03/19/2024 (Approximate), Expires: 03/19/2025 Start: 03-19-2024 End: 03-19-2025 Microalbumin/Creatinine panel in random Urine Microalbumin / creatinine, urine ratio Lab Routine Primary hypertension (CMS/HCC) Expected: 03/19/2024 (Approximate), Expires: 03/19/2025 [facility] Comment on above: Expected: 03/19/2024 (Approximate), Expires: 03/19/2025 Start: 03-19-2024 End: 03-19-2025 Thyrotropin [Units/volume] in Serum or Plasma TSH Lab Routine Thyroid nodule (CMS/HCC) Expected: 03/19/2024 (Approximate), Expires: 03/19/2025 [facility] Comment on above: Expected: 03/19/2024 (Approximate), Expires: 03/19/2025 Start: 03-19-2024 End: 03-19-2025 Thyroxine (T4) free [Mass/volume] in Serum or Plasma T4, free Lab Routine Thyroid nodule (CMS/HCC) Expected: 03/19/2024 (Approximate), Expires: 03/19/2025 [facility] Comment on above: Expected: 03/19/2024 (Approximate), Expires: 03/19/2025 Start: 03-19-2024 End: 03-19-2025 Urinalysis complete panel - Urine Urinalysis with reflex microscopic (clean catch) Lab Routine Primary hypertension (CMS/HCC) Cigarette smoker Expected: 03/19/2024 (Approximate), Expires: 03/19/2025 [facility] Comment on above: Expected: 03/19/2024 (Approximate), Expires: 03/19/2025 Start: 03-19-2024 End: 03-19-2024 Patient encounter procedure 03/19/2024 10:30 AM EST Office Visit [facility] [address] [place] [address] 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, SHANNON [address] [place] [phone] Asymptomatic bilateral carotid artery stenosis (Primary Dx); Centrilobular emphysema (CMS/HCC); Primary hypertension (CMS/HCC); Dysphagia, unspecified type; BMI 29.0-29.9,adult; Iron deficiency anemia, unspecified iron deficiency anemia type; Cigarette smoker [facility] Comment on above: Asymptomatic bilater al carotid artery stenosis (Primary Dx); Centrilobular emphysema (CMS/HCC); Primary hypertension (CMS/HCC); Dysphagia, unspecified type; BMI 29.0-29.9,adult; Iron deficiency anemia, unspecified iron deficiency anemia type; Cigarette smoker Start: 03-18-2024 End: 03-18-2024 Patient encounter procedure 03/18/2024 9:20 AM EST Office Visit [facility] [address] [place] [address] 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 NP [address] [place] [phone] [facility] Start: 02-25-2024 End: 02-25-2024 Patient encounter procedure 02/25/2024 11:45 AM EST Office Visit [facility] [address] [place] [address] 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, SHANNON [address] [place] [address] Arrived [facility] Comment on above: Arrived Start: 02-21-2024 End: 02-21-2024 Patient encounter procedure [facility] General Comment on above: Cervical vertebral f usion [M43.22] 6 MONTH FOLLOW UP Start: 02-08-2024 End: 02-08-2024 Patient encounter procedure [facility] Comment on above: Arrived Start: 01-31-2024 End: 01-30-2025 US.doppler Extremity arteries - bilateral for physiologic artery study Vas art doppler lwr bilat mult lev/PVR Vascular Ultrasound Routine Peripheral vascular disease ([facility]) Bilateral carotid artery stenosis Cigarette smoker Expected: 01/31/2024, Expires: 01/30/2025 [facility] Comment on above: Expected: 01/31/2024 , Expires: 01/30/2025 Start: 01-18-2024 End: 01-18-2024 Patient encounter procedure [facility] Comment on above: Arrived Start: 01-05-2024 Tobacco Screening Tobacco Screening [facility] Start: 01-04-2024 End: 01-04-2024 Patient encounter procedure 01/04/2024 2:00 PM EST Office Visit [facility] [address] [place] [address] Jovany Ovalle, [address] [place] [address] Dysphagia, unspecified type [facility] Comment on above: Dysphagia, unspecifi ed type Start: 01-04-2024 End: 01-03-2025 RF Esophagus Views W barium contrast PO FL MODIFIED BARIUM SWALLOW Imaging STAT Dysphagia, unspecified type Expected: 01/04/2024, Expires: 01/03/2025 [facility] Comment on above: Expected: 01/04/2024 , Expires: 01/03/2025 Start: 01-04-2024 End: 01-03-2025 RF Pharynx and Cervical esophagus Views W barium contrast PO FL esophagus pharynx Imaging STAT Dysphagia, unspecified type Expected: 01/04/2024 (Approximate), Expires: 01/03/2025 [facility] Work Phone: Comment on above: Expected: 01/04/2024 (Approximate), Expires: 01/03/2025 Start: 12-18-2023 End: 12-18-2023 Patient encounter procedure [facility] Comment on above: Tobacco user (Primar y Dx) Start: 12-10-2023 End: 12-09-2024 Basic metabolic 1998 panel - Serum or Plasma Basic metabolic panel Lab Routine Primary hypertension (CMS/HCC) Expected: 12/10/2023 (Approximate), Expires: 12/09/2024 [facility] Comment on above: Expected: 12/10/2023 (Approximate), Expires: 12/09/2024 Start: 12-10-2023 End: 12-09-2024 CBC W Auto Differential panel - Blood CBC and differential Lab Routine Anemia, unspecified type Expected: 12/10/2023 (Approximate), Expires: 12/09/2024 [facility] Work Phone: Comment on above: Expected: 12/10/2023 (Approximate), Expires: 12/09/2024 Start: 12-10-2023 End: 12-09-2024 Iron + transferrin + TIBC Iron + transferrin + TIBC Lab Routine Anemia, unspecified type Expected: 12/10/2023 (Approximate), Expires: 12/09/2024 [facility] Comment on above: Expected: 12/10/2023 (Approximate), Expires: 12/09/2024 Start: 11-08-2023 End: 11-08-2023 Patient encounter procedure 11/08/2023 10:15 AM EDT Office Visit [facility] [address] [place] [address] Jovany Ovalle, DO [address] [place] [address] Arrived [facility] Comment on above: Arrived Start: 10-28-2023 Influenza vaccination Influenza Vacc ine (#1) [facility] Start: 08-25-2023 Diabetes Screening Diabetes Screenin g [facility] Start: 08-23-2023 End: 08-23-2023 Patient encounter procedure 08/23/2023 11:40 AM EDT Office Visit [facility] [address] [place] [address] [place] [address] [place] [address] post op- 08/05 ARTHRODESIS ANTERIOR DISC PREP DISCECTOMY OSTEOPHYTECTOMY & DECOMPRESS NERVE ROOTS C' BELOW C2 [facility] Comment on above: post op- 10 ARTHRO DESIS ANTERIOR DISC PREP DISCECTOMY OSTEOPHYTECTOMY & DECOMPRESS NERVE ROOTS C' BELOW C2 Start: 08-06-2023 End: 08-06-2023 Admission to same day surgery center 08/06/2023 1:00 PM EDT - 08/06/2023 4:25 PM EDT Surgery [facility] Operating Room [address] [address] [place] [address] [place] [address] ARTHRODESIS ANTERIOR DISC PREP DISCECTOMY OSTEOPHYTECTOMY & DECOMPRESS NERVE ROOTS C' BELOW C2 [facility] Operating Room Comment on above: [...] physician 08/06/2023 1:00 PM EDT Hospital Encounter [facility] Operating Room [address] [address] [place] [address] [place] [address] 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.020] [facility] Operating Room Comment on above: [...] EDT Office [place] [address] SURGICAL REGISTRATION APPT [phone] [facility] Comment on above: SURGICAL REGISTRATIO N APPT [phone] Start: 07-12-2023 End: 10-11-2023 TYPE AND SCREEN,30 DAY [facility] Work Phone: Comment on above: Expected: 07/12/2023 , Expires: 10/11/2023 Start: 07-12-2023 End: 07-12-2023 Admission to establishment 07/12/2023 11:00 AM EDT PAT Pre Anesthesia [address] [place] [address] [facility] [address] [place] [address] Pre admission testing surgery 08/05 Pre Anesthesia Comment on above: Pre admission testin g surgery 08/05 Start: 05-03-2023 End: 05-03-2023 Patient encounter procedure 05/03/2023 9:15 AM EST [facility] [address] [place] [address] Jovany Ovalle, DO [address] [place] [address] [facility] [place] Start: 04-24-2023 Covid-19 Vaccine ( season) Covid-19 Vaccine () [facility] Start: 02-26-2023 Advance Directive Discussion Advance Directive Discussion [facility] Start: 02-26-2023 Behavioral Health Screening Behavioral Health Screening [facility] Start: 2006 Fall Risk Screening Fall Risk Screen [facility] Start: 2001 RSV Vaccine (1 - 1-d ose 60+ series) RSV Vaccine (1 - 1-dose 60+ series) [facility] Start: 07-09-1959 Anxiety Screening Anxiety Screening [facility] Start: 07-09-1959 Depression Screening Depression Scre ening [facility] Start: 07-09-1959 Spirometry Spirometry [facility] Start: 1953 Depression Screening Depression Scre ing [facility] ECG COMPLETE ECG COMPLETE ECG 07/12/2023 10:37 AM EDT [facility] End: 07-18-2024 XR CERV OTHER 4V AP/LAT/FLX/EXT XR CERV OTHER 4V AP/LAT/FLX/EXT Radiology Routine Cervical disc disorder with myelopathy of mid-cervical region 1 Occurrences starting 06/19/2023 until 07/18/2024 [facility] Work Phone: Comment on above: 1 Occurrences starti ng 06/19/2023 until 07/18/2024 XR CERV OTHER 4V AP/LAT/FLX/EXT XR CERV OTHER 4V AP/LAT/FLX/EXT Radiology Routine Cervical disc disorder with myelopathy of mid-cervical region 06/19/2023 10:23 AM EDT [facility] End: 09-21-2024 XR Cervical spine AP and Lateral XR CERV GENERAL 2V AP/LAT Radiology Routine Cervical vertebral fusion 1 Occurrences starting 08/23/2023 until 09/21/2024 [facility] Work Phone: Comment on above: 1 Occurrences starti ng 08/23/2023 until 09/21/2024 Immunizations Immunization Date Immunization Notes Care Provider Nehal rasmussen 12-10-2023 influenza, high dose seasonal, preservative-free Jovany Bigreggenzandar DO Work Phone: [facility] 12-10-2023 influenza virus vacc ine, unspecified formulation Devi Aichholz REFERRAL RN Work Phone: [facility] 12-22-2022 Influenza, Seasonal, Quadrivalent, Adjuvanted Jovany Ovalle DO Work Phone: [facility] 12-22-2022 influenza virus vacc ine, unspecified formulation eRbeca Martinez MD Work Phone: [facility] 08-15-2022 Pneumococcal Conjuga te PCV 20 Devi Aichholz REFERRAL RN Work Phone: [facility] 12-26-2021 Influenza, High-dose Seasonal, Quadrivalent, Preservative Free Devi Aichholz REFERRAL RN Work Phone: [facility] 12-21-2020 influenza, injectabl e, quadrivalent, preservative free Devi Aichholz REFERRAL RN Work Phone: [facility] 12-01-2020 Influenza, Seasonal, Quadrivalent, Adjuvanted Devi Aichholz REFERRAL RN Work Phone: [facility] 11-16-2019 influenza, high dose seasonal, preservative-free Devi Aichholz REFERRAL RN Work Phone: [facility] 09-06-2019 hepatitis A vaccine, adult dosage Devi Aichholz REFERRAL RN Work Phone: [facility] 07-04-2019 zoster vaccine recombinant Devi Aichholz REFERRAL RN Work Phone: [facility] 04-08-2019 zoster vaccine recombinant Devi Aichholz REFERRAL RN Work Phone: [facility] 02-17-2019 hepatitis A vaccine, adult dosage Devi Aichholz REFERRAL RN Work Phone: [facility] 02-17-2019 tetanus toxoid, redu renan diphtheria toxoid, and acellular pertussis vaccine, adsorbed Devi Aichholz REFERRAL RN Work Phone: [facility] 12-03-2018 Seasonal trivalent influenza vaccine, adjuvanted, preservative free Devi Aichholz REFERRAL RN Work Phone: [facility] 08-14-2016 tetanus toxoid, redu renan diphtheria toxoid, and acellular pertussis vaccine, adsorbed Devi Aichholz REFERRAL RN Work Phone: [facility] 12-13-2015 pneumococcal polysaccharide vaccine, 23 valent Devi Aichholz REFERRAL RN Work Phone: [facility] 12-08-2015 influenza, injectabl e, quadrivalent, preservative free Devi Aichholz REFERRAL RN Work Phone: [facility] 12-09-2014 influenza, injectabl e, quadrivalent, preservative free Devi Aichholz REFERRAL RN Work Phone: [facility] 10-07-2014 pneumococcal conjuga te vaccine, 13 valent Devi Aichholz REFERRAL RN Work Phone: [facility] 08-11-2014 pneumococcal conjuga te vaccine, 13 valent Devi Aichholz REFERRAL RN Work Phone: [facility] Payers Date Payer Category Payer Self-pay 2022 Private Health Insurance [id number] 2022 Unknown AARP AARP [id number] 2022-Present [address] [place] [address] [id number] 2018 Managed Care Other (unspecified) [facility] [id number] 2006 Medicare [id number] 1959 Medicare [id number] 1959 Unknown [id number] 1941 Unknown [id number] 2.16.840.1.213345.3.579.2 .59 1941 Unknown [id number] 2..840.1.030593.3.579.2 .59 1941 Unknown [id number] 2.840.1.964984.3.579.2 .59 1941 Unknown [id number] 2.16.840.1.619922.3.579.2 .593 1941 Unknown [id number] 2.16.840.1.829451.3.579.2 .59 1941 Unknown [id number] 2.16.840.1.787467.3.579.2 .59 1941 Unknown [id number] 2.16.840.1.947381.3.579.2 .59 1941 Unknown [id number] 2.16.840.1.235185.3.579.2 .593 1941 Unknown [id number] 2.16.840.1.179187.3.579.2 .1258 1941 Unknown [id number] 2.16.840.1.964396.3.579.2 .1258 1941 Unknown [id number] 2.16.840.1.448113.3.579.2 .1258 1941 Unknown [id number] 2.16.840.1.634747.3.579.2 .1258 1941 Unknown [id number] 2.16.840.1.505381.3.579.2 .1258 1941 Unknown [id number] 2.16.840.1.651023.3.579.2 .1258 1941 Unknown [id number] 2.16.840.1.631433.3.579.2 .1258 1941 Unknown [id number] 2.16.840.1.644116.3.579.2 .1258 1941 Unknown [id number] 2.16.840.1.258761.3.579.2 .1258 1941 Unknown [id number] 2.16.840.1.959975.3.579.2 .1258 1941 Unknown [id number] 2.16.840.1.350365.3.579.2 .1258 1941 Unknown [id number] 2.16.840.1.928470.3.579.2 .1258 1941 Unknown [id number] 2.16.840.1.470683.3.579.2 .1258 1941 Unknown [id number] 2.16.840.1.703042.3.579.2 .1259 Unknown [id number] 2.16.840.1.391817.3.579.2 .531 Social History Date Type Detail Facility Start: 09-19-2022 End: 11-08-2023 Tobacco smoking status NHIS Smokes tobacco daily [facility] Start: 02-26-1957 History of tobacco use Cigarette Smo ker [facility] Start: 09-19-2022 End: 12-18-2023 Cigarettes smoked current (pack per day) - Reported 0.5 [facility] Start: 09-19-2022 End: 11-08-2023 Tobacco use and exposure Smokeless tobacco non-user [facility] Start: 03-26-2023 End: 03-19-2024 Alcohol intake Lifetime non-drinker (finding) [facility] Start: 03-26-2023 End: 12-18-2023 Tobacco use panel [facility] Start: 09-19-2022 Tobacco Comment 11-20 cigarettes/day [facility] Start: 09-19-2022 Alcohol Comment Caffeine 3-4 c ups per day [facility] Start: 1940 Sex Assigned At Male [facility] Start: 08-30-2022 Gender identity Identifies as male gender (finding) [facility] National Score (1-10 0), lower number is lower risk 63 [facility] Start: 1940 Sex Assigned At Not on file [facility] Start: 07-12-2023 End: 08-23-2023 Alcohol intake Ex-drinker (finding) [facility] Work Phone: Start: 10-01-2014 End: 01-11-2024 Sex Male (finding) [facility] Start: 11-18-2020 Tobacco smoking stat us NHIS Occasional tobacco smoker [facility] Start: 11-18-2020 Tobacco Comment half pack a day [facility] Medical Equipment Procedure Code Equipment Code Equipment Origin al Text Equipment Identifier Dates Spacer Avs 4d 7m m Spinal Bone Plug - [id number] Start: 08-06-2023 Spacer Avs 4d 7m m Spinal Bone Plug - [id number] Start: 08-06-2023 Plate Aviator Titanium 28x17.4x2.5mm Bone Level 2 Automatic Lock System - [id number] Start: 08-06-2023 Screw Aviator 4m m Titanium 14mm Bone Variable Angle Self Drill Nonsterile - [id number] Start: 08-06-2023 [facility] Photofix 0.8x8cm Rpl [id number] - [id number] Start: 08-23-2020 Comment on above: Description: LEFT CA ROTID ARTERY Clinical Notes 05-17-2023 to 03-19-2024 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 NP - 03/19/2024 12:06 PM Osmar Monteiro NP - 03/19/2024 12:04 PM YAHIR GUTIERREZ - 03/19/2024 10:30 AM Osmar Monteiro NP - 03/19/2024 10:30 AM ESTPatient Instructions Note Date & Type Note Facility 03-19-2024 History of Presen t illness Narrative Associated Problem(s): Statin intolerance Severe leg pain and weakness when taking statin in the past, will not take this Associated Problem(s): Thyroid nodule (CMS/HCC) Will check labs Need a refill on the lisinopril Images from the original note were not included. Sunni Blackburn is a 83 y.o. male presents with chief complaint of COPD HPI: COPD: breathing is back to baseline, no wheeze, no acute dypsnea, occ cough Hypertension This is a chronic problem. The current episode started more than 1 year ago. The problem is unchanged. The problem is controlled. Associated symptoms include peripheral edema and shortness of breath (at times). Pertinent negatives include no blurred vision, chest pain, neck pain or orthopnea. There are no associated agents to hypertension. Risk factors for coronary artery disease include male gender, sedentary lifestyle and smoking/tobacco exposure. Past treatments include MONIKA inhibitors and calcium channel blockers. The current treatment provides significant improvement. There are no compliance problems. Hypertensive end-organ damage includes PVD. There is no history of angina, kidney disease or left ventricular hypertrophy. SUBJECTIVE: MEDICATIONS: Current Outpatient Medications Medication Instructions albuterol HFA 90 mcg/act inhaler 2 puffs, Inhalation, Every 6 hours PRN amLODIPine (NORVASC) 10 mg, Oral, Daily Xhqianv-Nsjnpmbokbx-Xfqafwgybm (Breztri Aerosphere) 160-9-4.8 MCG/ACT aerosol 2 puffs, Inhalation, 2 times daily fluorouracil (Efudex) 5 % cream 1 application , Nightly lisinopril 40 mg, Oral, Daily Multiple Vitamins-Minerals (PreserVision AREDS 2) capsule as directed Orally omeprazole (PRILOSEC) 40 mg, Oral, Daily before breakfast, Do not crush or chew. ALLERGIES: Allergies Allergen Reactions Amoxicillin Nausea Only [...] nosebleeds, sneezing, trouble swallowing and voice change. Eyes: Negative for blurred vision, pain, discharge and visual disturbance. Respiratory: Positive for shortness of breath (at times). Negative for apnea, chest tightness and wheezing. Cardiovascular: Positive for leg swelling. Negative for chest pain and orthopnea. Gastrointestinal: Negative for abdominal distention, blood in stool, constipation and diarrhea. Genitourinary: Negative for decreased urine volume, difficulty urinating, dysuria and hematuria. Musculoskeletal: Negative for neck pain. Skin: Negative for color change. Neurological: Negative for dizziness, tremors and seizures. Psychiatric/Behavioral: Negative for agitation, decreased concentration, hallucinations, [...] of left ear 10/31/2022 Dermatitis 01/18/2024 Dyslipidemia ([facility]) 07/27/2020 Elevated BUN Elevated serum creatinine Emphysema/COPD ([facility]) 05/14/2023 Essential hypertension ([facility]) 07/27/2020 Hand injury right History of cholesteatoma 05/14/2023 Hx R cholesteatoma Leg cramps Mixed hearing loss 10/31/2022 Peripheral vascular disease ([facility]) 07/27/2020 Sudden left hearing loss 10/31/2022 Thyroid nodule ([facility]) 07/19/20=reviewed findings with pt./benign, follow up 1 year. 07/17: stable nodules Tobacco user 05/14/2023 Past Surgical History: Procedure Laterality Date CAROTID ENDARTERECTOMY Left 08/23/2020 CERVICAL FUSION 08/06/2023 ESOPHAGOSCOPY W/ DILATION 01/29/2024 INNER EAR SURGERY 1989 had two inner [...] in his brother. OBJECTIVE: Visit Vitals BP 128/74 (BP Location: Left arm, Patient Position: Sitting, BP Cuff Size: Adult long) Pulse 71 Temp 98.5 F (Temporal) Resp 19 Wt 182 lb SpO2 99% BMI 29.15 kg/m Smoking Status Every Day BSA 1.97 m Physical Exam Vitals and nursing note reviewed. Constitutional: Appearance: Normal appearance. HENT: Head: Normocephalic. Right Ear: External ear normal. Left Ear: External ear normal. Nose: Nose normal. Mouth/Throat: Mouth: Mucous membranes are moist. Pharynx: Oropharynx is clear. Eyes: Extraocular Movements: Extraocular movements intact. Conjunctiva/sclera: Conjunctivae normal. Neck: Vascular: Carotid bruit (right) present. Cardiovascular: Rate and Rhythm: Normal rate and regular rhythm. Pulses: Normal pulses. Heart sounds: Normal heart sounds. No murmur heard. Pulmonary: Effort: Pulmonary effort is normal. No respiratory distress. Breath sounds: Normal breath sounds. No wheezing or rales. Abdominal: General: Bowel sounds are normal. There is no distension. Palpations: Abdomen is soft. There is no mass. Tenderness: There is no abdominal tenderness. There is no guarding. Musculoskeletal: Cervical back: Neck supple. Right lower leg: Edema present. Left lower leg: Edema present. Comments: L>R, non pitting Neg homans Skin: General: Skin is warm and dry. Capillary Refill: Capillary refill takes 2 to 3 seconds. Neurological: General: No focal deficit present. Mental Status: He is alert. Psychiatric: Mood and Affect: Mood normal. Behavior: Behavior normal. Thought Content: Thought content normal. Judgment: Judgment normal. ASSESSMENT AND PLAN: No follow-ups on file. Problem List Items Addressed This Visit Thyroid nodule (CMS/HCC) Will check labs Relevant Orders TSH T4, free BMI 29.0-29.9,adult Asymptomatic bilateral carotid artery stenosis - Primary Current meds: none Follows with Dr Barclay, carotids done in 02/18. Right external 57%, internals <50% Relevant Orders Lipid panel Emphysema/COPD (CMS/HCC) Current meds: breztri, albuterol Primary hypertension (CMS/HCC) Please check blood pressure daily and record DASH diet Limit caffeine Take medication as directed Contact office if chest pain, pressure, dizziness, shortness of breath, swelling legs Recommend slow position changes Current meds: amlodipine, and lisinopril Relevant Orders Microalbumin / creatinine, urine ratio Urinalysis with reflex microscopic (clean catch) Comprehensive metabolic panel Dysphagia, unspecified Has seen ENT, is doing better DONNA (iron deficiency anemia) Low iron levels, could not tolerate oral iron supplements, wanted IV iron infusion This was ordered: Venofer was ordered in 12/19, had an infusion X1 Will recheck labs Relevant Orders CBC and differential Iron + transferrin + TIBC Ferritin Cigarette smoker The patient has been advised of the risks of continued smoking: stroke, [place], all forms of cancer, lung disease, and . Options for quitting smoking include: cold turkey, hypnosis, acupuncture, nicotine replacement meds (gum, lozenges, and patches), Buproprion, and Varenicline. At this time pt is encouraged to evaluate their goals for wanting to quit smoking, and reach out to provider when ready to start this process Relevant Orders Urinalysis with reflex microscopic (clean catch) Statin intolerance Severe leg pain and weakness when taking statin in the past, will not take this Associated Problem(s): Cigarette smoker The patient has been advised of the risks of continued smoking: stroke, [place], all forms of cancer, lung disease, and . Options for quitting smoking include: cold turkey, hypnosis, acupuncture, nicotine replacement meds (gum, lozenges, and patches), Buproprion, and Varenicline. At this time pt is encouraged to evaluate their goals for wanting to quit smoking, and reach out to provider when ready to start this process Associated Problem(s): DONNA (iron deficiency anemia) Low iron levels, could not tolerate oral iron supplements, wanted IV iron infusion This was ordered: Venofer was ordered in 12/19, had an infusion X1 Will recheck labs Associated Problem(s): Dysphagia, unspecified Has seen ENT, is doing better Associated Problem(s): Primary hypertension (CMS/HCC) Please check blood pressure daily and record DASH diet Limit caffeine Take medication as directed Contact office if chest pain, pressure, dizziness, shortness of breath, swelling legs Recommend slow position changes Current meds: amlodipine, and lisinopril Associated Problem(s): Asymptomatic bilateral carotid artery stenosis Current meds: none Follows with Dr Barclay, carotids done in 02/18. Right external 57%, internals <50% Associated Problem(s): Emphysema/COPD ([facility]) Current meds: breztri, albuterol documented in this encounter [facility] 03-19-2024 Instructions 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 NP - 03/19/2024 10:30 AM EST Check labs, order given Fu in 3 months documented in this encounter [facility] 02-25-2024 History of Presen t illness Narrative Associated Problem(s): Rash Non specific, no recent detergent or shower soaps no new meds Does not look like zoster, or scabies either Could be eczema At this pont we will see if steroids help resolve it or not If not better contact office Associated Problem(s): Tobacco user The patient has been advised of the risks of continued smoking: stroke, [place], all forms of cancer, lung disease, and . Options for quitting smoking include: cold turkey, hypnosis, acupuncture, nicotine replacement meds (gum, lozenges, and patches), Buproprion, and Varenicline. At this time pt is encouraged to evaluate their goals for wanting to quit smoking, and reach out to provider when ready to start this process Associated Problem(s): Acute non-recurrent frontal sinusitis Will treat for suspected sinus infection Discussed differentials: RSV, flu, COVID, or viral URI, offered testing, however would be outside the window of treatment with antivirals, does not want tested Will fu if not better Associated Problem(s): COPD exacerbation ([facility]) Concern w recent URI/sinus starting with early exacerbation Add steroids and atb Fu if not better Associated Problem(s): Emphysema/COPD ([facility]) Requested refill of breztri Pt started having a cough about 3-4 days ago and has progressed. Pt states the only symptoms he has is sinus, drainage, wheezing, sob, coughing, pt states he coughs up clear- yellow mucus. Images from the original note were not included. Sunni Blackburn is a 83 y.o. male presents with chief complaint of No chief complaint on file. HPI: URI The current episode started in the past 7 days. The problem has been gradually worsening. There has been no fever. Associated symptoms include congestion, coughing, a rash, sinus pain and wheezing. Pertinent negatives include no chest pain, diarrhea, dysuria, ear pain, headaches, joint pain, nausea, plugged ear sensation, sneezing, sore throat, swollen glands or vomiting. Rash This is a new problem. The current episode started 1 to 4 weeks ago. The problem is unchanged. The rash is diffuse (trunk only ant and post). The rash is characterized by dryness, redness and itchiness. He was exposed to nothing. Associated symptoms include congestion and coughing. Pertinent negatives include no diarrhea, eye pain, facial edema, fatigue, joint pain, sore throat or vomiting. Past treatments include nothing. SUBJECTIVE: MEDICATIONS: Current Outpatient Medications Medication Instructions albuterol HFA 90 mcg/act inhaler 2 puffs, Inhalation, Every 6 hours PRN amLODIPine (NORVASC) 10 mg, Oral, Daily fluorouracil (Efudex) 5 % cream 1 application , Nightly lisinopril 40 mg, Oral, Daily Multiple Vitamins-Minerals (PreserVision AREDS 2) capsule as directed Orally omeprazole (PRILOSEC) 40 mg, Oral, Daily before breakfast, Do not crush or chew. ALLERGIES: Allergies Allergen Reactions Amoxicillin Nausea Only Amoxicillin-Pot Clavulanate GI intolerance Bacitracin Other Reaction(s): Unknown Bacitracin-Polymyxin B Swelling Montelukast Other Reaction(s): facial swelling Neomycin Other Reaction(s): Unknown Other other Polymyxin B Other Reaction(s): Unknown Statins MUSCLE WEAKNESS Benzalkonium Chloride Rash Blisters/scarring on skin. REVIEW OF SYMPTOMS: Review of Systems Constitutional: Negative for activity change, appetite change, fatigue and unexpected weight change. HENT: Positive for congestion and sinus pain. Negative for ear pain, nosebleeds, sneezing, sore throat, trouble swallowing and voice change. Eyes: Negative for pain, discharge and visual disturbance. Respiratory: Positive for cough and wheezing. Negative for apnea and chest tightness. Cardiovascular: Negative for chest pain and leg swelling. Gastrointestinal: Negative for abdominal distention, blood in stool, constipation, diarrhea, nausea and vomiting. Genitourinary: Negative for decreased urine volume, difficulty urinating, dysuria and hematuria. Musculoskeletal: Negative for joint pain. Skin: Positive for rash. Negative for color change. Neurological: Negative for [...] of left ear 10/31/2022 Dermatitis 01/18/2024 Dyslipidemia ([facility]) 07/27/2020 Elevated BUN Elevated serum creatinine Emphysema/COPD ([facility]) 05/14/2023 Essential hypertension ([facility]) 07/27/2020 Hand injury right History of cholesteatoma 05/14/2023 Hx R cholesteatoma Leg cramps Mixed hearing loss 10/31/2022 Peripheral vascular disease ([facility]) 07/27/2020 Sudden left hearing loss 10/31/2022 Thyroid nodule ([facility]) 07/19/20=reviewed findings with pt./benign, follow up 1 year. 07/17: stable nodules Tobacco user 05/14/2023 Past Surgical History: Procedure Laterality Date CAROTID ENDARTERECTOMY Left 08/23/2020 CERVICAL FUSION 08/06/2023 ESOPHAGOSCOPY W/ DILATION 01/29/2024 INNER EAR SURGERY 1989 had two inner [...] in his brother. OBJECTIVE: Visit Vitals BP 152/76 (BP Location: Left arm, Patient Position: Sitting, BP Cuff Size: Adult long) Pulse 67 Temp 98.5 F (Temporal) Resp 19 Ht 5' 6.25 Wt 183 lb 6.4 oz SpO2 100% BMI 29.38 kg/m Smoking Status Every Day BSA 1.97 m Physical Exam Vitals and nursing note reviewed. Constitutional: General: He is not in acute distress. Appearance: Normal appearance. He is not ill-appearing or toxic-appearing. HENT: Head: Normocephalic. Right Ear: Tympanic membrane, ear canal and external ear normal. Left Ear: Tympanic membrane, ear canal and external ear normal. Nose: Congestion present. No rhinorrhea. Comments: Sinus congestion and tenderness Mouth/Throat: Mouth: Mucous membranes are moist. Pharynx: Oropharynx is clear. No oropharyngeal exudate or posterior oropharyngeal erythema. Eyes: Extraocular Movements: Extraocular movements intact. Conjunctiva/sclera: Conjunctivae normal. Cardiovascular: Rate and Rhythm: Normal rate and regular rhythm. Pulses: Normal pulses. Heart sounds: Normal heart sounds. Pulmonary: Effort: Pulmonary effort is normal. Breath sounds: Rhonchi present. No wheezing. Abdominal: General: Bowel sounds are normal. Palpations: Abdomen is soft. Tenderness: There is no abdominal tenderness. There is no guarding. Hernia: No hernia is present. Musculoskeletal: Cervical back: Neck supple. Right lower leg: Edema present. Left lower leg: Edema present. Comments: Trace pedal bilat Lymphadenopathy: Cervical: No cervical adenopathy. Skin: General: Skin is warm and dry. Capillary Refill: Capillary refill takes 2 to 3 seconds. Findings: Rash (non specific dry mild erythematous macular rash, no vesicles, no open areas, non specific pattern) present. Neurological: General: No focal deficit present. Mental Status: He is alert. Psychiatric: Mood and Affect: Mood normal. Behavior: Behavior normal. Thought Content: Thought content normal. Judgment: Judgment normal. ASSESSMENT AND PLAN: No follow-ups on file. Problem List Items Addressed This Visit COPD exacerbation ([facility]) Concern w recent URI/sinus starting with early exacerbation Add steroids and atb Fu if not better Relevant Medications predniSONE (Deltasone) 20 MG tablet doxycycline (Vibra-Tabs) 100 MG tablet benzonatate (Tessalon) 200 MG capsule Tobacco user The patient has been advised of the risks of continued smoking: stroke, [place], all forms of cancer, lung disease, and . Options for quitting smoking include: cold turkey, hypnosis, acupuncture, nicotine replacement meds (gum, lozenges, and patches), Buproprion, and Varenicline. At this time pt is encouraged to evaluate their goals for wanting to quit smoking, and reach out to provider when ready to start this process Emphysema/COPD ([facility]) Requested refill of breztri Relevant Medications Dbnltti-Mcqszhjripz-Tjdprdavmf (Breztri Aerosphere) 160-9-4.8 MCG/ACT aerosol Acute non-recurrent frontal sinusitis - Primary Will treat for suspected sinus infection Discussed differentials: RSV, flu, COVID, or viral URI, offered testing, however would be outside the window of treatment with antivirals, does not want tested Will fu if not better Relevant Medications doxycycline (Vibra-Tabs) 100 MG tablet benzonatate (Tessalon) 200 MG capsule Rash Non specific, no recent detergent or shower soaps no new meds Does not look like zoster, or scabies either Could be eczema At this pont we will see if steroids help resolve it or not If not better contact office documented in this encounter [facility] 02-25-2024 Instructions 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 NP - 02/25/2024 11:45 AM EST Steroids for lung inflammation, atb for sinus infection, tessalon pearls for cough If worsening in symptoms go to the ER documented in this encounter [facility] 01-31-2024 Evaluation + Plan note Associated Problem(s): Cigarette smoker Counseled him smoking cessation for 3 minutes. [facility] 01-31-2024 Miscellaneous Notes Associated Problem(s): Cigarette smoker Counseled him smoking cessation for 3 minutes. Associated Problem(s): Peripheral vascular disease ([facility]) We will get PVR. Aspirin and Plavix. Counseled him on smoking cessation as well. Associated Problem(s): Carotid stenosis Carotid duplex ultrasound. Continue aspirin Plavix and statin. documented in this encounter [facility] 01-31-2024 Evaluation + Plan note Associated Problem(s): Peripheral vascular disease (CMS-HCC) We will get PVR. Aspirin and Plavix. Counseled him on smoking cessation as well. [facility] 01-31-2024 Evaluation + Plan note Associated Problem(s): Carotid stenosis Carotid duplex ultrasound. Continue aspirin Plavix and statin. [facility] 01-31-2024 History of Presen t illness Narrative Images from the original note were not included. To: Nannette Long, MEDICAL ADMINISTRATOR-BIOPHARMACEUTICAL REP HPI: Sunni Blackburn is a 83 y.o. [...] 08/23/2020 Performed by Jamie Newton MD at [facility] EXTERNAL EAR SURGERY 2 EYE SURGERY PATCH ANGIOPLASTY CAROTID Left 08/23/2020 Performed by Jamie Newton MD at [facility] TONSILLECTOMY VASECTOMY Social and Family History: [...] up testing vas art doppler lwr bilat mult lev/. Diagnoses and all orders for this visit: Peripheral vascular disease ([facility]) Bilateral carotid artery stenosis Cigarette smoker Erlinda Chopra MD, FLY, RPVI, FSVS, FACS [facility] [employer] [facility] This note was created with the assistance of a speech recognition program. While intending to generate a timely document that accurately reflects the content of the visit, no guarantee can be provided that every grammatical or spelling mistake has been or will be identified or corrected. Thank you for your understanding. documented in this encounter [facility] 01-31-2024 Instructions Erlinda Chopra MD - 01/31/2024 11:30 AM EST Are You Ready To Kick The Habit? Free Tobacco Cessation Resources [facility] Services [facility] Tobacco Treatment Centers provide all employees with free tobacco cessation services that include: Counseling to understand nicotine addiction Education about medications that can help you successfully quit Assistance with developing a plan to quit Call to set up an individual appointment or find out when group classes will be held: [facility] [place]: [phone] [facility]: [phone] [facility]: [phone] [facility]: [phone] Quit Smoking Action Plan and Resources [facility] offers an eight-week, online smoking cessation plan to all [facility] employees, regardless of whether [place] is your medical insurance provider. Go to www.[email or web address]/employeewell ness and click the Health Risk Assessment and Resources link to get started. In the Explain My Surgery menu, click Action Plans instead of Health Risk Assessment to access the Quit Smoking Action Plan. Additional smoking cessation resources are also available to all [facility] employees on the [employer] web page at www.[employer]/quit smoking. [place] Tobacco Cessation Program If [place] is your medical insurance provider, there are more free resources available to you, including: No copays or deductibles on local tobacco cessation counseling services to help you quit Prescription assistance for tobacco cessation medications to help you quit For details about the tobacco cessation program available to [place] members, go to www.[employer] (Search: Tobacco Cessation Program). [place] Tobacco Quit Line 4-384-BJQB-NOW ( ) is a toll-free, telephonic service that helps [place] residents quit smoking and using tobacco. It is staffed by experts who tailor a quit plan for you and provide you with advice. [place] Tobacco Quit Line 7-365-FCYE-NOW ( ) is a toll-free, telephonic service that helps [place] residents quit smoking and using tobacco. It is staffed by experts who tailor a quit plan for you and provide you with advice. Two weeks of nicotine replacement therapy may be provided at no charge, if needed. Additional Resources These national organizations also offer free information and resources to help you quit tobacco: [place] [employer]--www.cancer.org/healthy/ stayawayfromtobacco [place] [employer]--www.heart.org (Search: Quit Smoking) Centers for Disease Control and Prevention--www.cdc.gov/tobacco [place] [employer]--www.lungusa.org documented in this encounter [facility] 01-18-2024 History of Presen t illness Narrative [...] of left ear 10/31/2022 Dermatitis 01/18/2024 Dyslipidemia (CMS/HCC) 07/27/2020 Elevated BUN Elevated serum creatinine Emphysema/COPD (CMS/HCC) 05/14/2023 Essential hypertension (CMS/HCC) 07/27/2020 Hand injury right History of cholesteatoma 05/14/2023 Hx R cholesteatoma Leg cramps Mixed hearing loss 10/31/2022 Peripheral vascular disease ([facility]/HCC) 07/27/2020 Sudden left hearing loss 10/31/2022 Thyroid nodule ([facility]/HCC) 07/19/20=reviewed findings with pt./benign, follow up 1 [...] disability and . documented in this encounter [facility] 01-04-2024 History of Presen t illness Narrative [...] Chronic myringitis of left ear 10/31/2022 Dyslipidemia ([facility]/HCC) 07/27/2020 Elevated BUN Elevated serum creatinine Emphysema/COPD ([facility]) 05/14/2023 Essential hypertension ([facility]) 07/27/2020 Hand injury right History of cholesteatoma 05/14/2023 Hx R cholesteatoma Leg cramps Mixed hearing loss 10/31/2022 Peripheral vascular disease ([facility]/HCC) 07/27/2020 Sudden left hearing loss 10/31/2022 Thyroid nodule ([facility]) 07/19/20=reviewed findings with pt./benign, follow up 1 [...] a regular basis documented in this encounter [facility] 12-18-2023 History of Presen t illness Narrative [...] from the original note were not included. Sunni Blackburn is a 83 y.o. male presents with chief complaint of No chief complaint on file. HPI: Diet: variety Activity: not regular Mental Health Concerns: no Falls in the last year: yes 2-3 Still driving: yes Do you pay your bills: yes Any hearing problems: hearing aids Any Vision problems: macular degeneration Any Hospitalizations in the last year: no except for neck cone chocolate dipper: eye doctor (nathanael), no dentist (dentures), ear (Jonas), vascular (Yvette) HCPOA/Living Will:yes Concerns: no Hypertension This is [...] Chronic myringitis of left ear 10/31/2022 Dyslipidemia ([facility]) 07/27/2020 Elevated BUN Elevated serum creatinine Emphysema/COPD ([facility]) 05/14/2023 Essential hypertension ([facility]) 07/27/2020 Hand injury right History of cholesteatoma 05/14/2023 Hx R cholesteatoma Leg cramps Mixed hearing loss 10/31/2022 Peripheral vascular disease ([facility]) 07/27/2020 Sudden left hearing loss 10/31/2022 Thyroid nodule ([facility]) 07/19/20=reviewed findings with pt./benign, follow up 1 [...] of the risks of continued smoking: stroke, WI, all forms of cancer, lung disease, and [...] of the risks of continued smoking: stroke, [place], all forms of cancer, lung disease, and . Options for quitting smoking include: cold turkey, hypnosis, acupuncture, nicotine replacement meds (gum, lozenges, and patches), Buproprion, and Varenicline. At this time pt is encouraged to evaluate their goals for wanting to quit smoking, and reach out to provider when ready to start this process documented in this encounter [facility] 11-08-2023 History of Presen t illness Narrative [...] to quit smoking. documented in this encounter [facility] 10-19-2023 Evaluation note Diagnosis Onset Date Resolution Dermatitis acute October 18, 2 024 11:00am [facility] Work Phone: 1(340) 476-583008-22-2024 Telephone encounter Note* Telephone Encounter - Jerry Delvalle RN - 10/18/2023 11:41 AM EDT noted [facility]08-22-2024 Miscellaneous Notes* Telephone Encounter - Jerry Delvalle RN - 10/18/2023 11:41 AM EDT noted * Telephone Encounter - Isaías Bonilla - 10/18/2023 11:20 AM EDT Received outside medical records from [facility], discharge notes, in chart for review. documented in this encounter[facility] Telephone encounter Note * Telephone Encounter - Isaías Bonilla - 10/18/2023 11:20 AM EDT Received outside medical records from [facility], discharge notes, in chart for review. [facility]2024 Telephone encounter Note* Telephone Encounter - Jerry Delvalle RN - 09/03/2023 2:49 PM EDT Printed for review & signature [facility]2024 Miscellaneous Notes* Telephone Encounter - Jerry Delvalle RN - 09/03/2023 2:49 PM EDT Printed for review & signature * Telephone Encounter - Danay Rayo - 09/03/2023 2:42 PM EDT [facility] PT Initial Exam report scanned to [facility] for review and completion documented in [facility] encounter[facility] Telephone encounter Note * Telephone Encounter - Danay Rayo - 09/03/2023 2:42 PM EDT [facility] PT Initial Exam report scanned to [facility] for review and completion [facility]07-01-2024 Miscellaneous Notes* Telephone Encounter - Jermaine Granado RN - 08/27/2023 9:45 AM EDT Called and spoke with patient. Answered all questions. Patient stated he was unaware that PT was ordered for him. Wants to complete PT at [facility]. PT fax number [phone]. Faxed to number with confirmation fax. * Telephone Encounter - Danay Rayo - 08/27/2023 8:36 AM EDT Pt phoned asking if there were any restrictions he should follow. Please call and advise Pt phone [phone] documented in this encounterTri[facility]24 Telephone encounter Note * Telephone Encounter - Jermaine Granado RN - 08/27/2023 9:45 AM EDT Called and spoke with patient. Answered all questions. Patient stated he was unaware that PT was ordered for him. Wants to complete PT at [facility]. PT fax number [phone]. Faxed to number with confirmation fax. [facility]07-01-2024 Telephone encounter Note* Telephone Encounter - Danay Rayo - 08/27/2023 8:36 AM EDT Pt phoned asking if there were any restrictions he should follow. Please call and advise Pt phone [phone] [facility]06-27-2024 NoteHNO ID: [id number] Author: REBECA MARTINEZ MD Service: ? Author [...] to fingers. 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 Since surgery [...] to fingers. 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 Since surgery [...] DATE: August 23, 2023 TIME: 11:32 AM PAGER:[facility]06-27-2024 History of Present illness Narrative* Rebeca Martinez [...] to fingers. 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 Since surgery [...] to fingers. 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 Since surgery [...] face time was 20 minutes. SIGNATURE: Rebeca Maritnez MD PATIENT NAME: Sunni Blackburn DATE: August 23, 2023 TIME: 11:32 AM PAGER: documented in this encounterTri[facility] Telephone encounter Note * Telephone Encounter [...] mg for surgery. Thank you Clovis VELASCO [facility]05-17-2024 Miscellaneous Notes* Telephone Encounter - Clovis [...] 81 mg for surgery. Thank you Clovis JHAVERIC documented in this encounterTri[facility]-16-2024 History and physical note * Clovis Gunderson, KAT.BIOPHARMACEUTICAL REP - 07/12/2023 11:00 AM EDT Images from [...] (HCC) Assessment: stable following with PCP Brunilda ocamop, gave him a spacer to trial To [...] have a large neck STOP-Bang Score: 3 [id number] Score: Age: >=75 Sex: male CHF history: No Hypertension history: Yes Stroke/TIA/thromboembolism history: No Vascular disease history: Yes Diabetes history: No [id number] Score: 4 ARISCAT Score: Age: >80 Preoperative [...] Status: Future Standing Expiration Date: 10/11/2023 vit A,C,X-Dbza-Vimdlr (PRESERVISION AREDS) 2,148 mcg-113 mg-45 mg-17.4mg tab [...] over bilateral hand. Noticed minimal right hand satellite project site monitor weakness and dropping things. Noticed minimal imbalance [...] 1024 Medication Sig Last Dose Taking vit A,C,O-Dsal-Jggiav (PRESERVISION AREDS) 2,148 mcg-113 mg-45 mg-17.4mg tab [...] tablet Take 81 mg by mouth. Yes savovnosvq-druhvdua-gychjuvjjz (BREZTRI AEROSPHERE) 160-9-4.8 mcg/actuation HFA aerosol inhaler [...] fevers. Neuro: No history of TIA's, stroke, BUYING AGENT tumor, impaired sensorium, hemiplegia, paraplegia or quadraplegia. [...] LeftCarotid Enterectomy no history of angina, CHF, WI, cardiac surgery or stents. Denies rest pain, [...] Last Resulted: 08/05/20 1:51 PM Received From: [facility] Result Received: 05/17/23 9:43 AM Most recent labs All in Epic Instructions Given to Patient: Instructions located in the after visit summary. Patient given verbal and written preop instructions and voices comprehension and compliance. SIGNATURE: Clovis Gunderson APRN.CNP PATIENT NAME: Sunni Blackburn DATE: 07/12/2023 TIME: 11:06 AM [facility]05-16-2024 History and physical note* Clovis Gunderson [...] have a large neck STOP-Bang Score: 3 [id number] Score: Age: >=75 Sex: male CHF history: No Hypertension history: Yes Stroke/TIA/thromboembolism history: No Vascular disease history: Yes Diabetes history: No [id number] Score: 4 ARISCAT Score: Age: >80 Preoperative [...] Status: Future Standing Expiration Date: 10/11/2023 vit A,C,O-Tbpc-Xlehwx (PRESERVISION AREDS) 2,148 mcg-113 mg-45 mg-17.4mg tab [...] over bilateral hand. Noticed minimal right hand satellite project site monitor weakness and dropping things. Noticed minimal imbalance [...] 1024 Medication Sig Last Dose Taking vit A,C,W-Ohdp-Vrmhrq (PRESERVISION AREDS) 2,148 mcg-113 mg-45 mg-17.4mg tab [...] tablet Take 81 mg by mouth. Yes dnllaayuwl-aczcnnfn-xyfwcfhbjw (BREZTRI AEROSPHERE) 160-9-4.8 mcg/actuation HFA aerosol inhaler [...] fevers. Neuro: No history of TIA's, stroke, BUYING AGENT tumor, impaired sensorium, hemiplegia, paraplegia or quadraplegia. [...] LeftCarotid Enterectomy no history of angina, CHF, WI, cardiac surgery or stents. Denies rest pain, [...] Last Resulted: 08/05/20 1:51 PM Received From: [facility] Result Received: 05/17/23 9:43 AM Most recent labs All in [facility] Instructions Given to Patient: Instructions located in the after visit summary. Patient given verbal and written preop instructions and voices comprehension and compliance. SIGNATURE: Clovis Gunderson APRN.CNP PATIENT NAME: Sunni Blackburn DATE: 07/12/2023 TIME: 11:06 AM documented in this encounterTri[facility]05-08-[facility]24 Instructions* Patient Instructions* Clovis Gunderson APRN.CNP - 07/04/2023 12:47 PM EDT PATIENT PREOPERATIVE INSTRUCTIONS Berny Martinez* has scheduled you for your procedure at this surgery center: [facility]: [phone] [address] [place] [address]. On your scheduled day of surgery, please [...] Procedures: - YOU MUST HAVE A RESPONSIBLE LOCKSTITCH SHOULDER JOINER TAKE YOU HOME. A SUPERVISOR TOY ASSEMBLY OR GREEN CHAIN OFFBEARER CANNOT BE MADE A RESPONSIBLE LOCKSTITCH SHOULDER JOINER. - We recommend that a responsible person stays with you overnight to take care of you. - You cannot stay in a hotel alone after outpatient surgery. You will not be permitted to have yoursurgery, if you do not have someone to take care of you. If you already have an Advance Directive, please fax a copy to [phone] or email to for it to be [...] that day. Clovis VELASCO documented in this encounterTri[facility]04-24-2024 Telephone encounter Note * Telephone Encounter - Liliam Clayton - 06/20/2023 9:49 AM EDT Received Ultrasound of the Carotid report by fax from [facility]. Scanned fax to chart for review. [facility]04-24-2024 Miscellaneous Notes* Telephone Encounter - Liliam Clayton - 06/20/2023 9:49 AM EDT Received Ultrasound of the Carotid report by fax from [facility]. Scanned fax to chart for review. documented in this encounterTrihealth [facility]04-[facility] History of Present illness Narrative* Mitra [...] PATIENT PRESENTS WITH AN IMPLANTABLE OR ATTACHED PROPERTY OFFICER: No RADIOLOGY DEPARTMENT: General X-ray: Exam(s) Completed: Spine X-Ray(s): Cervical AP / LAT / FLEX-EXT PERIPHERAL IV DATA: Not applicable SIGNED BY: RT Jacob(Allison) June 19, 2023 10:16 AM documented in this encounterTrihealth [facility]04-23-2024 NoteHNO ID: [id number] Author: MITRA PAL RT(R) Service: ? Author [...] PATIENT PRESENTS WITH AN IMPLANTABLE OR ATTACHED PROPERTY OFFICER: No RADIOLOGY DEPARTMENT: General X-ray: Exam(s) Completed: Spine X-Ray(s): Cervical AP / LAT / FLEX-EXT PERIPHERAL IV DATA: Not applicable SIGNED BY: RT Jacob(R) June 19, 2023 10:16 [facility]04-23-2024 NoteHNO ID: [id number] Author: JERRY DELVALLE RN Service: ? Author Type: Registered Nurse Type: Progress Notes Filed: 06/19/2023 10:26 Note Text: Neuro SPINE CARE COORDINATION PRE-OP VISIT Met with patient in office for pre op education. Given both written and verbal instructions re : Skin prep, wound care, pain management and post op restrictions. Provided to patient: [facility] Surgery Guide, skin prep supplies, Spine Surgery Pre/post op education packet. Yes Reviewed with patient to report to desk for surgery ? Yes. Reviewed with the patient to call [phone] the day before to get surgery report [...] carotid ultrasound. Copy to onbase. Jerry Delvalle, [facility]04-23-2024 History of Present illness Narrative* Jerry Delvalle RN - 06/19/2023 9:49 AM EDT Neuro SPINE CARE COORDINATION PRE-OP VISIT Met with patient in office for pre op education. Given both written and verbal instructions re : Skin prep, wound care, pain management and post op restrictions. Provided to patient: [facility] Surgery Guide, skin prep supplies, Spine Surgery Pre/post op education packet. Yes Reviewed with patient to report to desk for surgery ? Yes. Reviewed with the patient to call [phone] the day before to get surgery report [...] in bilateral upper extremity Walking difficulty Hand satellite project site monitor weakness HISTORY OF PRESENT ILLNESS: Sunni Blackburn [...] over bilateral hand. Noticed minimal right hand satellite project site monitor weakness and dropping things. Noticed minimal imbalance [...] DERMATOMAL DISTRIBUTION: Not applicable AMBULATORY STATUS: Independent [facility] ANTIPLATELET OR ANTICOAGULATION STATUS: Aspirin 81 mg [...] EC tablet Take 81 mg by mouth. jzmgsftuid-ofhsytby-sszadeajxc (BREZTRI AEROSPHERE) 160-9-4.8 mcg/actuation HFA aerosol inhaler [...] in all muscle groups. Except right hand satellite project site monitor weakness SENSORY: Normal sensory exam GAIT: Stable [...] over bilateral hand. Noticed minimal right hand satellite project site monitor weakness and dropping things. Noticed minimal imbalance [...] tandem walk is a difficulty. Right hand satellite project site monitor is weak. No sensory deficit. Guevara's present [...] the patient or the patient s personal insurance representative. The patient has elected to schedule [...] TIME: 8:50 AM PAGER: documented in this encounterTrihealth [facility]04-23-2024 NoteHNO ID: [id number] Author: REBECA MARTINEZ MD Service: ? Author Type: Physician Type: Progress Notes Filed: 06/19/2023 09:48 Note Text: SPINE SURGERY NEW PATIENT This is an in-person visit. PCP: No primary care provider on file. REFERRING PROVIDER: Ms.Pacenta STEPHENS SUBJECTIVE CHIEF COMPLAINT: Shocklike sensation in bilateral upper extremity Walking difficulty Hand satellite project site monitor weakness HISTORY OF PRESENT ILLNESS: Sunni Blackburn [...] over bilateral hand. Noticed minimal right hand satellite project site monitor weakness and dropping things. Noticed minimal imbalance [...] DISTRIBUTION: Not applicable AMBULATORY STATUS: Independent [facility] ANTIPLATELET OR ANTICOAGULATION STATUS: Aspirin 81 mg [...] EC tablet Take 81 mg by mouth. hjyfwmkuav-dijihvcy-fjtiqevlpj (BREZTRI AEROSPHERE) 160-9-4.8 mcg/actuation HFA aerosol inhaler [...] extremities dry, in (more content not included)... [id number] NoteHNO ID: [id number] Author: NIKKIE NG APRN.BIOPHARMACEUTICAL REP Service: ? Author Type: Nurse Practitioner Type: [...] reported symptoms. Patient should hand carry imaging disc.[facility]03-21-2024 NoteHNO ID: [id number] Author: ?, ?, ? Service: ? Author Type: ? Type: Progress Notes Filed: 05/23/2023 16:15 Note Text: Patient name: Sunni Blackburn Are you being referred by a [facility] Spine Health Provider or Pain Management Provider at [facility]? No If answer is YES please schedule [...] where the MRI/CT/myelogram was completed: [place] [address] MRI/CT/myelogram viewable in Epic: No If not, please provide [phone] to fax in imaging reports for review. Also, please inform patient to hand carry imaging disc to appointment. XR (spine) within 12 months: Yes If YES,? please ask for the name/address of the facility where the XR was completed: [place] [address] Dr. 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, cervical region [facility]* Diagnosis Pre-op testing- Primary Preoperative examination, unspecified 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, 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, cervical region [facility]* Diagnosis 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, 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, cervical region [facility]* Diagnosis Pre-op examination- Primary Preoperative examination, [...] morning of surgery documented [facility] encounter [facility] Diagnosis Cervical vertebral fusion- Primary Other unspecified back disorder documented in this encounter [facility] HospitalEvaluation noteNo assessment information availableHarrison Community [facility] Work Phone: Evaluation note* Diagnosis COPD [...] Tobacco user Tobacco use disorder Primary hypertension (CMS/HCC) Unspecified essential hypertension Pulmonary emphysema, unspecified emphysema [...] Tobacco user Tobacco use disorder Primary hypertension ([facility]) Unspecified essential hypertension Pulmonary emphysema, unspecified emphysema type (CMS/HCC) Asymptomatic bilateral carotid artery stenosis Dysphagia, unspecified type Iron deficiency anemia, unspecified iron deficiency anemia type Dysphagia, unspecified type- Primary History of mastoidectomy Other postprocedural status documented in this encounter [facility]* Diagnosis COPD exacerbation ([facility])- Primary Obstructive chronic bronchitis with exacerbation Centrilobular emphysema (CMS/[facility]) Cervical spinal stenosis- Primary Spinal stenosis in cervical region Centrilobular emphysema (CMS/HCC) Tobacco user Tobacco use disorder Spinal stenosis at L4-L5 level Chronic rhinitis Primary hypertension ([facility])- Primary Unspecified essential hypertension Cervical cord myelomalacia (CMS/[facility]) Cervical spinal stenosis Spinal stenosis in cervical region Numbness and tingling Disturbance of skin sensation Pulmonary emphysema, unspecified emphysema type (CMS/HCC) BMI 29.0-29.9,adult Tobacco user Tobacco use disorder COPD exacerbation ([facility]/HCC)- Primary Obstructive chronic bronchitis with exacerbation Pulmonary emphysema, unspecified emphysema type (CMS/HCC) Tobacco user Tobacco use disorder BMI 29.0-29.9,adult COPD exacerbation ([facility]/HCC)- Primary Obstructive chronic bronchitis with exacerbation BMI 29.0-29.9,adult Tobacco user Tobacco use disorder Encounter for subsequent annual wellness visit (AWV) in Medicare patient- Primary Tobacco user Tobacco use disorder Primary hypertension ([facility]) Unspecified essential hypertension Pulmonary emphysema, unspecified emphysema type (CMS/HCC) Asymptomatic bilateral carotid artery stenosis Dysphagia, unspecified type Iron deficiency anemia, unspecified iron deficiency anemia type Gastroesophageal reflux disease with esophagitis, unspecified whether hemorrhage- Primary Dysphagia, unspecified type documented in this encounter [facility]* Diagnosis Peripheral vascular disease ([facility]-HCC)- Primary Unspecified peripheral vascular disease Bilateral carotid artery stenosis Occlusion and stenosis of carotid artery without mention of cerebral infarction Cigarette smoker Tobacco use disorder [facility] Diagnosis History of mastoidectomy- Primary Other postprocedural status Decreased hearing of both ears Dysfunction of Eustachian tube, unspecified laterality Tobacco abuse Tobacco use disorder documented in this encounter [facility]* [...] Tobacco user Tobacco use disorder Primary hypertension (CMS/HCC) Unspecified essential hypertension Pulmonary emphysema, unspecified emphysema type (CMS/HCC) Asymptomatic bilateral carotid artery stenosis Dysphagia, unspecified type Iron deficiency anemia, unspecified iron deficiency anemia type Acute non-recurrent frontal sinusitis- Primary COPD exacerbation (CMS/HCC) Obstructive chronic bronchitis with exacerbation Tobacco user Tobacco use disorder Pulmonary emphysema, unspecified emphysema type (CMS/HCC) Rash Rash and other nonspecific skin eruption documented in this encounter [facility]* [...] Tobacco user Tobacco use disorder Primary hypertension (CMS/HCC) Unspecified essential hypertension Pulmonary emphysema, unspecified emphysema type (CMS/HCC) Asymptomatic bilateral carotid artery stenosis Dysphagia, unspecified type Iron deficiency anemia, unspecified iron deficiency anemia type Acute non-recurrent frontal sinusitis- Primary COPD exacerbation (CMS/HCC) Obstructive chronic bronchitis with exacerbation Tobacco user Tobacco use disorder Pulmonary emphysema, unspecified emphysema type (CMS/HCC) Rash Rash and other nonspecific skin eruption Primary hypertension (CMS/HCC)- Primary Unspecified essential hypertension Centrilobular emphysema (CMS/HCC) Asymptomatic bilateral carotid artery stenosis Dysphagia, unspecified type BMI 29.0-29.9,adult Iron deficiency anemia, unspecified iron deficiency anemia type Cigarette smoker Tobacco use disorder Thyroid nodule (CMS/HCC) Nontoxic uninodular goiter Statin intolerance [facility] this [facility] Diagnostic Procedure Only (Routine) - Closed Specialty Diagnoses / Procedures Referred By Contac t Referred To Contact XR IMAGING Diagnoses Cervical disc disorder with myelopathy of mid-cervical region Procedures XR CERV OTHER 4V AP/LAT/FLX/EXT RADEX SPINE CERVICAL 4 [place] [address] [place] [address] [place] [id number] Referral ID Status Reason Start Date Expiration Date V isits Requested Visits Authorized [id number] Closed Auto-Generate d Referral 06/19/2023 07/18/2024 1 1 [facility] for referral (narrative)* Outpatient Procedure [...] ECG W/LEAST 12 LDS W/I&R Clovis Gunderson APRN.CNP [address] [place] [address] [facility] [address] [place] [address] Referral ID Status Reason Start Date Expiration Date Visits Requested Visits Authorized [id number] Pending Review Auto-Generat ed Referral 07/12/2023 07/11/2024 1 1 [facility] for referral (narrative)* Diagnostic Procedure Only (Routine) - Authorized Specialty Diagnoses / Procedures Referred By Contac t Referred To Contact XR IMAGING Diagnoses Cervical vertebral fusion Procedures XR CERV GENERAL 2V AP/LAT RADEX SPINE CERVICAL 2 OR 3 [place] [address] [place] [address] [place] [id number] Referral ID Status Reason Start Date Expiration Date Visits Requested Visits Authorized [id number] Authorized Auto-Generat ed Referral 08/23/2023 09/21/2024 1 1 * Physical Therapy (Routine) - Authorized Specialty Diagnoses / Procedures Referred By Contac t Referred To Contact [facility] Diagnoses Cervical vertebral fusion Procedures CONSULT TO PHYSICAL THERAPY PHYSICAL THERAPY EVALUATION HIGH COMPLEX [address] [place] [address] [place] [address] [facility] [place] [address] [place], [place] [id number] Referral ID Status Reason Start Date Expiration Date Visits Requested Visits Authorized [id number] Authorized PCP Requested Referral Auto-Generate d Referral 08/23/2023 08/22/2024 99 99 [facility] Diagnostic Procedure Only (Routine) - Closed Specialty Diagnoses / Procedures Referred By Contac t Referred To Contact XR IMAGING Diagnoses Cervical disc disorder with myelopathy of mid-cervical region Procedures XR CERV OTHER 4V AP/LAT/FLX/EXT RADEX SPINE CERVICAL 4 [place] [address] [place] [id number] [place] [address] Referral ID Status Reason Start Date Expiration Date V isits Requested Visits Authorized [id number] Closed Auto-Generate d Referral 06/19/2023 07/18/2024 1 1 [facility] Summary Purpose Family History Relationship Condition Age at Onset Recorded Date/T kiarra father Unknown Heart disease Unknown mother Unknown Advance Directives Advance Directive Response Recorded Date/ Time Advance Directives No October 19, 2023 10:58am Advance Directive Response Recorded Date/ Time Advance Directives No December 10:44am Reason for Referral Specialty Diagnoses / Procedures Referred By Ayanna t Referred To Contact Diagnoses Pre-op testing Procedures REFER TO PACC - PRE ANESTHESIA CONSULTATION CLINIC OFFICE/OUTPATIENT [facility] 60 MINUTES Rufina Wiggins PA-C [id number] [place] [id number] Referral ID Status Reason Start Date Expiration Date Visits Requested Visits Authorized [id number] Authorized PCP Requested Referral 06/19/2023 06/18/2024 1 [...] section and content) DATE CREATED AUTHOR 08/22/2017 [facility] DATE CREATED AUTHOR AUTHOR'S ORGANIZ ATION 08/04/2022 [facility] DATE CREATED AUTHOR AUTHOR'S ORGANIZ ATION 08/24/2023 [facility] DATE CREATED AUTHOR AUTHOR'S ORGANIZ ATION 10/20/2023 [facility] DATE CREATED AUTHOR AUTHOR'S ORGANIZ ATION 01/15/2024 [facility] DATE CREATED AUTHOR AUTHOR'S ORGANIZ ATION 02/26/2024 [facility] d[facility] Special[facility] [employer] Care Teams (unrecognized sec tion and content) Custom Clothier Relationship Specialty Start Date End Date 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 NP [address] [place] [address] Nurse Practitioner Family Medicine 02/26/22 Custom Clothier Relationship Specialty Start Date End Date 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 CNP [address] [place] [address] Family Medicine 05/17/23 Custom Clothier Relationship Specialty Start Date End Date 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 CNP [address] [place] [address] Family Medicine 05/17/23 Custom Clothier Relationship Specialty Start Date End Date 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 CNP [address] [place] [address] Family Medicine 05/17/23 Custom Clothier Relationship Specialty Start Date End Date 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 CNP [address] [place] [address] PCP - General Family Medicine 07/12/23 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 CNP [address] [place] [address] Family Medicine 05/17/23 Custom Clothier Relationship Specialty Start Date End Date 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, BIOPHARMACEUTICAL REP [address] [place] [address] PCP - General Family Medicine 07/12/23 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, BIOPHARMACEUTICAL REP [address] [place] [address] Family Medicine 05/17/23 Custom Clothier Relationship Specialty Start Date End Date 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, BIOPHARMACEUTICAL REP [address] [place] [address] PCP - General Family Medicine 07/12/23 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, BIOPHARMACEUTICAL REP [address] [place] [address] Family Medicine 05/17/23 Custom Clothier Relationship Specialty Start Date End Date 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, BIOPHARMACEUTICAL REP [address] [place] [address] PCP - General Family Medicine 07/12/23 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, BIOPHARMACEUTICAL REP [address] [place] [address] Family Medicine 05/17/23 Custom Clothier Relationship Specialty Start Date End Date 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, BIOPHARMACEUTICAL REP [address] [place] [address] PCP - General Family Medicine 07/12/23 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, BIOPHARMACEUTICAL REP [address] [place] [address] Family Medicine 05/17/23 Custom Clothier Relationship Specialty Start Date End Date 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, BIOPHARMACEUTICAL REP [address] [place] [address] PCP - General Family Medicine 07/12/23 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, BIOPHARMACEUTICAL REP [address] [place] [address] Family Medicine 05/17/23 Team Status: Active Member Role Status Dates Nannette Long APRN REFERRAL RN-C Primary Care Provider Active Team Status: Inactive Member Role Status Dates Nannette Long APRN REFERRAL RN-C Primary Care Provider Active Start: October 19, 2023 End: October 19, 2023 Jyoti Mendoza APRN Attending Provider Active Start: October 19, 2023 End: October 19, 2023 Custom Clothier Relationship Specialty Start Date End Date Víctor Chadwick MD [address] [place] [address] PCP - General Family Medicine 04/16/23 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 NP [address] [place] [address] Nurse Practitioner Family Medicine 02/26/22 Jovany Ovalle DO [address] [place] [address] Otolaryngology 11/08/23 Custom Clothier Relationship Specialty Start Date End Date Víctor Chadwick MD [address] [place] [address] PCP - General Family Medicine 04/16/23 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 NP [address] [place] [address] Nurse Practitioner Family Medicine 02/26/22 Jovany Ovalle DO [address] [place] [address] Otolaryngology 11/08/23 Custom Clothier Relationship Specialty Start Date End Date Víctor Chadwick MD [address] [place] [address] PCP - General Family Medicine 04/16/23 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 NP [address] [place] [address] Nurse Practitioner Family Medicine 02/26/22 Jovany Ovalle DO [address] [place] [address] Otolaryngology 11/08/23 Custom Clothier Relationship Specialty Start Date End Date Víctor Chadwick MD [address] [place] [address] PCP - General Family Medicine 04/16/23 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 NP [address] [place] [address] Nurse Practitioner Family Medicine 02/26/22 Jovany Ovalle DO [address] [place] [address] Otolaryngology 11/08/23 Custom Clothier Relationship Specialty Start Date End Date Víctor Chadwick MD [address] [place] [address] PCP - General Family Medicine 12/27/23 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 NP [address] [place] [address] Nurse Practitioner Family Medicine 02/26/22 Jovany Ovalle DO [address] [place] [address] Otolaryngology 11/08/23 Custom Clothier Relationship Specialty Start Date End Date Víctor Chadwick MD [address] [place] [address] PCP - General Family Medicine 12/27/23 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 NP [address] [place] [address] Nurse Practitioner Family Medicine 02/26/22 Jovany Ovalle DO [address] [place] [address] Otolaryngology 11/08/23 Team Status: Active Member Role Status Dates 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 Primary Care Provider Active Team Status: Inactive Member Role Status Dates Jovany Ovalle DO Attending Provider Active S tart: January 10, 2024 End: January 10, 2024 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 Primary Care Provider Active Sta rt: January 10, 2024 End: January 10, 2024 Custom Clothier Relationship Specialty Start Date End Date Víctor Chadwick MD [address] [place] [place] [address] PCP - General Family Medicine 12/27/23 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 NP [address] [place] [address] Nurse Practitioner Family Medicine 02/26/22 Jovany Ovalle DO [address] [place] [address] Otolaryngology 11/08/23 Custom Clothier Relationship Specialty Start Date End Date Víctor Chadwick MD [address] [place] [address] PCP - General Family Medicine 12/27/23 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 NP [address] [place] [address] Nurse Practitioner Family Medicine 02/26/22 Jovany Ovalle DO [address] [place] [address] Otolaryngology 11/08/23 Custom Clothier Relationship Specialty Start Date End Date Nannette Long, MEDICAL ADMINISTRATOR-BIOPHARMACEUTICAL REP PCP - General Nurse Practitioner 12/09/18 Custom Clothier Relationship Specialty Start Date End Date Víctor Chadwick MD [address] [place] [address] PCP - General Family Medicine 04/16/23 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 NP [address] [place] [address] Nurse Practitioner Family Medicine 02/26/22 Jovany Ovalle DO [address] [place] [address] Otolaryngology 11/08/23 Custom Clothier Relationship Specialty Start Date End Date Víctor Chadwick MD [address] [place] [address] PCP - General Family Medicine 04/16/23 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 NP [address] [place] [address] Nurse Practitioner Family Medicine 02/26/22 Jovany Ovalle DO [address] [place] [address] Otolaryngology 11/08/23 Custom Clothier Relationship Specialty Start Date End Date Víctor Chadwick MD [address] [place] [address] PCP - General Family Medicine 12/27/23 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 NP [address] [place] [address] Nurse Practitioner Family Medicine 02/26/22 Jovany Ovalle DO [address] [place] [address] Otolaryngology 11/08/23 Custom Clothier Relationship Specialty Start Date End Date Víctor Chadwick MD [address] [place] [address] PCP - General Family Medicine 12/27/23 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 NP [address] [place] [address] Nurse Practitioner Family Medicine 02/26/22 Jovany Ovalle DO [address] [place] [address] Otolaryngology 11/08/23 Custom Clothier Relationship Specialty Start Date End Date Víctor Chadwick MD [address] [place] [address] PCP - General Family Medicine 12/27/23 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 NP [address] [place] [address] Nurse Practitioner Family Medicine 02/26/22 Jovany Ovalle DO [address] [place] [address] Otolaryngology 11/08/23 Custom Clothier Relationship Specialty Start Date End Date Víctor Chadwick MD [address] [place] [address] PCP - General Family Medicine 12/27/23 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 NP [address] [place] [address] Nurse Practitioner Family Medicine 02/26/22 Jovany Ovalle DO [address] [place] [address] Otolaryngology 11/08/23 Source Comments (unrecognize d section and content) In the event this informatio n is protected by the Federal Confidentiality of Alcohol and Drug Abuse Patient Records regulations: The Federal rules restrict any use of the information to criminally investigate or prosecute any alcohol or drug abuse patient.[facility] the event this information is protected by the Federal Confidentiality of Alcohol and Drug Abuse Patient Records regulations: The Federal rules restrict any use of the information to criminally investigate or prosecute any alcohol or drug abuse patient.[facility] the event this information is protected by the Federal Confidentiality of Alcohol and Drug Abuse Patient Records regulations: The Federal rules restrict any use of the information to criminally investigate or prosecute any alcohol or drug abuse patient.[facility] the event this information is protected by the Federal Confidentiality of Alcohol and Drug Abuse Patient Records regulations: The Federal rules restrict any use of the information to criminally investigate or prosecute any alcohol or drug abuse patient.[facility] the event this information is protected by the Federal Confidentiality of Alcohol and Drug Abuse Patient Records regulations: The Federal rules restrict any use of the information to criminally investigate or prosecute any alcohol or drug abuse patient.[facility] Hospital[facility] the event this information is protected by the Federal Confidentiality of Alcohol and Drug Abuse Patient Records regulations: The Federal rules restrict any use of the information to criminally investigate or prosecute any alcohol or drug abuse patient.[facility] Hospital[facility] the event this information is protected by the Federal Confidentiality of Alcohol and Drug Abuse Patient Records regulations: The Federal rules restrict any use of the information to criminally investigate or prosecute any alcohol or drug abuse patient.[facility] Hospital[facility] the event this information is protected by the Federal Confidentiality of Alcohol and Drug Abuse Patient Records regulations: The Federal rules restrict any use of the information to criminally investigate or prosecute any alcohol or drug abuse patient.[facility] Hospital[facility] the event this information is protected by the Federal Confidentiality of Alcohol and Drug Abuse Patient Records regulations: The Federal rules restrict any use of the information to criminally investigate or prosecute any alcohol or drug abuse patient.[facility] Hospital[facility] the event this information is protected by the Federal Confidentiality of Alcohol and Drug Abuse Patient Records regulations: The Federal rules restrict any use of the information to criminally investigate or prosecute any alcohol or drug abuse patient.[facility] Reason for Visit (unrecogniz ed section and content) Reason Comments New Patient Numbness/Tingling Numbness Tingling kaur nds and feet Specialty Diagnoses / Procedures Referred By Contac t Referred To Contact [facility] Diagnoses Spinal stenosis at L4-L5 level Cervical spinal stenosis Procedures AMB REFERRAL TO NEUROSURGERY 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, BIOPHARMACEUTICAL REP [address] [place] [address] Lewis Hernandez MD [facility] [address] [place] [address] Referral ID Status Reason Start Date Expiration Date V isits Requested Visits Authorized [id number] Outside PCP 05/14/2023 11/10/2023 1 1 Specialty Diagnoses / Procedures Referred By Contac t Referred To Contact Diagnoses Pre-op testing Procedures REFER TO PACC - PRE ANESTHESIA CONSULTATION CLINIC OFFICE/OUTPATIENT NEW HIGH MDM 60 MINUTES Rufina Wiggins PA-C [id number] 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 - Other Reason Comments Dysphagia New Problem : Dyspha airam Specialty Diagnoses / Procedures Referred By Contac t Referred To Contact Otolaryngology Diagnoses Dysphagia, unspecified type Procedures DC OFFICE/OUTPATIENT NEW HIGH MDM 60 MINUTES 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, REFERRAL RN [address] [place] [address] Phone: tel: fax: Jovany Ovalle DO [address] [place] [address] Phone: tel: fax: Referral ID Status Reason Start Date Expiration Date V isits Requested Visits Authorized [id number] Closed Specialty Services Required 12/18/2023 06/15/2024 1 0 Reason Comments Dysphagia MBS / Esoph results Reason Comments 1year follow up testing Vas art doppler lwr bilat mult lev/ No testing done prior to appointment. Denies any problems today Reason Comments Mastoid Cleaning 6 month evelyne Reason Comments COPD Goals (unrecognized section and content) Goals may [...] BE BASED ON THE PRIMARY CLINICAL RECORDS. [employer] provides no warranty or guarantee of the accuracy or completeness of information in this document.
[2024-03-20 08:49] LABS: Basophils Percent Auto 0.4 % (0.2-2.0); Eosinophils Absolute Auto 0.3 10^3/uL (0.0-0.7); Hematocrit 38.6 % (42.0-54.0); Hemoglobin 12.6 g/dL (14.0-18.0); Immature Granulocytes Abs Auto 0.04 10^3/uL (0.00-0.03); Immature Granulocytes Pct Auto 0.5 % (0.0-0.5); Lymphocytes Absolute Auto 1.3 10^3/uL (1.2-3.8); Mean Corpuscular HGB Conc 32.6 g/dL (29.9-35.2); Mean Corpuscular Hemoglobin 30.8 pg (25.9-34.0); Mean Corpuscular Volume 94.4 fL (80.0-94.0); Mean Platelet Volume 10.7 fL (9.5-13.5); Monocytes Absolute Auto 0.7 10^3/uL (0.3-0.8); Monocytes Percent Auto 9.5 % (1.7-12.0); Neutrophils Percent Auto 67.6 % (43.0-75.0); Platelet Count 262 10^3/uL (150-450); Red Blood Count 4.09 10^6/uL (4.70-6.10); Red Cell Distribution Width 14.8 % (11.0-15.0); White Blood Count 7.3 10^3/uL (4.0-11.0)
[2024-03-20 08:53] LABS: Bilirubin Urine NEGATIVE (NEGATIVE); Blood Urine NEGATIVE (NEGATIVE); Clarity Urine CLEAR (CLEAR); Color Urine YELLOW (YELLOW); Glucose Urine UA NEGATIVE (NEGATIVE); Ketones Urine NEGATIVE (NEGATIVE); Leukocyte Esterase Urine NEGATIVE (NEGATIVE); Nitrite Urine NEGATIVE (NEGATIVE); Protein Urine NEGATIVE (NEG/TRACE); Specific Gravity Urine 1.025 (1.005-1.025); Urobilinogen Urine 0.2 EU/dL (0.2-1.0)
[2024-03-20 08:59] LABS: Urine Microscopic Indicated NO
[2024-03-20 09:02] LABS: Creatinine Urine Random 116.68 mg/dL (20.00-300.00); Microalbum Creatinine Ratio Ur 11.9 mg/g (0.0-29.9); Microalbumin Urine Random 1.4 mg/dL (<=30.0)
[2024-03-20 09:25] LABS: Alanine Aminotransferase 25 U/L (16-63); Albumin Globulin Ratio 0.9; Albumin Level 3.1 g/dL (3.4-5.0); Alkaline Phosphatase 91 U/L (46-116); Anion Gap 11.7; Aspartate Amino Transferase 15 U/L (15-37); BUN Creatinine Ratio 20.6; Bilirubin Total 0.4 mg/dL (0.2-1.0); Calcium 8.6 mg/dL (8.5-10.1); Carbon Dioxide 28.9 mmol/L (21.0-32.0); Chloride 107 mmol/L (98-107); Chol HDL Ratio 3.4; Cholesterol 218 mg/dL (<=200); Estimated GFR (African America >60 (>=60 mL/min/1.73m^2); Estimated GFR (Non-African Ame >60 (>=60 mL/min/1.73m^2); Globulin 3.3 g/dL; Glucose 88 mg/dL (74-106); HDL Cholesterol 65 mg/dL (40-60); Potassium 4.6 mmol/L (3.5-5.1); Sodium 143 mmol/L (136-145); Thyroid Stimulating Hormone 1.584 uIU/mL (0.358-3.740); Total Protein 6.4 g/dL (6.4-8.2); Triglycerides 87 mg/dL (<=150); VLDL CHOLESTEROL 17.4 mg/dL
[2024-03-20 09:48] LABS: Percent Iron Saturation 41.8 %
[2024-03-21 04:13] LABS: Transferrin 197 mg/dL (149-313)
== END 2024-03-20 08:06 | disposition home or self-care (01) ==
LOC: LAB 08:06
PROVIDERS: PCP Nurse Practitioner; Visit Provider Nurse Practitioner
DX: I65.23 Occlusion and stenosis of bilateral carotid arteries (principal); D50.9 Iron deficiency anemia, unspecified; E04.1 Nontoxic single thyroid nodule; I10 Essential (primary) hypertension; F17.210 Nicotine dependence, cigarettes, uncomplicated
CPT/HCPCS: 36415; 80053; 80061; 81003; 82043; 82570; 82728; 83540; 83550; 84439; 84443; 84466; 85025

== ENCOUNTER 2024-06-20 08:26 | Outpatient (OUT) | payer MEDICARE, SELFPAY ==
[2024-06-20 08:58] LABS: Basophils Percent Auto 0.2 % (0.2-2.0); Eosinophils Absolute Auto 0.1 10^3/uL (0.0-0.7); Eosinophils Percent Auto 1.6 % (0.9-7.0); Hemoglobin 13.3 g/dL (14.0-18.0); Immature Granulocytes Abs Auto 0.05 10^3/uL (0.00-0.03); Immature Granulocytes Pct Auto 0.6 % (0.0-0.5); Lymphocytes Absolute Auto 1.4 10^3/uL (1.2-3.8); Lymphocytes Percent Auto 15.3 % (20.5-60.0); Mean Corpuscular HGB Conc 33.3 g/dL (29.9-35.2); Mean Corpuscular Hemoglobin 30.9 pg (25.9-34.0); Mean Platelet Volume 11.2 fL (9.5-13.5); Monocytes Absolute Auto 0.8 10^3/uL (0.3-0.8); Monocytes Percent Auto 8.9 % (1.7-12.0); Neutrophils Absolute Auto 6.6 10^3/uL (1.4-6.5); Neutrophils Percent Auto 73.4 % (43.0-75.0); Platelet Count 223 10^3/uL (150-450); Red Cell Distribution Width 14.9 % (11.0-15.0)
[2024-06-20 09:13] LABS: Bilirubin Urine NEGATIVE (NEGATIVE); Blood Urine NEGATIVE (NEGATIVE); Clarity Urine CLEAR (CLEAR); Color Urine LT. YELLOW (YELLOW); Glucose Urine UA NEGATIVE (NEGATIVE); Ketones Urine NEGATIVE (NEGATIVE); Leukocyte Esterase Urine NEGATIVE (NEGATIVE); Nitrite Urine NEGATIVE (NEGATIVE); Protein Urine NEGATIVE (NEG/TRACE); Specific Gravity Urine >=1.030 (1.005-1.025); Urobilinogen Urine 0.2 EU/dL (0.2-1.0); pH Urine 5.5 (5.0-9.0)
[2024-06-20 09:15] LABS: Anion Gap 11.9; Carbon Dioxide 26.6 mmol/L (21.0-32.0); Chloride 108 mmol/L (98-107); Estimated GFR (African America >60 (>=60 mL/min/1.73m^2); Estimated GFR (Non-African Ame >60 (>=60 mL/min/1.73m^2); Glucose 92 mg/dL (74-106); Potassium 4.5 mmol/L (3.5-5.1); Sodium 142 mmol/L (136-145)
[2024-06-20 09:17] LABS: Urine Microscopic Indicated NO
[2024-06-20 09:20] LABS: Creatinine Urine Random 98.78 mg/dL (20.00-300.00); Microalbumin Urine Random <1.3 mg/dL (<=30.0)
[2024-06-20 10:38] LABS: Percent Iron Saturation 61.1 %
[2024-06-21 05:06] LABS: Transferrin 195 mg/dL (149-313)
== END 2024-06-20 08:27 | disposition home or self-care (01) ==
LOC: LAB 08:30
PROVIDERS: PCP Nurse Practitioner; Visit Provider Nurse Practitioner
DX: D50.9 Iron deficiency anemia, unspecified (principal); I10 Essential (primary) hypertension; Z12.5 Encounter for screening for malignant neoplasm of prostate
CPT/HCPCS: 36415; 80048; 81003; 82043; 82570; 82728; 83540; 83550; 84466; 85025; G0103

== ENCOUNTER 2024-07-01 08:07 | Outpatient (OUT) | payer MEDICARE, SELFPAY ==
--- NOTE | 2024-07-01 07:45 | NM_ITS ---
Patient Name: SUNNI JACKSON MR#: [id number] : 1940 Exam Date: 07/01/2024 Ordering Doctor: VENITA RAMEY CNP RADIOLOGY REPORT PROCEDURE: NM DARCIE PERF SPECT REST STR COMPARISON: None. INDICATIONS: FATIGUE, HYPERTENSION, DYSPNEA TECHNIQUE: Exam Description: Stress/Rest one day protocol gated SPECT Rest Imagin.9 mCi Tc-99m Cardiolite IV on 07/01/2024 Stress Imaging 30.7 mCi Tc-99m Cardiolite IV on 07/01/2024 Exercise Protocol: 0.4 mg Lexiscan given IV Heart Rate (bpm): Rest: 62 Max: 85 PMHR: 61 Blood Pressure: Rest: 138/80 Max: 144/84 Symptoms: Rest and peak stress ECG findings were pending and the exercise portion of the study was pending per attending physician [facility] . For more details please see separate cardiac stress test report. FINDINGS: QUALITY OF STUDY: Good PERFUSION DEFECT: None LOCATION: SIZE: SEVERITY: TYPE: WALL MOTION: Normal LV SIZE: 82 mL. TID / TCD: 0.8 LVEF: Calculated EF 78%. SUMMARY: Myocardial perfusion imaging study CONCLUSION: Negative nuclear perfusion stress test, no ischemia or infarction Normal left ventricle systolic function, EF 78% No transient ischemic dilatation, TID 0.8 EKG stress result is reported separately Dictated by: Ban Blue MD on 07/02/2024 at 18:50 Approved by: Ban Blue MD on 07/02/2024 at 18:53
[2024-07-01] MEDS: REGADENOSON 0.4 MG/5 ML SYRINGE IV (10:09)
--- NOTE | 2024-07-01 10:28 | PC.NURSE ---
Nursing Note Cardiac Stress Test Reviewed: Medication, allergies and patient history reviewed. Stress Test: [x ] Patient tolerated stress test well. [ ] Patient unable to tolerate walking on treadmill. Switched to Lexiscan stress test. [x ] No chest pain noted per patient [ ] Chest pain that resolved prior to leaving stress lab. [x ] No dyspnea noted. [ ] Dyspnea that resolved prior to leaving stress lab. [ x] Patient left stress lab asymptomatic and hemodynamically stable. [ ] Patient taken to the Emergency Room due to non-resolving symptoms following stress test. [ ] Patient achieved target heart rate. [ ] Patient unable to achieve target heart rate. [ ] Aminophylline administered as reversal agent to Lexiscan (Regadenoson). [ ] Nitro administered. Nursing Comments:Pt had Lexiscan test done. Pt tolerated well. No issues noted. Pt left lab with no symptoms.
--- NOTE | 2024-07-01 11:18 | PM.STRESS ---
Stress Test Stress Test Requesting physician: 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 Procedure: Lexiscan pharmacological stress test General Information: Reason for Stress Test: [Dyspnea on exertion, fatigue, hypertension] Cardiac History and Risk Factors: [Hypertension, dyslipidemia] Resting 12 - Lead Electrocardiogram: Normal sinus rhythm Normal ECG Stress Test: Protocol: [Lexiscan pharmacological stress test] Exercise Capacity: [N/A] Blood Pressure Response: [N/A] Rhythm: [Sinus] ST - Response: [No significant ST-T wave changes] Patient Response: [No significant symptoms] Interpretation: 1. No ischemic EKG changes on Lexiscan pharmacological stress test 2. No significant arrhythmias 3. Nuclear images are to be read, interpreted, and reported separately
== END 2024-07-01 08:08 | disposition home or self-care (01) ==
LOC: NM 08:07
PROVIDERS: PCP Nurse Practitioner; Visit Provider Nurse Practitioner
DX: R06.00 Dyspnea, unspecified (principal); J44.9 Chronic obstructive pulmonary disease, unspecified; R53.83 Other fatigue; I10 Essential (primary) hypertension; F17.210 Nicotine dependence, cigarettes, uncomplicated; E78.2 Mixed hyperlipidemia
CPT/HCPCS: 78452; 93017; A9500; J2785

== ENCOUNTER 2024-07-10 09:40 | Outpatient (OUT) | payer MEDICARE, SELFPAY ==
--- NOTE | 2024-07-10 10:00 | CA_ITS ---
Patient Name: SUNNI JACKSON MR#: [id number] : 1940 Exam Date: 07/10/2024 Ordering Doctor: VENITA RAMEY CNP ECHOCARDIOGRAM REPORT PROCEDURE: CA ECHO DOPPLER COMPLETE INDICATIONS: Fatigue, dyspnea, hypertension, smoker, COPD COMPARISON: None. DESCRIPTION: COMPLETE ECHOCARDIOGRAM Real-time transthoracic echocardiography with 2D, M-mode, spectral and color flow Doppler performed. QUALITY: Technical quality was good. LEFT VENTRICLE: Normal chamber size. Thickened septal wall. Mild concentric hypertrophy. Normal systolic function. LV EF: Estimated left ventricular ejection fraction is 60%. Normal left ventricular ejection fraction, (>55%). DIASTOLIC: Normal diastolic function. ATRIAL SEPTUM: Visually appears intact. LEFT ATRIUM: Normal chamber size. RIGHT ATRIUM: Normal chamber size. RIGHT VENTRICLE: Normal chamber size. Normal right ventricular systolic function. TRICUSPID VALVE: Normal mobility and thickness. No stenosis with mild regurgitation. No evidence of pulmonary hypertension. RVSP 33 mmHg MITRAL VALVE: Normal mobility and thickness. No evidence of mitral valve stenosis. There is no mitral annular calcification. No mitral regurgitation. AORTIC VALVE: Normal trileaflet appearance. Thickened aortic valve. Normal leaflet mobility. No evidence of aortic valve stenosis. No aortic regurgitation. AORTIC ROOT: Normal diameter and appearance, measuring 3.9 cm. Ascending aorta is normal in size, measuring 3.0 cm. PULMONIC VALVE: Normal thickness and mobility. No stenosis. Mild regurgitation. PERICARDIUM: No evidence of pericardial effusion. IVC: Collapses with inspirations. IVC is normal in size. PLEURA: CONCLUSION: 1. Mild concentric left ventricular hypertrophy with normal systolic function. Estimated LVEF is 60%. 2. Normal right ventricular size and systolic function. 3. No significant valvular dysfunction. 4. Normal diastolic function. 5. Normal right-sided pressures. Adult Echocardiography Procedure Report Left Ventricle LVEDD (3.7 - 5.6 cm): 4.05 cm LVESD (2.2 - 4.0 cm): 3.01 cm LVIVS thickness (0.6 - 1.2 cm): 1.23 cm LVPW thickness (0.5 - 1.0 cm): 0.88 cm e': 0.09 m/s E - e': 7.68 LVOT Max Gradient: 3.24 mm[Hg] LVOT Area (cm2): 0.90 m/s Peak Velocity (LVOT): 0.90 m/s Mean Velocity (LVOT): 0.59 m/s LVOT Diameter 2.06 cm Left Atrium LA Volume Index (2D A2C): 24.16 ml/m2 Left Atrium Systolic Dimension: 2.43 cm Mitral Valve MV E to A Ratio: 0.74 Mitral Valve A-Wave Peak Velocity: 0.96 m/s Mitral Valve E-Wave Peak Velocity: 0.71 m/s Right Ventricle Aorta AO Root Diam: 3.88 cm Ascending Ao Diam: 2.95 cm Aortic Valve AoV Area (Peak Mckay): 1.78 cm2, 1.78 cm2 AoV Area (VTI): 1.96 cm2, 1.96 cm2 Peak Velocity(Antegrade Flow): 1.68 m/s Peak Gradient(Antegrade Flow): 11.32 mm[Hg] Mean Velocity(Antegrade Flow): 1.19 m/s Mean Gradient(Antegrade Flow): 6.39 mm[Hg] Velocity Time Integral: 38.67 cm Tricuspid Valve Peak Velocity (Regurgitant Flow): 2.76 m/s, 2.30 m/s Pulmonic Valve Mean Gradient: 1.82 mm[Hg] Mean Velocity: 0.64 m/s Peak Velocity: 0.90 m/s, 0.78 m/s Peak Gradient: 2.45 mm[Hg], 3.27 mm[Hg] Right Atrium Right Atrium Systolic Pressure: 51.76 ml, 51.76 ml Dictated by: Christian Rubio M.D. on 07/10/2024 at 19:22 Approved by: Christian Rubio M.D. on 07/10/2024 at 19:25
--- OUTSIDE RECORDS SUMMARY | 2024-07-10 10:05 | XMS_ITS | CCD ---
Author Organization [facility] Care Team Providers Care Dermatology Procedural Physician Name Role Phone AICHHOLZ, 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 DEVI Attending Unavailable AICHHOLZ, 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 DEVI Consulting Unavailable AICHHOLZ, 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 DEVI Primary Care Unavailable AICHHOLZ, 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 DEVI Admitting Unavailable AICHHOLZ, 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 DEVI Attending Unavailable AICHHOLZ, 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 DEVI Consulting Unavailable AICHHOLZ, 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 DEVI Primary Care Unavailable AICHHOLZ, 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 DEVI Admitting Unavailable DR SAVAGE OATES V Consulting Unavailable ALINE, YULIYA Admitting Unavailable ALINE, YULIYA Attending Unavailable AICHHOLZ, 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 DEVI Primary Care Unavailable ALINE, YULIYA Consulting Unavailable AICHHOLZ, 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 DEVI Admitting Unavailable AICHHOLZ, 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 DEVI Consulting Unavailable AICHHOLZ, 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 DEVI Attending Unavailable AICHHOLZ, 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 DEVI Primary Care Unavailable DR ARTEM MIRANDA Consulting Unavailable AICHHOLZ, 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 DEVI Attending Unavailable AICHHOLZ, 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 DEVI Consulting Unavailable AICHHOLZ, 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 DEVI Primary Care Unavailable AICHHOLZ, 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 DEVI Admitting Unavailable DR BART AL Admitting Unavailabl e SERVANDO, DR BART Craig Attending Unavailabl e DR BART AL Consulting Unavailabl e AICHHOLZ, 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 DEVI Primary Care Unavailable CHRISTEN ARREDONDO Consulting Unavailable SOPHIE SLATER Consulting Unavailable GISELLE GORDILLO Consulting Unavailable DR SAVAGE OATES V Consulting Unavailable AICHHOLZ, 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 DEVI Attending Unavailable AICHHOLZ, 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 DEVI Primary Care Unavailable AICHHOLZ, 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 DEVI Admitting Unavailable AICHHOLZ, 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 DEVI Consulting Unavailable AICHHOLZ, 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 DEVI Attending Unavailable AICHHOLZ, 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 DEVI Consulting Unavailable AICHHOLZ, 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 DEVI Primary Care Unavailable AICHHOLZ, 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 DEVI Admitting Unavailable Aichholz CLINICAL GENETICS LABORATORY CHIEF, Devi Unavailable Aichholz 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, Devi Jess Unavailable Aichholz 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, Devi Mercado Primary Care Provider MICHELLE, GANDHIVARMA Attending Unavail able DEVI MONTEIRO Primary Care Unavailable AICHHOLClau, DEVI MERCADO Primary Care Unavailable CLOVIS GUNDERSON Referring Unavailable AICHHOLClau, DEVI MERCADO Primary Care Unavailable MICHELLE, GANDHIVARMA Referring Unavail able Aichholz CL[employer] GENET[employer] LABORATORY CHIEF, Devi Unavailable Netta GONZALES, Víctor Primary Care Provider Jovany Ovalle DO Unavailable [phone] Víctor Chadwick MD Primary Care Provider Jovany Ovalle DO Attending Provider 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 Primary Care Provider Jovany Ovalle Attending Unavailable Jovany Ovalle Admitting Unavailable 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 Primary Care Unavailable Mabel WO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-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, Nannette R Primary Care Provider DEVI MONTEIRO Primary Care Unavailable MICHELLE, GANDHIVARMA Referring Unavail able MICHELLE, GANDHIVARMA Referring Unavail able AICHDEVI ARREDONDO Referring Unavailable MICHELLE, GANDHIVARMA Attending Unavail able DEVI MONTEIRO Primary Care Unavailable MICHELLE, GANDHIVARMA Referring Unavail able MICHELLE, GANDHIVARMA Attending Unavail able Mabel WO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-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, Nannette R Primary Care Provider Aichholz CL[employer] GENET[employer] LABORATORY CHIEF, Devi Unavailable ERLINDA CHOPRA Attending Unavailable MABEL, NANNETTE R Referring Unavailable MABEL, NANNETTE R Primary Care Unavailable AICHHOLZ, DEVI Attending Unavailable JOVANY OVALLE Attending Unavailable FÁTIMAHHOLClau, DEVI Referring Unavailable AICHHOLZ, DEVI Attending Unavailable AICHHOLClau, DEVI Attending Unavailable JOVANY OVALLE Attending Unavailable AICHHOLZ, DEVI Referring Unavailable AICHHOLZ, DEVI Attending Unavailable AICHHOLZ, DEVI Attending Unavailable BIEDENZANDRA, JOVANY S Attending Unavailable AICHHOLClau, DEVI Referring Unavailable BIEDENBACH, JOVANY Trejo Attending Unavailable AICHHOLZ, DEVI Referring Unavailable BIEDENBACH, JOVANY Trejo Attending Unavailable AICHHOLZ, DEVI Attending Unavailable Allergies Allergy Classification Reported Allergen(s) Allergy Type Date of Onset Reaction(s) Facility Benzalkonium (1 source) Benzalkonium Drug Allergy 4 Rash [facility] (1 source) Bacitracin / Neomycin / Polymyxin B Drug Allergy [address] [facility] Repository (2 sources) black walnut pollen extract; Translations: [LOXSGNA-PWC-EQU REDUCTASE INHIBITORS] Drug Allergy 1 [facility] Repository (20 sources) Amoxicillin Drug Allergy 3 Nausea Only [facility] Healthcare (20 sources) Bacitracin Drug Allergy 1 rash, swelling [facility] Healthcare (20 sources) Bacitracin / Polymyxin B Drug Allergy 3 Swelling [facility] Healthcare (20 sources) HMG-CoA reductase inhibitor Drug Intolerance 1 [facility] Healthcare (20 sources) montelukast Drug Allergy 3 [facility] (20 sources) Neomycin Drug Allergy 1 rash, swelling [facility] (20 sources) Polymyxin B Drug Allergy 1 rash, swelling [facility] (20 sources) Amoxicillin-Pot Clavulanate Drug Allergy 3 GI intolerance [facility] Healthcare (20 sources) Other Propensity to adverse reactions 9 [facility] (10 sources) Benzalkonium; Translations: [BENZALKONIUM CHLORIDE] Drug Allergy 4 Rash [facility] (20 sources) Benzalkonium Drug Allergy 4 Rash [facility] Healthcare (1 source) Bacitracin Drug Allergy 1 [facility] Repository (1 source) Neomycin Drug Allergy 1 [facility] Repository (1 source) polymyxin B Drug allergy (disorder) 1 [facility] Repository (3 sources) bacitracin / neomycin / polymyxin b; Translations: [NEOMYCIN-BACITR ACNZN-POLYMYXNB] Drug Allergy 9 [facility] (2 sources) HMG-CoA reductase inhibitor Propensity to adverse reactions to drug 1 [facility] Medications Current Medications Medication Drug Class(es) Dates Sig (Normalized) Sig (Original) [id number] 200 actuat albuterol 0.09 mg/actuat metered dose [...] Dihydropyridine Calcium Channel Usama Start: 09-24-2023 End: 09-29-2024 take 1 tablet by mouth once daily amLODIPine (Norvasc) 10 MG tablet Indications: Primary hypertension (CMS/HCC) Take 1 tablet (10 mg) by mouth Daily 90 tablet 1 07/01/2024 09/29/2024 Active Start: 12-02-2018 End: 07-12-2023 take 1 tablet by mouth in the morning amLODIPine (NORVASC) 5 mg tablet Take 1 tablet (5 mg total) by mouth in the morning. 0 12/02/2018 Active ascorbic acid 113 mg / beta carotene 7160 mg / cuprous oxide 0.4 mg / dl-alpha tocopheryl acetate 100 unt / zinc oxide 17.4 mg oral tablet (8 sources) Vitamin C take 1 tablet by mouth once daily at breakfast vit A,C,S-Hldp-Ljffab (PRESERVISION AREDS) 2,148 mcg-113 mg-45 mg-17.4mg tab [...] / glycopyrrolate 0.009 mg/actuat metered dose inhaler (19 sources) Corticosteroid, beta2-Adrenergic Agonist Start: 02-25-2024 End: 03-26-2024 take 2 puff(s) by inhalation in the morning Lsqpehw-Oxlbrfedyox-Jahltrvdvw (Breztri Aerosphere) 160-9-4.8 MCG/ACT aerosol Indications: Pulmonary emphysema, unspecified emphysema type (CMS/HCC) Inhale 2 puffs in the morning and 2 puffs before bedtime. 10.7 g 5 02/25/2024 03/26/2024 Active budesonide-glyco pyr-formoterol (BREZTRI AEROSPHERE) 160-9-4.8 mcg/actuation HFA aerosol inhaler Inhale 2 Puffs as instructed. Active clopidogrel 75 mg oral tablet (2 sources) P2Y12 Platelet Inhibitor Start: 07-22-2020 take 1 [...] 04/05/2023 Active hydroCHLOROthiazide 25 mg oral tablet (3 sources) Thiazide Diuretic Start: 10-02-2022 take 0.5 tablet by mouth in the morning hydroCHLOROthiazide (HYDRODiuril) 25 MG tablet Indications: HTN (hypertension), benign (CMS/HCC) Take 0.5 tablets (12.5 mg) by mouth in the morning. 15 tablet 3 10/02/2022 Active Start: 10-10-2018 take 1 capsule by mo [facility] once daily hydroCHLOROthiazide (MICROZIDE) 12.5 mg capsule Take 1 capsule (12.5 mg total) by mouth daily. 0 10/10/2018 Active hydrOXYzine hydrochloride 25 mg oral tablet (10 sources) Antihistamine Start: 10-19-2023 End: 12-18-2023 hydrOXYzine HCl (Atarax) 25 MG tablet Twice daily 10/19/2023 Active lisinopril 40 mg oral tablet (20 sources) Angiotensin Converting Enzyme Inhibitor Start: 10-10-2018 End: 09-29-2024 take 1 tablet by mouth once daily lisinopril 40 MG tablet Indications: Primary hypertension (CMS/HCC) Take 1 tablet (40 mg) by mouth Daily 90 tablet 1 07/01/2024 09/29/2024 Active mupirocin 0.02 mg/mg topical ointment (4 sources) RNA Synthetase Inhibitor Antibacterial Start: 06-19-2023 End: 08-06-2023 mupirocin (BACTROBAN) 2 % ointment Apply 1/2 ointment with a cotton swab in each nostril 2x daily for five days preop 22 g 0 06/19/2023 08/06/2023 Active omeprazole 40 mg delayed release oral capsule (20 sources) Proton Pump Inhibitor Start: 01-18-2024 End: [...] Active vit C/E/Zn/coppr/lutein/zeax an (PRESERVISION AREDS-2 ORAL) (2 sources) take 1 tablet by mouth once daily [...] Onset: 2 Episodic Disorders of lipid metabolism (20 sources) [...] [Essential hypertension] Onset: 1 Resolved: 3 Chronic Malaise and fatigue (20 sources) Asthenia; Translations: [Weakness] Onset: 3 10-03-2022 Episodic Occlusion or stenosis of precerebral arteries (20 sources) Occlusion and stenosis of left carotid artery; Translations: [Carotid artery stenosis] Onset: 1 Resolved: 5 Chronic Other aftercare (1 source) 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; Translations: [HALF-WAY CURRENT USE OF ASPIRIN] Onset: 3 Episodic Other aftercare (1 source) Other longterm (current) drug therapy; Translations: [OTH HALF-WAY CURRENT DRUG THERAPY] Onset: 3 Episodic Other disorders of stomach and duodenum (8 sources) Upset stomach; Translations: [Functional dyspepsia] Onset: 5 06-19-2024 Episodic Other ear and sense organ disorders [...] 4 04-10-2023 Chronic Other upper respiratory disease (20 sources) Chronic rhinitis; Translations: [Chronic rhinitis] Onset: 4 04-09-2023 Chronic Other upper respiratory disease (20 sources) Allergic rhinitis; Translations: [Allergic rhinitis, unspecified] Onset: 4 05-14-2023 Chronic Peripheral and visceral atherosclerosis (20 sources) Peripheral vascular disease; Translations: [Peripheral vascular disease, unspecified] Onset: 1 Resolved: 3 10-31-2022 Chronic Residual codes; unclassified (1 source) Tobacco use; Translations: [Tobacco user] Onset: 4 Episodic Spondylosis; intervertebral disc disorders; other back problems (20 sources) Degeneration of cervical intervertebral disc; Translations: [Other cervical disc degeneration, unspecified cervical region] Onset: 3 12-12-2022 Chronic Substance-related disorders (20 sources) Nicotine dependence, cigarettes, uncomplicated; Translations: [Cigarette smoker ] Onset: 3 Resolved: 5 02-07-2024 Chronic Superficial injury; contusion (4 sources) Contusion of other part of head, initial encounter; Translations: [Abrasion of other part of head, initial encounter] Onset: 3 Episodic Thyroid disorders (20 sources) Nontoxic single thyroid nodule; Translations: [Thyroid nodule] Onset: 2 Chronic Unclassified (3 sources) COUGH, UNSPECIFIED; Translations: [COUGH, UNSPECIFIED] Onset: 3 Unclassified (1 source) Established Patient Onset: Past or Other Problems Problem Classification Problem Date Documented Da te Episodic/Chronic Allergic reactions (20 sources) Inflammatory dermatosis; Translations: [Dermatitis, unspecified] Onset: 01-18-2024 Resolved: 01-18-2024 10-19-2023 Episodic Deficiency and other anemia (20 sources) Anemia; Translations: [Anemia, unspecified] Onset: 05-14-2023 Resolved: 06-19-2024 07-12-2023 Episodic Deficiency and other anemia (20 sources) Iron deficiency anemia; Translations: [Iron deficiency anemia, unspecified] Onset: 12-18-2023 12-18-2023 Episodic Immunizations and screening for infectious disease (20 sources) CONVEYOR MONITOR antibody positive; Translations: [Other specified abnormal immunological findings in serum] Onset: 10-31-2022 10-31-2022 Episodic Mood disorders (20 sources) Mood disorders Onset: 12-18-2023 12-18-2023 Other [...] 08-16-2023 08-16-2023 Episodic Other lower respiratory disease (20 sources) [...] Episodic Other nutritional; endocrine; and metabolic disorders (20 [...] neoplasm of prostate] Onset: 01-07-2022 Episodic Other skin disorders (18 sources) Eruption; Translations: [Rash and other nonspecific skin eruption] Onset: 02-25-2024 02-25-2024 Episodic Other upper respiratory infections (20 sources) Acute frontal sinusitis; Translations: [Acute frontal sinusitis, unspecified] Onset: 02-25-2024 Resolved: 06-19-2024 02-25-2024 Episodic Otitis media and related conditions (20 sources) Dysfunction of eustachian tube; Translations: [Unspecified Eustachian tube disorder, unspecified ear] Onset: 09-05-2022 Resolved: 10-31-2022 09-05-2022 Episodic Residual codes; unclassified (1 source) Other specified postprocedural states; Translations: [OTH SPECIFIED POSTPROCEDURAL STATES] Onset: 11-01-2021 Episodic Residual codes; unclassified (20 sources) Tobacco user; Translations: [Tobacco use] Onset: 05-14-2023 Resolved: 06-19-2024 07-12-2023 Episodic Residual codes; unclassified (20 sources) H/O Spinal surgery; Translations: [Other specified postprocedural states] Onset: 08-06-2023 Resolved: 03-19-2024 08-06-2023 Episodic Residual codes; unclassified (15 sources) Other specified health status; Translations: [Other drug allergy] Onset: 03-19-2024 03-19-2024 Episodic Spondylosis; intervertebral disc disorders; other back problems (20 sources) Spinal stenosis in cervical region; Translations: [Spinal stenosis, cervical region] Onset: 09-05-2022 09-05-2022 Episodic Unclassified (1 source) COUGH, UNSPECIFIED; Translations: [COUGH, UNSPECIFIED] Onset: 05-24-2022 Results Test Name Value Interpretation Reference Range Facility NM DARCIE PERF SPECT REST STRon 07-02-[address] [address] Nuclear Medicine Report Signed Patient: SUNNI BLACKBURN MR#: [id number] : 1940 Acct:[id number] Age/Sex: 83 / M ADM Date: 07/01/24 Loc: NM Attending Dr: 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 NP Ordering Physician: 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 NP Date of Service: 07/01/24 Procedure(s): NM darcie perf SPECT rest str Accession Number(s): [id number] cc: 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 NP Patient Name: SUNNI BLACKBURN MR#: [id number] : 1940 Exam Date: 07/01/2024 Ordering Doctor: VENITA MONTEIRO CNP RADIOLOGY REPORT PROCEDURE: NM DARCIE PERF SPECT REST STR COMPARISON: None. INDICATIONS: FATIGUE, HYPERTENSION, DYSPNEA TECHNIQUE: Exam Description: Stress/Rest one day protocol gated SPECT Rest Imagin.9 mCi Tc-99m Cardiolite IV on 07/01/2024 Stress Imaging 30.7 mCi Tc-99m Cardiolite IV on 07/01/2024 Exercise Protocol: 0.4 mg Lexiscan given IV Heart Rate (bpm): Rest: 62 Max: 85 PMHR: 61 Blood Pressure: Rest: 138/80 Max: 144/84 Symptoms: Rest and peak stress ECG findings were pending and the exercise portion of the study was pending per attending physician [facility] . For more details please see separate cardiac stress test report. FINDINGS: QUALITY OF STUDY: Good PERFUSION DEFECT: None LOCATION: SIZE: SEVERITY: TYPE: WALL MOTION: Normal LV SIZE: 82 mL. TID / TCD: 0.8 LVEF: Calculated EF 78%. SUMMARY: Myocardial perfusion imaging study CONCLUSION: Negative nuclear perfusion stress test, no ischemia or infarction Normal left ventricle systolic function, EF 78% No transient ischemic dilatation, TID 0.8 EKG stress result is reported separately Dictated by: Ban Blue MD on 07/02/2024 at 18:50 Approved by: Ban Blue MD on 07/02/2024 at 18:53 Dictated By: Ban Blue M.D. Signed By: 07/02/241853 DD/ 52 TD/TT: Tick Sewer: [facility] Radiology, Radiologist, - 07/02/2024 [place] [address] Nuclear Medicine Report Signed Patient: SUNNI BLACKBURN MR#: [id number] : 1940 Acct:[id number] Age/Sex: 83 / M ADM Date: 07/01/24 Loc: NM Attending Dr: 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 NP Ordering Physician: 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 NP Date of Service: 07/01/24 Procedure(s): NM darcie perf SPECT rest str Accession Number(s): [id number] cc: 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 NP Patient Name: SUNNI BLACKBURN MR#: [id number] : 1940 Exam Date: 07/01/2024 Ordering Doctor: VENITA MONTEIRO CNP RADIOLOGY REPORT PROCEDURE: NM DARCIE PERF SPECT REST STR COMPARISON: None. INDICATIONS: FATIGUE, HYPERTENSION, DYSPNEA TECHNIQUE: Exam Description: Stress/Rest one day protocol gated SPECT Rest Imagin.9 mCi Tc-99m Cardiolite IV on 07/01/2024 Stress Imaging 30.7 mCi Tc-99m Cardiolite IV on 07/01/2024 Exercise Protocol: 0.4 mg Lexiscan given IV Heart Rate (bpm): Rest: 62 Max: 85 PMHR: 61 Blood Pressure: Rest: 138/80 Max: 144/84 Symptoms: Rest and peak stress ECG findings were pending and the exercise portion of the study was pending per attending physician [facility] . For more details please see separate cardiac stress test report. FINDINGS: QUALITY OF STUDY: Good PERFUSION DEFECT: None LOCATION: SIZE: SEVERITY: TYPE: WALL MOTION: Normal LV SIZE: 82 mL. TID / TCD: 0.8 LVEF: Calculated EF 78%. SUMMARY: Myocardial perfusion imaging study CONCLUSION: Negative nuclear perfusion stress test, no ischemia or infarction Normal left ventricle systolic function, EF 78% No transient ischemic dilatation, TID 0.8 EKG stress result is reported separately Dictated by: Ban Blue MD on 07/02/2024 at 18:50 Approved by: Ban Blue MD on 07/02/2024 at 18:53 Dictated By: Ban Blue M.D. Signed By: 07/02/241853 DD/ 52 TD/TT: Tick Sewer: [facility] Radiology Study observation (narrative) [facility] NM DARCIE PERF SPECT REST STROr dered By: Radiologist Radiology on 07-02-2024 [facility] Work Phone: ALL CBC WITH AUTO DIFFon BASOPHILS ABSOLUTE AUTO 0 [facility] Basophils/100 WBC (Bld) 0.2 % 0.2 - 2.0 % [facility] Eosinophils/100 WBC (Bld) 1.6 % 0.9 - 7.0 % [facility] Erythrocyte distribution width (RBC) [Ratio] 14.9 % 11.0 - 15.0 % [facility] Hematocrit (Bld) [Volume fraction] 40 % Low 42.0 - 54.0 % [facility] Hemoglobin (Bld) [Mass/Vol] 13.3 g/dL Low 14.0 - 18.0 g/dL [facility] IMMATURE GRANULOCYTES ABS AUTO 0.05 High [facility] Immature granulocytes/100 WBC (Bld) 0.6 % High 0.0 - 0.5 % [facility] Interpretation and review of laboratory results Abnormal [facility] LYMPHOCYTES ABSOLUTE AUTO 1.4 [facility] Lymphocytes/100 WBC (Bld) 15.3 % Low 20.5 - 60.0 % [facility] MCH (RBC) [Entitic mass] 30.9 pg 25.9 - 34.0 pg [facility] MCHC (RBC) [Mass/Vol] 33.3 g/dL 29.9 - 35.2 g/dL [facility] MCV (RBC) [Entitic vol] 93 fL 80.0 - 94.0 fL [facility] MONOCYTES ABSOLUTE AUTO 0.8 [facility] Monocytes/100 WBC (Bld) 8.9 % 1.7 - 12.0 % [facility] NEUTROPHILS ABSOLUTE AUTO 6.6 High [facility] Neutrophils/100 WBC (Bld) 73.4 % 43.0 - 75.0 % [facility] Platelet mean volume (Bld) [Entitic vol] 11.2 fL 9.5 - 13.5 fL [facility]1 [facility] PLT 223 [facility] RBC 4.3 Low [facility] WBC 9 [facility] CNOVon 04-29-2024 CNOV Office Visit (NSFRVW) SUNNI BLACKBURN ([id number]) 1940 M Date Time Provider Department 04/29/24 10:40 AM REBECA MARTINEZ NSFRVW During your visit today, we recorded the following information about you: Pulse Blood pressure Weight Height 84/minute 156/70 81.2 kg 1.676 m Rebeca Martinez MD 04/29/2024 11:08 AM Signed SPINE SURGERY FOLLOW UP This is an in-person visit. SERVICE DATE: 04/29/2024 SURGERY DATE: 08/06/2023 Sunni Blackburn is a pleasant 83-year-old gentleman is here in spine surgery clinic for 7 month postoperative follow-up visit. He underwent a C4-5, C5-6 anterior cervical discectomy, allograft and instrumented fusion on 08/06/2023. Prior to surgery he was complaining of shocklike sensation in bilateral upper extremity for a year. He also noticed diffuse sensory disturbance up to fingers. He also had right hand surgical manager weakness and imbalance while walking. During last clinic visit on 08/23/2023, he had reported that since surgery his shocklike sensation is significantly improved. Numbness is improving. Imbalance is improving. He notices swallowing difficulty after surgery which is significantly improved with the steroid. He was also evaluated with a barium swallow during postoperative time. Still had minimal swallowing problem for big pills. Today, he says his left hand has started becoming more numb over the past couple months. This is progressed since last clinic visit. Denies left hand pain or difficulty gripping objects. He reports that his shocklike sensations have completely resolved. Currently smoking ANTIPLATELET OR ANTICOAGULATION STATUS: No Patient Entered [...] severe depression 20-27 Severe depression PHYSICAL EXAM: BP 156/70 Pulse 84 Ht 167.6 cm (5' 6 ) Wt 81.2 kg (179 lb 0.2 oz) SpO2 98% BMI 28.89 kg/m? GENERAL APPEARANCE: Well nourished, well developed, and no apparent distress. NEURO PSYCH: Patient oriented to person, place, and time. Mood pleasant. Benign affect. CARDIOVASCULAR: Palpable pulses. No edema noted. No varicosities. SKIN: Head, neck, trunk, and extremities dry, intact and without lesions. LYMPHATICS: No palpable nodes in cervical or axillae areas. Groin exam deferred. MUSCULOSKELETAL VISUAL INSPECTION CERVICAL: Anterior cervical scar is healthy THORACIC: WNL LUMBAR: WNL PALPATION: SPINOUS PROCESS: No pain. PARASPINALS: No pain. MOTOR: 5/5 in all muscle groups. SENSORY: Normal sensory exam GAIT: Stable gait. REFLEXES: +2 to bilateral U/L extremities. PROPRIOCEPTION: Normal. LONG TRACT SIGNS: No clonus. No Hoffmans. STRAIGHT LEG TEST: Ipsilateral: Negative. Contralateral: Negative. L'HERMITTES SIGN: Negative. SPURLING'S TEST: Not tested. DATA REVIEW [facility] records independently reviewed Images independently reviewed with the patient ASSESSMENT/PLAN Sunni Blackburn is a pleasant 83-year-old gentleman is here in spine surgery clinic for 7 month postoperative follow-up visit. He underwent a C4-5, C5-6 anterior cervical discectomy, allograft and instrumented fusion on 08/06/2023. Prior to surgery he was complaining of shocklike sensation in bilateral upper extremity for a year. He also noticed diffuse sensory disturbance up to fingers. He also had right hand surgical manager weakness and imbalance while walking. During last clinic visit on 08/23/2023, he had reported that since surgery his shocklike sensation is significantly improved. Numbness is improving. Imbalance is improving. He notices swallowing difficulty after surgery which is significantly improved with the steroid. He was also evaluated with a barium swallow during postoperative time. Still had minimal swallowing problem for big pills. Today, he says his left hand has started becoming more numb over the past couple months. This is progressed since last clinic visit. Denies left hand pain or difficulty gripping objects. He reports that his shocklike sensations have completely resolved. Currently smoking Examination showed well-healing anterior cervical incision, no signs of infection. No motor weakness. Stable gait. X-ray cervical spine done on 04/29/2024 showed stable C4-6 instrumented fusion. No obvious instrument failure. Severe spondylosis at C6-7 level. Discussed clinical, (more content not included)... Normal [facility] XR CERVICAL 2V AP/LATon 03- XR CERVICAL 2V AP/LAT * * *Final Report* * * DATE OF EXAM: Apr 29 2024 10:02AM [id number] - XR CERVICAL 2V AP/LAT / PROCEDURE REASON: Cervical vertebral fusion * * * * Physician Interpretation * * * * EXAMINATION / TECHNIQUE: XR CERVICAL 2V AP/LAT PATIENT/TECHNOLOGIST PROVIDED HISTORY: f/u CLINICAL INFORMATION ( PROVIDED BY ORDERING CLINICIAN) : Cervical vertebral fusion COMPARISON: 08/05/2013 and prior RESULT: Counting reference: Craniocervical junction. Anatomic Variants: None. Status post C4-C6 ACDF. Hardware is intact. Progressive incorporation of graft material compared to prior. Precervical soft tissue swelling and soft tissue gas have resolved. Preserved cervical lordosis. No significant curvature or spondylolisthesis. C1-C2 relationship is preserved. Vertebral body heights are preserved. No acute fracture is identified. Moderate to severe degenerative disc disease at C6-C7, unchanged compared to prior, with disc height loss, degenerative endplate changes, and osteophytes. Uncovertebral and facet arthropathy. IMPRESSION: C4-C6 ACDF with intact hardware. Tick Sewer: GREER Transcribe Date/Time: May 02 2024 7:46A Dictated by : DANAE QUEEN MD This examination was interpreted and the report reviewed and electronically signed by: DANAE QUEEN MD on May 02 2024 7:47AM EST [id number] CN [facility] ALL CBC WITH AUTO DIFFon BASOPHILS ABSOLUTE AUTO 0 [facility] Basophils/100 WBC (Bld) 0.4 % 0.2 - 2.0 % [facility] Eosinophils/100 WBC (Bld) 4 % 0.9 - 7.0 % [facility] Erythrocyte distribution width (RBC) [Ratio] 14.8 % 11.0 - 15.0 % [facility] Hematocrit (Bld) [Volume fraction] 38.6 % Low 42.0 - 54.0 % [facility] Hemoglobin (Bld) [Mass/Vol] 12.6 g/dL Low 14.0 - 18.0 g/dL [facility] IMMATURE GRANULOCYTES ABS AUTO 0.04 High [facility] Immature granulocytes/100 WBC (Bld) 0.5 % 0.0 - 0.5 % [facility] Interpretation and review of laboratory results Abnormal [facility] LYMPHOCYTES ABSOLUTE AUTO 1.3 [facility] Lymphocytes/100 WBC (Bld) 18 % Low 20.5 - 60.0 % [facility] MCH (RBC) [Entitic mass] 30.8 pg 25.9 - 34.0 pg [facility] MCHC (RBC) [Mass/Vol] 32.6 g/dL 29.9 - 35.2 g/dL [facility] MCV (RBC) [Entitic vol] 94.4 fL High 80.0 - 94.0 fL [facility] MONOCYTES ABSOLUTE AUTO 0.7 [facility] Monocytes/100 WBC (Bld) 9.5 % 1.7 - 12.0 % [facility] NEUTROPHILS ABSOLUTE AUTO 5 [facility] Neutrophils/100 WBC (Bld) 67.6 % 43.0 - 75.0 % [facility] Platelet mean volume (Bld) [Entitic vol] 10.7 fL 9.5 - 13.5 fL [facility] TBH EO # 0.3 [facility] TBH PLT 262 [facility] TB RBC 4.09 Low [facility] TB WBC 7.3 [facility] ALL LIPID PROFILE (FASTING)o n 03-20-2024 CHOL HDL RATIO 3.4 [facility] Comment on above: 3.3 - 4.4 LOW RISK 4.4 - 7.1 AVERAGE RISK 7.1 - 11.0 MODERATE RISK >11.0 HIGH RISK Cholesterol [Mass/Vol] 218 mg/dL High NINF - 200 mg/dL [facility] Cholesterol in HDL [Mass/Vol] 65 mg/dL High 40 - 60 mg/dL [facility] Comment on above: > or =60 mg/dl - LOW CARDIOVASCULAR RISK <40 mg/dl - HIGH CARDIOVASCULAR RISK Magnesium [Mass/Vol] 136 mg/dL [facility] Comment on above: <100 mg/dl OPTIMAL 100-129 mg/dl NEAR OR ABOVE OPTIMAL 130-159 mg/dl BORDERLINE HIGH 160-189 mg/dl HIGH >190 mg/dl VERY HIGH Magnesium [Mass/Vol] 17.4 mg/dL [facility] Triglyceride [Mass/Vol] 87 mg/dL NINF - 150 mg/dL [facility] ALL THYROID STIM HORMONEon 0 03-20-2024 TSH Qn 1.584 m[IU]/L [facility] ALL THYROXINE (T4) FREEon Free T4 [Mass/Vol] 1 ng/dL 0.76 - 1. 46 ng/dL [facility] CMP (CMP) (FOR REMOTE FH C USE)on 03-20-2024 Albumin [Mass/Vol] 3.1 g/dL Low 3.4 - 5.0 g/dL [facility] ALBUMIN GLOBULIN RATIO 0.9 NO [facility] ALP [Catalytic activity/Vol] 91 U/L 46 - 116 U/L [facility] ALT [Catalytic activity/Vol] 25 U/L 16 - 63 U/L [facility] Anion gap [Moles/Vol] 11.7 mmol/L NO [facility] AST [Catalytic activity/Vol] 15 U/L 15 - 37 U/L [facility] Bilirubin [Mass/Vol] 0.4 mg/dL 0.2 - 1 .0 mg/dL [facility] Calcium [Mass/Vol] 8.6 mg/dL 8.5 - 10. 1 mg/dL [facility] Chloride [Moles/Vol] 107 mmol/L 98 - 10 7 mmol/L [facility] CO2 [Moles/Vol] 28.9 mmol/L 21.0 - 32.0 mmol/L [facility] Creatinine [Mass/Vol] 1.07 mg/dL 0.70 - 1.30 mg/dL [facility] GFR/1.73 sq M.predicted CKD-EPI (S/P/Bld) [Vol rate/Area] >60 >=60 mL/min/1.73m 2 [facility] Globulin (S) [Mass/Vol] 3.3 g/dL [facility] Glucose [Mass/Vol] 88 mg/dL 74 - 106 mg/dL [facility] Potassium [Moles/Vol] 4.6 mmol/L 3.5 - 5.1 mmol/L [facility] Protein [Mass/Vol] 6.4 g/dL 6.4 - 8.2 g/dL [facility] Sodium [Moles/Vol] 143 mmol/L 136 - 145 mmol/L [facility] EGFR-NON AF [place] >60 >=60 mL/min/1.73m 2 [facility] Urea nitrogen [Mass/Vol] 22 mg/dL High 7.0 - 18.0 mg/dL [facility] Urea nitrogen/Creatinine [Mass ratio] 20.6 mg/mg [facility] FERRITINon 03-20-2024 Ferritin [Mass/Vol] 244 ng/mL 26.0 - 3 88.0 ng/mL [facility] METRO IRON AND TIBCon 2024 TB IRON 105 ug/dL 65.0 - 175.0 ug/dL [facility] PERCENT IRON SATURATION 41.8 % [facility] TOTAL IRON BINDING CAPACITY 251 ug/dL 250.0 - 450.0 ug/dL Count includes the [facility] No [facility] Interpretation and review of laboratory results Abnormal [facility] MICROALB CREAT RATIO RAN DOMon 03-20-2024 CREATININE URINE RANDOM 116.68 mg/dL 20.00 - 300.00 mg/dL [facility] MICROALBUM CREATININE RATIO UR 11.9 mg/g 0.0 - 29.9 mg/g [facility] Comment on above: NO MICROALBUMINURIA 0-29 MG/G CLINICAL MICROALBUMINURIA 30-300 MG/G MACROALBUMINURIA >300 MG/G MICROALBUMIN URINE RANDOM 1.4 mg/dL NINF - 30.0 mg/dL [facility] TBH UA (CLEAN/CATCH) MICROSC OPIC IF INDICATEon 03-20-2024 BILIRUBIN URINE Negative NEGATIVE [facility] BLOOD URINE Negative NEGATIVE [facility] Clarity (U) CLEAR CLEAR [facility] Color (U) YELLOW YELLOW [facility] GLUCOSE URINE UA Negative NEGATIVE mg/dL [facility] Ketones Ql (U) Negative NEGATIVE mg/dL [facility] Leukocyte esterase Test strip Ql (U) Negative NEGATIVE [facility] NITRITE URINE Negative NEGATIVE [facility] pH (U) 6.0 [pH] 5.0 - 9.0 [facility] PROTEIN URINE Negative NEG/TRACE mg/dL [facility] SPECIFIC GRAVITY URINE 1.025 1.005 - 1.025 [facility] URINE MICROSCOPIC INDICATED NO [facility] UROBILINOGEN URINE 0.2 EU/dL 0.2 - 1.0 EU/dL [facility] [place] esophaguson 01-10-2024 [place] esophagus [facility] [place] [address] [place] [address] Fluoroscopy Report Signed Patient: Sunni Blackburn MR#: [id number] : 1940 Acct:[id number] Age/Sex: 83 / M ADM Date: 01/10/24 Loc: Room: Type: [facility] Attending Dr: Jovany Ovalle DO Copies [...] Jonah Edmonds M.D.01/10/2024 10:38 AM Dictation Location: [place] [address] Transcribed By: [facility] 01/10/24 1038 Dictated By: Jonah Edmonds II, MD 01/10/24 1035 Signed By: 01/10/24 1038 Normal [facility] Fluoroscopy reportOrdered By : Jonah Edmonds on 01-10-2024 RF Unspecified body region Views [facility] [place] [address] [place] [address] Fluoroscopy Report Signed Patient: Sunni Blackburn MR#: [id number] : 1940 Acct:[id number] Age/Sex: 83 / M ADM Date: 4 Loc: XD Room: Type: [facility] Attending Dr: Jovany Ovalle DO Copies [...] Jonah Edmonds M.D.01/10/2024 10:38 AM Dictation Location: [place] [address] Transcribed By: JOE 01/10/24 1038 Dictated By: Jonah Edmonds II, MD 01/10/24 1035 Signed By: 01/10/24 1038 [facility] Work Phone: ALL CBC WITH AUTO DIFFon BASOPHILS ABSOLUTE AUTO 0 [facility] Basophils/100 WBC (Bld) 0.4 % 0.2 - 2.0 % [facility] Eosinophils/100 WBC (Bld) 1.7 % 0.9 - 7.0 % [facility] Erythrocyte distribution width (RBC) [Ratio] 14.6 % 11.0 - 15.0 % [facility] Hematocrit (Bld) [Volume fraction] 41.5 % Low 42.0 - 54.0 % [facility] Hemoglobin (Bld) [Mass/Vol] 13.4 g/dL Low 14.0 - 18.0 g/dL [facility] IMMATURE GRANULOCYTES ABS AUTO 0.04 High [facility] Immature granulocytes/100 WBC (Bld) 0.4 % 0.0 - 0.5 % [facility] Interpretation and review of laboratory results Abnormal [facility] LYMPHOCYTES ABSOLUTE AUTO 0.7 Low [facility] Lymphocytes/100 WBC (Bld) 7.7 % Low 20.5 - 60.0 % [facility] MCH (RBC) [Entitic mass] 30.2 pg 25.9 - 34.0 pg [facility] MCHC (RBC) [Mass/Vol] 32.3 g/dL 29.9 - 35.2 g/dL [facility] MCV (RBC) [Entitic vol] 93.5 fL 80.0 - 94.0 fL [facility] MONOCYTES ABSOLUTE AUTO 0.6 [facility] Monocytes/100 WBC (Bld) 6.9 % 1.7 - 12.0 % [facility] NEUTROPHILS ABSOLUTE AUTO 7.5 High [facility] Neutrophils/100 WBC (Bld) 82.9 % High 43.0 - 75.0 % [facility] Platelet mean volume (Bld) [Entitic vol] 11.1 fL 9.5 - 13.5 fL [facility] TBH EO # 0.2 [facility] TBH PLT 216 [facility] TB RBC 4.44 Low [facility] TB WBC 9.1 [facility] 10-18-2023 [facility] Telephone (NSFRVW) SUNNI BLACKBURN ([id number]) 1940 M Date Time Provider Department 10/18/23 REBECA MARTINEZ NSFRVW During your visit today, we recorded the following information about you: Isaías Bonilla 10/18/2023 11:22 AM Signed Received outside medical records from [facility], discharge notes, in chart for review. Jerry Delvalle RN 10/18/2023 11:41 AM Signed noted Allergies As of Date: 10/18/2023 Noted Allergy Reaction NEOSPORIN (BENZALKONIUM CHLORIDE) 07/12/2023 2 - Rash Comments: Blisters/scarring on skin. Date Reviewed: 08/23/2023 Reviewed by: Nilsa Nguyen OCCA - Fully Assessed Reason for Visit: Received Outside Medical Records [[id number]] Prescriptions as of 10/18/2023 - vit A,C,Y-Hzmn-Zqlyhr (PRESERVISION AREDS) 2,148 mcg-113 mg-45 mg-17.4mg tab [...] Encounter Status:Closed by JERRY DELVALLE on 10/18/23 [facility] Monica 09-03-2023 [facility] Telephone (NEADFV) SUNNI BLACKBURN ([id number]) 1940 M Date Time Provider Department 09/03/23 REBECA MARTINEZ During your visit today, we recorded the following information about you: Danay Rayo 09/03/2023 2:42 PM Signed [facility] PT Initial Exam report scanned to [facility] for review and completion Jerry Delvalle RN 09/03/2023 2:49 PM Signed Printed for review AND signature Allergies As of Date: 09/03/2023 Noted Allergy Reaction NEOSPORIN (BENZALKONIUM CHLORIDE) 07/12/2023 2 - Rash Comments: Blisters/scarring on skin. Date Reviewed: 08/23/2023 Reviewed by: Nilsa Nguyen OCCA - Fully Assessed Reason for Visit: Claims Assistant - Other [[id number]] Prescriptions as of 09/03/2023 - vit A,C,X-Alic-Zbmxph (PRESERVISION AREDS) 2,148 mcg-113 mg-45 mg-17.4mg tab [...] Encounter Status:Closed by [facility]Y [facility]VALLE [facility] Telephone (NEADFV) SUNNI BLACKBURN ([id number]) 1940 M Date Time Provider Department 08/27/23 REBECA MARTINEZ [facility] During your visit today, we recorded the following information about you: Danay Rayo 08/27/2023 8:38 AM Signed Pt phoned asking if there were any restrictions he should follow. Please call and advise Pt phone [phone] Jermaine Granado RN 08/27/2023 9:46 AM Signed Called and spoke with patient. Answered all questions. Patient stated he was unaware that PT was ordered for him. Wants to complete PT at [facility]. PT fax number [phone]. Faxed to number with confirmation fax. Allergies As of Date: 08/27/2023 Noted Allergy Reaction NEOSPORIN (BENZALKONIUM CHLORIDE) 07/12/2023 2 - Rash Comments: Blisters/scarring on skin. Date Reviewed: 08/23/2023 Reviewed by: Nilsa Nguyen OCCA - Fully Assessed Reason for Visit: Patient Question [9575] Prescriptions as of 08/27/2023 - vit A,C,E-Sxsm-Euvaca (PRESERVISION AREDS) 2,148 mcg-113 mg-45 mg-17.4mg tab [...] Encounter Status:Closed by JERMAINE GRANADO on 08/27/23 [facility] CNOVon 08-23-2023 CNOV Office Visit (SPSNAV) SUNNI BLACKBURN ([id number]) 1940 M Date Time Provider Department 08/23/23 [...] to fingers. He also had right hand surgical manager weakness and imbalance while walking. Since surgery [...] to fingers. He also had right hand surgical manager weakness and imbalance while walking. Since surgery [...] skin. Date Reviewed: 08/23/2023 Reviewed by: Nilsa Nguyen, EDIE (more content not included)... [facility] (ORLORA) SUNNI BLACKBURN ([id number]) 1940 M Date Time Provider Department 07/13/23 CLOVIS GUNDERSON During your visit today, we recorded the following information about you: Clovis Gunderson APRN.CNP 07/13/2023 7:58 AM Signed Patient was [...] mg for surgery. Thank you Clovis VELASCO Allergies As of Date: 07/13/2023 Noted Allergy Reaction NEOSPORIN (BENZALKONIUM CHLORIDE) 07/12/2023 2 - Rash Comments: Blisters/scarring on skin. Date Reviewed: 07/12/2023 Reviewed by: Clovis Gunderson APRN.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 - Fully Assessed Reason for Visit: Medication Problem [65] Prescriptions as of 07/13/2023 - vit A,C,S-Jtkf-Phhsuw (PRESERVISION AREDS) 2,148 mcg-113 mg-45 mg-17.4mg tab [...] Status:Closed by CLOVIS GUNDERSON on 07/13/23 Normal [facility] ACTIVATED PARTIAL THROMBOPLA STIN TIMEOrdered By: Cata Miranda on 07-12-2023 aPTT Coag (PPP) [Time] 31.9 s [facility] Comment on above: Frozen Plasma Aliquo t CBC W Auto Differential pane l (Bld)on 07-12-2023 Basophils (Bld) [#/Vol] 0.04 10*3/uL [facility] Basophils/100 WBC (Bld) 0.5 % [facility] Differential cell count method Nom (Bld) Auto [facility] Eosinophils (Bld) [#/Vol] 0.21 10*3/uL [facility] Eosinophils/100 WBC (Bld) 2.4 % [facility] Erythrocyte distribution width (RBC) [Ratio] 15.0 % 11.5 - 15.0 % [facility] Hematocrit (Bld) [Volume fraction] 41.3 % 39.0 - 51.0 % [facility] Hemoglobin (Bld) [Mass/Vol] 13.5 g/dL 13.0 - 17.0 g/dL [facility] Immature granulocytes (Bld) [#/Vol] 0.05 10*3/uL [facility] Immature granulocytes/100 WBC (Bld) 0.6 % [facility] Lymphocytes (Bld) [#/Vol] 1.53 10*3/uL [facility] Lymphocytes/100 WBC (Bld) 17.4 % [facility] MCH (RBC) [Entitic mass] 30.1 pg 26.0 - 34.0 pg [facility] MCHC (RBC) [Mass/Vol] 32.7 g/dL 30.5 - 36.0 g/dL [facility] MCV (RBC) [Entitic vol] 92.0 fL 80.0 - 100.0 fL [facility] Monocytes (Bld) [#/Vol] 0.63 10*3/uL [facility] Monocytes/100 WBC (Bld) 7.2 % [facility] Neutrophils (Bld) [#/Vol] 6.33 10*3/uL [facility] Neutrophils/100 WBC (Bld) 71.9 % [facility] Nucleated RBC (Bld) [#/Vol] [facility] Nucleated RBC/100 WBC (Bld) [Ratio] 0.0 % /100 WBC [facility] Platelet mean volume (Bld) [Entitic vol] 12.2 fL 9.0 - 12.7 fL [facility] Platelets (Bld) [#/Vol] 230 10*3/uL [facility] RBC (Bld) [#/Vol] 4.49 10*6/uL 4.20 - 6.0 0 m/uL [facility] WBC (Bld) [#/Vol] 8.79 10*3/uL [facility] Basophils (Bld) [#/Vol] 0.04 10*3/uL Normal <0.11 [facility] Comment on above: Order Comment: Speci men Type: BLOOD SPECIMEN Ordering Facility: [facility] Address: [address] [place] [address] Performed By: #### 3 4528-0, 80294-4 #### [facility] CLIA [id number] [address] [place] [address] [place] Basophils/100 WBC (Bld) 0.5 % Normal [facility] Comment on above: Order Comment: Speci men Type: BLOOD SPECIMEN Ordering Facility: [facility] Address: [address] [place] [address] Performed By: #### 3 4528-0, 19357-4 #### [facility] CLIA [id number] [address] [place] [address] [place] Differential cell count method Nom (Bld) Auto Normal [facility] Comment on above: Order Comment: Speci men Type: BLOOD SPECIMEN Ordering Facility: [facility] Address: [address] [place] [address] Performed By: #### 3 4528-0, 51803-6 #### [facility] CLIA [id number] [address] [place] [address] [place] Eosinophils (Bld) [#/Vol] 0.21 10*3/uL Normal <0.46 [facility] Comment on above: Order Comment: Speci men Type: BLOOD SPECIMEN Ordering Facility: [facility] Address: [address] [place] [address] Performed By: #### 3 4528-0, 06778-8 #### [facility] CLIA [id number] [address] [place] [address] [place] Eosinophils/100 WBC (Bld) 2.4 % Normal [facility] Comment on above: Order Comment: Speci men Type: BLOOD SPECIMEN Ordering Facility: [facility] Address: [address] [place] [address] Performed By: #### 3 4528-0, 69273-2 #### [facility] CLIA [id number] [address] [place] [address] [place] Erythrocyte distribution width (RBC) [Ratio] 15.0 % Normal 11.5-15.0 [facility] Comment on above: Order Comment: Speci men Type: BLOOD SPECIMEN Ordering Facility: [facility] Address: [address] [place] [address] Performed By: #### 3 4528-0, 17355-8 #### [facility] CLIA [id number] [address] [place] [address] [place] Hematocrit (Bld) [Volume fraction] 41.3 % Normal 39.0-51.0 [facility] Comment on above: Order Comment: Speci men Type: BLOOD SPECIMEN Ordering Facility: [facility] Address: [address] [place] [address] Performed By: #### 3 4528-0, 95810-8 #### [facility] CLIA [id number] [address] [place] [address] [place] Hemoglobin (Bld) [Mass/Vol] 13.5 g/dL Normal 13.0-17.0 [facility] Comment on above: Order Comment: Speci men Type: BLOOD SPECIMEN Ordering Facility: [facility] Address: [address] [place] [address] Performed By: #### 3 4528-0, 51207-2 #### [facility] CLIA [id number] [address] [place] [address] [place] Immature granulocytes (Bld) [#/Vol] 0.05 10*3/uL Normal <0.10 [facility] Comment on above: Order Comment: Speci men Type: BLOOD SPECIMEN Ordering Facility: [facility] Address: [address] [place] [address] Performed By: #### 3 4528-0, 75967-3 #### [facility] CLIA [id number] [address] [place] [address] [place] Immature granulocytes/100 WBC (Bld) 0.6 % Normal [facility] Comment on above: Order Comment: Speci men Type: BLOOD SPECIMEN Ordering Facility: [facility] Address: [address] [place] [address] Performed By: #### 3 4528-0, 34716-0 #### [facility] CLIA [id number] [address] [place] [address] [place] Lymphocytes (Bld) [#/Vol] 1.53 10*3/uL Normal 1.00-4.00 [facility] Comment on above: Order Comment: Speci men Type: BLOOD SPECIMEN Ordering Facility: [facility] Address: [address] [place] [address] Performed By: #### 3 4528-0, 63566-0 #### [facility] CLIA [id number] [address] [place] [address] [place] Lymphocytes/100 WBC (Bld) 17.4 % Normal [facility] Comment on above: Order Comment: Speci men Type: BLOOD SPECIMEN Ordering Facility: [facility] Address: [address] [place] [address] Performed By: #### 3 4528-0, 00565-0 #### [facility] CLIA [id number] [address] [place] [address] [place] MCH (RBC) [Entitic mass] 30.1 pg Normal 26.0-34.0 [facility] Comment on above: Order Comment: Speci men Type: BLOOD SPECIMEN Ordering Facility: [facility] Address: [address] [place] [address] Performed By: #### 3 4528-0, 10608-6 #### [facility] CLIA [id number] [address] [place], [place] [id number] [place] MCHC (RBC) [Mass/Vol] 32.7 g/dL Normal 30.5-36.0 [facility] Comment on above: Order Comment: Speci men Type: BLOOD SPECIMEN Ordering Facility: [facility] Address: [address] [place] [address] Performed By: #### 3 4528-0, 43036-7 #### [facility] CLIA [id number] [address] [place] [address] [place] MCV (RBC) [Entitic vol] 92.0 fL Normal 80.0-100.0 [facility] Comment on above: Order Comment: Speci men Type: BLOOD SPECIMEN Ordering Facility: [facility] Address: [address] [place] [address] Performed By: #### 3 4528-0, 62195-6 #### [facility] CLIA [id number] [address] [place] [address] [place] Monocytes (Bld) [#/Vol] 0.63 10*3/uL Normal <0.87 [facility] Comment on above: Order Comment: Speci men Type: BLOOD SPECIMEN Ordering Facility: [facility] Address: [address] [place] [address] Performed By: #### 3 4528-0, 43874-8 #### [facility] CLIA [id number] [address] [place] [address] [place] Monocytes/100 WBC (Bld) 7.2 % Normal [facility] Comment on above: Order Comment: Speci men Type: BLOOD SPECIMEN Ordering Facility: [facility] Address: [address] [place] [address] Performed By: #### 3 4528-0, 86976-7 #### [facility] CLIA [id number] [address] [place] [address] [place] Neutrophils (Bld) [#/Vol] 6.33 10*3/uL Normal 1.45-7.50 [facility] Comment on above: Order Comment: Speci men Type: BLOOD SPECIMEN Ordering Facility: [facility] Address: [address] [place] [address] Performed By: #### 3 4528-0, 11955-7 #### [facility] CLIA [id number] [address] [place] [address] [place] Neutrophils/100 WBC (Bld) 71.9 % Normal [facility] Comment on above: Order Comment: Speci men Type: BLOOD SPECIMEN Ordering Facility: [facility] Address: [address] [place] [address] Performed By: #### 3 4528-0, 20830-4 #### [facility] CLIA [id number] [address] [place] [address] [place] Nucleated RBC (Bld) [#/Vol] 10*3/uL Normal <0.01 [facility] Comment on above: Order Comment: Speci men Type: BLOOD SPECIMEN Ordering Facility: [facility] Address: [address] [place] [address] Performed By: #### 3 4528-0, 87908-0 #### [facility] CLIA [id number] [address] [place] [address] [place] Nucleated RBC/100 WBC (Bld) [Ratio] 0.0 /100 WBC Normal [facility] Comment on above: Order Comment: Speci men Type: BLOOD SPECIMEN Ordering Facility: [facility] Address: [address] [place] [address] Performed By: #### 3 4528-0, 24380-3 #### [facility] [facility] CLIA [id number] [address] [place] [address] [place] Platelet mean volume (Bld) [Entitic vol] 12.2 fL Normal 9.0-12.7 [facility] Comment on above: Order Comment: Speci men Type: BLOOD SPECIMEN Ordering Facility: [facility] Address: [address] [place] [address] Performed By: #### 3 4528-0, 93982-4 #### [facility] CLIA [id number] [address] [place] [address] [place] Platelets (Bld) [#/Vol] 230 10*3/uL Normal 150-400 [facility] Comment on above: Order Comment: Speci men Type: BLOOD SPECIMEN Ordering Facility: [facility] Address: [address] [place] [address] Performed By: #### 3 4528-0, 51791-1 #### [facility] CLIA [id number] [address] [place] [address] [place] RBC (Bld) [#/Vol] 4.49 10*6/uL Normal 4.20-6.00 [facility] Comment on above: Order Comment: Speci men Type: BLOOD SPECIMEN Ordering Facility: [facility] Address: [address] [place] [address] Performed By: #### 3 4528-0, 85783-8 #### [facility] CLIA [id number] [address] [place] [address] [place] WBC (Bld) [#/Vol] 8.79 10*3/uL Normal 3.70-11.00 [facility] Comment on above: Order Comment: Speci men Type: BLOOD SPECIMEN Ordering Facility: [facility] Address: [address] [place] [address] Performed By: #### 3 4528-0, 01883-8 #### [facility] CLIA [id number] [address] [place] [address] [place] CONFIRM BLOOD TYPEon 16-2 024 ABO group Nom (Bld) A [facility] Rh Nom (Bld) Positive [facility] ABO A Normal [facility] Comment on above: Order Comment: Speci men Type: BLOOD SPECIMEN Ordering Facility: [facility] Address: [address] [place] [address] Performed By: #### 3 4528-0, 86368-6 #### [facility] CLIA [id number] [address] [place] [address] [place] Rh Nom (Bld) Positive Normal [facility] Comment on above: Order Comment: Speci men Type: BLOOD SPECIMEN Ordering Facility: [facility] Address: [address] [place] [address] Performed By: #### 3 4528-0, 13647-2 #### [facility] CLIA [id number] [address] [place] [address] [place] Comprehensive metabolic 2000 panelon 07-12-2023 Albumin [Mass/Vol] 3.9 g/dL 3.9 - 4.9 g/dL [facility] ALP [Catalytic activity/Vol] 90 U/L 38 - 113 U/L [facility] ALT [Catalytic activity/Vol] 12 U/L 10 - 54 U/L [facility] Anion gap [Moles/Vol] 11 mmol/L 9 - 18 mmol/L [facility] AST [Catalytic activity/Vol] 17 U/L 14 - 40 U/L [facility] Bilirubin [Mass/Vol] 0.2 mg/dL 0.2 - 1 .3 mg/dL [facility] Calcium [Mass/Vol] 9.0 mg/dL 8.5 - 10. 2 mg/dL [facility] Chloride [Moles/Vol] 106 mmol/L High 97 - 10 5 mmol/L [facility] CO2 [Moles/Vol] 23 mmol/L 22 - 30 mmol/L [facility] Creatinine [Mass/Vol] 0.90 mg/dL 0.73 - 1.22 mg/dL [facility] GFR/1.73 sq M.predicted among non-blacks MDRD (S/P/Bld) [Vol rate/Area] 85 mL/min/{1.73_m2} - PINF [facility] Comment on above: Estimated Glomerular Filtration [...] [Mass/Vol] 99 mg/dL 74 - 99 mg/dL [facility] Comment on above: The [place] Diab[employer] s Association (ADA) provides guidance for [...] Standards of Medical Care in Diabetes 2016, [place] [employer]. Diabetes Care. 2016.39(Suppl 1). Interpretation and review of laboratory results Abnormal [facility] Potassium [Moles/Vol] 4.3 mmol/L 3.7 - 5.1 mmol/L [facility] Protein [Mass/Vol] 6.5 g/dL 6.3 - 8.0 g/dL [facility] Sodium [Moles/Vol] 140 mmol/L 136 - 144 mmol/L [facility] Urea nitrogen [Mass/Vol] 24 mg/dL 9 - 24 mg/dL [facility] Albumin [Mass/Vol] 3.9 g/dL Normal 3.9-4.9 [facility] Comment on above: Order Comment: Juana duke Type: BLOOD SPECIMEN Ordering Facility: [facility] Address: [address] [place] [address] Performed By: #### 5 0190-8, 15434-3, 2276-4 #### [facility] CLIA [id number] [address] [place] [address] [place] ALP [Catalytic activity/Vol] 90 U/L Normal 38-113 [facility] Comment on above: Order Comment: Juana duke Type: BLOOD SPECIMEN Ordering Facility: [facility] Address: [address] [place] [address] Performed By: #### 5 0190-8, 56620-1, 2275-4 #### [facility] CLIA [id number] [address] [place] [address] [place] ALT [Catalytic activity/Vol] 12 U/L Normal 10-54 [facility] Comment on above: Order Comment: Speci men Type: BLOOD SPECIMEN Ordering Facility: [facility] Address: [address] [place] [address] Performed By: #### 5 0190-8, 22913-8, 4 #### [facility] CLIA [id number] [address] [place] [address] [place] Anion gap [Moles/Vol] 11 mmol/L Normal 9-18 [facility] Comment on above: Order Comment: Speci men Type: BLOOD SPECIMEN Ordering Facility: [facility] Address: [address] [place] [address] Performed By: #### 5 0190-8, 42236-5, 2275-05 #### [facility] CLIA [id number] [address] [place] [address] [place] AST [Catalytic activity/Vol] 17 U/L Normal 14-40 [facility] Comment on above: Order Comment: Speci men Type: BLOOD SPECIMEN Ordering Facility: [facility] Address: [address] [place] [address] Performed By: #### 5 0190-8, 83639-1, 4 #### [facility] CLIA [id number] [address] [place] [address] [place] Bilirubin [Mass/Vol] 0.2 mg/dL Normal 0.2-1.3 [facility] Comment on above: Order Comment: Speci men Type: BLOOD SPECIMEN Ordering Facility: [facility] Address: [address] [place] [address] Performed By: #### 5 0190-8, 02307-1, 2275-4 #### [facility] CLIA [id number] [address] [place], [place] [address] [place] Calcium [Mass/Vol] 9.0 mg/dL Normal 8.5-10.2 [facility] Comment on above: Order Comment: Speci men Type: BLOOD SPECIMEN Ordering Facility: [facility] Address: [address] [place] [address] Performed By: #### 5 0190-8, 61612-9, 2275-4 #### [facility] CLIA [id number] [address] [place] [address] [place] Chloride [Moles/Vol] 106 mmol/L High 97-105 [facility] Comment on above: Order Comment: Speci men Type: BLOOD SPECIMEN Ordering Facility: [facility] Address: [address] [place] [address] Performed By: #### 5 0190-8, 86429-1, 4 #### [facility] CLIA [id number] [address] [place] [address] [place] CO2 [Moles/Vol] 23 mmol/L Normal 22-30 [facility] Comment on above: Order Comment: Speci men Type: BLOOD SPECIMEN Ordering Facility: [facility] Address: [address] [place] [address] Performed By: #### 5 0190-8, 51277-9, 4 #### [facility] CLIA [id number] [address] [place] [address] [place] Creatinine [Mass/Vol] 0.90 mg/dL Normal 0.73-1.22 [facility] Comment on above: Order Comment: Speci men Type: BLOOD SPECIMEN Ordering Facility: [facility] Address: [address] [place] [address] Performed By: #### 5 0190-8, 41024-0, 2275-4 #### [facility] CLIA [id number] [address] [place] [address] [place] [facility] Creatinine and Glomerular filtration rate.predicted panel (S/P/Bld) 85 mL/min/1.73m??? Normal >=60 [facility] Comment on above: Order Comment: Juana duke Type: BLOOD SPECIMEN Ordering Facility: [facility] Address: [address] [place] [address] Result Comment: Kirsty mated Glomerular Filtration Rate [...] actual GFR. Performed By: #### 5 0190-8, 20300-1, 2276-4 #### [facility] CLIA [id number] [address] [place] [address] [place] Glucose [Mass/Vol] 99 mg/dL Normal 74-99 [facility] Comment on above: Order Comment: Juana duke Type: BLOOD SPECIMEN Ordering Facility: [facility] Address: [address] [place] [address] Result Comment: The [place] Diabetes Association (ADA) provides guidance for cutoff [...] Standards of Medical Care in Diabetes 2016, [place] Diabetes [employer]. Diabetes Care. 2016.39(Suppl 1). Performed By: #### 5 0190-8, 47592-9, 2276-4 #### [facility] CLIA [id number] [address] [place] [address] [place] Potassium [Moles/Vol] 4.3 mmol/L Normal 3.7-5.1 [facility] Comment on above: Order Comment: Speci men Type: BLOOD SPECIMEN Ordering Facility: [facility] Address: [address] [place] [address] Performed By: #### 5 0190-8, 20297-4, 2275-4 #### [facility] CLIA [id number] [address] [place] [address] [place] Protein [Mass/Vol] 6.5 g/dL Normal 6.3-8.0 [facility] Comment on above: Order Comment: Speci men Type: BLOOD SPECIMEN Ordering Facility: [facility] Address: [address] [place] [address] Performed By: #### 5 0190-8, 40553-2, 2275-4 #### [facility] CLIA [id number] [address] [place] [address] [place] Sodium [Moles/Vol] 140 mmol/L Normal 136-144 [facility] Comment on above: Order Comment: Speci men Type: BLOOD SPECIMEN Ordering Facility: [facility] Address: [address] [place] [address] Performed By: #### 5 0190-8, 96534-9, 2275-4 #### [facility] CLIA [id number] [address] [place] [address] [place] Urea nitrogen [Mass/Vol] 24 mg/dL Normal 9-24 [facility] Comment on above: Order Comment: Speci men Type: BLOOD SPECIMEN Ordering Facility: [facility] Address: [address] [place] [address] Performed By: #### 5 0190-8, 83211-6, 2275-4 #### [facility] CLIA [id number] [address] [place] [address] [place] ECG COMPLETEon 05-16-2024 Atrial Rate 69 BPM [facility] Calculated P Mach[place] 68 degrees [facility] Calculated R [place] 29 degrees [facility] Calculated T [place] 42 degrees [facility] P-R Interval 172 ms [facility] QRS Duration 82 ms [facility] QT Interval 420 ms [facility] QTC Calculation (Bazett) 450 ms [facility] Ventricular Rate 69 BPM [facility] NORMAL SINUS RHYTHM NORMAL ECG Confirmed by EUNICE COYLE M.D. ([id number]) on 07/12/2023 9:12:33 PM [facility] NAME : SUNNI BLACKBURN PID : [id number] : 1940 Gender : Male Race : ORD : [id number] Procedure Date : Jul 12 2023 10:37:29 Edit Date : Jul 12 2023 21:12:34 Diagnosis: NORMAL SINUS RHYTHM NORMAL ECG Confirmed by EUNCIE COYLE M.D. ([id number]) on 07/12/2023 9:12:33 PM Test Reason : Location : 145 : [place] Overread By : EUNICE COYLE M.D. Edited By : EUNICE COYLE M.D. Referred By : CAROLYN MARTINEZ Acquired by : santosh [facility] ECG COMPLETE Ventricular Rate : 69 BPM Atrial Rate : 69 BPM P-R Interval : 172 ms QRS Duration : 82 ms Q-T Interval : 420 ms QTC Calculation(Bazett) : 450 ms Calculated P Machias : 68 degrees Calculated R Machias : 29 degrees Calculated T Machias : 42 degrees NORMAL SINUS RHYTHM NORMAL ECG Confirmed by EUNICE COYLE M.D. ([id number]) on 07/12/2023 9:12:33 PM NAME : RENETTA,ARNCHELI PID : [id number] : 1940 Gender : Male Race : ORD : [id number] Procedure Date : Jul 12 2023 10:37:29 Edit Date : Jul 12 2023 21:12:34 Diagnosis: NORMAL SINUS RHYTHM NORMAL ECG Confirmed by EUNICE COYLE M.D. ([id number]) on 07/12/2023 9:12:33 PM Test Reason : Location : 145 : [place] Overread By : EUNICE COYLE M.D. Edited By : EUNICE COYLE M.D. Referred By : CAROLYN MARTINEZ Acquired by : Tru frost [facility] FERRITINon 07-12-2023 Ferritin [Mass/Vol] 151.0 ng/mL 30.3 - 5 65.7 ng/mL [facility] Ferritin SerPl-mCncon 2023 Ferritin [Mass/Vol] 151.0 ng/mL Normal 30.3-565.7 [facility] Comment on above: Order Comment: Speci men Type: BLOOD SPECIMEN Ordering Facility: [facility] Address: [address] [place] [address] Performed By: #### 5 0190-8, 59178-0, 2276-4 #### [facility] CLIA [id number] [address] [place] [address] [place] [address] [place] Ferritin [Mass/Vol]on 2023 Interpretation and review of laboratory results Normal [facility] HISTORY PHYSICALon HISTORY PHYSICAL HNO ID: [id number] Author: CLOVIS GUNDERSON APRN.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 Service: ? Author Type: Nurse Practitioner Type: [...] over 50 (more content not included)... Normal [facility] Iron and Iron binding capaci ty panelon 07-12-2023 Interpretation and review of laboratory results Normal [facility] Iron [Mass/Vol] 88 ug/dL 41 - 186 ug/dL [facility] Iron binding capacity [Mass/Vol] 237 ug/dL 232 - 386 ug/dL [facility] Iron/TIBC [Molar ratio] 37.1 % 15.0 - 57.0 % [facility] Iron [Mass/Vol] 88 ug/dL Normal 41-186 [facility] Comment on above: Order Comment: Juana duke Type: BLOOD SPECIMEN Ordering Facility: [facility] Address: [address] [place] [address] Performed By: #### 5 0190-8, 25638-9, 2276-4 #### [facility] CLIA [id number] [address] [place] [address] [place] Iron binding capacity [Mass/Vol] 237 ug/dL Normal 232-386 [facility] Comment on above: Order Comment: Juana duke Type: BLOOD SPECIMEN Ordering Facility: [facility] Address: [address] [place] [address] Performed By: #### 5 0190-8, 71083-4, 2276-4 #### [facility] CLIA [id number] [address] [place] [address] [place] Iron/TIBC [Molar ratio] 37.1 % Normal 15.0-57.0 [facility] Comment on above: Order Comment: Speci men Type: BLOOD SPECIMEN Ordering Facility: [facility] Address: [address] [place] [address] Performed By: #### 5 0190-8, 95365-9, 2276-4 #### [facility] CLIA [id number] [address] [place] [address] [place] No Panel Informationon 07-11 [facility] No Panel InformationOrdered By: Cata Miranda on 07-12-2023 Interpretation and review of laboratory results Normal [facility] PT panel Coag (PPP)on 2023 INR Coag (PPP) [Relative time] 1.0 {INR} 0.9 - 1.3 [facility] Comment on above: Vitamin K Antagonist (VKA) Therapeutic Range: INR 2 to 3 (Target INR of 2.5) Note: For patients treated with VKA drugs, such as warfarin, the [place] [employer] 2012 Guideline recommends [...] to 3.5 (target INR of 3). Andria JAMES, et al. Chest 2012, 141:7S-47S Alicia RA, et al. JACC 2017, 70: 252-289 PT Coag (PPP) [Time] 10.5 s [facility] INR Coag (PPP) [Relative time] 1.0 {INR} Normal 0.9-1.3 [facility] Comment on above: Order Comment: Juana duke Type: BLOOD SPECIMEN Ordering Facility: [facility] Address: [address] [place] [address] Result Comment: Ronit min K Antagonist (VKA) Therapeutic Range: INR 2 to 3 (Target INR of 2.5) Note: For patients treated with VKA drugs, such as warfarin, the [place] [employer] 2012 Guideline recommends [...] to 3.5 (target INR of 3). Andria JAMSE, et al. Chest 2012, 141:7S-47S Alicia RA, et al. JACC 2017, 70: 252-289 Performed By: #### 3 4528-0, 85724-1 #### [facility] CLIA [id number] [address] [place] [address] [place] PT Coag (PPP) [Time] 10.5 s Normal 9.7-13.0 [facility] Comment on above: Order Comment: Juana duke Type: BLOOD SPECIMEN Ordering Facility: [facility] Address: [address] [place] [address] Performed By: #### 3 4528-0, 59236-9 #### [facility] CLIA [id number] [address] [place] [address] [place] TYPE AND SCREEN,30 DAYon ABO A Normal [facility] Comment on above: Order Comment: Juana duke Type: BLOOD SPECIMEN Ordering Facility: [facility] Address: [address] [place] [address] Performed By: #### 3 4528-0, 69800-7 #### [facility] CLIA [id number] [address] [place] [address] [place] HISTORICAL AB SCR STATUS Negative Normal [facility] Comment on above: Order Comment: Speci men Type: BLOOD SPECIMEN Ordering Facility: [facility] Address: [address] [place] [address] Performed By: #### 3 4528-0, 23140-7 #### [facility] CLIA [id number] [address] [place] [address] [place] Rh Nom (Bld) Positive Normal [facility] Comment on above: Order Comment: Speci men Type: BLOOD SPECIMEN Ordering Facility: [facility] Address: [address] [place] [address] Performed By: #### 3 4528-0, 53353-2 #### [facility] CLIA [id number] [address] [place] [address] [place] aPTT Coag (PPP) [...] laboratory APTT reagent in use throughout the [facility]. [facility] aPTT PPPon 07-12-2023 aPTT Coag (PPP) [Time] 31.9 s Normal 23.0-32.4 Cl [facility] Comment on above: Order Comment: Speci men Type: BLOOD SPECIMEN Ordering Facility: [facility] Address: [address] [place] [address] Result Comment: Samia en Plasma Aliquot Performed By: #### 3 4528-0, 42119-4 #### [facility] CLIA [id number] [address] [place] [address] [place] CNPKalpana 06-20-2023 CNPN Telephone (NIQ) SUNNI BLACKBURN ([id number]) 1940 M Date Time Provider Department 06/20/23 REBECA MARTINEZ NIQ During your visit today, we recorded the following information about you: Liliam Clayton 06/20/2023 9:50 AM Signed Received Ultrasound of the Carotid report by fax from [facility]. Scanned fax to chart for review. Allergies As of Date: 06/20/2023 (Not on File) Date Reviewed: 06/19/2023 Reviewed by: Kala Horta MA - Fully Assessed Reason for Visit: Received Outside Medical Records [[id number]] Prescriptions as of 07/24/2023 - vit A,C,R-Ixvc-Csgrjg (PRESERVISION AREDS) 2,148 mcg-113 mg-45 mg-17.4mg tab [...] Encounter Status:Closed by LILIAM CLAYTON on 07/24/23 [facility] CNOVon 06-19-2023 CNOV Office Visit (NSFRVW) RENETTASUNNI WALTERS ([id number]) 1940 M Date Time Provider Department 06/19/23 [...] in bilateral upper extremity Walking difficulty Hand surgical manager weakness HISTORY OF PRESENT ILLNESS: Sunni Blackburn [...] over bilateral hand. Noticed minimal right hand surgical manager weakness and dropping things. Noticed minimal imbalance [...] DERMATOMAL DISTRIBUTION: Not applicable AMBULATORY STATUS: [facility] ANTIPLATELET OR ANTICOAGULATION STATUS: Aspirin 81 mg [...] SpO2 99% (more content not included)... Normal [facility] XR CERVICAL 4V AP/LAT/FLX/EX Ton 06-19-2023 [...] 1. No acute fracture 2. Degenerative changes. Tick Sewer: PSCB Transcribe Date/Time: Jun 21 2023 3:35P Dictated by : DAKOTA CORONA MD This examination was interpreted and the report reviewed and electronically signed by: DAKOTA CORONA MD on Jun 21 2023 3:38PM EST [id number] CN [facility] ALL CBC WITH AUTO DIFFon BASOPHILS ABSOLUTE AUTO 0.1 [facility] Basophils/100 WBC (Bld) 0.5 % 0.2 - 2.0 % [facility] Eosinophils/100 WBC (Bld) 1.7 % 0.9 - 7.0 % [facility] Erythrocyte distribution width (RBC) [Ratio] 14.9 % 11.0 - 15.0 % [facility] Hematocrit (Bld) [Volume fraction] 37.2 % Low 42.0 - 54.0 % [facility] Hemoglobin (Bld) [Mass/Vol] 12.0 g/dL Low 14.0 - 18.0 g/dL [facility] IMMATURE GRANULOCYTES ABS AUTO 0.25 High [facility] Immature granulocytes/100 WBC (Bld) 2.1 % High 0.0 - 0.5 % [facility] Interpretation and review of laboratory results Abnormal [facility] LYMPHOCYTES ABSOLUTE AUTO 2.5 [facility] Lymphocytes/100 WBC (Bld) 20.7 % 20.5 - 60.0 % [facility] MCH (RBC) [Entitic mass] 29.9 pg 25.9 - 34.0 pg [facility] MCHC (RBC) [Mass/Vol] 32.3 g/dL 29.9 - 35.2 g/dL [facility] MCV (RBC) [Entitic vol] 92.5 fL 80.0 - 94.0 fL [facility] MONOCYTES ABSOLUTE AUTO 1.0 High [facility] Monocytes/100 WBC (Bld) 8.6 % 1.7 - 12.0 % [facility] NEUTROPHILS ABSOLUTE AUTO 7.8 High [facility] Neutrophils/100 WBC (Bld) 66.4 % 43.0 - 75.0 % [facility] Platelet mean volume (Bld) [Entitic vol] 11.1 fL 9.5 - 13.5 fL [facility] TBH EO # 0.2 [facility] TBH PLT 236 [facility] TB RBC 4.02 Low [facility] TB WBC 11.8 High [facility] US THYROIDon 07-26-2022 US THYROID EXAMINATION: US [...] by: ARTEM MIRANDA Date: 2022-07-26 09:[address] [facility] PROF CHEM 8 (BAS METB)on Anion gap [Moles/Vol] 11.5 mmol/L Normal [facility] Comment on above: Performed By: #### B MP #### [facility] [address] [place] [address] Dr. Bethany Killian Calcium [Mass/Vol] 8.5 mg/dL Normal 8.5-10.1 [facility] Comment on above: Performed By: #### B MP #### [facility] [address] [address] [address] Bethany Killian Chloride [Moles/Vol] 109 mmol/L Critically high 98-[address] [facility] Comment on above: Performed By: #### B MP #### [facility] [address] [address] [address] Bethany Killian CO2 [Moles/Vol] 26.2 mmol/L Normal 21.0-32.0 [facility] Comment on above: Performed By: #### B MP #### [facility] [address] [address] [address] Bethany Killian Creatinine [Mass/Vol] 1.06 mg/dL Normal 0.70-1.[address] [facility] Comment on above: Performed By: #### B MP #### [facility] [address] [address] [address] Bethany Killian EGFR-AF [place] >60 Normal >=60 [facility] Comment on above: Performed By: #### B MP #### [facility] [address] [address] [address] Bethany Killian EGFR-NON AF [place] >60 Normal >=[address] [facility] Comment on above: Performed By: #### B MP #### [facility] [address] [address] [address] Bethany Killian Glucose [Mass/Vol] 80 mg/dL Normal 74-106 [facility] Comment on above: Performed By: #### B MP #### [facility] [address] [address] [address] Bethany Killian Potassium [Moles/Vol] 4.7 mmol/L Normal 3.5-5.[address] [facility] Comment on above: Performed By: #### B MP #### [facility] [address] [place] [address] Dr. Bethany Killian Sodium [Moles/Vol] 142 mmol/L Normal 136-145 [facility] Comment on above: Performed By: #### B MP #### [facility] [address] [address] [address] Bethany Killian Urea nitrogen [Mass/Vol] 26.0 mg/dL Critically high 7.0-18.[address] [facility] Comment on above: Performed By: #### B MP #### [facility] [address] [address] [address] Bethany Killian Urea nitrogen/Creatinine [Mass ratio] 24.5 mg/mg Normal [facility] Comment on above: Performed By: #### B MP #### [facility] [address] [address] CSPINE WO CONon [...] by: Lam GORDILLO Date: 2022-06-11 19:[address] [facility] CT HEAD WO CONon 06-11-2022 [...] by: CHRISTEN ARREDONDO Date: 2022-06-11 19:[address] [facility] XR CHEST 2 Von 05-25-2022 [...] by: SAVAGE OATES Date: 2022-05-25 07:[address] [facility] PROF CHEM 8 (BAS METB)on Anion gap [Moles/Vol] 12.2 mmol/L Normal [facility] Comment on above: Performed By: #### B MP ####[facility] [address] [place], [place] [address]RwBhavin Mimswalker Constantin Calcium [Mass/Vol] 8.7 mg/dL Normal 8.5-10.1 [facility] Comment on above: Performed By: #### B MP ####[facility] [address] [address]Dr. Bethany Killian Chloride [Moles/Vol] 106 mmol/L Normal 98-107 [facility] Comment on above: Performed By: #### B MP ####[facility] [address] [address]Dr. Bethany Killian CO2 [Moles/Vol] 26.0 mmol/L Normal 21.0-32.0 [facility] Comment on above: Performed By: #### B MP ####[facility] [address] [place], [place] [address]Dr. Bethany Killian Creatinine [Mass/Vol] 1.04 mg/dL Normal 0.70-1.30 [facility] Comment on above: Performed By: #### B MP ####[facility] [address] [place], [place] [address]Dr. Bethany Killian EGFR-AF PAPUA NEW GUINEAN >60 Normal >=60 [facility] Comment on above: Performed By: #### B MP ####[facility] [address]coasq[address]re[address] [place], [place] [address]Dr. Bethany Killian EGFR-NON AF PAPUA [place] GUINEAN >60 Normal >=60 [facility] Comment on above: Performed By: #### B MP ####[facility] [address]bat[address]kman[address] [place], [place] [address]Dr. Bethany Killian Glucose [Mass/Vol] 85 mg/dL Normal 74-106 [facility] Comment on above: Performed By: #### B MP ####[facility] [address]simph[address]kwy[address] [place], [place] [address]Dr. Bethany Killian Potassium [Moles/Vol] 4.2 mmol/L Normal 3.5-5.1 [facility] Comment on above: Performed By: #### B MP ####[facility] [address] [place], [place] [address]Dr. Bethany Killian Sodium [Moles/Vol] 140 mmol/L Normal 136-145 [facility] Comment on above: Performed By: #### B MP ####[facility] Es[address]ympr[address] [place], [place] [address]HdDr. Bethany Killian Urea nitrogen [Mass/Vol] 29.0 mg/dL Critically high 7.0-18.[address] [facility] Comment on above: Performed By: #### B MP ####[facility] [address] [id number]. Bethany Killian Urea nitrogen/Creatinine [Mass ratio] 27.9 mg/mg Normal [facility] Comment on above: Performed By: #### B MP ####[facility] [address] [address]Dr. Bethany Killian CBC AUTO DIFFon 02-24-2022 BASO # 0.0 103/ul Normal 0.0-0.[address] [facility] Comment on above: Performed By: #### C BC #### [facility] [address] [address] [address] Bethany Killian Basophils/100 WBC (Bld) 0.3 % Normal 0.2-2.[address] [facility] Comment on above: Performed By: #### C BC #### [facility] [address] [address] [address] Bethany Killian EO # 0.2 103/ul Normal 0.0-0.7 [facility] Comment on above: Performed By: #### C BC #### [facility] [address] [address] [address] Bethany Killian Eosinophils/100 WBC (Bld) 1.8 % Normal 0.9-7.0 [facility] Comment on above: Performed By: #### C BC #### [facility] [address] [address] [address] Bethany Killian Erythrocyte distribution width (RBC) [Ratio] 14.8 % Normal 11.0-15.0 [facility] Comment on above: Performed By: #### C BC #### [facility] [address] [address] [address] Bethany Killian Hematocrit (Bld) [Volume fraction] 38.3 % Critically low 42.0-54.[address] [facility] Comment on above: Performed By: #### C BC #### [facility] [address] [address] [address] Bethany Killian Hemoglobin (Bld) [Mass/Vol] 12.6 g/dL Critically low 14.0-18.[address] [facility] Comment on above: Performed By: #### C BC #### [facility] [address] [address] [address] Bethany Killian IG # 0.05 10e3/ul Critically high 0.00-0.03 [facility] Comment on above: Performed By: #### C BC #### [facility] [address] [address] [address] Bethany Killian IG % 0.6 % Critically high 0.0-0.5 [facility] Comment on above: Performed By: #### C BC #### [facility] [address] [address] [address] Bethany Killian LYMPH # 1.8 103/ul Normal 1.2-3.8 [facility] Comment on above: Performed By: #### C BC #### [facility] [address] [address] [address] Bethany Killian Lymphocytes/100 WBC (Bld) 20.2 % Critically low 20.5-60.[address] [facility] Comment on above: Performed By: #### C BC #### [facility] [address] [place] [address] Dr. Bethany Killian MANUAL DIFF REQ NO Normal [facility] Comment on above: Performed By: #### C BC #### [facility] [address] [address] [address] Bethany Killian MCH (RBC) [Entitic mass] 29.9 pg Normal 25.9-34.0 [facility] Comment on above: Performed By: #### C BC #### [facility] [address] [address] [address] Bethany Killian MCHC (RBC) [Mass/Vol] 32.9 g/dL Normal 29.9-35.2 [facility] Comment on above: Performed By: #### C BC #### [facility] [address] [address] [address] Bethany Killian MCV (RBC) [Entitic vol] 90.8 fL Normal 80.0-94.0 [facility] Comment on above: Performed By: #### C BC #### [facility] [address] [address] [address] Bethany Killian MONO # 0.9 103/ul Critically high 0.3-0.8 [facility] Comment on above: Performed By: #### C BC #### [facility] [address] [address] [address] Bethany Killian Monocytes/100 WBC (Bld) 9.9 % Normal 1.7-12.[address] [facility] Comment on above: Performed By: #### C BC #### [facility] [address] [place] [address] Dr. Bethany Killian NEUT # 5.9 103/ul Normal 1.4-6.[address] [facility] Comment on above: Performed By: #### C BC #### [facility] [address] [address] [address] Bethany Killian Neutrophils/100 WBC (Bld) 67.2 % Normal 43.0-75.0 [facility] Comment on above: Performed By: #### C BC #### [facility] [address] [place], [place] [id number] Dr. Bethany Killian Platelet mean volume (Bld) [Entitic vol] 11.8 fL Normal 9.5-13.5 [facility] Comment on above: Performed By: #### C BC #### [facility] [address] [place] [address] Dr. Bethany Killian PLT 242 103/ul Normal 150-450 [facility] Comment on above: Performed By: #### C BC #### [facility] [address] [id number] [address] Bethany Killian RBC 4.22 106/ul Critically low 4.70-6.10 [facility] Comment on above: Performed By: #### C BC #### [facility] [address] [place] [address] Dr. Bethany Killian WBC 8.8 103/ul Normal 4.0-11.[address] [facility] Comment on above: Performed By: #### C BC #### [facility] [address] [place] [address] Dr. Bethany Killain FERRITINon 02-24-2022 Ferritin [Mass/Vol] 156.0 ng/mL Normal 26.0-388.[address] [facility] Comment on above: Performed By: #### I BRAYAN, FERR #### [facility] [address] [place] [address] Dr. Bethany Killian IRONon 02-24-2022 Iron [Mass/Vol] 99.0 ug/dL Normal 65.0-175.0 [facility] Comment on above: Performed By: #### I BRAYAN, BINTA #### [facility] [address] [place] [address] Dr. Bethany Killian PROF CHEM 8 (BAS METB)on Anion gap [Moles/Vol] 12.9 mmol/L Normal [facility] Comment on above: Result Comment: Prev iously reported as: 0.3 On 02/24/2022 13:42 By DM9 Performed By: #### B MP ####[facility] [address] [address]DrBhavin Killian Calcium [Mass/Vol] 8.9 mg/dL Normal 8.5-10.1 [facility] Comment on above: Performed By: #### B MP ####[facility] [address] [address]DrBhavin Killian Chloride [Moles/Vol] 102 mmol/L Normal 98-107 [facility] Comment on above: Result Comment: Prev iously reported as: 108 On 02/24/2022 13:42 By DM9 Performed By: #### B MP ####[facility] [address] [address]DrBhavin Killian CO2 [Moles/Vol] 27.4 mmol/L Normal 21.0-32.0 [facility] Comment on above: Result Comment: Prev iously reported as: 27.8 On 02/24/2022 13:42 By DM9 Performed By: #### B MP ####[facility] [address] [address]Dr. Bethany Killian Creatinine [Mass/Vol] 1.21 mg/dL Normal 0.70-1.[address] [facility] Comment on above: Performed By: #### B MP ####[facility] [address] [address]Dr. Bethany Killian EGFR-AF PAPUA NEW GUINEAN >60 Normal >=60 [facility] Comment on above: Performed By: #### B MP ####[facility] [address] [place], [place] [address]Dr. Bethany Killian EGFR-NON AF PAPUA [place] GUINEAN 58 mL/min/1.73m2 Critically low >=60 [facility] Comment on above: Performed By: #### B MP ####[facility] [address] [place], [place] [address]Dr. Bethany Killian Glucose [Mass/Vol] 98 mg/dL Normal 74-106 [facility] Comment on above: Performed By: #### B MP ####[facility] [address] [place], [place] [address]Dr. Bethany Klilian Potassium [Moles/Vol] 4.3 mmol/L Normal 3.5-5.[address] [facility] Comment on above: Result Comment: Prev iously reported as: 4.1 On 02/24/2022 13:42 By DM9 Performed By: #### B MP ####[facility] [address] [place], [place] [address]Dr. Bethany Killian Sodium [Moles/Vol] 138 mmol/L Normal 136-145 [facility] Comment on above: Result Comment: Prev iously reported as: 132 On 02/24/2022 13:42 By DM9 Performed By: #### B MP ####[facility] [address]vc[address] [place], [place] [address]Dr. Bethany Killian Urea nitrogen [Mass/Vol] 37.0 mg/dL Critically high 7.0-18.0 [facility] Comment on above: Performed By: #### B MP ####[facility] [address] [place], [place] [address]SuDr. Bethany Killian Urea nitrogen/Creatinine [Mass ratio] 30.6 mg/mg Normal [facility] Comment on above: Performed By: #### B MP ####[facility] [address] [place], [place] [address]QlDr. Bethany Killian CBC AUTO DIFFon 01-02-2022 BASO # 0.0 103/ul Normal 0.0-0.[address] [facility] Comment on above: Performed By: #### C BC #### [facility] [address] [address] [address] Bethany Killian Basophils/100 WBC (Bld) 0.5 % Normal 0.2-2.[address] [facility] Comment on above: Performed By: #### C BC #### [facility] [address] [address] [address] Bethany Killian EO # 0.1 103/ul Normal 0.0-0.[address] [facility] Comment on above: Performed By: #### C BC #### [facility] [address] [address] [address] Bethany Killian Eosinophils/100 WBC (Bld) 1.7 % Normal 0.9-7.[address] [facility] Comment on above: Performed By: #### C BC #### [facility] [address] [address] [address] Bethany Killian Erythrocyte distribution width (RBC) [Ratio] 14.6 % Normal 11.0-15.[address] [facility] Comment on above: Performed By: #### C BC #### [facility] [address] [address] [address] Bethany Killian Hematocrit (Bld) [Volume fraction] 37.8 % Critically low 42.0-54.[address] [facility] Comment on above: Performed By: #### C BC #### [facility] [address] [address] [address] Bethany Killian Hemoglobin (Bld) [Mass/Vol] 12.0 g/dL Critically low 14.0-18.0 [facility] Comment on above: Performed By: #### C BC #### [facility] [address] [address] [address] Bethany Killian IG # 0.04 10e3/ul Critically high 0.00-0.03 [facility] Comment on above: Performed By: #### C BC #### [facility] [address] [place] [address] Dr. Bethany Killian IG % 0.5 % Normal 0.0-0.[address] [facility] Comment on above: Performed By: #### C BC #### [facility] [address] [place] [address] Dr. Bethany Killian LYMPH # 1.2 103/ul Normal 1.2-3.[address] [facility] Comment on above: Performed By: #### C BC #### [facility] [address] [place] [address] Dr. Bethany Killian Lymphocytes/100 WBC (Bld) 15.1 % Critically low 20.5-60.[address] [facility] Comment on above: Performed By: #### C BC #### [facility] [address] [place] [address] Dr. Bethany Killian MANUAL DIFF REQ NO Normal [facility] Comment on above: Performed By: #### C BC #### [facility] [address] [place] [address] Dr. Bethany Killian MCH (RBC) [Entitic mass] 29.8 pg Normal 25.9-34.[address] [facility] Comment on above: Performed By: #### C BC #### [facility] [address] [place] [address] Dr. Bethany Killian MCHC (RBC) [Mass/Vol] 31.7 g/dL Normal 29.9-35.[address] [facility] Comment on above: Performed By: #### C BC #### [facility] [address] [place] [address] Dr. Bethany Killian MCV (RBC) [Entitic vol] 93.8 fL Normal 80.0-94.[address] [facility] Comment on above: Performed By: #### C BC #### [facility] [address] [place] [address] Dr. Bethany Killian MONO # 0.8 103/ul Normal 0.3-0.[address] [facility] Comment on above: Performed By: #### C BC #### [facility] [address] [address] [address] Bethany Killian Monocytes/100 WBC (Bld) 10.3 % Normal 1.7-12.[address] [facility] Comment on above: Performed By: #### C BC #### [facility] [address] [place] [address] Dr. Bethany Killian NEUT # 5.8 103/ul Normal 1.4-6.[address] [facility] Comment on above: Performed By: #### C BC #### [facility] [address] [place] [address] Dr. Bethany Killian Neutrophils/100 WBC (Bld) 71.9 % Normal 43.0-75.[address] [facility] Comment on above: Performed By: #### C BC #### [facility] [address] [place] [address] Dr. Bethany Killian Platelet mean volume (Bld) [Entitic vol] 12.2 fL Normal 9.5-13.[address] [facility] Comment on above: Performed By: #### C BC #### [facility] [address] [place] [address] Dr. Bethany Killian PLT 241 103/ul Normal 150-450 [facility] Comment on above: Performed By: #### C BC #### [facility] [address] [place] [address] Dr. Bethany Killian RBC 4.03 106/ul Critically low 4.70-6.10 [facility] Comment on above: Performed By: #### C BC #### [facility] [address] [place] [address] Dr. Bethany Killian WBC 8.1 103/ul Normal 4.0-11.[address] [facility] Comment on above: Performed By: #### C BC #### [facility] [address] [place] [address] Dr. Bethany Killian FREE T4on 01-02-2022 Free T4 [Mass/Vol] 1.00 ng/dL Normal 0.76-1.46 [facility] Comment on above: Performed By: #### F T4, PSASC ####[facility] [address] [address]DrBhavin Killian PROF 14(COMP METB)on 022 Albumin [Mass/Vol] 3.1 g/dL Critically low 3.4-5.0 [facility] Comment on above: Performed By: #### C MP, TSH ####[facility] [address] [address]Dr. Bethany Killian Albumin/Globulin [Mass ratio] 0.9 {ratio} Normal [facility] Comment on above: Performed By: #### C MP, TSH ####[facility] [address] [address]Dr. Bethany Killian ALP [Catalytic activity/Vol] 78 U/L Normal 46-[address] [facility] Comment on above: Performed By: #### C MP, TSH ####[facility] [address] [address]Dr. Bethany Killian ALT [Catalytic activity/Vol] 19 U/L Normal 16-[address] [facility] Comment on above: Performed By: #### C MP, TSH ####[facility] [address] [address]Dr. Bethany Killian Anion gap [Moles/Vol] 9.0 mmol/L Normal [facility] Comment on above: Performed By: #### C MP, TSH ####[facility] [address] [address]Dr. Bethany Killian AST [Catalytic activity/Vol] 12 U/L Critically low 15-[address] [facility] Comment on above: Performed By: #### C MP, TSH ####[facility] [address] [address]Dr. Bethany Killian Bilirubin [Mass/Vol] 0.4 mg/dL Normal 0.2-1.[address] [facility] Comment on above: Performed By: #### C MP, TSH ####[facility] [address] [address]Dr. Bethany Killian Calcium [Mass/Vol] 8.6 mg/dL Normal 8.5-10.1 [facility] Comment on above: Performed By: #### C MP, TSH ####[facility] [address] [address]Dr. Bethany Killian Chloride [Moles/Vol] 105 mmol/L Normal 98-107 [facility] Comment on above: Performed By: #### C MP, TSH ####[facility] [address] [address]Dr. Bethany Killian CO2 [Moles/Vol] 28.6 mmol/L Normal 21.0-32.0 [facility] Comment on above: Performed By: #### C MP, TSH ####[facility] [address] [address]Dr. Bethany Killian Creatinine [Mass/Vol] 0.99 mg/dL Normal 0.70-1.30 [facility] Comment on above: Performed By: #### C MP, TSH ####[facility] [address] [place], [place] [address]Dr. Bethany Killian EGFR-AF PAPUA NEW GUINEAN >60 Normal >=60 [facility] Comment on above: Performed By: #### C MP, TSH ####[facility] [address] [address]Dr. Bethany Killian EGFR-NON AF PAPUA NEW GUINEAN >60 Normal >=60 [facility] Comment on above: Performed By: #### C MP, TSH ####[facility] [address] [address]Dr. Bethany Killian Globulin (S) [Mass/Vol] 3.5 g/dL Normal [facility] Comment on above: Performed By: #### C MP, TSH ####[facility] [address] [address]Dr. Bethany Killian Glucose [Mass/Vol] 85 mg/dL Normal 74-106 [facility] Comment on above: Performed By: #### C MP, TSH ####[facility] [address] [address]Dr. Bethany Killian Potassium [Moles/Vol] 4.6 mmol/L Normal 3.5-5.[address] [facility] Comment on above: Performed By: #### C MP, TSH ####[facility] [address] [address]Dr. Bethany Killian Protein [Mass/Vol] 6.6 g/dL Normal 6.4-8.2 [facility] Comment on above: Performed By: #### C MP, TSH ####[facility] [address] [address]Dr. Bethany Killian Sodium [Moles/Vol] 138 mmol/L Normal 136-145 [facility] Comment on above: Performed By: #### C MP, TSH ####[facility] [address] [address]Dr. Bethany Killian Urea nitrogen [Mass/Vol] 30.0 mg/dL Critically high 7.0-18.[address] [facility] Comment on above: Performed By: #### C MP, TSH ####[facility] [address] [address]Dr. Bethany Killian Urea nitrogen/Creatinine [Mass ratio] 30.3 mg/mg Normal [facility] Comment on above: Performed By: #### C MP, TSH ####[facility] [address] [address]DrBhavin Killian TSHon 01-02-2022 TSH 1.411 uIU/mL Normal 0.358-3.740 [facility] Comment on above: Performed By: #### C MP, TSH ####[facility] [address] [id number] Killian UA RANDOM W/MICROSCOPICon BACTERIA NONE SEEN Normal NONE SEEN [facility] Comment on above: Performed By: #### U AMIC #### [facility] [address] [place], [place] [address] Dr. Bethany Killian Bilirubin Ql (U) Negative Normal NEGATIVE [facility] Comment on above: Performed By: #### U AMIC #### [facility] [address] [address] [address] Bethany Killian CAST NONE SEEN Normal NONE SEEN [facility] Comment on above: Performed By: #### U AMIC #### [facility] [address] [address] [address] Bethany Killian Clarity (U) CLEAR Normal CLEAR [facility] Comment on above: Performed By: #### U AMIC #### [facility] [address] [address] [address] Bethany Killian Color (U) LT. YELLOW Normal YELLOW [facility] Comment on above: Performed By: #### U AMIC #### [facility] [address] [address] [address] Bethany Killian Crystals LM Nom (Urine sed) NONE SEEN Normal NONE SEEN [facility] Comment on above: Performed By: #### U AMIC #### [facility] [address] [place] [address] Dr. Bethany Killian Epithelial cells LM Ql (Urine sed) NONE SEEN Normal NONE SEEN /RARE [facility] Comment on above: Performed By: #### U AMIC #### [facility] [address] [place] [address] Dr. Bethany Killian Glucose Ql (U) Negative Normal NEGATIVE [facility] Comment on above: Performed By: #### U AMIC #### [facility] [address] [address] [address] Bethany Killian Hemoglobin Ql (U) Negative Normal NEGATIVE [facility] Comment on above: Performed By: #### U AMIC #### [facility] [address] [address] [address] Bethany Killian Ketones Ql (U) Negative Normal NEGATIVE [facility] Comment on above: Performed By: #### U AMIC #### [facility] [address] [place] [address] Dr. Bethany Killian LEUKOCYTES Negative Normal NEGATIVE [facility] Comment on above: Performed By: #### U AMIC #### [facility] [address] [address] [address] Bethany Killian MUCOUS NONE SEEN Normal NONE SEEN [facility] Comment on above: Performed By: #### U AMIC #### [facility] [address] [address] [address] Bethany Killian Nitrite Ql (U) Negative Normal NEGATIVE [facility] Comment on above: Performed By: #### U AMIC #### [facility] [address] [address] [address] Bethany Killian pH (U) 6.5 [pH] Normal 5-9 [facility] Comment on above: Performed By: #### U AMIC #### [facility] [address] [address] [address] Bethany Killian RBC 0-2 Normal 0-[address] [facility] Comment on above: Performed By: #### U AMIC #### [facility] [address] [place] [address] Dr. Bethany Killian SPEC GRAVITY 1.020 Normal 1.005-<=1.025 [facility] Comment on above: Performed By: #### U AMIC #### [facility] [address] [place] [address] Dr. Bethany Killian UA PROTEIN Negative Normal NEGATIVE/ TRACE [facility] Comment on above: Performed By: #### U AMIC #### [facility] [address] [address] [address] Bethany Killian Urobilinogen Qn (U) 0.2 {Ian'U}/dL Normal 0.2 - 1. [address] [facility] [facility] Comment on above: Performed By: #### U AMIC #### [facility] [address] [address] [address] Bethany Killian WBC 0-2 Abnormal NONE SEEN [facility] Comment on above: Performed By: #### U AMIC #### [facility] [address] [place] [address] Dr. Bethany Killian US CAROTID ART BILon [...] by: SAVAGE OATES Date: 2021-11-01 07:[address] [facility] CULT[facility]SM[facility] [facility] [place]: SUNNI BLACKBURN LOCATION: [address] BILL#: [id number] : 42 AGE: SEX: M ORDERED BY: DARNELL PELLETIER: [facility] [place]LECTED: 10/19/16 00:00ANTIBIOTICS AT [place]OR[place].: RECEIVED : 10/19/16 21:47SITE: R E S U L T S FUNGAL SMEAR FINAL 10/20/16 10:08 FLUORESCENT FUNGAL STAIN: NEGATIVE FUNGAL CULTURE/, [facility] [place] 11/06/16 10:46 NO FUNGI ISOLATED. Normal [facility] MISCELLANEOUS CULT./SM.BACT. on 10-19-2016 MISCELLANEOUS CULT./SM.BACT. PATIENT: SUNNI BLACKBURN LOCATION: [address] BILL#: [id number] : 42 AGE: SEX: M ORDERED BY: DARNELL PELLETIER: [facility] [place]: 10/19/16 00:00ANTIBIOTICS AT [place]OR[place].: RECEIVED : 10/19/16 22:24SITE: R E S U L T S GRAM STAIN FINAL 10/20/16 00:59 NO GRANULOCYTES OR ORGANISMS SEEN. MISCELLANEOUS CULT./SM.BACT. FINAL 10/22/16 11:43 2+ MIXED SKIN PAVITHRA Normal [facility] Vital Signs Date Time Vital Sign Value Performing Clinician Yuli chamberlain 06-19-2024 09:52-0400 Body mass index (BMI) [Ratio] 29.38 kg/m2 Devi Shinekim CLINICAL GENETICS LABORATORY CHIEF Work Phone: [facility] 06-19-2024 09:52-0400 Body temperature 98.71 [degF] Devi Vieyradarin CLINICAL GENETICS LABORATORY CHIEF Work Phone: [facility] 06-19-2024 09:52-0400 Body weight 83.19 kg 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 CLINICAL GENETICS LABORATORY CHIEF Work Phone: [facility] 06-19-2024 09:52-0400 Diastolic blood pressure 76 mm[Hg] Devi Vieyradarin CLINICAL GENETICS LABORATORY CHIEF Work Phone: [facility] 06-19-2024 09:52-0400 Heart rate 74 /min Devi Vieyradarin CLINICAL GENETICS LABORATORY CHIEF Work Phone: [facility] 06-19-2024 09:52-0400 Respiratory rate 20 /min 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 CLINICAL GENETICS LABORATORY CHIEF Work Phone: [facility] 06-19-2024 09:52-0400 SaO2% (BldA) [Mass fraction] 98 % Devi Vieyradarin CLINICAL GENETICS LABORATORY CHIEF Work Phone: [facility] 06-19-2024 09:52-0400 Systolic blood pressure 138 mm[Hg] Devi Vieyradarin CLINICAL GENETICS LABORATORY CHIEF Work Phone: [facility] 05-23-2024 08:50-0400 Body height 168.3 cm Jovany Ovalle DO Work Phone: [facility] 05-23-2024 08:50-0400 Body mass index (BMI) [Ratio] 29.15 kg/m2 Jovany Ovalle DO Work Phone: [facility] 05-23-2024 08:50-0400 Body weight 82.56 kg Jovany Ovalle Work Phone: [facility] 05-22-2024 08:44-0400 Diastolic blood pressure 70 mm[Hg] Erlinda Chopra MD Work Phone: [facility] 05-22-2024 08:44-0400 Systolic blood pressure 164 mm[Hg] Erlinda Chopra MD Work Phone: [facility] 05-22-2024 08:40-0400 Body height 167.6 cm Erlinda Chopra MD Work Phone: [facility] 05-22-2024 08:40-0400 Body mass index (BMI) [Ratio] 29.05 kg/m2 Erlinda Chopra MD Work Phone: [facility] 05-22-2024 08:40-0400 Body temperature 97.5 [degF] Erlinda Chopra MD Work Phone: [facility] 05-22-2024 08:40-0400 Body weight 81.65 kg Erlinda Chopra MD Work Phone: [facility] 05-22-2024 08:40-0400 Heart rate 84 /min Erlinda Chopra MD Work Phone: [facility] 05-22-2024 08:40-0400 SaO2% (BldA) [Mass fraction] 98 % Erlinda Chopra MD Work Phone: [facility] 04-29-2024 10:20-0500 Body height 167.6 cm Rebeca Martinez MD Work Phone: [facility] 04-29-2024 10:20-0500 Body mass index (BMI) [Ratio] 28.89 kg/m2 Rebeca Martinez MD Work Phone: [facility] 04-29-2024 10:20-0500 Body weight 81.2 kg Rebeca Martinez MD Work Phone: [facility] 04-29-2024 10:20-0500 Diastolic blood pressure 70 mm[Hg] Rebeca Martinez MD Work Phone: [facility] 04-29-2024 10:20-0500 Heart rate 84 /min Rebeca Martinez MD Work Phone: [facility] 04-29-2024 10:20-0500 SaO2% (BldA) [Mass fraction] 98 % Rebeca Martinez MD Work Phone: [facility] 04-29-2024 10:20-0500 Systolic blood pressure 156 mm[Hg] Rebeca Martinez MD Work Phone: [facility] 03-19-2024 10:08-0500 Body mass index (BMI) [Ratio] 29.15 kg/m2 Devi Susanz CLINICAL GENETICS LABORATORY CHIEF Work Phone: [facility] 03-19-2024 10:08-0500 Body temperature 98.49 [degF] Devi Aichholz CLINICAL GENETICS LABORATORY CHIEF Work Phone: [facility] 03-19-2024 10:08-0500 Body weight 82.56 kg Devi Aichholz CLINICAL GENETICS LABORATORY CHIEF Work Phone: [facility] 03-19-2024 10:08-0500 Diastolic blood pressure 74 mm[Hg] Devi Aichholz CLINICAL GENETICS LABORATORY CHIEF Work Phone: [facility] 03-19-2024 10:08-0500 Heart rate 71 /min Devi Aichholz CLINICAL GENETICS LABORATORY CHIEF Work Phone: [facility] 03-19-2024 10:08-0500 Respiratory rate 19 /min Devi Aichholz CLINICAL GENETICS LABORATORY CHIEF Work Phone: [facility] 03-19-2024 10:08-0500 SaO2% (BldA) [Mass fraction] 99 % Devi Aichholz CLINICAL GENETICS LABORATORY CHIEF Work Phone: [facility] 03-19-2024 10:08-0500 Systolic blood pressure 128 mm[Hg] Devi Aichholz CLINICAL GENETICS LABORATORY CHIEF Work Phone: [facility] 02-25-2024 12:04-0500 Body height 168.3 cm 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 CLINICAL GENETICS LABORATORY CHIEF Work Phone: [facility] 02-25-2024 12:04-0500 Body mass index (BMI) [Ratio] 29.38 kg/m2 Devi Davisz CLINICAL GENETICS LABORATORY CHIEF Work Phone: [facility] 02-25-2024 12:04-0500 Body temperature 98.49 [degF] Devi Davisz CLINICAL GENETICS LABORATORY CHIEF Work Phone: [facility] 02-25-2024 12:04-0500 Body weight 83.19 kg 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 CLINICAL GENETICS LABORATORY CHIEF Work Phone: [facility] 02-25-2024 12:04-0500 Diastolic blood pressure 76 mm[Hg] Devi Davisz CLINICAL GENETICS LABORATORY CHIEF Work Phone: [facility] 02-25-2024 12:04-0500 Heart rate 67 /min Devi Davisz CLINICAL GENETICS LABORATORY CHIEF Work Phone: [facility] 02-25-2024 12:04-0500 Respiratory rate 19 /min Devi Davisz CLINICAL GENETICS LABORATORY CHIEF Work Phone: [facility] 02-25-2024 12:04-0500 SaO2% (BldA) [Mass fraction] 100 % Devi Davisz CLINICAL GENETICS LABORATORY CHIEF Work Phone: [facility] 02-25-2024 12:04-0500 Systolic blood pressure 152 mm[Hg] 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 CLINICAL GENETICS LABORATORY CHIEF Work Phone: [facility] 01-31-2024 11:25-0500 Body height 170.2 cm Erlinda Chopra MD Work Phone: [facility] 01-31-2024 11:25-0500 Body mass index (BMI) [Ratio] 28.5 kg/m2 Erlinda Chopra MD Work Phone: [facility] 01-31-2024 11:25-0500 Body temperature 98.01 [degF] Erlinda Chopra MD Work Phone: [facility] 01-31-2024 11:25-0500 Body weight 82.56 kg Erlinda Chopra MD Work Phone: [facility] 01-31-2024 11:25-0500 Diastolic blood pressure 72 mm[Hg] Erlinda Chopra MD Work Phone: [facility] 01-31-2024 11:25-0500 Heart rate 67 /min Erlinda Chopra MD Work Phone: [facility] 01-31-2024 11:25-0500 Respiratory rate 18 /min Erlinda Chopra MD Work Phone: [facility] 01-31-2024 11:25-0500 SaO2% (BldA) [Mass fraction] 93 % Erlinda Chopra MD Work Phone: [facility] 01-31-2024 11:25-0500 Systolic blood pressure 172 mm[Hg] Erlinda Chopra MD Work Phone: [facility] 01-18-2024 13:41-0500 Body height 168.3 cm Jovany Biedenzandra DO Work Phone: [facility] 01-18-2024 13:41-0500 Body mass index (BMI) [Ratio] 28.67 kg/m2 Jovnay Biedenbach DO Work Phone: [facility] 01-18-2024 13:41-0500 Body weight 81.19 kg Jovany Biedenbach DO Work Phone: [facility] 01-04-2024 13:51-0500 Body height 168.3 cm Jovany Biedenbach DO Work Phone: [facility] 01-04-2024 13:51-0500 Body mass index (BMI) [Ratio] 28.67 kg/m2 Jovany Biedenbach DO Work Phone: [facility] 01-04-2024 13:51-0500 Body weight 81.19 kg Jovany Biedenbach DO Work Phone: [facility] 12-18-2023 10:53-0400 Body height 168.3 cm 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 CLINICAL GENETICS LABORATORY CHIEF Work Phone: [facility] 12-18-2023 10:53-0400 Body mass index (BMI) [Ratio] 28.8 kg/m2 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 CLINICAL GENETICS LABORATORY CHIEF Work Phone: [facility] 12-18-2023 10:53-0400 Body temperature 97.11 [degF] 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 CLINICAL GENETICS LABORATORY CHIEF Work Phone: [facility] 12-18-2023 10:53-0400 Body weight 81.56 kg 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 CLINICAL GENETICS LABORATORY CHIEF Work Phone: [facility] 12-18-2023 10:53-0400 Diastolic blood pressure 72 mm[Hg] Devi Davisz CLINICAL GENETICS LABORATORY CHIEF Work Phone: [facility] 12-18-2023 10:53-0400 Heart rate 71 /min 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 CLINICAL GENETICS LABORATORY CHIEF Work Phone: [facility] 12-18-2023 10:53-0400 Respiratory rate 18 /min 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 CLINICAL GENETICS LABORATORY CHIEF Work Phone: [facility] 12-18-2023 10:53-0400 SaO2% (BldA) [Mass fraction] 99 % 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 CLINICAL GENETICS LABORATORY CHIEF Work Phone: [facility] 12-18-2023 10:53-0400 Systolic blood pressure 132 mm[Hg] 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 CLINICAL GENETICS LABORATORY CHIEF Work Phone: [facility] 11-08-2023 10:19-0400 Body height 168.3 cm Jovany Ovalle DO Work Phone: [facility] 11-08-2023 10:19-0400 Body mass index (BMI) [Ratio] 29.31 kg/m2 Jovany Maryamzandra DO Work Phone: [facility] 11-08-2023 10:19-0400 Body weight 83.01 kg Jovany Ovalle DO Work Phone: [facility] 10-19-2023 11:06-0400 Body height 168.91 cm [facility] 10-19-2023 11:06-0400 Body mass index (BMI) [Ratio] 28.6 kg/m2 [facility] 10-19-2023 11:06-0400 Body temperature 97.7 [degF] [facility] 10-19-2023 11:06-0400 Body weight 81.7 kg [facility] 10-19-2023 11:06-0400 Diastolic blood pressure 81 mm[Hg] [facility] 10-19-2023 11:06-0400 Heart rate 68 /min [facility] 10-19-2023 11:06-0400 Respiratory rate 16 /min [facility] 10-19-2023 11:06-0400 SaO2% (BldA) [Mass fraction] 95 % [facility] 10-19-2023 11:06-0400 Systolic blood pressure 132 mm[Hg] [facility] 07-12-2023 10:20-0400 Body height 167.6 cm Pacc 2 Work Phone: [facility] 07-12-2023 10:20-0400 Body mass index (BMI) [Ratio] 29.53 kg/m2 Pacc 2 Work Phone: [facility] 07-12-2023 10:20-0400 Body temperature 97.39 [degF] Pacc 2 Work Phone: [facility] 07-12-2023 10:20-0400 Body weight 83 kg Pacc 2 Work Phone: [facility] 07-12-2023 10:20-0400 Diastolic blood pressure 73 mm[Hg] Pacc 2 Work Phone: [facility] 07-12-2023 10:20-0400 Heart rate 75 /min Pacc 2 Work Phone: [facility] 07-12-2023 10:20-0400 Respiratory rate 16 /min Pacc 2 Work Phone: [facility] 07-12-2023 10:20-0400 SaO2% (BldA) [Mass fraction] 99 % Pacc 2 Work Phone: [facility] 07-12-2023 10:20-0400 Systolic blood pressure 156 mm[Hg] Pacc 2 Work Phone: [facility] 06-19-2023 08:23-0400 Body height 167.6 cm Rebeca Martinez MD Work Phone: [facility] 06-19-2023 08:23-0400 Body mass index (BMI) [Ratio] 30.51 kg/m2 Rebeca Martinez MD Work Phone: [facility] 06-19-2023 08:23-0400 Body temperature 98.01 [degF] Rebeca Martinez MD Work Phone: [facility] 06-19-2023 08:23-0400 Body weight 85.73 kg Rebeca Martinze MD Work Phone: [facility] 06-19-2023 08:23-0400 Diastolic blood pressure 77 mm[Hg] Rebeca Martinez MD Work Phone: [facility] 06-19-2023 08:23-0400 Heart rate 101 /min Rebeca Martinez MD Work Phone: [facility] 06-19-2023 08:23-0400 SaO2% (BldA) [Mass fraction] 99 % Rebeca Martinez MD Work Phone: [facility] 06-19-2023 08:23-0400 Systolic blood pressure 178 mm[Hg] Rebeca Martinez MD Work Phone: [facility] Encounters Encounter Date Encounter Type Care Provider Facility Start: 07-02-2024 End: 07-02-2024 Clinisync Result Encounter 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 NP Work Phone: [facility] External Department Unsolicited Start: 07-02-2024 End: 07-02-2024 Clinisync Result Encounter Devi Thania CLINICAL GENETICS LABORATORY CHIEF Work Phone: [facility] External Department Unsolicited Start: 07-01-2024 End: 07-01-2024 Refill Devi Thania CLINICAL GENETICS LABORATORY CHIEF Work Phone: [facility] Comment on above: Primary hypertension (CMS/HCC) Start: 06-24-2024 End: 06-24-2024 Orders Only Devi Thania CLINICAL GENETICS LABORATORY CHIEF Work Phone: [facility] Comment on above: Primary hypertension (CMS/HCC) (Primary Dx); Cigarette nicotine dependence without complication; Other fatigue; Mixed hyperlipidemia (CMS/HCC) Start: 06-20-2024 End: 06-20-2024 Clinisync Result Encounter Devi Thania CLINICAL GENETICS LABORATORY CHIEF Work Phone: [facility] External Department Unsolicited Start: 06-20-2024 End: 06-20-2024 Clinisync Result Encounter Devi Thania CLINICAL GENETICS LABORATORY CHIEF Work Phone: [facility] External Department Unsolicited Start: 06-19-2024 End: 06-19-2024 Bamboo flowsheet Devi Thania CLINICAL GENETICS LABORATORY CHIEF Work Phone: [facility] Start: 06-19-2024 End: 06-19-2024 Bamboo flowsheet Devi Thania CLINICAL GENETICS LABORATORY CHIEF Work Phone: [facility] Start: 06-19-2024 End: 06-19-2024 Office outpatient visit 25 minutes Devi Thania CLINICAL GENETICS LABORATORY CHIEF Work Phone: [facility] Comment on above: Primary hypertension (CMS/HCC) (Primary Dx); Pulmonary emphysema, unspecified emphysema type (CMS/HCC); Cigarette nicotine dependence without complication; Screening for prostate cancer; Iron deficiency anemia, unspecified iron deficiency anemia type; Upset stomach Start: 06-19-2024 End: 06-19-2024 ambulatory DEVI JOHNHOLClau Not Available Start: 05-23-2024 End: 05-23-2024 Bamboo flowsheet Jovany Ovalle DO Work Phone: [facility] Start: 05-23-2024 End: 05-23-2024 Bamboo flowsheet Jovany Ovalle DO Work Phone: [facility] Start: 05-23-2024 End: 05-23-2024 Office outpatient visit 25 minutes Jovany Ovalle DO Work Phone: [facility] Comment on above: Dysphagia, unspecifi ed type (Primary Dx); Gastroesophageal reflux disease with esophagitis, unspecified whether hemorrhage; Tobacco abuse; Decreased hearing of both ears; History of mastoidectomy Start: 05-23-2024 End: 05-23-2024 ambulatory JOVANY OVALLE Not Available Start: 05-22-2024 End: 05-22-2024 Office outpatient visit 25 minutes [facility] MD [facility] Comment on above: Bilateral carotid ar gerald stenosis (Primary Dx); Claudication ([facility]); Encounter for abdominal aortic aneurysm (AAA) screening Start: 05-22-2024 End: 05-22-2024 [facility] Start: 04-29-2024 End: 04-29-2024 Office outpatient visit 25 minutes Rebeca Martinez MD Work Phone: Neurosurgery Comment on above: Cervical vertebral f usion (Primary Dx) Start: 04-29-2024 End: 04-29-2024 ambulatory DEVI MONTEIRO Facility:[facility] Start: 04-29-2024 End: 04-29-2024 Subsequent hospital visit by physician [facility] Radiology Comment on above: Cervical vertebral f usion [M43.22] Start: 03-20-2024 End: 03-20-2024 Clinisync Result Encounter 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 NP Work Phone: [facility] External Department Unsolicited Start: 03-20-2024 End: 03-20-2024 Clinisync Result Encounter Devi Aichholz CLINICAL GENETICS LABORATORY CHIEF Work Phone: [facility] External Department Unsolicited Start: 03-19-2024 End: 03-19-2024 Bamboo flowsheet Devi Davisclau CLINICAL GENETICS LABORATORY CHIEF Work Phone: [facility] Start: 03-19-2024 End: 03-19-2024 Bamboo flowsheet Devi Davisclau CLINICAL GENETICS LABORATORY CHIEF Work Phone: [facility] Start: 03-19-2024 End: 03-19-2024 Office outpatient visit 25 minutes Devi Vieyradarin CLINICAL GENETICS LABORATORY CHIEF Work Phone: [facility] Comment on above: Primary hypertension (CMS/HCC) (Primary Dx); Centrilobular emphysema (CMS/HCC); Asymptomatic bilateral carotid artery stenosis; Dysphagia, unspecified type; BMI 29.0-29.9,adult; Iron deficiency anemia, unspecified iron deficiency anemia type; Cigarette smoker; Thyroid nodule (CMS/HCC); Statin intolerance Start: 03-19-2024 End: 03-19-2024 ambulatory DEVI AICHHOLZ Not Available Start: 02-25-2024 End: 02-25-2024 Bamboo flowsheet Devi Vieyradarin CLINICAL GENETICS LABORATORY CHIEF Work Phone: [facility] Start: 02-25-2024 End: 02-25-2024 Bamboo flowsheet Devi Davisclau CLINICAL GENETICS LABORATORY CHIEF Work Phone: [facility] Start: 02-25-2024 End: 02-25-2024 Office outpatient visit 15 minutes Devi Fátimachuydarin CLINICAL GENETICS LABORATORY CHIEF Work Phone: [facility] Comment on above: Acute non-recurrent frontal sinusitis (Primary Dx); COPD exacerbation (CMS/HCC); Tobacco user; Pulmonary emphysema, unspecified emphysema type (CMS/HCC); Rash Start: 02-25-2024 End: 02-25-2024 ambulatory DEVI AICHHOLZ Not Available Start: 02-08-2024 End: 02-08-2024 Bamboo flowsheet Jovany Ovalle DO Work Phone: [facility] Start: 02-08-2024 End: 02-08-2024 Bamboo flowsheet Jovany Maya Biedenbach DO Work Phone: [facility] Start: 02-08-2024 End: 02-08-2024 ambulatory JOVANY OVALLE Not Available Start: 01-31-2024 End: 01-31-2024 Office outpatient visit 25 minutes Erlinda [facility]opra MD [facility] Comment on above: Peripheral vascular disease ([facility]-HCC) (Primary Dx); Bilateral carotid artery stenosis; Cigarette smoker Start: 01-18-2024 End: 01-18-2024 Bamboo flowsheet Jovany S Biedenbach DO Work Phone: [facility] Start: 01-18-2024 End: 01-18-2024 Bamboo flowsheet Jovany Maya Biedenbach DO Work Phone: [facility] Start: 01-18-2024 End: 01-18-2024 Office outpatient visit 25 minutes Jovany Ovalle DO Work Phone: [facility] Comment on above: Gastroesophageal ref lux disease with esophagitis, unspecified whether hemorrhage (Primary Dx); Dysphagia, unspecified type Start: 01-18-2024 End: 01-18-2024 ambulatory JOVANY OVALLE Not Available Start: 01-10-2024 End: 01-10-2024 Patient encounter procedure 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 Work Phone: [facility] Work Phone: Start: 01-10-2024 End: 01-10-2024 ambulatory 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 Work Phone: [facility] Work Phone: Start: 01-04-2024 End: 01-04-2024 Bamboo flowsheet Jovany S Biedenbach DO Work Phone: [facility] Start: 01-04-2024 End: 01-04-2024 Bamboo flowsheet Jovany Ovalle DO Work Phone: [facility] Start: 01-04-2024 End: 01-04-2024 Office outpatient visit 15 minutes Jovany Ovalle DO Work Phone: [facility] Comment on above: Dysphagia, unspecifi ed type (Primary Dx); History of mastoidectomy Start: 01-04-2024 End: 01-04-2024 ambulatory JOVANY OVALLE Not Available Start: 12-18-2023 End: 12-18-2023 Bamboo flowsheet 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 CLINICAL GENETICS LABORATORY CHIEF Work Phone: [facility] Start: 12-18-2023 End: 12-18-2023 Bamboo flowsheet 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 CLINICAL GENETICS LABORATORY CHIEF Work Phone: [facility] Start: 12-18-2023 End: 12-18-2023 Patient encounter procedure 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 CLINICAL GENETICS LABORATORY CHIEF Work Phone: [facility] Comment on [...] End: 12-11-2023 Clinisync Result Encounter 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 CLINICAL GENETICS LABORATORY CHIEF Work Phone: [facility] External Department Unsolicited Start: 12-11-2023 End: 12-11-2023 Clinisync Result Encounter 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 CLINICAL GENETICS LABORATORY CHIEF Work Phone: [facility] External Department Unsolicited Start: 12-10-2023 End: 12-10-2023 Orders Only 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 CLINICAL GENETICS LABORATORY CHIEF Work Phone: [facility] Comment on above: Primary hypertension (CMS/HCC) (Primary Dx); Anemia, unspecified type Start: 11-08-2023 End: 11-08-2023 Bamboo flowsheet Jovany Ovalle DO Work Phone: [facility] Start: 11-08-2023 End: 11-08-2023 Bamboo flowsheet Jovany Ovalle DO Work Phone: [facility] Start: 11-08-2023 End: 11-08-2023 Office outpatient visit 25 minutes Jovany Trejo Tategreggchaitanya DO Work Phone: [facility] Comment on above: History of mastoidec michael (Primary Dx); Decreased hearing of both ears; Dysfunction of Eustachian tube, unspecified laterality; Tobacco abuse Start: 11-08-2023 End: 11-08-2023 ambulatory JOVANY MOYERERICKZANDRA Not Available Start: 10-19-2023 End: 10-19-2023 ambulatory [facility] Work Phone: Start: 10-19-2023 End: 10-19-2023 Patient encounter procedure [facility] Work Phone: Start: 10-18-2023 End: 10-18-2023 Telephone encounter Rebeca Martinez MD Work Phone: Neurosurgery Comment on above: Received Outside Med [facility] Records Start: 09-03-2023 Telephone encounter Berny Martinez MD Work Phone: Neurology Comment on above: Claims Assistant - O ther Start: 08-27-2023 Telephone encounter Berny Martinez MD Work Phone: Neurology Comment on above: Patient Question Start: 08-23-2023 End: 08-23-2023 ambulatory REBECA MARTINEZ Facility:[facility] Start: 08-23-2023 End: 08-23-2023 Patient encounter procedure Rebeca Martinez MD Work Phone: [facility] [place] Comment on above: Cervical vertebral f usion (Primary Dx) Start: 07-30-2023 End: 07-30-2023 ambulatory DEVI MONTEIRO Facility:[facility] Start: 07-24-2023 End: 07-24-2023 ambulatory DEVI MONTEIRO Not Available Start: 07-16-2023 End: 07-16-2023 ambulatory DEVI MONTEIRO Not Available Start: 07-13-2023 Telephone encounter Clovis Gunderson APRN.CNP Work Phone: Ambulatory Surgery Comment on above: Medication Problem Start: 07-12-2023 End: 07-12-2023 Admission to establishment [facility] 2 Work Phone: Pre Anesthesia Start: 07-12-2023 End: 07-12-2023 ambulatory CLOVIS GUNDERSON Facility:[facility] Start: 07-12-2023 End: 07-12-2023 Anesthesia consultation [facility] 2 Work Phone: Pre Anesthesia Comment on above: Pre-op examination ( Primary Dx); Chronic obstructive pulmonary disease, unspecified COPD type (HCC); Primary hypertension; Chronic kidney disease, unspecified CKD stage; Essential (primary) hypertension; Tobacco user; Stenosis of left carotid artery; Anemia, unspecified type; COPD exacerbation (HCC); Peripheral vascular disease (HCC) Start: 07-12-2023 Encounter for other preprocedural examination REBECA MARTINEZ [facility] Start: 07-12-2023 End: 07-12-2023 Preprocedural examination done Pac Winkler 2 Work Phone: [facility] Work Phone: Start: 06-20-2023 Telephone encounter Berny Martinez MD Work Phone: Neurology Comment on above: Received Outside Med ical Records Start: 06-19-[facility]23 [facility] [facility] Rebeca Martinez MD Work Phone: Neurosurgery Start: 06-19-2023 End: 06-19-2023 ambulatory Rebeca Martinez MD Work Phone: Neurosurgery Start: 06-19-2023 Patient encounter status Satya Martinez MD Work Phone: [facility] Start: 06-19-2023 End: 06-19-2023 Subsequent hospital visit by physician Maritza Leo [facility] Radiology Comment on above: 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] Start: 06-19-2023 End: 06-19-2023 Patient encounter procedure Rebeca Martinez MD Work Phone: Neurosurgery Comment on above: 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 (Primary Dx); Cervical cord myelomalacia (HCC) Start: 04-10-2023 Clinisync Result Encounter Jessica Monteiro [employer] GENETICS LABORATORY CHIEF Work Phone: [facility] External Department Unsolicited Start: 04-10-2023 Clinisync Result Encounter Jessica Monteiro [employer]ICAL GENETICS LABORATORY CHIEF Work Phone: [facility] External Department Unsolicited Start: 07-25-2022 End: 07-26-2022 ambulatory 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 DEVI MONTEIRO Facility:H1 Start: 07-20-2022 End: 07-21-2022 ambulatory 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 DEVI THANIA Facility:[facility]1 Start: 06-11-2022 End: 06-11-[address] BART AL Facility:[facility]1 Start: 05-24-2022 End: 05-25-[address] SAVAGE OATES Facility:[facility]1 Start: 03-16-2022 End: 03-17-2022 ambulatory 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 DEVI MONTEIRO Facility:[facility]1 Start: 02-24-2022 End: 02-25-2022 ambulatory 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 DEVI MONTEIRO Facility:[facility]1 Start: 01-02-2022 End: 01-03-2022 ambulatory 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 DEVI THANIA Facility:[facility]1 Start: 10-29-2021 End: 10-30-[address] SAVAGE OATES Facility:[facility]1 Start: 07-27-2020 End: 10-31-2022 Patient encounter status 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 [employer] GENETICS LABORATORY CHIEF Work Phone: [facility] Procedures Date Procedure Procedure Detail Performing Clinician Start: 07-02-2024 NM DARCIE PERF SPECT RE ST STR Devi Aichholz [employer]ET[employer] LABORAT[employer] CHIEF Work Phone: Start: 06-20-2024 ALL CBC WITH AUTO DIFF Devi Aichholz CL[employer]ICAL GENETICS LABORATORY CHIEF Work Phone: Start: 03-20-2024 ALL CBC WITH AUTO DIFF Devi Aichholz CL[employer]ICAL GENETICS LABORATORY CHIEF Work Phone: Start: 03-20-2024 ALL LIPID PROFILE (FASTING) Devi Aichholz [employer]ICAL GENETICS LABORATORY CHIEF Work Phone: Start: 03-20-2024 ALL THYROID STIM HORMONE Devi Aichholz CL[employer]ICAL GENETICS LABORATORY CHIEF Work Phone: Start: 03-20-2024 ALL THYROXINE (T4) FREE Devi Aichholz CL[employer]ICAL GENETICS LABORATORY CHIEF Work Phone: Start: 03-20-2024 [facility] CMP (CMP) (FOR REMOTE [facility] USE) Devi Aichholz CLINICAL GENETICS LABORATORY CHIEF Work Phone: Start: 03-20-2024 [facility] FERRITIN Devi Aichh olz CL[employer]ICAL GENETICS LABORATORY CHIEF Work Phone: Start: 03-20-2024 METRO IRON AND TIBC Lis a Aichholz CL[employer] GENETICS LABORATORY CHIEF Work Phone: Start: 03-20-2024 TB MICROALB CREAT RATIO RANDOM Devi Aichholz CL[employer]ICAL GENETICS LABORATORY CHIEF Work Phone: Start: 03-20-2024 TB UA (CLEAN/CATCH) MICROSCOPIC IF INDICATE Devi Aichholz CL[employer]ICAL GENETICS LABORATORY CHIEF Work Phone: Start: 12-11-2023 ALL CBC WITH AUTO DIFF Devi Aichholz CL[employer]ICAL GENET[employer] LABORATORY CHIEF Work Phone: Start: 07-12-2023 Antibody screen DIXON MARTINEZ Comment on above: Order Comment: Speci men Type: BLOOD SPECIMEN Ordering Facility: [facility] Address: [address] [place] [id number] Performed By: #### 3 [id number], [id number] #### [facility] CLIA [id number] [address] [place] [address] [place] Start: 07-12-2023 Ecg routine ecg w/least 12 lds i&r only Clovis Gunderson APRN.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 Work Phone: Start: 04-10-2023 ALL CBC WITH AUTO DIFF 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 CL[employer] GENETICS LABORATORY CHIEF Work Phone: Start: 01-02-2022 PSA screening VENITA MONTEIRO Comment on above: Performed By: #### F T4, PSASC ####[place] [address] [place] [address]Dr. Felicitawalker Killian H/O: surgery History of mastoidectomy Linda l S Biedenbach DO Work Phone: H/O: surgery History of mastoidectomy Linda l S Biedenbach DO Work Phone: H/O: surgery History of mastoidectomy Linda l S Biedenbach DO Work Phone: Plan of Treatment Date Care Activity Detail Author Start: 02-17-2029 DTaP,Tdap and Td Vaccines (3 - Td or Tdap) DTaP,Tdap and Td Vaccines (3 - Td or Tdap) [facility] Start: 02-17-2029 Urine microalbumin profile DTaP,Tdap,Td Vaccine (3 - Td or Tdap) [facility] Start: 08-07-2026 Diabetes Screening Diabetes Screening [facility] Start: 07-11-2026 Diabetes Screening Diabetes Screening [facility] Start: 05-22-2025 End: 05-22-2025 US Abdominal Aorta for screening Ultrasound abdominal aorta for AAA screening Imaging Routine Encounter for abdominal aortic aneurysm (AAA) screening Expected: 05/22/2025 (Approximate), Expires: 05/22/2025 [facility] Comment on above: Expected: 05/22/2025 (Approximate), Expi res: 05/22/2025 Start: 05-22-2025 End: 05-22-2025 US Carotid arteries - bilateral Vas carotid duplex bilateral Vascular Ultrasound Routine Bilateral carotid artery stenosis Expected: 05/22/2025 (Approximate), Expires: 05/22/2025 [facility] Comment on above: Expected: 05/22/2025 (Approximate), Expi res: 05/22/2025 Start: 05-22-2025 End: 05-22-2025 US.doppler Extremity arteries - bilateral for physiologic artery study Vas art doppler lwr bilat mult lev/PVR Vascular Ultrasound Routine Claudication ([facility] Expected: 05/22/2025 (Approximate), Expires: 05/22/2025 [facility] Work Phone: Comment on above: Expected: 05/22/2025 (Approximate), Expi res: 05/22/2025 Start: 03-12-2025 End: 03-12-2025 Patient encounter procedure 03/12/2025 1:00 PM EST Office Visit [facility] [place] [address] Erlinda Chopra MD [address], [address] [address] [facility] [place] Start: 01-30-2025 End: 01-30-2025 US Carotid arteries - bilateral Vas carotid duplex bilateral Vascular Ultrasound Routine Peripheral vascular disease ([facility]) Bilateral carotid artery stenosis Cigarette smoker Expected: 01/30/2025 (Approximate), Expires: 01/30/2025 [facility] Work Phone: Comment on above: Expected: 01/30/2025 (Approximate), Expi res: 01/30/2025 Start: 11-24-2024 End: 11-24-2024 Patient encounter procedure 11/24/2024 9:15 AM EDT Office Visit [facility] [address] [place] [phone] Jovany Ovalle DO [address] [place] [address] [facility] Start: 09-22-2024 End: 09-22-2024 Patient encounter procedure 09/22/2024 9:40 AM EDT Office Visit [facility] [address] [place] [phone] 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, SHANNON [address] [place] [address] [facility] Start: 09-02-2024 End: 09-02-2024 Patient encounter procedure 09/02/2024 1:40 PM EDT Office Visit Neurosurgery [address] [place] [address] [place] [address] [facility] [address] [facility] F/U Neurosurgery Comment on above: [facility] F/U Start: 06-24-2024 End: 06-24-2026 Echocardiogram 2D complete Echocardiogram 2D complete Echocardiography Routine Primary hypertension (CMS/HCC) Cigarette nicotine dependence without complication Other fatigue Mixed hyperlipidemia (CMS/HCC) Expected: 06/24/2024 (Approximate), Expires: 06/24/2026 [facility] Comment on above: Expected: 06/24/2024 (Approximate), Expi res: 06/24/2026 Start: 06-24-2024 End: 06-24-2026 NM Heart Perfusion W adenosine and W radionuclide IV STRESS [facility]LE[facility]IC[facility] Cardiac Nuclear Medicine Routine Primary hypertension (CMS/HCC) Cigarette nicotine dependence without complication Other fatigue Mixed hyperlipidemia (CMS/HCC) Expected: 06/24/2024 (Approximate), Expires: 06/24/2026 [facility] Work Phone: Comment on above: Expected: 06/24/2024 (Approximate), Expi res: 06/24/2026 Start: 06-19-2024 End: 06-19-2025 Basic metabolic 1998 panel - Serum or Plasma Basic metabolic panel Lab Routine Primary hypertension (CMS/HCC) Expected: 06/19/2024 (Approximate), Expires: 06/19/2025 [facility] Comment on above: Expected: 06/19/2024 (Approximate), Expi res: 06/19/2025 Start: 06-19-2024 End: 06-19-2025 CBC W Auto Differential panel - Blood CBC and differential Lab Routine Iron deficiency anemia, unspecified iron deficiency anemia type Expected: 06/19/2024 (Approximate), Expires: 06/19/2025 [facility] Work Phone: Comment on above: Expected: 06/19/2024 (Approximate), Expi res: 06/19/2025 Start: 06-19-2024 End: 06-19-2025 Ferritin [Mass/volume] in Serum or Plasma Ferritin Lab Routine Iron deficiency anemia, unspecified iron deficiency anemia type Expected: 06/19/2024 (Approximate), Expires: 06/19/2025 [facility] Comment on above: Expected: 06/19/2024 (Approximate), Expi res: 06/19/2025 Start: 06-19-2024 End: 06-19-2025 Iron + transferrin + TIBC Iron + transferrin + TIBC Lab Routine Iron deficiency anemia, unspecified iron deficiency anemia type Expected: 06/19/2024 (Approximate), Expires: 06/19/2025 [facility] Comment on above: Expected: 06/19/2024 (Approximate), Expi res: 06/19/2025 Start: 06-19-2024 End: 06-19-2025 Microalbumin/Creatinine panel in random Urine Microalbumin / creatinine, urine ratio Lab Routine Primary hypertension (CMS/HCC) Expected: 06/19/2024 (Approximate), Expires: 06/19/2025 [facility] Comment on above: Expected: 06/19/2024 (Approximate), Expi res: 06/19/2025 Start: 06-19-2024 End: 06-19-2025 Prostate specific Ag [Mass/volume] in Serum or Plasma PSA Lab Routine Screening for prostate cancer Expected: 06/19/2024 (Approximate), Expires: 06/19/2025 [facility] Comment on above: Expected: 06/19/2024 (Approximate), Expi res: 06/19/2025 Start: 06-19-2024 End: 06-19-2025 Urinalysis complete panel - Urine Urinalysis with reflex microscopic (clean catch) Lab Routine Primary hypertension (CMS/HCC) Expected: 06/19/2024 (Approximate), Expires: 06/19/2025 [facility] Comment on above: Expected: 06/19/2024 (Approximate), Expi res: 06/19/2025 Start: 06-19-2024 End: 06-19-2024 Patient encounter procedure [facility] Comment on above: Pulmonary emphysema, unspecified emphyse ma type (CMS/HCC) (Primary Dx); Primary hypertension (CMS/HCC); Cigarette smoker; Cigarette nicotine dependence without complication; Anemia, unspecified type Start: 06-09-2024 Covid-19 Vaccine () Covid-19 Vaccine () [facility] Start: 05-23-2024 End: 05-23-2024 Patient encounter procedure 05/23/2024 9:00 AM EDT Office Visit [facility] [address] [place] [phone] Jovany Ovalle DO [address] [place] [address] Arrived [facility] Comment on above: Arrived Start: 05-09-2024 End: 05-09-2024 Patient encounter procedure [facility] Start: 03-19-2024 End: 03-19-2025 CBC W Auto Differential panel - Blood CBC and differential Lab Routine Iron deficiency anemia, unspecified iron deficiency anemia type Expected: 03/19/2024 (Approximate), Expires: 03/19/2025 [facility] Work Phone: Comment on above: Expected: 03/19/2024 (Approximate), Expi res: 03/19/2025 Start: 03-19-2024 End: 03-19-2025 Comprehensive metabolic 2000 panel - Serum or Plasma Comprehensive metabolic panel Lab Routine Primary hypertension (CMS/HCC) Expected: 03/19/2024 (Approximate), Expires: 03/19/2025 [facility] Comment on above: Expected: 03/19/2024 (Approximate), Expi res: 03/19/2025 Start: 03-19-2024 End: 03-19-2025 Ferritin [Mass/volume] in Serum or Plasma Ferritin Lab Routine Iron deficiency anemia, unspecified iron deficiency anemia type Expected: 03/19/2024 (Approximate), Expires: 03/19/2025 [facility] Comment on above: Expected: 03/19/2024 (Approximate), Expi res: 03/19/2025 Start: 03-19-2024 End: 03-19-2025 Iron + transferrin + TIBC Iron + transferrin + TIBC Lab Routine Iron deficiency anemia, unspecified iron deficiency anemia type Expected: 03/19/2024 (Approximate), Expires: 03/19/2025 [facility] Comment on above: Expected: 03/19/2024 (Approximate), Expi res: 03/19/2025 Start: 03-19-2024 End: 03-19-2025 Lipid 1996 panel - Serum or Plasma Lipid panel Lab Routine Asymptomatic bilateral carotid artery stenosis Expected: 03/19/2024 (Approximate), Expires: 03/19/2025 [facility] Comment on above: Expected: 03/19/2024 (Approximate), Expi res: 03/19/2025 Start: 03-19-2024 End: 03-19-2025 Microalbumin/Creatinine panel in random Urine Microalbumin / creatinine, urine ratio Lab Routine Primary hypertension (CMS/HCC) Expected: 03/19/2024 (Approximate), Expires: 03/19/2025 [facility] Comment on above: Expected: 03/19/2024 (Approximate), Expi res: 03/19/2025 Start: 03-19-2024 End: 03-19-2025 Thyrotropin [Units/volume] in Serum or Plasma TSH Lab Routine Thyroid nodule (CMS/HCC) Expected: 03/19/2024 (Approximate), Expires: 03/19/2025 [facility] Comment on above: Expected: 03/19/2024 (Approximate), Expi res: 03/19/2025 Start: 03-19-2024 End: 03-19-2025 Thyroxine (T4) free [Mass/volume] in Serum or Plasma T4, free Lab Routine Thyroid nodule (CMS/HCC) Expected: 03/19/2024 (Approximate), Expires: 03/19/2025 [facility] Comment on above: Expected: 03/19/2024 (Approximate), Expi res: 03/19/2025 Start: 03-19-2024 End: 03-19-2025 Urinalysis complete panel - Urine Urinalysis with reflex microscopic (clean catch) Lab Routine Primary hypertension (CMS/HCC) Cigarette smoker Expected: 03/19/2024 (Approximate), Expires: 03/19/2025 [facility] Comment on above: Expected: 03/19/2024 (Approximate), Expi res: 03/19/2025 Start: 03-19-2024 End: 03-19-2024 Patient encounter procedure 03/19/2024 10:30 AM EST Office Visit [facility] [address] [place] [address] 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, SHANNON [address] [place] [phone] Asymptomatic bilateral carotid artery stenosis (Primary Dx); Centrilobular emphysema (CMS/HCC); Primary hypertension (CMS/HCC); Dysphagia, unspecified type; BMI 29.0-29.9,adult; Iron deficiency anemia, unspecified iron deficiency anemia type; Cigarette smoker [facility] Comment on above: Asymptomatic bilateral carotid artery st enosis (Primary Dx); Centrilobular emphysema (CMS/HCC); Primary hypertension (CMS/HCC); Dysphagia, unspecified type; BMI 29.0-29.9,adult; Iron deficiency anemia, unspecified iron deficiency anemia type; Cigarette smoker Start: 03-18-2024 End: 03-18-2024 Patient encounter procedure 03/18/2024 9:20 AM EST Office Visit [facility] [address] [place] [address] 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 NP [address] [place] [phone] [facility] Start: 02-27-2024 Advance Directive Discussion Advance Directive Discussion [facility] Start: 02-25-2024 End: 02-25-2024 Patient encounter procedure 02/25/2024 11:45 AM EST Office Visit [facility] [address] [place] [address] 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 NP [address] [place] [address] Arrived [facility] Comment on above: Arrived Start: 02-21-2024 End: 02-21-2024 Patient encounter procedure [facility] Radiology General Comment on above: Cervical vertebral fusion [M43.22] 6 MONTH FOLLOW UP Start: 02-08-2024 End: 02-08-2024 Patient encounter procedure [facility] Comment on above: Arrived Start: 01-31-2024 End: 01-30-2025 US.doppler Extremity arteries - bilateral for physiologic artery study Vas art doppler lwr bilat mult lev/PVR Vascular Ultrasound Routine Peripheral vascular disease ([facility]) Bilateral carotid artery stenosis Cigarette smoker Expected: 01/31/2024, Expires: 01/30/2025 [facility] Comment on above: Expected: 01/31/2024, Expires: Start: 01-18-2024 End: 01-18-2024 Patient encounter procedure [facility] Comment on above: Arrived Start: 01-05-2024 Tobacco Screening Tobacco Screening [facility] Start: 01-04-2024 End: 01-04-2024 Patient encounter procedure 01/04/2024 2:00 PM EST Office Visit [facility] [address] [place] [address] Jovany Ovalle DO [address] [place] [address] Dysphagia, unspecified type [facility] Comment on above: Dysphagia, unspecified type Start: 01-04-2024 End: 01-03-2025 RF Esophagus Views W barium contrast PO FL MODIFIED BARIUM SWALLOW Imaging STAT Dysphagia, unspecified type Expected: 01/04/2024, Expires: 01/03/2025 [facility] Comment on above: Expected: 01/04/2024, Expires: Start: 01-04-2024 End: 01-03-2025 RF Pharynx and Cervical esophagus Views W barium contrast PO FL esophagus pharynx Imaging STAT Dysphagia, unspecified type Expected: 01/04/2024 (Approximate), Expires: 01/03/2025 [facility] Work Phone: Comment on above: Expected: 01/04/2024 (Approximate), Expi res: 01/03/2025 Start: 12-18-2023 End: 12-18-2023 Patient encounter procedure [facility] Comment on above: Tobacco user (Primary Dx) Start: 12-10-2023 End: 12-09-2024 Basic metabolic 1998 panel - Serum or Plasma Basic metabolic panel Lab Routine Primary hypertension (CMS/HCC) Expected: 12/10/2023 (Approximate), Expires: 12/09/2024 [facility] Comment on above: Expected: 12/10/2023 (Approximate), Expi res: 12/09/2024 Start: 12-10-2023 End: 12-09-2024 CBC W Auto Differential panel - Blood CBC and differential Lab Routine Anemia, unspecified type Expected: 12/10/2023 (Approximate), Expires: 12/09/2024 [facility] Work Phone: Comment on above: Expected: 12/10/2023 (Approximate), Expi res: 12/09/2024 Start: 12-10-2023 End: 12-09-2024 Iron + transferrin + TIBC Iron + transferrin + TIBC Lab Routine Anemia, unspecified type Expected: 12/10/2023 (Approximate), Expires: 12/09/2024 [facility] Comment on above: Expected: 12/10/2023 (Approximate), Expi res: 12/09/2024 Start: 11-08-2023 End: 11-08-2023 Patient encounter procedure 11/08/2023 10:15 AM EDT Office Visit [facility] [address] [place] [address] Jovany Ovalle DO [address] [place] [address] Arrived [facility] Comment on above: Arrived Start: 10-28-2023 Influenza vaccination Influenza Vaccine (#1) [place] [facility] Start: 08-25-2023 Diabetes Screening Diabetes Screening [facility] Start: 08-23-2023 End: 08-23-2023 Patient encounter procedure 08/23/2023 11:40 AM EDT Office Visit [facility] [address] [place] [address] [place] [address] [place] [address] post op- 6/10 ARTHRODESIS ANTERIOR DISC PREP DISCECTOMY OSTEOPHYTECTOMY & DECOMPRESS NERVE ROOTS C' BELOW C2 [facility] Comment on above: post op- /10 ARTHRODESIS ANTERIOR DISC PREP DISCECTOMY OSTEOPHYTECTOMY & DECOMPRESS NERVE ROOTS C' BELOW C2 Start: 08-06-2023 End: 08-06-2023 Admission to same day surgery center 08/06/2023 1:00 PM EDT - 08/06/2023 4:25 PM EDT Surgery [facility] Operating Room [address] [address] [place] [address] [place] [address] ARTHRODESIS ANTERIOR DISC PREP DISCECTOMY OSTEOPHYTECTOMY & DECOMPRESS NERVE ROOTS C' BELOW C2 [facility] Operating Room Comment on above: ARTHRODESIS ANTERIOR DISC PREP DISCECTOM Y OSTEOPHYTECTOMY & DECOMPRESS NERVE ROOTS C' BELOW [...] physician 08/06/2023 1:00 PM EDT Hospital Encounter [facility] Operating Room [address] [address] [place] [address] [place] [address] 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 APPROACH W/ DECOMPRESSION SPINAL CORD, 1 SEGMENT Cervical disc disorder with myelopathy of mid-cervical region 08/06/2023 1:00 PM EDT [facility] Start: 07-30-2023 End: 07-30-2023 Patient encounter procedure 07/30/2023 9:00 AM EDT Office Visit Financial Clearance Phone Screening [facility] SURGICAL REGISTRATION APPT [phone] Financial Clearance Phone Screening Comment on above: SURGICAL REGISTRATION APPT [phone] Start: 07-12-2023 End: 10-11-2023 TYPE AND SCREEN,30 DAY [facility] Work Phone: Comment on above: Expected: 07/12/2023, Expires: Start: 07-12-2023 End: 07-12-2023 Admission to establishment 07/12/2023 11:00 AM EDT PAT Pre Anesthesia [address] [place] [address] 2, Pacc [place] [address] [place] [address] Pre admission testing surgery 08/05 Pre Anesthesia Comment on above: Pre admission testing surgery 08/05 Start: 05-03-2023 End: 05-03-2023 Patient encounter procedure 05/03/2023 9:15 AM EST [facility] [address] [place] [phone] Jovany Ovalle, DO [address] [facility] [place] [address] [facility] Start: 04-24-2023 Covid-19 Vaccine () Covid-19 Vaccine () [facility] Start: 02-26-2023 Advance Directive Discussion Advance Directive Discussion [facility] Start: 02-26-2023 Behavioral Health Screening Behavioral Health Screening [facility] Start: 2016 RSV Vaccine (1 - 1-dose 75+ series) RSV Vaccine (1 - 1-dose 75+ series) [facility] Start: 2006 Fall Risk Screening Fall Risk Screening [facility] Start: 2001 RSV Vaccine (1 - 1-dose 60+ series) RSV Vaccine (1 - 1-dose 60+ series) [facility] Start: 07-09-1959 Anxiety Screening Anxiety Screening [facility] Start: 07-09-1959 Depression Screening Depression Screening [facility] Start: 07-09-1959 Spirometry Spirometry [facility] Start: 1953 Depression Screening Depression Screening [facility] ECG COMPLETE ECG COMPLETE ECG 07/12/2023 10:37 AM EDT [facility] End: 07-18-2024 XR CERV OTHER 4V AP/LAT/FLX/EXT XR CERV OTHER 4V AP/LAT/FLX/EXT Radiology Routine Cervical disc disorder with myelopathy of mid-cervical region 1 Occurrences starting 06/19/2023 until 07/18/2024 [facility] Work Phone: Comment on above: 1 Occurrences starting 06/19/2023 until 07/18/2024 XR CERV OTHER 4V AP/LAT/FLX/EXT XR CERV OTHER 4V AP/LAT/FLX/EXT Radiology Routine Cervical disc disorder with myelopathy of mid-cervical region 06/19/2023 10:23 AM EDT [facility] End: 09-21-2024 XR Cervical spine AP and Lateral XR CERV GENERAL 2V AP/LAT Radiology Routine Cervical vertebral fusion 1 Occurrences starting 08/23/2023 until 09/21/2024 [facility] Work Phone: Comment on above: 1 Occurrences starting 08/23/2023 until 09/21/2024 End: 05-29-2025 XR Cervical spine AP and Lateral XR CERV GENERAL 2V AP/LAT Radiology Routine Cervical vertebral fusion 1 Occurrences starting 04/29/2024 until 05/29/2025 [facility] Work Phone: Comment on above: 1 Occurrences starting 04/29/2024 until 05/29/2025 XR Cervical spine AP and Lateral XR CERV GENERAL 2V AP/LAT Radiology Routine Cervical vertebral fusion 04/29/2024 10:02 AM EST [facility] Work Phone: Immunizations Immunization Date Immunization Notes Care Provider [facility] 12-10-2023 influenza, high dose seasonal, preservative-free Jovnay Ovalle DO Work Phone: [facility] 12-10-2023 influenza virus vacc ine, unspecified formulation 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 [employer]IE[employer] Work Phone: [facility] 12-22-2022 Influenza, Seasonal, Quadrivalent, Adjuvanted Jovany Ovalle DO Work Phone: [facility] 12-22-2022 influenza virus vacc ine, unspecified formulation Rebeca Martinez MD Work Phone: [facility] 08-15-2022 Pneumococcal Conjuga te PCV 20 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 CL[employer]ICAL GENETICS LABORATORY CHIEF Work Phone: [facility] 12-26-2021 Influenza, High-dose Seasonal, Quadrivalent, Preservative Free Devi Aichholz [employer]ICAL GENETICS LABORATORY CHIEF Work Phone: [facility] 12-21-2020 influenza, injectabl e, quadrivalent, preservative free Devi Aichholz [employer]ICAL GENETICS LABORATORY CHIEF Work Phone: [facility] 12-01-2020 Influenza, Seasonal, Quadrivalent, Adjuvanted Devi Aichholz CL[employer]ICAL GENETICS LABORATORY CHIEF Work Phone: [facility] 11-16-2019 influenza, high dose seasonal, preservative-free Devi Aichholz CL[employer]ICAL GENETICS LABORATORY CHIEF Work Phone: [facility] 09-06-2019 hepatitis A vaccine, adult dosage Devi Aichholz CL[employer]ICAL GENETICS LABORATORY CHIEF Work Phone: [facility] 07-04-2019 zoster vaccine recombinant Devi Aichholz [employer]ICAL GENETICS LABORATORY CHIEF Work Phone: [facility] 04-08-2019 zoster vaccine recombinant Devi Aichholz [employer]ICAL GENET[employer] LABORATORY CHIEF Work Phone: [facility] 02-17-2019 hepatitis A vaccine, adult dosage Devi Aichholz CL[employer]ICAL GENETICS LABORATORY CHIEF Work Phone: [facility] 02-17-2019 tetanus toxoid, redu renan diphtheria toxoid, and acellular pertussis vaccine, adsorbed Devi Aichholz [employer]ICAL GENET[employer] LABORATORY CHIEF Work Phone: [facility] 12-03-2018 Seasonal trivalent influenza vaccine, adjuvanted, preservative free Devi Aichholz [employer]ICAL GENET[employer] LABORAT[employer] CHIEF Work Phone: [facility] 08-14-2016 tetanus toxoid, redu renan diphtheria toxoid, and acellular pertussis vaccine, adsorbed Devi Aichholz [employer]ICAL GENETICS LABORATORY CHIEF Work Phone: [facility] 12-13-2015 pneumococcal polysaccharide vaccine, 23 valent Devi Aichholz CL[employer]ICAL GENET[employer] LABORATORY CHIEF Work Phone: [facility] 12-08-2015 influenza, injectabl e, quadrivalent, preservative free Devi Aichholz CL[employer]ICAL GENET[employer] LABORATORY CHIEF Work Phone: [facility] 12-09-2014 influenza, injectabl e, quadrivalent, preservative free Devi Aichholz CL[employer]ICAL GENET[employer] LABORATORY CHIEF Work Phone: [facility] 10-07-2014 pneumococcal conjuga te vaccine, 13 valent 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 CL[employer]ICAL GENET[employer] LABORATORY CHIEF Work Phone: [facility] 08-11-2014 pneumococcal conjuga te vaccine, 13 valent Devi Susanz CL[employer]ICAL GENETICS LABORATORY CHIEF Work Phone: [facility] Healthcare Payers Date Payer Category Payer Self-pay 2022 Private Health Insurance [id number] 2022 Unknown AARP AARP [id number] 2022-Present [address] [place] [address] [id number] 2018 Managed Care Other (unspecified) [facility] [id number] 2006 Medicare [id number] 1959 Medicare [id number] 1959 Unknown [id number] 1941 Unknown [id number] 2.16.840.1.486677.3.579.2 .593 1941 Unknown [id number] 2.16.840.1.094903.3.579.2 .593 1941 Unknown [id number] 2.16.840.1.937699.3.579.2 .593 1941 Unknown [id number] 2.16.840.1.093583.3.579.2 .593 1941 Unknown [id number] 2.16.840.1.336344.3.579.2 .593 1941 Unknown [id number] 2.16.840.1.158747.3.579.2 .593 1941 Unknown [id number] 2.16.840.1.377224.3.579.2 .593 1941 Unknown [id number] 2.16.840.1.528967.3.579.2 .593 1941 Unknown [id number] 2.16.840.1.231242.3.579.2 .1286 1941 Unknown [id number] 2.16.840.1.347988.3.579.2 .125 1941 Unknown [id number] 2.16.840.1.482274.3.579.2 .1258 1941 Unknown [id number] 2.16.840.1.796119.3.579.2 .125 1941 Unknown [id number] 2.16.840.1.244082.3.579.2 .125 1941 Unknown [id number] 2.16.840.1.971091.3.579.2 .125 1941 Unknown [id number] 2.16.840.1.193469.3.579.2 .125 1941 Unknown [id number] 2.16.840.1.084959.3.579.2 .125 1941 Unknown [id number] 2.16.840.1.342945.3.579.2 .125 1941 Unknown [id number] 2.16.840.1.079113.3.579.2 .1259 1941 Unknown [id number] 2.16.840.1.351579.3.579.2 .1259 1941 Unknown [id number] 2.16.840.1.912936.3.579.2 .9 Unknown [id number] 2.16.840.1.806909.3.579.2 .531 Social History Date Type Detail Facility Start: 09-19-2022 End: 11-08-2023 Tobacco smoking status MOIS Smokes tobacco daily [facility] Start: 02-26-1957 History of tobacco use Cigarette Smo ker [facility] Start: 09-19-2022 End: 12-18-2023 Cigarettes smoked current (pack per day) - Reported 0.5 [facility] Start: 09-19-2022 End: 11-08-2023 Tobacco use and exposure Smokeless tobacco non-user [facility] Start: 03-26-2023 End: 06-19-2024 Alcohol intake Lifetime non-drinker (finding) [facility] Start: 03-26-2023 End: 12-18-2023 Tobacco use panel [facility] Start: 09-19-2022 Tobacco Comment 11-20 cigarettes/day [facility] Start: 09-19-2022 Alcohol Comment Caffeine 3-4 c ups per day [facility] Start: 1940 Sex Assigned At Male [facility] Start: 08-30-2022 Gender identity Identifies as male gender (finding) [facility] National Score (1-10 0), lower number is lower risk 63 [facility] Start: 1940 Sex Assigned At Not on file [facility] Start: 07-12-2023 End: 04-29-2024 Alcohol intake Ex-drinker (finding) [facility] Tobacco smoking stat us MOIS Unknown if ever smoked [facility] Work Phone: Start: 10-01-2014 End: 01-11-2024 Sex Male (finding) [facility] Start: 11-18-2020 End: 05-22-2024 Tobacco smoking status MOIS Occasional tobacco smoker [facility] Start: 11-18-2020 End: 05-22-2024 Tobacco Comment half pack a day [employer] [facility] Medical Equipment Procedure Code Equipment Code Equipment Origin al Text Equipment Identifier Dates Spacer Avs 4d 7m m Spinal Bone Plug - [id number] Start: 08-06-2023 Spacer Avs 4d 7m m Spinal Bone Plug - [id number] Start: 08-06-2023 Plate Aviator Titanium 28x17.4x2.5mm Bone Level 2 Automatic Lock System - [id number] Start: 08-06-2023 Screw Aviator 4m m Titanium 14mm Bone Variable Angle Self Drill Nonsterile - [id number] Start: 08-06-2023 Ptc Photofix 0.8x8cm Rpl [id number] - [id number] Start: 08-23-2020 Comment on above: Description: LEFT CA ROTID ARTERY Functional Status Date Assessment Result Facility 08-08-2023 Are you deaf, or do you have serious difficulty hearing No 08/08/2023 2:11 PM Tahir Harris RN No [facility] 08-08-2023 Are you blind, or do you have serious difficulty seeing, even when wearing glasses No 08/08/2023 2:11 PM Tahir Harris, ARIEL No [facility] 08-08-2023 Do you have serious difficulty walking or climbing stairs No 08/08/2023 2:11 PM Tahir Harris RN No [facility] 08-08-2023 Do you have difficul ty dressing or bathing No 08/08/2023 2:11 PM Tahir Harris RN No [facility] 08-08-2023 Because of a physica l, mental, or emotional condition, do you have difficulty doing errands alone such as visiting a physician's office or shopping No 08/08/2023 2:11 PM Tahir Harris RN No [facility] Mental Status Date Assessment Result Facility 08-08-2023 Because of a physica l, mental, or emotional condition, do you have serious difficulty concentrating, remembering, or making decisions No 08/08/2023 2:11 PM Tahir Harris, RN No [facility] Clinical Notes 05-17-2023 to 06-19-2024 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 NP - 06/19/2024 10:53 AM YAHIR COMER - 06/19/2024 9:40 AM Jose Antonio Monteiro NP - 06/19/2024 9:40 AM Jose Antonio Monteiro NP - 06/19/2024 6:34 AM EDTPatient Instructions Note Date & Type Note Facility 06-19-2024 History of Presen t illness Narrative Associated Problem(s): Upset stomach No fever or urinary c/o No change in bowel habits Check labs Recommend taking the PPI as directed has a fu appt in 3 weeks he will check in with me at that time One of his medications cause upset stomach-unsure what one it is, he takes both at the same time at night. Images from the original note were not included. Sunni Blackburn is a 83 y.o. male presents with chief complaint of Hypertension HPI: COPD: breathing is stable, no wheeze, no blood Hx DONNA, still feeling like not a lot of energy. No blood stools or discoloration Does not feel depressed, just doesn't feel like doing things Reports that one of his medications cause upset stomach-unsure what one it is, he takes both at the same time at night. Just started about 1-2 weeks ago. Does not take his PPI, when asked why he states he does not need it Hypertension This is a chronic problem. The current episode started more than 1 year ago. The problem is unchanged. The problem is controlled. Associated symptoms include peripheral edema. Pertinent negatives include no blurred vision, chest pain or shortness of breath. There are no associated agents to hypertension. Risk factors for coronary artery disease include male gender, obesity and smoking/tobacco exposure. Past treatments include MONIKA inhibitors and calcium channel blockers. The current treatment provides significant improvement. SUBJECTIVE: MEDICATIONS: Current Outpatient Medications Medication Instructions [...] REVIEW OF SYMPTOMS: Review of Systems Constitutional: Positive for fatigue. Negative for activity change, appetite change and unexpected weight change. HENT: Negative for ear pain, nosebleeds, sneezing, trouble swallowing and voice change. Eyes: Negative for blurred vision, pain, discharge and visual disturbance. Respiratory: Negative for apnea, chest tightness, shortness of breath and wheezing. Cardiovascular: Negative for chest pain and leg swelling. Gastrointestinal: Negative for abdominal distention, blood in stool, constipation and diarrhea. Upsets stomach, not pain Genitourinary: Negative for decreased urine volume, difficulty urinating, dysuria and hematuria. Skin: Negative for color change. Neurological: Negative [...] 07/27/2020 Elevated BUN Elevated serum creatinine Emphysema/COPD ([facility]) 10/31/2022 Essential hypertension ([facility]/HCC) 07/27/2020 Hand injury right History of cholesteatoma 05/14/2023 Hx R cholesteatoma Leg cramps Mixed hearing loss 10/31/2022 Peripheral vascular disease ([facility]) 07/27/2020 Sudden left hearing loss 10/31/2022 Thyroid nodule ([facility]) 07/19/20=reviewed findings with pt./benign, follow up 1 [...] in his brother. OBJECTIVE: Visit Vitals BP 138/76 (BP Location: Left arm, Patient Position: Sitting, BP Cuff Size: Adult long) Pulse 74 Temp 98.7 F (Temporal) Resp 20 Wt 183 lb 6.4 oz SpO2 98% BMI 29.38 kg/m Smoking Status Every Day [...] heard. Pulmonary: Effort: Pulmonary effort is normal. Breath sounds: Normal breath sounds. No wheezing or rhonchi. Abdominal: General: Bowel sounds are normal. There is no distension. Palpations: Abdomen is soft. Tenderness: There is no abdominal tenderness. There is no guarding. Musculoskeletal: Cervical back: Neck supple. Right lower leg: Edema present. Left lower leg: Edema present. Skin: General: Skin is warm and dry. Capillary Refill: Capillary refill takes 2 to 3 seconds. Neurological: General: No focal deficit present. Mental Status: He is alert. Psychiatric: Mood and Affect: Mood normal. Behavior: Behavior normal. Thought Content: Thought content normal. Judgment: Judgment normal. ASSESSMENT AND PLAN: Follow up in about 3 months (around 09/18/2024) for Recheck. Problem List Items Addressed This Visit Screening for prostate cancer Relevant Orders PSA RESOLVED: Anemia Relevant Orders CBC and differential Iron + transferrin + TIBC Ferritin Emphysema/COPD (CMS/HCC) - Primary Recommend quitting smoking Current meds: albuterol prn, Breztri Primary hypertension (CMS/HCC) Please check blood pressure daily and record DASH diet Limit caffeine Take medication as directed Contact office if chest pain, pressure, dizziness, shortness of breath, swelling legs Recommend slow position changes Current meds: amlodipine, and lisinopril Relevant Orders Basic metabolic panel Urinalysis with reflex microscopic (clean catch) Microalbumin / creatinine, urine ratio DONNA (iron deficiency anemia) Relevant Orders CBC and differential Iron + transferrin + TIBC Ferritin RESOLVED: Cigarette smoker The patient has been advised of the risks of continued smoking: stroke, CT, all forms of cancer, lung disease, and . Options for quitting smoking include: cold turkey, hypnosis, acupuncture, nicotine replacement meds (gum, lozenges, and patches), Buproprion, and Varenicline. At this time pt is encouraged to evaluate their goals for wanting to quit smoking, and reach out to provider when ready to start this process Cigarette nicotine dependence without complication The patient has been advised of the risks of continued smoking: stroke, CT, all forms of cancer, lung disease, and . Options for quitting smoking include: cold turkey, hypnosis, acupuncture, nicotine replacement meds (gum, lozenges, and patches), Buproprion, and Varenicline. At this time pt is encouraged to evaluate their goals for wanting to quit smoking, and reach out to provider when ready to start this process Upset stomach No fever or urinary c/o No change in bowel habits Check labs Recommend taking the PPI as directed has a fu appt in 3 weeks he will check in with me at that time Associated Problem(s): Cigarette nicotine dependence without complication The patient has been advised of the risks of continued smoking: stroke, CT, all forms of cancer, lung disease, and . Options for quitting smoking include: cold turkey, hypnosis, acupuncture, nicotine replacement meds (gum, lozenges, and patches), Buproprion, and Varenicline. At this time pt is encouraged to evaluate their goals for wanting to quit smoking, and reach out to provider when ready to start this process Associated Problem(s): Cigarette smoker (Resolved 06/19/2024) The patient has been advised of the risks of continued smoking: stroke, CT, all forms of cancer, lung disease, and . Options for quitting smoking include: cold turkey, hypnosis, acupuncture, nicotine replacement meds (gum, lozenges, and patches), Buproprion, and Varenicline. At this time pt is encouraged to evaluate their goals for wanting to quit smoking, and reach out to provider when ready to start this process Associated Problem(s): Primary hypertension (CMS/HCC) Please check blood pressure daily and record DASH diet Limit caffeine Take medication as directed Contact office if chest pain, pressure, dizziness, shortness of breath, swelling legs Recommend slow position changes Current meds: amlodipine, and lisinopril Associated Problem(s): Emphysema/COPD (CMS/HCC) Recommend quitting smoking Current meds: albuterol prn, Breztri documented in this encounter [facility] 06-19-2024 Instructions 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 NP - 06/19/2024 9:40 AM EDT Get labs completed documented in this encounter [facility] 05-23-2024 History of Presen t illness Narrative Subjective Patient ID: Sunni Blackburn is a 83 y.o. male who presents for Mastoid Cleaning HPI This patient presents postop esophagoscopy with dilation. States to be doing well. Review of Systems Patient denies any fever pain. Does believe his swallowing function is improved after dilation. Continues acid reflux precautions and medications. The rest of his review of systems is unchanged. Objective ENT Physical Exam General Examination: General overview: Normal, age-appropriate, no evidence of distress Head: Normocephalic, atraumatic Eyes: Pupils are equally round and reactive to light and accommodation, extraocular muscles are intact Ears: External ear architecture within normal limits, ear canals are patent, tympanic membranes are intact. Mastoid care: Consent: Consent was obtained Procedure: The patient was taken to the procedure room and placed in the exam chair/table. An operating microscope was brought into the field for microdissection. Ear canal and mastoid cavity are thoroughly inspected. Mastoid care was performed. Disposition: This patient tolerated this procedure extremely well. Thoroughly instructed on postprocedure care. Plan for follow-up in the future given. Mild cerumen removed on the left. Nose: External nose unremarkable, nares patent, septum [...] normal affect, no evidence of distress Assessment/Plan We will see this patient back in 6 months for mastoid care. Continue reflux precautions and medications. Encouraged to quit smoking. documented in this encounter [facility] 05-22-2024 Evaluation + Plan note Associated Problem(s): Carotid stenosis Continue aspirin Plavix. Recommended statin but he refused. Surveillance imaging in a year. [facility] 05-22-2024 Evaluation + Plan note Associated Problem(s): Claudication ([facility]) Supervised walking program. He refuses structured supervised walking program but he will walk and use the treadmill at home Continue aspirin and Plavix. I recommended statin but he refused taking statin in spite of long discussion about the potential benefits of statin. Risk factors modification [facility] 05-22-2024 Miscellaneous Notes Associated Problem(s): Carotid stenosis Continue aspirin Plavix. Recommended statin but he refused. Surveillance imaging in a year. Associated Problem(s): Claudication (CMS-HCC) Supervised walking program. He refuses structured supervised walking program but he will walk and use the treadmill at home Continue aspirin and Plavix. I recommended statin but he refused taking statin in spite of long discussion about the potential benefits of statin. Risk factors modification documented in this encounter [facility] 05-22-2024 History of Presen t illness Narrative Images from the original note were not included. To: Nannette Long, WO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-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 HPI: Sunni Blackburn is a 83 y.o. male with Mild ICA stenosis bilaterally. Surveillance imaging shows continued to be mild stenosis. No stroke or mini stroke. He has claudication. PVR shows mild occlusive disease with 0.7 NASIR bilaterally. No tissue loss no rest pain.. Review of Systems: Review of Systems Constitutional: [...] the morning. (Patient not taking: Reported on 05/22/2024) hydroCHLOROthiazide (MICROZIDE) 12.5 mg capsule Take 1 capsule (12.5 mg total) by mouth daily. (Patient not taking: Reported on 05/22/2024) 0 No current facility-administered medications on file prior to visit. Past Medical History: Past Medical History: Diagnosis Date Cataracts, bilateral Hearing loss Hyperlipidemia Hypertension Past Surgical History: Past Surgical History: Procedure Laterality Date COLONOSCOPY ENDARTERECTOMY CAROTID Left 08/23/2020 Performed by Jamie Newton MD at [facility] EXTERNAL EAR SURGERY 2 EYE SURGERY PATCH ANGIOPLASTY CAROTID Left 08/23/2020 Performed by Jamie Newton MD at [facility] TONSILLECTOMY VASECTOMY Social and Family History: Social [...] Resource Strain: Not on file Food Insecurity: No Food Insecurity (05/22/2024) Hunger Screening Food Insecurity - Worry: Never True Food Insecurity - Inability: Never True Transportation Needs: Not on file Physical Activity: [...] the assessment and plan below. Vitals: BP 164/70 (BP Site: Right Arm, BP Postition: Sitting, BP CUFF SIZE: M (9-13 inches)) Pulse 84 Temp 36.4 C (97.5 F) (Temporal) Ht 167.6 cm (5' 6 ) Wt 81.6 kg (180 lb) SpO2 98% BMI 29.05 kg/m Body mass index is 29.05 kg/m . Physical Exam: Physical Exam Constitutional: [...] content normal. Judgment: Judgment normal. Recent testing: Carotid ultrasound PVR Assessment and Plan: Problem List Carotid stenosis - Primary Current Assessment & Plan Continue aspirin Plavix. Recommended statin but he refused. Surveillance imaging in a year. Claudication ([facility]) Current Assessment & Plan Supervised walking program. He refuses structured supervised walking program but he will walk and use the treadmill at home Continue aspirin and Plavix. I recommended statin but he refused taking statin in spite of long discussion about the potential benefits of statin. Risk factors modification Sunni was seen today for follow up to go over testing to be completed at [facility] . Diagnoses and all orders for this visit: Bilateral carotid artery stenosis Claudication ([facility]) Erlinda Chopra MD, FLY, RPVI, FSVS, FACS [facility] [employer] This note was created with the assistance of a speech recognition program. While intending to generate a timely document that accurately reflects the content of the visit, no guarantee can be provided that every grammatical or spelling mistake has been or will be identified or corrected. Thank you for your understanding. documented in this encounter [facility] 04-29-2024 History of Presen t illness Narrative Radiology Service Progress Note PATIENT NAME: Sunni Blackburn DATE OF SERVICE: April 29, 2024 TIME: 10:01 AM PATIENT IDENTITY VERIFICATION COMPLETED USING TWO (2) IDENTIFIERS: Name and Date of confirmed by patient verbally. FALL SCREENING: Has the patient had 2 falls in the last year or 1 fall with injury or currently using an Ambulatory Assistive Device (Walker, Cane, Wheelchair, Crutches, etc.)? No PATIENT GENDER DATA: Assigned male at PATIENT RELEVANT IMPLANT DATA REVIEWED: Not Applicable PATIENT PRESENTS WITH AN IMPLANTABLE OR ATTACHED HAZMAT TECHNICIAN: No RADIOLOGY DEPARTMENT: General X-ray: Exam(s) Completed: Spine X-Ray(s): Cervical AP / LAT PERIPHERAL IV DATA: Not applicable SIGNED BY: RT Jane(R) April 29, 2024 10:01 AM documented in this encounter [facility] 04-29-2024 Note HNO ID: [id number] Author: WESLEY GALVIN RT(R) Service: Radiology Author Type: Technologist Type: Progress Notes Filed: 04/29/2024 10:01 Note Text: Radiology Service Progress Note PATIENT NAME: Sunni Blackburn DATE OF SERVICE: April 29, 2024 TIME: 10:01 AM PATIENT IDENTITY VERIFICATION COMPLETED USING TWO (2) IDENTIFIERS: Name and Date of confirmed by patient verbally. FALL SCREENING: Has the patient had 2 falls in the last year or 1 fall with injury or currently using an Ambulatory Assistive Device (Walker, Cane, Wheelchair, Crutches, etc.)? No PATIENT GENDER DATA: Assigned male at PATIENT RELEVANT IMPLANT DATA REVIEWED: Not Applicable PATIENT PRESENTS WITH AN IMPLANTABLE OR ATTACHED HAZMAT TECHNICIAN: No RADIOLOGY DEPARTMENT: General X-ray: Exam(s) Completed: Spine X-Ray(s): Cervical AP / LAT PERIPHERAL IV DATA: Not applicable SIGNED BY: RT Jane(R) April 29, 2024 10:01 AM [facility] 04-29-2024 History of Presen t illness Narrative SPINE SURGERY FOLLOW UP This is an in-person visit. SERVICE DATE: 04/29/2024 SURGERY DATE: 08/06/2023 Sunni Blackburn is a pleasant 83-year-old gentleman is here in spine surgery clinic for 7 month postoperative follow-up visit. He underwent a C4-5, C5-6 anterior cervical discectomy, allograft and instrumented fusion on 08/06/2023. Prior to surgery he was complaining of shocklike sensation in bilateral upper extremity for a year. He also noticed diffuse sensory disturbance up to fingers. He also had right hand surgical manager weakness and imbalance while walking. During last clinic visit on 08/23/2023, he had reported that since surgery his shocklike sensation is significantly improved. Numbness is improving. Imbalance is improving. He notices swallowing difficulty after surgery which is significantly improved with the steroid. He was also evaluated with a barium swallow during postoperative time. Still had minimal swallowing problem for big pills. Today, he says his left hand has started becoming more numb over the past couple months. This is progressed since last clinic visit. Denies left hand pain or difficulty gripping objects. He reports that his shocklike sensations have completely resolved. Currently smoking ANTIPLATELET OR ANTICOAGULATION STATUS: No Patient Entered [...] severe depression 20-27 Severe depression PHYSICAL EXAM: BP 156/70 Pulse 84 Ht 167.6 cm (5' 6 ) Wt 81.2 kg (179 lb 0.2 oz) SpO2 98% BMI 28.89 kg/m GENERAL APPEARANCE: Well nourished, well developed, and no apparent distress. NEURO PSYCH: Patient oriented to person, place, and time. Mood pleasant. Benign affect. CARDIOVASCULAR: Palpable pulses. No edema noted. No varicosities. SKIN: Head, neck, trunk, and extremities dry, intact and without lesions. LYMPHATICS: No palpable nodes in cervical or axillae areas. Groin exam deferred. MUSCULOSKELETAL VISUAL INSPECTION CERVICAL: Anterior cervical scar is healthy THORACIC: WNL LUMBAR: WNL PALPATION: SPINOUS PROCESS: No pain. PARASPINALS: No pain. MOTOR: 5/5 in all muscle groups. SENSORY: Normal sensory exam GAIT: Stable gait. REFLEXES: +2 to bilateral U/L extremities. PROPRIOCEPTION: Normal. LONG TRACT SIGNS: No clonus. No Hoffmans. STRAIGHT LEG TEST: Ipsilateral: Negative. Contralateral: Negative. L'HERMITTES SIGN: Negative. SPURLING'S TEST: Not tested. DATA REVIEW [facility] records independently reviewed Images independently reviewed with the patient ASSESSMENT/PLAN Sunni Blackburn is a pleasant 83-year-old gentleman is here in spine surgery clinic for 7 month postoperative follow-up visit. He underwent a C4-5, C5-6 anterior cervical discectomy, allograft and instrumented fusion on 08/06/2023. Prior to surgery he was complaining of shocklike sensation in bilateral upper extremity for a year. He also noticed diffuse sensory disturbance up to fingers. He also had right hand surgical manager weakness and imbalance while walking. During last clinic visit on 08/23/2023, he had reported that since surgery his shocklike sensation is significantly improved. Numbness is improving. Imbalance is improving. He notices swallowing difficulty after surgery which is significantly improved with the steroid. He was also evaluated with a barium swallow during postoperative time. Still had minimal swallowing problem for big pills. Today, he says his left hand has started becoming more numb over the past couple months. This is progressed since last clinic visit. Denies left hand pain or difficulty gripping objects. He reports that his shocklike sensations have completely resolved. Currently smoking Examination showed well-healing anterior cervical incision, no signs of infection. No motor weakness. Stable gait. X-ray cervical spine done on 04/29/2024 showed stable C4-6 instrumented fusion. No obvious instrument failure. Severe spondylosis at C6-7 level. Discussed clinical, imaging finding. Showed images and explained detail. Discussed treatment option for left hand numbness which includes continuing exercises, membrane stabilizers. Also discussed about MRI cervical spine without contrast to rule out adjacent segment disc disease. Also discussed in detail about nicotine and pseudoarthrosis. Strongly recommended to stop smoking. Mr. Blackburn wants to continue conservative treatment. He want to hold off MRI cervical spine at this time. If his numbness progresses, we will order MRI cervical spine without contrast. Recommended to continue hand exercises. Follow-up in spine surgery clinic at 4 months with x-ray cervical spine. The majority of the visit was spent counseling and/or coordinating care for the patient. The patient was counseled regarding left hand numbness, cervical spondylosis, cervical myelopathy, cervical discectomy and fusion, neck exercises, hand exercise, nicotine and pseudoarthrosis, smoking cessation, adjacent segment disc disease, MRI cervical spine. Total face to face time was 20 minutes. By signing my name below, Eric Martin, attest that this documentation has been prepared under the direction and in the presence of Dr. Martinez Electronically signed, Johana Antoine April 29, 2024 8:53 AM Provider Attestation: Rebeca Martin MD personally performed the services described in this documentation. All medical record entries made by the scribe were at my direction and in my presence. I have reviewed the chart and discharge instructions (if applicable) and agree that the record reflects my personal performance and is accurate and complete. Electronically Signed: Rebeca Martinez MD, April 29, 2024 SIGNATURE: Rebeca Martinez MD PATIENT NAME: Sunni Blackburn DATE: April 29, 2024 TIME: 8:53 AM PAGER: documented in this encounter [facility] 04-29-2024 Note HNO ID: [id number] Author: REBECA MARTINEZ MD Service: ? Author Type: Physician Type: Progress Notes Filed: 04/29/2024 11:08 Note Text: SPINE SURGERY FOLLOW UP This is an in-person visit. SERVICE DATE: 04/29/2024 SURGERY DATE: 08/06/2023 Sunni Blackburn is a pleasant 83-year-old gentleman is here in spine surgery clinic for 7 month postoperative follow-up visit. He underwent a C4-5, C5-6 anterior cervical discectomy, allograft and instrumented fusion on 08/06/2023. Prior to surgery he was complaining of shocklike sensation in bilateral upper extremity for a year. He also noticed diffuse sensory disturbance up to fingers. He also had right hand surgical manager weakness and imbalance while walking. During last clinic visit on 08/23/2023, he had reported that since surgery his shocklike sensation is significantly improved. Numbness is improving. Imbalance is improving. He notices swallowing difficulty after surgery which is significantly improved with the steroid. He was also evaluated with a barium swallow during postoperative time. Still had minimal swallowing problem for big pills. Today, he says his left hand has started becoming more numb over the past couple months. This is progressed since last clinic visit. Denies left hand pain or difficulty gripping objects. He reports that his shocklike sensations have completely resolved. Currently smoking ANTIPLATELET OR ANTICOAGULATION STATUS: No Patient Entered [...] severe depression 20-27 Severe depression PHYSICAL EXAM: BP 156/70 Pulse 84 Ht 167.6 cm (5' 6 ) Wt 81.2 kg (179 lb 0.2 oz) SpO2 98% BMI 28.89 kg/m? GENERAL APPEARANCE: Well nourished, well developed, and no apparent distress. NEURO PSYCH: Patient oriented to person, place, and time. Mood pleasant. Benign affect. CARDIOVASCULAR: Palpable pulses. No edema noted. No varicosities. SKIN: Head, neck, trunk, and extremities dry, intact and without lesions. LYMPHATICS: No palpable nodes in cervical or axillae areas. Groin exam deferred. MUSCULOSKELETAL VISUAL INSPECTION CERVICAL: Anterior cervical scar is healthy THORACIC: WNL LUMBAR: WNL PALPATION: SPINOUS PROCESS: No pain. PARASPINALS: No pain. MOTOR: 5/5 in all muscle groups. SENSORY: Normal sensory exam GAIT: Stable gait. REFLEXES: +2 to bilateral U/L extremities. PROPRIOCEPTION: Normal. LONG TRACT SIGNS: No clonus. No Hoffmans. STRAIGHT LEG TEST: Ipsilateral: Negative. Contralateral: Negative. L'HERMITTES SIGN: Negative. SPURLING'S TEST: Not tested. DATA REVIEW [facility] records independently reviewed Images independently reviewed with the patient ASSESSMENT/PLAN Sunni Blackburn is a pleasant 83-year-old gentleman is here in spine surgery clinic for 7 month postoperative follow-up visit. He underwent a C4-5, C5-6 anterior cervical discectomy, allograft and instrumented fusion on 08/06/2023. Prior to surgery he was complaining of shocklike sensation in bilateral upper extremity for a year. He also noticed diffuse sensory disturbance up to fingers. He also had right hand surgical manager weakness and imbalance while walking. During last clinic visit on 08/23/2023, he had reported that since surgery his shocklike sensation is significantly improved. Numbness is improving. Imbalance is improving. He notices swallowing difficulty after surgery which is significantly improved with the steroid. He was also evaluated with a barium swallow during postoperative time. Still had minimal swallowing problem for big pills. Today, he says his left hand has started becoming more numb over the past couple months. This is progressed since last clinic visit. Denies left hand pain or difficulty gripping objects. He reports that his shocklike sensations have completely resolved. Currently smoking Examination showed well-healing anterior cervical incision, no signs of infection. No motor weakness. Stable gait. X-ray cervical spine done on 04/29/2024 showed stable C4-6 instrumented fusion. No obvious instrument failure. Severe spondylosis at C6-7 level. Discussed clinical, imaging finding. Showed images and explained detail. Discussed treatment option for left hand numbness which includes continuing exercises, membrane stabilizers. Also discussed about MRI cervical spine without contrast to rule out adjacent segment disc disease. Also dis (more content not included)... [facility] 03-19-2024 History of Presen t illness Narrative [...] PRN amLODIPine (NORVASC) 10 mg, Oral, Daily Wqmgnio-Elikxrvbayn-Galumhkssa (Breztri Aerosphere) 160-9-4.8 MCG/ACT aerosol 2 puffs, [...] of left ear 10/31/2022 Dermatitis 01/18/2024 Dyslipidemia ([facility]) 07/27/2020 Elevated BUN Elevated serum creatinine Emphysema/COPD ([facility]) 05/14/2023 Essential hypertension ([facility]) 07/27/2020 Hand injury right History of cholesteatoma 05/14/2023 Hx R cholesteatoma Leg cramps Mixed hearing loss 10/31/2022 Peripheral vascular disease ([facility]) 07/27/2020 Sudden left hearing loss 10/31/2022 Thyroid nodule ([facility]) 07/19/20=reviewed findings with pt./benign, follow up 1 [...] List Items Addressed This Visit Thyroid nodule ([facility]) Will check labs Relevant Orders TSH T4, free BMI 29.0-29.9,adult Asymptomatic bilateral carotid artery stenosis - Primary Current meds: none Follows with Dr Barclay, carotids done in 02/18. Right external 57%, internals <50% Relevant Orders Lipid panel Emphysema/COPD ([facility]) Current meds: breztri, albuterol Primary hypertension ([facility]) Please check blood pressure daily and record [...] of the risks of continued smoking: stroke, CT, all forms of cancer, lung disease, and [...] of the risks of continued smoking: stroke, CT, all forms of cancer, lung disease, and [...] external 57%, internals <50% Associated Problem(s): Emphysema/COPD ([facility]/HCC) Current meds: breztri, albuterol documented in this encounter [facility] 03-19-2024 Instructions 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 NP - 03/19/2024 10:30 AM EST Check labs, order given Fu in 3 months documented in this encounter [facility] 02-25-2024 History of Presen t illness Narrative [...] of the risks of continued smoking: stroke, CT, all forms of cancer, lung disease, and [...] if not better Associated Problem(s): COPD exacerbation (CMS/HCC) Concern w recent URI/sinus starting with early exacerbation Add steroids and atb Fu if not better Associated Problem(s): Emphysema/COPD (CMS/HCC) Requested refill of breztri Pt started having [...] 07/27/2020 Elevated BUN Elevated serum creatinine Emphysema/COPD ([facility]) 05/14/2023 Essential hypertension ([facility]) 07/27/2020 Hand injury right History of cholesteatoma 05/14/2023 Hx R cholesteatoma Leg cramps Mixed hearing loss 10/31/2022 Peripheral vascular disease ([facility]) 07/27/2020 Sudden left hearing loss 10/31/2022 Thyroid nodule ([facility]) 07/19/20=reviewed findings with pt./benign, follow up 1 [...] List Items Addressed This Visit COPD exacerbation ([facility]) Concern w recent URI/sinus starting with early exacerbation Add steroids and atb Fu if not better Relevant Medications predniSONE (Deltasone) 20 MG tablet doxycycline (Vibra-Tabs) 100 MG tablet benzonatate (Tessalon) 200 MG capsule Tobacco user The patient has been advised of the risks of continued smoking: stroke, CT, all forms of cancer, lung disease, and . Options for quitting smoking include: cold turkey, hypnosis, acupuncture, nicotine replacement meds (gum, lozenges, and patches), Buproprion, and Varenicline. At this time pt is encouraged to evaluate their goals for wanting to quit smoking, and reach out to provider when ready to start this process Emphysema/COPD ([facility]) Requested refill of breztri Relevant Medications Cdrlbqr-Kfzefvxnyjn-Jljwxwojbc (Breztri Aerosphere) 160-9-4.8 MCG/ACT aerosol Acute non-recurrent [...] better contact office documented in this encounter [facility] 02-25-2024 Instructions 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 NP - 02/25/2024 11:45 AM EST Steroids for lung inflammation, atb for sinus infection, tessalon pearls for cough If worsening in symptoms go to the ER documented in this encounter [facility] 01-31-2024 Evaluation + Plan note Associated Problem(s): Cigarette smoker Counseled him smoking cessation for 3 minutes. [facility] 01-31-2024 Miscellaneous Notes Associated Problem(s): Cigarette smoker Counseled him smoking cessation for 3 minutes. Associated Problem(s): Peripheral vascular disease (CMS-HCC) We will get PVR. Aspirin and Plavix. Counseled him on smoking cessation as well. Associated Problem(s): Carotid stenosis Carotid duplex ultrasound. Continue aspirin Plavix and statin. documented in this encounter [facility] 01-31-2024 Evaluation + Plan note Associated Problem(s): Peripheral vascular disease (CMS-HCC) We will get PVR. Aspirin and Plavix. Counseled him on smoking cessation as well. [facility] 01-31-2024 Evaluation + Plan note Associated Problem(s): Carotid stenosis Carotid duplex ultrasound. Continue aspirin Plavix and statin. [facility] 01-31-2024 History of Presen t illness Narrative Images from the original note were not included. To: Nannette Long, WO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-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 HPI: Sunni Blackburn is a 83 y.o. [...] 08/23/2020 Performed by Jamie Newton MD at [facility] EXTERNAL EAR SURGERY 2 EYE SURGERY PATCH ANGIOPLASTY CAROTID Left 08/23/2020 Performed by Jamie Newton MD at [facility] TONSILLECTOMY VASECTOMY Social and Family History: Social [...] orders for this visit: Peripheral vascular disease ([facility]-H[facility]) Bilateral carotid artery stenosis Cigarette smoker Erlinda Chopra MD, FLY, RPVI, FSVS, FACS [facility] This note was created with the assistance of a speech recognition program. While intending to generate a timely document that accurately reflects the content of the visit, no guarantee can be provided that every grammatical or spelling mistake has been or will be identified or corrected. Thank you for your understanding. documented in this encounter [facility] 01-31-2024 Instructions Erlinda Chopra MD - 01/31/2024 11:30 AM EST Are You Ready To Kick The Habit? Free Tobacco Cessation Resources [facility] Services [facility] provide all employees with free tobacco cessation services that include: Counseling to understand nicotine addiction Education about medications that can help you successfully quit Assistance with developing a plan to quit Call to set up an individual appointment or find out when group classes will be held: [facility]: [phone] [facility]: [phone] [facility]: [phone] [facility]: [phone] Quit Smoking Action Plan and Resources [facility] offers an eight-week, online smoking cessation plan to all [facility] employees, regardless of whether [place] is your medical insurance provider. Go to [email or web address] ness and click the Health Risk Assessment and Resources link to get started. In the [employer] menu, click Action Plans instead of Health Risk Assessment to access the Quit Smoking Action Plan. Additional smoking cessation resources are also available to all [facility] employees on the [employer] web page at www.[employer]/quit smoking. [place] Tobacco Cessation Program If [place] is your medical insurance provider, there are more free resources available to you, including: No copays or deductibles on local tobacco cessation counseling services to help you quit Prescription assistance for tobacco cessation medications to help you quit For details about the tobacco cessation program available to [place] members, go to www.[employer] (Search: Tobacco Cessation Program). [place] Tobacco Quit Line 2-966-SJYP-NOW ( ) is a toll-free, telephonic service that helps [place] residents quit smoking and using tobacco. It is staffed by experts who tailor a quit plan for you and provide you with advice. [place] Tobacco Quit Line 5-850-TLZO-NOW ( ) is a toll-free, telephonic service that helps [place] residents quit smoking and using tobacco. It is staffed by experts who tailor a quit plan for you and provide you with advice. Two weeks of nicotine replacement therapy may be provided at no charge, if needed. Additional Resources These national organizations also offer free information and resources to help you quit tobacco: [place] [employer]--www.cancer.org/healthy/ stayawayfromtobacco [place] [employer]--www.heart.org (Search: Quit Smoking) Centers for Disease Control and Prevention--www.cdc.gov/tobacco [place] [employer]--www.lungusa.org documented in this encounter [facility] 01-18-2024 History of Presen t illness Narrative [...] of left ear 10/31/2022 Dermatitis 01/18/2024 Dyslipidemia ([facility]/HCC) 07/27/2020 Elevated BUN Elevated serum creatinine Emphysema/COPD ([facility]) 05/14/2023 Essential hypertension ([facility]) 07/27/2020 Hand injury right History of cholesteatoma 05/14/2023 Hx R cholesteatoma Leg cramps Mixed hearing loss 10/31/2022 Peripheral vascular disease ([facility]/HCC) 07/27/2020 Sudden left hearing loss 10/31/2022 Thyroid nodule ([facility]) 07/19/20=reviewed findings with pt./benign, follow up 1 [...] disability and . documented in this encounter [facility] 01-04-2024 History of Presen t illness Narrative [...] Chronic myringitis of left ear 10/31/2022 Dyslipidemia ([facility]) 07/27/2020 Elevated BUN Elevated serum creatinine Emphysema/COPD ([facility]) 05/14/2023 Essential hypertension ([facility]) 07/27/2020 Hand injury right History of cholesteatoma 05/14/2023 Hx R cholesteatoma Leg cramps Mixed hearing loss 10/31/2022 Peripheral vascular disease ([facility]/HCC) 07/27/2020 Sudden left hearing loss 10/31/2022 Thyroid nodule ([facility]) 07/19/20=reviewed findings with pt./benign, follow up 1 [...] a regular basis documented in this encounter [facility] 12-18-2023 History of Presen t illness Narrative [...] the last year: no 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: 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 doctor (nathanael), no dentist (dentures), ear [...] Chronic myringitis of left ear 10/31/2022 Dyslipidemia ([facility]) 07/27/2020 Elevated BUN Elevated serum creatinine Emphysema/COPD ([facility]) 05/14/2023 Essential hypertension ([facility]) 07/27/2020 Hand injury right History of cholesteatoma 05/14/2023 Hx R cholesteatoma Leg cramps Mixed hearing loss 10/31/2022 Peripheral vascular disease ([facility]) 07/27/2020 Sudden left hearing loss 10/31/2022 Thyroid nodule ([facility]) 07/19/20=reviewed findings with pt./benign, follow up 1 [...] of the risks of continued smoking: stroke, CT, all forms of cancer, lung disease, and . Options for quitting smoking include: cold turkey, hypnosis, acupuncture, nicotine replacement meds (gum, lozenges, and patches), Buproprion, and Varenicline. At this time pt is encouraged to evaluate their goals for wanting to quit smoking, and reach out to provider when ready to start this process Asymptomatic bilateral carotid artery stenosis Cont with vascular Emphysema/COPD ([facility]/HCC) Stable Primary hypertension ([facility]) Stable no dose changes Relevant Medications amLODIPine [...] of the risks of continued smoking: stroke, CT, all forms of cancer, lung disease, and . Options for quitting smoking include: cold turkey, hypnosis, acupuncture, nicotine replacement meds (gum, lozenges, and patches), Buproprion, and Varenicline. At this time pt is encouraged to evaluate their goals for wanting to quit smoking, and reach out to provider when ready to start this process documented in this encounter [facility] 11-08-2023 History of Presen t illness Narrative [...] to quit smoking. documented in this encounter [facility] 10-19-2023 Evaluation note Diagnosis Onset Date Resolution Dermatitis acute October 18, 2 024 11:00am [facility] Work Phone: 1(945) 112-171108-22-2024 Telephone encounter Note* Telephone Encounter - Jerry Delvalle RN - 10/18/2023 11:41 AM EDT noted [facility]08-22-2024 Miscellaneous Notes* Telephone Encounter - Jerry Delvalle RN - 10/18/2023 11:41 AM EDT noted * Telephone Encounter - Isaías Bonilla - 10/18/2023 11:20 AM EDT Received outside medical records from [facility], discharge notes, in chart for review. [facility] encounter Note * Telephone Encounter - Isaías Bonilla - 10/18/2023 11:20 AM EDT Received outside medical records from [facility], discharge notes, in chart for review. [facility]2024 Telephone encounter Note* Telephone Encounter - Jerry Delvalle RN - 09/03/2023 2:49 PM EDT Printed for review & signature [facility]2024 Miscellaneous Notes* Telephone Encounter - Jerry Delvalle RN - 09/03/2023 2:49 PM EDT Printed for review & signature * Telephone Encounter - Danay Rayo - 09/03/2023 2:42 PM EDT [facility] PT Initial Exam report scanned to [facility] for review and completion [facility] * Telephone Encounter - Danay Rayo - 09/03/2023 2:42 PM EDT [facility] PT Initial Exam report scanned to [facility] for review and completion [facility]07-01-2024 Miscellaneous Notes* Telephone Encounter - Jermaine Granado RN - 08/27/2023 9:45 AM EDT Called and spoke with patient. Answered all questions. Patient stated he was unaware that PT was ordered for him. Wants to complete PT at [facility]. PT fax number [phone]. Faxed to number with confirmation fax. * Telephone Encounter - Danay Rayo - 08/27/2023 8:36 AM EDT Pt phoned asking if there were any restrictions he should follow. Please call and advise Pt phone [phone] documented in [facility]Paul[facility] Telephone encounter Note * Telephone Encounter - Jermaine Granado RN - 08/27/2023 9:45 AM EDT Called and spoke with patient. Answered all questions. Patient stated he was unaware that PT was ordered for him. Wants to complete PT at [facility]. PT fax number [phone]. Faxed to number with confirmation fax. [facility]07-01-2024 Telephone encounter Note* Telephone Encounter - Pau Danay - 08/27/2023 8:36 AM EDT Pt phoned asking if there were any restrictions he should follow. Please call and advise Pt phone [phone] [facility]06-27-2024 NoteHNO ID: [id number] Author: REBECA MARTINEZ MD Service: ? Author [...] to fingers. He also had right hand surgical manager weakness and imbalance while walking. Since surgery [...] to fingers. He also had right hand surgical manager weakness and imbalance while walking. Since surgery [...] DATE: August 23, 2023 TIME: 11:32 AM PAGER:[facility]06-27-2024 History of Present illness Narrative* Rebeca Martinez [...] to fingers. He also had right hand surgical manager weakness and imbalance while walking. Since surgery [...] to fingers. He also had right hand surgical manager weakness and imbalance while walking. Since surgery [...] TIME: 11:32 AM PAGER: [facility] in [facility]Paul[facility] Telephone encounter Note * Telephone Encounter [...] mg for surgery. Thank you Clovis VELASCO [facility]05-17-2024 Miscellaneous Notes* Telephone Encounter - Clovis [...] mg for surgery. Thank you Clovis VELASCO documented in this encounterPaulding [facility]05-16-[facility]24 History and physical note * Clovis [...] have a large neck STOP-Bang Score: 3 [id number] Score: Age: >=75 Sex: male CHF history: No Hypertension history: Yes Stroke/TIA/thromboembolism history: No Vascular disease history: Yes Diabetes history: No [id number] Score: 4 ARISCAT Score: Age: >80 Preoperative [...] Status: Future Standing Expiration Date: 10/11/2023 vit A,C,E-Yywm-Qxrxuf (PRESERVISION AREDS) 2,148 mcg-113 mg-45 mg-17.4mg tab [...] over bilateral hand. Noticed minimal right hand surgical manager weakness and dropping things. Noticed minimal imbalance [...] 1024 Medication Sig Last Dose Taking vit A,C,N-Fxbv-Agsrdn (PRESERVISION AREDS) 2,148 mcg-113 mg-45 mg-17.4mg tab [...] tablet Take 81 mg by mouth. Yes qpfswhkoml-uuqqiasv-gewylnlpsk (BREZTRI AEROSPHERE) 160-9-4.8 mcg/actuation HFA aerosol inhaler [...] Admin: COVID-19 vaccine, age 12+ yr, season (PFIZER-BIONTRepRegen) 12/30/2021 Imm Admin: COVID-19 vaccine, age 12+ [...] fevers. Neuro: No history of TIA's, stroke, TETRYL SCREEN OPERATOR tumor, impaired sensorium, hemiplegia, paraplegia or quadraplegia. [...] LeftCarotid Enterectomy no history of angina, CHF, CT, cardiac surgery or stents. Denies rest pain, [...] Last Resulted: 08/05/20 1:51 PM Received From: SlideBatch Result Received: 05/17/23 9:43 AM Most recent labs All in [facility] Instructions Given to Patient: Instructions located in the after visit summary. Patient given verbal and written preop instructions and voices comprehension and compliance. SIGNATURE: Clovis Gunderson APRN.CNP PATIENT NAME: Sunni Blackburn DATE: 07/12/2023 TIME: 11:06 AM [facility]05-16-2024 History and physical note* Clovis Gunderson [...] have a large neck STOP-Bang Score: 3 [id number] Score: Age: >=75 Sex: male CHF history: No Hypertension history: Yes Stroke/TIA/thromboembolism history: No Vascular disease history: Yes Diabetes history: No [id number] Score: 4 ARISCAT Score: Age: >80 Preoperative [...] Status: Future Standing Expiration Date: 10/11/2023 vit A,C,K-Fqcr-Gvrpeq (PRESERVISION AREDS) 2,148 mcg-113 mg-45 mg-17.4mg tab [...] over bilateral hand. Noticed minimal right hand surgical manager weakness and dropping things. Noticed minimal imbalance [...] 1024 Medication Sig Last Dose Taking vit A,C,X-Sijr-Drvvlp (PRESERVISION AREDS) 2,148 mcg-113 mg-45 mg-17.4mg tab [...] tablet Take 81 mg by mouth. Yes xdgqiwqyqw-odtgzaha-kokijtjheo (BREZTRI AEROSPHERE) 160-9-4.8 mcg/actuation HFA aerosol inhaler [...] fevers. Neuro: No history of TIA's, stroke, TETRYL SCREEN OPERATOR tumor, impaired sensorium, hemiplegia, paraplegia or quadraplegia. [...] LeftCarotid Enterectomy no history of angina, CHF, CT, cardiac surgery or stents. Denies rest pain, [...] Last Resulted: 08/05/20 1:51 PM Received From: [facility]ideBatch Result Received: 05/17/23 9:43 AM Most recent labs All in Epic Instructions Given to Patient: Instructions located in the after visit summary. Patient given verbal and written preop instructions and voices comprehension and compliance. SIGNATURE: Clovis Gunderson APRN.CNP PATIENT NAME: Sunni Blackburn DATE: 07/12/2023 TIME: 11:06 AM documented in this encounterPaulding [facility] Hospital05-08-2024 Instructions* Patient Instructions* Clovis Gunderson APRN.CNP - 07/04/2023 12:47 PM EDT PATIENT PREOPERATIVE INSTRUCTIONS Berny Martinez* has scheduled you for your procedure at this surgery center: [facility]: [phone] [address] [place] [address]. On your scheduled day of surgery, please [...] Procedures: - YOU MUST HAVE A RESPONSIBLE TOOL CHECKER TAKE YOU HOME. A HOURLY ASSOCIATE OR ORDER ENTRY REPRESENTATIVE CANNOT BE MADE A RESPONSIBLE TOOL CHECKER. - We recommend that a responsible person stays with you overnight to take care of you. - You cannot stay in a hotel alone after outpatient surgery. You will not be permitted to have yoursurgery, if you do not have someone to take care of you. If you already have an Advance Directive, please fax a copy to [phone] or email to for it to be [...] that day. Clovis VELASCO documented in this encounterPaulding [facility] Hospital04-24-2024 Telephone encounter Note * Telephone Encounter - Liliam Clayton - 06/20/2023 9:49 AM EDT Received Ultrasound of the Carotid report by fax from [facility]. Scanned fax to chart for review. [facility]04-24-2024 Miscellaneous Notes* Telephone Encounter - Liliam Clayton - 06/20/2023 9:49 AM EDT Received Ultrasound of the Carotid report by fax from [facility]. Scanned fax to chart for review. documented in this encounterPaulding County Hospital04-23-2024 History of Present illness Narrative* Mitra [...] PATIENT PRESENTS WITH AN IMPLANTABLE OR ATTACHED HAZMAT TECHNICIAN: No RADIOLOGY DEPARTMENT: General X-ray: Exam(s) Completed: Spine X-Ray(s): Cervical AP / LAT / FLEX-EXT PERIPHERAL IV DATA: Not applicable SIGNED BY: RT Jacob(Allison) June 19, 2023 10:16 AM documented in this encounterPaulding County Hospital04-23-2024 NoteHNO ID: [id number] Author: MITRA PAL RT(Allison) Service: ? Author Type: Technologist Type: Progress [...] PATIENT PRESENTS WITH AN IMPLANTABLE OR ATTACHED HAZMAT TECHNICIAN: No RADIOLOGY DEPARTMENT: General X-ray: Exam(s) Completed: Spine X-Ray(s): Cervical AP / LAT / FLEX-EXT PERIPHERAL IV DATA: Not applicable SIGNED BY: RT Jacob(R) June 19, 2023 10:16 [facility]04-23-2024 NoteHNO ID: [id number] Author: JERRY DELVALLE RN Service: ? Author Type: Registered Nurse Type: Progress Notes Filed: 06/19/2023 10:26 Note Text: Neuro SPINE CARE COORDINATION PRE-OP VISIT Met with patient in office for pre op education. Given both written and verbal instructions re : Skin prep, wound care, pain management and post op restrictions. Provided to patient: [facility] Surgery Guide, skin prep supplies, Spine Surgery Pre/post op education packet. Yes Reviewed with patient to report to desk for surgery ? Yes. Reviewed with the patient to call [phone] the day before to get surgery report [...] carotid ultrasound. Copy to onbase. Jerry Delvalle, [facility]04-23-2024 History of Present illness Narrative* Jerry Delvalle, RN - 06/19/2023 9:49 AM EDT Neuro SPINE CARE COORDINATION PRE-OP VISIT Met with patient in office for pre op education. Given both written and verbal instructions re : Skin prep, wound care, pain management and post op restrictions. Provided to patient: [facility] Surgery Guide, skin prep supplies, Spine Surgery Pre/post op education packet. Yes Reviewed with patient to report to desk for surgery ? Yes. Reviewed with the patient to call [phone] the day before to get surgery report [...] in bilateral upper extremity Walking difficulty Hand surgical manager weakness HISTORY OF PRESENT ILLNESS: Sunni Blackburn [...] over bilateral hand. Noticed minimal right hand surgical manager weakness and dropping things. Noticed minimal imbalance [...] DERMATOMAL DISTRIBUTION: Not applicable AMBULATORY STATUS: [facility] ANTIPLATELET OR ANTICOAGULATION STATUS: Aspirin 81 mg [...] EC tablet Take 81 mg by mouth. obgzodnwxv-nfizousc-uqywkyvftn (BREZTRI AEROSPHERE) 160-9-4.8 mcg/actuation HFA aerosol inhaler [...] in all muscle groups. Except right hand surgical manager weakness SENSORY: Normal sensory exam GAIT: Stable [...] over bilateral hand. Noticed minimal right hand surgical manager weakness and dropping things. Noticed minimal imbalance [...] tandem walk is a difficulty. Right hand surgical manager is weak. No sensory deficit. Guevara's present [...] the patient or the patient s personal sales and merchandising representative. The patient has elected to schedule [...] TIME: 8:50 AM PAGER: documented in this encounterPaulding County Hospital04-23-2024 NoteHNO ID: [id number] Author: REBECA MARTINEZ MD Service: ? Author Type: Physician Type: Progress Notes Filed: 06/19/2023 09:48 Note Text: SPINE SURGERY NEW PATIENT This is an in-person visit. PCP: No primary care provider on file. REFERRING PROVIDER: Ms.Pacenta STEPHENS SUBJECTIVE CHIEF COMPLAINT: Shocklike sensation in bilateral upper extremity Walking difficulty Hand surgical manager weakness HISTORY OF PRESENT ILLNESS: Sunni Blackburn [...] over bilateral hand. Noticed minimal right hand surgical manager weakness and dropping things. Noticed minimal imbalance [...] EC tablet Take 81 mg by mouth. sgxjzndgdh-fmntvlup-yqvksoluda (BREZTRI AEROSPHERE) 160-9-4.8 mcg/actuation HFA aerosol inhaler [...] extremities dry, in (more content not included)... [phone] NoteHNO ID: [id number] Author: NIKKIE NG APRN.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 Service: ? Author Type: Nurse Practitioner Type: [...] reported symptoms. Patient should hand carry imaging disc.[facility]03-21-2024 NoteHNO ID: [id number] Author: ?, ?, ? Service: ? Author Type: ? Type: Progress Notes Filed: 05/23/2023 16:15 Note Text: Patient name: Sunni Blackburn Are you being referred by a [facility] Spine Health Provider or Pain Management Provider at [facility]? No If answer is YES please schedule directly with surgeon, triage does not need to be completed. Is this a self-referral No If not, who is the Referring Provider 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, SHANNON Is this a 2nd opinion from another spine surgeon? No Were you offered surgery? No MRI/CT/myelogram within 12 months? Yes If NO , please refer to medical spine or PCP to complete above imaging, triage does not need to be completed If YES,? please ask for the name/address of the facility where the MRI/CT/myelogram was completed: [place] [address] MRI/CT/myelogram viewable in Epic: No If not, please provide [phone] to fax in imaging reports for review. Also, please inform patient to hand carry imaging disc to appointment. XR (spine) within 12 months: Yes If YES,? please ask for the name/address of the facility where the XR was completed: [facility] [address] [place] [address] Dr. Ramirez's patients: Have you had previous [...] injections and/or physical therapy was completed Injections [facility] [address] [facility] [place] [address] 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, cervical region documented [facility] [place] [facility]* Diagnosis Pre-op testing- Primary Preoperative examination, unspecified 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, 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, cervical region documented [facility] this [facility] [place] [facility]* Diagnosis 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, 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, cervical region documented [facility] [place] [facility]* Diagnosis Pre-op examination- Primary Preoperative examination, [...] morning of surgery documented in this encounter [facility] [place] [facility]* Diagnosis Cervical vertebral fusion- Primary Other unspecified back disorder documented in this encounter [facility] [place] noteNo assessment information availableUniversity [facility]als [facility] Work Phone: Evaluation note* Diagnosis COPD exacerbation [...] at L4-L5 level Chronic rhinitis Primary hypertension (CMS/[facility])- Primary Unspecified essential hypertension Cervical cord myelomalacia (CMS/HCC) Cervical spinal stenosis Spinal stenosis in cervical region Numbness and tingling Disturbance of skin sensation Pulmonary emphysema, unspecified emphysema type (CMS/HCC) BMI 29.0-29.9,adult Tobacco user Tobacco use disorder COPD exacerbation ([facility]/HCC)- Primary Obstructive chronic bronchitis with exacerbation Pulmonary emphysema, unspecified emphysema type ([facility]/HCC) Tobacco user Tobacco use disorder BMI 29.0-29.9,adult COPD exacerbation ([facility]/HCC)- Primary Obstructive chronic bronchitis with exacerbation BMI 29.0-29.9,adult Tobacco user Tobacco use disorder Encounter for subsequent annual wellness visit (AWV) in Medicare patient- Primary Tobacco user Tobacco use disorder Primary hypertension ([facility]) Unspecified essential hypertension Pulmonary emphysema, unspecified emphysema type ([facility]/HCC) Asymptomatic bilateral carotid artery stenosis Dysphagia, unspecified type Iron deficiency anemia, unspecified iron deficiency anemia type [facility]* Diagnosis COPD exacerbation ([facility]/HCC)- Primary Obstructive chronic bronchitis with exacerbation Centrilobular [...] Tobacco user Tobacco use disorder COPD exacerbation ([facility]/HCC)- Primary Obstructive chronic bronchitis with exacerbation Pulmonary emphysema, unspecified emphysema type (CMS/HCC) Tobacco user Tobacco use disorder BMI 29.0-29.9,adult COPD exacerbation ([facility]/HCC)- Primary Obstructive chronic bronchitis with exacerbation BMI 29.0-29.9,adult Tobacco user Tobacco use disorder Encounter for subsequent annual wellness visit (AWV) in Medicare patient- Primary Tobacco user Tobacco use disorder Primary hypertension ([facility]) Unspecified essential hypertension Pulmonary emphysema, unspecified emphysema type ([facility]/HCC) Asymptomatic bilateral carotid artery stenosis Dysphagia, unspecified type Iron deficiency anemia, unspecified iron deficiency anemia type Dysphagia, unspecified type- Primary History of mastoidectomy Other postprocedural status [facility]* Diagnosis COPD exacerbation ([facility])- Primary Obstructive chronic bronchitis with exacerbation Centrilobular emphysema ([facility]) Cervical spinal stenosis- Primary Spinal stenosis in cervical region Centrilobular emphysema ([facility]) Tobacco user Tobacco use disorder Spinal stenosis at L4-L5 level Chronic rhinitis Primary hypertension ([facility])- Primary Unspecified essential hypertension Cervical cord myelomalacia ([facility]) Cervical spinal stenosis Spinal stenosis in cervical region Numbness and tingling Disturbance of skin sensation Pulmonary emphysema, unspecified emphysema type (CMS/[facility]) BMI 29.0-29.9,adult Tobacco user Tobacco use disorder COPD exacerbation ([facility])- Primary Obstructive chronic bronchitis with exacerbation Pulmonary emphysema, unspecified emphysema type ([facility]) Tobacco user Tobacco use disorder BMI 29.0-29.9,adult COPD exacerbation ([facility])- Primary Obstructive chronic bronchitis with exacerbation BMI 29.0-29.9,adult Tobacco user Tobacco use disorder Encounter for subsequent annual wellness visit (AWV) in Medicare patient- Primary Tobacco user Tobacco use disorder Primary hypertension ([facility]) Unspecified essential hypertension Pulmonary emphysema, unspecified emphysema type ([facility]) Asymptomatic bilateral carotid artery stenosis Dysphagia, unspecified type Iron deficiency anemia, unspecified iron deficiency anemia type Gastroesophageal reflux disease with esophagitis, unspecified whether hemorrhage- Primary Dysphagia, unspecified type [facility]* Diagnosis History of mastoidectomy- Primary Other postprocedural status Decreased hearing of both ears Dysfunction of Eustachian tube, unspecified laterality Tobacco abuse Tobacco use disorder [facility]* Diagnosis COPD exacerbation ([facility])- Primary Obstructive chronic bronchitis with exacerbation Centrilobular [...] goiter Statin intolerance [facility] Diagnosis Peripheral vascular disease ([facility]-HCC)- Primary Unspecified peripheral vascular disease Bilateral carotid artery stenosis Occlusion and stenosis of carotid artery without mention of cerebral infarction Cigarette smoker Tobacco use disorder [facility] Diagnosis Pre-op examination- Primary Preoperative examination, [...] disease (HCC) Peripheral vascular disease, unspecified Cervical vertebral fusion- Primary Other unspecified back disorder [facility] Diagnosis Pre-op examination- Primary Preoperative [...] disease (HCC) Peripheral vascular disease, unspecified Cervical vertebral fusion Other unspecified back disorder [facility] Diagnosis Peripheral vascular disease- Primary Unspecified peripheral vascular disease Bilateral carotid artery stenosis Occlusion and stenosis of carotid artery without mention of cerebral infarction Cigarette smoker Tobacco use disorder Bilateral carotid artery stenosis- Primary Occlusion and stenosis of carotid artery without mention of cerebral infarction Claudication Unspecified peripheral vascular disease Encounter for abdominal aortic aneurysm (AAA) screening documented [facility]* Diagnosis COPD exacerbation (CMS/HCC)- Primary Obstructive [...] nodule (CMS/HCC) Nontoxic uninodular goiter Statin intolerance Dysphagia, unspecified type- Primary Gastroesophageal reflux disease with esophagitis, unspecified whether hemorrhage Tobacco abuse Tobacco use disorder Decreased hearing of both ears History of mastoidectomy Other postprocedural status documented in this encounter [facility]* Diagnosis COPD exacerbation (CMS/HCC)- Primary [...] nodule (CMS/HCC) Nontoxic uninodular goiter Statin intolerance Primary hypertension (CMS/HCC)- Primary Unspecified essential hypertension Pulmonary emphysema, unspecified emphysema type (CMS/HCC) Cigarette nicotine dependence without complication Screening for prostate cancer Special screening for malignant neoplasm of prostate Iron deficiency anemia, unspecified iron deficiency anemia type Upset stomach Dyspepsia and other specified disorders of function of stomach documented in this encounter [facility]* Diagnosis COPD exacerbation (CMS/HCC)- Primary [...] nodule (CMS/HCC) Nontoxic uninodular goiter Statin intolerance Primary hypertension (CMS/HCC)- Primary Unspecified essential hypertension Pulmonary emphysema, unspecified emphysema type (CMS/HCC) Cigarette nicotine dependence without complication Screening for prostate cancer Special screening for malignant neoplasm of prostate Iron deficiency anemia, unspecified iron deficiency anemia type Upset stomach Dyspepsia and other specified disorders of function of stomach Primary hypertension (CMS/HCC)- Primary Unspecified essential hypertension Cigarette nicotine dependence without complication Other fatigue Mixed hyperlipidemia (CMS/HCC) Mixed hyperlipidemia [facility] [...] nodule (CMS/HCC) Nontoxic uninodular goiter Statin intolerance Primary hypertension (CMS/HCC)- Primary Unspecified essential hypertension Pulmonary emphysema, unspecified emphysema type (CMS/HCC) Cigarette nicotine dependence without complication Screening for prostate cancer Special screening for malignant neoplasm of prostate Iron deficiency anemia, unspecified iron deficiency anemia type Upset stomach Dyspepsia and other specified disorders of function of stomach Primary hypertension (CMS/HCC) Unspecified essential hypertension documented in this encounter [facility] HealthcareInstructionsNot on filedocumented in this encounterProMckitrick [facility] SystemReason for referral (narrative)* Diagnostic Procedure Only (Routine) - Closed Specialty Diagnoses / Procedures Referred By Contac t Referred To Contact XR IMAGING Diagnoses Cervical disc disorder with myelopathy of mid-cervical region Procedures XR CERV OTHER 4V AP/LAT/FLX/EXT RADEX SPINE CERVICAL 4 [place] [id number] [address] [place] [address] [place] [id number] Referral ID Status Reason Start Date Expiration Date V isits Requested Visits Authorized [id number] Closed Auto-Generate d Referral 06/19/2023 07/18/2024 1 1 [facility] for referral (narrative)* Outpatient Procedure [...] ECG W/LEAST 12 LDS W/I&R Clovis Gunderson [employer]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.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 [address] [place] [address] [facility] [place] [address] [id number] Referral ID Status Reason Start Date Expiration Date Visits Requested Visits Authorized [id number] Pending Review Auto-Generat ed Referral 07/12/2023 07/11/2024 1 1 [facility] for referral (narrative)* Diagnostic Procedure Only (Routine) - Authorized Specialty Diagnoses / Procedures Referred By Contac t Referred To Contact XR IMAGING Diagnoses Cervical vertebral fusion Procedures XR CERV GENERAL 2V AP/LAT RADEX SPINE CERVICAL 2 OR 3 [place] [address] [place] [address] [place] [id number] Referral ID Status Reason Start Date Expiration Date Visits Requested Visits Authorized [id number] Authorized Auto-Generat ed Referral 08/23/2023 09/21/2024 1 1 * Physical Therapy (Routine) - Authorized Specialty Diagnoses / Procedures Referred By Contac t Referred To Contact [facility] Diagnoses Cervical vertebral fusion Procedures CONSULT TO PHYSICAL THERAPY PHYSICAL THERAPY EVALUATION HIGH COMPLEX 45 [place] [address] [place] [address] [facility] [place] [address] [place] [address] Referral ID Status Reason Start Date Expiration Date Visits Requested Visits Authorized [id number] Authorized PCP Requested Referral Auto-Generate d Referral 08/23/2023 08/22/2024 99 99 [facility] for visit Narrative* Diagnostic Procedure Only (Routine) - Closed Specialty Diagnoses / Procedures Referred By Contac t Referred To Contact XR IMAGING Diagnoses Cervical disc disorder with myelopathy of mid-cervical region Procedures XR CERV OTHER 4V AP/LAT/FLX/EXT RADEX SPINE CERVICAL 4 [place] 5 [place] [address] [place] [address] [place] [id number] Referral ID Status Reason Start Date Expiration Date V isits Requested Visits Authorized [id number] Closed Auto-Generate d Referral 06/19/2023 07/18/2024 1 1 [facility] for visit Narrative* Diagnostic Procedure Only (Routine) - Closed Specialty Diagnoses / Procedures Referred By Contac t Referred To Contact XR IMAGING Diagnoses Cervical vertebral fusion Procedures XR CERV GENERAL 2V AP/LAT RADEX SPINE CERVICAL 2 OR 3 [place] [address] [place] [address] Phone: tel: fax: [place] [address] Referral ID Status Reason Start Date Expiration Date V isits Requested Visits Authorized [id number] Closed Auto-Generate d Referral 08/23/2023 09/21/2024 1 1 [facility] Summary Purpose Family History Relationship Condition [...] PACC - PRE ANESTHESIA CONSULTATION CLINIC OFFICE/OUTPATIENT [facility] MDM 60 MINUTES Rufina Wiggins PA-C [id number] [place] [address] Referral ID Status Reason Start Date Expiration Date Visits Requested Visits Authorized [id number] Authorized PCP Requested Referral 06/19/2023 06/18/2024 1 [...] section and content) DATE CREATED AUTHOR 08/22/2017 [facility] DATE CREATED AUTHOR AUTHOR'S ORGANIZ ATION 08/04/2022 [facility] DATE CREATED AUTHOR AUTHOR'S ORGANIZ ATION 08/24/2023 [facility] DATE CREATED AUTHOR AUTHOR'S ORGANIZ ATION 01/15/2024 [facility] DATE CREATED AUTHOR AUTHOR'S ORGANIZ ATION 05/04/2024 [facility] DATE CREATED AUTHOR AUTHOR'S ORGANIZ ATION 05/23/2024 [facility] DATE CREATED AUTHOR AUTHOR'S ORGANIZ ATION 06/20/2024 [facility] EPIC Care Teams (unrecognized sec tion and content) Dermatology Procedural Physician Relationship Specialty Start Date End Date 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 NP [address] [place] [address] Nurse Practitioner Family Medicine 02/26/22 Dermatology Procedural Physician Relationship Specialty Start Date End Date 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 [address] [place] [address] Family Medicine 05/17/23 Dermatology Procedural Physician Relationship Specialty Start Date End Date 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 [address] [place] [address] Family Medicine 05/17/23 Dermatology Procedural Physician Relationship Specialty Start Date End Date 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 CNP [address] [place] [address] Family Medicine 05/17/23 Dermatology Procedural Physician Relationship Specialty Start Date End Date 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 [address] [place] [address] PCP - General Family Medicine 07/12/23 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 CNP [address] [place] [address] Family Medicine 05/17/23 Dermatology Procedural Physician Relationship Specialty Start Date End Date 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 [address] [place] [address] PCP - General Family Medicine 07/12/23 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 CNP [address] [place] [address] Family Medicine 05/17/23 Dermatology Procedural Physician Relationship Specialty Start Date End Date 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 CNP [address] [place] [address] PCP - General Family Medicine 07/12/23 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, 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 [address] [place] [address] Family Medicine 05/17/23 Dermatology Procedural Physician Relationship Specialty Start Date End Date 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, 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 [address] [place] [address] PCP - General Family Medicine 07/12/23 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, 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 [address] [place] [address] Family Medicine 05/17/23 Dermatology Procedural Physician Relationship Specialty Start Date End Date 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, 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 [address] [place] [address] PCP - General Family Medicine 07/12/23 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, 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 [address] [place] [address] Family Medicine 05/17/23 Dermatology Procedural Physician Relationship Specialty Start Date End Date 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, 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 [address] [place] [address] PCP - General Family Medicine 07/12/23 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, 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 [address] [place] [address] Family Medicine 05/17/23 Team Status: Active Member Role Status Dates Nannette Long APRN [employer] CH[employer]F-C Primary Care Provider Active Team Status: Inactive Member Role Status Dates Nannette Long APRN [employer] CHIEF-C Primary Care Provider Active Start: October 19, 2023 End: October 19, 2023 Jyoti Mendoza APRN Attending Provider Active Start: October 19, 2023 End: October 19, 2023 Dermatology Procedural Physician Relationship Specialty Start Date End Date Víctor Chadwick MD [address] [place] [address] PCP - General Family Medicine 04/16/23 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 NP [address] [place] [address] Nurse Practitioner Family Medicine 02/26/22 Jovany Ovalle DO [address] [place] [address] Otolaryngology 11/08/23 Dermatology Procedural Physician Relationship Specialty Start Date End Date Víctor Chadwick MD [address] [place] [address] PCP - General Family Medicine 04/16/23 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 NP [address] [place] [address] Nurse Practitioner Family Medicine 02/26/22 Jovany Ovalle DO [address] [place] [address] Otolaryngology 11/08/23 Dermatology Procedural Physician Relationship Specialty Start Date End Date Víctor Chadwick MD [address] [place] [address] PCP - General Family Medicine 04/16/23 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 NP [address] [place] [address] Nurse Practitioner Family Medicine 02/26/22 Jovany Ovalle DO [address] [place] [address] Otolaryngology 11/08/23 Dermatology Procedural Physician Relationship Specialty Start Date End Date Víctor Chadwick MD [address] [place] [address] PCP - General Family Medicine 04/16/23 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 NP [address] [place] [address] Nurse Practitioner Family Medicine 02/26/22 Jovany Ovalle, [address] [place] [address] Otolaryngology 11/08/23 Dermatology Procedural Physician Relationship Specialty Start Date End Date Víctor Chadwick MD [address] [place] [address] PCP - General Family Medicine 12/27/23 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 NP [address] [place] [address] Nurse Practitioner Family Medicine 02/26/22 Jovany Ovalle DO [address] [place] [address] Otolaryngology 11/08/23 Dermatology Procedural Physician Relationship Specialty Start Date End Date Víctor Chadwick MD [address] [place] [address] PCP - General Family Medicine 12/27/23 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 NP [address] [place] [address] Nurse Practitioner Family Medicine 02/26/22 Jovany Ovalle DO [address] [place] [address] Otolaryngology 11/08/23 Team Status: Active Member Role Status Dates 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 Primary Care Provider Active Team Status: Inactive Member Role Status Dates Jovany Ovalle DO Attending Provider Active S tart: January 10, 2024 End: January 10, 2024 eDvi Monteiro Primary Care Provider Active Sta rt: January 10, 2024 End: January 10, 2024 Dermatology Procedural Physician Relationship Specialty Start Date End Date Víctor Cahdwick MD [address] [place] [address] PCP - General Family Medicine 12/27/23 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 NP [address] [place] [address] Nurse Practitioner Family Medicine 02/26/22 Jovany Ovalle DO [address] [place] [address] Otolaryngology 11/08/23 Dermatology Procedural Physician Relationship Specialty Start Date End Date Víctor Chadwick MD [address] [place] [address] PCP - General Family Medicine 12/27/23 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 NP [address] [place] [address] Nurse Practitioner Family Medicine 02/26/22 Jovany Ovalle DO [address] [place] [address] Otolaryngology 11/08/23 Dermatology Procedural Physician Relationship Specialty Start Date End Date Víctor Chadwick MD [address] [place] [address] PCP - General Family Medicine 04/16/23 Devi Monteiro NP [address] [place] [address] Nurse Practitioner Family Medicine 02/26/22 Jovany Ovalle DO [address] [place] [address] Otolaryngology 11/08/23 Dermatology Procedural Physician Relationship Specialty Start Date End Date Víctor Chadwick MD [address] [place] [address] PCP - General Family Medicine 04/16/23 Devi Monteiro NP [address] [place] [address] Nurse Practitioner Family Medicine 02/26/22 Jovany Ovalle DO [address] [place] [address] Otolaryngology 11/08/23 Dermatology Procedural Physician Relationship Specialty Start Date End Date Víctor Chadwick MD [address] [place] [address] PCP - General Family Medicine 12/27/23 Devi Monteiro NP [address] [place] [address] Nurse Practitioner Family Medicine 02/26/22 Jovany Ovalle DO [address] [place] [address] Otolaryngology 11/08/23 Dermatology Procedural Physician Relationship Specialty Start Date End Date Víctor Chadwick MD [address] [place] [address] PCP - General Family Medicine 12/27/23 Devi Monteiro NP [address] [place] [address] Nurse Practitioner Family Medicine 02/26/22 Jovany Ovalle DO [address] [place] [address] Otolaryngology 11/08/23 Dermatology Procedural Physician Relationship Specialty Start Date End Date Víctor Chadwick MD [address] [place] [address] PCP - General Family Medicine 12/27/23 Devi Monteiro NP [address] [place] [address] Nurse Practitioner Family Medicine 02/26/22 Jovany Ovalle DO [address] [place] [address] Otolaryngology 11/08/23 Dermatology Procedural Physician Relationship Specialty Start Date End Date Víctor Chadwick MD [address] [place] [address] PCP - General Family Medicine 12/27/23 Devi Monteiro NP [address] [place] [address] Nurse Practitioner Family Medicine 02/26/22 Jovany Ovalle DO [address] [place] [address] Otolaryngology 11/08/23 Dermatology Procedural Physician Relationship Specialty Start Date End Date Víctor Chadwick MD [address] [place] [address] PCP - General Family Medicine 12/27/23 Devi Monteiro, SHANNON [address] [place] [address] Nurse Practitioner Family Medicine 02/26/22 Jovany Ovalle DO [address] [place] [address] Otolaryngology 11/08/23 Dermatology Procedural Physician Relationship Specialty Start Date End Date Nannette Long, WO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-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 PCP - General Nurse Practitioner 12/09/18 Dermatology Procedural Physician Relationship Specialty Start Date End Date Devi Monteiro, 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 [address] [place] [address] PCP - General Family Medicine 07/12/23 Devi Monteiro, 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 [address] [place] [address] Family Medicine 05/17/23 Dermatology Procedural Physician Relationship Specialty Start Date End Date Devi Monteiro, 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 [address] [place] [address] PCP - General Family Medicine 07/12/23 Devi Monteiro, 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 [address] [place] [address] Family Medicine 05/17/23 Dermatology Procedural Physician Relationship Specialty Start Date End Date Nannette Long, WO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-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 PCP - General Nurse Practitioner 12/09/18 Dermatology Procedural Physician Relationship Specialty Start Date End Date Víctor Chadwick MD [address] [place] [address] PCP - General Family Medicine 12/27/23 Devi Monteiro NP [address] [place] [address] PCP - ACO Reach 04/04/24 Devi Monteiro NP [address] [place] [address] Nurse Practitioner Family Medicine 02/26/22 Jovany Ovalle DO [address] [place] [address] Otolaryngology 11/08/23 Dermatology Procedural Physician Relationship Specialty Start Date End Date Víctor Chadwick MD [address] [place] [address] PCP - General Family Medicine 12/27/23 Devi Monteiro NP [address] [place] [address] PCP - ACO Reach 04/04/24 Devi Monteiro NP [address] [place] [address] Nurse Practitioner Family Medicine 02/26/22 Jovany Ovalle DO [address] [place] [address] Otolaryngology 11/08/23 Dermatology Procedural Physician Relationship Specialty Start Date End Date Víctor Chadwick MD [address] [place] [address] PCP - General Family Medicine 12/27/23 Devi Monteiro NP [address] [place] [address] PCP - ACO Reach 04/04/24 Devi Monteiro NP [address] [place] [address] Nurse Practitioner Family Medicine 02/26/22 Jovany Ovalle DO [address] [place] [address] Otolaryngology 11/08/23 Dermatology Procedural Physician Relationship Specialty Start Date End Date Víctor Chadwick MD [address] [place] [address] PCP - General Family Medicine 12/27/23 Devi Monteiro NP [address] [place] [address] PCP - ACO Reach 04/04/24 Devi Monteiro NP [address] [place] [address] Nurse Practitioner Family Medicine 02/26/22 Jovany Ovalle DO [address] [place] [address] Otolaryngology 11/08/23 Dermatology Procedural Physician Relationship Specialty Start Date End Date Víctor Chadwick MD [address] [place] [address] PCP - General Family Medicine 12/27/23 Devi Monteiro NP [address] [place] [address] PCP - ACO Reach 04/04/24 Devi Monteiro NP [address] [place] [address] Nurse Practitioner Family Medicine 02/26/22 Jovany Ovalle DO [address] [place] [address] Otolaryngology 11/08/23 Dermatology Procedural Physician Relationship Specialty Start Date End Date Víctor Chadwick MD [address] [place] [address] PCP - General Family Medicine 12/27/23 Devi Monteiro NP [address] [place] [address] PCP - ACO Reach 04/04/24 Devi Monteiro NP [address] [place] [address] Nurse Practitioner Family Medicine 02/26/22 Jovany Ovalle DO [address] [place] [address] Otolaryngology 11/08/23 Dermatology Procedural Physician Relationship Specialty Start Date End Date Víctor Chadwick MD [address] [place] [address] PCP - General Family Medicine 12/27/23 Devi Monteiro NP [address] [place] [address] PCP - ACO Reach 04/04/24 Devi Monteiro NP [address] [place] [address] Nurse Practitioner Family Medicine 02/26/22 Jovany Ovalle DO [address] [place] [address] Otolaryngology 11/08/23 Source Comments (unrecognize d section and content) In the event this informatio n is protected by the Federal Confidentiality of Alcohol and Drug Abuse Patient Records regulations: The Federal rules restrict any use of the information to criminally investigate or prosecute any alcohol or drug abuse patient.[facility] the event this information is protected by the Federal Confidentiality of Alcohol and Drug Abuse Patient Records regulations: The Federal rules restrict any use of the information to criminally investigate or prosecute any alcohol or drug abuse patient.[facility] the event this information is protected by the Federal Confidentiality of Alcohol and Drug Abuse Patient Records regulations: The Federal rules restrict any use of the information to criminally investigate or prosecute any alcohol or drug abuse patient.[facility] the event this information is protected by the Federal Confidentiality of Alcohol and Drug Abuse Patient Records regulations: The Federal rules restrict any use of the information to criminally investigate or prosecute any alcohol or drug abuse patient.[facility] the event this information is protected by the Federal Confidentiality of Alcohol and Drug Abuse Patient Records regulations: The Federal rules restrict any use of the information to criminally investigate or prosecute any alcohol or drug abuse patient.[facility] the event this information is protected by the Federal Confidentiality of Alcohol and Drug Abuse Patient Records regulations: The Federal rules restrict any use of the information to criminally investigate or prosecute any alcohol or drug abuse patient.[facility] the event this information is protected by the Federal Confidentiality of Alcohol and Drug Abuse Patient Records regulations: The Federal rules restrict any use of the information to criminally investigate or prosecute any alcohol or drug abuse patient.[facility] the event this information is protected by the Federal Confidentiality of Alcohol and Drug Abuse Patient Records regulations: The Federal rules restrict any use of the information to criminally investigate or prosecute any alcohol or drug abuse patient.[facility] the event this information is protected by the Federal Confidentiality of Alcohol and Drug Abuse Patient Records regulations: The Federal rules restrict any use of the information to criminally investigate or prosecute any alcohol or drug abuse patient.[facility] the event this information is protected by the Federal Confidentiality of Alcohol and Drug Abuse Patient Records regulations: The Federal rules restrict any use of the information to criminally investigate or prosecute any alcohol or drug abuse patient.[facility]In the event this information is protected by the Federal Confidentiality of Alcohol and Drug Abuse Patient Records regulations: The Federal rules restrict any use of the information to criminally investigate or prosecute any alcohol or drug abuse patient.[facility]In the event this information is protected by the Federal Confidentiality of Alcohol and Drug Abuse Patient Records regulations: The Federal rules restrict any use of the information to criminally investigate or prosecute any alcohol or drug abuse patient.[facility] Reason for Visit (unrecogniz ed section and content) Reason Comments New Patient Numbness/Tingling Numbness Tingling kaur nds and feet Specialty Diagnoses / Procedures Referred By Contac t Referred To Contact [facility]surgery [facility] Diagnoses Spinal stenosis at L4-L5 level Cervical spinal stenosis Procedures AMB REFERRAL TO NEUROSURGERY Devi Monteiro, 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 [address] [place] [address] Lewis Hernandez MD [facility] [address] [place] [address] Referral ID Status Reason Start Date Expiration Date V isits Requested Visits Authorized [id number] Outside PCP 05/14/2023 11/10/2023 1 1 Specialty Diagnoses / Procedures Referred By Contac t Referred To Contact Diagnoses Pre-op testing Procedures REFER TO PACC - PRE ANESTHESIA CONSULTATION CLINIC OFFICE/OUTPATIENT NEW HIGH MDM 60 MINUTES Rufina Wiggins PA-C [id number] 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 Reason Comments Dysphagia New Problem : Dyspha airam Specialty Diagnoses / Procedures Referred By Contac t Referred To Contact Otolaryngology Diagnoses Dysphagia, unspecified type Procedures [place] OFFICE/OUTPATIENT NEW HIGH MDM 60 MINUTES Devi Monteiro NP [address] [place] [address] Phone: tel: fax: Jovany Ovalle, DO [address] [facility] [place] [address] Phone: tel: fax: Referral ID Status Reason Start Date Expiration Date V isits Requested Visits Authorized [id number] Closed Specialty Services Required 12/18/2023 06/15/2024 1 0 Reason Comments Dysphagia MBS / Esoph results Reason Comments Mastoid Cleaning 6 month evelyne Reason Comments COPD Reason Comments 1year follow up testing Vas art doppler lwr bilat mult lev/ No testing done prior to appointment. Denies any problems today Reason Comments Established Patient Reason Comments Follow up to go over testi ng to be completed at [place] Follow up to go over testing to be com pleted at [facility] art doppler lwr bilat mult lev/PVRVas carotid duplex bilateralPeripheral vascular disease ([facility])Bilateral carotid artery stenosis Reason Comments Mastoid Cleaning Reason Comments Hypertension Goals (unrecognized section and content) Goals may be documented in a n alternate sectionGoals may be documented in an alternate sectionNot on filedocumented as of this encounterNot on filedocumented as of this encounter FOR [...] BE BASED ON THE PRIMARY CLINICAL RECORDS. [facility] [employer] [facility]. provides no warranty or guarantee of the accuracy or completeness of information in this document.
== END 2024-07-10 09:41 | disposition home or self-care (01) ==
LOC: CARD 09:41
PROVIDERS: PCP Nurse Practitioner; Visit Provider Nurse Practitioner
DX: I10 Essential (primary) hypertension (principal); R53.83 Other fatigue; F17.210 Nicotine dependence, cigarettes, uncomplicated; E78.2 Mixed hyperlipidemia; R06.00 Dyspnea, unspecified
CPT/HCPCS: 93306

== ENCOUNTER 2025-01-09 09:09 | Outpatient (OUT) | payer MEDICARE, SELFPAY ==
--- OUTSIDE RECORDS SUMMARY | 2025-01-09 09:13 | XMS_ITS | Clinical Summary ---
Author Organization [facility] Address [address] [place] [address] Care Team Providers Care B2B Managed Service Sales Exec Name Role Phone Devi Monteiro HOG BUYER Unavailable [phone] Jovany Mcdaniel DO Unavailable Devi Monteiro HOG BUYER Unavailable [phone] Víctor Chadwick MD Primary Care Provider [phone] Devi Monteiro NP Unavailable [phone] Allergies Active AllergyReactionsCriticalityNoted DateCommentsAmoxicillinNausea Only 10/31/2022moxicillin-Pot ClavulanateGI roujvvbnmcm07/05/2023acitracin 09/04/2022 Other Reaction(s): Unknown Bacitracin-Polymyxin RHjzgmndq68/05/2023enzalkonium JjtgoxjcPersIka72/16/2024 Blisters/scarring on skin. Xniudufokxd02/05/2023 Other Reaction(s): facial swelling Watftnhu95/10/2023 Other Reaction(s): Unknown Other12/09/2018 other Polymyxin B009/04/2022 Other Reaction(s): Unknown Dkuvaae9709/07/2020 MUSCLE WEAKNESS Medications MedicationSigDispense QuantityRefillsLast FilledStart DateEnd DateStatus Multiple Vitamins-Minerals (PreserVision AREDS 2) capsule Active albuterol HFA 90 mcg/act inhaler Indications:COPD exacerbation (HCC)Inhale 2 puffs every 6 (six) hours if needed for wheezing 18 g 4Active fluorouracil (Efudex) 5 % cream Apply 1 application topically at bedtime HS to Forehead ,temples, scalp and part line 3 times a week.4Active omeprazole (PriLOSEC) [address] capsule Indications:Dysphagia, unspecified typeTake 1 capsule (40 mg) by mouth in the morning. Take before meals. Do not crush or chew.. 30 capsule 5Active lisinopril 40 MG tablet Indications:Primary hypertensionTake 1 tablet (40 mg) by mouth Daily 90 tablet 5Active amLODIPine (Norvasc) 10 MG tablet Indications:Primary hypertensionTake 1 tablet (10 mg) by mouth Daily 90 tablet 5Active pregabalin (Lyrica) 50 MG capsule Take 50 mg by mouth in the morning and 50 mg in the evening.5Active Active Problems ProblemNoted DateDiagnosed DateOther yxizhfu0906/24/2024igarette nicotine dependence without yukwnripqiof29/24/2025 Assessment & Plan (06/19/2024 6:34 AM EDT): The patient has been advised of the risks of continued smoking: stroke, NE, all forms of cancer, lung disease, and . Options for quitting smoking include: cold turkey, hypnosis, acupuncture, nicotine replacement meds(gum, lozenges, and patches), Buproprion, and Varenicline. At this time pt is encouraged to evaluate their goals for wanting to quit smoking, and reach out toprovider when ready to start this process Upset aziirvp3306/19/2024 Assessment & Plan (06/19/2024 10:53 AM EDT): No fever or urinary c/o No change in bowel habits Check labs Recommend taking the PPI as directed has a fu appt in 3 weeks he will check in with me at that time Tvjabckjdopf23/27/2025Statin lfpayncqzyg09/22/2025 Assessment & Plan (03/19/2024 12:06 PM EST): Severe leg pain and weakness when taking statin in the past, will not take this Rash02/25/2024 Assessment & Plan (02/25/2024 12:58 PM EST): Non specific, no recent detergent or shower soaps no new meds Does not look like zoster, or scabies either Could be eczema At this pont we will see if steroids help resolve it or not If not better contact office Encounter for subsequent annual wellness visit (AWV) in Medicare patient 12/18/2023 Assessment & Plan (12/18/2023 11:14 AM EDT): Reviewed Ht/Wt/BMI Recommend eye exam yearly Recommend dental exams twice a year Balance work/leisure activities Exercises is recommended most days of the week (appropriate as chronic conditions allow) Follow up yearly and prn DONNA (iron deficiency anemia)12/18/2023 Assessment & Plan (03/19/2024 12:05 PM EST): Low iron levels, could not tolerate oral iron supplements, wanted IV iron infusion This was ordered: Venofer was ordered in 12/19, had an infusion X1 Will recheck labs Assessment & Plan (12/18/2023 11:41 AM EDT): Pt does report that he does have fatigue, is unable to tolerate oral iron supplement He would like to trial an IV iron infusion Dysphagia, lwgsyffcruc85/20/2024 Assessment & Plan (03/19/2024 7:02 AM EST): Has seen ENT, is doing better Assessment & Plan (12/18/2023 11:31 AM EDT): Will refer to ENT Primary hgimndisbiqh21/01/2024 Assessment & Plan (06/19/2024 6:33 AM EDT): Please check blood pressure daily and record DASH diet Limit caffeine Take medication as directed Contact office if chest pain, pressure, dizziness, shortness of breath, swelling legs Recommend slow position changes Current meds: amlodipine, and lisinopril Assessment & Plan (03/19/2024 7:02 AM EST): Please check blood pressure daily and record DASH diet Limit caffeine Take medication as directed Contact office if chest pain, pressure, dizziness, shortness of breath, swelling legs Recommend slow position changes Current meds: amlodipine, and lisinopril Assessment & Plan (12/18/2023 11:30 AM EDT): Stable no dose changes Assessment & Plan (06/21/2023 9:59 AM EDT): Not at goal, will increase amlodipine to 10mg daily Fu in 4 weeks for recheck Cervical cord knnihhiqodjw23/25/2024 Assessment & Plan (06/21/2023 9:58 AM EDT): Surgery planned for 08/06/23 History of khaaqqhcouzbb88/18/2024 Overview (05/14/2023): Hx R cholesteatoma Allergic gmdigdkt02/18/2024symptomatic bilateral carotid artery stenosis 05/14/2023 Assessment & Plan (03/19/2024 7:06 AM EST): Current meds: none Follows with Dr Barclay, carotids done in 02/18. Right external 57%, internals <50% Assessment & Plan (12/18/2023 11:31 AM EDT): Cont with vascular Assessment & Plan (06/21/2023 9:59 AM EDT): Continue with vasular Bodorvtsklzn51/13/2024hronic ivgmewkx08/12/2024 Assessment & Plan (05/14/2023 5:45 PM EDT): Will trial OTC cetirizine Had low dose CT chest in the last 12 months Mixed zvtpvhnjwgcqov51/06/2024Thyroid lavnrw3104/03/2023 Assessment & Plan (03/19/2024 12:04 PM EST): Will check labs Screening for prostate eshwgs8504/03/2023 Overview (06/20/2024): 06/20/24: 0.30 BMI 29.0-29.9,adult4COPD xejulcfvurut89/06/2024 Assessment & Plan (02/25/2024 12:56 PM EST): Concern w recent URI/sinus starting with early exacerbation Add steroids and atb Fu if not better Assessment & Plan (07/24/2023 9:51 AM EDT): Finished atb, feeling better, no acute dyspnea No wheeze No fu needed at this time for this exacerbation Assessment & Plan (07/16/2023 4:57 PM EDT): Will send in atb No steroids at this time, if not better in the next few days call office and we can add No cxr at this time Capmist DM: #8 pills, lot: [id number], exp 05/21 Assessment & Plan (04/18/2023 4:36 PM EST): Will provide sample of Capmist samples #10 pills Fu in 3 weeks Degenerative disc disease, qmgbgall05/17/2023Spinal stenosis at L4-L5 level 12/12/2022 Assessment & Plan (05/14/2023 5:36 PM EDT): MRI lumbar spine: DDD all levels, L3-L4 disc desiccation, left foraminal disc herniation, L5-S1: mod diffuse disc bulge See notes from Cervical spinal stenosis POC is the same Trochanteric bursitis of both hips11/28/2022Laryngopharyngeal vqynow6510/31/2022 Anti-BACK HOE MACHINE OPERATOR antibodies jzadilz2110/31/2022hronic obstructive pulmonary disease with fzrjyudmm12/05/2023 Overview (05/14/2023): PFT's 09/21/22: FEV1 75%, FVC 78%, and FEV1/FVC66%, COPD/Emphysema mod Assessment & Plan (06/19/2024 6:33 AM EDT): Recommend quitting smoking Current meds: albuterol prn, Breztri Assessment & Plan (03/19/2024 7:01 AM EST): Current meds: breztri, albuterol Assessment & Plan (02/25/2024 12:55 PM EST): Requested refill of breztri Assessment & Plan (12/18/2023 11:30 AM EDT): Stable Assessment & Plan (07/16/2023 4:56 PM EDT): #2 samples of breztri: lot [id number], exp 11/21 Assessment & Plan (06/21/2023 9:59 AM EDT): Stable at this time Assessment & Plan (05/14/2023 5:44 PM EDT): Continue breztri, gave him a spacer to trial Fu in 4 weeks Numbness and ppnclnvo06/08/8327Bgubnvwg73/08/2023Decreased hearing of both ears 09/05/2022Eustachian tube /11/2023Cervical spinal stenosis 09/05/2022 Assessment & Plan (05/14/2023 5:36 PM EDT): No hx of MRI cervical spine, we will obtain a copy of this, and also send a referral to Neuro Surgeon This patient is quite concerned to the point of being tearful regarding his worsening of symptoms and not feeling like anything is being done. 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 Options for quitting smoking include: cold turkey, hypnosis, acupuncture, nicotine replacement meds(gum, lozenges, and patches), Buproprion, and Varenicline. At this time pt is encouraged to evaluate their goals for wanting to quit smoking, and reach out toprovider when ready to start this process Assessment & Plan (03/19/2024 7:03 AM EST): The patient has been advised of the risks of continued smoking: stroke, NE, all forms of cancer, lung disease, and . Options for quitting smoking include: cold turkey, hypnosis, acupuncture, nicotine replacement meds(gum, lozenges, and patches), Buproprion, and Varenicline. At this time pt is encouraged to evaluate their goals for wanting to quit smoking, and reach out toprovider when ready to start this process Qakhfjzmee16S/P spinal sqzfmhx30Tobacco user Assessment & Plan (02/25/2024 12:57 PM EST): The patient has been advised of the risks of continued smoking: stroke, NE, all forms of cancer, lung disease, and . Options for quitting smoking include: cold turkey, hypnosis, acupuncture, nicotine replacement meds(gum, lozenges, and patches), Buproprion, and Varenicline. At this time pt is encouraged to evaluate their goals for wanting to quit smoking, and reach out toprovider when ready to start this process Assessment & Plan (12/18/2023 7:02 AM EDT): The patient has been advised of the risks of continued smoking: stroke, NE, all forms of cancer, lung disease, and . Options for quitting smoking include: cold turkey, hypnosis, acupuncture, nicotine replacement meds(gum, lozenges, and patches), Buproprion, and Varenicline. At this time pt is encouraged to evaluate their goals for wanting to quit smoking, and reach out toprovider when ready to start this process Assessment & Plan (06/21/2023 9:59 AM EDT): The patient has been advised of the risks of continued smoking: stroke, NE, all forms of cancer, lung disease, and . Options for quitting smoking include: cold turkey, hypnosis, acupuncture, nicotine replacement meds(gum, lozenges, and patches), Buproprion, and Varenicline. At this time pt is encouraged to evaluate their goals for wanting to quit smoking, and reach out toprovider when ready to start this process Fgnvon74/18//Mixed hearing loss10/31//3Atrophic flaccid tympanic membrane of left ear/3Chronic myringitis of left ear /06/2022Sudden left hearing loss10/31//3Bronchiectasis 10/31//5Carotid zfctrfeg91/28// Overview (07/16/2023): Last Assessment & Plan: Assessment: History of Left Carotid Enterectomy in [...] Dopplers. Continue with antiplatelets therapy and statins. Hmmyyvirrtwt06/01/202109/06/2022Essential vfbhakxoibfr70/01/202109/06/2022 Peripheral vascular fkahfsp86/reop cardiovascular exam /06/2022Shortness of /06/2022 Encounters DateTypeDepartmentCare ZaovNthhswpdgoq48/07/2025 3:45 PM EDTOffice Visit [facility] [address] [place] [phone] Jovany Mcdaniel DO Tobacco abuse (Primary Dx); History of mastoidectomy; Mixed hearing loss, xegrzsjnu80/07/2025amboo flowsheet [facility] [address] [place] [phone] Jovany Mcdaniel DO 12/02/20245703Gsgfox78/14/2025Orders Only [facility] [address] [place] [address] Devi Monteiro NP from Last 3 Months Immunizations ImmunizationAdministration DatesNext DueHep A, Adult09/06/2019,02/17/2019 Influenza, High Dose Seasonal, Preservative Free12/10/2023,11/16/2019Influenza, High-dose Seasonal, Quadrivalent, Preservative Free12/26/2021Influenza, Seasonal, Quadrivalent, Qbycbtpsip43/27/2023,12/01/2020Influenza, injectable, quadrivalent, preservative free12/21/2020,12/08/2015,12/09/2014Influenza, trivalent, xqmvtdxbmi12/08/2019Pneumococcal Conjugate PCV 13010/07/2014, 08/11/2014Pneumococcal Conjugate PCV 3Pneumococcal Polysaccharide DVGG45537566Tadb76/23/2019,08/14/2016Zoster, Xrjluztqxsq37/08/2020, 04/08/2019 Family History Medical HistoryRelationNameCommentsPancreatic cancerBrother 1brain tumorBrother 1Heart attackBrother 2DiabetesBrother 3CancerFatherHeart attackFatherHeart diseaseFatherHypertensionFatherProstate cancerFatherHeart diseaseMotherHeart diseaseSisterHyperlipidemiaSisterHypertensionSisterRelationNameStatusComments Brother 1DeceasedBrother 2DeceasedBrother 3AliveFatherDeceasedMaternal GrandfatherDeceasedMaternal GrandmotherDeceasedMotherDeceased (Age 97)Paternal GrandfatherDeceasedPaternal GrandmotherDeceasedSister Social History Tobacco UseTypesPacks/DayYears UsedDateSmoking Tobacco: Every DayCigarettes Smokeless Tobacco: Never Tobacco Cessation:Ready to Q uit: Not Asked; Counseling Given: Not Answered Comments:11-20 cigarettes/day Alcohol UseStandard Drinks/WeekCommentsNever0 (1 standard drink = 0.6 oz pure alcohol)Caffeine 3-4 cups per dayPHQ-2AnswerDate RecordedPatient Health Questionnaire-2 Msnpq546Sex and Gender InformationValueDate RecordedSex Assigned at CqssfSrpu59/05/2023 9:04 AM EDTLegal GkuSdna8705/10/2022 7:06 PM EDT Gender UkshxfmcIyup68/05/2023 9:04 AM EDTSexual OrientationNot on file Last Filed Vital Signs Vital SignReadingTime TakenCommentsBlood Zfizefiz433/7604 9:52 AM EDT Sckud1862 9:52 AM XGGHucgvvdivix98.1 ??C (98.7 ??F)06/19/2024 9:52 AM EDTRespiratory Swms639206/19/2024 9:52 AM EDTOxygen Xzsovqkerj06%06/19/2024 9:52 AM EDTInhaled Oxygen Concentration--Gwplhh64 kg (183 lb)12/02/2024 3:29 PM EDT Yclqoc616.3 cm (5' 6.25 )12/02/2024 3:29 PM EDTBody Mass Index29.311 3:29 PM EDT Plan of Treatment DateTypeDepartmentCare Team (Latest Contact Info)Dvnpjejhyug38/07/2026 3:45 PM EDTOffice Visit [facility] [address] [place] [address] Jovany Mcdaniel, DO [address] [place] [address] Health MaintenanceDue DateLast DoneCommentsCOVID-19 Vaccine ( season) 51, 09/13/2021, 02/12/2021, Additional history existsInfluenza Vaccine (#1), 12/22/2022, 12/26/2021, Additional history existsPneumococcal Vaccine: 65+ YqlstJkzdprhnb70/20/2023, 12/13/2015, 10/07/2014, Additional history exists Insurance * Guarantor: Yaron Blackburn [facility] TypeRelation to PatientDate of PhoneBilling AddressPersonal/EnkvbuYnna54/13/1941 Pending sale to [facility] [address] [address] Care Teams Team MemberRelationshipSpecialtyStart DateEnd Date Devi Monteiro NP [address] [place] [address] PCP - ACO Reach04/04/24 Víctor Chadwick MD [address] [place] [phone] [facility]/20/24 Devi Monteiro NP Nurse PractitionerFamily Medicine02/26/22 Jovany Mcdaniel DO [address] [place] [address] Otolaryngology11/08/23 Devi Monteiro NP [address] [place] [address] Nurse PractitionerM[facility] Medicine11/20/24
--- OUTSIDE RECORDS SUMMARY | 2025-01-09 09:13 | XMS_ITS | Clinical Summary ---
Author Organization [facility] Address [address] [place], [place] [id number] Care Team Providers Care Licensed Electrician Name Role Phone Devi Monteiro RESTAURANT COOK Unavailable [phone] Devi Monteiro RESTAURANT COOK Primary Care Provider [phone] Allergies Active AllergyReactionsCriticalityNoted DateCommentsBenzalkonium ChlorideRash 07/12/2023 Blisters/scarring on skin. Medications MedicationSigDispense QuantityRefillsLast FilledStart DateEnd DateStatus albuterol HFA (PROVENTIL HFA, VENTOLIN HFA) 90 mcg/actuation inhaler inhale 2 puffs by mouth and INTO THE LUNGS every 6 hours if needed for wheezing 4Active aspirin, enteric coated (ASPIRIN, ENTERIC COATED) 81 mg EC tablet Take 81 mg by mouth.Active apwtdenljn-luenzlvt-ucxppdjpgd (BREZTRI AEROSPHERE) 160-9-4.8 mcg/actuation HFA aerosol inhaler Inhale 2 Puffs as instructed.Active lisinopril (ZESTRIL) 40 mg tablet Take 40 mg by mouth.10/10/2018Active vit A,C,H-Cxei-Yfhfrn (PRESERVISION AREDS) 2,148 mcg-113 mg-45 mg-17.4mg tab Take 1 tablet by mouth daily with breakfast.Active amLODIPine (NORVASC) 10 mg tablet Take 10 mg by mouth once daily.Active pregabalin (LYRICA) 50 mg capsule Indications:Spinal stenosis of cervical regionTake 1 capsule by mouth two times a day for 30 days. 60 capsule 5Active Active Problems ProblemNoted DateDiagnosed DateS/P spinal bkfyrho90/10/2024Cervical cord dctjnqbmshye12/23/5662Ggnbld45/18/2024 Assessment & Plan (07/12/2023 10:30 AM EDT): Assessment: stable to get updated labs Tobacco user05/14/2023 Assessment & Plan (07/12/2023 10:30 AM EDT): Assessment: Current Smoker 0.5 ppd x 50 years COPD (chronic obstructive pulmonary disease)04/03/2023 Overview (07/12/2023): Last Assessment & Plan: Will provide sample of Capmist samples #10 pills Fu in 3 weeks Assessment & Plan (07/12/2023 10:32 AM EDT): Assessment: stable following with PCP Brunilda ocampo, gave him a spacer to trial To use inhaler morning of surgery Per note on 06/21/2023 Carotid fqaubdod92/28/2021 Assessment & Plan (07/12/2023 10:34 AM EDT): Assessment: History of Left Carotid Enterectomy in [...] with antiplatelets therapy and statins. Essential (primary) rcptpwgniunu32/01/2021 Assessment & Plan (07/12/2023 10:32 AM EDT): Assessment: Stable on medication Today BP: 156/73 Amlodipine was recently increased by PCP To take medication morning of surgery Peripheral vascular ljiljlm2307/27/2020 Assessment & Plan (07/12/2023 10:34 AM EDT): Assessment: stable per Vascular OV note Patient [...] arterial Dopplers. Continue with antiplatelets therapy andstatins. Family History Medical HistoryRelationCommentsDiabetesBrotherHeart AttackBrotherHeart Attack FatherHyperlipidemiaFatherProstate CancerFatherRelationStatusCommentsBrother Father Social History Tobacco UseTypesPacks/DayYears UsedDateSmoking Tobacco: Every DayCigarettes0.5 66.9Started: 1958Smokeless Tobacco: NeverAlcohol UseStandard Drinks/WeekComments Not Currently0 (1 standard drink = 0.6 oz pure alcohol)Area Deprivation Index AnswerDate RecordedNational Score (1-100), lower number is lower risk63 06/19/2023State Score (1-10), lower number is lower psbg035ata from: https://www.neighborhoodatlas.[facility].edu/. Last address used for [address] [place] [address]/19/2023Sex and Gender InformationValueDate RecordedSex Assigned at BirthNot on fileLegal XvtOccb6305/17/2023 9:36 AM EDT Gender IdentityNot on fileSexual OrientationNot on file Last Filed Vital Signs Vital SignReadingTime TakenCommentsBlood Kqxykosx766/6907 12:45 PM EDT Snuim2572 12:45 PM NLZIaihdmglmlr54.5 ??C (97.7 ??F)08/08/2023 11:23 AM EDTRespiratory Qxvv6634 11:23 AM EDTOxygen Veuwecuirg50%04/29/2024 10:20 AM ESTInhaled Oxygen Concentration--Eqyrtg37.2 kg (179 lb 0.2 oz)04/29/2024 10:20 AM PLRPgaycl479.6 cm (5' 6 )09/02/2024 12:45 PM EDTBody Mass Index28.89 04/29/2024 10:20 AM EST Plan of Treatment Health MaintenanceDue DateLast DoneCommentsAnxiety Oeidwokix86/13/1960Depression Yrdlkdshi45/13/1960Medicare Annual Wellness Visit06/26/2006RSV Vaccine (1 - 1- dose 75+ series)2016Advance Directive Folvtfxiln31/01/2025Covid-19 Vaccine ( season), 12/22/2022, 12/30/2021, Additional history existsInfluenza Vaccine (#1)/, 12/22/2022, 12/26/2021, Additional history existsDiabetes Mmwmzhmcm12/01/2024, 08/07/2023, 07/12/2023, Additional history existsDTaP,Tdap,Td Vaccine (3 - Td or Tdap), 08/14/2016Shingrix IicymhrSmqcxqnzk83/08/2020, 04/08/2019Pneumococcal Vaccine: 50+Rvdduuaas60/20/2023, 12/13/2015, 10/07/2014, Additional history exists Medical Devices ImplantedTypeAreaManufacturerDevice IdentifierShelf Expiration DateModel / Serial / LotSpacer Avs 4d 7mm Spinal Bone Plug - [id number] Implanted:Qty: 1 on 08/06/20[facility]: NeckSTRYKER [id number] / [id number] / Spacer Avs 4d 7mm Spinal Bone Plug - [id number] Implanted:Qty: 1 on 08/06/2023 by Rebeca Gao MD at [facility]/A: NeckSTRYKER [id number] / [id number] / Plate Aviator Titanium 28x17.4x2.5mm Bone Level 2 Automatic Lock System - [id number] Implanted:Qty: 1 on [facility]06[facility]A: NeckSTRYKER SPINE [id number] / / Screw Aviator 4mm Titanium 14mm Bone Variable Angle Self Drill Nonsterile - [id number] Implanted:Qty: 6 on 08/06/2023 [facility]/A: KiranLIDIA [id number] / / Procedures Procedure NamePriorityDate/TimeAssociated DiagnosisCommentsBASIC METABOLIC PANEL Zfjzgln6908/08/2023 6:55 AM EDT from Last 3 Months or Most Recently Relevant to Health Maintenance Results * (ABNORMAL) BASIC METABOLIC PANEL (08/08/2023 6:55 AM EDT)ComponentValueRef RangeTest MethodAnalysis TimePerformed AtPathologist AopzwanbeAsbrjtj775(H)74 - 99 mg/dL08/08/2023 8:16 AM EDTLUTHERAN LABORATORYComment: The [place] Diabetes Association (ADA) provides guidance for cutoff values for fasting glucose andrandom glucose. The ADA defines fasting as no [...] Standards of Medical Care in Diabetes 2016, [place] Diabetes Association. Diabetes Care. 2016.39(Suppl 1). XDP597 - 24 mg/dL08/08/2023 8:16 AM EDTLUTHERAN LABORATORYCreatinine0.870.73 - 1.22 mg/dL08/08/2023 8:16 AM EDTLUTHERAN YZBMGUUROMMdevvd063876 - 144 mmol/L 08/08/2023 8:16 AM EDTLUTHERAN LABORATORYPotassium4.63.7 - 5.1 mmol/L08/08/2023 8:16 AM EDTLUTHERAN ENFYSEDFIIQdbivokk66913 - 107 mmol/L08/08/2023 8:16 AM EDT [facility] FPKZZPFBTYJU02970 - 30 mmol/L08/08/2023 8:16 AM EDTLUTHERAN LABORATORY Anion Vse175 - 15 mmol/L08/08/2023 8:16 AM EDTLUTHERAN LABORATORYCalcium, Total 8.88.5 - 10.2 mg/dL08/08/2023 8:16 AM EDTLUTHERAN LABORATORYEstimated Glomerular Filtration Rate86>=60 mL/min/1.73m 08/08/2023 8:16 AM EDTLUTHERAN LABORATORYComment:Estimated Glomerular Filtration Rate (eGFR) is calculated using the 2020 CKD-EPI creatinine equation. This equation utilizes serum creatinine, sex, and age as parameters. The creatinine assay has traceable calibration to isotope dilution-mass spectrometry. Refer to KDIGO guidelines for clinical interpretation. In patients with unstable renal function, e.g. those with acute kidney injury, the eGFRmay not accurately reflect actual GFR.Specimen (Source)Anatomical Location / LateralityCollection Method / VolumeCollection TimeReceived TimeBloodBLOOD SPECIMEN / Unknown Venipuncture / Nzpzeko3408/08/2023 6:55 AM EDT08/08/2023 7:30 AM EDT Narrative Authorizing ProviderResult TypeResult StatusJayantildav Samuels MDLABORATORY Final ResultPerforming OrganizationAddressCity/State/ZIP CodePhone Number [facility] [address] [place] [address], from Last 3 Months or Most Recently Relevant to Health Maintenance Insurance Care Teams Team MemberRelationsCoalinga Regional Medical CenterpecialtyStart DateEnd Date Devi Monteiro CNP [address] [place] [address] [facility] - [facility]23 Devi Monteiro CNP [address] [place] [address] [facility]05/17/23
--- OUTSIDE RECORDS SUMMARY | 2025-01-09 09:14 | XMS_ITS | Clinical Summary ---
Author Organization [facility] tem Address [id number] [place] [address] Care Team Providers Care Automatic Silk Screen Printer Name Role Phone Nannette Long Allison STEPHENS-AIRCRAFT SERVICER Primary Care Provider [phone] Allergies Active AllergyReactionsCriticalityNoted DateComments Xgiqpbni-Mqygocgjjqz-Xitkzpdsv44/14/2019 other Ibdfjbz-Kwe-Lyo Reductase Cspifmjivw94/13/2021 MUSCLE WEAKNESS Medications MedicationSigDispense QuantityRefillsLast FilledStart DateEnd DateStatus hydroCHLOROthiazide (MICROZIDE) 12.5 mg capsule Take 1 capsule (12.5 mg total) by mouth daily.Active amLODIPine (NORVASC) 5 mg tablet Take 1 tablet (5 mg total) by mouth in the morning.Active lisinopril (PRINIVIL,ZESTRIL) 40 mg tablet Take 1 tablet (40 mg total) by mouth in the morning.Active clopidogreL (PLAVIX) 75 mg tablet Take 1 tablet (75 mg total) by mouth in the morning.07/22/2020ctive aspirin 81 mg Take 1 tablet (81 mg total) by mouth in the morning.Active vit C/E/Zn/coppr/lutein/zeaxan (PRESERVISION AREDS-2 ORAL) Take 1 tablet by mouth daily.Active Active Problems ProblemNoted DateDiagnosed JszjPknlaawirfri71/27/2025 Assessment & Plan (05/22/2024 9:00 AM EDT): Supervised walking program. He refuses structured supervised walking program but he will walk and use the treadmill at home Continue aspirin and Plavix. I recommended statin but he refused taking statin in spite of long discussion about the potential benefits of statin. Risk factors modification Cigarette qhnxig9301/31/2024 Assessment & Plan (01/31/2024 11:49 AM EST): Counseled him smoking cessation for 3 minutes. Carotid owapruhu52/28/2021 Assessment & Plan (05/22/2024 9:00 AM EDT): Continue aspirin Plavix. Recommended statin but he refused. Surveillance imaging in a year. Assessment & Plan (01/31/2024 11:48 AM EST): Carotid duplex ultrasound. Continue aspirin Plavix and statin. Preop cardiovascular exam1Essential umwccakecqoe51/01/2021Peripheral vascular htcbpxf9707/27/2020 Assessment & Plan (01/31/2024 11:48 AM EST): We will get PVR. Aspirin and Plavix. Counseled him on smoking cessation as well. 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 Immunizations ImmunizationAdministration DatesNext DueHepatitis A009/06/2019,02/17/2019 Influenza High Dose Preservative Free IM11/16/2019Influenza, Injectable, quadrivalent (PF)12/08/2015Influenza, Trivalent, Erufcvemkj44/08/2019 Pneumococcal Conjugate 13-Vzuiym1208/11/2014Pneumococcal Ggkzcgzjzmdxah47/17/2016 Tdap104/20/2018,08/14/2016Zoster Vaccine Rmovyrpezmo17/08/2020,04/08/2019 Family History Medical HistoryRelationNameCommentsHyperlipidemiaFatherProstate cancerFather HyperlipidemiaMotherNo Known ProblemsSisterRelationNameStatusCommentsFather DeceasedMotherDeceasedSisterAlive Social History Tobacco UseTypesPacks/DayYears UsedDateSmoking Tobacco: Some DaysCigarettes Smokeless Tobacco: Never Tobacco Cessation:Ready to Q uit: Yes; Counseling Given: Not Answered Comments:half pack a day Alcohol UseStandard Drinks/WeekCommentsNever0 (1 standard drink = 0.6 oz pure alcohol)AUDIT-CAnswerDate RecordedFrequency of Alcohol ConsumptionNever 12/09/2018Average Number of DrinksNot on file12/09/2018Frequency of Binge DrinkingNot on file12/09/2018ChildcareAnswerDate RecordedChildcareUnknown 08/07/2018EmploymentAnswerDate QpidfwogXqavimdrbkWrrcret50/12/2019Hunger ScreeningAnswerDate RecordedWithin the past 12 months we worried whether our food would run out before we got money to buy more.Never True05/22/2024Within the past 12 months the food we bought just didn't last and we didn't have money to get more.Never True05/22/2024Purpose - LifeAnswerDate RecordedPurpose and direction in jywrPemycbx17/11/2021ex and Gender InformationValueDate Recorded Sex Assigned at BirthNot on fileLegal UxkRsnc3010/01/2014 11:32 AM EDTGender IdentityNot on fileSexual OrientationNot on file Last Filed Vital Signs Vital SignReadingTime TakenCommentsBlood Lmyndqdb162/7003 8:44 AM EDT Rqivn559705/22/2024 8:40 AM TBQVclubefxtdo01.4 ??C (97.5 ??F)05/22/2024 8:40 AM EDTRespiratory Qrqm840704/02/2023 11:25 AM ESTOxygen Aftguypmyo51%05/22/2024 8:40 AM EDTInhaled Oxygen Concentration--Eycckq01.6 kg (180 lb)05/22/2024 8:40 AM EDT Uoxtnm068.6 cm (5' 6 )05/22/2024 8:40 AM EDTBody Mass Index29.05005/22/2024 8:40 AM EDT Plan of Treatment DateTypeDepartmentCare Team (Latest Contact Info)Jiwgruxbmtf65/15/2026 11:50 AM ESTOffice Visit [facility] [address] [place] [address] Erlinda Chopra MD [address], [address] [address] Health MaintenanceDue DateLast DoneCommentsTobacco Dkyvhurkfy29/13/1941 Depression Xyrfujdmo82/13/1954Fall Risk Aoicydycs37/13/2007RSV ( or age 60+ yrs) (1 - 1-dose 75+ series)2016COVID-19 Vaccine (2024- season) /, 12/22/2022, 12/30/2021, Additional history existsInfluenza Tegxvge18/, 12/22/2022, 12/26/2021, Additional history exists Tobacco Bajlsccap00/DTaP,Tdap and Td Vaccines (3 - Td or Tdap) , 08/14/2016Zoster (Shingles) EdjzrqvUmpblqwyq98/08/2020, 04/08/2019 Medical Devices ImplantedTypeAreaManufacturerDevice IdentifierShelf Expiration DateModel / Serial / LotPtch Photofix 0.8x8cm Rpl [id number] - [id number] Implanted:Qty: 1 on 08/23/2020 by [facility]GraftLeft: GslehgvkOACEOYTA58/19/3636WDS0.8X8 / / [id number]:LEFT CAROTID ARTERY Insurance * Guarantor: Yaron BlackburnAccount TypeRelation to PatientDate of PhoneBilling AddressPersonal/TrmfjsZadr75/13/1941 [facility] [address] [address] Care Teams Team MemberRelationshipSpecialtyStart DateEnd Date Nannette Long, MANAGEMENT EXPERT-AIRCRAFT SERVICER PCP - GeneralNaftab Ylrkcihsypnx70/14/19
--- OUTSIDE RECORDS SUMMARY | 2025-01-09 09:14 | XMS_ITS | Clinical Summary ---
Author Organization [facility] Address [address] [place] [address] Phone Care Team Providers Care Loom Fixer Name Role Phone Rojas Grullon DO Primary Care Provider Social History Tobacco UseTypesPacks/DayYears UsedDateSmoking Tobacco: Never AssessedSex and Gender InformationValueDate RecordedSex Assigned at BirthNot on fileLegal Sex Male01/21/2022 5:06 AM ESTGender IdentityNot on fileSexual OrientationNot on file Plan of Treatment Not on file Care Teams Team MemberRelationshipSpecialtyStart DateEnd Date Rojas Grullon DO [address] [place] [phone] [facility]09/23/10
[2025-01-09 09:49] LABS: Hematocrit 37.8 % (42.0-54.0); Hemoglobin 12.7 g/dL (14.0-18.0); Immature Granulocytes Abs Auto 0.05 10^3/uL (0.00-0.03); Immature Granulocytes Pct Auto 0.5 % (0.0-0.5); Lymphocytes Absolute Auto 1.6 10^3/uL (1.2-3.8); Mean Corpuscular HGB Conc 33.6 g/dL (29.9-35.2); Mean Corpuscular Hemoglobin 31.4 pg (25.9-34.0); Mean Corpuscular Volume 93.3 fL (80.0-94.0); Platelet Count 236 10^3/uL (150-450); Red Blood Count 4.05 10^6/uL (4.70-6.10); White Blood Count 9.2 10^3/uL (4.0-11.0)
[2025-01-09 10:06] LABS: Anion Gap 13.3; Blood Urea Nitrogen 30.0 mg/dL (7.0-18.0); Calcium 8.4 mg/dL (8.5-10.1); Carbon Dioxide 25.3 mmol/L (21.0-32.0); Chloride 110 mmol/L (98-107); Estimated GFR (African America >60 (>=60 mL/min/1.73m^2); Estimated GFR (Non-African Ame >60 (>=60 mL/min/1.73m^2); Glucose 95 mg/dL (74-106); Potassium 4.6 mmol/L (3.5-5.1); Sodium 144 mmol/L (136-145)
[2025-01-09 10:40] LABS: Iron 55.0 ug/dL (65.0-175.0); Percent Iron Saturation 22.5 %; Total Iron Binding Capacity 244.0 ug/dL (250.0-450.0)
[2025-01-09 11:30] LABS: Ferritin 142.0 ng/mL (26.0-388.0)
[2025-01-10 07:08] LABS: Transferrin 196 mg/dL (149-313)
== END 2025-01-09 09:10 | disposition home or self-care (01) ==
LOC: LAB 09:10
PROVIDERS: PCP Nurse Practitioner; Visit Provider Nurse Practitioner
DX: D50.9 Iron deficiency anemia, unspecified (principal); I10 Essential (primary) hypertension
CPT/HCPCS: 36415; 80048; 82728; 83540; 83550; 84466; 85025

== ENCOUNTER 2025-02-10 09:07 | Outpatient (OUT) | payer MEDICARE, SELFPAY ==
--- OUTSIDE RECORDS SUMMARY | 2023-08-23 02:30 | XMS_ITS ---
Author Organization [facility] in [place] Address [address] [place] [address] Care Team Providers Care Bilingual Office Assistant Name Role Phone 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 CNP Primary Care Provider Unavail Salo Ashby Unavailable [phone] REASON FOR VISIT F/U 1 YEAR COPD Encounters Encounter Location Date Provider Diagnosis Pulmonary Medicine [address] [place] [address] 08/23/2023 Salo England Plan Of Treatment No Information Progress Notes * Yaron JACKSON LDOB:[birth year] (84 yo M)Acc No.[id number]:08/23/2023 UNLOCKED PROGRESS NOTE Follow Up Patient: Yaron SAEED :?Salo England DODOB:1940???Age:83 Y ???Sex:MaleDate:4Phone:[phone]:[address] [place], [place] [id number]: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 CNP Subjective: * Chief Complaints: * 1 . F/U 1 YEAR COPD. * Medical History: Objective: * Vitals: Assessment: Plan: * Treatment: * * Electronic signature of Salo England DO on 02/10/2025 at 09:10 AM ESTSign off status: PendingVisit Status:?R/S (Rescheduled) * Provider: Holli England DO Date: 0 08/23/2023 Generated for Printing/Faxing/eTransmitting on:?02/10/2025 09:10 AM EST
--- NOTE | 2025-02-10 09:10 | CT_ITS ---
The [address] [address] Patient Name: SUNNI JACKSON MRN: [id number] date: 1940 Sex: M Assigned Patient Location: CT Current Patient Location: CT Accession/Order Number: [id number] Exam Date: 02/10/2025 09:15 Report Date: 02/10/2025 10:10 At the request of: KELLY BAIRD MD Procedure: CT chest w con CT CHEST WITH INTRAVENOUS CONTRAST: CLINICAL HISTORY: Tobacco Use, Dyspnea, Chronic Obstructive Pulmonary Disease, anemia COMPARISON: 08/07/2022 TECHNIQUE: Spiral images were obtained through the chest following intravenous administration of 100 mL of Omnipaque 300. Images were reviewed using both narrow and wide window settings. This CT exam was performed using one or more following dose reduction techniques: Automated exposure control, adjustment of the mA and/or kV according to patient size, or use of iterative reconstruction technique. FINDINGS: The heart is not enlarged. There is no pericardial effusion. Coronary disease is seen. No aortic aneurysm or dissection is seen. There is atherosclerotic plaque and some mural thrombus at the aorta. Plaque is also seen at the proximal great vessels. There are similar tiny mediastinal lymph nodes. Hypodense thyroid nodularity is again noted. There is minor gynecomastia. The bony structures are intact. There is slight dextroscoliotic curvature and endplate spurring at the spine. There is obstructive lung disease with airspace lucencies and subpleural blebs. There is mild atelectasis and/or scarring at the lung bases. There is no developing consolidation, pleural effusion or pneumothorax. No soft tissue nodularity is seen. Limited cuts through the upper abdomen show no contributory abnormality. CT/CT chest w con IMPRESSION: OBSTRUCTIVE LUNG DISEASE WITH ATELECTASIS AND/OR SCARRING. NO ACUTE FINDINGS. Impression dictated by: Sharla Robertson M.D. 02/10/2025 10:10 AM Dictation Location[facility] Electronically authenticated by: [id number] Y Date: 02/10/2025 10:10
--- OUTSIDE RECORDS SUMMARY | 2025-02-10 09:11 | XMS_ITS | Patient Health Record ---
Author Organization [facility] [place] Address [address] [place] [address] Care Team Providers Care Retail And Promotions Coordinator Name Role Phone Jessica Monteiro CNPa Primary Care Provider Unavail able Allergies Allergen (clinical drug ingredient) Drug/Non Drug Allergy documented on EMR Reaction Allergy Type Onset Date Status amoxicillin / clavulanate Augmentin nausea and vomiting D rug Allergy ActiveNeosporinswellingDrug AllergyActivemontelukastSingulairfacial swellingDrug AllergyActiveamoxicillinAmoxicillinnauseaDrug AllergyActiveSubstance with 8-hkxbupq-6-methylglutaryl-coenzyme A reductase inhibitor mechanism of action (substance)Statinsmyalgia & weaknessDrug AllergyActive Reason For Referral No Information Medications Medication SIG (Take, Route, Frequency, Duration) Notes Start Date End Date Status PreserVision AREDS 2 - as directed Orally ActiveLisinopril 40 MG1 tablet Orally Once a dayActiveAspirin 81 MG1 tablet Orally Once a dayActiveamLODIPine Besylate 5 MG1 tablet Orally Once a dayActive Albuterol Sulfate HFA 108 (90 Base) MCG/ACT2 puffs as needed Inhalation every 4 hrsActiveBenzonatate 200 MG1 capsule as needed for cough Orally Three times a day; Duration: 30 days09/11/2023ctive Immunizations Vaccine Route Administration Date Status [facility]me [facility] Pfizer Syringe Pre -Filled 30 mcg/0.3 mL Unknown 12/22/2022 Administered Flu, Fluad (98640) 65 yrs+, single-dose syringe (2206-5678)Ldtdami6612/22/2022 AdministeredFlu, Fluzone High-Dose (24362) 65 yrs+ (5942-0743)Wgmejrk3512/26/2021 AdministeredPneumococcal (Pneumovax 23)Ybsdghg1312/13/2015AdministeredPneumococcal (Prevnar 13)Zqdzanr1108/11/2014dministeredPneumococcal (Prevnar 20)Unknown 8576DitaaksefwxdZLDC-RXY-4 (COVID 19) bivalent 30 mcg/0.3 ml doseUnknown 12/30/2021dministeredTdap (Boostrix)Nkjsbty9302/17/2019AdministeredZOSTER (SHINGLES) VACCINE (HZV)Mgserqd3407/04/2019Administered Social History Tobacco Use: Social History Observation Description Date Details (start date - stop date) Current Smoker NA - NA Tobacco Use/Smoking Question Answer Notes Patient is a current smoker How often do you smoke cigarettes?every dayHow many cigarettes a day do you smoke?6-10Additional Findings: Tobacco UserModerate cigarette smoker (10-19 cigs/day)Tobacco Control (Standard) Question Answer Notes Tobacco use: Current every day smoker Additional Findings: Tobacco userLight cigarette smoker (1-9 cigs/day) Problems Problem Type SNOMED Code ICD Code Onset Dates Problem Status W/U Status Risk Notes Problem COPD - Chronic obstr uctive pulmonary disease (37129111) COPD (chronic obstructive pulmonary disease) (J44.9) ActiveconfirmedProblemMental disorder caused by drug (443605121)Cigarette nicotine dependence with nicotine-induced disorder (F17.219)Activeconfirmed ProblemBronchiectasis (50186714)Bronchiectasis (J47.9)ActiveconfirmedProblem Emphysema (20016088)Emphysema (J43.9)ActiveconfirmedProblemBullous emphysema (307835337)Bullous emphysema (J43.9)ActiveconfirmedProblemRibonucleoprotein antibody detected (finding) (126652669)Anti-TOOL MAINTENANCE TECHNICIAN antibodies present (R76.8)Active confirmedElevated secondary to ageProblemLaryngopharyngeal reflux (394053231) LPRD (laryngopharyngeal reflux disease) (K21.9)Activeconfirmed Plan Of Treatment No Information Insurance Providers Payer Name Payer Address Payer Phone Subscriber Number Group Number Insured Name Patient Relationship to Insured Coverage Start Date Coverage End Date [place] [address] [place] [address] [id number] [place] BritKyleelf - patient is the [id number] 2006 Medical (General) History Medical History History ICD Code Bullous emphysema J43.9 Bronchiectasis J47.9 Cervical spinal stenosis M48.02 Dyslipidemia E78.5 Essential Hypertension I10 Allergic rhinitis J30.9 Right thyroid nodule E04.1 Peripheral vascular disease I73.9 LPRD (laryngopharyngeal reflux disease) K21.9 Eustachian tube dysfunction H69.80 Colon polyp K63.5 Anti-TOOL MAINTENANCE TECHNICIAN antibodies present R76.8 Cigarette nicotine dependence with nicot ine-induced disorder F17.219 Surgical History Surgery Date(Month/Year) Neck Surgery 08/06/2023 carotid endarterectomy 08/23/2020 Ear Surgery tonsillectomy and adenoidectomyHospitalization History Reason Date(Month/Year) Neck Surgery-[facility] 08/06/2023
--- OUTSIDE RECORDS SUMMARY | 2025-02-10 09:11 | XMS_ITS | Clinical Summary ---
Author Organization [facility] Address [address] [place] [address] Phone Care Team Providers Care Newspaper Editor Name Role Phone Rojas Grullon DO Primary Care Provider Social History Tobacco UseTypesPacks/DayYears UsedDateSmoking Tobacco: Never AssessedSex and Gender InformationValueDate RecordedSex Assigned at BirthNot on fileLegal Sex Male01/21/2022 5:06 AM ESTGender IdentityNot on fileSexual OrientationNot on file Plan of Treatment Not on file Care Teams Team MemberRelationshipSpecialtyStart DateEnd Date Rojas Grullon DO [address] [place] [address] [facility]09/23/10
--- OUTSIDE RECORDS SUMMARY | 2025-02-10 09:11 | XMS_ITS | Clinical Summary ---
Author Organization [facility] Address [address] [place] [address] Care Team Providers Care Safety Analyst Name Role Phone Devi Monteiro DIRECTOR CORRECTIONAL AGENCY Unavailable [phone] Jovany Mcdaniel DO Unavailable Devi Monteiro DIRECTOR CORRECTIONAL AGENCY Unavailable [phone] Víctor Chadwick MD Primary Care Provider Devi Monteiro NP Unavailable [phone] Allergies Active AllergyReactionsCriticalityNoted DateCommentsAmoxicillinNausea Only 10/31/2022moxicillin-Pot ClavulanateGI /05/2023acitracin 09/04/2022 Other Reaction(s): Unknown Bacitracin-Polymyxin LYiborsjw17/05/2023enzalkonium AvdgmshlKuyfHji48/16/2024 Blisters/scarring on skin. Ctsxrjvdnzz34/05/2023 Other Reaction(s): facial swelling Smejuarh15/10/2023 Other Reaction(s): Unknown Other12/09/2018 other Polymyxin B009/04/2022 Other Reaction(s): Unknown Etqrffv2409/07/2020 MUSCLE WEAKNESS Medications MedicationSigDispense QuantityRefillsLast FilledStart DateEnd [...] Do not crush or chew.. 30 capsule 4Active lisinopril 40 MG tablet Indications:Primary hypertensionTake 1 tablet (40 mg) by mouth Daily 90 tablet 5Active amLODIPine (Norvasc) 10 MG tablet Indications:Primary hypertensionTake 1 tablet (10 mg) by mouth Daily 90 tablet 5Active pregabalin (Lyrica) 50 MG capsule Take 50 mg by mouth in the morning and 50 mg in the evening.5Active Active Problems ProblemNoted DateDiagnosed DateOther hnlxpjv4906/24/2024igarette nicotine dependence without rltwvhszndur52/24/2025 Assessment & Plan (06/19/2024 6:34 AM EDT): The patient has been advised of the risks of continued smoking: stroke, CA, all forms of cancer, lung disease, and . Options for quitting smoking include: cold turkey, hypnosis, acupuncture, nicotine replacement meds(gum, lozenges, and patches), Buproprion, and Varenicline. At this time pt is encouraged to evaluate their goals for wanting to quit smoking, and reach out toprovider when ready to start this process Upset odzwvze7806/19/2024 Assessment & Plan (06/19/2024 10:53 AM EDT): No fever or urinary c/o No change in bowel habits Check labs Recommend taking the PPI as directed has a fu appt in 3 weeks he will check in with me at that time Qmnkperwmhpr40/27/2025Statin wjkllutfpbj77/22/2025 Assessment & Plan (03/19/2024 12:06 PM EST): [...] to trial an IV iron infusion Dysphagia, iyqszwbxrwr12/20/2024 Assessment & Plan (03/19/2024 7:02 AM EST): Has seen ENT, is doing better Assessment & Plan (12/18/2023 11:31 AM EDT): Will refer to ENT Primary bzojyumnhdrl26/01/2024 Assessment & Plan (06/19/2024 6:33 AM EDT): [...] in 4 weeks for recheck Cervical cord kziylxeddosp28/25/2024 Assessment & Plan (06/21/2023 9:58 AM EDT): Surgery planned for 08/06/23 History of crpvqypieqcba75/18/2024 Overview (05/14/2023): Hx R cholesteatoma Allergic imgxiyfx84/18/2024symptomatic bilateral carotid artery stenosis 05/14/2023 Assessment & Plan (03/19/2024 7:06 AM EST): Current meds: none Follows with Dr Barclay, carotids done in 02/18. Right external 57%, internals <50% Assessment & Plan (12/18/2023 11:31 AM EDT): Cont with vascular Assessment & Plan (06/21/2023 9:59 AM EDT): Continue with vasular Salnlpaqepvm70/13/2024hronic szjkneim37/12/2024 Assessment & Plan (05/14/2023 5:45 PM EDT): Will trial OTC cetirizine Had low dose CT chest in the last 12 months Mixed wktazkouiphjpq27/06/2024Thyroid iynhdy5704/03/2023 Assessment & Plan (03/19/2024 12:04 PM EST): Will check labs Screening for prostate wodisd6404/03/2023 Overview (06/20/2024): 06/20/24: 0.30 BMI 29.0-29.9,adult4COPD lsabzfzvbiqt20/06/2024 Assessment & Plan (02/25/2024 12:56 PM EST): [...] this time Capmist DM: #8 pills, lot: [id number], exp 05/21 Assessment & Plan (04/18/2023 4:36 PM EST): Will provide sample of Capmist samples #10 pills Fu in 3 weeks Degenerative disc disease, bdyivkju60/17/2023Spinal stenosis at L4-L5 level 12/12/2022 Assessment & Plan (05/14/2023 5:36 PM EDT): MRI lumbar spine: DDD all levels, L3-L4 disc desiccation, left foraminal disc herniation, L5-S1: mod diffuse disc bulge See notes from Cervical spinal stenosis POC is the same Trochanteric bursitis of both hips11/28/2022Laryngopharyngeal spyxcv4110/31/2022 Anti-ASSISTED LIVING EXECUTIVE DIRECTOR antibodies jxaofnp8610/31/2022hronic obstructive pulmonary disease with vdengviln78/05/2023 Overview (05/14/2023): PFT's 09/21/22: FEV1 75%, FVC [...] PM EDT): #2 samples of breztri: lot [id number], exp 11/21 Assessment & Plan (06/21/2023 9:59 AM EDT): Stable at this time Assessment & Plan (05/14/2023 5:44 PM EDT): Continue breztri, gave him a spacer to trial Fu in 4 weeks Numbness and akciruqk76/08/0209Iygpiclg76/08/2023Decreased hearing of both ears 09/05/2022Eustachian tube pykiufgwpgk51/11/2023Cervical spinal stenosis 09/05/2022 Assessment & Plan (05/14/2023 [...] Problems ProblemNoted DateDiagnosed DateResolved DateAcute non-recurrent frontal edjsjbpvk72/ Assessment & Plan (02/25/2024 12:57 PM EST): Will treat for suspected sinus infection Discussed differentials: RSV, flu, COVID, or viral URI, offered testing, however would be outside the window of treatment with antivirals, does not want tested Will fu if not better Acute non-recurrent maxillary iepfqulky47igarette smoker / Assessment & Plan (06/19/2024 6:34 AM EDT): The patient has been advised of the risks of continued smoking: stroke, CA, all forms of cancer, lung disease, and [...] of the risks of continued smoking: stroke, CA, all forms of cancer, lung disease, and . Options for quitting smoking include: cold turkey, hypnosis, acupuncture, nicotine replacement meds(gum, lozenges, and patches), Buproprion, and Varenicline. At this time pt is encouraged to evaluate their goals for wanting to quit smoking, and reach out toprovider when ready to start this process Zdkhvfzttn87/22/202411/S/P spinal lckkysz05Tobacco user Assessment & Plan (02/25/2024 12:57 PM EST): The patient has been advised of the risks of continued smoking: stroke, CA, all forms of cancer, lung disease, and [...] of the risks of continued smoking: stroke, CA, all forms of cancer, lung disease, and [...] of the risks of continued smoking: stroke, CA, all forms of cancer, lung disease, and . Options for quitting smoking include: cold turkey, hypnosis, acupuncture, nicotine replacement meds(gum, lozenges, and patches), Buproprion, and Varenicline. 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 Continue with antiplatelets therapy and statins. Zjbirnbnfpye00Essential hihwzvcqigal45/01/202109/06/2022 Peripheral vascular ixrqhrm68reop cardiovascular exam /06/2022Shortness of Encounters DateTypeDepartmentCare AmqtPxmrpayrqok54/07/2025 3:45 PM EDTOffice Visit [facility] [address] [place] [address] Jovany Mcdaniel DO Tobacco abuse (Primary Dx); History of mastoidectomy; Mixed hearing loss, xqqehpmgc08/07/2025amboo flowsheet [facility] [address] [place] [phone] Jovany Mcdaniel DO 12/02/2024Travelfrom Last 3 Months Immunizations ImmunizationAdministration DatesNext DueHep A, Adult09/06/2019,02/17/2019 Influenza, High Dose Seasonal, Preservative Free12/10/2023,11/16/2019Influenza, High-dose Seasonal, Quadrivalent, Preservative Free12/26/2021Influenza, Seasonal, Quadrivalent, Trwlcuutcr48/27/2023,12/01/2020Influenza, injectable, quadrivalent, preservative free12/21/2020,12/08/2015,12/09/2014Influenza, trivalent, cefutvrfau99/08/2019Pneumococcal Conjugate PCV 1308, 08/11/2014Pneumococcal Conjugate PCV 3Pneumococcal Polysaccharide TGMU49172473Fqid39/23/2019,08/14/2016Zoster, Xmnmzmjuwdr66/08/2020, 04/08/2019 Family History Medical HistoryRelationNameCommentsPancreatic cancerBrother 1brain [...] 3-4 cups per dayPHQ-2AnswerDate RecordedPatient Health Questionnaire-2 Qugbo020Sex and Gender InformationValueDate RecordedSex Assigned at IlikxWmae89/05/2023 9:04 AM EDTLegal MlfOtdj2705/10/2022 7:06 PM EDT Gender MgnneibuZbja68/05/2023 9:04 AM EDTSexual OrientationNot on file Last Filed Vital Signs Vital SignReadingTime TakenCommentsBlood Oxiuchqh702/7604 9:52 AM EDT Pbpxz528306/19/2024 9:52 AM PRPGoutzsgppab31.1 ??C (98.7 ??F)06/19/2024 9:52 AM EDTRespiratory Nawt772406/19/2024 9:52 AM EDTOxygen Muzqnpwlts64%06/19/2024 9:52 AM EDTInhaled Oxygen Concentration--Dskdcx17 kg (183 lb)12/02/2024 3:29 PM EDT Yjdulv478.3 cm (5' 6.25 )12/02/2024 3:29 PM EDTBody Mass Index29.311 3:29 PM EDT Plan of Treatment DateTypeDepartmentCare Team (Latest Contact Info)Slzfanukdkx57/07/2026 3:45 PM EDTOffice Visit [facility] [address] [address] [place] [address] Jovany Mcdaniel, DO [address] [place] [address] Health MaintenanceDue DateLast DoneCommentsCOVID-19 Vaccine ( season) 51, 12/22/2022, 12/30/2021, Additional history existsInfluenza Vaccine (#1)51, 12/22/2022, 12/26/2021, Additional history existsPneumococcal Vaccine: 65+ BgdjqKurzijrnt54/20/2023, 12/13/2015, 10/07/2014, Additional history exists Insurance Care Teams Team MemberRelationshipSpecialtyStart DateEnd Date Devi Monteiro NP [address] [place] [phone] PCP - ACO Reach04/04/24 Víctor Chadwick MD [address] [place] [address] PCP - GeneralFamily Medicine11/20/24 Devi Monteiro NP Nurse PractitionerFamily Medicine02/26/22 Jovany Mcdaniel DO [address] [address] Otolaryngology11/08/23 Devi Monteiro NP [facility]11/20/24
--- OUTSIDE RECORDS SUMMARY | 2025-02-10 09:11 | XMS_ITS | Clinical Summary ---
Author Organization [facility] Address [address] [place], [place] [id number] Care Team Providers Care Nurse Practitioner Per Diem Name Role Phone Devi Monteiro COUNTER TENDER Unavailable [phone] Devi Monteiro COUNTER TENDER Primary Care Provider [phone] Allergies Active AllergyReactionsCriticalityNoted DateCommentsBenzalkonium ChlorideRash 07/12/2023 Blisters/scarring on skin. Medications MedicationSigDispense QuantityRefillsLast FilledStart DateEnd DateStatus albuterol HFA (PROVENTIL HFA, VENTOLIN HFA) 90 mcg/actuation inhaler inhale 2 puffs by mouth and INTO THE LUNGS every 6 hours if needed for wheezing 4Active aspirin, enteric coated (ASPIRIN, ENTERIC COATED) 81 mg EC tablet Take 81 mg by mouth.Active rkujuomhce-neorayny-xwbahliihk (BREZTRI AEROSPHERE) 160-9-4.8 mcg/actuation HFA aerosol inhaler Inhale 2 Puffs as instructed.Active lisinopril (ZESTRIL) 40 mg tablet Take 40 mg by mouth.10/10/2018Active vit A,C,Q-Hdkm-Apoxxf (PRESERVISION AREDS) 2,148 mcg-113 mg-45 mg-17.4mg tab Take 1 tablet by mouth daily with breakfast.Active amLODIPine (NORVASC) 10 mg tablet Take 10 mg by mouth once daily.Active pregabalin (LYRICA) 50 mg capsule Indications:Spinal stenosis of cervical regionTake 1 capsule by mouth two times a day for 30 days. 60 capsule 5Active Active Problems ProblemNoted DateDiagnosed DateS/P spinal elajvga42/10/2024Cervical cord coqbpiqrgcgz05/23/0559Qeobge69/18/2024 Assessment & Plan (07/12/2023 10:30 AM EDT): [...] of surgery Per note on 06/21/2023 Carotid yvwkeien03/28/2021 Assessment & Plan (07/12/2023 10:34 AM EDT): [...] with antiplatelets therapy and statins. Essential (primary) jhiiappeyvdx20/01/2021 Assessment & Plan (07/12/2023 10:32 AM EDT): Assessment: Stable on medication Today BP: 156/73 Amlodipine was recently increased by PCP To take medication morning of surgery Peripheral vascular ynlrcwo2807/27/2020 Assessment & Plan (07/12/2023 10:34 AM EDT): [...] Social History Tobacco UseTypesPacks/DayYears UsedDateSmoking Tobacco: Every DayCigarettes0.567 Started: 1958Smokeless Tobacco: NeverAlcohol UseStandard Drinks/WeekCommentsNot Currently0 (1 standard drink = 0.6 oz pure alcohol)Area Deprivation IndexAnswer Date RecordedNational Score (1-100), lower number is lower xclx901606/19/2023State Score (1-10), lower number is lower rtiu069ata from: https://www.neighborhoodatlas.[facility].edu/. Last address used for [address] [place] [address]/19/2023Sex and Gender InformationValueDate RecordedSex Assigned at BirthNot on fileLegal FfrHyon3405/17/2023 9:36 AM EDT Gender IdentityNot on fileSexual OrientationNot on file Last Filed Vital Signs Vital SignReadingTime TakenCommentsBlood Pjvsiune715/6907 12:45 PM EDT Liozo8792 12:45 PM GTKOvceevixxax64.5 ??C (97.7 ??F)08/08/2023 11:23 AM EDTRespiratory Bxyd0014 11:23 AM EDTOxygen Wxpmvbwcwx95%04/29/2024 10:20 AM ESTInhaled Oxygen Concentration--Gbfcos85.2 kg (179 lb 0.2 oz)04/29/2024 10:20 AM PLLQhvzck308.6 cm (5' 6 )09/02/2024 12:45 PM EDTBody Mass Index28.89 04/29/2024 10:20 AM EST Plan of Treatment Health MaintenanceDue DateLast DoneCommentsAnxiety Ynobomktz48/13/1960Depression Vnkybqlal25/13/1960Medicare Annual Wellness Visit06/26/2006RSV Vaccine (1 - 1- dose 75+ series)2016Advance Directive Tmyqvbcpyv58/01/2025Covid-19 Vaccine ( season)/, 12/22/2022, 12/30/2021, Additional history existsInfluenza Vaccine (#1)/, 12/22/2022, 12/26/2021, Additional history existsDiabetes Cincegtcb60/01/2024, 08/07/2023, 07/12/2023, Additional history existsDTaP,Tdap,Td Vaccine (3 - Td or Tdap), 08/14/2016Shingrix GauuybuFvcynlonu03/08/2020, 04/08/2019Pneumococcal Vaccine: 50+Aobdswaap53/20/2023, 12/13/2015, 10/07/2014, Additional history exists Medical Devices ImplantedTypeAreaManufacturerDevice IdentifierShelf Expiration DateModel / Serial / LotSpacer Avs 4d 7mm Spinal Bone Plug - [id number] Implanted:Qty: 1 on 08/06/2023 by Rebeca Gao MD at [facility]/A: NeckSTRYKER [id number] / [id number] / Spacer Avs 4d 7mm Spinal Bone Plug - [id number] Implanted:Qty: 1 on 08/06/2023 by Rebeca Gao MD at [facility]/A: NeckSTRYKER [id number] / [id number] / Plate Aviator Titanium 28x17.4x2.5mm Bone Level 2 Automatic Lock System - [id number] Implanted:Qty: 1 on 08/06/2023 at [facility]/A: NeckSTRYKER SPINE [id number] / / Screw Aviator 4mm Titanium 14mm Bone Variable Angle Self Drill Nonsterile - [id number] Implanted:Qty: 6 on 08/06/2023 [facility]/A: JensenZAINABSHASHANK [id number] / / Procedures Procedure NamePriorityDate/TimeAssociated DiagnosisCommentsBASIC METABOLIC PANEL Tfetubw2108/08/2023 6:55 AM EDT from Last 3 Months or Most Recently Relevant to Health Maintenance Results * (ABNORMAL) BASIC METABOLIC PANEL (08/08/2023 6:55 AM EDT)ComponentValueRef RangeTest MethodAnalysis TimePerformed AtPathologist RnrsknbqxVcahibb202(H)74 - 99 mg/dL08/08/2023 8:16 AM EDTLUTHERAN LABORATORYComment: The [place] Diabetes Association (ADA) provides guidance for cutoff [...] Standards of Medical Care in Diabetes 2016, [place] Diabetes Association. Diabetes Care. 2016.39(Suppl 1). ISN038 - 24 mg/dL08/08/2023 8:16 AM EDTLUTHERAN LABORATORYCreatinine0.870.73 - 1.22 mg/dL08/08/2023 8:16 AM EDTLUTHERAN CRFKYSTXXRAamhpk705320 - 144 mmol/L 08/08/2023 8:16 AM EDTLUTHERAN LABORATORYPotassium4.63.7 - 5.1 mmol/L08/08/2023 8:16 AM EDTLUTHERAN GQGRFYCWOLNjngwjci56181 - 107 mmol/L08/08/2023 8:16 AM EDT HINDU LXGPBBIIUYHP42165 - 30 mmol/L08/08/2023 8:16 AM EDTLUTHERAN LABORATORY Anion Win217 - 15 mmol/L08/08/2023 8:16 AM EDTLUTHERAN LABORATORYCalcium, [...] TimeReceived TimeBloodBLOOD SPECIMEN / Unknown Venipuncture / Iuxcyuu2108/08/2023 6:55 AM EDT08/08/2023 7:30 AM EDT Narrative Authorizing ProviderResult TypeResult StatusJayansanjay Samuels MDLABORATORY Final ResultPerforming OrganizationAddressCity/State/[facility] CodePhone Number HINDU [facility] [address] [place] [address], from Last 3 Months or Most Recently Relevant to Health Maintenance Insurance Care Teams Team MemberPark Nicollet Methodist Hospitalart DateEnd Date Devi Monteiro CNP [address] [place] [address] [facility] - [facility] Devi Monteiro CNP [address] [place] [address] [facility]05/17/23
--- OUTSIDE RECORDS SUMMARY | 2025-02-10 09:11 | XMS_ITS | Clinical Summary ---
Author Organization [employer] [facility] tem Address [id number] [place] [address] Care Team Providers Care Geological Aide Name Role Phone Nannette Long Allison STEPHENS-SLAB TRIPPER Primary Care Provider Allergies Active AllergyReactionsCriticalityNoted DateComments Kzuyosqp-Itkykxcmatf-Jpapbreai98/14/2019 other Rzklqgj-Uhq-Fnk Reductase Ebuirifdsa88/13/2021 MUSCLE WEAKNESS Medications MedicationSigDispense QuantityRefillsLast FilledStart DateEnd [...] by mouth daily.Active Active Problems ProblemNoted DateDiagnosed UkgxVkcvpazqonki58/27/2025 Assessment & Plan (05/22/2024 9:00 AM EDT): Supervised walking program. He refuses structured supervised walking program but he will walk and use the treadmill at home Continue aspirin and Plavix. I recommended statin but he refused taking statin in spite of long discussion about the potential benefits of statin. Risk factors modification Cigarette lpvjfm2001/31/2024 Assessment & Plan (01/31/2024 11:49 AM EST): Counseled him smoking cessation for 3 minutes. Carotid cezbcgys12/28/2021 Assessment & Plan (05/22/2024 9:00 AM EDT): Continue aspirin Plavix. Recommended statin but he refused. Surveillance imaging in a year. Assessment & Plan (01/31/2024 11:48 AM EST): Carotid duplex ultrasound. Continue aspirin Plavix and statin. Preop cardiovascular exam1Essential iqiaphmkuuxa65/01/2021Peripheral vascular epyhyxa9207/27/2020 Assessment & Plan (01/31/2024 11:48 AM EST): We will get PVR. Aspirin and Plavix. Counseled him on smoking cessation as well. 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/09/2018 Immunizations ImmunizationAdministration DatesNext DueHepatitis A009/06/2019,02/17/2019 Influenza High Dose Preservative Free IM11/16/2019Influenza, Injectable, quadrivalent (PF)12/08/2015Influenza, Trivalent, Dkxwwkgoam82/08/2019 Pneumococcal Conjugate 13-Qtpdqh2508/11/2014Pneumococcal Igyaszxbzdazvu21/17/2016 Tdap104/20/2018,08/14/2016Zoster Vaccine Rxckpggmcpx26/08/2020,04/08/2019 Family History Medical HistoryRelationNameCommentsHyperlipidemiaFatherProstate cancerFather HyperlipidemiaMotherNo Known ProblemsSisterRelationNameStatusCommentsFather DeceasedMotherDeceasedSisterAlive Social History Tobacco UseTypesPacks/DayYears UsedDateSmoking Tobacco: Some DaysCigarettes Smokeless Tobacco: Never Tobacco Cessation:Ready to Q uit: Yes; Counseling Given: Not Answered Comments:half pack a day Alcohol UseStandard Drinks/WeekCommentsNever0 (1 standard drink = 0.6 oz pure alcohol)AUDIT-CAnswerDate RecordedFrequency of Alcohol ConsumptionNever 12/09/2018Average Number of DrinksNot on file12/09/2018Frequency of Binge DrinkingNot on file12/09/2018ChildcareAnswerDate RecordedChildcareUnknown 08/07/2018EmploymentAnswerDate IrujmsvfVlxheepotiSvbxelk50/12/2019Hunger ScreeningAnswerDate RecordedWithin the past 12 months we worried whether our food would run out before we got money to buy more.Never True05/22/2024Within the past 12 months the food we bought just didn't last and we didn't have money to get more.Never True05/22/2024Purpose - LifeAnswerDate RecordedPurpose and direction in uqrsBnaacmr67/11/2021ex and Gender InformationValueDate Recorded Sex Assigned at BirthNot on fileLegal SsgDell5010/01/2014 11:32 AM EDTGender IdentityNot on fileSexual OrientationNot on file Last Filed Vital Signs Vital SignReadingTime TakenCommentsBlood Caggalvr923/7003 8:44 AM EDT Ajyaj640205/22/2024 8:40 AM ZCBCutpasmmztl30.4 ??C (97.5 ??F)05/22/2024 8:40 AM EDTRespiratory Hkra395304/02/2023 11:25 AM ESTOxygen Ukxhqqntlw42%05/22/2024 8:40 AM EDTInhaled Oxygen Concentration--Zktemi94.6 kg (180 lb)05/22/2024 8:40 AM EDT Ycladb633.6 cm (5' 6 )05/22/2024 8:40 AM EDTBody Mass Index29.05005/22/2024 8:40 AM EDT Plan of Treatment DateTypeDepartmentCare Team (Latest Contact Info)Guauxbwjqwi39/15/2026 11:50 AM ESTOffice Visit [facility] [address] [place] [address] Erlinda Chopra MD [address], [address] [address] Health MaintenanceDue DateLast DoneCommentsTobacco Otpfsxlqdj70/13/1941 Depression Eiqjxwmra45/13/1954Fall Risk Qagvmjzon43/13/2007RSV ( or age 60+ yrs) (1 - 1-dose 75+ series)2016COVID-19 Vaccine (2024- season) /, 12/22/2022, 12/30/2021, Additional history existsInfluenza Ohnfyhg37/, 12/22/2022, 12/26/2021, Additional history exists Tobacco Zfzgyterw14/DTaP,Tdap and Td Vaccines (3 - Td or Tdap) , 08/14/2016Zoster (Shingles) DbxrurxGkuqmqyne60/08/2020, 04/08/2019 Medical Devices ImplantedTypeAreaManufacturerDevice IdentifierShelf Expiration DateModel / Serial / LotPtch Photofix 0.8x8cm Rpl [id number] - [id number] Implanted:Qty: 1 on 08/23/2020 [facility]: FkcdrhvgXVFZFZGS92/19/[id number] / / [id number]:LEFT CAROTID ARTERY Insurance * Guarantor: Yaron BlackburnAccount TypeRelation to PatientDate of PhoneBilling AddressPersonal/HrjalyWrem42/13/1941 [facility] [address] [address] Care Teams Team MemberRelationshipSpecialtyStart DateEnd Date Nannette Long, GENERAL MATCHER-SLAB TRIPPER PCP - GeneralNaftab Ojodwdgdljhw18/14/19
== END 2025-02-10 09:08 | disposition home or self-care (01) ==
LOC: CT 09:07
PROVIDERS: PCP Nurse Practitioner; Visit Provider Internal Medicine Hematology & Oncology
DX: D64.9 Anemia, unspecified (principal); R06.00 Dyspnea, unspecified; Z72.0 Tobacco use; J44.9 Chronic obstructive pulmonary disease, unspecified
CPT/HCPCS: 71260; Q9967

== ENCOUNTER 2025-02-24 08:14 | Outpatient (RCR) | payer MEDICARE, SELFPAY ==
[2025-01-28 11:55] LABS: Hematocrit 39.3 % (42.0-54.0); Hemoglobin 13.1 g/dL (14.0-18.0); Immature Granulocytes Abs Auto 0.02 10^3/uL (0.00-0.03); Immature Granulocytes Pct Auto 0.2 % (0.0-0.5); Lymphocytes Absolute Auto 1.5 10^3/uL (1.2-3.8); Mean Corpuscular HGB Conc 33.3 g/dL (29.9-35.2); Mean Corpuscular Hemoglobin 30.8 pg (25.9-34.0); Mean Corpuscular Volume 92.5 fL (80.0-94.0); Platelet Count 253 10^3/uL (150-450); Red Blood Count 4.25 10^6/uL (4.70-6.10); Reticulocyte Pct Auto 1.05 % (0.60-3.10); White Blood Count 9.1 10^3/uL (4.0-11.0)
[2025-01-28 12:20] LABS: Alanine Aminotransferase 23 U/L (16-63); Albumin Globulin Ratio 0.9; Albumin Level 3.3 g/dL (3.4-5.0); Alkaline Phosphatase 93 U/L (46-116); Anion Gap 10.5; Aspartate Amino Transferase 12 U/L (15-37); Blood Urea Nitrogen 21.0 mg/dL (7.0-18.0); Calcium 8.7 mg/dL (8.5-10.1); Carbon Dioxide 27.6 mmol/L (21.0-32.0); Chloride 105 mmol/L (98-107); Estimated GFR (African America >60 (>=60 mL/min/1.73m^2); Estimated GFR (Non-African Ame >60 (>=60 mL/min/1.73m^2); Globulin 3.5 g/dL; Glucose 109 mg/dL (74-106); Potassium 4.1 mmol/L (3.5-5.1); Sodium 139 mmol/L (136-145); Total Protein 6.8 g/dL (6.4-8.2)
[2025-01-28 12:48] LABS: Iron 83.0 ug/dL (65.0-175.0); Percent Iron Saturation 34.2 %; Total Iron Binding Capacity 243.0 ug/dL (250.0-450.0)
[2025-01-28 13:03] LABS: Ferritin 124.0 ng/mL (26.0-388.0); Folate 24.30 ng/mL (8.60-58.90)
[2025-01-29 04:08] LABS: Vitamin B12 511 pg/mL (232-1245)
[2025-01-30 15:08] LABS: Albumin 3.3 g/dL (2.9-4.4); Alpha-1-Globulin 0.3 g/dL (0.0-0.4); Alpha-2-Globulin 0.9 g/dL (0.4-1.0); Free Kappa Lt Chains,S 28.7 mg/L (3.3-19.4); Free Lambda Lt Chains,S 23.5 mg/L (5.7-26.3); Gamma Globulin 0.6 g/dL (0.4-1.8); Immunofixation Result, Serum Comment: (.); Immunoglobulin A, Qn, Serum 336 mg/dL (61-437); Kappa/Lambda Ratio,S 1.22 (0.26-1.65)
== END 2025-02-25 23:59 | disposition home or self-care (01) ==
LOC: HEMC 08:14
PROVIDERS: PCP Nurse Practitioner; Visit Provider Internal Medicine Hematology & Oncology
DX: D64.9 Anemia, unspecified (principal); R06.00 Dyspnea, unspecified; Z72.0 Tobacco use; J44.9 Chronic obstructive pulmonary disease, unspecified; R22.40 Localized swelling, mass and lump, unspecified lower limb
CPT/HCPCS: 36415; 80053; 82607; 82728; 82746; 82784; 83521; 83540; 83550; 83615; 84155; 84165; 85025; 85045; 85652; 86140; 86334; G0463